=== PATIENT | female | born 1965 | race Caucasian/White ===

== ENCOUNTER 2019-12-28 10:11 | Outpatient (REF) | payer MEDICARE, MEDICAID, SELFPAY ==
[2019-12-31 23:34] LABS: SARS-CoV-2 RNA Undetected (Undetected); SARS-CoV-2 Specimen Source Nasopharynx
== END 2019-12-28 10:31 ==
LOC: NCHCN 10:11
PROVIDERS: PCP Internal Medicine; Visit Provider Nurse Practitioner Family
DX: Z11.59 Encounter for screening for other viral diseases (principal)
CPT/HCPCS: U0003

== ENCOUNTER 2021-01-02 16:07 | Outpatient (REF) | payer MEDICARE, MEDICAID, SELFPAY ==
[2021-01-02 19:57] LABS: ALT 33 U/L (14-59); AST 14 U/L (15-37); Albumin 3.9 g/dL (3.4-5.0); Alkaline Phosphatase 149 U/L (46-116); Anion Gap 9.9 mmol/L (3-11); BUN 21 mg/dL (7-18); Bilirubin, Total 0.3 mg/dL (0.2-1.0); CO2 30.1 mmol/L (21.0-32.0); CREATININE 0.8 mg/dL (0.55-1.02); Calcium 9.1 mg/dL (8.5-10.1); Chloride 103 mmol/L (98-107); Glucose 111 mg/dL (74-106); Sodium 143 mmol/L (136-145); Total Protein 7.4 g/dL (6.4-8.2)
== END 2021-01-02 16:08 | disposition home or self-care (01) ==
LOC: NCHCN 16:07
PROVIDERS: PCP Internal Medicine; Visit Provider Nurse Practitioner Family
DX: I10 Essential (primary) hypertension (principal)
CPT/HCPCS: 80053

== ENCOUNTER 2021-07-08 11:12 | Outpatient (CLI) | payer MEDICARE, MEDICAID, SELFPAY ==
--- NOTE | 2021-07-08 11:00 | RT.EKG_ITS ---
APPROVED REPORT Exam: Resting ECG Reason for Exam: NSTEMI Patient Location: O HR:78 bpm ECG Measurements Heart Rate 78 AXIS NV 161 P 70 QRSd 90 QRS 24 QT 373 T 82 QTc 425 Conclusion Sinus rhythm...normal P axis, V-rate 50- 99 Probable left atrial enlargement...P >50mS, <-0.10mV V1 Baseline wander in lead(s) III,aVF
== END 2021-07-08 11:13 | disposition home or self-care (01) ==
LOC: DI.CARD 11:12
PROVIDERS: PCP Internal Medicine; Visit Provider Internal Medicine Cardiovascular Disease
DX: I21.4 Non-ST elevation (NSTEMI) myocardial infarction (principal)
CPT/HCPCS: 93010

== ENCOUNTER → 2021-07-08 11:12 | Outpatient (BNVA) | payer MEDICARE, MEDICAID, SELFPAY | PROVIDERS: PCP Internal Medicine; Referring Provider Internal Medicine; Visit Provider Internal Medicine Cardiovascular Disease | DX: I73.9 Peripheral vascular disease, unspecified (principal); I25.2 Old myocardial infarction; K43.9 Ventral hernia without obstruction or gangrene; Z79.01 Long term (current) use of anticoagulants | CPT/HCPCS: 93005; 99203; 99204 ==

== ENCOUNTER 2021-10-20 15:01 | Outpatient (REF) | payer MEDICARE, MEDICAID, SELFPAY ==
[2021-10-20 19:56] LABS: ALT 23 U/L (14-59); AST 18 U/L (15-37); Albumin 3.4 g/dL (3.4-5.0); Alkaline Phosphatase 132 U/L (46-116); BUN 14 mg/dL (7-18); Bilirubin, Total 0.6 mg/dL (0.2-1.0); CREATININE 0.7 mg/dL (0.55-1.02); Calcium 9.2 mg/dL (8.5-10.1); Calculated LDL 66 mg/dL (<100); Chloride 100 mmol/L (98-107); Cholesterol 124 mg/dL (<200); Glucose 105 mg/dL (74-106); HDL Cholesterol 39 mg/dL (40-60); Sodium 138 mmol/L (136-145); Total Protein 7.4 g/dL (6.4-8.2); Triglyceride 98 mg/dL (<150)
== END 2021-10-20 15:02 | disposition home or self-care (01) ==
LOC: NCHCN 15:01
PROVIDERS: PCP Nurse Practitioner Family; Visit Provider Nurse Practitioner Family
DX: I25.10 Atherosclerotic heart disease of native coronary artery without angina pectoris (principal); I21.4 Non-ST elevation (NSTEMI) myocardial infarction
CPT/HCPCS: 80053; 80061

== ENCOUNTER → 2021-11-11 13:02 | Outpatient (BNVA) | payer MEDICARE, MEDICAID, SELFPAY | PROVIDERS: PCP Nurse Practitioner Family; Referring Provider Internal Medicine; Visit Provider Internal Medicine Cardiovascular Disease | DX: I48.0 Paroxysmal atrial fibrillation (principal); I25.2 Old myocardial infarction; Z79.01 Long term (current) use of anticoagulants | CPT/HCPCS: 99214 ==

== ENCOUNTER 2022-07-08 12:39 | Outpatient (REF) | payer MEDICARE, MEDICAID, SELFPAY ==
--- OUTSIDE RECORDS SUMMARY | 2022-07-08 12:43 | XMS_ITS | Continuity of Care Document ---
Author Name Unknown Organization [facility] Address [address] [place] [address] Care Team Providers Care Nutrition Educator Name Role Phone EdisonvenuNya Edvin Primary Care Physician [phone] Encounter [facility] Date(s): 03/17/22 - 03/17/[address] [address] Encounter Diagnosis Abdominal hernia(Discharge Diagnosis) - 03/17/22 Unspecified abdominal hernia without obstruction or gangrene(Final) - Discharge Disposition: Home or Self Care Attending Physician: Janice Diaz MD Admitting Physician: Janice Diaz MD Allergies, Adverse Reactions, Alerts Substance Reaction Severity Status doxycycline Skin rash Unknown Active acetaminophen-hydrocodone Skin rash Unknown Ac tive sulfADIAZINE Skin rash Unknown Active Immunizations Given and Recorded Vaccine Date Status Refusal Reason pneumococcal 13-valent conjugate vaccine 05/27/16 Recorded pneumococcal 23-polyvalent vaccine 07/02/15 Record ed Medications albuterol 90 mcg/inh aerosol inhaler 0 Refill(s) Start Date: 10/29/21 Status: Ordered aspirin 81 mg oral delayed release tablet 0 Refill(s) Start Date: 10/29/21 Status: Ordered atorvastatin 80 mg oral tablet 0 Refill(s) Start Date: 10/29/21 Status: Ordered clopidogrel 75 mg oral tablet 0 Refill(s) Start Date: 10/29/21 Status: Ordered Eliquis 5 mg oral tablet 0 Refill(s) Start Date: 10/29/21 Status: Ordered furosemide 20 mg oral tablet 0 Refill(s) Start Date: 10/29/21 Status: Ordered gabapentin 300 mg oral capsule 0 Refill(s) Start Date: 10/29/21 Status: Ordered levothyroxine 50 mcg (0.05 mg) oral tablet 0 Refill(s) Start Date: 10/29/21 Status: Ordered losartan 50 mg oral tablet 0 Refill(s) Start Date: 10/29/21 Status: Ordered nitroglycerin 0.4 mg sublingual tablet 0 Refill(s) Start Date: 10/29/21 Status: Ordered pantoprazole 40 mg oral delayed release tablet 0 Refill(s) Start Date: 10/29/21 Status: Ordered traZODone 50 mg oral tablet 0 Refill(s) Start Date: 10/29/21 Status: Ordered Trelegy Ellipta 100 mcg-62.5 mcg-25 mcg/inh inhalation powder 0 Refill(s) Start Date: 10/29/21 Status: Ordered Results Laboratory List Name Date CBC w/ Diff 03/17/22 Comprehensive Metabolic Panel (CMP) 03/17 Lactic Acid 03/17/22 Urinalysis with Micro if Indicated and C ulture if Indicated 03/17/22 Automated Diff 03/17/22 Most recent to oldest [Reference Range]: 1 WBC [5.0-10.0 x10^3/mcL] 12.8 x10^3/mcL *HI* (03/17/22 9:07 AM) RBC [4.1-5.3 x10^6/mcL] 5.3 x10^6/mcL (03/17/22 9:07 AM) Neutro Auto [40.0-75.0 %] 71.4 % (03/17/22 9:07 AM) Lymph Auto [20.0-50.0 %] 17.0 % *LOW* (03/17/22 9:07 AM) [place] Auto [2.0-15.0 %] 7.4 % (03/17/22 9:07 AM) Basophil Auto [0.0-1.0 %] 0.8 % (03/17/22 9:07 AM) BUN [7-18 mg/dL] 15 mg/dL (03/17/22 9:07 AM) UA Color Yellow (03/17/22 9:07 AM) Glucose Level [74-106 mg/dL] 104 mg/dL (03/17/22 9:07 AM) Potassium Level [3.5-5.1 mmol/L] 3.8 mmo l/L (03/17/22 9:07 AM) MCV [80.0-96.0] 86.6 (03/17/22 9:07 AM) UA Urobilinogen Normal (03/17/22 9:07 AM) UA Bili [Negative] Negative (03/17/22 9:07 AM) UA Ketones Negative (03/17/22 9:07 AM) AST [15-37 unit/L] 23 unit/L (03/17/22 9:07 AM) ALT [14-59 unit/L] 32 unit/L (03/17/22 9:07 AM) MCHC [31.0-35.0 g/dL] 31.7 g/dL (03/17/22 9:07 AM) Sodium Level [136-145 mmol/L] 142 mmol/L (03/17/22 9:07 AM) UA Leuk Est Negative (03/17/22 9:07 AM) UA Nitrite Negative (03/17/22 9:07 AM) UA Glucose [Negative] Negative (03/17/22 9:07 AM) Hct [37.0-47.0 %] 45.7 % (03/17/22 9:07 AM) Calcium Level [8.5-10.1 mg/dL] 9.0 mg/dL (03/17/22 9:07 AM) Albumin Level [3.4-5.0 g/dL] 3.5 g/dL (03/17/22 9:07 AM) Protein Total [6.4-8.2 g/dL] 7.4 g/dL (03/17/22 9:07 AM) UA Protein Negative (03/17/22 9:07 AM) MCH [26.0-32.0 pg] 27.5 pg (03/17/22 9:07 AM) Neutro Absolute 9.1 x10^3/mcL *NA* (03/17/22 9:07 AM) Bilirubin Total [0.2-1.0 mg/dL] 1.0 mg/d L (03/17/22 9:07 AM) Hgb [12.0-16.0 g/dL] 14.5 g/dL (03/17/22 9:07 AM) Alk Phos [46-146 unit/L] 146 unit/L (03/17/22 9:07 AM) UA Blood Negative (03/17/22 9:07 AM) UA Spec Grav 1.020 *NA* (03/17/22 9:07 AM) Platelets [130-450 x10^3/mcL] 456 x10^3/ mcL *HI* (03/17/22 9:07 AM) CO2 [21-32 mmol/L] 31 mmol/L (03/17/22 9:07 AM) Lactic Acid Lvl [0.7-2.1 mmol/L] 1.1 mmo l/L (03/17/22 9:07 AM) UA pH 7.0 *NA* (03/17/22 9:07 AM) eGFR Non-AA [>=60] 85 (03/17/22 9:07 AM) eGFR AA [>=60] 85 (03/17/22 9:07 AM) UA Appear Clear (03/17/22 9:07 AM) Chloride Level [98-107 mmol/L] 102 mmol/ L (03/17/22 9:07 AM) RDW-CV [11.7-17.0 %] 15.0 % (03/17/22 9:07 AM) Imm Gran Auto [0.0-0.9 %] 0.5 % (03/17/22 9:07 AM) Creatinine Level [0.55-1.02 mg/dL] 0.80 mg/dL (03/17/22 9:07 AM) Eos, Auto [1.0-6.0 %] 2.9 % (03/17/22 9:07 AM) Vital Signs Most recent to oldest [Reference Range]: 1 2 3 Temperature Tympanic [36.6-37.9 Deg C] 35.7 Deg C *LOW* (03/17/22 8:22 AM) Apical Heart Rate [60-100 bpm] 74 bpm (03/17/22 9:14 AM) Heart Rate Monitored [60-100 bpm] 75 bpm (03/17/22 11:22 AM) 76 bpm (03/17/22 10:30 AM) Respiratory Rate [12-24 br/min] 23 br/min (03/17/22 11:22 AM) 20 br/min (03/17/22 10:30 AM) 18 br/min (03/17/22 9:14 AM) Blood Pressure [90-140/60-90 mmHg] 129/48mmHg (03/17/22 11:22 AM) 118/68mmHg (03/17/22 9:14 AM) Weight 90.30 kg (03/17/22 8:22 AM) Weight Dosing 90.30 kg (03/17/22 8:34 AM) Height 160.200 cm (03/17/22 8:22 AM) Height/Length Dosing 160.200 cm (03/17/22 8:34 AM) Body Mass Index 35.000 kg/m2 (03/17/22 8:22 AM) Social History Social History Type Response Tobacco Former tobacco user Tobacco Use:. States that she stopped a few days ago per day. Sex Female Hospital Discharge Instructions Patient Education 03/17/2022 11:08:43 Hernia, Adult Hernia, Adult A hernia is the bulging of an organ or tissue through a weak spot in the muscles of the abdomen (abdominal wall). Hernias develop most often near the belly button (navel) or the area where the leg meets the lower abdomen (groin). Common types of hernias include: ??? Incisional hernia. This type bulges through a scar from an abdominal surgery. ??? Umbilical hernia. This type develops near the navel. ??? Inguinal hernia. This type develops in the groin or scrotum. ??? Femoral hernia. This type develops under the groin, in the upper thigh area. ??? Hiatal hernia. This type occurs when part of the stomach slides above the muscle that separatesthe abdomen from the chest (diaphragm). What are the causes? This condition may be caused by: ??? Heavy lifting. ??? Coughing over a long period of time. ??? Straining to have a bowel movement. Constipation can lead to straining. ??? An incision made during an abdominal surgery. ??? A physical problem that is present at (congenital defect). ??? Being overweight or obese. ??? Smoking. ??? Excess fluid in the abdomen. ??? Undescended testicles in males. What are the signs or symptoms? The main symptom is a skin-colored, rounded bulge in the area of the hernia. However, a bulge may not always be present. It may grow bigger or be more visible when you cough or strain (such as when lifting something heavy). A hernia that can be pushed back into the area (is reducible) rarely causes pain. A hernia that cannot be pushed back into the area (is incarcerated) may lose its blood supply (become strangulated). A hernia that is incarcerated may cause: ??? Pain. ??? Fever. ??? Nausea and vomiting. ??? Swelling. ??? Constipation. How is this diagnosed? A hernia may be diagnosed based on: ??? Your symptoms and medical history. ??? A physical exam. Your health care provider may ask you to cough or move in certain ways to see if the hernia becomes visible. ??? Imaging tests, such as: ??? X-rays. ??? Ultrasound. ??? CT scan. How is this treated? A hernia that is small and painless may not need to be treated. A hernia that is large or painful may be treated with surgery. Inguinal hernias may be treated with surgery to prevent incarceration orstrangulation. Strangulated hernias are always treated with surgery because a lack of blood supply to the trapped organ or tissue can cause it to . Surgery to treat a hernia involves pushing the bulge back into place and repairing the weak area ofthe muscle or abdominal wall. Follow these instructions at home: Activity ??? Avoid straining. ??? Do not lift anything that is heavier than 10 lb (4.5 kg), or the limit that you are told, untilyour health care provider says that it is safe. ??? When lifting heavy objects, lift with your leg muscles, not your back muscles. Preventing constipation ??? Take actions to prevent constipation. Constipation leads to straining with bowel movements, which can make a hernia worse or cause a hernia repair to break down. Your health care provider may recommend that you: ??? Drink enough fluid to keep your urine pale yellow. ??? Eat foods that are high in fiber, such as fresh fruits and vegetables, whole grains, and beans. ??? Limit foods that are high in fat and processed sugars, such as fried or sweet foods. ??? Take an auqn-mjs-ikddmdk or prescription medicine for constipation. General instructions ??? When coughing, try to cough gently. ??? You may try to push the hernia back in place by very gently pressing on it while lying down. Donot try to force the bulge back in if it will not push in easily. ??? If you are overweight, work with your health care provider to lose weight safely. ??? Do not use any products that contain nicotine or tobacco, such as cigarettes and e-cigarettes. If you need help quitting, ask your health care provider. ??? If you are scheduled for hernia repair, watch your hernia for any changes in shape, size, or color. Tell your health care provider about any changes or new symptoms. ??? Take namt-ezq-ubaxvrg and prescription medicines only as told by your health care provider. ??? Keep all follow-up visits as told by your health care provider. This is important. Contact a health care provider if: ??? You develop new pain, swelling, or redness around your hernia. ??? You have signs of constipation, such as: ??? Fewer bowel movements in a week than normal. ??? Difficulty having a bowel movement. ??? Stools that are dry, hard, or larger than normal. Get help right away if: ??? You have a fever. ??? You have abdomen pain that gets worse. ??? You feel nauseous or you vomit. ??? You cannot push the hernia back in place by very gently pressing on it while lying down. Do nottry to force the bulge back in if it will not push in easily. ??? The hernia: ??? Changes in shape, size, or color. ??? Feels hard or tender. These symptoms may represent a serious problem that is an emergency. Do not wait to see if the symptoms will go away. Get medical help right away. Call your local emergency services (911 in the [place] Summary ??? A hernia is the bulging of an organ or tissue through a weak spot in the muscles of the abdomen(abdominal wall). ??? The main symptom is a skin-colored, rounded lump (bulge) in the hernia area. However, a bulge may not always be present. It may grow bigger or more visible when you cough or strain (such as when having a bowel movement). ??? A hernia that is small and painless may not need to be treated. A hernia that is large or painful may be treated with surgery. ??? Surgery to treat a hernia involves pushing the bulge back into place and repairing the weak part of the abdomen. This information is not intended to replace advice given to you by your health care provider. Make sure you discuss any questions you have with your health care provider. Document Revised: 06/15/2019 Document Reviewed: 11/24/2017 [employer] Patient Education ?? 2020 [employer]. Physician Emergency department Note * Janice Diaz MD: PERFORM Event Display: ED Note Physician Authored Date: [id number] ADAIR KONG :1965 Age:57 years Sex:Female Visit Date:03/17/2022 Primary Care Physician: Nya Hernandez NP Basic Information Time Seen: Janice Diaz MD / 03/17/2022 08:23 Chief Complaint Patient has been vomiting since last night. Has a large hernia midline abdomen. States that the pain has gotten worse and the hernia has grown. 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 The patient says she was in her usual state of health??last evening.?? She reheated??some ham and cheese that her jsndkjhs-qn-dqt had made previously??and ate that for dinner. ??Shortly after??she had some severe abdominal cramping??and an episode of vomiting.?? After that she felt well again??and went to sleep.?? Around 2 AM she woke up again and had another episode of vomiting associated with cramping.?? Her symptoms subsided and she currently feels well with no abdominal pain??or nausea.?? She has had no constipation or diarrhea??and normal bowel movements??with no blood.?? This morning however she noted cloudy urine??and says that she is wondering if she has a UTI as she has had severalof them.?? She says she has no dysuria or hematuria??but also says that she never does with her UTIs.?? She has also noticed??increase in the size of her umbilical hernia??since the 2 episodes of vomiting.?? Her kqsmwowv-cw-yub says that she was scheduled??for surgical repair of this hernia??at [facility]??on February 18??but that she went back to smoking so they did not perform the surgery.??The patient's daughter in law reports slight redness over abdominal wall at the hernia site that has been present and unchanged in the past few weeks. The patient denies chest pain,??shortness of breath, dizziness, palpitations??or fatigue. Review of Systems: As above Physical Exam Vitals & Measurements T:??35.7?C ??(Tympanic)?? HR:??75??(Monitored)?? RR:??23?? BP:??129/48?? SpO2:??99%?? HT:??160.200??cm?? WT:??90.30??kg?? BMI:??35.000?? O2 Therapy:??Room air?? General: A&Ox3, Calm, no apparent distress, well developed, pleasant and cooperative ?? HEENT: Head ATNC. Eyes: DARLENE. Extraocular Mobility: intact and symmetrical. Conjunctiva: non-injected, anicteric, no discharge. Oral Cavity: moist. Neck: no masses, no crepitus. Lymph Nodes: no cervical lymphadenopathy? Respiratory: CTA bilaterally, no wheezing, no rales/crackles? CV: RRR, normal S1, normal S2, no murmurs, rubs or gallops ?? Abdomen : obese, large nonreducible??nontender??umbilical hernia??with redish - normal warmth - overlying skin. The abdomen is soft, non-tender, non-distended, no rebound or guarding, no hepatosplenomegaly ?? Extremities: Rt AKA, LLE with??no le swelling, warm and well-perfused, no cyanosis, capillary refill <2 seconds? Skin: no rash, no lesions, no bruising? Neuro: normal tone, normal strength in all 4 extremities, sensation intact?? 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 Thorough chart review performed. The patient is well nontoxic-appearing with reassuring vital signs, appears well-hydrated There is a large??nonreducible nontender??hernia??with??some skin changes??without evidence of??cellulitis, but the skin changes are concerning for??some local ischemia in that area Unclear etiology of??episodes of vomiting,??possibly food poisoning??but the patient has no diarrhea, possibly UTI, less likely atypical ACS Plan:??Labs,??ekg, Zofran as needed but patient currently not nauseous,??small amount of fluids,??CT of the abdomen pelvis Procedure No Qualifying Data Reexamination/Reevaluation Labs and UA unremarkable except for very mild leukocytosis.CT shows worsening hernia without strangulation or ischemia. The patient ate a few crackers and drank some coffee per her requested, with nonausea or vomiting. She requested d/c greg. Discussed need to reach out to her surgeon to reschedulesurgery, avoid smoking, discussed return precautions. All questions answered. Assessment/Plan 1.??Abdominal hernia??K46.9 Ordered: Discharge Patient, 03/17/22 12:27:00 EST, Constant Indicator ?? Orders: !-Zofran, 4 mg = 2 mL, IV Push, Soln, every 6 hr, PRN nausea/vomiting, First Dose: 03/17/22 8:47:00EST, STAT Patient Education Hernia, Adult Medication Reconciliation Unchanged albuterol (albuterol 90 mcg/inh aerosol inhaler) ?? apixaban (Eliquis 5 mg oral tablet) ?? aspirin (aspirin 81 mg oral delayed release tablet) ?? atorvastatin (atorvastatin 80 mg oral tablet) ?? clopidogrel (clopidogrel 75 mg oral tablet) ?? fluticasone/umeclidinium/vilanterol (Trelegy Ellipta 100 mcg-62.5 mcg-25 mcg/inh inhalation powder) ?? furosemide (furosemide 20 mg oral tablet) ?? gabapentin (gabapentin 300 mg oral capsule) ?? levothyroxine (levothyroxine 50 mcg (0.05 mg) oral tablet) ?? losartan (losartan 50 mg oral tablet) ?? nitroglycerin (nitroglycerin 0.4 mg sublingual tablet) ?? pantoprazole (pantoprazole 40 mg oral delayed release tablet) ?? traZODone (traZODone 50 mg oral tablet) Problem List/Past Medical History Ongoing No qualifying data Historical No qualifying data Medication Administration Given 0.9% NaCl bolus, 500 mL, IV Bolus Allergies acetaminophen-hydrocodone??(Skin rash) doxycycline??(Skin rash) sulfADIAZINE??(Skin rash) Social History Alcohol Past- Comments: Quit about 3 months ago Electronic Cigarette/Vaping Electronic Cigarette Use: Never. Substance Use Never Tobacco Former tobacco user Tobacco Use:. States that she stopped a few days ago per day. Lab Results CBC and Differential?? LATEST RESULTS?? HISTORICAL RESULTS?? WBC?? 03/17/22 09:07?? 12.8 ??High?? 03/15/22?? 13.0 ??High?? RBC?? 03/17/22 09:07?? 5.3?? 03/15/22?? 5.1?? Hgb?? 03/17/22 09:07?? 14.5?? 03/15/22?? 14.2?? Hct?? 03/17/22 09:07?? 45.7?? 03/15/22?? 44.1?? MCV?? 03/17/22 09:07?? 86.6?? 03/15/22?? 86.8?? MCH?? 03/17/22 09:07?? 27.5?? 03/15/22?? 28.0?? MCHC?? 03/17/22 09:07?? 31.7?? 03/15/22?? 32.2?? RDW-CV?? 03/17/22 09:07?? 15.0?? 03/15/22?? 14.6?? Platelets?? 03/17/22 09:07?? 456 ??High?? 03/15/22?? 474 ??High?? Neutro Auto?? 03/17/22 09:07?? 71.4? Lymph Auto?? 03/17/22 09:07?? 17.0 ??Low? [place] Auto?? 03/17/22 09:07?? 7.4? Eos, Auto?? 03/17/22 09:07?? 2.9? Basophil Auto?? 03/17/22 09:07?? 0.8? Imm Gran Auto?? 03/17/22 09:07?? 0.5? Neutro Absolute?? 03/17/22 09:07?? 9.1? Routine Chemistry?? LATEST RESULTS?? Sodium Level?? 03/17/22 09:07?? 142?? Potassium Level?? 03/17/22 09:07?? 3.8?? Chloride Level?? 03/17/22 09:07?? 102?? CO2?? 03/17/22 09:07?? 31?? Alk Phos?? 03/17/22 09:07?? 146?? AST?? 03/17/22 09:07?? 23?? ALT?? 03/17/22 09:07?? 32?? BUN?? 03/17/22 09:07?? 15?? Glucose Level?? 03/17/22 09:07?? 104?? Creatinine Level?? 03/17/22 09:07?? 0.80?? eGFR AA?? 03/17/22 09:07?? 85?? eGFR Non-AA?? 03/17/22 09:07?? 85?? Calcium Level?? 03/17/22 09:07?? 9.0?? Protein Total?? 03/17/22 09:07?? 7.4?? Albumin Level?? 03/17/22 09:07?? 3.5?? Bilirubin Total?? 03/17/22 09:07?? 1.0?? Lactic Acid Lvl?? 03/17/22 09:07?? 1.1? UA Macroscopic?? LATEST RESULTS?? UA Color?? 01/10/23 09:07?? Yellow?? UA Appear?? 03/17/22 09:07?? Clear?? UA Glucose?? 03/17/22 09:07?? Negative?? UA Bili?? 03/17/22 09:07?? Negative?? UA Ketones?? 03/17/22 09:07?? Negative?? UA Spec Grav?? 03/17/22 09:07?? 1.020?? UA Blood?? 03/17/22 09:07?? Negative?? UA pH?? 03/17/22 09:07?? 7.0?? UA Protein?? 03/17/22 09:07?? Negative?? UA Urobilinogen?? 03/17/22 09:07?? Normal?? UA Nitrite?? 03/17/22 09:07?? Negative?? UA Leuk Est?? 03/17/22 09:07?? Negative? Electronically Signed on 03/17/22 12:34 PM Janice Diaz MD Emergency department Discharge instructions * Janice Diaz MD: PERFORM Event Display: ED Discharge Information Authored Date: [id number] ADAIR KONG :1965 Age:57 years Sex:Female Visit Date:03/17/2022 Primary Care Physician: Nya Hernandez CONDUIT BENDER Discharge Instructions We would like to thank you for allowing us to assist you with your healthcare needs. The following includes patient education materials and information regarding your injury/illness. Diagnosis from Today's Visit Abdominal hernia Discharge Vitals Temperature??(Tympanic) 96.3 ??F (35.7 ??C) Heart Rate??(Monitored) 75 Respiratory Rate?? 23 Blood Pressure?? 129/48?? Height?? 63.07 in (160.200 cm) Weight?? 199.11 lb (90.30 kg) BMI?? 35.000 Allergies acetaminophen-hydrocodone??(Skin rash) doxycycline??(Skin rash) sulfADIAZINE??(Skin rash) What to Do Next Instructions from Your Care Team Please??eat and drink small amounts of food and fluids every few hours. ??Follow-up with your surgeon??for rescheduling of your hernia repair.?? Return to the emergency department for any new or worsening symptoms. You were treated today on an emergency basis; it may be person to contact your primary care provider to notify them of your visit today. You may have been referred to your regular doctor or a specialist, please follow up as instructed. If your condition worsens or you can't get in to see the doctor, contact the Emergency Department. Medications What When Instructions Next Dose Unchanged albuterol (albuterol 90 mcg/ inh aerosol inhaler) Unchanged apixaban (Eliquis 5 mg oral tablet) Unchanged aspirin (aspirin 81 mg oral delayed release tablet) Unchanged atorvastatin (atorvastatin 80 mg oral tablet) Unchanged clopidogrel (clopidogrel 75 mg oral tablet) Unchanged fluticasone/ umeclidinium/ vilanterol (Trelegy Ellipta 100 mcg-62.5 mcg-25 mcg/ inh inhalation powder) Unchanged furosemide (furosemide 20 mg oral tablet) Unchanged gabapentin (gabapentin 300 mg oral capsule) Unchanged levothyroxine (levothyroxine 50 mcg (0.05 mg) oral tablet) Unchanged losartan (losartan 50 mg oral tablet) Unchanged nitroglycerin (nitroglycerin 0.4 mg sublingual tablet) Unchanged pantoprazole (pantoprazole 40 mg oral delayed release tablet) Unchanged traZODone (traZODone 50 mg oral tablet) Education Materials Hernia, Adult A hernia is the bulging of an organ or tissue through a weak spot in the muscles of the abdomen (abdominal wall). Hernias develop most often near the belly button (navel) or the area where the leg meets the lower abdomen (groin). Common types of hernias include: ? Incisional hernia. This type bulges through a scar from an abdominal surgery. ? Umbilical hernia. This type develops near the navel. ? Inguinal hernia. This type develops in the groin or scrotum. ? Femoral hernia. This type develops under the groin, in the upper thigh area. ? Hiatal hernia. This type occurs when part of the stomach slides above the muscle that separates theabdomen from the chest (diaphragm). What are the causes? This condition may be caused by: ? Heavy lifting. ? Coughing over a long period of time. ? Straining to have a bowel movement. Constipation can lead to straining. ? An incision made during an abdominal surgery. ? A physical problem that is present at (congenital defect). ? Being overweight or obese. ? Smoking. ? Excess fluid in the abdomen. ? Undescended testicles in males. What are the signs or symptoms? The main symptom is a skin-colored, rounded bulge in the area of the hernia. However, a bulge may not always be present. It may grow bigger or be more visible when you cough or strain (such as when lifting something heavy). A hernia that can be pushed back into the area (is reducible) rarely causes pain. A hernia that cannot be pushed back into the area (is incarcerated) may lose its blood supply (become strangulated). A hernia that is incarcerated may cause: ? Pain. ? Fever. ? Nausea and vomiting. ? Swelling. ? Constipation. How is this diagnosed? A hernia may be diagnosed based on: ? Your symptoms and medical history. ? A physical exam. Your health care provider may ask you to cough or move in certain ways to see if the hernia becomes visible. ? Imaging tests, such as: ? X-rays. ? Ultrasound. ? CT scan. How is this treated? A hernia that is small and painless may not need to be treated. A hernia that is large or painful may be treated with surgery. Inguinal hernias may be treated with surgery to prevent incarceration orstrangulation. Strangulated hernias are always treated with surgery because a lack of blood supply to the trapped organ or tissue can cause it to . Surgery to treat a hernia involves pushing the bulge back into place and repairing the weak area ofthe muscle or abdominal wall. Follow these instructions at home: Activity ? Avoid straining. ? Do not lift anything that is heavier than 10 lb (4.5 kg), or the limit that you are told, until your health care provider says that it is safe. ? When lifting heavy objects, lift with your leg muscles, not your back muscles. Preventing constipation ? Take actions to prevent constipation. Constipation leads to straining with bowel movements, which can make a hernia worse or cause a hernia repair to break down. Your health care provider may recommend that you: ? Drink enough fluid to keep your urine pale yellow. ? Eat foods that are high in fiber, such as fresh fruits and vegetables, whole grains, and beans. ? Limit foods that are high in fat and processed sugars, such as fried or sweet foods. ? Take an iciy-zyy-yllrtze or prescription medicine for constipation. General instructions ? When coughing, try to cough gently. ? You may try to push the hernia back in place by very gently pressing on it while lying down. Do nottry to force the bulge back in if it will not push in easily. ? If you are overweight, work with your health care provider to lose weight safely. ? Do not use any products that contain nicotine or tobacco, such as cigarettes and e-cigarettes. If you need help quitting, ask your health care provider. ? If you are scheduled for hernia repair, watch your hernia for any changes in shape, size, or color.Tell your health care provider about any changes or new symptoms. ? Take hgdq-kyu-vqlxoor and prescription medicines only as told by your health care provider. ? Keep all follow-up visits as told by your health care provider. This is important. Contact a health care provider if: ? You develop new pain, swelling, or redness around your hernia. ? You have signs of constipation, such as: ? Fewer bowel movements in a week than normal. ? Difficulty having a bowel movement. ? Stools that are dry, hard, or larger than normal. Get help right away if: ? You have a fever. ? You have abdomen pain that gets worse. ? You feel nauseous or you vomit. ? You cannot push the hernia back in place by very gently pressing on it while lying down. Do not tryto force the bulge back in if it will not push in easily. ? The hernia: ? Changes in shape, size, or color. ? Feels hard or tender. These symptoms may represent a serious problem that is an emergency. Do not wait to see if the symptoms will go away. Get medical help right away. Call your local emergency services (911 in the [place] Summary ? A hernia is the bulging of an organ or tissue through a weak spot in the muscles of the abdomen (abdominal wall). ? The main symptom is a skin-colored, rounded lump (bulge) in the hernia area. However, a bulge may not always be present. It may grow bigger or more visible when you cough or strain (such as when having a bowel movement). ? A hernia that is small and painless may not need to be treated. A hernia that is large or painful may be treated with surgery. ? Surgery to treat a hernia involves pushing the bulge back into place and repairing the weak part ofthe abdomen. This information is not intended to replace advice given to you by your health care provider. Make sure you discuss any questions you have with your health care provider. Document Revised: 06/15/2019 Document Reviewed: 11/24/2017 [employer] Patient Education ?? 2020 [employer] Tests Performed Medications and Immunizations Administered Given 0.9% NaCl bolus, 500 mL, IV Bolus Lab Test Name Test Result Date/Time WBC 12.8 x10^3/mcL 03/17/2022 09:07 EST RBC 5.3 x10^6/mcL 03/17/2022 09:07 EST Hgb 14.5 g/dL 03/17/2022 09:07 EST Hct 45.7 % 03/17/2022 09:07 EST MCV 86.6 03/17/2022 09:07 EST MCH 27.5 pg 03/17/2022 09:07 EST MCHC 31.7 g/dL 03/17/2022 09:07 EST RDW-CV 15.0 % 03/17/2022 09:07 EST Platelets 456 x10^3/mcL 03/17/2022 09:07 EST Neutro Auto 71.4 % 03/17/2022 09:07 EST Lymph Auto 17.0 % 03/17/2022 09:07 EST [place] Auto 7.4 % 03/17/2022 09:07 EST Eos, Auto 2.9 % 03/17/2022 09:07 EST Basophil Auto 0.8 % 03/17/2022 09:07 EST Imm Gran Auto 0.5 % 03/17/2022 09:07 EST Neutro Absolute 9.1 x10^3/mcL 03/17/2022 09:07 EST Sodium Level 142 mmol/L 03/17/2022 09:07 EST Potassium Level 3.8 mmol/L 03/17/2022 09:07 EST Chloride Level 102 mmol/L 03/17/2022 09:07 EST CO2 31 mmol/L 03/17/2022 09:07 EST Alk Phos 146 unit/L 03/17/2022 09:07 EST AST 23 unit/L 03/17/2022 09:07 EST ALT 32 unit/L 03/17/2022 09:07 EST BUN 15 mg/dL 03/17/2022 09:07 EST Glucose Level 104 mg/dL 03/17/2022 09:07 EST Creatinine Level 0.80 mg/dL 03/17/2022 09:07 EST eGFR AA 85 03/17/2022 09:07 EST eGFR Non-AA 85 03/17/2022 09:07 EST Calcium Level 9.0 mg/dL 03/17/2022 09:07 EST Protein Total 7.4 g/dL 03/17/2022 09:07 EST Albumin Level 3.5 g/dL 03/17/2022 09:07 EST Bilirubin Total 1.0 mg/dL 03/17/2022 09:07 EST Lactic Acid Lvl 1.1 mmol/L 03/17/2022 09:07 EST UA Color YELLOW. 03/17/2022 09:07 EST UA Appear CLEAR. 03/17/2022 09:07 EST UA Glucose NEGATIVE 03/17/2022 09:07 EST UA Bili NEGATIVE 03/17/2022 09:07 EST UA Ketones NEGATIVE 03/17/2022 09:07 EST UA Spec Grav 1.020 03/17/2022 09:07 EST UA Blood NEGATIVE 03/17/2022 09:07 EST UA pH 7.0 03/17/2022 09:07 EST UA Protein NEGATIVE 03/17/2022 09:07 EST UA Urobilinogen 0.2 Uro 03/17/2022 09:07 EST UA Nitrite NEGATIVE 03/17/2022 09:07 EST UA Leuk Est NEGATIVE 03/17/2022 09:07 EST Patient/Can Reconditioner Signature Patient Name:ADAIR KONG I have received this information and my questions have been answered. Patient/Can Reconditioner Name: Patient/Can Reconditioner Signature: Relationship to Patient: Witness Name/Signature: Date: Electronically Signed on: 03/17/2022 12:27 ESTSigned by:Gabi Emergency department Note * Shari Duncan: PERFORM Event Display: ED Notes Authored Date: [id number] Patient Care team information Personnel Name: Nya Hernandez NP Address: Address: [address] [place] [id number]
--- OUTSIDE RECORDS SUMMARY | 2022-07-08 12:43 | XMS_ITS | Continuity of Care Document ---
Author Name Unknown Organization [facility] Address [address] [place] [address] Care Team Providers Care Permanent Mold Supervisor Name Role Phone David Nya Edvin Primary Care Physician [phone] Encounter [facility] Date(s): 03/30/22 - 03/30/[address] [phone] Discharge Disposition: Home or Self Care Attending Physician: Whit Nance MD Admitting Physician: Whit Nance MD Referring Physician: Whit Nance MD Allergies, Adverse Reactions, Alerts Substance Reaction Severity Status doxycycline Skin rash Unknown Active acetaminophen-hydrocodone Skin rash Unknown Ac tive sulfADIAZINE Skin rash Unknown Active Assessment and Plan Diagnostic Tests Pending * Nicotine & Metabolites, S MARCELO 03/30/22 Immunizations Given and Recorded Vaccine Date Status [...] 0 Refill(s) Start Date: 10/29/21 Status: Ordered Social History Social History Type Response Tobacco Former tobacco user Tobacco Use:. 1 Sex Female 1quit over a month ago Patient Care team information Personnel Name: Nya Hernandez NP Address: Address: [address] [place] [address]
--- OUTSIDE RECORDS SUMMARY | 2022-07-08 12:43 | XMS_ITS | Continuity of Care Document ---
Author Name Unknown Organization [facility] Address [address] [place] [address] Care Team Providers Care Senior Recruiter Name Role Phone Nya Hernandez Primary Care Physician [phone] Encounter [facility] Date(s): 03/15/22 - 03/15/[address] [phone] Discharge Disposition: Home or Self Care Attending Physician: DR. ANASTACIA KAPLAN Admitting Physician: DR. ANASTACIA KAPLAN Referring Physician: DR. ANASTACIA KAPLAN Allergies, Adverse Reactions, Alerts Substance Reaction Severity Status doxycycline Skin rash Unknown Active acetaminophen-hydrocodone Skin rash Unknown Ac tive sulfADIAZINE Skin rash Unknown Active Assessment and Plan Diagnostic Tests Pending * Nicotine & Metabolites, S MARCELO 03/15/22 Immunizations Given and Recorded Vaccine Date Status [...] Ordered Results Laboratory List Name Date CBC w/o Diff 03/15/22 Most recent to oldest [Reference Range]: 1 WBC [5.0-10.0 x10^3/mcL] 13.0 x10^3/mcL *[facility]* (03/15/22 4:44 PM) RBC [4.1-5.3 x10^6/mcL] 5.1 x10^6/mcL (03/15/22 4:44 PM) MCV [80.0-96.0] 86.8 (03/15/22 4:44 PM) MCHC [31.0-35.0 g/dL] 32.2 g/dL (03/15/22 4:44 PM) Hct [37.0-47.0 %] 44.1 % (03/15/22 4:44 PM) MCH [26.0-32.0 pg] 28.0 pg (03/15/22 4:44 PM) Hgb [12.0-16.0 g/dL] 14.2 g/dL (03/15/22 4:44 PM) Platelets [130-450 x10^3/mcL] 474 x10^3/ mcL *HI* (03/15/22 4:44 PM) RDW-CV [11.7-17.0 %] 14.6 % (03/15/22 4:44 PM) Social History Social History Type Response Tobacco Current some day tob acco user Tobacco Use:. not every day per day. Sex Female Patient Care team information Personnel Name: Nya Hernandez LOG MANAGER Address: Address: [address] [place] [phone] [place]
--- OUTSIDE RECORDS SUMMARY | 2022-07-08 12:43 | XMS_ITS | Continuity of Care Document ---
Author Name Unknown Organization [facility] Address [address] [place] [address] Care Team Providers Care Wild Animal Caretaker Name Role Phone Nya Hernandez Primary Care Physician Encounter [id number] Date(s): 03/31/22 - 03/31/[address] [address] Encounter Diagnosis Abscess(Discharge Diagnosis) - 03/31/22 Cutaneous abscess, unspecified(Final) - Other extermination supervisor (current) drug therapy(Final) - Personal history of nicotine dependence(Final) - Discharge Disposition: Home or Self Care Attending Physician: Taylor Rehman MD Admitting Physician: Taylor Rehman MD Allergies, Adverse Reactions, Alerts Substance Reaction Severity Status doxycycline Skin rash Unknown Active acetaminophen-hydrocodone Skin rash Unknown Ac tive sulfADIAZINE Skin rash Unknown Active Functional Status 03/31/22 Other exposure to Infectious Disease Non e Immunizations Given and Recorded Vaccine Date Status Refusal Reason pneumococcal 13-valent conjugate vaccine 05/27/16 Recorded pneumococcal 23-polyvalent vaccine 07/02/15 Record ed Medications albuterol 90 mcg/inh aerosol inhaler 0 Refill(s) Start Date: 10/29/21 Status: Ordered aspirin 81 mg oral delayed release tablet 0 Refill(s) Start Date: 10/29/21 Status: Ordered atorvastatin 80 mg oral tablet 0 Refill(s) Start Date: 10/29/21 Status: Ordered cephalexin 500 mg oral capsule 500 mg = 1 cap, Oral, QID, X 7 days, # 28 cap, 0 Refill(s), 04/07/22 10:25:00 EST, Pharmacy: [facility] #[id number], 160, cm, 03/31/22 9:23:00 EST, Height/Length Dosing, 89.81, kg, 03/31/22 9:23:00 EST, Weight Dosing Start Date: 03/31/22 Stop Date: 04/07/22 Status: Ordered clopidogrel 75 mg oral tablet [...] Refill(s) Start Date: 10/29/21 Status: Ordered Results Orders for Microbiology Reports Name Date Wound Culture 03/31/22 Microbiology Reports TEST:Wound Culture STATUS:Order in Progress BODY SITE:Face SOURCE:Abscess COLLECTED DATE/TIME:03/31/22 10:20 AM STAIN REPORT Moderate White Blood Cells Rare Gram Positive Cocci Vital Signs Most recent to oldest [Reference Range]: 1 Temperature Temporal Artery [36-38 Deg C ] 35.8 Deg C *LOW* (03/31/22 9:08 AM) Peripheral Pulse Rate [60-100 bpm] 71 bp m (03/31/22 9:08 AM) Respiratory Rate [12-24 br/min] 16 br/mi n (03/31/22 9:08 AM) Blood Pressure [90-140/60-90 mmHg] 120/6 9mmHg (03/31/22 9:08 AM) Weight Dosing 89.81 kg (03/31/22 9:23 AM) Weight Estimated 89.81 kg (03/31/22 9:08 AM) Height/Length Dosing 160.000 cm (03/31/22 9:23 AM) Height/Length Estimated 160.000 cm (03/31/22 9:08 AM) Social History Social History Type Response Tobacco Former tobacco user Tobacco Use:. 1 Sex Female 1quit over a month ago Hospital Discharge Instructions Patient Education 03/31/2022 09:09:52 Skin Abscess Skin Abscess A skin abscess is an infected area on or under your skin that contains a collection of pus and other material. An abscess may also be called a furuncle, carbuncle, or boil. An abscess can occur in oron almost any part of your body. Some abscesses break open (rupture) on their own. Most continue to get worse unless they are treated. The infection can spread deeper into the body and eventually into your blood, which can make you feel ill. Treatment usually involves draining the abscess. What are the causes? An abscess occurs when germs, like bacteria, pass through your skin and cause an infection. This may be caused by: ??? A scrape or cut on your skin. ??? A puncture wound through your skin, including a needle injection or insect bite. ??? Blocked oil or sweat glands. ??? Blocked and infected hair follicles. ??? A cyst that forms beneath your skin (sebaceous cyst) and becomes infected. What increases the risk? This condition is more likely to develop in people who: ??? Have a weak body defense system (immune system). ??? Have diabetes. ??? Have dry and irritated skin. ??? Get frequent injections or use illegal IV drugs. ??? Have a foreign body in a wound, such as a splinter. ??? Have problems with their lymph system or veins. What are the signs or symptoms? Symptoms of this condition include: ??? A painful, firm bump under the skin. ??? A bump with pus at the top. This may break through the skin and drain. Other symptoms include: ??? Redness surrounding the abscess site. ??? Warmth. ??? Swelling of the lymph nodes (glands) near the abscess. ??? Tenderness. ??? A sore on the skin. How is this diagnosed? This condition may be diagnosed based on: ??? A physical exam. ??? Your medical history. ??? A sample of pus. This may be used to find out what is causing the infection. ??? Blood tests. ??? Imaging tests, such as an ultrasound, CT scan, or MRI. How is this treated? A small abscess that drains on its own may not need treatment. Treatment for larger abscesses may include: ??? Moist heat or heat pack applied to the area several times a day. ??? A procedure to drain the abscess (incision and drainage). ??? Antibiotic medicines. For a severe abscess, you may first get antibiotics through an IV and then change to antibiotics by mouth. Follow these instructions at home: Medicines ??? Take gonw-who-ufxsmce and prescription medicines only as told by your health care provider. ??? If you were prescribed an antibiotic medicine, take it as told by your health care provider. Donot stop taking the antibiotic even if you start to feel better. Abscess care ??? If you have an abscess that has not drained, apply heat to the affected area. Use the heat source that your health care provider recommends, such as a moist heat pack or a heating pad. ??? Place a towel between your skin and the heat source. ??? Leave the heat on for 20???30 minutes. ??? Remove the heat if your skin turns bright red. This is especially important if you are unable to feel pain, heat, or cold. You may have a greater risk of getting burned. ??? Follow instructions from your health care provider about how to take care of your abscess. Makesure you: ??? Cover the abscess with a bandage (dressing). ??? Change your dressing or gauze as told by your health care provider. ??? Wash your hands with soap and water before you change the dressing or gauze. If soap and water are not available, use hand rigging loft repairer. ??? Check your abscess every day for signs of a worsening infection. Check for: ??? More redness, swelling, or pain. ??? More fluid or blood. ??? Warmth. ??? More pus or a bad smell. General instructions ??? To avoid spreading the infection: ??? Do not share personal care items, towels, or hot tubs with others. ??? Avoid making skin contact with other people. ??? Keep all follow-up visits as told by your health care provider. This is important. Contact a health care provider if you have: ??? More redness, swelling, or pain around your abscess. ??? More fluid or blood coming from your abscess. ??? Warm skin around your abscess. ??? More pus or a bad smell coming from your abscess. ??? A fever. ??? Muscle aches. ??? Chills or a general ill feeling. Get help right away if you: ??? Have severe pain. ??? See red streaks on your skin spreading away from the abscess. Summary ??? A skin abscess is an infected area on or under your skin that contains a collection of pus and other material. ??? A small abscess that drains on its own may not need treatment. ??? Treatment for larger abscesses may include having a procedure to drain the abscess and taking an antibiotic. This information is not intended to replace advice given to you by your health care provider. Make sure you discuss any questions you have with your health care provider. Document Revised: 06/15/2019 Document Reviewed: 04/07/2018 [employer] Patient Education ?? 2021 [employer]. Follow Up Care 03/31/2022 09:08:31 With:Follow up with primary care provider Address: When:1 to 2 weeks Physician Emergency department Note * Taylor Rehman MD: PERFORM Event Display: ED Note Physician Authored Date: [id number] ADAIR KONG :1965 Age:57 years Sex:Female Visit Date:03/31/2022 Primary Care Physician: Nya Hernandez NP Basic Information Time Seen: Taylor Rehman MD / 03/31/2022 09:35 Chief Complaint Abcess on R side chin for a few weeks. Finished abx course as prescribed by PCP 2 days ago of amoxicillin. Pt denies fevers. C/o localized pain to bump on face. History Of Present Illness: Patient reports that she has had an area on the right side of her??chin for a few weeks she thinks it was??from an abscessed tooth. ??She states her son tried to squeeze it??and it seemed to get worse after that. ??Patient did??recently finish a prescription for amoxicillin. ??No fevers.?? Patient is allergic to sulfa and doxycycline she states.?? Patient is on Eliquis and is hoping to have the area drained. Review of Systems: see hpi for ros Physical Exam Vitals & Measurements T:??35.8?C ??(Temporal Artery)?? HR:??71??(Peripheral)?? RR:??16?? BP:??120/69?? SpO2:??94%?? HT:??160.000??cm?? WT:??89.81??kg??(Estimated)?? Pain Score:??7?? O2 Therapy:??Room air?? General: Alert and oriented, well nourished,?No??acute distress Eye: PER,?Normal??conjunctiva, No scleral icterus HENT: Normocephalic??except for abscess right jaw area??normal?? hearing?? Respiratory:??Respiration??no distress??no increased work of breathing Chest: wall excursion wnl no abnormal movements no obvious deformities Musculoskeletal:?Normal?? range of motion and strength,?No??tenderness,?No??swelling Skin: Skin is warm, dry and pink,?No??rashes,?No??lesions, erythematous swollen area right lower jaw??consistent with likely abscess area Neurologic: Awake, alert and oriented X4 Psychiatric: Cooperative, appropriate mood and affect Right lower jaw gently cleaned with Hibiclens x3??0.5 cc of 1% lidocaine??instilled within the area??for local anesthetic??20-gauge needle??removed 0.5 cc of mostly??bloody??discharge Pocus small amount of fluid consistent with small abscess??present on ultrasound prior to I & D Medical Decision Making: For MDM please see under assessment and plan Procedure No Qualifying Data Assessment/Plan 1.??Abscess??L02.91 Only small amount of fluid was able to be obtained??from a 20-gauge needle aspiration and abscess area??this was enough to be able to??send??a wound culture. ??Given patient's allergies patient was placed on??Keflex 500 mg 4 times a day??patient is aware wound culture is pending??and will take several days??to??grow and report sensitivities.?? If patient worsens or does not improve will return tothe emergency department or see primary care provider. Ordered: cephalexin 500 mg oral capsule, 500 mg = 1 cap, Oral, QID, X 7 days, # 28 cap, 0 Refill(s), 04/07/22 10:25:00 EST, Pharmacy: [facility] #[id number], 160, cm, 03/31/22 9:23:00 EST, Height/Length Dosing,89.81, kg, 03/31/22 9:23:00 EST, Weight Dosing Discharge Patient, 03/31/22 10:09:00 EST, Home Independently, Constant Indicator Wound Culture, Abscess, Face, Stat collect, ST - Stat, 03/31/22 10:06:00 EST, Once, Nurse collect, Abscess, Print Label ?? Patient Education Skin Abscess Follow Up With When Contact Information Follow up with primary care provider Within 1 to 2 weeks Additional Instructions: Medication Reconciliation New Prescription cephalexin (cephalexin 500 mg oral capsule)1 Capsules Oral (given by mouth) 4 times a day for 7 Days. Refills: 0. ?? Unchanged albuterol (albuterol 90 mcg/inh aerosol inhaler) [...] No qualifying data Historical No qualifying data Allergies acetaminophen-hydrocodone??(Skin rash) doxycycline??(Skin rash) sulfADIAZINE??(Skin rash) Social History Alcohol Past- Comments: Quit about 3 months ago Electronic Cigarette/Vaping Electronic Cigarette Use: Never. Home/Environment Living situation: Home with assistance. Substance Use Never Tobacco Former tobacco user Tobacco Use:.- Comments: quit over a month ago Electronically Signed on 03/31/22 10:42 AM Taylor Rehman MD Emergency department Discharge instructions * Taylor Rehman MD: PERFORM Event Display: ED Discharge Information Authored Date: [id number] ADAIR KONG :1965 Age:57 years Sex:Female Visit Date:03/31/2022 Primary Care Physician: Nya Hernandez INFORMATION TECHNOLOGY DATA ANALYST Discharge Instructions We would like to thank you for allowing us to assist you with your healthcare needs. The following includes patient education materials and information regarding your injury/illness. Diagnosis from Today's Visit Abscess Discharge Vitals Temperature??(Temporal Artery) 96.4 ??F (35.8 ??C) Heart Rate??(Peripheral) 71 Respiratory Rate?? 16 Blood Pressure?? 120/69?? Height?? 62.99 in (160.000 cm) Weight??(Estimated) 198.03 lb (89.81 kg) Allergies acetaminophen-hydrocodone??(Skin rash) doxycycline??(Skin rash) sulfADIAZINE??(Skin rash) What to Do Next Instructions from Your Care Team Keflex (cephalexin) 500 mg 4 times a day for 7 days.?? If you worsen return to the emergency department or see your primary care provider. You may take up to 1000 mg??of Tylenol??(acetaminophen) every 6 hours as needed??for pain or discomfort for maximum 4000 mg in 24 hours or you may permanently hurt your liver. You Need to Schedule the Following Appointments Follow Up with??Follow up with primary care provider When:??Within 1 to 2 weeks You were treated today on an emergency basis; it may be person to contact your primary care provider to notify them of your visit today. You may have been referred to your regular doctor or a specialist, please follow up as instructed. If your condition worsens or you can't get in to see the doctor, contact the Emergency Department. Medications What How Much When Why Instructions Next Dose New cephalexin (cephalexin 500 mg oral capsule) 1 Capsules Oral (given by mouth) 4 times a day Abscess Duration: 7 Days Printed Prescription Unchanged albuterol (albuterol 90 mcg/ inh aerosol [...] (traZODone 50 mg oral tablet) Education Materials Skin Abscess A skin abscess is an infected area on or under your skin that contains a collection of pus and other material. An abscess may also be called a furuncle, carbuncle, or boil. An abscess can occur in oron almost any part of your body. Some abscesses break open (rupture) on their own. Most continue to get worse unless they are treated. The infection can spread deeper into the body and eventually into your blood, which can make you feel ill. Treatment usually involves draining the abscess. What are the causes? An abscess occurs when germs, like bacteria, pass through your skin and cause an infection. This may be caused by: ? A scrape or cut on your skin. ? A puncture wound through your skin, including a needle injection or insect bite. ? Blocked oil or sweat glands. ? Blocked and infected hair follicles. ? A cyst that forms beneath your skin (sebaceous cyst) and becomes infected. What increases the risk? This condition is more likely to develop in people who: ? Have a weak body defense system (immune system). ? Have diabetes. ? Have dry and irritated skin. ? Get frequent injections or use illegal IV drugs. ? Have a foreign body in a wound, such as a splinter. ? Have problems with their lymph system or veins. What are the signs or symptoms? Symptoms of this condition include: ? A painful, firm bump under the skin. ? A bump with pus at the top. This may break through the skin and drain. Other symptoms include: ? Redness surrounding the abscess site. ? Warmth. ? Swelling of the lymph nodes (glands) near the abscess. ? Tenderness. ? A sore on the skin. How is this diagnosed? This condition may be diagnosed based on: ? A physical exam. ? Your medical history. ? A sample of pus. This may be used to find out what is causing the infection. ? Blood tests. ? Imaging tests, such as an ultrasound, CT scan, or MRI. How is this treated? A small abscess that drains on its own may not need treatment. Treatment for larger abscesses may include: ? Moist heat or heat pack applied to the area several times a day. ? A procedure to drain the abscess (incision and drainage). ? Antibiotic medicines. For a severe abscess, you may first get antibiotics through an IV and then change to antibiotics by mouth. Follow these instructions at home: Medicines ? Take xtow-rml-mwcicxo and prescription medicines only as told by your health care provider. ? If you were prescribed an antibiotic medicine, take it as told by your health care provider. Do notstop taking the antibiotic even if you start to feel better. Abscess care ? If you have an abscess that has not drained, apply heat to the affected area. Use the heat source that your health care provider recommends, such as a moist heat pack or a heating pad. ? Place a towel between your skin and the heat source. ? Leave the heat on for 20???30 minutes. ? Remove the heat if your skin turns bright red. This is especially important if you are unable to feel pain, heat, or cold. You may have a greater risk of getting burned. ? Follow instructions from your health care provider about how to take care of your abscess. Make sure you: ? Cover the abscess with a bandage (dressing). ? Change your dressing or gauze as told by your health care provider. ? Wash your hands with soap and water before you change the dressing or gauze. If soap and water are not available, use hand rigging loft repairer. ? Check your abscess every day for signs of a worsening infection. Check for: ? More redness, swelling, or pain. ? More fluid or blood. ? Warmth. ? More pus or a bad smell. General instructions ? To avoid spreading the infection: ? Do not share personal care items, towels, or hot tubs with others. ? Avoid making skin contact with other people. ? Keep all follow-up visits as told by your health care provider. This is important. Contact a health care provider if you have: ? More redness, swelling, or pain around your abscess. ? More fluid or blood coming from your abscess. ? Warm skin around your abscess. ? More pus or a bad smell coming from your abscess. ? A fever. ? Muscle aches. ? Chills or a general ill feeling. Get help right away if you: ? Have severe pain. ? See red streaks on your skin spreading away from the abscess. Summary ? A skin abscess is an infected area on or under your skin that contains a collection of pus and other material. ? A small abscess that drains on its own may not need treatment. ? Treatment for larger abscesses may include having a procedure to drain the abscess and taking an antibiotic. This information is not intended to replace advice given to you by your health care provider. Make sure you discuss any questions you have with your health care provider. Document Revised: 06/15/2019 Document Reviewed: 04/07/2018 [employer] Patient Education ?? 2021 [employer] Patient/Medical Staff Assistant Signature Patient Name:ADAIR KONG I have received this information and my questions have been answered. Patient/Medical Staff Assistant Name: Patient/Medical Staff Assistant Signature: Relationship to Patient: Witness Name/Signature: Date: Electronically Signed on: 03/31/2022 10:15 ESTSigned by:Taylor Ghosh MD: PERFORM Event Display: ED Discharge Information Authored Date: [id number] ADAIR KONG :1965 Age:57 years Sex:Female Visit Date:03/31/2022 Primary Care Physician: Nya Hernandez INFORMATION TECHNOLOGY DATA ANALYST Discharge Instructions We would like to thank you for allowing us to assist you with your healthcare needs. The following includes patient education materials and information regarding your injury/illness. Diagnosis from Today's Visit Abscess Discharge Vitals Temperature??(Temporal Artery) 96.4 ??F (35.8 ??C) Heart Rate??(Peripheral) 71 Respiratory Rate?? 16 Blood Pressure?? 120/69?? Height?? 62.99 in (160.000 cm) Weight??(Estimated) 198.03 lb (89.81 kg) Allergies acetaminophen-hydrocodone??(Skin rash) doxycycline??(Skin rash) sulfADIAZINE??(Skin rash) What to Do Next Instructions from Your Care Team Keflex (cephalexin) 500 mg 4 times a day for 7 days.?? If you worsen return to the emergency department or see your primary care provider. You may take up to 1000 mg??of Tylenol??(acetaminophen) every 6 hours as needed??for pain or discomfort for maximum 4000 mg in 24 hours or you may permanently hurt your liver. You Need to Schedule the Following Appointments Follow Up with??Follow up with primary care provider When:??Within 1 to 2 weeks You were treated today on an emergency basis; it may be person to contact your primary care provider to notify them of your visit today. You may have been referred to your regular doctor or a specialist, please follow up as instructed. If your condition worsens or you can't get in to see the doctor, contact the Emergency Department. Medications What How Much When Why Instructions Next Dose New cephalexin (cephalexin 500 mg oral capsule) 1 Capsules Oral (given by mouth) 4 times a day Abscess Duration: 7 Days Printed Prescription Unchanged albuterol (albuterol 90 mcg/ inh aerosol [...] (traZODone 50 mg oral tablet) Education [employer] Skin Abscess A skin abscess is an infected area on or under your skin that contains a collection of pus and other material. An abscess may also be called a furuncle, carbuncle, or boil. An abscess can occur in oron almost any part of your body. Some abscesses break open (rupture) on their own. Most continue to get worse unless they are treated. The infection can spread deeper into the body and eventually into your blood, which can make you feel ill. Treatment usually involves draining the abscess. What are the causes? An abscess occurs when germs, like bacteria, pass through your skin and cause an infection. This may be caused by: ? A scrape or cut on your skin. ? A puncture wound through your skin, including a needle injection or insect bite. ? Blocked oil or sweat glands. ? Blocked and infected hair follicles. ? A cyst that forms beneath your skin (sebaceous cyst) and becomes infected. What increases the risk? This condition is more likely to develop in people who: ? Have a weak body defense system (immune system). ? Have diabetes. ? Have dry and irritated skin. ? Get frequent injections or use illegal IV drugs. ? Have a foreign body in a wound, such as a splinter. ? Have problems with their lymph system or veins. What are the signs or symptoms? Symptoms of this condition include: ? A painful, firm bump under the skin. ? A bump with pus at the top. This may break through the skin and drain. Other symptoms include: ? Redness surrounding the abscess site. ? Warmth. ? Swelling of the lymph nodes (glands) near the abscess. ? Tenderness. ? A sore on the skin. How is this diagnosed? This condition may be diagnosed based on: ? A physical exam. ? Your medical history. ? A sample of pus. This may be used to find out what is causing the infection. ? Blood tests. ? Imaging tests, such as an ultrasound, CT scan, or MRI. How is this treated? A small abscess that drains on its own may not need treatment. Treatment for larger abscesses may include: ? Moist heat or heat pack applied to the area several times a day. ? A procedure to drain the abscess (incision and drainage). ? Antibiotic medicines. For a severe abscess, you may first get antibiotics through an IV and then change to antibiotics by mouth. Follow these instructions at home: Medicines ? Take gvzr-wmy-afnihbi and prescription medicines only as told by your health care provider. ? If you were prescribed an antibiotic medicine, take it as told by your health care provider. Do notstop taking the antibiotic even if you start to feel better. Abscess care ? If you have an abscess that has not drained, apply heat to the affected area. Use the heat source that your health care provider recommends, such as a moist heat pack or a heating pad. ? Place a towel between your skin and the heat source. ? Leave the heat on for 20???30 minutes. ? Remove the heat if your skin turns bright red. This is especially important if you are unable to feel pain, heat, or cold. You may have a greater risk of getting burned. ? Follow instructions from your health care provider about how to take care of your abscess. Make sure you: ? Cover the abscess with a bandage (dressing). ? Change your dressing or gauze as told by your health care provider. ? Wash your hands with soap and water before you change the dressing or gauze. If soap and water are not available, use hand rigging loft repairer. ? Check your abscess every day for signs of a worsening infection. Check for: ? More redness, swelling, or pain. ? More fluid or blood. ? Warmth. ? More pus or a bad smell. General instructions ? To avoid spreading the infection: ? Do not share personal care items, towels, or hot tubs with others. ? Avoid making skin contact with other people. ? Keep all follow-up visits as told by your health care provider. This is important. Contact a health care provider if you have: ? More redness, swelling, or pain around your abscess. ? More fluid or blood coming from your abscess. ? Warm skin around your abscess. ? More pus or a bad smell coming from your abscess. ? A fever. ? Muscle aches. ? Chills or a general ill feeling. Get help right away if you: ? Have severe pain. ? See red streaks on your skin spreading away from the abscess. Summary ? A skin abscess is an infected area on or under your skin that contains a collection of pus and other material. ? A small abscess that drains on its own may not need treatment. ? Treatment for larger abscesses may include having a procedure to drain the abscess and taking an antibiotic. This information is not intended to replace advice given to you by your health care provider. Make sure you discuss any questions you have with your health care provider. Document Revised: 06/15/2019 Document Reviewed: 04/07/2018 [employer] Patient Education ?? 2021 [employer] Patient/Medical Staff Assistant Signature Patient Name:DILAN ADAIR A I have received this information and my questions have been answered. Patient/Medical Staff Assistant Name: Patient/Medical Staff Assistant Signature: Relationship to Patient: Witness Name/Signature: Date: Electronically Signed on: 03/31/2022 10:11 ESTSigned by:[facility] Emergency department Note * Shari Duncan M: PERFORM Event Display: ED Notes Authored Date: [id number] Patient Care team information Personnel Name: Nya Hernandez NP Address: Address: [address] [place] [id number] [place]
--- OUTSIDE RECORDS SUMMARY | 2022-07-08 12:43 | XMS_ITS | Continuity of Care Document ---
Author Name Unknown Organization [facility] Address [address] [place] [address] Care Team Providers Care Litigation Associate Name Role Phone Nya Hernandez Primary Care Physician [phone] Encounter [facility] Date(s): 01/07/22 - 01/07/[address] [address] Discharge Disposition: Home or Self Care Attending Physician: Nya Hernandez SENIOR QUALITATIVE RESEARCHER Admitting Physician: Nya Hernandez SENIOR QUALITATIVE RESEARCHER Referring Physician: Nya Hernandez SENIOR QUALITATIVE RESEARCHER Allergies, Adverse Reactions, Alerts Substance Reaction Severity Status doxycycline Skin rash Unknown Active acetaminophen-hydrocodone Skin rash Unknown Ac tive sulfADIAZINE Skin rash Unknown Active Assessment and Plan Future Appointments Immunizations Given and Recorded Vaccine Date Status [...] Care team information Personnel Name: Nya Hernandez SENIOR QUALITATIVE RESEARCHER Address: Address: [address] [place] [address]
--- OUTSIDE RECORDS SUMMARY | 2022-07-08 12:43 | XMS_ITS | Continuity of Care Document ---
Author Name Unknown Organization [facility] Address [address] [place] [address] Care Team Providers Care Radon Inspector Name Role Phone EdisonvenuNya Edvin Primary Care Physician [phone] Encounter [facility] Date(s): 12/26/21 - 12/26/[address] [address] Discharge Disposition: Home or Self Care Attending Physician: Brenda Kaye Admitting Physician: Brenda Kaye Referring Physician: Brenda Kaye Allergies, Adverse Reactions, Alerts Substance Reaction Severity [...] Care team information Personnel Name: Nya Hernandez DIRECTOR OF LABOR RELATIONS Address: Address: [address] [place] [id number] [place]
--- OUTSIDE RECORDS SUMMARY | 2022-07-08 12:44 | XMS_ITS | Continuity of Care Document ---
Author Name Unknown Organization [facility] Address [address] [place] [address] Care Team Providers Care Network Development Coordinator Name Role Phone Nya Hernandez Primary Care Physician [phone] Encounter [facility] Date(s): 05/04/22 - 05/04/[address] [address] Discharge Disposition: Home or Self Care Attending Physician: Nya Hernandez COMPOSITE TECHNICIAN Admitting Physician: Nya Hernandez COMPOSITE TECHNICIAN Referring Physician: Nya Hernandez COMPOSITE TECHNICIAN Allergies, Adverse Reactions, Alerts Substance Reaction Severity [...] a month ago Patient Care team information Care Team Personnel Name: Nya Hernandez COMPOSITE TECHNICIAN Position: PowerChart View Only Member Role: Primary Care Physician Address: Address: [address] [place] [id number]- Care Team Related Persons Name: TANG KONG Address: Home [address] [id number]
--- OUTSIDE RECORDS SUMMARY | 2022-07-08 12:44 | XMS_ITS | Continuity of Care Document ---
Author Name Unknown Organization [facility] Address [address] [place] [address] Care Team Providers Care Aircraft Worker Name Role Phone Nya Hernandez Primary Care Physician [phone] Encounter [facility] Date(s): 11/13/21 - 12/13/[address] [address] Discharge Disposition: Home or Self Care Attending Physician: Nya Hernandez MEDICAL POLICY SPECIALIST Admitting Physician: Nya Hernandez MEDICAL POLICY SPECIALIST Allergies, Adverse Reactions, Alerts Substance Reaction Severity [...] Care team information Personnel Name: Nya Hernandez MEDICAL POLICY SPECIALIST Address: Address: [address] [place] [address] [place]
[2022-07-08 22:02] LABS: Hemoglobin A1C 5.7 % (<5.7)
[2022-07-08 22:18] LABS: ALT 30 U/L (14-59); AST 20 U/L (15-37); Albumin 3.5 g/dL (3.4-5.0); Alkaline Phosphatase 116 U/L (46-116); Anion Gap 7.9 mmol/L (3-11); BUN 20 mg/dL (7-18); Bilirubin, Total 0.2 mg/dL (0.2-1.0); CO2 28.1 mmol/L (21.0-32.0); CREATININE 0.7 mg/dL (0.55-1.02); Calcium 8.9 mg/dL (8.5-10.1); Chloride 107 mmol/L (98-107); Estimated GFR 99.57 (mL/min/1.73m2); Glucose 99 mg/dL (74-106); Potassium 3.8 mmol/L (3.5-5.1); Sodium 143 mmol/L (136-145); TSH 1.39 uIU/mL (0.36-3.74); Total Protein 7.3 g/dL (6.4-8.2)
== END 2022-07-08 12:40 | disposition home or self-care (01) ==
LOC: NCHCN 12:39
PROVIDERS: PCP Nurse Practitioner Family; Visit Provider Nurse Practitioner Family
DX: I10 Essential (primary) hypertension (principal); R73.03 Prediabetes; E03.9 Hypothyroidism, unspecified
CPT/HCPCS: 80053; 83036; 84443

== ENCOUNTER 2023-03-29 21:48 | Outpatient (REF) | payer MEDICARE, MEDICAID, SELFPAY ==
[2023-03-29 21:06] LABS: ALT 30 U/L (14-59); AST 21 U/L (15-37); Albumin 3.7 g/dL (3.4-5.0); Alkaline Phosphatase 113 U/L (46-116); Anion Gap 5.1 mmol/L (3-11); BUN 27 mg/dL (7-18); Bilirubin, Total 0.8 mg/dL (0.2-1.0); CO2 31.9 mmol/L (21.0-32.0); CREATININE 0.9 mg/dL (0.55-1.02); Calcium 9.4 mg/dL (8.5-10.1); Chloride 102 mmol/L (98-107); Estimated GFR 73.19 (mL/min/1.73m2); Glucose 112 mg/dL (74-106); Potassium 4.3 mmol/L (3.5-5.1); Sodium 139 mmol/L (136-145); Total Protein 7.7 g/dL (6.4-8.2)
--- OUTSIDE RECORDS SUMMARY | 2023-03-29 21:51 | XMS_ITS | Continuity of Care Document ---
Author Name Unknown Organization [facility] Address [address] [place] [address] Care Team Providers Care Breast Puller Name Role Phone David Nya Edvin Primary Care Physician Encounter [facility] Date(s): 11/08/22 - 11/08/[address] [address] Discharge Disposition: Home or Self Care Attending Physician: Adriano Angulo MD Admitting Physician: Adriano Angulo MD Allergies, Adverse Reactions, Alerts Substance Reaction Severity Status doxycycline Skin rash Unknown Active acetaminophen-hydrocodone Skin rash Unknown Ac tive sulfADIAZINE Skin rash Unknown Active Assessment and Plan Future Appointments Functional Status 11/08/22 Recent Travel History No recent travel Other exposure to Infectious Disease Non e [...] 0 Refill(s) Start Date: 10/29/21 Status: Ordered ferrous fumarate 300 mg oral tablet 300 mg = 1 tab, Oral, Daily, X 90 days, # 90 tab, 0 Refill(s), 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, Pharmacy: [id number], 160, cm, 11/08/22 6:19:00 EDT, Height/Length Dosing, 96.4, kg, 11/08/22 6:19:00EDT, Weight Dosing Start Date: 11/08/22 Stop Date: 02/06/23 Status: Ordered furosemide 20 mg oral tablet 0 Refill(s) Start Date: 10/29/21 Status: Ordered gabapentin 300 mg oral capsule 0 Refill(s) Start Date: 10/29/21 Status: Ordered levothyroxine 50 mcg (0.05 mg) oral tablet 0 Refill(s) Start Date: 10/29/21 Status: Ordered losartan 50 mg oral tablet 0 Refill(s) Start Date: 10/29/21 Status: Ordered methocarbamol 500 mg oral tablet 20 EA, TAKE ONE TABLET BY MOUTH FOUR TIMES A DAY NEEDED, 0 Refill(s) Start Date: 08/20/22 Status: Ordered nitroglycerin 0.4 mg sublingual tablet 0 Refill(s) Start Date: 10/29/21 Status: Ordered pantoprazole 40 mg oral delayed release tablet 0 Refill(s) Start Date: 10/29/21 Status: Ordered polyethylene glycol 3350 Oral, 17 Unknown, 1 Refill(s), Take 17 g by mouth daily., 0 Refill(s) Start Date: 08/20/22 Status: Ordered traZODone 50 mg oral tablet 0 Refill(s) Start Date: 10/29/21 Status: Ordered Trelegy Ellipta 100 mcg-62.5 mcg-25 mcg/inh inhalation powder 0 Refill(s) Start Date: 10/29/21 Status: Ordered Problem List Condition Confirmation Course Effective Dates Status H ealth Status Informant Acute non-ST segment elevation myocardial infarction 1 Confirmed 06/27/20 Active Acute pulmonary embolism 2 Confirmed 06/27/20 Active Acute renal failure with oliguria Confirmed 06/27/20 Active Amputated above knee Confirmed 06/27/20 Active Bilateral pleural effusion Confirmed 06/27/20 Active Chronic obstructive lung disease 3 Confirmed 07/29/21 Active Coronary arteriosclerosis Confirmed 07/29/21 Active Hernia of anterior abdominal wall Confirmed 06/01/22 Active Hypertensive disorder Confirmed 07/29/21 Active Hypothyroidism Confirmed 07/29/21 Active Myocardial infarction Confirmed 06/01/21 Active Peripheral arterial disease Confirmed 07/29/21 Active Salivary gland neoplasm Confirmed Active Ulcer of duodenum Confirmed 06/27/20 Active Viscus structure finding Confirmed 05/10/20 Active 1From 10-17-2020 visit: Asymptomatic on current cardiac regimen. Continue with aspirin. 2Fsaint alphonsus eagle 10-17-2020 visit: Continue Lovenox. Recommendations continue anticoagulation for at least 3 months. 3Fsaint alphonsus eagle 10-17-2020 visit: Continue with current inhalers. Procedures Procedure Date Related Diagnosis Body Site Status Endoscopic retrograde cholangiopancreatography (ERCP); with sphincterotomy/papillotomy 07/25/22 Compl eted Repair of anterior abdominal hernia(s) (ie, epigastric, incisional, ventral, umbilical, spigelian), any approach (ie, open, laparoscopic, robotic), initial, including implantation of mesh or other prosthesis when performed, total length of defect(s); grea 06/01/22 Completed Closure of vesicouterine fis nicholas; with hysterectomy Completed Results Laboratory List Name Date C-Reactive Protein High Sensitivity (CRP HS) 11/08/22 Iron Level 11/08/22 Reticulocyte Count Automated 11/08/22 .Morphology ([facility]) 11/08/22 CBC w/ Diff 11/08/22 Comprehensive Metabolic Panel (CMP) D-Dimer 11/08/22 Lipase Level 11/08/22 Troponin-I 11/08/22 Automated Diff 11/08/22 Most recent to oldest [Reference Range]: 1 WBC [5.0-10.0 x10^3/mcL] 10.4 x10^3/mcL *HI* (11/08/22 6:25 AM) RBC [4.1-5.3 x10^6/mcL] 4.5 x10^6/mcL (11/08/22 6:25 AM) Neutro Auto [40.0-75.0 %] 64.7 % (11/08/22 6:25 AM) Lymph Auto [20.0-50.0 %] 19.8 % *LOW* (11/08/22 6:25 AM) Cowley Auto [2.0-15.0 %] 8.6 % (11/08/22 6:25 AM) Basophil Auto [0.0-1.0 %] 1.1 % *HI* (11/08/22 6:25 AM) BUN [7-18 mg/dL] 27 mg/dL *HI* (11/08/22 6:25 AM) Glucose Level [74-106 mg/dL] 118 mg/dL *HI* (11/08/22 6:25 AM) Potassium Level [3.5-5.1 mmol/L] 4.0 mmo l/L (11/08/22 6:25 AM) MCV [80.0-96.0 fL] 65.9 fL *LOW* (11/08/22 6:25 AM) RBC Morph Abnormal (11/08/22:25 AM) AST [15-37 unit/L] 14 unit/L *LOW* (11/08/22 6:25 AM) ALT [14-59 unit/L] 26 unit/L (11/08/22 6:25 AM) MCHC [31.0-35.0 g/dL] 26.7 g/dL *LOW* (11/08/22 6:25 AM) Troponin-I [0.0-51.4 pg/mL] 9.5 pg/mL (11/08/22 6:25 AM) Sodium Level [136-145 mmol/L] 137 mmol/L (11/08/22 6:25 AM) Hct [37.0-47.0 %] 29.6 % *LOW* (11/08/22 6:25 AM) Microcyte Moderate (11/08/22:25 AM) Lipase Level [16-77 unit/L] 43 unit/L 1 (11/08/22 6:25 AM) Hypochromia Moderate (11/08/22 6:25 AM) Calcium Level [8.5-10.1 mg/dL] 9.0 mg/dL (11/08/22 6:25 AM) Albumin Level [3.4-5.0 g/dL] 3.3 g/dL *LOW* (11/08/22 6:25 AM) Protein Total [6.4-8.2 g/dL] 7.1 g/dL (11/08/22 6:25 AM) Poik Small (11/08/22 6:25 AM) MCH [26.0-32.0 pg] 17.6 pg *LOW* (11/08/22 6:25 AM) Neutro Absolute 6.7 x10^3/mcL *NA* (11/08/22 6:25 AM) Bilirubin Total [0.2-1.0 mg/dL] 0.4 mg/d L (11/08/22 6:25 AM) Hgb [12.0-16.0 g/dL] 7.9 g/dL *LOW* (11/08/22 6:25 AM) Alk Phos [46-146 unit/L] 120 unit/L (11/08/22 6:25 AM) Polychrom Small (11/08/22 6:25 AM) Platelets [130-450 x10^3/mcL] 937 x10^3/ mcL 2 *CRIT* (11/08/22 6:25 AM) CO2 [21-32 mmol/L] 29 mmol/L (11/08/22 6:25 AM) Reticulocyte % [0.5-2.4 %] 2.0 % (11/08/22 6:30 AM) Iron [50-170 mcg/dL] 12 mcg/dL *LOW* (11/08/22 6:30 AM) eGFR Non-AA [>=60] 74 (11/08/22 6:25 AM) eGFR AA [>=60] 74 (11/08/22 6:25 AM) Chloride Level [98-107 mmol/L] 101 mmol/ L (11/08/22 6:25 AM) RDW-CV [11.5-14.5 %] 22.6 % *HI* (11/08/22 6:25 AM) Ovalocytes Small (11/08/22 6:25 AM) Imm Gran Auto [0.0-0.9 %] 0.7 % (11/08/22 6:25 AM) CRP High Sens [0.00-3.00 mg/L] 20.41 mg/ L 3 *HI* (11/08/22 6:30 AM) Slide Review Morph Only (11/08/22 6:25 AM) Anisocyte Large (11/08/22:25 AM) Creatinine Level [0.55-1.02 mg/dL] 0.90 mg/dL (11/08/22 6:25 AM) Plt Estimation [Adequate] Increased *ABN* (11/08/22 6:25 AM) D Dimer, (Quant.) [0.00-0.50 mg/L] <0.19 mg/L 4 (11/08/22 6:25 AM) Eos, Auto [1.0-6.0 %] 5.1 % (11/08/22 6:25 AM) 1Interpretive Data: Effective 12/25/21, [facility] has switched to a revised Lipase test.Note new ReferenceRange. 2Result Comment: Called to and verbally verified by Larissa Hewitt RN at 11/08/2022 06:39:06 EDT EMB. Result confirmed by repeat analysis. 3Interpretive Data: Risk Level Age/Sex Range Units Less Risk All <1.0 mg/L Average Risk All 1.0 - 3.0 mg/L High Risk All >3.0 mg/L *Indeterminate All >10.0 mg/L *May be an indication of inflammation or infection. 4Interpretive Data: Exclusion of PE: Effective November 25, 2011 a new D-Dimer assay [INNOVANCE] is being implemented, this test has a new reference range <0.50 mg/L FEU. This assay was evaluated in a multi-center study to validate the exclusion of PE using fresh specimens collected from 701 consecutive patients presenting in the ED with suspected PE. Study patients were evaluated using the Wells' rules to estimate high, moderate or low probability of PE, a D-Dimer result of <0.50 mg/L FEU was considered negative and a D-Dimer result >/= 0.50 was considered positive for PE. Vital Signs Most recent to oldest [Reference Range]: 1 2 3 Temperature Temporal Artery [36-38 Deg C] 36.1 Deg C (11/08/22 6:10 AM) Peripheral Pulse Rate [60-100 bpm] 71 bpm (11/08/22 9:38 AM) 80 bpm (11/08/22 7:48 AM) 97 bpm (11/08/22 6:10 AM) Heart Rate Monitored [60-100 bpm] 71 bpm (11/08/22 9:38 AM) 79 bpm (11/08/22 7:48 AM) Respiratory Rate [12-24 br/min] 16 br/min (11/08/22 9:38 AM) 18 br/min (11/08/22 7:48 AM) 16 br/min (11/08/22 6:10 AM) Blood Pressure [90-140/60-90 mmHg] 132/56mmHg (11/08/22 9:38 AM) 154/68mmHg *HI* (11/08/22 7:48 AM) 125/54mmHg (11/08/22 6:10 AM) Weight 96.40 kg (11/08/22 6:10 AM) Weight Dosing 96.40 kg (11/08/22 6:19 AM) Height 160.000 cm (11/08/22 6:10 AM) Height/Length Dosing 160.000 cm (11/08/22 6:19 AM) Body Mass Index 38.000 kg/m2 (11/08/22 6:10 AM) Social History Social History Type Response Tobacco Former tobacco user Tobacco Use:. 1 Sex Female 1quit over a month ago Hospital Discharge Instructions Patient Education 11/08/2022 08:28:20 Iron Deficiency Anemia, Adult, Jtza-md-Lrvn Iron Deficiency Anemia, Adult Iron deficiency anemia is when you do not have enough red blood cells or hemoglobin in your blood. This happens because you have too little iron in your body. Hemoglobin carries oxygen to parts of the body. Anemia can cause your body to not get enough oxygen. What are the causes? Not eating enough foods that have iron in them. ??? The body not being able to take in iron well. ??? Needing more iron due to or heavy menstrual periods, for females. ??? Cancer. ??? Bleeding in the bowels. ??? Many blood draws. What increases the risk? Being . ??? Being a teenage girl going through a growth spurt. What are the signs or symptoms? Pale skin, lips, and nails. ??? Weakness, dizziness, and getting tired easily. ??? Headache. ??? Feeling like you cannot breathe well when moving (shortness of breath). ??? Cold hands and feet. ??? Fast heartbeat or a heartbeat that is not regular. ??? Feeling grouchy (irritable) or breathing fast. These are more common in very bad anemia. Mild anemia may not cause any symptoms. How is this treated? This condition is treated by finding out why you do not have enough iron and then getting more iron. It may include: ??? Adding foods to your diet that have a lot of iron. ??? Taking iron pills (supplements). If you are or , you may need to take extra iron. Your diet often does not provide the amount of iron that you need. ??? Getting more vitamin C in your diet. Vitamin C helps your body take in iron. You may need to take iron pills with a glass of orange juice or vitamin C pills. ??? Medicines to make heavy menstrual periods maintenance mechanic engine. ??? Surgery. You may need blood tests to see if treatment is working. If the treatment does not seem to be working, you may need more tests. Follow these instructions at home: Medicines ??? Take kprq-zwy-mwxxxff and prescription medicines only as told by your doctor. This includes iron pills and vitamins. ??? Take iron pills when your stomach is empty. If you cannot handle this, take them with food. ??? Do not drink milk or take antacids at the same time as your iron pills. ??? Iron pills may turn your poop (stool)black. ??? If you cannot handle taking iron pills by mouth, ask your doctor about getting iron through: ??? An IV tube. ??? A shot (injection) into a muscle. Eating and drinking ??? Talk with your doctor before changing the foods you eat. He or she may tell you to eat foods that have a lot of iron, such as: ??? Liver. ??? Low-fat (lean) beef. ??? Breads and cereals that have iron added to them. ??? Eggs. ??? Dried fruit. ??? Dark green, leafy vegetables. ??? Eat fresh fruits and vegetables that are high in vitamin C. They help your body use iron. Foodswith a lot of vitamin C include: ??? Oranges. ??? Peppers. ??? Tomatoes. ??? Mangoes. ??? Drink enough fluid to keep your pee (urine) pale yellow. Managing constipation If you are taking iron pills, they may cause trouble pooping (constipation). To prevent or treat trouble pooping, you may need to: ??? Take yqnt-fdc-uvvjtlm or prescription medicines. ??? Eat foods that are high in fiber. These include beans, whole grains, and fresh fruits and vegetables. ??? Limit foods that are high in fat and sugar. These include fried or sweet foods. General instructions ??? Return to your normal activities as told by your doctor. Ask your doctor what activities are safe for you. ??? Keep yourself clean, and keep things clean around you. ??? Keep all follow-up visits as told by your doctor. This is important. Contact a doctor if: ??? You feel like you may vomit (nauseous), or you vomit. ??? You feel weak. ??? You are sweating for no reason. ??? You have trouble pooping, such as: ??? Pooping less than 3 times a week. ??? Straining to poop. ??? Having poop that is hard, dry, or larger than normal. ??? Feeling full or bloated. ??? Pain in the lower belly. ??? Not feeling better after pooping. Get help right away if: ??? You pass out (faint). ??? You have chest pain. ??? You have trouble breathing that: ??? Is very bad. ??? Gets worse with physical activity. ??? You have a fast heartbeat, or a heartbeat that does not feel regular. ??? You get light-headed when getting up from sitting or lying down. These symptoms may be an emergency. Do not wait to see if the symptoms will go away. Get medical help right away. Call your local emergency services (911 in the [place] Do not drive yourself to the hospital. Summary ??? Iron deficiency anemia is when you have too little iron in your body. ??? This condition is treated by finding out why you do not have enough iron in your body and then getting more iron. ??? Take lidx-kut-anhwguw and prescription medicines only as told by your doctor. ??? Eat fresh fruits and vegetables that are high in vitamin C. ??? Get help right away if you cannot breathe well. This information is not intended to replace advice given to you by your health care provider. Make sure you discuss any questions you have with your health care provider. Document Revised: 10/31/2019 Document Reviewed: 10/31/2019 [employer] Patient Education ?? 2021 [email or web address] 11/08/2022 08:28:19 Iron Deficiency Anemia, Adult Iron Deficiency Anemia, Adult Iron deficiency anemia is a condition in which the concentration of red blood cells or hemoglobin in the blood is below normal because of too little iron. Hemoglobin is a substance in red blood cellsthat carries oxygen to the body's tissues. When the concentration of red blood cells or hemoglobin is too low, not enough oxygen reaches these tissues. Iron deficiency anemia is usually long-lasting, and it develops over time. It may or may not cause symptoms. It is a common type of anemia. What are the causes? This condition may be caused by: ??? Not enough iron in the diet. ??? Abnormal absorption in the gut. ??? Increased need for iron because of or heavy menstrual periods, for females. ??? Cancers of the gastrointestinal system, such as colon cancer. ??? Blood loss caused by bleeding in the intestine. This may be from a gastrointestinal condition like Crohn's disease. ??? Frequent blood draws, such as from blood donation. What increases the risk? The following factors may make you more likely to develop this condition: ??? Being . ??? Being a teenage girl going through a growth spurt. What are the signs or symptoms? Symptoms of this condition may include: ??? Pale skin, lips, and nail beds. ??? Weakness, dizziness, and getting tired easily. ??? Headache. ??? Shortness of breath when moving or exercising. ??? Cold hands and feet. ??? Fast or irregular heartbeat. ??? Irritability or rapid breathing. These are more common in severe anemia. Mild anemia may not cause any symptoms. How is this diagnosed? This condition is diagnosed based on: ??? Your medical history. ??? A physical exam. ??? Blood tests. You may have additional tests to find the underlying cause of your anemia, such as: ??? Testing for blood in the stool (fecal occult blood test). ??? A procedure to see inside your colon and rectum (colonoscopy). ??? A procedure to see inside your esophagus and stomach (endoscopy). ??? A test in which cells are removed from bone marrow (bone marrow aspiration) or fluid is removedfrom the bone marrow to be examined. This is rarely needed. How is this treated? This condition is treated by correcting the cause of your iron deficiency. Treatment may involve: ??? Adding iron-rich foods to your diet. ??? Taking iron supplements. If you are or , you may need to take extra iron because your normal diet usually does not provide the amount of iron that you need. ??? Increasing vitamin C intake. Vitamin C helps your body absorb iron. Your health care provider may recommend that you take iron supplements along with a glass of orange juice or a vitamin C supplement. ??? Medicines to make heavy menstrual flow maintenance mechanic engine. ??? Surgery. You may need repeat blood tests to determine whether treatment is working. If the treatment does not seem to be working, you may need more tests. Follow these instructions at home: Medicines ??? Take ldxc-fdy-mqbizzx and prescription medicines only as told by your health care provider. This includes iron supplements and vitamins. ??? For the best iron absorption, you should take iron supplements when your stomach is empty. If you cannot tolerate them on an empty stomach, you may need to take them with food. ??? Do not drink milk or take antacids at the same time as your iron supplements. Milk and antacidsmay interfere with iron absorption. ??? Iron supplements may turn stool (feces) a darker color and it may appear black. ??? If you cannot tolerate taking iron supplements by mouth, talk with your health care provider about taking them through an IV or through an injection into a muscle. Eating and drinking ??? Talk with your health care provider before changing your diet. He or she may recommend that youeat foods that contain a lot of iron, such as: ??? Liver. ??? Low-fat (lean) beef. ??? Breads and cereals that have iron added to them (are fortified). ??? Eggs. ??? Dried fruit. ??? Dark green, leafy vegetables. ??? To help your body use the iron from iron-rich foods, eat those foods at the same time as fresh fruits and vegetables that are high in vitamin C. Foods that are high in vitamin C include: ??? Oranges. ??? Peppers. ??? Tomatoes. ??? Mangoes. ??? Drink enough fluid to keep your urine pale yellow. Managing constipation If you are taking an iron supplement, it may cause constipation. To prevent or treat constipation, you may need to: ??? Take cppo-yyf-wqvoehj or prescription medicines. ??? Eat foods that are high in fiber, such as beans, whole grains, and fresh fruits and vegetables. ??? Limit foods that are high in fat and processed sugars, such as fried or sweet foods. General instructions ??? Return to your normal activities as told by your health care provider. Ask your health care provider what activities are safe for you. ??? Practice good hygiene. Anemia can make you more prone to illness and infection. ??? Keep all follow-up visits as told by your health care provider. This is important. Contact a health care provider if you: ??? Feel nauseous or you vomit. ??? Feel weak. ??? Have unexplained sweating. ??? Develop symptoms of constipation, such as: ??? Having fewer than three bowel movements a week. ??? Straining to have a bowel movement. ??? Having stools that are hard, dry, or larger than normal. ??? Feeling full or bloated. ??? Pain in the lower abdomen. ??? Not feeling relief after having a bowel movement. Get help right away if you: ??? Faint. If this happens, do not drive yourself to the hospital. ??? Have chest pain. ??? Have shortness of breath that: ??? Is severe. ??? Gets worse with physical activity. ??? Have an irregular or rapid heartbeat. ??? Become light-headed when getting up from a sitting or lying down position. These symptoms may represent a serious problem that is an emergency. Do not wait to see if the symptoms will go away. Get medical help right away. Call your local emergency services (911 in the [place] Do not drive yourself to the hospital. Summary ??? Iron deficiency anemia is a condition in which the concentration of red blood cells or hemoglobin in the blood is below normal because of too little iron. ??? This condition is treated by correcting the cause of your iron deficiency. ??? Take kiga-wqe-sgmlzzl and prescription medicines only as told by your health care provider. This includes iron supplements and vitamins. ??? To help your body use the iron from iron-rich foods, eat those foods at the same time as fresh fruits and vegetables that are high in vitamin C. ??? Get help right away if you have shortness of breath that gets worse with physical activity. This information is not intended to replace advice given to you by your health care provider. Make sure you discuss any questions you have with your health care provider. Document Revised: 10/31/2019 Document Reviewed: 10/31/2019 [employer] Patient Education ?? 2021 [employer]. 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 Recent gallstone. Took one nitro with some relief History Of Present Illness: Addition to HPI.?? Pain was relieved by nitro.?? Quality of the pain is sharp. ??Is aggravated by lying down. ??Relieved by sitting up. Review of Systems: No melena. Physical Exam Vitals & Measurements T:??36.1?C ??(Temporal Artery)?? HR:??80??(Peripheral)?? HR:??79??(Monitored)?? RR:??18?? BP:??154/68?? SpO2:??94%?? HT:??160.000??cm?? WT:??96.40??kg?? BMI:??38.000?? Pain Score:??10?? O2 Therapy:??Room air?? Pain is reproduced by palpation this??superior part of his sternum.?? Stool is heme-negative. Medical Decision Making: Problem complexity is moderate. ??Data complexity is moderate. ??Management risk are??moderate.?? [facility] coding 47054. Procedure No Qualifying Data Assessment/Plan Ordered: acetaminophen, 1,000 mg = 100 mL, IV Piggyback, Soln-IV, Once, Administer over: 0.3 hr, First Dose:11/08/22 8:35:00 EDT, Stop Date: 11/08/22 8:35:00 EDT, Physician Stop, STAT, 400 mL/hr ferrous fumarate 300 mg oral tablet, 300 mg = 1 tab, Oral, Daily, X 90 days, # 90 tab, 0 Refill(s),02/06/23 9:24:00 EST, Pharmacy: [id number], 160, cm, 11/08/22 6:19:00 EDT, Height/LengthDosing, 96.4, kg, 11/08/22 6:19:00 EDT, Weight Dosing ketorolac, 30 mg = 1 mL, IV Push, Soln, Once, First Dose: 11/08/22 8:35:00 EDT, Stop Date: 238:35:00 EDT, Physician Stop, STAT Discharge Patient, 11/08/22 9:26:00 EDT, Home Independently, Constant Indicator Discharge diagnosis is??chest wall pain,??iron deficiency anemia. Medication Reconciliation New Prescription ferrous fumarate (ferrous fumarate 300 mg oral tablet)1 tab Oral (given by mouth) every day for 90 Days. Refills: 0. ?? Unchanged albuterol (albuterol 90 mcg/inh aerosol inhaler) ?? apixaban (Eliquis 5 mg oral tablet) ?? atorvastatin (atorvastatin 80 mg oral tablet) ?? clopidogrel (clopidogrel 75 mg oral tablet) ?? fluticasone/umeclidinium/vilanterol (Trelegy Ellipta 100 mcg-62.5 mcg-25 mcg/inh inhalation powder) ?? furosemide (furosemide 20 mg oral tablet) ?? gabapentin (gabapentin 300 mg oral capsule) ?? levothyroxine (levothyroxine 50 mcg (0.05 mg) oral tablet) ?? losartan (losartan 50 mg oral tablet) ?? methocarbamol (methocarbamol 500 mg oral tablet)20 EA, TAKE ONE TABLET BY MOUTH FOUR TIMES A DAY ASNEEDED. ?? nitroglycerin (nitroglycerin 0.4 mg sublingual tablet) ?? pantoprazole (pantoprazole 40 mg oral delayed release tablet) ?? polyethylene glycol 3350Oral (given by mouth). 17 Unknown, 1 Refill(s), Take 17 g by mouth daily.. ?? traZODone (traZODone 50 mg oral tablet) Problem List/Past Medical History Ongoing Acute non-ST segment elevation myocardial infarction Acute pulmonary embolism Acute renal failure with oliguria Amputated above knee Bilateral pleural effusion Chronic obstructive lung disease Coronary arteriosclerosis Hernia of anterior abdominal wall Hypertensive disorder Hypothyroidism Myocardial infarction Peripheral arterial disease Salivary gland neoplasm Ulcer of duodenum Viscus structure finding Historical Acute sinusitis Asthma Nicotine dependence Shoulder joint pain Procedure/Surgical History ???Endoscopic retrograde cholangiopancreatography (ERCP); with sphincterotomy/papillotomy (07/25/2022)???Repair of anterior abdominal hernia(s) (ie, epigastric, incisional, ventral, umbilical, spigelian), any approach (ie, open, laparoscopic, robotic), initial, including implantation of mesh or other prosthesis when performed, total length of defect(s); grea (06/01/2022)???Closure of vesicouterine fistula; with hysterectomy Medication Administration Given aspirin, 324 mg, Oral Allergies acetaminophen-hydrocodone??(Skin rash) doxycycline??(Skin rash) sulfADIAZINE??(Skin rash) Social History Alcohol Past- Comments: Quit about 3 months ago Electronic Cigarette/Vaping Electronic Cigarette Use: Never. Home/Environment Living situation: Home with assistance. Substance Use Never Tobacco Former tobacco user Tobacco Use:.- Comments: quit over a month ago Lab Results CBC and Differential?? LATEST RESULTS?? HISTORICAL RESULTS?? WBC?? 11/08/22 06:25?? 10.4 ??High?? 07/24/22?? 22.9 ??High?? RBC?? 11/08/22 06:25?? 4.5?? 07/24/22?? 5.0?? Hgb?? 11/08/22 06:25?? 7.9 ??Low?? 07/24/22?? 13.2?? Hct?? 11/08/22 06:25?? 29.6 ??Low?? 07/24/22?? 43.2?? MCV?? 11/08/22 06:25?? 65.9 ??Low?? 07/24/22?? 86.1?? MCH?? 11/08/22 06:25?? 17.6 ??Low?? 07/24/22?? 26.3?? MCHC?? 11/08/22 06:25?? 26.7 ??Low?? 07/24/22?? 30.6 ??Low?? RDW-CV?? 11/08/22 06:25?? 22.6 ??High?? 07/24/22?? 14.4?? Platelets?? 11/08/22 06:25?? 937 ??Critical?? 07/24/22?? 553 ??High?? Neutro Auto?? 11/08/22 06:25?? 64.7?? 03/17/22?? 71.4?? Lymph Auto?? 11/08/22 06:25?? 19.8 ??Low?? 03/17/22?? 17.0 ??Low?? Cowley Auto?? 11/08/22 06:25?? 8.6?? 03/17/22?? 7.4?? Eos, Auto?? 11/08/22 06:25?? 5.1?? 03/17/22?? 2.9?? Basophil Auto?? 11/08/22 06:25?? 1.1 ??High?? 03/17/22?? 0.8?? Imm Gran Auto?? 11/08/22 06:25?? 0.7?? 03/17/22?? 0.5?? Neutro Absolute?? 11/08/22 06:25?? 6.7?? 03/17/22?? 9.1?? RBC Morph?? 11/08/22 06:25?? Abnormal?? 07/24/22?? Normal?? Anisocyte?? 11/08/22 06:25?? Large? Hypochromia?? 11/08/22 06:25?? Moderate? Microcyte?? 11/08/22 06:25?? Moderate? Ovalocytes?? 11/08/22 06:25?? Small? Plt Estimation?? 11/08/22 06:25?? Increased Abnormal? Poik?? 11/08/22 06:25?? Small? Polychrom?? 11/08/22 06:25?? Small? Slide Review?? 11/08/22 06:25?? Morph Only?? 07/24/22?? Man Diff? Miscellaneous Hematology?? LATEST RESULTS?? Reticulocyte %?? 11/08/22 06:30?? 2.0? Coagulation?? LATEST RESULTS?? D Dimer, (Quant.)?? 11/08/22 06:25?? <0.19? Routine Chemistry?? LATEST RESULTS?? HISTORICAL RESULTS?? Sodium Level?? 11/08/22 06:25?? 137?? 07/24/22?? 138?? Potassium Level?? 11/08/22 06:25?? 4.0?? 07/24/22?? 3.8?? Chloride Level?? 11/08/22 06:25?? 101?? 07/24/22?? 101?? CO2?? 11/08/22 06:25?? 29?? 07/24/22?? 29?? Alk Phos?? 11/08/22 06:25?? 120?? 07/24/22?? 169 ??High?? AST?? 11/08/22 06:25?? 14 ??Low?? 07/24/22?? 47 ??High?? ALT?? 11/08/22 06:25?? 26?? 07/24/22?? 45?? BUN?? 11/08/22 06:25?? 27 ??High?? 07/24/22?? 19 ??High?? Glucose Level?? 11/08/22 06:25?? 118 ??High?? 07/24/22?? 186 ??High?? Creatinine Level?? 11/08/22 06:25?? 0.90?? 07/24/22?? 0.99?? eGFR AA?? 11/08/22 06:25?? 74?? 07/24/22?? 66?? eGFR Non-AA?? 11/08/22 06:25?? 74?? 07/24/22?? 66?? Calcium Level?? 11/08/22 06:25?? 9.0?? 07/24/22?? 8.8?? Protein Total?? 11/08/22 06:25?? 7.1?? 07/24/22?? 7.5?? Albumin Level?? 11/08/22 06:25?? 3.3 ??Low?? 07/24/22?? 3.4?? Bilirubin Total?? 11/08/22 06:25?? 0.4?? 07/24/22?? 0.6?? Iron?? 11/08/22 06:30?? 12 ??Low? Lipase Level?? 11/08/22 06:25?? 43?? 07/24/22?? 26?? CRP High Sens?? 11/08/22 06:30?? 20.41 ??High? Cardiac Isoenzymes?? LATEST RESULTS?? HISTORICAL RESULTS?? Troponin-I?? 11/08/22 06:25?? 9.5?? 07/24/22?? 5.0? Electronically Signed on 11/08/22 09:27 AM Ricky Son MD * Adriano Angulo MD: PERFORM Event Display: ED Note Physician Authored Date: [id number] ADAIR KONG :1965 Age:57 years Sex:Female Visit Date:11/08/2022 Primary Care Physician: Nya Hernandez PSYCHIATRIC RN HPI 57-year-old female with history of PE, ACS, COPD, CAD, HTN, hypothyroidism, and gallstones presentsfor evaluation of approximately 1.5 hours of chest pain that was transient relieved by nitroglycerin (patient took her own prior to arrival). No fevers, chills, shortness of breath. ?? M/S/F/SocHx notable for: please see HPI; remainder reviewed with patient and in chart.? ROS: Negative constitutional, eye, cardiovascular, pulmonary, GI, , MSK, skin, neurologic, psychiatric, endocrine unless noted in the HPI. ?? Exam HR 97, RR 16, BP 125/54, T 36.1?C, SaO2 94% on room air. Gen: Pleasant, non-toxic appearing, resting comfortably. HEENT: NC, AT, PEERL, EOMI. Resp: Clear to auscultation bilaterally, normal work of breathing. Card: RRR with no M/R/G, no crackles in lung bases, no pedal edema, no JVD appreciated.?? GI: NT/ND MSK: No chest wall TTP. Right AKA, no further visible deformities, strength and tone WNL. Skin: Normal color with no visible lesions. Neuro: AO x 3, no facial asymmetry, vision and hearing WNL. Psych: Mood and affect appropriate.? Labs WBC 10.4, Hb 7.9, PLT 937. Troponin, lipase, CMP pending. ?? Imaging EKG: SR at 96 bpm, no PA segment depressions, no new ST segment changes, new LBBB, or T-wave changes that would suggest acute ischemia. ?? CXR: Pending. ?? MDM Previous chart, nursing note, and vitals reviewed.?? A:??57-year-old female with history of PE, ACS, COPD, CAD, HTN, hypothyroidism, and gallstones presents for evaluation of approximately 1.5 hours of chest pain that was transient relieved by nitroglycerin (patient took her own prior to arrival). ?? DDx: ACS, unstable angina, pericarditis, myocarditis, dissection, PE, mediastinal air, pneumothorax, MSK, endocarditis, GI (GERD, gastritis, esophageal rupture, esophageal spasm). ?? Evaluation: Initial ECG without evidence of STEMI, patient given 324 mg aspirin and SL nitroglycerin. CBC resulted at time of patient care transferred to the daytime ED physician, patient with new anemia (Hb 7.9, prior value on July 24, 2022 was 13.2) and increase thrombocytosis (platelets 937, on July 24, 2022 it was 553).? Impression: chest pain. Electronically Signed on 11/08/22 06:47 AM Adriano Angulo MD Emergency department Discharge instructions * Ricky Son MD: PERFORM Event Display: ED Discharge Information Authored Date: [id number] ADAIR KONG :1965 Age:57 years Sex:Female Visit Date:11/08/2022 Primary Care Physician: Nya Hernandez PSYCHIATRIC RN Discharge Instructions We would like to thank you for allowing us to assist you with your healthcare needs. The following includes patient education materials and information regarding your injury/illness. Discharge Vitals Temperature??(Temporal Artery) 97.0 ??F (36.1 ??C) Heart Rate??(Peripheral) 80 Heart Rate??(Monitored) 79 Respiratory Rate?? 18 Blood Pressure?? 154/68?? Height?? 62.99 in (160.000 cm) Weight?? 212.56 lb (96.40 kg) BMI?? 38.000 Allergies acetaminophen-hydrocodone??(Skin rash) doxycycline??(Skin rash) sulfADIAZINE??(Skin rash) What to Do Next Instructions from Your Care Team Take ibuprofen 600 mg with food up to 4 times per day for chest discomfort and/or??acetaminophen 1000 mg up to 4 times per day.?? Take ferrous fumarate??1 tablet daily.?? Take a vitamin C pill along with the ferrous fumarate.?? Follow- up with your primary care provider.?? There should be gradual improvement. ?? Ricky Son MD Upcoming Scheduled Appointments Wednesday 8:30 AM EDT ?? Wednesday 9:45 AM EDT ?? You were treated today on an emergency [...] Emergency Department. Medications What How Much When Instructions Next Dose New ferrous fumarate (ferrous fumarate 300 mg oral tablet) 1 tab Oral (given by mouth) Every day Duration: 90 Days Pickup at [facility] Unchanged albuterol (albuterol 90 mcg/ inh aerosol inhaler) Unchanged apixaban (Eliquis 5 mg oral tablet) Unchanged atorvastatin (atorvastatin 80 mg oral tablet) Unchanged clopidogrel (clopidogrel 75 mg oral tablet) Unchanged fluticasone/ umeclidinium/ vilanterol (Trelegy Ellipta 100 mcg-62.5 mcg-25 mcg/ inh inhalation powder) Unchanged furosemide (furosemide 20 mg oral tablet) Unchanged gabapentin (gabapentin 300 mg oral capsule) Unchanged levothyroxine (levothyroxine 50 mcg (0.05 mg) oral tablet) Unchanged losartan (losartan 50 mg oral tablet) Unchanged methocarbamol (methocarbamol 500 mg oral tablet) 20 EA, TAKE ONE TABLET BY MOUTH FOUR TIMES A DAY NEEDED ?? Unchanged nitroglycerin (nitroglycerin 0.4 mg sublingual tablet) Unchanged pantoprazole (pantoprazole 40 mg oral delayed release tablet) Unchanged polyethylene glycol 3350 Oral (given by mouth) 17 Unknown, 1 Refill(s), Take 17 g by mouth daily. ?? Unchanged traZODone (traZODone 50 mg oral tablet) Pharmacy Information [id number]: [address] [place] [address] [phone] Education Materials Iron Deficiency Anemia, Adult Iron deficiency anemia is when you do not have enough red blood cells or hemoglobin in your blood. This happens because you have too little iron in your body. Hemoglobin carries oxygen to parts of the body. Anemia can cause your body to not get enough oxygen. What are the causes? Not eating enough foods that have iron in them. ? The body not being able to take in iron well. ? Needing more iron due to or heavy menstrual periods, for females. ? Cancer. ? Bleeding in the bowels. ? Many blood draws. What increases the risk? Being . ? Being a teenage girl going through a growth spurt. What are the signs or symptoms? Pale skin, lips, and nails. ? Weakness, dizziness, and getting tired easily. ? Headache. ? Feeling like you cannot breathe well when moving (shortness of breath). ? Cold hands and feet. ? Fast heartbeat or a heartbeat that is not regular. ? Feeling grouchy (irritable) or breathing fast. These are more common in very bad anemia. Mild anemia may not cause any symptoms. How is this treated? This condition is treated by finding out why you do not have enough iron and then getting more iron. It may include: ? Adding foods to your diet that have a lot of iron. ? Taking iron pills (supplements). If you are or , you may need to take extra iron. Your diet often does not provide the amount of iron that you need. ? Getting more vitamin C in your diet. Vitamin C helps your body take in iron. You may need to take iron pills with a glass of orange juice or vitamin C pills. ? Medicines to make heavy menstrual periods maintenance mechanic engine. ? Surgery. You may need blood tests to see if treatment is working. If the treatment does not seem to be working, you may need more tests. Follow these instructions at home: Medicines ? Take muzf-trb-yalkkrf and prescription medicines only as told by your doctor. This includes iron pills and vitamins. ? Take iron pills when your stomach is empty. If you cannot handle this, take them with food. ? Do not drink milk or take antacids at the same time as your iron pills. ? Iron pills may turn your poop (stool)black. ? If you cannot handle taking iron pills by mouth, ask your doctor about getting iron through: ? An IV tube. ? A shot (injection) into a muscle. Eating and drinking ? Talk with your doctor before changing the foods you eat. He or she may tell you to eat foods that have a lot of iron, such as: ? Liver. ? Low-fat (lean) beef. ? Breads and cereals that have iron added to them. ? Eggs. ? Dried fruit. ? Dark green, leafy vegetables. ? Eat fresh fruits and vegetables that are high in vitamin C. They help your body use iron. Foods with a lot of vitamin C include: ? Oranges. ? Peppers. ? Tomatoes. ? Mangoes. ? Drink enough fluid to keep your pee (urine) pale yellow. Managing constipation If you are taking iron pills, they may cause trouble pooping (constipation). To prevent or treat trouble pooping, you may need to: ? Take pjej-vxw-vdeqhrp or prescription medicines. ? Eat foods that are high in fiber. These include beans, whole grains, and fresh fruits and vegetables. ? Limit foods that are high in fat and sugar. These include fried or sweet foods. General instructions ? Return to your normal activities as told by your doctor. Ask your doctor what activities are safe for you. ? Keep yourself clean, and keep things clean around you. ? Keep all follow-up visits as told by your doctor. This is important. Contact a doctor if: ? You feel like you may vomit (nauseous), or you vomit. ? You feel weak. ? You are sweating for no reason. ? You have trouble pooping, such as: ? Pooping less than 3 times a week. ? Straining to poop. ? Having poop that is hard, dry, or larger than normal. ? Feeling full or bloated. ? Pain in the lower belly. ? Not feeling better after pooping. Get help right away if: ? You pass out (faint). ? You have chest pain. ? You have trouble breathing that: ? Is very bad. ? Gets worse with physical activity. ? You have a fast heartbeat, or a heartbeat that does not feel regular. ? You get light-headed when getting up from sitting or lying down. These symptoms may be an emergency. Do not wait to see if the symptoms will go away. Get medical help right away. Call your local emergency services (911 in the [place] Do not drive yourself to the hospital. Summary ? Iron deficiency anemia is when you have too little iron in your body. ? This condition is treated by finding out why you do not have enough iron in your body and then getting more iron. ? Take muzr-hho-dkspfav and prescription medicines only as told by your doctor. ? Eat fresh fruits and vegetables that are high in vitamin C. ? Get help right away if you cannot breathe well. This information is not intended to replace advice given to you by your health care provider. Make sure you discuss any questions you have with your health care provider. Document Revised: 10/31/2019 Document Reviewed: 10/31/2019 [employer] Patient Education ?? 2021 [employer]. Iron Deficiency Anemia, Adult Iron deficiency anemia is a condition in which the concentration of red blood cells or hemoglobin in the blood is below normal because of too little iron. Hemoglobin is a substance in red blood cellsthat carries oxygen to the body's tissues. When the concentration of red blood cells or hemoglobin is too low, not enough oxygen reaches these tissues. Iron deficiency anemia is usually long-lasting, and it develops over time. It may or may not cause symptoms. It is a common type of anemia. What are the causes? This condition may be caused by: ? Not enough iron in the diet. ? Abnormal absorption in the gut. ? Increased need for iron because of or heavy menstrual periods, for females. ? Cancers of the gastrointestinal system, such as colon cancer. ? Blood loss caused by bleeding in the intestine. This may be from a gastrointestinal condition like Crohn's disease. ? Frequent blood draws, such as from blood donation. What increases the risk? The following factors may make you more likely to develop this condition: ? Being . ? Being a teenage girl going through a growth spurt. What are the signs or symptoms? Symptoms of this condition may include: ? Pale skin, lips, and nail beds. ? Weakness, dizziness, and getting tired easily. ? Headache. ? Shortness of breath when moving or exercising. ? Cold hands and feet. ? Fast or irregular heartbeat. ? Irritability or rapid breathing. These are more common in severe anemia. Mild anemia may not cause any symptoms. How is this diagnosed? This condition is diagnosed based on: ? Your medical history. ? A physical exam. ? Blood tests. You may have additional tests to find the underlying cause of your anemia, such as: ? Testing for blood in the stool (fecal occult blood test). ? A procedure to see inside your colon and rectum (colonoscopy). ? A procedure to see inside your esophagus and stomach (endoscopy). ? A test in which cells are removed from bone marrow (bone marrow aspiration) or fluid is removed from the bone marrow to be examined. This is rarely needed. How is this treated? This condition is treated by correcting the cause of your iron deficiency. Treatment may involve: ? Adding iron-rich foods to your diet. ? Taking iron supplements. If you are or , you may need to take extra iron because your normal diet usually does not provide the amount of iron that you need. ? Increasing vitamin C intake. Vitamin C helps your body absorb iron. Your health care provider may recommend that you take iron supplements along with a glass of orange juice or a vitamin C supplement. ? Medicines to make heavy menstrual flow maintenance mechanic engine. ? Surgery. You may need repeat blood tests to determine whether treatment is working. If the treatment does not seem to be working, you may need more tests. Follow these instructions at home: Medicines ? Take yidd-meu-cwpisqs and prescription medicines only as told by your health care provider. This includes iron supplements and vitamins. ? For the best iron absorption, you should take iron supplements when your stomach is empty. If you cannot tolerate them on an empty stomach, you may need to take them with food. ? Do not drink milk or take antacids at the same time as your iron supplements. Milk and antacids mayinterfere with iron absorption. ? Iron supplements may turn stool (feces) a darker color and it may appear black. ? If you cannot tolerate taking iron supplements by mouth, talk with your health care provider about taking them through an IV or through an injection into a muscle. Eating and drinking ? Talk with your health care provider before changing your diet. He or she may recommend that you eatfoods that contain a lot of iron, such as: ? Liver. ? Low-fat (lean) beef. ? Breads and cereals that have iron added to them (are fortified). ? Eggs. ? Dried fruit. ? Dark green, leafy vegetables. ? To help your body use the iron from iron-rich foods, eat those foods at the same time as fresh fruits and vegetables that are high in vitamin C. Foods that are high in vitamin C include: ? Oranges. ? Peppers. ? Tomatoes. ? Mangoes. ? Drink enough fluid to keep your urine pale yellow. Managing constipation If you are taking an iron supplement, it may cause constipation. To prevent or treat constipation, you may need to: ? Take jkjs-phs-frsojsc or prescription medicines. ? Eat foods that are high in fiber, such as beans, whole grains, and fresh fruits and vegetables. ? Limit foods that are high in fat and processed sugars, such as fried or sweet foods. General instructions ? Return to your normal activities as told by your health care provider. Ask your health care provider what activities are safe for you. ? Practice good hygiene. Anemia can make you more prone to illness and infection. ? Keep all follow-up visits as told by your health care provider. This is important. Contact a health care provider if you: ? Feel nauseous or you vomit. ? Feel weak. ? Have unexplained sweating. ? Develop symptoms of constipation, such as: ? Having fewer than three bowel movements a week. ? Straining to have a bowel movement. ? Having stools that are hard, dry, or larger than normal. ? Feeling full or bloated. ? Pain in the lower abdomen. ? Not feeling relief after having a bowel movement. Get help right away if you: ? Faint. If this happens, do not drive yourself to the hospital. ? Have chest pain. ? Have shortness of breath that: ? Is severe. ? Gets worse with physical activity. ? Have an irregular or rapid heartbeat. ? Become light-headed when getting up from a sitting or lying down position. These symptoms may represent a serious problem that is an emergency. Do not wait to see if the symptoms will go away. Get medical help right away. Call your local emergency services (911 in the [place] Do not drive yourself to the hospital. Summary ? Iron deficiency anemia is a condition in which the concentration of red blood cells or hemoglobin in the blood is below normal because of too little iron. ? This condition is treated by correcting the cause of your iron deficiency. ? Take pqyc-yuq-ewxwfxs and prescription medicines only as told by your health care provider. This includes iron supplements and vitamins. ? To help your body use the iron from iron-rich foods, eat those foods at the same time as fresh fruits and vegetables that are high in vitamin C. ? Get help right away if you have shortness of breath that gets worse with physical activity. This information is not intended to replace advice given to you by your health care provider. Make sure you discuss any questions you have with your health care provider. Document Revised: 10/31/2019 Document Reviewed: 10/31/2019 [employer] Patient Education ?? 2021 [email or web address] Tests Performed Medications and Immunizations Administered Given aspirin, 324 mg, Oral Lab Test Name Test Result Date/Time WBC 10.4 x10^3/mcL 11/08/2022 06:25 EDT RBC 4.5 x10^6/mcL 11/08/2022 06:25 EDT Hgb 7.9 g/dL 11/08/2022 06:25 EDT Hct 29.6 % 11/08/2022 06:25 EDT MCV 65.9 fL 11/08/2022 06:25 EDT MCH 17.6 pg 11/08/2022 06:25 EDT MCHC 26.7 g/dL 11/08/2022 06:25 EDT RDW-CV 22.6 % 11/08/2022 06:25 EDT Platelets 937 x10^3/mcL 11/08/2022 06:25 EDT Neutro Auto 64.7 % 11/08/2022 06:25 EDT Lymph Auto 19.8 % 11/08/2022 06:25 EDT Cowley Auto 8.6 % 11/08/2022 06:25 EDT Eos, Auto 5.1 % 11/08/2022 06:25 EDT Basophil Auto 1.1 % 11/08/2022 06:25 EDT Imm Gran Auto 0.7 % 11/08/2022 06:25 EDT Neutro Absolute 6.7 x10^3/mcL 11/08/2022 06:25 EDT RBC Morph Abnormal 11/08/2022 06:25 EDT Anisocyte Large 11/08/2022 06:25 EDT Hypochromia Moderate 11/08/2022 06:25 EDT Microcyte Moderate 11/08/2022 06:25 EDT Ovalocytes Small 11/08/2022 06:25 EDT Plt Estimation Increased 11/08/2022 06:25 EDT Poik Small 11/08/2022 06:25 EDT Polychrom Small 11/08/2022 06:25 EDT Slide Review Morph Only 11/08/2022 06:25 EDT Reticulocyte % 2.0 % 11/08/2022 06:30 EDT D Dimer, (Quant.) <0.19 mg/L 11/08/2022 06:25 EDT Sodium Level 137 mmol/L 11/08/2022 06:25 EDT Potassium Level 4.0 mmol/L 11/08/2022 06:25 EDT Chloride Level 101 mmol/L 11/08/2022 06:25 EDT CO2 29 mmol/L 11/08/2022 06:25 EDT Alk Phos 120 unit/L 11/08/2022 06:25 EDT AST 14 unit/L 11/08/2022 06:25 EDT ALT 26 unit/L 11/08/2022 06:25 EDT BUN 27 mg/dL 11/08/2022 06:25 EDT Glucose Level 118 mg/dL 11/08/2022 06:25 EDT Creatinine Level 0.90 mg/dL 11/08/2022 06:25 EDT eGFR AA 74 11/08/2022 06:25 EDT eGFR Non-AA 74 11/08/2022 06:25 EDT Calcium Level 9.0 mg/dL 11/08/2022 06:25 EDT Protein Total 7.1 g/dL 11/08/2022 06:25 EDT Albumin Level 3.3 g/dL 11/08/2022 06:25 EDT Bilirubin Total 0.4 mg/dL 11/08/2022 06:25 EDT Iron 12 mcg/dL 11/08/2022 06:30 EDT Lipase Level 43 unit/L 11/08/2022 06:25 EDT CRP High Sens 20.41 mg/L 11/08/2022 06:30 EDT Troponin-I 9.5 pg/mL 11/08/2022 06:25 EDT Patient/Fraud Investigator Signature Patient Name:LUCAS KONGEdvin Mortensen I have received this information and my questions have been answered. Patient/Fraud Investigator Name: Patient/Fraud Investigator Signature: Relationship to Patient: Witness Name/Signature: Date: Electronically Signed on: 11/08/2022 09:28 EDTSigned by:Ricky Lyles MD: PERFORM Event Display: ED Discharge Information Authored Date: [id number] ADAIR KONG :1965 Age:57 years Sex:Female Visit Date:11/08/2022 Primary Care Physician: Nya Hernandez PSYCHIATRIC RN Discharge Instructions We would like to thank you for allowing us to assist you with your healthcare needs. The following includes patient education materials and information regarding your injury/illness. Discharge Vitals Temperature??(Temporal Artery) 97.0 ??F (36.1 ??C) Heart Rate??(Peripheral) 80 Heart Rate??(Monitored) 79 Respiratory Rate?? 18 Blood Pressure?? 154/68?? Height?? 62.99 in (160.000 cm) Weight?? 212.56 lb (96.40 kg) BMI?? 38.000 Allergies acetaminophen-hydrocodone??(Skin rash) doxycycline??(Skin rash) sulfADIAZINE??(Skin rash) What to Do Next Instructions from Your Care Team Take ibuprofen 600 mg with food up to 4 times per day for chest discomfort and/or??acetaminophen 1000 mg up to 4 times per day.?? Take ferrous fumarate??1 tablet daily.?? Take a vitamin C pill along with the ferrous fumarate.?? Follow- up with your primary care provider.?? There should be gradual improvement. ?? Ricky Son MD Upcoming Scheduled Appointments Wednesday 8:30 AM EDT ?? Wednesday 9:45 AM EDT ?? You were treated today on an emergency [...] Emergency Department. Medications What How Much When Instructions Next Dose New ferrous fumarate (ferrous fumarate 300 mg oral tablet) 1 tab Oral (given by mouth) Every day Duration: 90 Days Pickup at [facility] 4156 Unchanged albuterol (albuterol 90 mcg/ inh aerosol inhaler) Unchanged apixaban (Eliquis 5 mg oral tablet) Unchanged atorvastatin (atorvastatin 80 mg oral tablet) Unchanged clopidogrel (clopidogrel 75 mg oral tablet) Unchanged fluticasone/ umeclidinium/ vilanterol (Trelegy Ellipta 100 mcg-62.5 mcg-25 mcg/ inh inhalation powder) Unchanged furosemide (furosemide 20 mg oral tablet) Unchanged gabapentin (gabapentin 300 mg oral capsule) Unchanged levothyroxine (levothyroxine 50 mcg (0.05 mg) oral tablet) Unchanged losartan (losartan 50 mg oral tablet) Unchanged methocarbamol (methocarbamol 500 mg oral tablet) 20 EA, TAKE ONE TABLET BY MOUTH FOUR TIMES A DAY NEEDED ?? Unchanged nitroglycerin (nitroglycerin 0.4 mg sublingual tablet) Unchanged pantoprazole (pantoprazole 40 mg oral delayed release tablet) Unchanged polyethylene glycol 3350 Oral (given by mouth) 17 Unknown, 1 Refill(s), Take 17 g by mouth daily. ?? Unchanged traZODone (traZODone 50 mg oral tablet) Pharmacy Information [facility] 4156: [address] [place] [address] [phone] Tests Performed Medications and Immunizations Administered Given aspirin, 324 mg, Oral Lab Test Name Test Result Date/Time WBC 10.4 x10^3/mcL 11/08/2022 06:25 EDT RBC 4.5 x10^6/mcL 11/08/2022 06:25 EDT Hgb 7.9 g/dL 11/08/2022 06:25 EDT Hct 29.6 % 11/08/2022 06:25 EDT MCV 65.9 fL 11/08/2022 06:25 EDT MCH 17.6 pg 11/08/2022 06:25 EDT MCHC 26.7 g/dL 11/08/2022 06:25 EDT RDW-CV 22.6 % 11/08/2022 06:25 EDT Platelets 937 x10^3/mcL 11/08/2022 06:25 EDT Neutro Auto 64.7 % 11/08/2022 06:25 EDT Lymph Auto 19.8 % 11/08/2022 06:25 EDT Cowley Auto 8.6 % 11/08/2022 06:25 EDT Eos, Auto 5.1 % 11/08/2022 06:25 EDT Basophil Auto 1.1 % 11/08/2022 06:25 EDT Imm Gran Auto 0.7 % 11/08/2022 06:25 EDT Neutro Absolute 6.7 x10^3/mcL 11/08/2022 06:25 EDT RBC Morph Abnormal 11/08/2022 06:25 EDT Anisocyte Large 11/08/2022 06:25 EDT Hypochromia Moderate 11/08/2022 06:25 EDT Microcyte Moderate 11/08/2022 06:25 EDT Ovalocytes Small 11/08/2022 06:25 EDT Plt Estimation Increased 11/08/2022 06:25 EDT Poik Small 11/08/2022 06:25 EDT Polychrom Small 11/08/2022 06:25 EDT Slide Review Morph Only 11/08/2022 06:25 EDT Reticulocyte % 2.0 % 11/08/2022 06:30 EDT D Dimer, (Quant.) <0.19 mg/L 11/08/2022 06:25 EDT Sodium Level 137 mmol/L 11/08/2022 06:25 EDT Potassium Level 4.0 mmol/L 11/08/2022 06:25 EDT Chloride Level 101 mmol/L 11/08/2022 06:25 EDT CO2 29 mmol/L 11/08/2022 06:25 EDT Alk Phos 120 unit/L 11/08/2022 06:25 EDT AST 14 unit/L 11/08/2022 06:25 EDT ALT 26 unit/L 11/08/2022 06:25 EDT BUN 27 mg/dL 11/08/2022 06:25 EDT Glucose Level 118 mg/dL 11/08/2022 06:25 EDT Creatinine Level 0.90 mg/dL 11/08/2022 06:25 EDT eGFR AA 74 11/08/2022 06:25 EDT eGFR Non-AA 74 11/08/2022 06:25 EDT Calcium Level 9.0 mg/dL 11/08/2022 06:25 EDT Protein Total 7.1 g/dL 11/08/2022 06:25 EDT Albumin Level 3.3 g/dL 11/08/2022 06:25 EDT Bilirubin Total 0.4 mg/dL 11/08/2022 06:25 EDT Iron 12 mcg/dL 11/08/2022 06:30 EDT Lipase Level 43 unit/L 11/08/2022 06:25 EDT CRP High Sens 20.41 mg/L 11/08/2022 06:30 EDT Troponin-I 9.5 pg/mL 11/08/2022 06:25 EDT Patient/Fraud Investigator Signature Patient Name:ADAIR KONG I have received this information and my questions have been answered. Patient/Fraud Investigator Name: Patient/Fraud Investigator Signature: Relationship to Patient: Witness Name/Signature: Date: Electronically Signed on: 11/08/2022 09:27 EDTSigned by:[facility] Discharge summary * Gaby Mendoza: PERFORM Event Display: Discharge Note Authored Date: [id number] Patient Care team information Care Team Personnel Name: EdisonvenuNoemiNya H PSYCHIATRIC RN Position: PowerChart View Only Member Role: Informed Provider Address: Address: [address] [place] [id number] Name: Zayda Gupta Position: Nurse Member Role: ED Nurse Name: Ricky Son MD Position: Physician Member Role: ED Physician Address: Address: [address] [place] [id number] Name: Adriano Angulo MD Position: Physician Member Role: ED Physician Care Team Related Persons Name: TANG KONG Address: Home [address] [phone]
--- OUTSIDE RECORDS SUMMARY | 2023-03-29 21:51 | XMS_ITS | Continuity of Care Document ---
Author Name Unknown Organization [facility] Address [address] [place] [address] Care Team Providers Care Associate Professor Of Philosophy Name Role Phone Nya Hernandez Primary Care Physician [phone] Encounter [facility] Date(s): 11/10/22 - 11/10/[address] [address] Discharge Disposition: Home or Self Care Attending Physician: Nya Hernandez WHIP OPERATOR Admitting Physician: Nya Hernandez WHIP OPERATOR Referring Physician: Nya Hernandez WHIP OPERATOR Allergies, Adverse Reactions, Alerts Substance Reaction Severity [...] 90 tab, 0 Refill(s), 02/06/23 8:24:00 AM EXTENSION CLERK, Pharmacy: [facility], 160, cm, 11/08/22 6:19:00 [...] on current cardiac regimen. [facility] Continue Lovenox. Recommendations continue anticoagulation for at least 3 months. [facility]: Continue with current inhalers. Procedures [...] hysterectomy Completed Results Laboratory List Name Date Urinalysis with Micro if Indicated and C ulture if Indicated 11/10/22 Ferritin 11/10/22 Iron Level and TIBC 11/10/22 Most recent to oldest [Reference Range]: 1 UA Color Yellow (11/10/22 11:07 AM) UA Urobilinogen Normal (11/10/22 11:07 AM) UA Bili [Negative] Negative (11/10/22 11:07 AM) UA Ketones Negative (11/10/22 11:07 AM) UA Leuk Est Negative (11/10/22 11:07 AM) UA Nitrite Negative (11/10/22 11:07 AM) UA Glucose [Negative] Negative (11/10/22 11:07 AM) UA Protein Negative (11/10/22 11:07 AM) Iron Sat [20-55 %] 12 % *LOW* (11/10/22 10:59 AM) UA Blood Negative (11/10/22 11:07 AM) UA Spec Grav <=1.005 *NA* (11/10/22 11:07 AM) Ferritin Level [8-252 ng/mL] 9 ng/mL (11/10/22 10:59 AM) TIBC [250-450 mcg/dL] 368 mcg/dL (11/10/22 10:59 AM) Iron [50-170 mcg/dL] 43 mcg/dL *LOW* (11/10/22 10:59 AM) UA pH 6.5 *NA* (11/10/22 11:07 AM) UA Appear Clear (11/10/22 11:07 AM) Social History Social History Type Response Tobacco Former tobacco user Tobacco Use:. 1 Sex Female 1quit over a month ago Patient Care team information Care Team Personnel Name: Nya Hernandez WHIP OPERATOR Position: PowerChart View Only Member Role: Informed Provider Address: Address: [address] [place] [address]- Care Team Related Persons Name: TANG KONG Address: Home [address] [phone]
--- OUTSIDE RECORDS SUMMARY | 2023-03-29 21:51 | XMS_ITS | Continuity of Care Document ---
Author Name Unknown Organization [facility] Address [address] [place] [address] Care Team Providers Care Weatherization Crew Leader Name Role Phone Nya Hernandez Primary Care Physician [phone] Encounter [facility] Date(s): 09/25/22 - 09/25/[address] [address] Discharge Disposition: Home or Self Care Attending Physician: Nya Hernandez POWER SHOVEL OPERATOR HELPER Admitting Physician: Nya Hernandez POWER SHOVEL OPERATOR HELPER Referring Physician: Nya Hernandez POWER SHOVEL OPERATOR HELPER Allergies, Adverse Reactions, Alerts Substance Reaction Severity [...] on current cardiac regimen. Continue with aspirin. 2From 10-17-2020 visit: Continue Lovenox. Recommendations continue anticoagulation for at least 3 months. 3From 10-17-2020 visit: Continue with current inhalers. Procedures [...] of vesicouterine fis nicholas; with hysterectomy Completed Social History Social History Type Response Tobacco Former tobacco user Tobacco Use:. 1 Sex Female 1quit over a month ago Patient Care team information Care Team Personnel Name: Nya Hernandez POWER SHOVEL OPERATOR HELPER Position: PowerChart View Only Member Role: Informed Provider Address: Address: [address] [place] [address] [place] Care Team Related Persons Name: TANG KONG Address: Home [address] [phone]
--- OUTSIDE RECORDS SUMMARY | 2023-03-29 21:51 | XMS_ITS | Continuity of Care Document ---
Author Name Unknown Organization [facility] Address [address] [place] [address] Care Team Providers Care Registered Sales Assistant Name Role Phone Edisonvenu Nya Edvin Primary Care Physician Encounter [facility] Date(s): 07/24/22 - 07/24/[address] [address] Encounter Diagnosis Acute cholecystitis due to biliary calculus(Discharge Diagnosis) - 07/24/22 Discharge Disposition: Discharge/Transfer - Other Type of Inst Attending Physician: Gumaro Crabtree MD Admitting Physician: Gumaro Crabtree MD Allergies, Adverse Reactions, Alerts Substance Reaction Severity Status doxycycline Skin rash Unknown Active acetaminophen-hydrocodone Skin rash Unknown Ac tive sulfADIAZINE Skin rash Unknown Active Assessment and Plan Future Appointments Functional Status 07/24/22 Other exposure to Infectious Disease Non e [...] Status: Ordered Results Laboratory List Name Date SARS-CoV-2 (COVID-19) RNA (ID Now) CBC w/ Diff 07/24/22 Comprehensive Metabolic Panel 07/24/22 Lipase Level 07/24/22 Troponin-I 07/24/22 .Manual Differential ([facility]) 07/24/22 Most recent to oldest [Reference Range]: 1 WBC [5.0-10.0 x10^3/mcL] 22.9 x10^3/mcL *HI* (07/24/22 6:58 AM) RBC [4.1-5.3 x10^6/mcL] 5.0 x10^6/mcL (07/24/22 6:58 AM) Segs Man [40-75 %] 72 % (07/24/22 6:58 AM) Lymph Man [20-50 %] 23 % (07/24/22 6:58 AM) Jennings Man [2-15 %] 2 % (07/24/22 6:58 AM) Eos Man [1-6 %] 2 % (07/24/22 6:58 AM) BUN [7-18 mg/dL] 19 mg/dL *HI* (07/24/22 6:58 AM) Glucose Level [74-106 mg/dL] 186 mg/dL *HI* (07/24/22 6:58 AM) Potassium Level [3.5-5.1 mmol/L] 3.8 mmo l/L (07/24/22 6:58 AM) MCV [80.0-96.0 fL] 86.1 fL (07/24/22 6:58 AM) RBC Morph Normal (07/24/22 6:58 AM) AST [15-37 unit/L] 47 unit/L *HI* (07/24/22 6:58 AM) ALT [14-59 unit/L] 45 unit/L (07/24/22 6:58 AM) MCHC [31.0-35.0 g/dL] 30.6 g/dL *LOW* (07/24/22 6:58 AM) Troponin-I [0.0-51.4 pg/mL] 5.0 pg/mL (07/24/22 6:58 AM) Sodium Level [136-145 mmol/L] 138 mmol/L (07/24/22 6:58 AM) Hct [37.0-47.0 %] 43.2 % (07/24/22 6:58 AM) Lipase Level [16-77 unit/L] 26 unit/L (07/24/22:58 AM) Calcium Level [8.5-10.1 mg/dL] 8.8 mg/dL (07/24/22 6:58 AM) Albumin Level [3.4-5.0 g/dL] 3.4 g/dL (07/24/22 6:58 AM) Protein Total [6.4-8.2 g/dL] 7.5 g/dL (07/24/22 6:58 AM) MCH [26.0-32.0 pg] 26.3 pg (07/24/22 6:58 AM) Bilirubin Total [0.2-1.0 mg/dL] 0.6 mg/d L (07/24/22 6:58 AM) Hgb [12.0-16.0 g/dL] 13.2 g/dL (07/24/22 6:58 AM) Alk Phos [46-146 unit/L] 169 unit/L *HI* (07/24/22 6:58 AM) Band Man [0-5 %] 0 % (07/24/22 6:58 AM) Platelets [130-450 x10^3/mcL] 553 x10^3/ mcL *HI* (07/24/22 6:58 AM) CO2 [21-32 mmol/L] 29 mmol/L (07/24/22 6:58 AM) eGFR Non-AA [>=60] 66 (07/24/22 6:58 AM) eGFR AA [>=60] 66 (07/24/22 6:58 AM) Chloride Level [98-107 mmol/L] 101 mmol/ L (07/24/22 6:58 AM) RDW-CV [11.5-14.5 %] 14.4 % (07/24/22 6:58 AM) Slide Review Man Diff (07/24/22 6:58 AM) Abs Neut Man 16.5 x10^3/mcL *NA* (07/24/22 6:58 AM) Creatinine Level [0.55-1.02 mg/dL] 0.99 mg/dL (07/24/22 6:58 AM) SARS-CoV-2 (COVID-19) RNA (ID Now) [Not Detected] Not Detected (07/24/22 1:53 PM) Baso Man [0-1 %] 1 % (07/24/22 6:58 AM) Vital Signs Most recent to oldest [Reference Range]: 1 2 3 Temperature Temporal Artery [36-38 Deg C] 36.8 Deg C (07/24/22 5:35 PM) 36.9 Deg C (07/24/22 2:00 PM) 36.7 Deg C (07/24/22 12:00 PM) Temperature Temporal Artery (DegF) [97.3-100 Deg F] 98.24 Deg F (07/24/22 5:35 PM) 98.42 Deg F (07/24/22 2:00 PM) 98.06 Deg F (07/24/22 12:00 PM) Peripheral Pulse Rate [60-100 bpm] 82 bpm (07/24/22 5:35 PM) 77 bpm (07/24/22 4:00 PM) 76 bpm (07/24/22 3:00 PM) Heart Rate Monitored [60-100 bpm] 85 bpm (07/24/22 5:35 PM) 76 bpm (07/24/22 4:00 PM) 77 bpm (07/24/22 3:00 PM) Respiratory Rate [12-24 br/min] 22 br/min (07/24/22 5:35 PM) 18 br/min (07/24/22 4:00 PM) 15 br/min (07/24/22 3:00 PM) Blood Pressure [90-140/60-90 mmHg] 112/80mmHg (07/24/22 5:35 PM) 102/60mmHg (07/24/22 4:00 PM) 105/57mmHg (07/24/22 3:00 PM) Weight Dosing 93.30 kg (07/24/22 6:53 AM) Weight Estimated 93.30 kg (07/24/22 6:44 AM) Height/Length Dosing 160.000 cm (07/24/22 6:53 AM) Height/Length Estimated 160.000 cm (07/24/22 6:44 AM) Social History Social History Type Response Tobacco Former tobacco user Tobacco Use:. 1 Sex Female 1quit over a month ago Physician Emergency department Note * Gumaro Crabtree MD: PERFORM Event Display: ED Note Physician Authored Date: [id number] ADAIR KONG :1965 Age:57 years Sex:Female Visit Date:07/24/2022 Primary Care Physician: Nya Hernandez NP Basic Information Time Seen: Gumaro Crabtree MD / 07/24/2022 06:54 Chief Complaint Pt reports chest pain radiating to back with nausea and vomiting that started when she woke up thismorning to use ??bathroom and have a large BM History Of Present Illness: Ms. Kong is a pleasant 57-year-old lady with a history documented as significant for but not limited to??COPD, CAD, hypertension, prior MD status post PCI,??PAD, recent ventral hernia repair in May 2022 who presents today for evaluation of abdominal pain with radiation to the back and some vomiting.?? Notes that symptoms began last evening without clear inciting factor. ??Her??vomiting beganthis morning and she did have a small amount of diarrhea associated with it as well. ??She feels like her symptoms are mostly originating from her mid/central abdomen??and then radiate up??into her chest. ??Feels dissimilar from her prior MD. ??She has not had fevers, chills, shortness of breath, urinary symptoms Review of Systems: Positive for abdominal pain, vomiting, diarrhea, chest pain and otherwise as noted in HPI Physical Exam Vitals & Measurements T:??36.7?C ??(Temporal Artery)?? HR:??74??(Peripheral)?? HR:??74??(Monitored)?? RR:??18?? BP:??104/67?? SpO2:??99%?? HT:??160.000??cm?? WT:??93.30??kg??(Estimated)?? Pain Score:??7?? O2 Therapy:??Room air?? Vital signs and nursing notes reviewed ?? CONSTITUTIONAL: _Appears somewhat uncomfortable but not in acute distress SKIN: _Warm, dry, and intact without rash EYES: _extraocular movements are grossly intact, clear conjunctiva HENT: _Normocephalic, atraumatic, moist mucus membranes NECK: _no obvious swelling, normal range of motion PULMONARY: _normal chest rise and fall, lungs are clear bilaterally,??no respiratory distress or stridor CARDIOVASCULAR: _regular rate, regular rhythm,??distal extremities are warm and well perfused GASTROINTESTINAL: _nondistended, well-healing midline laparotomy scar is noted, fairly diffuse tenderness to palpation without appreciable masses, more significant RUQ/epigastric, no rebound GENITOURINARY: _deferred NEUROLOGIC: _normal speech, moves all extremities with equal strength and coordination MUSCULOSKELETAL: _no gross deformities, atraumatic PSYCHIATRIC: _normal mood and affect ? Medical Decision Making: On my initial evaluation the patient appears generally??non-toxic, they engage and answer questionsappropriately, hemodynamically stable, no evidence of tachycardia, easy WOB with SpO2 saturation upper 90s to 100% on room air, afebrile by oral temperature.?? Differential includes but is not limited to obstructive process, gastroenteritis, ulcer disease, GERD, pulmonary/pleural- based diseases andprocesses, acute coronary syndromes, urinary pathology, pancreatitis, right upper quadrant/biliary disease, other. ??Plan for labs as ordered, chest x-ray, CT abdomen/pelvis. Procedure No Qualifying Data Reexamination/Reevaluation Labs reviewed???leukocytosis noted at 22, no significant anemia. ??Renal function preserved and electrolytes generally reassuring. ??Mild elevation in alk phos and AST noted. ??ALT and bilirubin notably normal. Independent review of CT abdomen/pelvis concerning for gallstones and pericholecystic fluid.?? Concerning for cholecystitis. Radiology report reviewed???agree with concern for acute cholecystitis, some sludge is noted in thecommon bile duct??raising concern for choledocholithiasis. ??Her labs do not have??a pattern consistent with choledocholithiasis however.?? Discussed with in-house surgery, Dr. Bhatia, indicates that with recent??complex hernia repair, would recommend touching base with??[facility]. Subsequently discussed with Dr. Vega??at [facility]??who graciously accepts Ms. Kong in transfer.?Indicates they may try nonoperative management??given complex recent??intra-abdominal surgical history.?? Updated Ms. Kong on plan and again reiterated to her that??transfer was for management of this problem and not necessarily for a??surgery.?? She verbalized understanding. ??We will continue with fluids, n.p.o., Zosyn, pain control as needed pending transfer. ?? Medical Decision-Making: Clinical lab tests: ordered and reviewed -??Yes Tests in the radiology section of CPT??: ordered and reviewed -??Yes Tests in the medicine section of CPT??: ordered and reviewed -??Yes Review and summarize past medical records -??Yes - Discuss the patient with other providers -??Yes Independent visualization of images, tracings, or specimens? Yes Assessment/Plan 1.??Acute cholecystitis due to biliary calculus??K80.00 Orders: Tylenol, 1,000 mg = 100 mL, IV Piggyback, Soln-IV, every 6 hr (lennox), Administer over: 15 minutes, First Dose: 07/24/22 14:06:00 EDT, STAT Dilaudid, 0.4 mg = 0.4 mL, Slow IV Push, Soln, every 2 hr for 30 days, PRN pain, breakthrough, First Dose: 07/24/22 14:06:00 EDT, Stop Date: 08/23/22 14:05:00 EDT, Physician Stop, STAT Lactated Ringers Injection 1000 mL, Total Volume (mL): 1,000, 1,000 mL, Soln, IV, 125 mL/hr, Start Date: 07/24/22 13:25:00 EDT, 93.3 kg, Populate Charting Weight From Order, 2.04, m2 Zosyn, 4.5 g = 1 EA, IV Piggyback, Powder-Inj, every 8 hr, Antibiotic Indication Intraabdominal, Administer over: 30 minutes, First Dose: 07/24/22 13:24:00 EDT, STAT NPO, 07/24/22 9:40:00 EDT, Constant Indicator SARS-CoV-2 (COVID-19) RNA (ID Now), Nasal, Stat Collect, 07/24/22 13:44:00 EDT, Once, Nurse collect, Print Label, No, No, No, No, No, Not Transfer to Another Facility, 07/24/22 13:22:00 EDT Medication Reconciliation Unchanged albuterol (albuterol 90 mcg/inh [...] Historical No qualifying data Medication Administration Given Lactated Ringers Injection, 1000 mL, IV !-Zofran, 4 mg, IV Push 0.9% NaCl bolus, 1 L, IV Bolus acetaminophen, 1000 mg, IV Piggyback Dilaudid, 0.4 mg, Slow IV Push HYDROmorphone 1 mg/mL injectable solution, 0.4 mg, Slow IV Push HYDROmorphone 1 mg/mL injectable solution, 0.4 mg, Slow IV Push morphine, 4 mg, IV Push NS bolus, 1000 mL, 1000 mL, IV Piggyback Zosyn, IV Piggyback Allergies acetaminophen-hydrocodone??(Skin rash) doxycycline??(Skin rash) sulfADIAZINE??(Skin rash) Social History Alcohol Past- Comments: Quit about 3 months ago Electronic Cigarette/Vaping Electronic Cigarette Use: Never. Home/Environment Living situation: Home with assistance. Substance Use Never Tobacco Former tobacco user Tobacco Use:.- Comments: quit over a month ago Lab Results CBC and Differential?? LATEST RESULTS?? HISTORICAL RESULTS?? WBC?? 07/24/22 06:58?? 22.9 ??High?? 03/17/22?? 12.8 ??High?? RBC?? 07/24/22 06:58?? 5.0?? 03/17/22?? 5.3?? Hgb?? 07/24/22 06:58?? 13.2?? 03/17/22?? 14.5?? Hct?? 07/24/22 06:58?? 43.2?? 03/17/22?? 45.7?? MCV?? 07/24/22 06:58?? 86.1?? 03/17/22?? 86.6?? MCH?? 07/24/22 06:58?? 26.3?? 03/17/22?? 27.5?? MCHC?? 07/24/22 06:58?? 30.6 ??Low?? 03/17/22?? 31.7?? RDW-CV?? 07/24/22 06:58?? 14.4?? 03/17/22?? 15.0?? Platelets?? 07/24/22 06:58?? 553 ??High?? 03/17/22?? 456 ??High?? Segs Man?? 07/24/22 06:58?? 72? Lymph Man?? 07/24/22 06:58?? 23? Jennings Man?? 07/24/22 06:58?? 2? Eos Man?? 07/24/22 06:58?? 2? Baso Man?? 07/24/22 06:58?? 1? Band Man?? 07/24/22 06:58?? 0? Abs Neut Man?? 07/24/22 06:58?? 16.5? RBC Morph?? 07/24/22 06:58?? Normal? Slide Review?? 07/24/22 06:58?? Man Diff? Routine Chemistry?? LATEST RESULTS?? HISTORICAL RESULTS?? Sodium Level?? 07/24/22 06:58?? 138?? 03/17/22?? 142?? Potassium Level?? 07/24/22 06:58?? 3.8?? 03/17/22?? 3.8?? Chloride Level?? 07/24/22 06:58?? 101?? 03/17/22?? 102?? CO2?? 07/24/22 06:58?? 29?? 03/17/22?? 31?? Alk Phos?? 07/24/22 06:58?? 169 ??High?? 03/17/22?? 146?? AST?? 07/24/22 06:58?? 47 ??High?? 03/17/22?? 23?? ALT?? 07/24/22 06:58?? 45?? 03/17/22?? 32?? BUN?? 07/24/22 06:58?? 19 ??High?? 03/17/22?? 15?? Glucose Level?? 07/24/22 06:58?? 186 ??High?? 03/17/22?? 104?? Creatinine Level?? 07/24/22 06:58?? 0.99?? 03/17/22?? 0.80?? eGFR AA?? 07/24/22 06:58?? 66?? 03/17/22?? 85?? eGFR Non-AA?? 07/24/22 06:58?? 66?? 03/17/22?? 85?? Calcium Level?? 07/24/22 06:58?? 8.8?? 03/17/22?? 9.0?? Protein Total?? 07/24/22 06:58?? 7.5?? 03/17/22?? 7.4?? Albumin Level?? 07/24/22 06:58?? 3.4?? 03/17/22?? 3.5?? Bilirubin Total?? 07/24/22 06:58?? 0.6?? 03/17/22?? 1.0?? Lipase Level?? 07/24/22 06:58?? 26? Cardiac Isoenzymes?? LATEST RESULTS?? Troponin-I?? 07/24/22 06:58?? 5.0? Electronically Signed on 07/24/22 02:43 PM Gumaro Crabtree MD Emergency department Note * Gaby Mendoza: PERFORM Event Display: ED Notes Authored Date: Patient Care team information Care Team Personnel Name: Nya Hernandez PROFESSOR OF MARKETING Position: PowerChart View Only Member Role: Informed Provider Address: Address: [address] [place] [address] [place] Name: Zayda Gupta Position: Nurse Member Role: ED Nurse Name: Gumaro Crabtree MD Position: Physician Member Role: Attending Physician Address: Address: [address] [place] [address] [address] [place] [address] Care Team Related Persons Name: TANG KONG Address: Home [address] [id number]
--- OUTSIDE RECORDS SUMMARY | 2023-03-29 21:51 | XMS_ITS | Continuity of Care Document ---
Author Name Unknown Organization [facility] Address [address] [place] [address] Care Team Providers Care Video Game Developer Name Role Phone Nya Hernandez Primary Care Physician Encounter [facility] Date(s): 01/05/23 - 01/05/[address] [address] Discharge Disposition: Home or Self Care Attending Physician: Nya Hernandez PHOTO TECH Admitting Physician: Nya Hernandez PHOTO TECH Referring Physician: Nya Hernandez PHOTO TECH Allergies, Adverse Reactions, Alerts Substance Reaction Severity [...] 90 tab, 0 Refill(s), 02/06/23 8:24:00 AM CORE STRIPPER, Pharmacy: [id number], 160, cm, 11/08/22 6:19:00 EDT, [...] total length of defect(s); grea 06/01/22 Completed Stent 1 2021 Completed Amputated at lower thigh 2 2020 Completed Closure of vesicouterine fis nicholas; with hysterectomy 1989 Completed 1heart attack 2due to blood clot Results Laboratory List Name Date CBC w/o Diff 01/05/23 Most recent to oldest [Reference Range]: 1 WBC [5.0-10.0 x10^3/mcL] 9.8 x10^3/mcL (01/05/23 9:18 AM) RBC [4.1-5.3 x10^6/mcL] 5.4 x10^6/mcL *HI* (01/05/23 9:18 AM) MCV [80.0-96.0 fL] 81.1 fL (01/05/23 9:18 AM) MCHC [31.0-35.0 g/dL] 30.0 g/dL *LOW* (01/05/23 9:18 AM) Hct [37.0-47.0 %] 43.7 % (01/05/23 9:18 AM) MCH [26.0-32.0 pg] 24.3 pg *LOW* (01/05/23 9:18 AM) Hgb [12.0-16.0 g/dL] 13.1 g/dL (01/05/23 9:18 AM) Platelets [130-450 x10^3/mcL] 389 x10^3/ mcL (01/05/23 9:18 AM) RDW-CV [11.5-14.5 %] 20.9 % *HI* (01/05/23 9:18 AM) Social History Social History Type Response Tobacco Former tobacco user Tobacco Use:. 1 Sex Female 1quit over a month ago Patient Care team information Care Team Personnel Name: Nya Hernandez PHOTO TECH Position: PowerChart View Only Member Role: Informed Provider Address: Address: [address] [place] [address] [place] Care Team Related Persons Name: TANG KONG Address: Home [address] [phone]
--- OUTSIDE RECORDS SUMMARY | 2023-03-29 21:51 | XMS_ITS | Continuity of Care Document ---
Author Name Unknown Organization [facility] Address [address] [place] [address] Care Team Providers Care Spool Fixer Name Role Phone Nya Hernandez Primary Care Physician [phone] Encounter [facility] Date(s): 08/20/22 - 11/28/[address] [address] Discharge Disposition: Home or Self Care Attending Physician: Nya Hernandez CONTINUOUS IMPROVEMENT SPECIALIST Admitting Physician: Nya Hernandez CONTINUOUS IMPROVEMENT SPECIALIST Allergies, Adverse Reactions, Alerts Substance Reaction [...] 90 tab, 0 Refill(s), 02/06/23 8:24:00 AM POLICE SERGEANT, Pharmacy: [facility] 4156, 160, cm, 11/08/22 6:19:00 [...] information Care Team Personnel Name: Nya Hernandez CONTINUOUS IMPROVEMENT SPECIALIST Position: PowerChart View Only Member Role: Informed Provider Address: Address: [address] [place] [address]- Care Team Related Persons Name: TANG KONG Address: Home [address] [phone]
--- OUTSIDE RECORDS SUMMARY | 2023-03-29 21:51 | XMS_ITS | Continuity of Care Document ---
Author Name Unknown Organization [facility] Address [address] [place] [address] Care Team Providers Care Lime Burner Name Role Phone Nya Hernandez Primary Care Physician Encounter [place] Date(s): 09/23/22 - 09/23/[address] [address] Discharge Disposition: Home or Self Care Attending Physician: Nya Hernandez OCEAN EXPORT COORDINATOR Admitting Physician: Nya Hernandez OCEAN EXPORT COORDINATOR Referring Physician: Nya Hernandez OCEAN EXPORT COORDINATOR Allergies, Adverse Reactions, Alerts Substance Reaction Severity [...] information Care Team Personnel Name: Nya Hernandez OCEAN EXPORT COORDINATOR Position: PowerChart View Only Member Role: Informed Provider Address: Address: [address] [place] [address] [place] Care Team Related Persons Name: TANG KONG Address: Home [address] [phone]
--- OUTSIDE RECORDS SUMMARY | 2023-03-29 21:51 | XMS_ITS | Continuity of Care Document ---
Author Name Unknown Organization [facility] Address [address] [place] [address] Care Team Providers Care Attendant Self Service Store Name Role Phone Nya Hernandez Primary Care Physician Encounter [facility] Date(s): 11/16/22 - 11/16/[address] [address] Discharge Disposition: Home or Self Care Attending Physician: Nya Hernandez STOCK PARTS FABRICATOR Admitting Physician: Nya Hernandez STOCK PARTS FABRICATOR Referring Physician: Nya Hernandez STOCK PARTS FABRICATOR Allergies, Adverse Reactions, Alerts Substance Reaction Severity [...] 90 tab, 0 Refill(s), 02/06/23 8:24:00 AM HAND TILE MAKER, Pharmacy: [facility] 4156, 160, cm, 11/08/22 6:19:00 EDT, [...] information Care Team Personnel Name: Nya Hernandez STOCK PARTS FABRICATOR Position: PowerChart View Only Member Role: Informed Provider Address: Address: [address] [place] [address]- Care Team Related Persons Name: TANG KONG Address: Home [address], [phone]
--- OUTSIDE RECORDS SUMMARY | 2023-03-29 21:51 | XMS_ITS | Continuity of Care Document ---
Author Name Unknown Organization [facility] Address [address] [place] [address] Care Team Providers Care Meeting Coordinator Name Role Phone Nya Hernandez Primary Care Physician Encounter [place] Date(s): 02/03/23 - 02/03/[address] [address] Discharge Disposition: Home or Self Care Attending Physician: Nya Hernandez WORKERS' COMPENSATION MAGISTRATE Admitting Physician: Nya Hernandez WORKERS' COMPENSATION MAGISTRATE Referring Physician: Nya Hernandez WORKERS' COMPENSATION MAGISTRATE Allergies, Adverse Reactions, Alerts Substance Reaction Severity [...] 90 tab, 0 Refill(s), 02/06/23 8:24:00 AM MILK SAMPLER, Pharmacy: [facility] 4156, 160, cm, 11/08/22 6:19:00 [...] length of defect(s); grea 06/01/22 Completed Stent 2021 Completed 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 1 Sex Female 1quit over a month ago Cardiology * Kina Burkett: PERFORM Event Display: Event Monitor Authored Date: [id number] ADAIR KONG [id number] Patient placed on Zio Event Monitor 7 days on 02/03/23. Electronically Signed on 02/03/23 08:59 AM Kina Burkett Patient Care team information Care Team Personnel Name: Nya Hernandez WORKERS' COMPENSATION MAGISTRATE Position: PowerChart View Only Member Role: Informed Provider Address: Address: [address] [place] [id number] Care Team Related Persons Name: TANG OKNG Address: Home [address] [phone]
--- OUTSIDE RECORDS SUMMARY | 2023-03-29 21:51 | XMS_ITS | Continuity of Care Document ---
Author Name Unknown Organization [facility] Address [address] [place] [address] Care Team Providers Care Mailer Name Role Phone Nya Hernandez Primary Care Physician [phone] Encounter [place] Date(s): 10/14/22 - 10/14/[address] [address] Encounter Diagnosis COPD exacerbation(Discharge Diagnosis) - 10/14/22 Chronic obstructive pulmonary disease with (acute) exacerbation(Final) - Discharge Disposition: Home or Self Care Attending Physician: Gumaro Crabtree MD Admitting Physician: Gumaro Crabtree MD Allergies, Adverse Reactions, Alerts Substance Reaction Severity Status doxycycline Skin rash Unknown Active acetaminophen-hydrocodone Skin rash Unknown Ac tive sulfADIAZINE Skin rash Unknown Active Assessment and Plan Extracted from: Title:Clinical Document Author:Gaby Mendoza te:10/14/22 Diagnosis: 1. COPD exacerbat ion Comment: Diagnosis: Sore throat - Adult Comment: Future Appointments Functional Status 10/14/22 Family Member Travel History No recent t ravel Recent Travel History No recent travel Other [...] 0 Refill(s) Start Date: 10/29/21 Status: Ordered azithromycin 250 mg oral tablet 250 mg = 1 tab, Oral, Daily, X 4 days, # 4 tab, 0 Refill(s), 10/19/22 10:14:00 AM CDT, Pharmacy: [facility] [id number], 160, cm, 10/14/22 9:42:00 EDT, Height/Length Dosing, 93, kg, 10/14/22 9:42:00 EDT, Weight Dosing Start Date: 10/15/22 Stop Date: 10/19/22 Status: Ordered clopidogrel 75 mg oral tablet [...] 0 Refill(s) Start Date: 08/20/22 Status: Ordered predniSONE 10 mg oral tablet 50 mg = 5 tab, Oral, Daily, X 4 days, # 20 tab, 0 Refill(s), 10/19/22 10:14:00 AM CDT, Pharmacy: [facility] [id number], 160, cm, 10/14/22 9:42:00 EDT, Height/Length Dosing, 93, kg, 10/14/22 9:42:00 EDT, Weight Dosing Start Date: 10/15/22 Stop Date: 10/19/22 Status: Ordered Tessalon Perles 100 mg oral capsule 200 mg = 2 cap, Oral, TID, PRN as needed for cough, X 7 days, # 30 cap, 0 Refill(s), 10/21/22 10:14:00 AM CDT, Pharmacy: [facility] 4156, 160, cm, 10/14/22 9:42:00 EDT, Height/Length Dosing, 93,kg, 10/14/22 9:42:00 EDT, Weight Dosing Start Date: 10/14/22 Stop Date: 10/21/22 Status: Ordered traZODone 50 mg oral tablet [...] hysterectomy Completed Results Laboratory List Name Date Strep A (ID NOW) 10/14/22 Most recent to oldest [Reference Range]: 1 Strep A -IDNOW [Not Detected] Not Detect ed (10/14/22 9:50 AM) Vital Signs Most recent to oldest [Reference Range]: 1 Temperature Temporal Artery [36-38 Deg C ] 35.8 Deg C *LOW* (10/14/22 9:34 AM) Peripheral Pulse Rate [60-100 bpm] 91 bp m (10/14/22 9:34 AM) Respiratory Rate [12-24 br/min] 20 br/mi n (10/14/22 9:34 AM) Blood Pressure [90-140/60-90 mmHg] 149/6 8mmHg *HI* (10/14/22 9:34 AM) Weight Dosing 93.00 kg (10/14/22 9:42 AM) Weight Estimated 93.00 kg (10/14/22 9:34 AM) Height/Length Dosing 160.000 cm (10/14/22 9:42 AM) Height/Length Estimated 160.000 cm (10/14/22 9:34 AM) Social History Social History Type Response Tobacco Former tobacco user Tobacco Use:. 1 Sex Female 1quit over a month ago Hospital Discharge Instructions Follow Up Care 10/14/2022 09:34:50 With:Nya Hernandez STOREROOM KEEPER Address: [address] [place] [address] When:1 week Physician Emergency department Note * Gumaro Crabtree MD: PERFORM Event Display: ED Note Physician Authored Date: [id number] ADAIR KONG :1965 Age:57 years Sex:Female Visit Date:10/14/2022 Primary Care Physician: Nya Hernandez STOREROOM KEEPER Basic Information Time Seen: Gumaro Crabtree MD / 10/14/2022 10:08 Chief Complaint Cold symtpoms for 2 weeks, ??dry cough and sore throat, Negative for covid at PCP 2 weeks ago. taking Robutussin at home with no relief from cough History Of Present Illness: This is a 57-year-old lady with a significant past medical history including but not limited to??NSTEMI, PE on Eliquis,??COPD, PAD,??who presents today for evaluation??of cough. ??She indicates that symptoms have been ongoing for about the last 2 weeks or so. ??Has been minimally productive. ??She does have associated shortness of breath some chills with it as well. ??She has been taking Robitussin without significant improvement.?? She does note sore throat predominantly from coughing and somenasal congestion as well. Review of Systems: Positive for cough and otherwise as noted in the HPI Physical Exam Vitals & Measurements T:??35.8?C ??(Temporal Artery)?? HR:??91??(Peripheral)?? RR:??20?? BP:??149/68?? SpO2:??95%?? HT:??160.000??cm?? WT:??93.00??kg??(Estimated)?? O2 Therapy:??Room air?? Vital signs and nursing notes reviewed ?? CONSTITUTIONAL: _well appearing in no acute distress SKIN: _Warm, dry, and intact without rash EYES: _extraocular movements are grossly intact, clear conjunctiva HENT: _Normocephalic, atraumatic, moist mucus membranes NECK: _no obvious swelling, normal range of motion PULMONARY: _normal chest rise and fall, scattered wheezing but overall reasonable air movement,??norespiratory distress or stridor CARDIOVASCULAR: _regular rate, regular rhythm, systolic murmur noted,??distal extremities are warm and well perfused GASTROINTESTINAL: _nondistended GENITOURINARY: _deferred NEUROLOGIC: _normal speech, moves all extremities with equal strength and coordination MUSCULOSKELETAL: _no gross deformities, atraumatic PSYCHIATRIC: _normal mood and affect ? Medical Decision Making: ? On my initial evaluation the patient appears generally well and non-toxic, they engage and answer questions appropriately, hemodynamically stable, no evidence of tachycardia, easy WOB with SpO2 saturation upper 90s to 100% on room air, afebrile by oral temperature.?? With ongoing cough, some wheezing, history of COPD, suspect COPD exacerbation versus pneumonia versus other pulmonary/pleural-baseddisease and processes versus viral syndromes??versus other. ??Will plan to check chest x-ray and??will likely plan to treat for??COPD exacerbation. Procedure No Qualifying Data Reexamination/Reevaluation Independent review of chest x-ray does not show focal consolidation that would be consistent with pneumonia, radiology report is in agreement. ??Reviewed with patient her history of ulcer and she states that this was quite a long time ago and she has tolerated prednisone??well. ??She has noted to be on escitalopram but has an allergy to doxycycline.?? Will have her hold the escitalopram and startazithromycin/prednisone and continue her inhalers to treat for COPD exacerbation. ??Reviewed returnprecautions to the emergency department she verbalized good understanding and agreement. ? Medical Decision-Making: Clinical lab tests: ordered and reviewed -??Yes Tests in the radiology section of CPT??: ordered and reviewed -??Yes Tests in the medicine section of CPT??: ordered and reviewed -??Yes Independent visualization of images, tracings, or specimens? Yes Assessment/Plan 1.??COPD exacerbation??J44.1 Ordered: azithromycin, 500 mg = 2 tab, Oral, Tab, Once, Antibiotic Indication COPD exacerbation, First Dose:10/14/22 11:14:00 EDT, Stop Date: 10/14/22 11:14:00 EDT, Physician Stop, STAT azithromycin 250 mg oral tablet, 250 mg = 1 tab, Oral, Daily, X 4 days, # 4 tab, 0 Refill(s), 10/19/22 11:14:00 EDT, Pharmacy: [facility], 160, cm, 10/14/22 9:42:00 EDT, Height/Length Dosing, 93, kg, 10/14/22 9:42:00 EDT, Weight Dosing Tessalon Perles 100 mg oral capsule, 200 mg = 2 cap, Oral, TID, PRN as needed for cough, X 7 days, # 30 cap, 0 Refill(s), 10/21/22 11:14:00 EDT, Pharmacy: [facility] 4156, 160, cm, 10/14/22 9:42:00 EDT, Height/Length Dosing, 93, kg, 10/14/22 9:42:00 EDT, Weight Dosing predniSONE 10 mg oral tablet, 50 mg = 5 tab, Oral, Daily, X 4 days, # 20 tab, 0 Refill(s), 10/19/2310:14:00 EDT, Pharmacy: [facility] 4156, 160, cm, 10/14/22 9:42:00 EDT, Height/Length Dosing,93, kg, 10/14/22 9:42:00 EDT, Weight Dosing Discharge Patient, 10/14/22 11:17:00 EDT, Home Independently, Constant Indicator ?? Follow Up With When Contact Information Nya Hernandez STOREROOM KEEPER Within [address] [place] [address] Additional Instructions: Medication Reconciliation New Prescription azithromycin (azithromycin 250 mg oral tablet)1 tab Oral (given by mouth) every day for 4 Days. Refills: 0. ?? benzonatate (Tessalon Perles 100 mg oral capsule)2 Capsules Oral (given by mouth) 3 times a day as needed as needed for cough for 7 Days. Refills: 0. ?? predniSONE (predniSONE 10 mg oral tablet)5 tab Oral (given by mouth) every day for 4 Days. Refills:0. ?? Unchanged albuterol (albuterol 90 mcg/inh aerosol [...] vesicouterine fistula; with hysterectomy Medication Administration Given predniSONE, 50 mg, Oral Tessalon Perles, 200 mg, Oral Allergies acetaminophen-hydrocodone??(Skin rash) doxycycline??(Skin rash) sulfADIAZINE??(Skin rash) Social History Alcohol Past- Comments: Quit about 3 months ago Electronic Cigarette/Vaping Electronic Cigarette Use: Never. Home/Environment Living situation: Home with assistance. Substance Use Never Tobacco Former tobacco user Tobacco Use:.- Comments: quit over a month ago Lab Results Infectious Disease?? LATEST RESULTS?? Strep A -IDNOW?? 10/14/22 09:50?? Not Detected? Electronically Signed on 10/14/22 02:58 PM Gumaro Crabtree MD Emergency department Discharge instructions * Gumaro Crabtree MD: PERFORM Event Display: ED Discharge Information Authored Date: [id number] ADAIR KONG :1965 Age:57 years Sex:Female Visit Date:10/14/2022 Primary Care Physician: Nya Hernandez STOREROOM KEEPER Discharge Instructions We would like to thank you for allowing us to assist you with your healthcare needs. The following includes patient education materials and information regarding your injury/illness. Diagnosis from Today's Visit COPD exacerbation Discharge Vitals Temperature??(Temporal Artery) 96.4 ??F (35.8 ??C) Heart Rate??(Peripheral) 91 Respiratory Rate?? 20 Blood Pressure?? 149/68?? Height?? 62.99 in (160.000 cm) Weight??(Estimated) 205.06 lb (93.00 kg) Allergies acetaminophen-hydrocodone??(Skin rash) doxycycline??(Skin rash) sulfADIAZINE??(Skin rash) What to Do Next Instructions from Your Care Team Thankfully your strep swab was negative today and the??chest x-ray did not show a??pneumonia. ??We are going to treat for COPD exacerbation since your cough has not gotten better??with??prednisone and azithromycin.?? You received today's doses here in the emergency department so you will start taking the prescription tomorrow morning. ??Please continue to use your inhalers as prescribed and you may use the albuterol/rescue inhaler more frequently until you are feeling better.?? You may use the Tessalon Perles to help with cough.?? Please follow-up with your regular doctor in the next week or so if you are still having symptoms and return to the emergency department if you have any new or concerning symptoms including any??new trouble breathing, chest pain, lightheadedness/dizziness/passing out, or if you have any other symptoms that concern you. You Need to Schedule the Following Appointments Follow Up with??Nya Hernandez NP When:??Within 1 week Where: [address] [place] [address]- Upcoming Scheduled Appointments 2022 10:15 AM EDT ?? With: Bee Zheng PT Where: [facility] [address] [place] [phone] Status: Confirmed Wednesday 8:30 AM EDT ?? Where: [facility] Cardiology Status: Confirmed You were treated today on an emergency [...] Much When Why Instructions Next Dose New azithromycin (azithromycin 250 mg oral tablet) 1 tab Oral (given by mouth) Every day COPD exacerbation Duration: 4 Days Pickup at [facility] 4156 New benzonatate (Tessalon Perles 100 mg oral capsule) 2 Capsules Oral (given by mouth) 3 times a day as needed for as needed for cough COPD exacerbation Duration: 7 Days Pickup at [facility] 4156 New predniSONE (predniSONE 10 mg oral tablet) 5 tab Oral (given by mouth) Every day COPD exacerbation Duration: 4 Days Pickup at [facility] 4156 Unchanged albuterol (albuterol 90 mcg/ [...] (traZODone 50 mg oral tablet) Pharmacy Information [facility] 4156: [address] [place] [address] [phone] Tests Performed Medications and Immunizations Administered Given predniSONE, 50 mg, Oral Tessalon Perles, 200 mg, Oral Lab Test Name Test Result Date/Time Strep A -IDNOW Not Detected 10/14/2022 09:50 EDT Patient/Terrazzo Tile Setter Signature Patient Name:ADAIR KONG I have received this information and my questions have been answered. Patient/Terrazzo Tile Setter Name: Patient/Terrazzo Tile Setter Signature: Relationship to Patient: Witness Name/Signature: Date: Electronically Signed on: 10/14/2022 11:17 EDTSigned by:CHRISTIANO Discharge summary * Gaby Mendoza: PERFORM Event Display: Discharge Note Authored Date: * Gaby Mendoza: PERFORM Event Display: Discharge Note Authored Date: Diagnosis: 1. COPD exacerbation Comment: Diagnosis: Sore throat - Adult Comment: Electronically Signed on 10/14/22 11:32 AM Gaby Mendoza Patient Care team information Care Team Personnel Name: Nya Hernandez NP Position: PowerChart View Only Member Role: Informed Provider Address: Address: [address] [place] [address] Name: Kenneth Worrell RN Position: Nurse Member Role: ED Nurse Name: Gumaro Crabtree MD Position: Physician Member Role: Admitting Physician Address: Address: [address] [place] [address] [address] [place] [address] Care Team Related Persons Name: TANG KONG Address: Home [address] [phone]
--- OUTSIDE RECORDS SUMMARY | 2023-03-29 21:52 | XMS_ITS | Continuity of Care Document ---
Author Name Unknown Organization [facility] Address [address] [place] [address] Care Team Providers Care Newspaper Carriers Supervisor Name Role Phone Nya Hernandez Primary Care Physician Encounter [place] Date(s): 02/16/23 - 02/16/[address] [address] Discharge Disposition: Home or Self Care Attending Physician: Nya Hernandez FOREPART RASPER Admitting Physician: Nya Hernandez FOREPART RASPER Referring Physician: Nya Hernandez FOREPART RASPER Allergies, Adverse Reactions, Alerts Substance Reaction Severity [...] aspirin 81 mg oral delayed release tablet 81 mg = 1 tab, Oral, Daily, # 90 tab, 0 Refill(s) Start Date: 02/15/23 Status: Ordered atorvastatin 80 mg oral tablet [...] 0 Refill(s) Start Date: 08/20/22 Status: Ordered Protonix 40 mg oral delayed release tablet 40 mg = 1 tab, Oral, Daily, # 90 tab, 0 Refill(s) Start Date: 02/15/23 Status: Ordered Proventil HFA 0 Refill(s) Start Date: 02/15/23 Status: Ordered traZODone 50 mg oral tablet [...] Laboratory List Name Date CBC w/o Diff 02/16/23 Ferritin 02/16/23 Iron Level and TIBC 02/16/23 Most recent to oldest [Reference Range]: 1 WBC [5.0-10.0 x10^3/mcL] 9.8 x10^3/mcL (02/16/23 8:45 AM) RBC [4.1-5.3 x10^6/mcL] 5.3 x10^6/mcL (02/16/23 8:45 AM) MCV [80.0-96.0 fL] 83.3 fL (02/16/23 8:45 AM) MCHC [31.0-35.0 g/dL] 31.2 g/dL (02/16/23 8:45 AM) Hct [37.0-47.0 %] 43.9 % (02/16/23 8:45 AM) Iron Sat [20-55 %] 24 % (02/16/23 8:45 AM) MCH [26.0-32.0 pg] 26.0 pg (02/16/23 8:45 AM) Hgb [12.0-16.0 g/dL] 13.7 g/dL (02/16/23 8:45 AM) Ferritin Level [8-252 ng/mL] 27 ng/mL (02/16/23 8:45 AM) Platelets [130-450 x10^3/mcL] 393 x10^3/ mcL (02/16/23 8:45 AM) TIBC [250-450 mcg/dL] 309 mcg/dL (02/16/23 8:45 AM) Iron [50-170 mcg/dL] 75 mcg/dL (02/16/23 8:45 AM) RDW-CV [11.5-14.5 %] 15.1 % *HI* (02/16/23 8:45 AM) Social History Social History Type Response Tobacco Former tobacco user Tobacco Use:. 1 Sex Female 1quit over a month ago Patient Care team information Care Team Personnel Name: Nya Hernandez FOREPART RASPER Position: PowerChart View Only Member Role: Informed Provider Address: Address: [address] [place] [address] Care Team Related Persons Name: TANG KONG Address: Home [address] [phone]
--- OUTSIDE RECORDS SUMMARY | 2023-03-29 21:52 | XMS_ITS | Continuity of Care Document ---
Author Name Unknown Organization [facility] Address [address] [place] [address] Care Team Providers Care Icing And Glaze Maker Name Role Phone Nya Hernandez Primary Care Physician Encounter [place] Date(s): 11/17/22 - 11/17/[address] [address] Discharge Disposition: Home or Self Care Attending Physician: Nya Hernandez RETAIL AND PROMOTIONS COORDINATOR Admitting Physician: Nya Hernandez RETAIL AND PROMOTIONS COORDINATOR Referring Physician: Nya Hernandez RETAIL AND PROMOTIONS COORDINATOR Allergies, Adverse Reactions, Alerts Substance Reaction [...] 90 tab, 0 Refill(s), 02/06/23 8:24:00 AM POST ACUTE CARE REGISTERED NURSE, Pharmacy: [facility], 160, cm, 11/08/22 6:19:00 [...] information Care Team Personnel Name: Nya Hernandez RETAIL AND PROMOTIONS COORDINATOR Position: PowerChart View Only Member Role: Informed Provider Address: Address: [address] [place] [address] Care Team Related Persons Name: TANG KONG Address: Home [address], [phone]
--- OUTSIDE RECORDS SUMMARY | 2023-03-29 21:52 | XMS_ITS | Continuity of Care Document ---
Author Name Unknown Organization [facility] Address [address] [place] [address] Care Team Providers Care Professor Of Philosophy Name Role Phone Nya Hernandez Primary Care Physician Encounter [facility] Date(s): 02/09/23 - 02/09/[address] [address] Discharge Disposition: Home or Self Care Attending Physician: Nya Hernandez INDIVIDUALIZED EDUCATION PLAN AIDE Admitting Physician: Nya Hernandez INDIVIDUALIZED EDUCATION PLAN AIDE Referring Physician: Nya Hernandez INDIVIDUALIZED EDUCATION PLAN AIDE Allergies, Adverse Reactions, Alerts Substance Reaction Severity [...] Laboratory List Name Date CBC w/o Diff 02/09/23 Most recent to oldest [Reference Range]: 1 WBC [5.0-10.0 x10^3/mcL] 10.4 x10^3/mcL *HI* (02/09/23 8:28 AM) RBC [4.1-5.3 x10^6/mcL] 5.3 x10^6/mcL (02/09/23 8:28 AM) MCV [80.0-96.0 fL] 83.5 fL (02/09/23 8:28 AM) MCHC [31.0-35.0 g/dL] 30.7 g/dL *LOW* (02/09/23 8:28 AM) Hct [37.0-47.0 %] 44.6 % (02/09/23 8:28 AM) MCH [26.0-32.0 pg] 25.7 pg *LOW* (02/09/23 8:28 AM) Hgb [12.0-16.0 g/dL] 13.7 g/dL (02/09/23 8:28 AM) Platelets [130-450 x10^3/mcL] 359 x10^3/ mcL (02/09/23 8:28 AM) RDW-CV [11.5-14.5 %] 15.2 % *HI* (02/09/23 8:28 AM) Social History Social History Type Response Tobacco Former tobacco user Tobacco Use:. 1 Sex Female 1quit over a month ago Patient Care team information Care Team Personnel Name: Nya Hernandez INDIVIDUALIZED EDUCATION PLAN AIDE Position: PowerChart View Only Member Role: Informed Provider Address: Address: [address] [place] [address] Care Team Related Persons Name: KONG TANG Address: Home [address], [id number]
== END 2023-03-29 21:49 | disposition home or self-care (01) ==
LOC: NCHCN 21:48
PROVIDERS: PCP Nurse Practitioner Family; Visit Provider Nurse Practitioner Family
DX: I25.10 Atherosclerotic heart disease of native coronary artery without angina pectoris (principal); R73.03 Prediabetes
CPT/HCPCS: 80053; 83036

== ENCOUNTER 2023-06-28 19:07 | Outpatient (REF) | payer MEDICARE, MEDICAID, SELFPAY ==
[2023-06-28 19:31] LABS: Calculated LDL 70 mg/dL (<100); Cholesterol 135 mg/dL (<200); HDL Cholesterol 43 mg/dL (40-60); TSH 1.22 uIU/Ml (0.36-3.74); Triglyceride 113 mg/dL (<150)
== END 2023-06-28 19:08 | disposition home or self-care (01) ==
LOC: NCHCN 19:07
PROVIDERS: PCP Nurse Practitioner Family; Visit Provider Nurse Practitioner Family
DX: E03.9 Hypothyroidism, unspecified (principal); I25.10 Atherosclerotic heart disease of native coronary artery without angina pectoris
CPT/HCPCS: 80061; 84443

== ENCOUNTER 2023-12-28 16:12 | Outpatient (REF) | payer MEDICARE, MEDICAID, SELFPAY ==
--- OUTSIDE RECORDS SUMMARY | 2023-12-28 16:16 | XMS_ITS | Encounter Summary ---
Author Organization [facility] Address [address] [place] [address] Care Team Providers Care Commercial Interior Designer Name Role Phone Patrice Brandt MD Primary Care Provider [phone] Encounter Details Date Type Department Care Team (Late st Contact Info) Description 07/17/2023 Lab Requisition [facility] Pathology & Laboratory Medicine - [address] [id number] Outr Resulting Lab, Provider Social History Tobacco Use Types Packs/Day Years Used Date Smoking Tobacco: Never Assessed Sex and Gender Information Value Date Recorded Sex Assigned at Not on file Gender Identity Not on file Sexual Orientation Not on file documented as of this encounter Plan of Treatment Not on file documented as of this encounter Procedures Procedure Name Priority Date/Time Associated Diagnosis Comments ANAEROBE CULTURE/SMEAR(INC. AEROBES), OTHER Routine 07/17/2023 10:00 EDT documented in this encounter Results * (ABNORMAL) ANAEROBE CULTURE/SMEAR(INC. AEROBES), OTHER (07/17/2023 10:00 EDT) Organism ID Few Abiotrophia defectiva(A) 07/25/2023 11:58 EDT [facility] Comment:Susceptibility testi ng is not routinely performed for this organism/site. Organism ID Capnocytophaga Species(A) 07/25/2023 11:58 EDT [facility] Comment: Further identified as: Capnocytophaga ochracea Susceptibility testing is not routinely performed for this organism/site. Organism ID Rare Veillonella species(A) 07/25/2023 11:58 EDT [facility] Smear Many Neutrophils Present(A) 07/25/2023 11:58 EDT [facility] Smear No bacteria seen(A) 07/25/2023 11:58 EDT [facility] Fluid ABSCESS MORPHOLOGY / Unknown 07/17/2023 10:00 EDT 07/18/2023 15:25 EDT Provider Outr Resulting Lab MICROBIOLOGY - GENERAL ORDERABLES Performing Organization Address City/State/[facility] Co de Phone Number [facility] [address] [place] [address] documented in this encounter Visit Diagnoses Not on filedocumented in this encounter Care Teams Commercial Interior Designer Relationship Specialty Start Date End Date Patrice Brandt MD [address] [place] [address] PCP - General 03/06/09 documented as of this encounter
--- OUTSIDE RECORDS SUMMARY | 2023-12-28 16:16 | XMS_ITS | Encounter Summary ---
Author Organization [facility] Address [address] [place] [address] Care Team Providers Care Stockholder Name Role Phone Patrice Brandt MD Primary Care Provider [phone] Encounter Details Date Type Department Care Team (Late st Contact Info) Description 03/28/2020 Lab Requisition [facility] Pathology & Laboratory Medicine - [facility] [address] [place] [address] Outr Resulting Lab, Provider Social History Tobacco [...] Procedure Name Priority Date/Time Associated Diagnosis Comments DO NOT ORDER STANDALONE - BROAD COVID TEST Today 03/28/2020 9:28 EST COVID-19 TESTING Routine 03/28/2020 9:28 EST documented in this encounter Results * DO NOT ORDER STANDALONE - BROAD COVID TEST (03/28/2020 9:28 EST) COVID-19 rt-PCR Result NEGATIVE Negative 03/29/2020 19:27 EST [facility] Comment: 2019-novel Coronavirus (2019-nCoV) not detected by the qRT-PCR assay. Consider testing for other respiratory viruses or re-collecting for 2019-nCoV testing. Note: Optimum timing for peak viral levels during infections caused by 2019-nCoV have not been determined. Collection of multiple specimens from the same patient may be necessary to detect the virus. Limitations Positive results are indicative of active infection with SARS-CoV-2 but do not rule out bacterial infection or co-infection with other viruses. The agent detected may not be the definite cause of disease. In addition, detection of viral RNA may not indicate the presence of infectious virus or that SARS-CoV-2 is the causative agent for clinical symptoms. Negative results do not preclude SARS-CoV-2 infection and should not be used as the sole basis for patient management decisions. Negative results must be combined with clinical observations, patient history, and epidemiological information. False negative results may also occur if amplification inhibitors are present in the specimen or if inadequate numbers of organisms are present in the specimen. Optimum specimen types and timing for peak viral levels during infections caused by SARS-CoV-2 have not been fully determined. Collection of multiple specimens (types and time points) from the same patient may be necessary to detect the virus. The test was validated for use with upper respiratory specimens obtained via nasopharyngeal or oropharyngeal swabs in VTM, UTM, M4, M5, M6, saline, and MTM media. The performance of this test has not been established for other specimens. Specimens collected using other FDA recommended Specimen Collection Materials listed in the FDA COVID-19 Diagnostic Technologies communication (June 01, 2019) are processed with the caveat that they were not all validated for use with this test and the result must be interpreted in this context. Furthermore, a false negative results may occur if a specimen is improperly collected, transported or handled. If the virus mutates in the RT-PCR target region, SARS-CoV-2 may not be detected or may be detected less predictably. Inhibitors or other types of interference may produce a false negative result. An interference study evaluating the effect of common cold medications was not performed. This test is not FDA-cleared but its performance characteristics were established by our CLIA-certified, CAP-accredited, high complexity laboratory in accordance with CLIA regulations, College [employer] (CAP) guidelines (May 25, 2019), and FDA guidance (May 06, 2019). This test is only for use under the Food and Drug Administration's Emergency Use Authorization. Swab ENTIRE NASOPHARYNX / Unknown 03/28/2020 9:28 EST 03/28/2020 16:20 EST Provider Outr Resulting Lab MICROBIOLOGY - GENERAL ORDERABLES [facility] [place], [place] * COVID-19 TESTING (03/28/2020 9:28 EST) COVID-19 rt-PCR Result NEGATIVE Negative 03/29/2020 22:07 EST [facility] Comment: 2019-novel Coronavirus (2019-nCoV) not detected by the qRT-PCR assay. Consider testing for other respiratory viruses or re-collecting for 2019-nCoV testing. Note: Optimum timing for peak viral levels during infections caused by 2019-nCoV have not been determined. Collection of multiple specimens from the same patient may be necessary to detect the virus. Limitations Positive results are indicative of active infection with SARS-CoV-2 but do not rule out bacterial infection or co-infection with other viruses. The agent detected may not be the definite cause of disease. In addition, detection of viral RNA may not indicate the presence of infectious virus or that SARS-CoV-2 is the causative agent for clinical symptoms. Negative results do not preclude SARS-CoV-2 infection and should not be used as the sole basis for patient management decisions. Negative results must be combined with clinical observations, patient history, and epidemiological information. False negative results may also occur if amplification inhibitors are present in the specimen or if inadequate numbers of organisms are present in the specimen. Optimum specimen types and timing for peak viral levels during infections caused by SARS-CoV-2 have not been fully determined. Collection of multiple specimens (types and time points) from the same patient may be necessary to detect the virus. The test was validated for use with upper respiratory specimens obtained via nasopharyngeal or oropharyngeal swabs in VTM, UTM, M4, M5, M6, saline, and MTM media. The performance of this test has not been established for other specimens. Specimens collected using other FDA recommended Specimen Collection Materials listed in the FDA COVID-19 [employer] communication (June 01, 2019) are processed with the caveat that they were not all validated for use with this test and the result must be interpreted in this context. Furthermore, a false negative results may occur if a specimen is improperly collected, transported or handled. If the virus mutates in the RT-PCR target region, SARS-CoV-2 may not be detected or may be detected less predictably. Inhibitors or other types of interference may produce a false negative result. An interference study evaluating the effect of common cold medications was not performed. This test is not FDA-cleared but its performance characteristics were established by our CLIA-certified, CAP-accredited, high complexity laboratory in accordance with CLIA regulations, College [employer] (CAP) guidelines (May 25, 2019), and FDA guidance (May 06, 2019). This test is only for use under the Food and Drug Administration's Emergency Use Authorization. Performing Lab [facility] 03/29/2020 22:07 EST [facility] Swab 03/28/2020 9:28 EST 03/28/2020 16:20 EST Provider Outr Resulting Lab MICROBIOLOGY - GENERAL ORDERABLES [facility] [address] [place], [place] [id number] [place] [address] LABORATORY [place], [place] documented in this encounter Visit Diagnoses Not on filedocumented in this encounter Care Teams Stockholder Relationship Specialty Start Date End Date Patrice Brandt MD [address] [id number] PCP - General 03/06/09 documented as of this encounter
--- OUTSIDE RECORDS SUMMARY | 2023-12-28 16:16 | XMS_ITS | Continuity of Care Document ---
Author Organization [facility] Address [address] [place] [address] Care Team Providers Care Senior Cost Estimator Name Role Phone Nya Hernandez Primary Care Physician [phone] Encounter [facility] Date(s): 07/05/23 - 07/05/[address] [address] Discharge Disposition: Home or Self Care Attending Physician: Nya Hernandez COLLEGE SPORTS COACH Admitting Physician: Nya Hernandez COLLEGE SPORTS COACH Referring Physician: Nya Hernandez COLLEGE SPORTS COACH Allergies, Adverse Reactions, Alerts Substance Reaction Severity Status doxycycline Skin rash Unknown Active acetaminophen-hydrocodone Skin rash Unknown Ac tive sulfADIAZINE Skin rash Unknown Active Bactrim Unknown Active AmLODIPine Besylate 1 Severe Active 1Leg and feet swelling, severe Assessment and Plan Future Appointments Immunizations Given [...] 0 Refill(s) Start Date: 10/29/21 Status: Ordered Colace 0 Refill(s) Start Date: 03/16/23 Status: Ordered Eliquis 5 mg oral tablet 0 Refill(s) Start Date: 10/29/21 Status: Ordered escitalopram 10 mg oral tablet 10 mg = 1 tab, Oral, Daily, # 30 tab, 0 Refill(s) Start Date: 03/16/23 Status: Ordered furosemide 20 mg oral tablet [...] Active Amputated above knee Confirmed 06/27/20 Active Anxiety disorder Confirmed Active Bilateral pleural effusion Confirmed 06/27/20 Active Blood in urine Confirmed Active Breast lump Confirmed Active Chronic obstructive lung disease 3 Confirmed 07/29/21 Active Coronary arteriosclerosis Confirmed 07/29/21 Active Dyspnea Confirmed Active Essential hypertension Confirmed Active Gastroesophageal reflux disease without esophagitis Confirmed Active Hernia of anterior abdominal wall Confirmed 06/01/22 Active Hypertensive disorder Confirmed 07/29/21 Active Hypothyroidism Confirmed 07/29/21 Active Insomnia Confirmed Active Lesion of oral mucosa Confirmed Active Localized edema Confirmed Active Low back pain Confirmed Active Myocardial infarction Confirmed 06/01/21 Active Peripheral arterial disease Confirmed 07/29/21 Active Prediabetes Confirmed Active Restless legs Confirmed Active Salivary gland neoplasm Confirmed Active Ulcer [...] blood clot Results Laboratory List Name Date Lipid Panel 07/05/23 Thyroid Stimulating Hormone 07/05/23 Most recent to oldest [Reference Range]: 1 Cholesterol Total [50-200 mg/dL] 118 mg/ dL (07/05/23 9:06 AM) LDL [0-130 mg/dL] 61 mg/dL (07/05/23 9:06 AM) HDL [40-60 mg/dL] 42 mg/dL (07/05/23 9:06 AM) Triglycerides [0-150 mg/dL] 74 mg/dL (07/05/23 9:06 AM) TSH [0.358-3.740 mcIntlUnit/mL] 1.342 mc IntlUnit/mL (07/05/23 9:06 AM) Social History Social History Type Response Tobacco Former tobacco user Tobacco Use:. 1 Sex Female 1quit over a month ago Patient Care team information Care Team Personnel Name: Nya Hernandez COLLEGE SPORTS COACH Position: PowerChart View Only Member Role: Primary Care Physician Address: Address: [address] [place] [address]- Care Team Related Persons Name: TANG KONG Address: Home [address], [id number]
--- OUTSIDE RECORDS SUMMARY | 2023-12-28 16:16 | XMS_ITS | Continuity of Care Document ---
Author Organization [facility] Address [address] [place] [address] Care Team Providers Care Coal Digger Name Role Phone Nya Hernandez Primary Care Physician Encounter [facility] [id number] Date(s): 08/13/23 - 08/13/[address] [address] Discharge Disposition: Home or Self Care Attending Physician: Nya Hernandez AMPOULE FILLER AND SEALER Admitting Physician: Nya Hernandez AMPOULE FILLER AND SEALER Referring Physician: Nya Hernandez AMPOULE FILLER AND SEALER Allergies, Adverse Reactions, Alerts Substance Reaction Severity [...] 0 Refill(s) Start Date: 10/29/21 Status: Ordered amoxicillin-clavulanate 875 mg-125 mg oral tablet 1 tab, Oral, every 12 hr, # 10 tab, 0 Refill(s), Pharmacy: [id number], 160, cm, :03:00 EDT, Height, 102, kg, 07/15/23 7:30:00 EDT, Weight Dosing Start Date: 07/23/23 Stop Date: 07/28/23 Status: Ordered aspirin 81 mg oral delayed [...] 0 Refill(s) Start Date: 08/20/22 Status: Ordered metoprolol succinate 50 mg oral tablet, extended release 150 mg = 3 tab, Oral, Daily, # 270 tab, 3 Refill(s), Pharmacy: [id number], 160.02, cm, 07/27/23 9:54:00 EDT, Height, 101.6, kg, 07/27/23 10:06:00 EDT, Weight Dosing Start Date: 07/28/23 Status: Ordered nitroglycerin 0.4 mg sublingual tablet 0 Refill(s) Start Date: 10/29/21 Status: Ordered pantoprazole 40 mg oral delayed release tablet 0 Refill(s) Start Date: 10/29/21 Status: Ordered Peridex 0.12% mucous membrane liquid 0.018 g 15 mL, Oral, BID, swish and spit; do not swallow, # 210 mL, 0 Refill(s), Pharmacy: [id number], 160, cm, 07/15/23 7:03:00 EDT, Height, 102, kg, 07/15/23 7:30:00 EDT, Weight Dosing Start Date: 07/15/23 Stop Date: 07/22/23 Status: Ordered polyethylene glycol 3350 Oral, 17 [...] Procedure Date Related Diagnosis Body Site Status Surgical procedure 1 07/14/23 Comp leted Endoscopic retrograde cholangiopancreatography (ERCP); with sphincterotomy/papillotomy 07/25/22 Compl eted Repair of anterior abdominal hernia(s) (ie, epigastric, incisional, ventral, umbilical, spigelian), any approach (ie, open, laparoscopic, robotic), initial, including implantation of mesh or other prosthesis when performed, total length of defect(s); grea 06/01/22 Completed Stent 2021 Completed Amputated at lower thigh 2020 Completed Closure of vesicouterine fis nicholas; with hysterectomy 1989 Completed 1Transoral excision of pleomorphic adenoma 2heart attack 3due to blood clot Social History Social History Type Response Tobacco Former tobacco user Tobacco Use:. 1 Sex Female 1quit over a month ago Patient Care team information Care Team Personnel Name: Nya Hernandez AMPOULE FILLER AND SEALER Position: PowerChart View Only Member Role: Primary Care Physician Address: Address: [address] [place] [address]- Care Team Related Persons Name: TANG KONG Address: Home [address] [id number] Name: MALIA KONG Name: MANUELA KONG
--- OUTSIDE RECORDS SUMMARY | 2023-12-28 16:16 | XMS_ITS | Encounter Summary ---
Author Organization [facility] Address [address] [place] [address] Care Team Providers Care Seismometer Operator Name Role Phone Patrice Brandt MD Primary Care Provider [phone] Encounter Details Date Type Department Care Team (Late st Contact Info) Description 04/28/2023 Lab Requisition [facility] Pathology & Laboratory Medicine - [address] [address] Kervin Gavin MD [address] [place] [address] Encounter for other general examination Social History Tobacco Use Types Packs/Day Years Used Date Smoking Tobacco: Never Assessed Sex and Gender Information Value Date Recorded Sex Assigned at Not on file Gender Identity Not on file Sexual Orientation Not on file documented as of this encounter Plan of Treatment Not on file documented as of this encounter Procedures Procedure Name Priority Date/Time Associated Diagnosis Comments NON FURNITURE DETAILER/FNA CYTOLOGY Today 04/28/2023 13:55 EST documented in this encounter Results * NON FURNITURE DETAILER/FNA CYTOLOGY (04/28/2023 13:55 EST) Note to Patient The following pathology results have been interpreted by your pathologist and may be available to you before your health provider has had the opportunity to review them. Please allow time for your provider to receive these results and explore management options, if applicable. 04/30/2023 12:38 EST [facility] Final Diagnosis A. SUBCUTANEOUS MASS (1.9 CM), RIGHT FACIAL, ULTRASOUND-GUIDE D FINE NEEDLE ASPIRATION: - Pleomorphic adenoma. See comment. 04/30/2023 12:38 EST [facility] Diagnosis Comment The aspirate consists of abundant fibrillary matrix material admixed with occasional groups of bland appearing epithelial cells and scattered myoepithelial cells and bare nuclei. No significant cytologic or architectural atypia identified. Features are typical of pleomorphic adenoma and would correlate with the clinical/radiolo gic impression of sampling a lesion involving accessory right parotid tissue. No evidence of malignancy. The technical component of the specimen processing was performed at the [facility] Pathology Department, [address] [place] [address] (CLIA [id number]). The professional component of the specimen evaluation (slide review and issuing of the final diagnosis) was performed at [facility], [address] [place] [address] (CLIA License Number [id number]). 04/30/2023 12:38 [facility] Attestation By the signature below, the attending physician certifies that they have personally conducted a gross and/or microscopic examination of the described specimens and rendered or confirmed the above diagnosis. 04/30/2023 12:38 [facility] at 1238 Rapid Diagnosis A. SUBCUTANEOUS MASS, 1.9 CM, RIGHT FACIAL, ULTRASOUND GUIDED FINE NEEDLE ASPIRATION: Evaluation Episode 1: Pass 1-2: Adequate. Features c/w pleomorphic adenoma. The above rapid on site evaluation was performed by pathologist Dr. Komal Sandhu at [facility], [address] [place] [address]. 04/28/2023; 2:00 PM 04/30/2023 12:38 [facility] Clinical History 1.9 cm right facial subcutaneous mass, possibly in accessory right parotid tissue 04/30/2023 12:38 [facility] Gross Description A. 1 fixed prepared slide, 1 air dried prepared slide, and 1 tube of CytoLyt were received and processed by selective cellular enhancement technique. 04/30/2023 12:38 [facility] Performing Lab [facility] 04/30/2023 12:38 [facility] Scanned Images 04/30/2023 12:38 [facility] MICHELLE SOFT TISSUE / Unknown 04/28/2023 13:55 EST 04/29/2023 6:26 EST Kervin Gavin MD PATHOLOGY ORDERABLES [facility] [address] [place] [address] documented in this encounter Visit Diagnoses Diagnosis Encounter for other general examination documented in this encounter Care Teams Seismometer Operator Relationship Specialty Start Date End Date Patrice Brandt MD [address] [facility] [address] [place] [address] PCP - General 03/06/09 documented as of this encounter
--- OUTSIDE RECORDS SUMMARY | 2023-12-28 16:16 | XMS_ITS | Clinical Summary ---
Author Organization [facility] Address [address] [place] [address] Care Team Providers Care Research Administrator Name Role Phone Patrice Brandt MD Primary Care Provider [phone] Social History Tobacco Use Types Packs/Day Years Used Date Smoking Tobacco: Never Assessed Sex and Gender Information Value Date Recorded Sex Assigned at Not on file Gender Identity Not on file Sexual Orientation Not on file Plan of Treatment Health Maintenance Due Date Last Done Comments COVID-19 Vaccine (2022-24 season) 2022 RSV Immunization ( o r 60+ Years) (1 - 1-dose 60+ series) 2023 Hepatitis C Screen Completed 08/10/2019 Procedures Procedure Name Priority Date/Time Associated Diagnosis Comments HEPATITIS C AB W REFLEX TO HCV RNA BY PCR Routine 08/10/2019 10:00 EDT from Last 3 Months or Most Recently Relevant to Health Maintenance Results * HEPATITIS C AB W REFLEX TO HCV RNA BY PCR (08/10/2019 10:00 EDT) Hep C Antibody Negative Negative 08/14/2019 10:53 EDT [facility] Blood VENOUS BLOOD / Unknown 08/10/2019 10:00 EDT 08/11/2019 15:59 EDT Provider Outr Resulting Lab CHEMISTRY & BLOOD GAS ORDERABLES [facility] [address] [place] [address] from Last 3 Months or Most Recently Relevant to Health Maintenance Care Teams Research Administrator Relationship Specialty Start Date End Date Patrice Brandt MD [address] [place] [phone] [facility] - General 03/06/09
--- OUTSIDE RECORDS SUMMARY | 2023-12-28 16:16 | XMS_ITS | Encounter Summary ---
Author Organization [facility] Address [address] [place] [address] Care Team Providers Care Photocomposing Keyboard Operator Name Role Phone Patrice Brandt MD Primary Care Provider [phone] Encounter Details Date Type Department Care Team (Late st Contact Info) Description 07/15/2023 Lab Requisition [facility] Pathology & Laboratory Medicine - [address] [address] Keon Rico MD [address] [place] [address] [phone] Encounter for other general examination Social History [...] Procedure Name Priority Date/Time Associated Diagnosis Comments SURGICAL PATHOLOGY Today 07/15/2023 8: 26 EDT Encounter for other general examination documented in this encounter Results * SURGICAL PATHOLOGY (07/15/2023 8:26 EDT) Note to Patient The following pathology results have been interpreted by your pathologist and may be available to you before your health provider has had the opportunity to review them. Please allow time for your provider to receive these results and explore management options, if applicable. 07/20/2023 11:41 T [facility] Final Diagnosis A. SOFT TISSUE, RIGHT BUCCAL, EXCISION: - Pleomorphic adenoma. - 2.4 cm in greatest dimension. - Tumor extends to inked surgical margin. 07/20/2023 11:41 [facility] Attestation By the signature below, the attending physician certifies that they have 1) personally conducted a gross and/or microscopic examination of the described specimen(s), and/or personally interpreted the results of laboratory testing of the described specimen(s), and 2) personally rendered or confirmed the above diagnosis. 07/20/2023 11:41 [facility] at 1141 Clinical History Right buccal pleomorphic adenoma 07/20/2023 11:41 [facility] Gross Description A. Received in formalin labelled with proper patient identification (initials C, D) and right buccal pleomorphic adenoma is a 2.6 g ovoid soft tissue mass, 2.4 x 1.6 x 1.6 cm. The outer surfaces are intact, smooth to disrupted. The intact surfaces are inked. Sections reveal a dull white cut surface. Areas of hemorrhage or necrosis are not identified. Received in the same container is an aggregate of similar burciaga brown tissue, 1.2 x 1.0 x 0.4 cm. The specimen is entirely submitted as follows: BLOCK MARKHAM A1-A4- lobulated tissue mass, consecutive sections A5- separately submitted tissue CARLEE DANGELO(ASCP) 07/16/2023 12:24 07/20/2023 11:41 [facility] Performing Lab [facility] 07/20/2023 11:41 [facility] Scanned Images 07/20/2023 11:41 [facility] Tissue SOFT TISSUE / Unknown 07/15/2023 8:26 EDT 07/16/2023 9:27 EDT Keon Rico MD PATHOLOGY ORDERA BLES [facility] [address] [place] [address] documented in this encounter Visit Diagnoses Diagnosis Encounter for other general examination documented in this encounter Care Teams Photocomposing Keyboard Operator Relationship Specialty Start Date End Date Patrice Brandt MD [address] [id number] PCP - General 03/06/09 documented as of this encounter
--- OUTSIDE RECORDS SUMMARY | 2023-12-28 16:16 | XMS_ITS | Encounter Summary ---
Author Organization [facility] Address [address] [place] [address] Care Team Providers Care Digital Designer Name Role Phone Patrice Brandt MD Primary Care Provider [phone] Encounter Details Date Type Department Care Team (Late st Contact Info) Description 02/20/2020 Lab Requisition [facility] Pathology & Laboratory Medicine - [address] [id number] Outr Resulting Lab, Provider Social History Tobacco [...] ORDER STANDALONE - BROAD COVID TEST Today 02/20/2020 8:37 EST COVID-19 TESTING Routine 02/20/2020 8:37 EST documented in this encounter Results * DO NOT ORDER STANDALONE - BROAD COVID TEST (02/20/2020 8:37 EST) COVID-19 rt-PCR Result NEGATIVE Negative 02/22/2020 20:27 EST [facility] Comment: 2019-novel Coronavirus [...] in accordance with CLIA regulations, [employer] [place] [employer] [employer] ([employer]) guidelines (May 25, 2019), and FDA guidance (May 06, 2019). This test is only for use under the Food and Drug Administration's Emergency Use Authorization. Swab ENTIRE NASOPHARYNX / Unknown 02/20/2020 8:37 EST 02/20/2020 16:29 EST Provider Outr Resulting Lab MICROBIOLOGY - GENERAL ORDERABLES [place] * COVID-19 TESTING (02/20/2020 8:37 EST) COVID-19 rt-PCR Result NEGATIVE Negative 02/22/2020 21:34 EST [facility] Comment: 2019-novel Coronavirus (2019-nCoV) not detected [...] in accordance with CLIA regulations, [employer] [place] [employer] ([employer]) guidelines (May 25, 2019), and FDA guidance (May 06, 2019). This test is only for use under the Food and Drug Administration's Emergency Use Authorization. Performing Lab [facility] 02/22/2020 21:34 EST [facility] Swab 02/20/2020 8:37 EST 02/20/2020 16:29 EST Provider Outr Resulting Lab MICROBIOLOGY - GENERAL ORDERABLES [facility] [address] LABORATORY [place], [place] documented in this encounter Visit Diagnoses Not on filedocumented in this encounter Care Teams Digital Designer Relationship Specialty Start Date End Date Patrice Brandt MD [address] [facility] [address] [place] [id number] PCP - General 03/06/09 documented as of this encounter
--- OUTSIDE RECORDS SUMMARY | 2023-12-28 16:16 | XMS_ITS | Continuity of Care Document ---
Author Organization [facility] Address [address] [place] [address] Care Team Providers Care Navigating Officer Name Role Phone Nya Hernandez Primary Care Physician [phone] Encounter [facility] Date(s): 07/17/23 - 07/17/[address] [address] Encounter Diagnosis Right facial swelling(Discharge Diagnosis) - 07/17/23 Facial abscess(Discharge Diagnosis) - 07/17/23 Attending Physician: Ludin López MD Admitting Physician: Ludin López MD Allergies, Adverse Reactions, Alerts Substance Reaction Severity Status doxycycline Skin rash Unknown Active acetaminophen-hydrocodone Skin rash Unknown Ac tive sulfADIAZINE Skin rash Unknown Active Bactrim Unknown Active AmLODIPine Besylate 1 Severe Active 1Leg and feet swelling, severe Assessment and Plan Extracted from: Title:Clinical Document Author:Gaby eMndoza te:07/17/23 Diagnosis: 1. Right facial s welling Comment: Diagnosis: 2. Facial abscess Comment: Diagnosis: Swollen face Comment: Extracted from: Title:ED Provider Note Author:Ludin López MD Date:07/17/23 Assessment/Plan 1.??Right facial swelling??R22.0 Ordered: amoxicillin-clavulanate 875 mg-125 mg oral tablet, 1 tab, Oral, every 12 hr, X 7 days, # 14 tab, 0 Refill(s), 07/24/23 10:32:00 EDT, Pharmacy: [id number], 160, cm, 07/15/23 7:03:00 EDT, Height, 102, kg, 07/15/23 7:30:00 EDT, Weight Dosing Discharge Patient, 07/17/23 10:32:00 EDT, Home Independently, Constant Indicator ED Visit Follow Up [facility], Orders for future visit, 07/17/23 10:32:00 EDT 1-2 day follow-up in office for facial swelling, Right facial swelling Facial abscess ?? 2.??Facial abscess??L02.01 Ordered: amoxicillin-clavulanate 875 mg-125 mg oral tablet, 1 tab, Oral, every 12 hr, X 7 days, # 14 tab, 0 Refill(s), 07/24/23 10:32:00 EDT, Pharmacy: [id number], 160, cm, 07/15/23 7:03:00 EDT, Height, 102, kg, 07/15/23 7:30:00 EDT, Weight Dosing Discharge Patient, 07/17/23 10:32:00 EDT, Home Independently, Constant Indicator ED Visit Follow Up [facility], Orders for future visit, 07/17/23 10:32:00 EDT 1-2 day follow-up in office for facial swelling, Right facial swelling Facial abscess ?? Orders: Anaerobe Culture/Smear, Other [facility], Micro Specimen, Stat Collect, 07/17/23 10:30:00 EDT, Once, Nurse collect, Print Label, right sided face abscess Patient Education Skin Abscess Follow Up With When Contact Information Follow up with specialist Within 1 to 2 days Additional Instructions: General surgery Extracted from: Title:Consult Note Author:Jerardo Ruiz DO Date:07/17/23 Ordered: Wound Culture, Abscess, Face, Stat collect, ST - Stat, 07/17/23 10:03:00 EDT, Once, Nurse collect, Print Label Right Buccal abscess- this appeared isolated to right cheek with no extension in the retropharyngeal space on CT scan face. - Patient tolerated needle aspiration well and reported significant improvement in pain. Wound cultures were sent. Patient can be discharged on course of Augmentin and follow up with surgery early next week. Suspect the swelling will improve in due time now that abscess has been drained. Future Appointments Diagnostic Tests Pending * Anaerobe Culture/Smear, Other [facility] 07/17/23 Immunizations Given and Recorded Vaccine Date Status Refusal Reason pneumococcal 13-valent conjugate vaccine 05/27/16 Recorded pneumococcal 23-polyvalent vaccine 07/02/15 Record ed Medications albuterol 90 mcg/inh aerosol inhaler 0 Refill(s) Start Date: 10/29/21 Status: Ordered amoxicillin-clavulanate 875 mg-125 mg oral tablet 1 tab, Oral, every 12 hr, X 7 days, # 14 tab, 0 Refill(s), 07/24/23 9:32:00 AM CDT, Pharmacy: [facility]156, 160, cm, 07/15/23 7:03:00 EDT, Height, 102, kg, 07/15/23 7:30:00 EDT, Weight Dosing Start Date: 07/17/23 Stop Date: 07/24/23 Status: Ordered aspirin 81 mg oral delayed [...] 0 Refill(s) Start Date: 10/29/21 Status: Ordered oxyCODONE 5 mg oral tablet 5 mg = 1 tab, Oral, every 6 hr, PRN as needed for pain, # 10 tab, 0 Refill(s), 07/26/23 9:38:00 AM CDT Start Date: 07/17/23 Stop Date: 07/26/23 Status: Ordered pantoprazole 40 mg oral delayed release tablet 0 Refill(s) Start Date: 10/29/21 Status: Ordered Peridex 0.12% mucous membrane liquid 0.018 g 15 mL, Oral, BID, swish and spit; do not swallow, # 210 mL, 0 Refill(s), Pharmacy: [id number], 160, cm, 07/15/23 7:03:00 [...] 0 Refill(s) Start Date: 02/15/23 Status: Ordered traMADol 50 mg oral tablet 50 mg = 1 tab, Oral, every 6 hr, PRN as needed for pain, X 7 days, # 7 tab, 0 Refill(s), 07/22/23 7:58:00 AM CDT, Pharmacy: [id number], 160, cm, 07/15/23 7:03:00 EDT, Height, 102, kg, 07/15/23 7:30:00 EDT, Weight Dosing Start Date: 07/15/23 Stop Date: 07/22/23 Status: Ordered traZODone 50 mg oral tablet [...] length of defect(s); grea 06/01/22 Completed Stent 2 2021 Completed Amputated at lower thigh 2020 Completed Closure of vesicouterine fis nicholas; with hysterectomy 1989 Completed 1Transoral excision of pleomorphic adenoma 2heart attack 3due to blood clot Results Laboratory List Name Date Automated Diff 07/17/23 CBC w/ Diff 07/17/23 Comprehensive Metabolic Panel (CMP) 07/16 Lactic Acid 07/17/23 Most recent to oldest [Reference Range]: 1 WBC [5.0-10.0 x10^3/mcL] 14.2 x10^3/mcL *HI* (07/17/23 7:20 AM) RBC [4.1-5.3 x10^6/mcL] 5.2 x10^6/mcL (07/17/23 7:20 AM) Neutro Auto [40.0-75.0 %] 73.4 % (07/17/23 7:20 AM) Lymph Auto [20.0-50.0 %] 14.4 % *LOW* (07/17/23: AM) Carson Auto [2.0-15.0 %] 6.8 % (07/17/23 7:20 AM) Basophil Auto [0.0-1.0 %] 0.7 % (07/17/23 7:20 AM) BUN [7-18 mg/dL] 13 mg/dL (07/17/23: AM) Glucose Level [74-106 mg/dL] 129 mg/dL *HI* (07/17/23 7:20 AM) Potassium Level [3.5-5.1 mmol/L] 3.9 mmo l/L (07/17/23 7:20 AM) MCV [80.0-96.0 fL] 90.9 fL (07/17/23 7:20 AM) AST [15-37 unit/L] 13 unit/L *LOW* (07/17/23: AM) ALT [14-59 unit/L] 27 unit/L (07/17/23 7:20 AM) MCHC [31.0-35.0 g/dL] 32.8 g/dL (07/17/23 7:20 AM) Sodium Level [136-145 mmol/L] 143 mmol/L (07/17/23 7:20 AM) Hct [37.0-47.0 %] 46.9 % (07/17/23 7:20 AM) Calcium Level [8.5-10.1 mg/dL] 9.3 mg/dL (07/17/23 7:20 AM) Albumin Level [3.4-5.0 g/dL] 3.4 g/dL (07/17/23 7:20 AM) Protein Total [6.4-8.2 g/dL] 7.3 g/dL (07/17/23 7:20 AM) MCH [26.0-32.0 pg] 29.8 pg (07/17/23 7:20 AM) Neutro Absolute 10.4 x10^3/mcL *NA* (07/17/23 7:20 AM) Bilirubin Total [0.2-1.0 mg/dL] 1.1 mg/d L *HI* (07/17/23 7:20 AM) Hgb [12.0-16.0 g/dL] 15.4 g/dL (07/17/23 7:20 AM) Alk Phos [46-146 unit/L] 128 unit/L (07/17/23 7:20 AM) Platelets [130-450 x10^3/mcL] 360 x10^3/ mcL (07/17/23 7:20 AM) CO2 [21-32 mmol/L] 27 mmol/L (07/17/23 7:20 AM) Lactic Acid Lvl [0.7-2.0 mmol/L] 0.9 mmo l/L (07/17/23 7:20 AM) eGFR Non-AA [>=60] 97 (07/17/23 7:20 AM) eGFR AA [>=60] 97 (07/17/23 7:20 AM) Chloride Level [98-107 mmol/L] 104 mmol/ L (07/17/23 7:20 AM) RDW-CV [11.5-14.5 %] 13.9 % (07/17/23 7:20 AM) Imm Gran Auto [0.0-0.9 %] 0.6 % (07/17/23 7:20 AM) Creatinine Level [0.55-1.02 mg/dL] 0.71 mg/dL (07/17/23 7:20 AM) Eos, Auto [1.0-6.0 %] 4.1 % (07/17/23 7:20 AM) Orders for Microbiology Reports Name Date Wound Culture 07/17/23 Microbiology Reports TEST:Wound Culture STATUS:Order in Progress BODY SITE:Face SOURCE:Abscess COLLECTED DATE/TIME:07/17/23 10:00 AM STAIN REPORT Many White Blood Cells Moderate Red Blood Cells Rare Gram Positive Cocci Few epithelial cells Vital Signs Most recent to oldest [Reference Range]: 1 2 3 Temperature Tympanic [36.6-38.1 Deg C] 36 Deg C *LOW* (07/17/23 7:06 AM) Peripheral Pulse Rate [60-100 bpm] 73 bpm (07/17/23 10:09 AM) 67 bpm (07/17/23 9:51 AM) 68 bpm (07/17/23 9:30 AM) Heart Rate Monitored [60-100 bpm] 72 bpm (07/17/23 10:09 AM) 68 bpm (07/17/23 9:51 AM) 67 bpm (07/17/23 9:30 AM) Respiratory Rate [12-24 br/min] 23 br/min (07/17/23 10:09 AM) 22 br/min (07/17/23 9:51 AM) 17 br/min (07/17/23 9:30 AM) Blood Pressure [90-140/60-90 mmHg] 136/68mmHg (07/17/23 8:06 AM) 141/73mmHg *HI* (07/17/23 7:06 AM) Mean Arterial Pressure, Cuff [65-140 mmHg] 91 mmHg (07/17/23 8:06 AM) 96 mmHg (07/17/23 7:06 AM) Weight Estimated 102 kg (07/17/23 7:06 AM) Body Mass Index Estimated 39.84 kg/m2 (07/17/23 7:06 AM) Height/Length Estimated 160 cm (07/17/23 7:06 AM) Social History Social History Type Response Tobacco Former tobacco user Tobacco Use:. 1 Sex Female 1quit over a month ago Hospital Discharge Instructions Patient Education 07/17/2023 09:33:57 Skin Abscess Skin Abscess A skin abscess is an infected area on or under your skin. It contains pus and other material. An abscess may also be called a furuncle, carbuncle, or boil. It is often the result of an infection caused by bacteria. An abscess can occur in or on almost any part of your body. Sometimes, an abscess may break open (rupture) on its own. In most cases, it will keep getting worse unless it is treated. An abscess can cause pain and make you feel ill. An untreated abscess can cause infection to spread to other parts of your body or your bloodstream. The abscess may need to be drained. You may also need to take antibiotics. What are the causes? An abscess occurs when germs, like bacteria, pass through your skin and cause an infection. This may be caused by: ??? A scrape or cut on your skin. ??? A puncture wound through your skin, such as a needle injection or insect bite. ??? Blocked oil or sweat glands. ??? Blocked and infected hair follicles. ??? A fluid-filled sac that forms beneath your skin (sebaceous cyst) and becomes infected. What increases the risk? You may be more likely to develop an abscess if: ??? You have problems with blood circulation, or you have a weak body defense system (immune system). ??? You have diabetes. ??? You have dry and irritated skin. ??? You get injections often or use IV drugs. ??? You have a foreign body in a wound, such as a splinter. ??? You smoke or use tobacco products. What are the signs or symptoms? Symptoms of this condition include: ??? A painful, firm bump under the skin. ??? A bump with pus at the top. This may break through the skin and drain. Other symptoms include: ??? Redness and swelling around the abscess. ??? Warmth or tenderness. ??? Swelling of the lymph nodes (glands) near the abscess. ??? A sore on the skin. How is this diagnosed? This condition may be diagnosed based on a physical exam and your medical history. You may also have tests done, such as: ??? A test of a sample of pus. This may be done to find what is causing the infection. ??? Blood tests. ??? Imaging tests, such as an ultrasound, CT scan, or MRI. How is this treated? A small abscess that drains on its own may not need to be treated. Treatment for larger abscesses may include: ??? Moist heat or a heat pack applied to the area a few times a day. ??? Incision and drainage. This is a procedure to drain the abscess. ??? Antibiotics. For a severe abscess, you may first get antibiotics through an IV and then change to antibiotics by mouth. Follow these instructions at home: Medicines ??? Take [id number] and prescription medicines only as told by your provider. ??? If you were prescribed antibiotics, take them as told by your provider. Do not stop using the antibiotic even if you start to feel better. Abscess care ??? If you have an abscess that has not drained, apply heat to the affected area. Use the heat source that your provider recommends, such as a moist heat pack or a heating pad. ??? Place a towel between your skin and the heat source. ??? Leave the heat on for 20???30 minutes at a time. ??? If your skin turns bright red, remove the heat right away to prevent gutierrez. The risk of gutierrez is higher if you cannot feel pain, heat, or cold. ??? Follow instructions from your provider about how to take care of your abscess. Make sure you: ??? Cover the abscess with a bandage (dressing). ??? Wash your hands with soap and water for at least 20 seconds before and after you change the dressing or gauze. If soap and water are not available, use hand spinner tender. ??? Change your dressing or gauze as told by your provider. ??? Check your abscess every day for signs of an infection that is getting worse. Check for: ??? More redness, swelling, pain, or tenderness. ??? More fluid or blood. ??? Warmth. ??? More pus or a worse smell. General instructions ??? To avoid spreading the infection: ??? Do not share personal care items, towels, or hot tubs with others. ??? Avoid making skin contact with other people. ??? Be careful when getting rid of used dressings, wound packing, or any drainage from the abscess. ??? Do not use any products that contain nicotine or tobacco. These products include cigarettes, chewing tobacco, and vaping devices, such as e-cigarettes. If you need help quitting, ask your provider. ??? Do not use any creams, ointments, or liquids unless you have been told to by your provider. Contact a health care provider if: ??? You see redness that spreads quickly or red streaks on your skin spreading away from the abscess. ??? You have any signs of worse infection at the abscess. ??? You vomit every time you eat or drink. ??? You have a fever, chills, or muscle aches. ??? The cyst or abscess returns. Get help right away if: ??? You have severe pain. ??? You make less pee (urine) than normal. This information is not intended to replace advice given to you by your health care provider. Make sure you discuss any questions you have with your health care provider. Document Revised: 10/07/2022 Document Reviewed: 10/07/2022 [employer] Patient Education ?? 2022 [employer]. Follow Up Care 07/17/2023 07:04:15 With:Follow up with specialist Address: When:1 to 2 days Comments:General surgery Consult note * Jerardo Ruiz DO: PERFORM Event Display: Consultation Note Generic Authored Date: [id number] ADAIR KONG :1965 Age:58 years Sex:Female Visit Date:07/17/2023 Primary Care Physician: Nya Hernandez NP Chief Complaint Pt reports tumor surgically removed from cheek Wednesday, now has swelling to right side of face and in throat. Pt reports difficulty swalowing w/ pain. Reason for Consultation Right facial swelling History of Present Illness Patient had right buccal pleomorphic adenoma removed and developed increasing swelling andpain in her right check and neck. She states that pain got worse so she came in and she was having trouble swallowing. She has no trouble breathing. She can tolerate her secretions. Her main concern was the swelling and pain. Denies fevers. She has been taking her eliquis. Review of Systems see HPI Physical Exam Vitals & Measurements T:??36?C ??(Tympanic)?? HR:??67??(Peripheral)?? HR:??68??(Monitored)?? RR:??22?? BP:??136/68?? SpO2:??95%?? HT:??160??cm?? WT:??102??kg??(Estimated)?? BMI:??39.84?? Pain Score:??10?? O2 Therapy:??Room air?? NAD, cooperative ?? Non labored breathing ?? RR ?? Soft, NT, ND ?? Right facial swelling that extends to right lower eye lid, there is a moderate amount of bruising. Right check with induration and area of fluctuance. INtraoral examination with palpation revealedindurate tissues, suture intact. Assessment/Plan Ordered: Wound Culture, Abscess, Face, Stat collect, ST - Stat, 07/17/23 10:03:00 EDT, Once, Nurse collect, Print Label Right Buccal abscess- this appeared isolated to right cheek with no extension in the retropharyngeal space on CT scan face. - Patient tolerated needle aspiration well and reported significant improvement in pain. Wound cultures were sent. Patient can be discharged on course of Augmentin and follow up with surgery early next week. Suspect the swelling will improve in due time now that abscess has been drained. Images CT face reviewed July 16 Problem List/Past Medical History Ongoing Acute non-ST segment elevation myocardial infarction Acute pulmonary embolism Acute renal failure with oliguria Amputated above knee Anxiety disorder Bilateral pleural effusion Blood in urine Breast lump Chronic obstructive lung disease Coronary arteriosclerosis Dyspnea Essential hypertension Gastroesophageal reflux disease without esophagitis Hernia of anterior abdominal wall Hypertensive disorder Hypothyroidism Insomnia Lesion of oral mucosa Localized edema Low back pain Morbid obesity Myocardial infarction Peripheral arterial disease Prediabetes Restless legs Salivary gland neoplasm Ulcer of duodenum Viscus structure finding Historical Acute sinusitis Asthma Nicotine dependence Shoulder joint pain Procedure/Surgical History ???Surgical procedure (07/15/2023)???Endoscopic retrograde cholangiopancreatography (ERCP); with sphincterotomy/papillotomy (07/25/2022)???Repair of anterior abdominal hernia(s) (ie, epigastric, incis ional, ventral, umbilical, spigelian), any approach (ie, open, laparoscopic, robotic), initial, including implantation of mesh or other prosthesis when performed, total length of defect(s); grea (06/01/2022)???Stent (2021)???Amputated at lower thigh (2020)???Closure of vesicouterine fistula; with hysterectomy (1989) Medications Inpatient Unasyn Home albuterol 90 mcg/inh aerosol inhaler aspirin 81 mg oral delayed release tablet, 81 mg= 1 tab, Oral, Daily atorvastatin 80 mg oral tablet clopidogrel 75 mg oral tablet Colace Eliquis 5 mg oral tablet escitalopram 10 mg oral tablet, 10 mg= 1 tab, Oral, Daily furosemide 20 mg oral tablet gabapentin 300 mg oral capsule levothyroxine 50 mcg (0.05 mg) oral tablet losartan 50 mg oral tablet methocarbamol 500 mg oral tablet nitroglycerin 0.4 mg sublingual tablet pantoprazole 40 mg oral delayed release tablet Peridex 0.12% mucous membrane liquid, 0.018 g= 15 mL, Oral, BID polyethylene glycol 3350, Oral Protonix 40 mg oral delayed release tablet, 40 mg= 1 tab, Oral, Daily Proventil HFA traMADol 50 mg oral tablet, 50 mg= 1 tab, Oral, every 6 hr, PRN traZODone 50 mg oral tablet Trelegy Ellipta 100 mcg-62.5 mcg-25 mcg/inh inhalation powder Allergies AmLODIPine Besylate Bactrim acetaminophen-hydrocodone??(Skin rash) doxycycline??(Skin rash) sulfADIAZINE??(Skin rash) Social History Alcohol Past- Comments: Quit about 3 months ago Electronic Cigarette/Vaping Electronic Cigarette Use: Never. Home/Environment Living situation: Home with assistance. Substance Use Never Tobacco Former tobacco user Tobacco Use:.- Comments: quit over a month ago Family History Breast cancer: Mother.Negative: Father. Cancer: Mother and Father. Diabetes mellitus: Father. Heart attack: Father. Heart disease: Father. Immunizations Vaccine Date Status pneumococcal 13-valent conjugate vaccine 05/27/2016 Recorded pneumococcal 23-polyvalent vaccine 07/02/2015 Recorded Electronically Signed on 07/17/23 10:12 AM YuniorJerardo Deleon DO Physician Emergency department Note * Ludin óLpez MD: PERFORM Event Display: ED Note Physician Authored Date: [id number] ADAIR KONG :1965 Age:58 years Sex:Female Visit Date:07/17/2023 Primary Care Physician: Nya Hernandez NP Basic Information Time Seen: Ludin López MD / 07/17/2023 07:04 Chief Complaint Pt reports tumor surgically removed from cheek Wednesday, now has swelling to right side of face and in throat. Pt reports difficulty swalowing w/ pain. History Of Present Illness: 58-year-old female past medical history of pulmonary embolism on Eliquis, COPD, [place], peripheral vascular disease, reflux??presents with right-sided facial pain and swelling after having a??parotid gland adenoma removed with general surgery 2 days ago. ??No fevers, neck stiffness,??dyspnea, or any other symptoms. Review of Systems: Right-sided facial swelling, pain Physical Exam Vitals & Measurements T:??36?C ??(Tympanic)?? HR:??73??(Peripheral)?? HR:??72??(Monitored)?? RR:??23?? BP:??136/68?? SpO2:??98%?? HT:??160??cm?? WT:??102??kg??(Estimated)?? BMI:??39.84?? Pain Score:??10?? O2 Therapy:??Room air?? Patient is speaking normally with normal phonation, no acute clinical distress, no respiratory distress, has full range of motion of the neck??without any pain, incision??appears closed, no active bleeding. ??There is some swelling noted intraorally on palpation intraorally on the right side of thecheek??with what feels??to be some fluctuance. ??Patient clinically has facial asymmetry with right-sided facial swelling extending into the infraorbital region in the right eye Medical Decision Makin-year-old female??past medical history as above presents for right-sided facial pain and swelling. ??36, 141/73, 80, 16, 94%.?? Patient clinically has evidence of visual right-sided facial swellingcompared to the left,??incision intraorally appears closed, there appears to be some area of fluctuance along the??intraoral palpation exam.?? She has a leukocytosis of 14.?? Lactate is normal.?? 36,141/73, 80, 16, 94%. ??No evidence of sepsis.?? Patient is able to swallow and is not having any dyspnea.?? CT maxillofacial bones with contrast showed??air-fluid collection in the soft tissues of the right face 3 x 2 x 2 cm, could be an abscess or hematoma or seroma.?? Spoke with on-call general surgeon Dr. Kurtz,??he came to do a needle aspiration under ultrasound guidance in the ER,??fluid sample was sent to the??lab, will need follow-up. ??In the meantime she was given some IV fluid and Unasyn here in the ER, will place on Augmentin, given strict return precautions ED, will need surgery follow-up in 1 to 2 days. Procedure No Qualifying Data Assessment/Plan 1.??Right facial swelling??R22.0 Ordered: amoxicillin-clavulanate 875 mg-125 mg oral tablet, 1 tab, Oral, every 12 hr, X 7 days, # 14 tab, 0 Refill(s), 07/24/23 10:32:00 EDT, Pharmacy: [facility], 160, cm, 07/15/23 7:03:00 EDT, Height, 102, kg, 07/15/23 7:30:00 EDT, Weight Dosing Discharge Patient, 07/17/23 10:32:00 EDT, Home Independently, Constant Indicator ED Visit Follow Up [facility], Orders for future visit, 07/17/23 10:32:00 EDT 1-2 day follow-up in office for facial swelling, Right facial swelling Facial abscess ?? 2.??Facial abscess??L02.01 Ordered: amoxicillin-clavulanate 875 mg-125 mg oral tablet, 1 tab, Oral, every 12 hr, X 7 days, # 14 tab, 0 Refill(s), 07/24/23 10:32:00 EDT, Pharmacy: [facility], 160, cm, 07/15/23 7:03:00 EDT, Height, 102, kg, 07/15/23 7:30:00 EDT, Weight Dosing Discharge Patient, 07/17/23 10:32:00 EDT, Home Independently, Constant Indicator ED Visit Follow Up [facility], Orders for future visit, 07/17/23 10:32:00 EDT 1-2 day follow-up in office for facial swelling, Right facial swelling Facial abscess ?? Orders: Anaerobe Culture/Smear, Other [facility], Micro Specimen, Stat Collect, 07/17/23 10:30:00 EDT, Once, Nursecollect, Print Label, right sided face abscess Patient Education Skin Abscess Follow Up With When Contact Information Follow up with specialist Within 1 to 2 days Additional Instructions: General surgery Medication Reconciliation New Prescription amoxicillin-clavulanate (amoxicillin-clavulanate 875 mg-125 mg oral tablet)1 tab Oral (given by mouth) every 12 hours for 7 Days. Refills: 0. ?? Unchanged albuterol (albuterol 90 mcg/inh aerosol inhaler) ?? albuterol (Proventil HFA) ?? apixaban (Eliquis 5 mg oral tablet) ?? aspirin (aspirin 81 mg oral delayed release tablet)1 tab Oral (given by mouth) every day. ?? atorvastatin (atorvastatin 80 mg oral tablet) ?? chlorhexidine topical (Peridex 0.12% mucous membrane liquid)15 Milliliters Oral (given by mouth) 2 times a day for 7 Days. swish and spit; do not swallow. Refills: 0. ?? clopidogrel (clopidogrel 75 mg oral tablet) ?? docusate (Colace) ?? escitalopram (escitalopram 10 mg oral tablet)1 tab Oral (given by mouth) every day. ?? fluticasone/umeclidinium/vilanterol (Trelegy Ellipta 100 mcg-62.5 mcg-25 [...] 40 mg oral delayed release tablet) ?? pantoprazole (Protonix 40 mg oral delayed release tablet)1 tab Oral (given by mouth) every day. ?? polyethylene glycol 3350Oral (given by mouth). 17 Unknown, 1 Refill(s), Take 17 g by mouth daily.. ?? traMADol (traMADol 50 mg oral tablet)1 tab Oral (given by mouth) every 6 hours as needed as needed for pain for 7 Days. Refills: 0. ?? traZODone (traZODone 50 mg oral tablet) Problem List/Past Medical History Ongoing Acute non-ST segment elevation myocardial infarction Acute pulmonary embolism Acute renal failure with oliguria Amputated above knee Anxiety disorder Bilateral pleural effusion Blood in urine Breast lump Chronic obstructive lung disease Coronary arteriosclerosis Dyspnea Essential hypertension Gastroesophageal reflux disease without esophagitis Hernia of anterior abdominal wall Hypertensive disorder Hypothyroidism Insomnia Lesion of oral mucosa Localized edema Low back pain Morbid obesity Myocardial infarction Peripheral arterial disease Prediabetes Restless legs Salivary gland neoplasm Ulcer of duodenum Viscus structure finding Historical Acute sinusitis Asthma Nicotine dependence Shoulder joint pain Procedure/Surgical History ???Surgical procedure (07/15/2023)???Endoscopic retrograde cholangiopancreatography (ERCP); with sphincterotomy/papillotomy (07/25/2022)???Repair of anterior abdominal hernia(s) (ie, epigastric, incis ional, ventral, umbilical, spigelian), any approach (ie, open, laparoscopic, robotic), initial, including implantation of mesh or other prosthesis when performed, total length of defect(s); grea (06/01/2022)???Stent (2021)???Amputated at lower thigh (2020)???Closure of vesicouterine fistula; with hysterectomy (1989) Medication Administration Given NS bolus, 500 mL, Hydration Bolus oxyCODONE 5 mg oral tablet, 5 mg, Oral Tylenol, 1000 mg, IV Piggyback Unasyn, IV Piggyback Allergies AmLODIPine Besylate Bactrim acetaminophen-hydrocodone??(Skin rash) doxycycline??(Skin rash) sulfADIAZINE??(Skin rash) Social History Alcohol Past- Comments: Quit about 3 months ago Electronic Cigarette/Vaping Electronic Cigarette Use: Never. Home/Environment Living situation: Home with assistance. Substance Use Never Tobacco Former tobacco user Tobacco Use:.- Comments: quit over a month ago Family History Breast cancer: Mother.Negative: Father. Cancer: Mother and Father. Diabetes mellitus: Father. Heart attack: Father. Heart disease: Father. Referral Orders ED Visit Follow Up [facility], Orders for future visit, 07/17/23 10:32:00 EDT 1-2 day follow-up in office for facial swelling, Right facial swelling Facial abscess Lab Results CBC and Differential?? LATEST RESULTS?? HISTORICAL RESULTS?? WBC?? 07/17/23 07:20?? 14.2 ??High?? 02/16/23?? 9.8?? RBC?? 07/17/23 07:20?? 5.2?? 02/16/23?? 5.3?? Hgb?? 07/17/23 07:20?? 15.4?? 02/16/23?? 13.7?? Hct?? 07/17/23 07:20?? 46.9?? 02/16/23?? 43.9?? MCV?? 07/17/23 07:20?? 90.9?? 02/16/23?? 83.3?? MCH?? 07/17/23 07:20?? 29.8?? 02/16/23?? 26.0?? MCHC?? 07/17/23 07:20?? 32.8?? 02/16/23?? 31.2?? RDW-CV?? 07/17/23 07:20?? 13.9?? 02/16/23?? 15.1 ??High?? Platelets?? 07/17/23 07:20?? 360?? 04/20/23?? 408?? Neutro Auto?? 07/17/23 07:20?? 73.4?? 11/08/22?? 64.7?? Lymph Auto?? 07/17/23 07:20?? 14.4 ??Low?? 11/08/22?? 19.8 ??Low?? Carson Auto?? 07/17/23 07:20?? 6.8?? 11/08/22?? 8.6?? Eos, Auto?? 07/17/23 07:20?? 4.1?? 11/08/22?? 5.1?? Basophil Auto?? 07/17/23 07:20?? 0.7?? 11/08/22?? 1.1 ??High?? Imm Gran Auto?? 07/17/23 07:20?? 0.6?? 11/08/22?? 0.7?? Neutro Absolute?? 07/17/23 07:20?? 10.4?? 11/08/22?? 6.7? Routine Chemistry?? LATEST RESULTS?? HISTORICAL RESULTS?? Sodium Level?? 07/17/23 07:20?? 143?? 04/20/23?? 141?? Potassium Level?? 07/17/23 07:20?? 3.9?? 04/20/23?? 4.1?? Chloride Level?? 07/17/23 07:20?? 104?? 04/20/23?? 103?? CO2?? 07/17/23 07:20?? 27?? 04/20/23?? 30?? Alk Phos?? 07/17/23 07:20?? 128?? 04/20/23?? 120?? AST?? 07/17/23 07:20?? 13 ??Low?? 04/20/23?? 15?? ALT?? 07/17/23 07:20?? 27?? 04/20/23?? 30?? BUN?? 07/17/23 07:20?? 13?? 04/20/23?? 16?? Glucose Level?? 07/17/23 07:20?? 129 ??High?? 04/20/23?? 111 ??High?? Creatinine Level?? 07/17/23 07:20?? 0.71?? 04/20/23?? 0.73?? eGFR AA?? 07/17/23 07:20?? 97?? 04/20/23?? 94?? eGFR Non-AA?? 07/17/23 07:20?? 97?? 04/20/23?? 94?? Calcium Level?? 07/17/23 07:20?? 9.3?? 04/20/23?? 9.0?? Protein Total?? 07/17/23 07:20?? 7.3?? 04/20/23?? 7.0?? Albumin Level?? 07/17/23 07:20?? 3.4?? 04/20/23?? 3.4?? Bilirubin Total?? 07/17/23 07:20?? 1.1 ??High?? 04/20/23?? 0.8?? Lactic Acid Lvl?? 07/17/23 07:20?? 0.9?? 03/17/22?? 1.1? Electronically Signed on 07/17/23 10:34 AM Ludin López MD Emergency department Discharge instructions * Ludin López MD: PERFORM Event Display: ED Discharge Information Authored Date: [id number] ADAIR KONG :1965 Age:58 years Sex:Female Visit Date:07/17/2023 Primary Care Physician: Nya Hernandez GRADING SUPERVISOR Discharge Instructions We would like to thank you for allowing us to assist you with your healthcare needs. The following includes patient education materials and information regarding your injury/illness. Diagnosis from Today's Visit Right facial swelling Facial abscess Discharge Vitals Temperature??(Tympanic) 96.8 ??F (36 ??C) Heart Rate??(Peripheral) 73 Heart Rate??(Monitored) 72 Respiratory Rate?? 23 Blood Pressure?? 136/68?? SpO2?? 98% Height?? 62.99 in (160 cm) Weight??(Estimated) 224.91 lb (102 kg) BMI?? 39.84 Allergies AmLODIPine Besylate Bactrim acetaminophen-hydrocodone??(Skin rash) doxycycline??(Skin rash) sulfADIAZINE??(Skin rash) What to Do Next Instructions from Your Care Team You were seen in the emergency department today for right-sided facial pain. ??Your CAT scan showeda fluid collection in the right side of the face which was drained by the general surgeon here in the ER, fluid culture is pending. ??This may reflect either a hematoma or an abscess??or fluid collection after surgery called a seroma.?? He will be placed on antibiotics in the meantime. ??Please come back to the ER with any worsening symptoms, otherwise follow-up with general surgery in the officein 1 to 2 days. You Need to Schedule the Following Appointments Follow Up with??Follow up with specialist When:??Within 1 to 2 days Why: General surgery Upcoming Scheduled Appointments Wednesday 9:30 AM EDT ?? With: Odilon Bridges PT, DPT Where: [facility] [address] [place] [address] Status: Confirmed Wednesday 10:20 AM EDT ?? With: Kervin Alejandre MD Where: [facility] [address] [place] [address] Status: Confirmed Wednesday 10:00 AM EDT ?? With: Keon Rico MD Where: [facility] [address] [place] [address] Status: Confirmed You were treated today on [...] Much When Why Instructions Next Dose New amoxicillin-clavulanate (amoxicillin-clavulanate 875 mg-125 mg oral tablet) 1 tab Oral (given by mouth) Every 12 hours Right facial swelling Facial abscess Duration: 7 Days Pickup at [facility] Unchanged albuterol (albuterol 90 mcg/ inh aerosol inhaler) Unchanged albuterol (Proventil HFA) Unchanged apixaban (Eliquis 5 mg oral tablet) Unchanged aspirin (aspirin 81 mg oral delayed release tablet) 1 tab Oral (given by mouth) Every day Unchanged atorvastatin (atorvastatin 80 mg oral tablet) Unchanged chlorhexidine topical (Peridex 0.12% mucous membrane liquid) 15 Milliliters Oral (given by mouth) 2 times a day Duration: 7 Days swish and spit; do not swallow ?? Unchanged clopidogrel (clopidogrel 75 mg oral tablet) Unchanged docusate (Colace) Unchanged escitalopram (escitalopram 10 mg oral tablet) 1 tab Oral (given by mouth) Every day Unchanged fluticasone/ umeclidinium/ vilanterol (Trelegy Ellipta 100 [...] 40 mg oral delayed release tablet) Unchanged pantoprazole (Protonix 40 mg oral delayed release tablet) 1 tab Oral (given by mouth) Every day Unchanged polyethylene glycol 3350 Oral (given by mouth) 17 Unknown, 1 Refill(s), Take 17 g by mouth daily. ?? Unchanged traMADol (traMADol 50 mg oral tablet) 1 tab Oral (given by mouth) Every 6 hours as needed for as needed for pain postop pain Duration: 7 Days Unchanged traZODone (traZODone 50 mg oral tablet) Pharmacy Information [facility] 4156: [address] [place] [address] [phone] Education Materials Skin Abscess A skin abscess is an infected area on or under your skin. It contains pus and other material. An abscess may also be called a furuncle, carbuncle, or boil. It is often the result of an infection caused by bacteria. An abscess can occur in or on almost any part of your body. Sometimes, an abscess may break open (rupture) on its own. In most cases, it will keep getting worse unless it is treated. An abscess can cause pain and make you feel ill. An untreated abscess can cause infection to spread to other parts of your body or your bloodstream. The abscess may need to be drained. You may also need to take antibiotics. What are the causes? An abscess occurs when germs, like bacteria, pass through your skin and cause an infection. This may be caused by: ? A scrape or cut on your skin. ? A puncture wound through your skin, such as a needle injection or insect bite. ? Blocked oil or sweat glands. ? Blocked and infected hair follicles. ? A fluid-filled sac that forms beneath your skin (sebaceous cyst) and becomes infected. What increases the risk? You may be more likely to develop an abscess if: ? You have problems with blood circulation, or you have a weak body defense system (immune system). ? You have diabetes. ? You have dry and irritated skin. ? You get injections often or use IV drugs. ? You have a foreign body in a wound, such as a splinter. ? You smoke or use tobacco products. What are the signs or symptoms? Symptoms of this condition include: ? A painful, firm bump under the skin. ? A bump with pus at the top. This may break through the skin and drain. Other symptoms include: ? Redness and swelling around the abscess. ? Warmth or tenderness. ? Swelling of the lymph nodes (glands) near the abscess. ? A sore on the skin. How is this diagnosed? This condition may be diagnosed based on a physical exam and your medical history. You may also have tests done, such as: ? A test of a sample of pus. This may be done to find what is causing the infection. ? Blood tests. ? Imaging tests, such as an ultrasound, CT scan, or MRI. How is this treated? A small abscess that drains on its own may not need to be treated. Treatment for larger abscesses may include: ? Moist heat or a heat pack applied to the area a few times a day. ? Incision and drainage. This is a procedure to drain the abscess. ? Antibiotics. For a severe abscess, you may first get antibiotics through an IV and then change to antibiotics by mouth. Follow these instructions at home: Medicines ? Take [id number] and prescription medicines only as told by your provider. ? If you were prescribed antibiotics, take them as told by your provider. Do not stop using the antibiotic even if you start to feel better. Abscess care ? If you have an abscess that has not drained, apply heat to the affected area. Use the heat source that your provider recommends, such as a moist heat pack or a heating pad. ? Place a towel between your skin and the heat source. ? Leave the heat on for 20???30 minutes at a time. ? If your skin turns bright red, remove the heat right away to prevent gutierrez. The risk of gutierrez is higher if you cannot feel pain, heat, or cold. ? Follow instructions from your provider about how to take care of your abscess. Make sure you: ? Cover the abscess with a bandage (dressing). ? Wash your hands with soap and water for at least 20 seconds before and after you change the dressing or gauze. If soap and water are not available, use hand spinner tender. ? Change your dressing or gauze as told by your provider. ? Check your abscess every day for signs of an infection that is getting worse. Check for: ? More redness, swelling, pain, or tenderness. ? More fluid or blood. ? Warmth. ? More pus or a worse smell. General instructions ? To avoid spreading the infection: ? Do not share personal care items, towels, or hot tubs with others. ? Avoid making skin contact with other people. ? Be careful when getting rid of used dressings, wound packing, or any drainage from the abscess. ? Do not use any products that contain nicotine or tobacco. These products include cigarettes, chewing tobacco, and vaping devices, such as e-cigarettes. If you need help quitting, ask your provider. ? Do not use any creams, ointments, or liquids unless you have been told to by your provider. Contact a health care provider if: ? You see redness that spreads quickly or red streaks on your skin spreading away from the abscess. ? You have any signs of worse infection at the abscess. ? You vomit every time you eat or drink. ? You have a fever, chills, or muscle aches. ? The cyst or abscess returns. Get help right away if: ? You have severe pain. ? You make less pee (urine) than normal. This information is not intended to replace advice given to you by your health care provider. Make sure you discuss any questions you have with your health care provider. Document Revised: 10/07/2022 Document Reviewed: 10/07/2022 Elsevier Patient Education ?? 2022 [employer] Tests Performed Medications and Immunizations Administered Given NS bolus, 500 mL, Hydration Bolus oxyCODONE 5 mg oral tablet, 5 mg, Oral Tylenol, 1000 mg, IV Piggyback Unasyn, IV Piggyback Lab Test Name Test Result Date/Time WBC 14.2 x10^3/mcL 07/17/2023 07:20 EDT RBC 5.2 x10^6/mcL 07/17/2023 07:20 EDT Hgb 15.4 g/dL 07/17/2023 07:20 EDT Hct 46.9 % 07/17/2023 07:20 EDT MCV 90.9 fL 07/17/2023 07:20 EDT MCH 29.8 pg 07/17/2023 07:20 EDT MCHC 32.8 g/dL 07/17/2023 07:20 EDT RDW-CV 13.9 % 07/17/2023 07:20 EDT Platelets 360 x10^3/mcL 07/17/2023 07:20 EDT Neutro Auto 73.4 % 07/17/2023 07:20 EDT Lymph Auto 14.4 % 07/17/2023 07:20 EDT Carson Auto 6.8 % 07/17/2023 07:20 EDT Eos, Auto 4.1 % 07/17/2023 07:20 EDT Basophil Auto 0.7 % 07/17/2023 07:20 EDT Imm Gran Auto 0.6 % 07/17/2023 07:20 EDT Neutro Absolute 10.4 x10^3/mcL 07/17/2023 07:20 EDT Sodium Level 143 mmol/L 07/17/2023 07:20 EDT Potassium Level 3.9 mmol/L 07/17/2023 07:20 EDT Chloride Level 104 mmol/L 07/17/2023 07:20 EDT CO2 27 mmol/L 07/17/2023 07:20 EDT Alk Phos 128 unit/L 07/17/2023 07:20 EDT AST 13 unit/L 07/17/2023 07:20 EDT ALT 27 unit/L 07/17/2023 07:20 EDT BUN 13 mg/dL 07/17/2023 07:20 EDT Glucose Level 129 mg/dL 07/17/2023 07:20 EDT Creatinine Level 0.71 mg/dL 07/17/2023 07:20 EDT eGFR AA 97 07/17/2023 07:20 EDT eGFR Non-AA 97 07/17/2023 07:20 EDT Calcium Level 9.3 mg/dL 07/17/2023 07:20 EDT Protein Total 7.3 g/dL 07/17/2023 07:20 EDT Albumin Level 3.4 g/dL 07/17/2023 07:20 EDT Bilirubin Total 1.1 mg/dL 07/17/2023 07:20 EDT Lactic Acid Lvl 0.9 mmol/L 07/17/2023 07:20 EDT Patient/X Ray Equipment Servicer Signature Patient Name:ADAIR KONG I have received this information and my questions have been answered. Patient/X Ray Equipment Servicer Name: Patient/X Ray Equipment Servicer Signature: Relationship to Patient: Witness Name/Signature: Date: Electronically Signed on: 07/17/2023 10:34 EDTSigned by:[facility] Emergency department Note * Gaby Mendoza: PERFORM Event Display: ED Notes Authored Date: Discharge summary * Gaby Mendoza: PERFORM Event Display: Discharge Note Authored Date: * Gaby Mendoza: PERFORM Event Display: Discharge Note Authored Date: Diagnosis: 1. Right facial swelling Comment: Diagnosis: 2. Facial abscess Comment: Diagnosis: Swollen face Comment: Electronically Signed on 07/17/23 11:06 AM Gaby Mendoza Patient Care team information Care Team Personnel Name: Nya Hernandez GRADING SUPERVISOR Position: PowerChart View Only Member Role: Primary Care Physician Address: Address: [address] [place] [id number] Care Team Related Persons Name: TANG KONG Address: Home [address], [id number]
--- OUTSIDE RECORDS SUMMARY | 2023-12-28 16:16 | XMS_ITS | Referral Summary ---
Author Organization [facility] Address [address] [place] [id number] Care Team Providers Care Airplane Cabin Attendant Name Role Phone Patrice Brandt MD Primary Care Provider [phone] Social History Tobacco Use Types Packs/Day Years Used Date Smoking Tobacco: Never Assessed Sex and Gender Information Value Date Recorded Sex Assigned at Not on file Gender Identity Not on file Sexual Orientation Not on file Plan of Treatment Not on file Procedures Procedure Name Priority Date/Time Associated Diagnosis Comments HEPATITIS C AB W REFLEX TO HCV RNA BY PCR Routine 08/10/2019 10:00 EDT from Last 3 Months or Most Recently Relevant to Health Maintenance Results * HEPATITIS C AB W REFLEX TO HCV RNA BY PCR (08/10/2019 10:00 EDT) Hep C Antibody Negative Negative 08/14/2019 10:53 EDT [facility] Blood VENOUS BLOOD / Unknown 08/10/2019 10:00 EDT 08/11/2019 15:59 EDT Provider Outr Resulting Lab CHEMISTRY & BLOOD GAS ORDERABLES [facility] [address] [place] [address] from Last 3 Months or Most Recently Relevant to Health Maintenance Care Teams Airplane Cabin Attendant Relationship Specialty Start Date End Date Patrice Brandt MD [address] [place] [phone] PCP - General 03/06/09
--- OUTSIDE RECORDS SUMMARY | 2023-12-28 16:16 | XMS_ITS | Continuity of Care Document ---
Author Organization [facility] Address [address] [place] [address] Care Team Providers Care Building Specialist Name Role Phone Marco Dyer Priscila Primary Care Physician Encounter [facility] Date(s): 04/20/23 - 04/20/[address] [id number] Discharge Disposition: Home or Self Care Attending Physician: Keon Rico MD Admitting Physician: Keon Rico MD Referring Physician: Nya Hernandez BINDING FOLDER MACHINE Allergies, Adverse Reactions, Alerts Substance Reaction Severity Status doxycycline Skin rash Unknown Active acetaminophen-hydrocodone Skin rash Unknown Ac tive sulfADIAZINE Skin rash Unknown Active Bactrim Unknown Active AmLODIPine Besylate 1 Severe Active 1Leg and feet swelling, severe Assessment and Plan Future Appointments Future Scheduled Tests Radiology* US Fine Needle Aspiration w/ Guidance 04/08/23 Immunizations Given and Recorded Vaccine Date Status [...] blood clot Results Laboratory List Name Date Comprehensive Metabolic Panel 04/20/23 Hemoglobin A1c 04/20/23 PT/ INR 04/20/23 Platelet Count 04/20/23 Most recent to oldest [Reference Range]: 1 Prothrombin Time [9.0-11.0 seconds] 10.9 seconds (04/20/23 8:22 AM) INR 1.1 1 *NA* (04/20/23 8:22 AM) BUN [7-18 mg/dL] 16 mg/dL (04/20/23 8:22 AM) Glucose Level [74-106 mg/dL] 111 mg/dL *HI* (04/20/23 8:22 AM) Potassium Level [3.5-5.1 mmol/L] 4.1 mmo l/L (04/20/23 8:22 AM) AST [15-37 unit/L] 15 unit/L (04/20/23 8:22 AM) ALT [14-59 unit/L] 30 unit/L (04/20/23 8: AM) Sodium Level [136-145 mmol/L] 141 mmol/L (04/20/23 8: AM) Calcium Level [8.5-10.1 mg/dL] 9.0 mg/dL (04/20/23 8:22 AM) Albumin Level [3.4-5.0 g/dL] 3.4 g/dL (04/20/23 8: AM) Protein Total [6.4-8.2 g/dL] 7.0 g/dL (04/20/23 8: AM) Bilirubin Total [0.2-1.0 mg/dL] 0.8 mg/d L (04/20/23 8: AM) Alk Phos [46-146 unit/L] 120 unit/L (04/20/23: AM) Platelets [130-450 x10^3/mcL] 408 x10^3/ mcL (04/20/23 8:22 AM) CO2 [21-32 mmol/L] 30 mmol/L (04/20/23 8:22 AM) eGFR Non-AA [>=60] 94 (04/20/23: AM) eGFR AA [>=60] 94 (04/20/23 8: AM) Hemoglobin A1c [4.0-5.6 %] 5.4 % 2 (04/20/23: AM) Chloride Level [98-107 mmol/L] 103 mmol/ L (04/20/23: AM) Creatinine Level [0.55-1.02 mg/dL] 0.73 mg/dL (04/20/23 8:22 AM) 1Interpretive Data: INR 2-2.5 Prophylaxis: Short term DVT INR 2-3 Prophylaxis: hip and femur surgery Therapy: DVT (3 mos) PE (3-6 mos) TIA (traffic operations manager) Atr Fib (traffic operations manager) Syst. emb post CO Mitral Stenosis with emboli (penitentiary) Tissue prosthetic valves (3 mos min) INR 3-4.5 Therapy: recurrent DVT, PE (penitentiary) Prosthetic heart valves (penitentiary) 2Interpretive Data: New test method effective 04-06-23. Establishment of new HA1c baseline is recommended. The following A1c interpretive data reflect the 2017 [place] Diabetes Association (ADA) guidelinesand will be reported with each A1c result: Normal: <5.7% Prediabetes: 5.7 - 6.4% Diagnostic for diabetes (if confirmed): ???6.5% Social History Social History Type Response Tobacco Former tobacco user Tobacco Use:. 1 Sex Female 1quit over a month ago Patient Care team information Care Team Personnel Name: Nya Hernandez BINDING FOLDER MACHINE Position: PowerChart View Only Member Role: Informed Provider Address: Address: [address] [place] [address]- [place] Name: Marco Dyer MD Position: Physician Member Role: Primary Care Physician Address: Address: [address] [place] [phone] Care Team Related Persons Name: KONG TANG Address: Home [address] [id number]
--- OUTSIDE RECORDS SUMMARY | 2023-12-28 16:16 | XMS_ITS | Encounter Summary ---
Author Organization [facility] Address [address] [place] [address] Care Team Providers Care Contact Center Engineer Name Role Phone Patrice Brandt MD Primary Care Provider [phone] Encounter Details Date Type Department Care Team (Late st Contact Info) Description 08/11/2019 Lab Requisition [facility] Pathology & Laboratory Medicine - [facility] [address] [place], [place] [address] Outr Resulting Lab, Provider Social History Tobacco [...] RNA BY PCR Routine 08/10/2019 10:00 EDT HEPATITIS A TOTAL ANTIBODY W REFLEX Routine 08/10/2019 10:00 EDT HEPATITIS B SURFACE ANTIBODY Routine 08/10/2019 10:00 EDT documented in this encounter Results * HEPATITIS B SURFACE ANTIBODY (08/10/2019 10:00 EDT) Hep B Surface Ab, Quantitative <3.1 See Note mIU/mL 08/14/2019 9:52 EDT [facility] Comment: Reference Range for Hep B Surface Ab, Quant: Positive: >= 10.0 mIU/mL Negative: ??< 10.0 mIU/mL Patient is presumed to not be immune to infection with Hepatitis B Virus. Hep B Surface Ab, Qualitative Negative See Note 08/14/2019 9:52 EDT [facility] Comment: Reference Range for Hep B Surface Ab, Qual: Unvaccinated: ??Negative Vaccinated: ??Positive Blood VENOUS BLOOD / Unknown 08/10/2019 10:00 EDT 08/11/2019 15:58 EDT Provider Outr Resulting Lab CHEMISTRY & BLOOD GAS ORDERABLES Performing Organization Address City/[facility]/ZIP Co de Phone Number [facility] [address] [place] [address] * HEPATITIS C AB W REFLEX TO HCV RNA BY PCR (08/10/2019 10:00 EDT) Hep C Antibody Negative Negative 08/14/2019 10:53 EDT [facility] Blood VENOUS BLOOD / Unknown 08/10/2019 10:00 EDT 08/11/2019 15:59 EDT Provider Outr Resulting Lab CHEMISTRY & BLOOD GAS ORDERABLES Performing Organization Address [facility] de Phone Number [facility] [address] [place] [address] * HEPATITIS A TOTAL ANTIBODY W REFLEX (08/10/2019 10:00 EDT) Hepatitis A Antibody, Total Negative Negative 08/14/2019 12:04 EDT [facility] Blood VENOUS BLOOD / Unknown 08/10/2019 10:00 EDT 08/11/2019 15:58 EDT Narrative [facility] - 08/14/2019 12:04 EDT The result of this assay can be falsely elevated (Positive) due to the consumption of Biotin. Provider Outr Resulting Lab CHEMISTRY & BLOOD GAS ORDERABLES Performing Organization Address [facility] Co de Phone Number [facility] [address] [place] [address] documented in this encounter Visit Diagnoses Not on filedocumented in this encounter Care Teams Contact Center Engineer Relationship Specialty Start Date End Date Patrice Brandt MD [address] [phone] PCP - General 03/06/09 documented as of this encounter
--- OUTSIDE RECORDS SUMMARY | 2023-12-28 16:16 | XMS_ITS | Encounter Summary ---
Author Organization [facility] Address [address] [place] [address] Care Team Providers Care Plastic Molding Operator Name Role Phone Patrice Brandt MD Primary Care Provider [phone] Encounter Details Date Type Department Care Team (Late st Contact Info) Description 03/14/2020 Lab Requisition [facility] Pathology & Laboratory Medicine - [address] [address] Outr Resulting Lab, Provider Social History Tobacco [...] Procedure Name Priority Date/Time Associated Diagnosis Comments ZZCOVID-19 TEST [facility] LAB PCR Today 03/14/2020 8:56 EST COVID-19 TESTING Routine 03/14/2020 8:56 EST documented in this encounter Results * COVID-19 TEST [facility] LAB PCR (03/14/2020 8:56 EST) Swab ENTIRE NASOPHARYNX / Unknown 03/14/2020 8:56 EST 03/14/2020 16:14 EST Provider Outr Resulting Lab MICROBIOLOGY - GENERAL ORDERABLES [facility] [address] [place] [address] * COVID-19 TESTING (03/14/2020 8:56 EST) COVID-19 rt-PCR Result Negative Negative 2020 21:07 EST [facility] Comment: Negative results do not preclude 2019-nCoV infection and should not be used as the sole basis for treatment or other patient management decisions. Negative results must be combined with clinical observations, patient history, and epidemiological information. This test was developed and its performance characteristics determined by [facility]. It has not been cleared or approved by the US Food and Drug Administration. FDA does not require this test to go through premarket FDA review. This test is used for clinical purposes. It should not be regarded as investigational or for research. This laboratory is certified under the Clinical Laboratory Improvement Amendments (CLIA) as qualified to perform high complexity clinical laboratory testing. This test is based on the CDC COVID-19 Emergency Use Authorization (EUA) assay, with minor modification as defined by the FDA Performed on the [employer] Flex. Performing Lab [facility] Lab 2020 21:07 EST [facility] Swab 03/14/2020 8:56 EST 03/14/2020 16:14 EST Provider Outr Resulting Lab MICROBIOLOGY - GENERAL ORDERABLES [facility] [address] [place] [address] documented in this encounter Visit Diagnoses Not on filedocumented in this encounter Care Teams Plastic Molding Operator Relationship Specialty Start Date End Date Patrice Brandt MD [address] [id number] PCP - General 03/06/09 documented as of this encounter
--- OUTSIDE RECORDS SUMMARY | 2023-12-28 16:16 | XMS_ITS | Continuity of Care Document ---
Author Organization [facility] Address [address] [place] [address] Care Team Providers Care Electron Microscopist Name Role Phone Nya Hernandez Primary Care Physician Encounter [facility] [id number] Date(s): 07/21/23 - 07/21/[address] [address] Encounter Diagnosis Cough(Discharge Diagnosis) - 07/21/23 Discharge Disposition: Home or Self Care Attending Physician: Keon Rico MD Admitting Physician: Keon Rico MD Referring Physician: Keon Rico MD Allergies, Adverse Reactions, Alerts Substance Reaction Severity Status doxycycline Skin rash Unknown Active acetaminophen-hydrocodone Skin rash Unknown Ac tive sulfADIAZINE Skin rash Unknown Active AmLODIPine Besylate 1 Severe Active Bactrim Unknown Active 1Leg and feet swelling, severe Assessment [...] 0 Refill(s), 07/24/23 9:32:00 AM CDT, Pharmacy: [id number], 160, cm, 07/15/23 [...] swallow, # 210 mL, 0 Refill(s), Pharmacy: [id number], 160, cm, 07/15/23 [...] information Care Team Personnel Name: Nya Hernandez [employer]PER[employer] Position: PowerChart View Only Member Role: Primary Care Physician Address: Address: [address] [place] [address]- Care Team Related Persons Name: TANG KONG Address: Home [address] [id number]
--- OUTSIDE RECORDS SUMMARY | 2023-12-28 16:17 | XMS_ITS | Continuity of Care Document ---
Author Organization [facility] Address [address] [place] [address] Care Team Providers Care Inspector [employer] Wafer Name Role Phone Nya Hernandez Primary Care Physician [phone] Encounter [facility] [id number] Date(s): 08/01/23 - 08/01/23 [facility] [address] [place] [address] Encounter Diagnosis Nonspecific chest pain(Discharge Diagnosis) - 08/01/23 Chest wall pain(Discharge Diagnosis) - 08/01/23 Discharge Disposition: Home or Self Care Attending Physician: Janice Diaz MD Admitting Physician: Janice Diaz MD Allergies, Adverse Reactions, Alerts Substance Reaction Severity Status doxycycline Skin rash Unknown Active acetaminophen-hydrocodone Skin rash Unknown Ac tive sulfADIAZINE Skin rash Unknown Active AmLODIPine Besylate 1 Severe Active Bactrim Unknown Active 1Leg and feet swelling, severe Assessment and Plan Extracted from: Title:ED Provider Note Author:Hay Rehman MD Date:08/01/23 Assessment/Plan 1.??Nonspecific chest pain??R07.9 ??This seems to be very much reproducible chest pain to palpation??labs are reassuring as is chest x-ray. ??Have asked patient to follow-up with her primary care provider to see how this pain is??going??and discuss whether further??cardiac stress testing should be done.?? From physical exam I do expect that this is strained muscles??for the patient??as this seems to be so reproducible??by palpation.?? Patient will try heat or ice to the area will try tjkn-rhz-xqjpevq muscle rubs to see if this is helpful. Ordered: Discharge Patient, 08/01/23 21:17:00 EDT, Home Independently, Constant Indicator ?? 2.??Chest wall pain??R07.89 ??See above Ordered: Discharge Patient, 08/01/23 21:17:00 EDT, Home Independently, Constant Indicator ?? Orders: XR Chest 1 View, 08/01/23 20:27:00 EDT, Stat, Reason: pain, Transport Mode: Stretcher, Exam to be performed outside organization? Patient Education Chest Wall Pain Nonspecific Chest Pain, Adult Follow Up With When Contact Information Follow up with primary care provider Within 1 to 2 weeks Additional Instructions: Future Appointments Immunizations Given and Recorded Vaccine Date Status Refusal Reason pneumococcal 13-valent conjugate vaccine 05/27/16 Recorded pneumococcal 23-polyvalent vaccine 07/02/15 Record ed Medications albuterol 90 mcg/inh aerosol inhaler 0 Refill(s) Start Date: 10/29/21 Status: Ordered amoxicillin-clavulanate 875 mg-125 mg oral tablet 1 tab, Oral, every 12 hr, # 10 tab, 0 Refill(s), Pharmacy: [id number], 160, cm, 247:03:00 EDT, Height, 102, kg, 07/15/23 7:30:00 EDT, [...] Daily, # 270 tab, 3 Refill(s), Pharmacy: [id number], 160.02, cm, 07/27/23 [...] clot Results Laboratory List Name Date CBC w/ Diff 08/01/23 Comprehensive Metabolic Panel 08/01/23 D-Dimer 08/01/23 NT- Pro BNP 08/01/23 Troponin-I 08/01/23 Automated Diff 08/01/23 Most recent to oldest [Reference Range]: 1 WBC [5.0-10.0 x10^3/mcL] 13.9 x10^3/mcL *HI* (08/01/23 7:40 PM) RBC [4.1-5.3 x10^6/mcL] 5.1 x10^6/mcL (08/01/23 7:40 PM) Neutro Auto [40.0-75.0 %] 66.1 % (08/01/23 7:40 PM) Lymph Auto [20.0-50.0 %] 21.7 % (08/01/23 7:40 PM) [place] Auto [2.0-15.0 %] 6.8 % (08/01/23 7:40 PM) Basophil Auto [0.0-1.0 %] 1.0 % (08/01/23 7:40 PM) BUN [7-18 mg/dL] 18 mg/dL (08/01/23 7:40 PM) Glucose Level [74-106 mg/dL] 98 mg/dL (08/01/23 7:40 PM) Potassium Level [3.5-5.1 mmol/L] 3.9 mmo l/L (08/01/23 7:40 PM) MCV [80.0-96.0 fL] 90.0 fL (08/01/23 7:40 PM) AST [15-37 unit/L] 14 unit/L *LOW* (08/01/23 7:40 PM) ALT [14-59 unit/L] 30 unit/L (08/01/23 7:40 PM) MCHC [31.0-35.0 g/dL] 32.8 g/dL (08/01/23 7:40 PM) Troponin-I [0.0-51.4 pg/mL] 6.4 pg/mL (08/01/23 7:40 PM) Sodium Level [136-145 mmol/L] 136 mmol/L (08/01/23 7:40 PM) Hct [37.0-47.0 %] 45.7 % (08/01/23 7:40 PM) Calcium Level [8.5-10.1 mg/dL] 8.9 mg/dL (08/01/23 7:40 PM) Albumin Level [3.4-5.0 g/dL] 3.6 g/dL (08/01/23 7:40 PM) Protein Total [6.4-8.2 g/dL] 7.2 g/dL (08/01/23 7:40 PM) MCH [26.0-32.0 pg] 29.5 pg (08/01/23 7:40 PM) Neutro Absolute 9.2 x10^3/mcL *NA* (08/01/23 7:40 PM) Bilirubin Total [0.2-1.0 mg/dL] 0.6 mg/d L (08/01/23 7:40 PM) Hgb [12.0-16.0 g/dL] 15.0 g/dL (08/01/23 7:40 PM) Alk Phos [46-146 unit/L] 132 unit/L (08/01/23 7:40 PM) Platelets [130-450 x10^3/mcL] 415 x10^3/ mcL (08/01/23 7:40 PM) CO2 [21-32 mmol/L] 29 mmol/L (08/01/23 7:40 PM) eGFR Non-AA [>=60] 82 (08/01/23 7:40 PM) eGFR AA [>=60] 82 (08/01/23 7:40 PM) NT-proBNP [0-125 pg/mL] 152 pg/mL *HI* (08/01/23 7:40 PM) Chloride Level [98-107 mmol/L] 101 mmol/ L (08/01/23 7:40 PM) RDW-CV [11.5-14.5 %] 13.9 % (08/01/23 7:40 PM) Imm Gran Auto [0.0-0.9 %] 0.9 % (08/01/23 7:40 PM) Slide Review Not Indicated (08/01/23:40 PM) Creatinine Level [0.55-1.02 mg/dL] 0.82 mg/dL (08/01/23 7:40 PM) D Dimer, (Quant.) [0.00-0.50 mg/L] <0.19 mg/L 1 (08/01/23 7:40 PM) Eos, Auto [1.0-6.0 %] 3.5 % (08/01/23 7:40 PM) 1Interpretive Data: Exclusion of PE: Effective November 25, 2011 a new D-Dimer assay [[employer]] is being implemented, this test has a [...] Temperature Temporal Artery [36-38 Deg C ] 35.9 Deg C *LOW* (08/01/23 7:14 PM) Peripheral Pulse Rate [60-100 bpm] 55 bp m *LOW* (08/01/23 7:14 PM) Respiratory Rate [12-24 br/min] 25 br/mi n *HI* (08/01/23 7:14 PM) Blood Pressure [90-140/60-90 mmHg] 140/5 7mmHg (08/01/23 7:14 PM) Mean Arterial Pressure, Cuff [65-140 mmH g] 85 mmHg (08/01/23 7:14 PM) Weight 103 kg (08/01/23 7:14 PM) Weight Dosing 103.000 kg (08/01/23 7:14 PM) Social History Social History Type Response Tobacco Former tobacco user Tobacco Use:. 1 Sex Female 1quit over a month ago Hospital Discharge Instructions Patient Education 08/01/2023 20:17:28 Chest Wall Pain Chest Wall Pain Chest wall pain is pain in or around the bones and muscles of your chest. Sometimes, an injury causes this pain. Excessive coughing or overuse of arm and chest muscles may also cause chest wall pain.Sometimes, the cause may not be known. This pain may take several weeks or longer to get better. Follow these instructions at home: Managing pain, stiffness, and swelling ??? If directed, put ice on the painful area: ??? Put ice in a plastic bag. ??? Place a towel between your skin and the bag. ??? Leave the ice on for 20 minutes, 2???3 times per day. Activity ??? Rest as told by your health care provider. ??? Avoid activities that cause pain. These include any activities that use your chest muscles or your abdominal and side muscles to lift heavy items. Ask your health care provider what activities are safe for you. General instructions ??? Take tqnw-pki-hboocma and prescription medicines only as told by your health care provider. ??? Do not use any products that contain nicotine or tobacco, such as cigarettes, e-cigarettes, andchewing tobacco. These can delay healing after injury. If you need help quitting, ask your health care provider. ??? Keep all follow-up visits as told by your health care provider. This is important. Contact a health care provider if: ??? You have a fever. ??? Your chest pain becomes worse. ??? You have new symptoms. Get help right away if: ??? You have nausea or vomiting. ??? You feel sweaty or light-headed. ??? You have a cough with mucus from your lungs (sputum) or you cough up blood. ??? You develop shortness of breath. These symptoms may represent a serious problem that is an emergency. Do not wait to see if the symptoms will go away. Get medical help right away. Call your local emergency services (911 in the [place] Do not drive yourself to the hospital. Summary ??? Chest wall pain is pain in or around the bones and muscles of your chest. ??? Depending on the cause, it may be treated with ice, rest, medicines, and avoiding activities that cause pain. ??? Contact a health care provider if you have a fever, worsening chest pain, or new symptoms. ??? Get help right away if you feel light-headed or you develop shortness of breath. These symptomsmay be an emergency. This information is not intended to replace advice given to you by your health care provider. Make sure you discuss any questions you have with your health care provider. Document Revised: 05/06/2021 Document Reviewed: 05/09/2021 [employer] Patient Education ?? 2022 [employer] 08/01/2023 20:17:24 Nonspecific Chest Pain, Adult Nonspecific Chest Pain, Adult Chest pain is an uncomfortable, tight, or painful feeling in the chest. The pain can feel like a crushing, aching, or squeezing pressure. A person can feel a burning or tingling sensation. Chest paincan also be felt in your back, neck, jaw, shoulder, or arm. This pain can be worse when you move, sneeze, or take a deep breath. Chest pain can be caused by a condition that is life-threatening. This must be treated right away. It can also be caused by something that is not life- threatening. If you have chest pain, it can be hard to know the difference, so it is important to get help right away to make sure that you do not have a serious condition. Some life-threatening causes of chest pain include: ??? Heart attack. ??? A tear in the body's main blood vessel (aortic dissection). ??? Inflammation around your heart (pericarditis). ??? A problem in the lungs, such as a blood clot (pulmonary embolism) or a collapsed lung (pneumothorax). Some non life-threatening causes of chest pain include: ??? Heartburn. ??? Anxiety or stress. ??? Damage to the bones, muscles, and cartilage that make up your chest wall. ??? Pneumonia or bronchitis. ??? Shingles infection (varicella-zoster virus). Your chest pain may come and go. It may also be constant. Your health care provider will do tests and other studies to find the cause of your pain. Treatment will depend on the cause of your chest pain. Follow these instructions at home: Medicines ??? Take lddl-yby-femzjnn and prescription medicines only as told by your health care provider. ??? If you were prescribed an antibiotic medicine, take it as told by your health care provider. Donot stop taking the antibiotic even if you start to feel better. Activity ??? Avoid any activities that cause chest pain. ??? Do not lift anything that is heavier than 10 lb (4.5 kg), or the limit that you are told, untilyour health care provider says that it is safe. ??? Rest as directed by your health care provider. ??? Return to your normal activities only as told by your health care provider. Ask your health care provider what activities are safe for you. Lifestyle ??? Do not use any products that contain nicotine or tobacco, such as cigarettes, e-cigarettes, andchewing tobacco. If you need help quitting, ask your health care provider. ??? Do not drink alcohol. ??? Make healthy lifestyle changes as recommended. These may include: ??? Getting regular exercise. Ask your health care provider to suggest some exercises that are safefor you. ??? Eating a heart-healthy diet. This includes plenty of fresh fruits and vegetables, whole grains,low-fat (lean) protein, and low-fat dairy products. A dietitian can help you find healthy eating options. ??? Maintaining a healthy weight. ??? Managing any other health conditions you may have, such as high blood pressure (hypertension) or diabetes. ??? Reducing stress, such as with yoga or relaxation techniques. General instructions ??? Pay attention to any changes in your symptoms. ??? It is up to you to get the results of any tests that were done. Ask your health care provider, or the department that is doing the tests, when your results will be ready. ??? Keep all follow-up visits as told by your health care provider. This is important. ??? You may be asked to go for further testing if your chest pain does not go away. Contact a health care provider if: ??? Your chest pain does not go away. ??? You feel depressed. ??? You have a fever. ??? You notice changes in your symptoms or develop new symptoms. Get help right away if: ??? Your chest pain gets worse. ??? You have a cough that gets worse, or you cough up blood. ??? You have severe pain in your abdomen. ??? You faint. ??? You have sudden, unexplained chest discomfort. ??? You have sudden, unexplained discomfort in your arms, back, neck, or jaw. ??? You have shortness of breath at any time. ??? You suddenly start to sweat, or your skin gets clammy. ??? You feel nausea or you vomit. ??? You suddenly feel lightheaded or dizzy. ??? You have severe weakness, or unexplained weakness or fatigue. ??? Your heart begins to beat quickly, or it feels like it is skipping beats. These symptoms may represent a serious problem that is an emergency. Do not wait to see if the symptoms will go away. Get medical help right away. Call your local emergency services (911 in the [place] Do not drive yourself to the hospital. Summary ??? Chest pain can be caused by a condition that is serious and requires urgent treatment. It may also be caused by something that is not life-threatening. ??? Your health care provider may do lab tests and other studies to find the cause of your pain. ??? Follow your health care provider's instructions on taking medicines, making lifestyle changes, and getting emergency treatment if symptoms become worse. ??? Keep all follow-up visits as told by your health care provider. This includes visits for any further testing if your chest pain does not go away. This information is not intended to replace advice given to you by your health care provider. Make sure you discuss any questions you have with your health care provider. Document Revised: 05/06/2021 Document Reviewed: 05/08/2021 [employer] Patient Education ?? 2022 [employer]. Follow Up Care 08/01/2023 19:05:48 With:Follow up with primary care provider Address: When:1 to 2 weeks Physician Emergency department Note * Taylor Rehman MD: PERFORM Event Display: ED Note Physician Authored Date: ADAIR KONG :1965 Age:58 years Sex:Female Visit Date:08/01/2023 Primary Care Physician: Nya Hernandez NP Basic Information Time Seen: Taylor Rehman MD / 08/01/2023 19:10 Chief Complaint chest pain, midsternal that started this morning. also c/o left sided arm pain. pt. reports sweating, ankle swelling. Hx of stent placement, cholycystits. denies D/V or dizziness. reports shortness of breath all the time22 History Of Present Illness: chest pain left side radiating into the left arm since 0800am no other radiation, pressure + nauseano vomiting, + edema she reports of her left leg pt reports this is better today pt [place], +sob and diaphroesis. no urinating symptoms other than pt reports her urine has smelled like ammonia no dysuria no frequency no urgency, no diarrhea, pt with a cxr on 07/21/2023 unremarkable. pt reports she has to wear O2 at night.?? pt has a h/o peand NH.?? pt reports she had to be off of eliquis for a couple of weeks when she had her mouth surgery 07/15/2023.Patient was here with her granddaughter. Review of Systems: see hpi for ros Physical Exam Vitals & Measurements T:??35.9?C ??(Temporal Artery)?? HR:??55??(Peripheral)?? RR:??25?? BP:??140/57?? SpO2:??98%?? WT:??103??kg?? Pain Score:??8?? O2 Therapy:??Room air?? General: Alert and oriented, well nourished,?No??acute distress Eye: PER?Normal??conjunctiva,??No??scleral icterus HENT: Normocephalic,??nontraumatic??Normal hearing Lungs: diminshed throughout?? Non-labored?? respiration Heart:?Normal?? rate,?Regular??rhythm,?No??murmur,?No??gallop,?No??edema Chest: wall excursion wnl no abnormal movements no obvious deformities Abdomen: Soft, non-tender, non-distended, No??masses Musculoskeletal:?no pitting edema present on left lower extremity, dp pt 1+ Skin: Skin is warm, dry and pink,?No??rashes,?No??lesions Neurologic: Awake, alert and oriented X4 Psychiatric: Cooperative, appropriate mood and affect Medical Decision Making: For MDM please see under assessment and plan Procedure No Qualifying Data Assessment/Plan 1.??Nonspecific chest pain??R07.9 ??This seems to be very much reproducible chest pain to palpation??labs are reassuring as is chest x-ray. ??Have asked patient to follow-up with her primary care provider to see how this pain is??going??and discuss whether further??cardiac stress testing should be done.?? From physical exam I do expect that this is strained muscles??for the patient??as this seems to be so reproducible??by palpation.?? Patient will try heat or ice to the area will try umoi-dlh-spazcwm muscle rubs to see if this is helpful. Ordered: Discharge Patient, 08/01/23 21:17:00 EDT, Home Independently, Constant Indicator ?? 2.??Chest wall pain??R07.89 ??See above Ordered: Discharge Patient, 08/01/23 21:17:00 EDT, Home Independently, Constant Indicator ?? Orders: XR Chest 1 View, 08/01/23 20:27:00 EDT, Stat, Reason: pain, Transport Mode: Stretcher, Exam to be performed outside organization? Patient Education Chest Wall Pain Nonspecific Chest Pain, Adult Follow Up With When Contact Information Follow up with primary care provider Within 1 to 2 weeks Additional Instructions: Medication Reconciliation Unchanged albuterol (albuterol 90 mcg/inh aerosol inhaler) ?? albuterol (Proventil HFA) ?? amoxicillin-clavulanate (amoxicillin-clavulanate 875 mg-125 mg oral tablet)1 tab Oral (given by mouth) every 12 hours for 5 Days. Refills: 0. ?? apixaban (Eliquis 5 mg oral tablet) [...] MOUTH FOUR TIMES A DAY ASNEEDED. ?? metoprolol (metoprolol succinate 50 mg oral tablet, extended release)3 tab Oral (given by mouth) every day. Refills: 3. ?? nitroglycerin (nitroglycerin 0.4 mg sublingual tablet) [...] fistula; with hysterectomy (1989) Medication Administration Given aluminum hydroxide/magnesium hydroxide/simethicone 200 mg-200 mg-20 mg/5 mL oral suspension, 30 mL,Oral aspirin, 325 mg, Oral Allergies AmLODIPine Besylate Bactrim acetaminophen-hydrocodone??(Skin rash) doxycycline??(Skin [...] Father. Heart attack: Father. Heart disease: Father. Lab Results CBC and Differential?? LATEST RESULTS?? HISTORICAL RESULTS?? WBC?? 08/01/23 19:40?? 13.9 ??High?? 07/17/23?? 14.2 ??High?? RBC?? 08/01/23 19:40?? 5.1?? 07/17/23?? 5.2?? Hgb?? 08/01/23 19:40?? 15.0?? 07/17/23?? 15.4?? Hct?? 08/01/23 19:40?? 45.7?? 07/17/23?? 46.9?? MCV?? 08/01/23 19:40?? 90.0?? 07/17/23?? 90.9?? MCH?? 08/01/23 19:40?? 29.5?? 07/17/23?? 29.8?? MCHC?? 08/01/23 19:40?? 32.8?? 07/17/23?? 32.8?? RDW-CV?? 08/01/23 19:40?? 13.9?? 07/17/23?? 13.9?? Platelets?? 08/01/23 19:40?? 415?? 07/17/23?? 360?? Neutro Auto?? 08/01/23 19:40?? 66.1?? 07/17/23?? 73.4?? Lymph Auto?? 08/01/23 19:40?? 21.7?? 07/17/23?? 14.4 ??Low?? [place] Auto?? 08/01/23 19:40?? 6.8?? 07/17/23?? 6.8?? Eos, Auto?? 08/01/23 19:40?? 3.5?? 07/17/23?? 4.1?? Basophil Auto?? 08/01/23 19:40?? 1.0?? 07/17/23?? 0.7?? Imm Gran Auto?? 08/01/23 19:40?? 0.9?? 07/17/23?? 0.6?? Neutro Absolute?? 08/01/23 19:40?? 9.2?? 07/17/23?? 10.4?? Slide Review?? 08/01/23 19:40?? Not Indicated?? 11/08/22?? Morph Only? Coagulation?? LATEST RESULTS?? HISTORICAL RESULTS?? D Dimer, (Quant.)?? 08/01/23 19:40?? <0.19?? 11/08/22?? <0.19? Routine Chemistry?? LATEST RESULTS?? HISTORICAL RESULTS?? Sodium Level?? 08/01/23 19:40?? 136?? 07/17/23?? 143?? Potassium Level?? 08/01/23 19:40?? 3.9?? 07/17/23?? 3.9?? Chloride Level?? 08/01/23 19:40?? 101?? 07/17/23?? 104?? CO2?? 08/01/23 19:40?? 29?? 07/17/23?? 27?? Alk Phos?? 08/01/23 19:40?? 132?? 07/17/23?? 128?? AST?? 08/01/23 19:40?? 14 ??Low?? 07/17/23?? 13 ??Low?? ALT?? 08/01/23 19:40?? 30?? 07/17/23?? 27?? BUN?? 08/01/23 19:40?? 18?? 07/17/23?? 13?? Glucose Level?? 08/01/23 19:40?? 98?? 07/17/23?? 129 ??High?? Creatinine Level?? 08/01/23 19:40?? 0.82?? 07/17/23?? 0.71?? eGFR AA?? 08/01/23 19:40?? 82?? 07/17/23?? 97?? eGFR Non-AA?? 08/01/23 19:40?? 82?? 07/17/23?? 97?? Calcium Level?? 08/01/23 19:40?? 8.9?? 07/17/23?? 9.3?? Protein Total?? 08/01/23 19:40?? 7.2?? 07/17/23?? 7.3?? Albumin Level?? 08/01/23 19:40?? 3.6?? 07/17/23?? 3.4?? Bilirubin Total?? 08/01/23 19:40?? 0.6?? 07/17/23?? 1.1 ??High? Cardiac Isoenzymes?? LATEST RESULTS?? HISTORICAL RESULTS?? Troponin-I?? 08/01/23 19:40?? 6.4?? 11/08/22?? 9.5?? NT-proBNP?? 08/01/23 19:40?? 152 ??High? Electronically Signed on 08/01/2023 21:23 EDT Taylor Rehman MD Emergency department Discharge instructions * Taylor Rehman MD: PERFORM Event Display: ED Discharge Information Authored Date: [id number] ADAIR KONG :1965 Age:58 years Sex:Female Visit Date:08/01/2023 Primary Care Physician: Nya Hernandez JEWEL BEARING FACER Discharge Instructions We would like to thank you for allowing us to assist you with your healthcare needs. The following includes patient education materials and information regarding your injury/illness. Diagnosis from Today's Visit Nonspecific chest pain Chest wall pain Discharge Vitals Temperature??(Temporal Artery) 96.6 ??F (35.9 ??C) Heart Rate??(Peripheral) 55 Respiratory Rate?? 25 Blood Pressure?? 140/57?? SpO2?? 98% Weight?? 227.12 lb (103 kg) Allergies AmLODIPine Besylate Bactrim acetaminophen-hydrocodone??(Skin rash) doxycycline??(Skin rash) sulfADIAZINE??(Skin rash) What to Do Next Instructions from Your Care Team Please call to follow-up with your primary care provider this week.?? If you worsen return to the emergency department. ??You may try heat or ice??to your chest. You Need to Schedule the Following Appointments Follow Up with??Follow up with primary care provider When:??Within 1 to 2 weeks Upcoming Scheduled Appointments Wednesday 12:45 PM EDT ?? With: Keon Rico MD Where: [facility] [address] [place] [id number] Status: Confirmed 2023 9:00 AM EDT ?? With: Odilon Bridges PT, DPT Where: [facility] [address] [place] [phone] Status: Confirmed Wednesday 11:15 AM EDT ?? With: Odilon Bridges PT, DPT Where: [address] [phone] Status: Confirmed Wednesday 9:45 AM EDT ?? With: Odilon Bridges PT, DPT Where: [facility] [address] [address] Status: Confirmed Wednesday 9:45 AM EDT ?? With: Odilon Bridges PT, DPT Where: [address] [phone] Status: Confirmed Wednesday 9:00 AM EDT ?? With: Odilon Bridges PT, DPT Where: [address] [phone] Status: Confirmed Wednesday 10:00 AM EDT ?? With: Chi Zheng PT Where: [place] [facility] [address] [place] [address] Status: Confirmed Wednesday 10:30 AM EDT ?? With: Odilon Bridges PT, DPT Where: [place] [address] [place] [address] Status: Confirmed You were treated [...] How Much When Why Instructions Next Dose Unchanged albuterol (albuterol 90 mcg/ inh aerosol inhaler) Unchanged albuterol (Proventil HFA) Unchanged amoxicillin-clavulanate (amoxicillin-clavulanate 875 mg-125 mg oral tablet) 1 tab Oral (given by mouth) Every 12 hours Duration: 5 Days Unchanged apixaban (Eliquis 5 mg oral tablet) [...] FOUR TIMES A DAY NEEDED ?? Unchanged metoprolol (metoprolol succinate 50 mg oral tablet, extended release) 3 tab Oral (given by mouth) Every day Hypertension Unchanged nitroglycerin (nitroglycerin 0.4 mg sublingual tablet) Unchanged pantoprazole (pantoprazole 40 mg oral delayed release tablet) Unchanged pantoprazole (Protonix 40 mg oral delayed release tablet) 1 tab Oral (given by mouth) Every day Unchanged polyethylene glycol 3350 Oral (given by mouth) 17 Unknown, 1 Refill(s), Take 17 g by mouth daily. ?? Unchanged traZODone (traZODone 50 mg oral tablet) Education Materials Chest Wall Pain Chest wall pain is pain in or around the bones and muscles of your chest. Sometimes, an injury causes this pain. Excessive coughing or overuse of arm and chest muscles may also cause chest wall pain.Sometimes, the cause may not be known. This pain may take several weeks or longer to get better. Follow these instructions at home: Managing pain, stiffness, and swelling ? If directed, put ice on the painful area: ? Put ice in a plastic bag. ? Place a towel between your skin and the bag. ? Leave the ice on for 20 minutes, 2???3 times per day. Activity ? Rest as told by your health care provider. ? Avoid activities that cause pain. These include any activities that use your chest muscles or your abdominal and side muscles to lift heavy items. Ask your health care provider what activities are safe for you. General instructions ? Take zguc-jys-[id number] and prescription medicines only as told by your health care provider. ? Do not use any products that contain nicotine or tobacco, such as cigarettes, e- cigarettes, and chewing tobacco. These can delay healing after injury. If you need help quitting, ask your health care provider. ? Keep all follow-up visits as told by your health care provider. This is important. Contact a health care provider if: ? You have a fever. ? Your chest pain becomes worse. ? You have new symptoms. Get help right away if: ? You have nausea or vomiting. ? You feel sweaty or light-headed. ? You have a cough with mucus from your lungs (sputum) or you cough up blood. ? You develop shortness of breath. These symptoms may represent a serious problem that is an emergency. Do not wait to see if the symptoms will go away. Get medical help right away. Call your local emergency services (911 in the [place] Do not drive yourself to the hospital. Summary ? Chest wall pain is pain in or around the bones and muscles of your chest. ? Depending on the cause, it may be treated with ice, rest, medicines, and avoiding activities that cause pain. ? Contact a health care provider if you have a fever, worsening chest pain, or new symptoms. ? Get help right away if you feel light-headed or you develop shortness of breath. These symptoms maybe an emergency. This information is not intended to replace advice given to you by your health care provider. Make sure you discuss any questions you have with your health care provider. Document Revised: 05/06/2021 Document Reviewed: 05/09/2021 [employer] Patient Education ?? 2022 [employer] Nonspecific Chest Pain, Adult Chest pain is an uncomfortable, tight, or painful feeling in the chest. The pain can feel like a crushing, aching, or squeezing pressure. A person can feel a burning or tingling sensation. Chest paincan also be felt in your back, neck, jaw, shoulder, or arm. This pain can be worse when you move, sneeze, or take a deep breath. Chest pain can be caused by a condition that is life-threatening. This must be treated right away. It can also be caused by something that is not life- threatening. If you have chest pain, it can be hard to know the difference, so it is important to get help right away to make sure that you do not have a serious condition. Some life-threatening causes of chest pain include: ? Heart attack. ? A tear in the body's main blood vessel (aortic dissection). ? Inflammation around your heart (pericarditis). ? A problem in the lungs, such as a blood clot (pulmonary embolism) or a collapsed lung (pneumothorax). Some non life-threatening causes of chest pain include: ? Heartburn. ? Anxiety or stress. ? Damage to the bones, muscles, and cartilage that make up your chest wall. ? Pneumonia or bronchitis. ? Shingles infection (varicella-zoster virus). Your chest pain may come and go. It may also be constant. Your health care provider will do tests and other studies to find the cause of your pain. Treatment will depend on the cause of your chest pain. Follow these instructions at home: Medicines ? Take hukn-qio-oxtpiuu and prescription medicines only as told by your health care provider. ? If you were prescribed an antibiotic medicine, take it as told by your health care provider. Do notstop taking the antibiotic even if you start to feel better. Activity ? Avoid any activities that cause chest pain. ? Do not lift anything that is heavier than 10 lb (4.5 kg), or the limit that you are told, until your health care provider says that it is safe. ? Rest as directed by your health care provider. ? Return to your normal activities only as told by your health care provider. Ask your health care provider what activities are safe for you. Lifestyle ? Do not use any products that contain nicotine or tobacco, such as cigarettes, e- cigarettes, and chewing tobacco. If you need help quitting, ask your health care provider. ? Do not drink alcohol. ? Make healthy lifestyle changes as recommended. These may include: ? Getting regular exercise. Ask your health care provider to suggest some exercises that are safe foryou. ? Eating a heart-healthy diet. This includes plenty of fresh fruits and vegetables, whole grains, low-fat (lean) protein, and low-fat dairy products. A dietitian can help you find healthy eating options. ? Maintaining a healthy weight. ? Managing any other health conditions you may have, such as high blood pressure (hypertension) or diabetes. ? Reducing stress, such as with yoga or relaxation techniques. General instructions ? Pay attention to any changes in your symptoms. ? It is up to you to get the results of any tests that were done. Ask your health care provider, or the department that is doing the tests, when your results will be ready. ? Keep all follow-up visits as told by your health care provider. This is important. ? You may be asked to go for further testing if your chest pain does not go away. Contact a health care provider if: ? Your chest pain does not go away. ? You feel depressed. ? You have a fever. ? You notice changes in your symptoms or develop new symptoms. Get help right away if: ? Your chest pain gets worse. ? You have a cough that gets worse, or you cough up blood. ? You have severe pain in your abdomen. ? You faint. ? You have sudden, unexplained chest discomfort. ? You have sudden, unexplained discomfort in your arms, back, neck, or jaw. ? You have shortness of breath at any time. ? You suddenly start to sweat, or your skin gets clammy. ? You feel nausea or you vomit. ? You suddenly feel lightheaded or dizzy. ? You have severe weakness, or unexplained weakness or fatigue. ? Your heart begins to beat quickly, or it feels like it is skipping beats. These symptoms may represent a serious problem that is an emergency. Do not wait to see if the symptoms will go away. Get medical help right away. Call your local emergency services (911 in the [place] Do not drive yourself to the hospital. Summary ? Chest pain can be caused by a condition that is serious and requires urgent treatment. It may also be caused by something that is not life-threatening. ? Your health care provider may do lab tests and other studies to find the cause of your pain. ? Follow your health care provider's instructions on taking medicines, making lifestyle changes, and getting emergency treatment if symptoms become worse. ? Keep all follow-up visits as told by your health care provider. This includes visits for any further testing if your chest pain does not go away. This information is not intended to replace advice given to you by your health care provider. Make sure you discuss any questions you have with your health care provider. Document Revised: 05/06/2021 Document Reviewed: 05/08/2021 [employer] Patient Education ?? 2022 [employer] Tests Performed Medications and Immunizations Administered Given aluminum hydroxide/magnesium hydroxide/simethicone 200 mg-200 mg-20 mg/5 mL oral suspension, 30 mL,Oral aspirin, 325 mg, Oral Lab Test Name Test Result Date/Time WBC 13.9 x10^3/mcL 08/01/2023 19:40 EDT RBC 5.1 x10^6/mcL 08/01/2023 19:40 EDT Hgb 15.0 g/dL 08/01/2023 19:40 EDT Hct 45.7 % 08/01/2023 19:40 EDT MCV 90.0 fL 08/01/2023 19:40 EDT MCH 29.5 pg 08/01/2023 19:40 EDT MCHC 32.8 g/dL 08/01/2023 19:40 EDT RDW-CV 13.9 % 08/01/2023 19:40 EDT Platelets 415 x10^3/mcL 08/01/2023 19:40 EDT Neutro Auto 66.1 % 08/01/2023 19:40 EDT Lymph Auto 21.7 % 08/01/2023 19:40 EDT [place] Auto 6.8 % 08/01/2023 19:40 EDT Eos, Auto 3.5 % 08/01/2023 19:40 EDT Basophil Auto 1.0 % 08/01/2023 19:40 EDT Imm Gran Auto 0.9 % 08/01/2023 19:40 EDT Neutro Absolute 9.2 x10^3/mcL 08/01/2023 19:40 EDT Slide Review Not Indicated 08/01/2023 19:40 EDT D Dimer, (Quant.) <0.19 mg/L 08/01/2023 19:40 EDT Sodium Level 136 mmol/L 08/01/2023 19:40 EDT Potassium Level 3.9 mmol/L 08/01/2023 19:40 EDT Chloride Level 101 mmol/L 08/01/2023 19:40 EDT CO2 29 mmol/L 08/01/2023 19:40 EDT Alk Phos 132 unit/L 08/01/2023 19:40 EDT AST 14 unit/L 08/01/2023 19:40 EDT ALT 30 unit/L 08/01/2023 19:40 EDT BUN 18 mg/dL 08/01/2023 19:40 EDT Glucose Level 98 mg/dL 08/01/2023 19:40 EDT Creatinine Level 0.82 mg/dL 08/01/2023 19:40 EDT eGFR AA 82 08/01/2023 19:40 EDT eGFR Non-AA 82 08/01/2023 19:40 EDT Calcium Level 8.9 mg/dL 08/01/2023 19:40 EDT Protein Total 7.2 g/dL 08/01/2023 19:40 EDT Albumin Level 3.6 g/dL 08/01/2023 19:40 EDT Bilirubin Total 0.6 mg/dL 08/01/2023 19:40 EDT Troponin-I 6.4 pg/mL 08/01/2023 19:40 EDT NT-proBNP 152 pg/mL 08/01/2023 19:40 EDT Patient/Director Dietetics Department Signature Patient Name:ADAIR KONG I have received this information and my questions have been answered. Patient/Director Dietetics Department Name: Patient/Director Dietetics Department Signature: Relationship to Patient: Witness Name/Signature: Date: Electronically Signed on: 08/01/2023 21:18 EDTSigned by:[facility] Patient Care team information Care Team Personnel Name: Nya Hernandez JEWEL BEARING FACER Position: PowerChart View Only Member Role: Primary Care Physician Address: Address: [address] [place] [id number]- Care Team Related Persons Name: TANG KONG Address: Home [address], [id number] Name: MALIA KONG Name: MANUELA KONG
--- OUTSIDE RECORDS SUMMARY | 2023-12-28 16:17 | XMS_ITS | Continuity of Care Document ---
Author Organization [facility] Address [address] [place] [address] Care Team Providers Care Programmer Operator Numerical Control Name Role Phone GomezMarco Primary Care Physician [phone] Encounter [facility] Date(s): 05/10/23 - 05/10/[address] [address] Discharge Disposition: Home or Self Care Attending Physician: Nya Hernandez CARD PAINTER Admitting Physician: Nya Hernandez NP Referring Physician: Nya Hernandez CARD PAINTER Allergies, Adverse Reactions, Alerts Substance Reaction Severity Status doxycycline Skin rash Unknown Active acetaminophen-hydrocodone Skin rash Unknown Ac tive sulfADIAZINE Skin rash Unknown Active Bactrim Unknown Active AmLODIPine Besylate 1 Severe Active 1Leg and feet swelling, severe Immunizations Given and Recorded Vaccine Date Status [...] information Care Team Personnel Name: Nya Hernandez CARD PAINTER Position: PowerChart View Only Member Role: Informed Provider Address: Address: [address] [place], [place] [address] Name: Marco Dyer MD Position: Physician Member Role: Primary Care Physician Address: Address: [address] [place] [address] [place] Care Team Related Persons Name: TANG KONG Address: Home [address], [id number]
--- OUTSIDE RECORDS SUMMARY | 2023-12-28 16:17 | XMS_ITS | Continuity of Care Document ---
Author Organization [facility] Address [address] [place] [address] Care Team Providers Care Box Office Clerk Name Role Phone GomezMarco Primary Care Physician [facility] Date(s): 05/02/23 - 05/02/23 [facility] [address] [place] [address] Encounter Diagnosis Upper respiratory infection(Discharge Diagnosis) - 05/02/23 Pharyngitis(Discharge Diagnosis) - 05/02/23 Discharge Disposition: Home or Self Care Attending [...] from: Title:ED Provider Note Author:Hay Rehman MD Date:05/02/23 Assessment/Plan 1.??Upper respiratory infection??J06.9 I think patient has a viral upper respiratory infection especially where rapid strep here in the emergency department is negative.?? It also sounds like her son exposed her to an upper respiratory infection??exam is reassuring with lungs sounding??clear??slight erythema posterior pharynx??with rapid strep being negative??patient will continue with??symptomatic??treatment with mobj-gzh-kihyyoy??medications. Ordered: Discharge Patient, 05/02/23 10:29:00 EST, Home Independently, Constant Indicator ?? 2.??Pharyngitis??J02.9 See above Ordered: Discharge Patient, 05/02/23 10:29:00 EST, Home Independently, Constant Indicator ?? Patient Education Upper Respiratory Infection, Adult Follow Up With When Contact Information Follow up with primary care provider Within 1 to 2 weeks Additional Instructions: Immunizations Given and Recorded Vaccine Date Status [...] blood clot Results Laboratory List Name Date Strep A (ID NOW) 05/02/23 Most recent to oldest [Reference Range]: 1 Strep A -IDNOW [Not Detected] Not Detect ed (05/02/23 9:40 AM) Vital Signs Most recent to oldest [Reference Range]: 1 Temperature Temporal Artery [36-38 Deg C ] 36.1 Deg C (05/02/23 8:55 AM) Peripheral Pulse Rate [60-100 bpm] 72 bp m (05/02/23 8:55 AM) Respiratory Rate [12-24 br/min] 18 br/mi n (05/02/23 8:55 AM) Blood Pressure [90-140/60-90 mmHg] 124/6 0mmHg (05/02/23 8:55 AM) Mean Arterial Pressure, Cuff [65-140 mmH g] 81 mmHg (05/02/23 8:55 AM) Weight Estimated 102.97 kg (05/02/23 8:55 AM) Body Mass Index Estimated 40.21 kg/m2 (05/02/23 8:55 AM) Height/Length Estimated 160.02 cm (05/02/23 8:55 AM) Social History Social History Type Response Tobacco Former tobacco user Tobacco Use:. 1 Sex Female 1quit over a month ago Hospital Discharge Instructions Patient Education 05/02/2023 09:29:57 Upper Respiratory Infection, Adult Upper Respiratory Infection, Adult An upper respiratory infection (URI) is a common viral infection of the nose, throat, and upper airpassages that lead to the lungs. The most common type of URI is the common cold. URIs usually get better on their own, without medical treatment. What are the causes? A URI is caused by a virus. You may catch a virus by: ??? Breathing in droplets from an infected person's cough or sneeze. ??? Touching something that has been exposed to the virus (is contaminated) and then touching your mouth, nose, or eyes. What increases the risk? You are more likely to get a URI if: ??? You are very young or very old. ??? You have close contact with others, such as at work, school, or a health care facility. ??? You smoke. ??? You have long-term (chronic) heart or lung disease. ??? You have a weakened disease-fighting system (immune system). ??? You have nasal allergies or asthma. ??? You are experiencing a lot of stress. ??? You have poor nutrition. What are the signs or symptoms? A URI usually involves some of the following symptoms: ??? Runny or stuffy (congested) nose. ??? Cough. ??? Sneezing. ??? Sore throat. ??? Headache. ??? Fatigue. ??? Fever. ??? Loss of appetite. ??? Pain in your forehead, behind your eyes, and over your cheekbones (sinus pain). ??? Muscle aches. ??? Redness or irritation of the eyes. ??? Pressure in the ears or face. How is this diagnosed? This condition may be diagnosed based on your medical history and symptoms, and a physical exam. Your health care provider may use a swab to take a mucus sample from your nose (nasal swab). This sample can be tested to determine what virus is causing the illness. How is this treated? URIs usually get better on their own within 7???10 days. Medicines cannot cure URIs, but your health care provider may recommend certain medicines to help relieve symptoms, such as: ??? Slly-kch-wptujdn cold medicines. ??? Cough suppressants. Coughing is a type of defense against infection that helps to clear the respiratory system, so take these medicines only as recommended by your health care provider. ??? Fever-reducing medicines. Follow these instructions at home: Activity ??? Rest as needed. ??? If you have a fever, stay home from work or school until your fever is gone or until your health care provider says your URI cannot spread to other people (is no longer contagious). Your health care provider may have you wear a face mask to prevent your infection from spreading. Relieving symptoms ??? Gargle with a mixture of salt and water 3???4 times a day or as needed. To make salt water, completely dissolve ?1 tsp (3???6 g) of salt in 1 cup (237 mL) of warm water. ??? Use a cool-mist humidifier to add moisture to the air. This can help you breathe more easily. Eating and drinking ??? Drink enough fluid to keep your urine pale yellow. ??? Eat soups and other clear broths. General instructions ??? Take dobf-idv-mnmdznp and prescription medicines only as told by your health care provider. These include cold medicines, fever reducers, and cough suppressants. ??? Do not use any products that contain nicotine or tobacco. These products include cigarettes, chewing tobacco, and vaping devices, such as e-cigarettes. If you need help quitting, ask your health care provider. ??? Stay away from secondhand smoke. ??? Stay up to date on all immunizations, including the yearly (annual) flu vaccine. ??? Keep all follow-up visits. This is important. How to prevent the spread of infection to others URIs can be contagious. To prevent the infection from spreading: ??? Wash your hands with soap and water for at least 20 seconds. If soap and water are not available, use hand nitrate operator. ??? Avoid touching your mouth, face, eyes, or nose. ??? Cough or sneeze into a tissue or your sleeve or elbow instead of into your hand or into the air. Contact a health care provider if: ??? You are getting worse instead of better. ??? You have a fever or chills. ??? Your mucus is brown or red. ??? You have yellow or brown discharge coming from your nose. ??? You have pain in your face, especially when you bend forward. ??? You have swollen neck glands. ??? You have pain while swallowing. ??? You have white areas in the back of your throat. Get help right away if: ??? You have shortness of breath that gets worse. ??? You have severe or persistent: ??? Headache. ??? Ear pain. ??? Sinus pain. ??? Chest pain. ??? You have chronic lung disease along with any of the following: ??? Making high-pitched whistling sounds when you breathe, most often when you breathe out (wheezing). ??? Prolonged cough (more than 14 days). ??? Coughing up blood. ??? A change in your usual mucus. ??? You have a stiff neck. ??? You have changes in your: ??? Vision. ??? Hearing. ??? Thinking. ??? Mood. These symptoms may be an emergency. Get help right away. Call 911. ??? Do not wait to see if the symptoms will go away. ??? Do not drive yourself to the hospital. Summary ??? An upper respiratory infection (URI) is a common infection of the nose, throat, and upper air passages that lead to the lungs. ??? A URI is caused by a virus. ??? URIs usually get better on their own within 7???10 days. ??? Medicines cannot cure URIs, but your health care provider may recommend certain medicines to help relieve symptoms. This information is not intended to replace advice given to you by your health care provider. Make sure you discuss any questions you have with your health care provider. Document Revised: 09/24/2021 Document Reviewed: 09/24/2021 [employer] Patient Education ?? 2022 [employer]. Follow Up Care 05/02/2023 08:55:41 With:Follow up with primary care provider Address: When:1 to 2 weeks Physician Emergency department Note * Taylor Rehman MD: PERFORM Event Display: ED Note Physician Authored Date: [id number] LEWIS KONGORAEdvin Mortensen :1965 Age:58 years Sex:Female Visit Date:05/02/2023 Primary Care Physician: Marco Dyer MD Basic Information Time Seen: Taylor Rehman MD / 05/02/2023 09:04 Chief Complaint I think I have an ear infection; ??c/o bilateral ear pain since yesterday. ??Also c/o coughing and sneezing. Pt also reports that she had a biopsy taken from her right cheek on . History Of Present Illness: Patient reports??she has had bilateral pain since yesterday she also states that she has been having some coughing and sneezing. ??She reports she saw her son on Wednesday and he??told her that he had acold.?? Patient reports cough is nonproductive.?? No known fever.?? Patient has been drinking plenty of water she denies any??new abdominal pain or discomfort.?? Patient reports some ongoing low backdiscomfort but she is doing exercises for this.?? Patient reports she is already gone for a walk this morning she says she is trying to lose weight??she wants to be careful??of her weight especially where she needs her prosthesis for her??right leg. Review of Systems: see hpi for ros Physical Exam Vitals & Measurements T:??36.1?C ??(Temporal Artery)?? HR:??72??(Peripheral)?? RR:??18?? BP:??124/60?? SpO2:??94%?? HT:??160.02??cm?? WT:??102.97??kg??(Estimated)?? BMI:??40.21?? O2 Therapy:??Room air?? General: Alert and oriented, well nourished,?No??acute distress Eye: PER?Normal??conjunctiva,??No??scleral icterus HENT: Normocephalic,??nontraumatic??Normal hearing??positive slight erythema posterior pharynx Lungs: Clear to auscultation,?Non-labored?? respiration Heart:?Normal?? rate,?Regular??rhythm,?No??murmur,?No??gallop,?No??edema Chest: wall excursion wnl no abnormal movements no obvious deformities Skin: Skin is warm, dry and pink,?No??rashes,?No??lesions Neurologic: Awake, alert and oriented X4 Psychiatric: Cooperative, appropriate mood and affect Medical Decision Making: For MDM please see under assessment and plan Procedure No Qualifying Data Assessment/Plan 1.??Upper respiratory infection??J06.9 I think patient has a viral upper respiratory infection especially where rapid strep here in the emergency department is negative.?? It also sounds like her son exposed her to an upper respiratory infection??exam is reassuring with lungs sounding??clear??slight erythema posterior pharynx??with rapid strep being negative??patient will continue with??symptomatic??treatment with jkth-quw-louutzg??medications. Ordered: Discharge Patient, 05/02/23 10:29:00 EST, Home Independently, Constant Indicator ?? 2.??Pharyngitis??J02.9 See above Ordered: Discharge Patient, 05/02/23 10:29:00 EST, Home Independently, Constant Indicator ?? Patient Education Upper Respiratory Infection, Adult Follow Up With When Contact Information [...] (2020)???Closure of vesicouterine fistula; with hysterectomy (1989) Allergies AmLODIPine Besylate Bactrim acetaminophen-hydrocodone??(Skin rash) doxycycline??(Skin [...] attack: Father. Heart disease: Father. Lab Results Infectious Disease?? LATEST RESULTS?? HISTORICAL RESULTS?? Strep A -IDNOW?? 05/02/23 09:40?? Not Detected?? 10/14/22?? Not Detected? Electronically Signed on 05/02/23 10:31 AM Taylor Rehman MD Emergency department Discharge instructions * Taylor Rehman MD: PERFORM Event Display: ED Discharge Information Authored Date: [id number] ADAIR KONG:1965 Age:58 years Sex:Female Visit Date:05/02/2023 Primary Care Physician: Marco Dyer MD Discharge Instructions We would like to thank you for allowing us to assist you with your healthcare needs. The following includes patient education materials and information regarding your injury/illness. Diagnosis from Today's Visit Upper respiratory infection Pharyngitis Discharge Vitals Temperature??(Temporal Artery) 97.0 ??F (36.1 ??C) Heart Rate??(Peripheral) 72 Respiratory Rate?? 18 Blood Pressure?? 124/60?? Height?? 63.00 in (160.02 cm) Weight??(Estimated) 227.05 lb (102.97 kg) BMI?? 40.21 Allergies AmLODIPine Besylate Bactrim acetaminophen-hydrocodone??(Skin rash) doxycycline??(Skin rash) sulfADIAZINE??(Skin rash) What to Do Next Instructions from Your Care Team Continue with Tylenol as needed continue with medications zpmi-xad-ohkovja to help??with symptoms.?? If you worsen or do not improve please return to the emergency department or see primary care provider. You Need to Schedule the Following Appointments [...] What How Much When Instructions Next Dose Unchanged albuterol (albuterol [...] (traZODone 50 mg oral tablet) Education Materials Upper Respiratory Infection, Adult An upper respiratory infection (URI) is a common viral infection of the nose, throat, and upper airpassages that lead to the lungs. The most common type of URI is the common cold. URIs usually get better on their own, without medical treatment. What are the causes? A URI is caused by a virus. You may catch a virus by: ? Breathing in droplets from an infected person's cough or sneeze. ? Touching something that has been exposed to the virus (is contaminated) and then touching your mouth, nose, or eyes. What increases the risk? You are more likely to get a URI if: ? You are very young or very old. ? You have close contact with others, such as at work, school, or a health care facility. ? You smoke. ? You have long-term (chronic) heart or lung disease. ? You have a weakened disease-fighting system (immune system). ? You have nasal allergies or asthma. ? You are experiencing a lot of stress. ? You have poor nutrition. What are the signs or symptoms? A URI usually involves some of the following symptoms: ? Runny or stuffy (congested) nose. ? Cough. ? Sneezing. ? Sore throat. ? Headache. ? Fatigue. ? Fever. ? Loss of appetite. ? Pain in your forehead, behind your eyes, and over your cheekbones (sinus pain). ? Muscle aches. ? Redness or irritation of the eyes. ? Pressure in the ears or face. How is this diagnosed? This condition may be diagnosed based on your medical history and symptoms, and a physical exam. Your health care provider may use a swab to take a mucus sample from your nose (nasal swab). This sample can be tested to determine what virus is causing the illness. How is this treated? URIs usually get better on their own within 7???10 days. Medicines cannot cure URIs, but your health care provider may recommend certain medicines to help relieve symptoms, such as: ? Rqug-sil-tqtyure cold medicines. ? Cough suppressants. Coughing is a type of defense against infection that helps to clear the respiratory system, so take these medicines only as recommended by your health care provider. ? Fever-reducing medicines. Follow these instructions at home: Activity ? Rest as needed. ? If you have a fever, stay home from work or school until your fever is gone or until your health care provider says your URI cannot spread to other people (is no longer contagious). Your health care provider may have you wear a face mask to prevent your infection from spreading. Relieving symptoms ? Gargle with a mixture of salt and water 3???4 times a day or as needed. To make salt water, completely dissolve ?1 tsp (3???6 g) of salt in 1 cup (237 mL) of warm water. ? Use a cool-mist humidifier to add moisture to the air. This can help you breathe more easily. Eating and drinking ? Drink enough fluid to keep your urine pale yellow. ? Eat soups and other clear broths. General instructions ? Take ljcc-qmt-nulwphz and prescription medicines only as told by your health care provider. These include cold medicines, fever reducers, and cough suppressants. ? Do not use any products that contain nicotine or tobacco. These products include cigarettes, chewing tobacco, and vaping devices, such as e-cigarettes. If you need help quitting, ask your health careprovider. ? Stay away from secondhand smoke. ? Stay up to date on all immunizations, including the yearly (annual) flu vaccine. ? Keep all follow-up visits. This is important. How to prevent the spread of infection to others URIs can be contagious. To prevent the infection from spreading: ? Wash your hands with soap and water for at least 20 seconds. If soap and water are not available, use hand nitrate operator. ? Avoid touching your mouth, face, eyes, or nose. ? Cough or sneeze into a tissue or your sleeve or elbow instead of into your hand or into the air. Contact a health care provider if: ? You are getting worse instead of better. ? You have a fever or chills. ? Your mucus is brown or red. ? You have yellow or brown discharge coming from your nose. ? You have pain in your face, especially when you bend forward. ? You have swollen neck glands. ? You have pain while swallowing. ? You have white areas in the back of your throat. Get help right away if: ? You have shortness of breath that gets worse. ? You have severe or persistent: ? Headache. ? Ear pain. ? Sinus pain. ? Chest pain. ? You have chronic lung disease along with any of the following: ? Making high-pitched whistling sounds when you breathe, most often when you breathe out (wheezing). ? Prolonged cough (more than 14 days). ? Coughing up blood. ? A change in your usual mucus. ? You have a stiff neck. ? You have changes in your: ? Vision. ? Hearing. ? Thinking. ? Mood. These symptoms may be an emergency. Get help right away. Call 911. ? Do not wait to see if the symptoms will go away. ? Do not drive yourself to the hospital. Summary ? An upper respiratory infection (URI) is a common infection of the nose, throat, and upper air passages that lead to the lungs. ? A URI is caused by a virus. ? URIs usually get better on their own within 7???10 days. ? Medicines cannot cure URIs, but your health care provider may recommend certain medicines to help relieve symptoms. This information is not intended to replace advice given to you by your health care provider. Make sure you discuss any questions you have with your health care provider. Document Revised: 09/24/2021 Document Reviewed: 09/24/2021 [employer] Patient Education ?? 2022 [employer]. Tests Performed Lab Test Name Test Result Date/Time Strep A -IDNOW Not Detected 05/02/2023 09:40 EST Patient/Chemical Instrumentation Officer Signature Patient Name:ADAIR KONG I have received this information and my questions have been answered. Patient/Chemical Instrumentation Officer Name: Patient/Chemical Instrumentation Officer Signature: Relationship to Patient: Witness Name/Signature: Date: Electronically Signed on: 05/02/2023 10:30 ESTSigned by:KIMBERLI Patient Care team information Care Team Personnel Name: Nya Hernandez SHOER Position: PowerChart View Only Member Role: Informed Provider Address: Address: [address] [place] [id number] Name: Marco Dyer MD Position: Physician Member Role: Primary Care Physician Address: Address: [address] [place] [address] Care Team Related Persons Name: TANG KONG Address: Home [address] [phone]
--- OUTSIDE RECORDS SUMMARY | 2023-12-28 16:17 | XMS_ITS | Continuity of Care Document ---
Author Organization [facility] Address [address] [place] [address] Care Team Providers Care Hop Trainer Name Role Phone Nya Hernandez Primary Care Physician [facility]counter [facility] [id number] Date(s): 06/29/23 - 09/12/[address] [address] Discharge Disposition: Home or Self Care Attending Physician: Nya Hernandez ANODE ADJUSTER Admitting Physician: Nya Hernandez ANODE ADJUSTER Referring Physician: Nya Hernandez ANODE ADJUSTER Allergies, Adverse Reactions, Alerts Substance Reaction Severity [...] hr, # 10 tab, 0 Refill(s), Pharmacy: [id number], 160, cm, :03:00 EDT, Height, [...] Daily, # 270 tab, 3 Refill(s), Pharmacy: [facility], 160.02, cm, 07/27/23 9:54:00 EDT, [...] swallow, # 210 mL, 0 Refill(s), Pharmacy: [id number], 160, cm, 07/15/23 7:03:00 EDT, [...] information Care Team Personnel Name: Nya Hernandez ANODE ADJUSTER Position: PowerChart View Only Member Role: Primary Care Physician Address: Address: [address] [place] [id number] Care Team Related Persons Name: TANG KONG Address: Home [address] [phone] Name: MALIA KONG Name: MANUELA KONG
--- OUTSIDE RECORDS SUMMARY | 2023-12-28 16:17 | XMS_ITS | Continuity of Care Document ---
Author Organization [facility] Address [address] [place] [address] Care Team Providers Care Paleologist Name Role Phone Nya Hernandez Primary Care Physician Encounter [facility] [id number] Date(s): 09/23/23 - 09/23/[address] [address] Discharge Disposition: Home or Self Care Attending Physician: Nya Hernandez HEDIS MANAGER Admitting Physician: Nya Hernandez HEDIS MANAGER Referring Physician: Nya Hernandez HEDIS MANAGER Allergies, Adverse Reactions, Alerts Substance Reaction Severity [...] hr, # 10 tab, 0 Refill(s), Pharmacy: [facility], 160, cm, :03:00 EDT, Height, [...] Daily, # 270 tab, 3 Refill(s), Pharmacy: [facility], 160.02, cm, 07/27/23 9:54:00 EDT, [...] swallow, # 210 mL, 0 Refill(s), Pharmacy: [facility], 160, cm, 07/15/23 7:03:00 EDT, [...] information Care Team Personnel Name: Nya Hernandez HEDIS MANAGER Position: PowerChart View Only Member Role: Primary Care Physician Address: Address: [address] [place] [id number] Care Team Related Persons Name: TANG KONG Address: Home [address] [phone] Name: MALIA KONG Name: MANUELA KONG
--- OUTSIDE RECORDS SUMMARY | 2023-12-28 16:17 | XMS_ITS | Continuity of Care Document ---
Author Organization [facility] Address [address] [place] [address] Care Team Providers Care Riveting Machine Operator Name Role Phone Nya Hernandez Primary Care Physician [phone] Encounter NCTY_[place] Date(s): 07/27/23 - 07/27/23 [facility] [address] [place] [address] Encounter Diagnosis Hypertensive disorder(Discharge Diagnosis) - 07/26/23 Discharge Disposition: Home or Self Care Attending Physician: Kervin Alejandre MD Referring Physician: Nya Hernandez BOTTOM BLEACHER Allergies, Adverse Reactions, Alerts Substance Reaction Severity Status doxycycline Skin rash Unknown Active acetaminophen-hydrocodone Skin rash Unknown Ac tive sulfADIAZINE Skin rash Unknown Active Bactrim Unknown Active AmLODIPine Besylate 1 Severe Active 1Leg and feet swelling, severe Assessment and Plan Extracted from: Title:Cardiology Office Visit Author:St enrike Alejandre MD Date:07/27/23 Hypertensive disorder??I10 Actions: ORDERED - metoprolol, 150 mg = 3 cap, Oral, Daily, # 90 cap, 4 Refill(s), Pharmacy: [facility], 160.02, cm, 07/27/23 9:54:00 EDT, Height, 101.6, kg, 07/27/23 10:06:00 EDT, Weight Dosing COMPLETED - 48263 Office/Outpatient Visit - New Patient, Level 4 (45-59 min), 07/27/23 9:42:00 EDT, Hypertensive disorder COMPLETED - CV ECG Clinic, 07/27/23 9:54:00 EDT, Routine, Reason: Other (please specify), Stop date and time 07/27/23 9:54:00 EDT, Hypertensive disorder, ORD_SET_REQ_DT_RANGE, Sultana's Internal Person Id FUTURE - Follow-Up Appointment Request NCTY, *Est. 01/27/24 +/- 28 days, Future Order, In Approximately, [facility] ?? Future Appointments Immunizations Given and Recorded Vaccine Date Status Refusal Reason pneumococcal 13-valent conjugate vaccine 05/27/16 Recorded pneumococcal 23-polyvalent vaccine 07/02/15 Record ed Medications albuterol 90 mcg/inh aerosol inhaler 0 Refill(s) Start Date: 10/29/21 Status: Ordered amoxicillin-clavulanate 875 mg-125 mg oral tablet 1 tab, Oral, every 12 hr, # 10 tab, 0 Refill(s), Pharmacy: [facility], 160, cm, 247:03:00 EDT, Height, [...] Status: Ordered metoprolol succinate 50 mg oral capsule, extended release 150 mg = 3 cap, Oral, Daily, # 90 cap, 4 Refill(s), Pharmacy: [facility], 160.02, cm, 07/27/23 9:54:00 EDT, Height, 101.6, kg, 07/27/23 10:06:00 EDT, Weight Dosing Start Date: 07/27/23 Status: Ordered nitroglycerin 0.4 mg sublingual tablet 0 Refill(s) Start Date: 10/29/21 Status: Ordered pantoprazole 40 mg oral delayed release tablet 0 Refill(s) Start Date: 10/29/21 Status: Ordered Peridex 0.12% mucous membrane liquid 0.018 g 15 mL, Oral, BID, swish and spit; do not swallow, # 210 mL, 0 Refill(s), Pharmacy: [facility], 160, cm, 07/15/23 7:03:00 EDT, [...] adenoma 2heart attack 3due to blood clot Vital Signs Most recent to oldest [Reference Range]: 1 Peripheral Pulse Rate [60-100 bpm] 63 bp m (07/27/23 9:54 AM) Blood Pressure [90-140/60-90 mmHg] 123/6 6mmHg (07/27/23 9:54 AM) Mean Arterial Pressure, Cuff [65-140 mmH g] 85 mmHg (07/27/23 9:54 AM) Weight 101.60 kg (07/27/23 9:54 AM) Weight Measured (lbs) 223.989 lb (07/27/23 9:54 AM) Weight Dosing 101.600 kg (07/27/23 9:54 AM) Height 160.02 cm (07/27/23 9:54 AM) Height/Length Measured (inches) 63 inch (07/27/23 9:54 AM) BSA Measured 2.13 m2 (07/27/23 9:54 AM) Body Mass Index 39.68 kg/m2 (07/27/23 9:54 AM) Social History Social History Type Response Tobacco Former tobacco user Tobacco Use:. 1 Sex Female 1quit over a month ago Physician Outpatient Note * Kervin Alejandre MD: PERFORM Event Display: Office Clinic Note Physician Authored Date: [id number] ELIZA KONG :1965 Age:58 years Sex:Female Visit Date:07/27/2023 Primary Care Physician: Nya Hernandez NP History of Present Illness Cardiac Problems: 1. NSTEMI- 06/02/21. LHC 06/02/21 [facility] DESx1 to the mid LCx/proximal OM2.?? 2. Atrial Fibrillation-On Eliquis 3. Hx of acute pulmonary embolism 4. Acute renal failure with oliguria 5. COPD 6. Coronary arteriosclerosis ?? This is a 58 year old woman who I believe is new to our practice. She has a history of a NSTEMI in 2021: Atrial fibrillation was also noted at that time, although she seems fairly unaware of that diagnosis. ??She is accompanied by her daughter in law Denise??who was able to provide some of that history. ?? She is currently prescribed??Plavix, as well as Eliquis; she is been told to take the Eliquis only as needed??(?).?? She is status post??AKA on the right for what sounds like an arterial??thrombus??and probably??a necrotic leg.?? She needs lifelong Plavix, more than likely, given that history. ??She also needs lifelong Eliquis for her??history of atrial fibrillation;??these meds??increase the risk of bleeding when used together, but??they do not solve??the same problems, and both should be continued, probably in perpetuity. ?? She feels reasonably well.?? There is no chest pain, there is no shortness of breath, there is no syncope, there are no palpitations. ??She had some lower extremity edema??when she was off Plavix andEliquis for a couple of weeks for a cheek surgery (a gland was removed), but that seems to have resolved since then. ?? She really does not do much by way of exercise. ??She is about to get a lower extremity??prosthesis, and is already doing strenuous physical therapy, and she feels healthy with that. ??Otherwise she mostly does stretching exercises.?? She comes in today in a wheelchair. ?? She has a blood pressure cuff at home (actually she has both an arm cuff, and a wrist cuff -??I have asked her to??throw away the wrist cuff and only use the arm cuff). ??She should be checking blood pressures using the arm cuff regularly, although she only tends to check it when she gets lightheaded, or when she is very anxious; neither are particularly useful??data points. ??She is not hypotensive when she is lightheaded,??however. Review of Systems A complete review of systems is negative other than as noted in the history of present illness. Physical Exam Vitals & Measurements HR:??63??(Peripheral)?? BP:??123/66?? SpO2:??94%?? HT:??160.02??cm?? WT:??101.60??kg?? BMI:??39.68?? BSA:??2.13?? HEENT: Normocephalic, atraumatic Respirations: Clear to auscultation bilaterally with no wheezes rubs or rhonchi Cardiac: Regular rate and rhythm, normal S1, S2, no murmurs gallops or rubs Abdomen: Nontender nondistended normal active bowel sounds Extremities: 2+ dorsalis pedis pulses bilaterally with no significant edema Medical Decision Making Data Reviewed: Event: 02/17/23. Sinus rhythm with rates varying from 49-146 and an avg of 72. This study is ordered on the basis of bradycardia and this pts bradycardia is not extreme and does not appear to have any clinical relevance. She had a single cluster of PACs which the machine read as SVT, lasting just for beats. Essentially a normal 7 day monitor.?? Echo: 11/16/22. EF of 65% with normal wall?? motion. Diastolic indices appear normal, no evidence ofelevated left sided filling pressures. There is mild with a valve area of 1.5cm. PV 2.6 ms, meangradient 13 mmHg, AV DI 0.63. There is mild insufficiency. PAP normal, est. 32 mmHg.?? LHC: 06/02/21-DESx1 to the mid LCx/proximal OM2 EK07/27/2023: Sinus rhythm at 61 bpm. ??Axes and intervals are within normal limits. ??No evidence of ischemia or prior infarct. ?? 58-year-old woman??with coronary disease and atrial fibrillation. ?? Coronary artery disease:??She had an infarct couple years ago with drug-eluting stent??to the circumflex and??OM 2.?? She is currently without signs or symptoms of ischemia. ??She is appropriately medically managed, although not on a beta- mauricio. ??I am starting metoprolol??succinate 50 mg daily. ??We talked about side effects to watch out for.?? Her blood pressure has been reasonable, and may drop a little bit??she is already on aspirin, statin, and an ARB, as well as??Plavix. ??In her case, I think the Plavix is not for her stents, but is for her??peripheral arterial disease??and in that context, it probably should be continued lifelong. ?? Atrial fibrillation:??This was noted in the hospital when she was being treated for her infarct.?? She should remain on Eliquis lifelong.?? Sure where the recommendation for as needed Eliquis came from, but typically do not use this medication in this way.?? Eliza was told it was optional, and perhaps this was based on a normal event monitor from last February??which did not show any atrial fibrillation.?? Regardless, if we have made the diagnosis of atrial fibrillation I would recommend lifelong Eliquis, as long as it is tolerated.?? I do not have the primary documentation??showing??atrial fibrillation,??but it sounds like it was probably made in a reasonable context??in a hospital. ?? We will plan to bring Eliza back here in about 6 months for recheck. ??She understands that visit will be with Dr. Evans.?? It was a genuine pleasure to meet Eliza and Denise. ??Thank you for the courtesy of the consultation. Clinic Assessment/Plan Hypertensive disorder??I10 Actions: ORDERED - metoprolol, 150 mg = 3 cap, Oral, Daily, # 90 cap, 4 Refill(s), Pharmacy: [facility], 160.02, cm, 07/27/23 9:54:00 EDT, Height, 101.6, kg, 07/27/23 10:06:00 EDT, Weight Dosing COMPLETED - 84503 Office/Outpatient Visit - New Patient, Level 4 (45-59 min), 07/27/23 9:42:00 EDT,Hypertensive disorder COMPLETED - CV ECG Clinic, 07/27/23 9:54:00 EDT, Routine, Reason: Other (please specify), Stop dateand time 07/27/23 9:54:00 EDT, Hypertensive disorder, ORD_SET_REQ_DT_RANGE, Sultana's Internal Person Id FUTURE - Follow-Up Appointment Request NCTY, *Est. 01/27/24 +/- 28 days, Future Order, In [facility], [facility] ?? Problem List/Past Medical History Ongoing Acute non-ST [...] of vesicouterine fistula; with hysterectomy (1989) Medications What How Much When Why Instructions New metoprolol (metoprolol succinate 50 mg oral capsule, extended release) 3 Capsules Oral (given by mouth) Every day Hypertensive disorder Refills: 4 Pickup at [facility] 4152 Unchanged albuterol (albuterol 90 mcg/ inh aerosol [...] (traZODone 50 mg oral tablet) Pharmacy Information [facility] 4156: [address] [place] [address] [phone] Allergies AmLODIPine Besylate Bactrim acetaminophen-hydrocodone??(Skin rash) doxycycline??(Skin [...] 23-polyvalent vaccine 07/02/2015 Recorded Electronically Signed on 07/27/2023 10:34 EDT Kervin Alejandre MD Patient Care team information Care Team Personnel Name: Nya Hernandez BOTTOM BLEACHER Position: PowerChart View Only Member Role: Primary Care Physician Address: Address: [address] [place] [id number]- Care Team Related Persons Name: DENISE KONG Address: Home [address], [phone]
--- OUTSIDE RECORDS SUMMARY | 2023-12-28 16:17 | XMS_ITS | Continuity of Care Document ---
Author Organization [facility] Address [address] [place] [address] Care Team Providers Care Correction Officer Reformatory Name Role Phone Marco Dyer Primary Care Physician Encounter NCTY_[place] Date(s): 04/28/23 - 04/28/[address] [address] Encounter Diagnosis Oral mass(Discharge Diagnosis) - 04/28/23 Discharge Disposition: Home or Self Care Attending Physician: Keon Rico MD Admitting Physician: Keon Rico MD Referring Physician: Keon Rico MD Allergies, Adverse Reactions, Alerts Substance Reaction Severity Status doxycycline Skin rash Unknown Active acetaminophen-hydrocodone Skin rash Unknown Ac tive sulfADIAZINE Skin rash Unknown Active Bactrim Unknown Active AmLODIPine Besylate 1 Severe Active 1Leg and feet swelling, severe Assessment and Plan Future Appointments Diagnostic Tests Pending * Non EMERGENCY [facility] EMT/FNA Cytology [facility] 04/28/23 Immunizations Given and Recorded Vaccine Date Status [...] information Care Team Personnel Name: Nya Hernandez ORTHOTICS PROSTHETICS TECHNICIAN Position: PowerChart View Only Member Role: Informed Provider Address: Address: [address] [place], [place] [address] Name: Marco Dyer MD Position: Physician Member Role: Primary Care Physician Address: Address: [address] [place] [address] Care Team Related Persons Name: TANG KONG Address: Home [address], [id number]
--- OUTSIDE RECORDS SUMMARY | 2023-12-28 16:17 | XMS_ITS | Continuity of Care Document ---
Author Organization 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) - 07/15/23 Neoplasm of uncertain behavior of the minor salivary glands(Final) - Discharge Disposition: Home or Self Care [...] Plan Future Appointments Diagnostic Tests Pending * Surgical Pathology [facility] 07/15/23 Functional Status 07/15/23 Recent Travel History No recent travel Immunizations Given and Recorded Vaccine Date Status [...] swallow, # 210 mL, 0 Refill(s), Pharmacy: [facility], 160, cm, 07/15/23 7:03:00 EDT, [...] 0 Refill(s), 07/22/23 7:58:00 AM CDT, Pharmacy: [facility], 160, cm, 07/15/23 7:03:00 EDT, [...] 2 2021 Completed Amputated at lower thigh 3 2020 Completed Closure of vesicouterine fis nicholas; with hysterectomy 1989 Completed 1Transoral excision of pleomorphic adenoma 2heart attack 3due to blood clot Vital Signs Most recent to oldest [Reference Range]: 1 2 3 Temperature Oral [35.8-37.3 Deg C] 36.7 Deg C (07/15/23 7:03 AM) Temperature Temporal Artery [36-38 Deg C] 36.0 Deg C (07/15/23 9:35 AM) 36.0 Deg C (07/15/23 9:05 AM) 36.6 Deg C (07/15/23 8:48 AM) Temperature Temporal Artery (DegF) [97.3-100 Deg F] 96.8 Deg F *LOW* (07/15/23 9:35 AM) 96.8 Deg F *LOW* (07/15/23 9:05 AM) 97.88 Deg F (07/15/23 8:48 AM) Peripheral Pulse Rate [60-100 bpm] 71 bpm (07/15/23 9:35 AM) 76 bpm (07/15/23 9:20 AM) 91 bpm (07/15/23 9:05 AM) Heart Rate Monitored [60-100 bpm] 70 bpm (07/15/23:35 AM) 77 bpm (07/15/23 9:20 AM) 91 bpm (07/15/23 9:05 AM) Respiratory Rate [12-24 br/min] 19 br/min (07/15/23 9:35 AM) 19 br/min (07/15/23 9:20 AM) 19 br/min (07/15/23 9:05 AM) Blood Pressure [90-140/60-90 mmHg] 105/58mmHg (07/15/23 9:35 AM) 102/80mmHg (07/15/23 9:20 AM) 135/45mmHg (07/15/23 9:05 AM) Mean Arterial Pressure, Cuff [65-140 mmHg] 74 mmHg (07/15/23 9:35 AM) 87 mmHg (07/15/23 9:20 AM) 75 mmHg (07/15/23 9:05 AM) Weight 102 kg (07/15/23 7:03 AM) Weight Dosing 102.000 kg (07/15/23 7:03 AM) Weight Estimated 102.97 kg (07/08/23 1:45 PM) Height 160 cm (07/15/23 7:03 AM) Body Mass Index 39.84 kg/m2 (07/15/23 7:03 AM) Body Mass Index Estimated 40.21 kg/m2 (07/08/23 1:45 PM) Height/Length Estimated 160.02 cm (07/08/23 1:45 PM) Social History Social History Type Response Tobacco Former tobacco user Tobacco Use:. 1 Sex Female 1quit over a month ago Hospital Discharge Instructions Patient Education 07/15/2023 08:28:28 ss Post General Anesthesia / Procedure Dischage Instructions (NCCLAMPRON) General Post Anesthesia / Sedation Discharge Instructions Activities: Do not attempt to drive a vehicle or operate power equipment of any kind for at least 24 hours after discharge from the hospital. Do not consume alcoholic beverages or other mood-altering drugs on the day of surgery. Mild irritation at needle site: Apply warm, moist pack to area for 20 minutes four times a day for 2-3 days. Call physician if persistent redness and/or drainage at needle site. Go to ER or Call the office if: Fever within 24 hours after procedure / Surgery Uncontrollable pain even when taking pain medications as prescribed Discharge instructions * Cheri Olmedo: PERFORM Event Display: Discharge Instructions Authored Date: [id number] ADAIR KONG :1965 Age:58 years Sex:Female Visit Date:07/15/2023 Primary Care Physician: Nya Hernandez VASCULAR PHYSICIAN Hospital Discharge Instructions We would like to thank you for allowing us to assist you with your healthcare needs. The following includes patient education materials and information regarding your injury/illness. Your Next Steps Instructions From Your Care Team Mouth wash (Peridex) twice daily for seven days. Resume Eliquis/Plavix on Wednesday, 07/18.?? Tramadol prescribed as needed for pain control.? Follow up as scheduled on 07/30/23. ?? Sutures will fall out in about 2 weeks.?? Cold, soft food/drink for the first 48 hours.?? Scheduled Future Appointments Wednesday 9:30 AM EDT ?? With: Odilon Bridges PT, DPT Where: [facility] [address] [place] [address] Status: Confirmed Wednesday 10:20 AM EDT ?? With: Kervin Alejandre MD Where: [facility] [address] [place] [address] Status: Confirmed Wednesday 10:00 AM EDT ?? With: Keon Rico MD Where: [facility] [address] [place] [address] Status: Confirmed Medications What How Much When Why Instructions Next Dose New chlorhexidine topical (Peridex 0.12% mucous membrane liquid) 15 Milliliters Oral (given by mouth) 2 times a day Duration: 7 Days swish and spit; do not swallow ?? Pickup at [facility] New traMADol (traMADol 50 mg oral tablet) 1 tab Oral (given by mouth) Every 6 hours as needed for as needed for pain postop pain Duration: 7 Days Pickup at [facility] 4154 Unchanged albuterol (albuterol 90 mcg/ inh aerosol [...] (traZODone 50 mg oral tablet) Pharmacy Information [facility] 4156: [address] [place] [address] [phone] Your Summary Your Care Team Admitting Physician - Keon Rico MD Attending Physician - Keon Rico MD Primary Care Physician - Nya Hernandez NP Referring Physician - Keon Rico MD Tests Performed/Pending Surgical Pathology [facility]?-- Results Pending -- Education Materials General Post Anesthesia / Sedation Discharge Instructions ? Activities: Do not attempt to drive a vehicle or operate power equipment of any kind for at least 24 hours after discharge from the hospital. ? Do not consume alcoholic beverages or other mood-altering drugs on the day of surgery. ? Mild irritation at needle site: Apply warm, moist pack to area for 20 minutes four times a day for 2-3 days. ? Call physician if persistent redness and/or drainage at needle site. ? Go to ER or Call the office if: ? Fever within 24 hours after procedure / Surgery ? Uncontrollable pain even when taking pain medications as prescribed Patient/Director Hr Communications Signature Patient Name:ADAIR KONG I have received this information and my questions have been answered. Patient/Director Hr Communications Name: Patient/Director Hr Communications Signature: Relationship to Patient: Witness Name/Signature: Date: Electronically Signed on: 07/15/2023 09:30 EDTSigned by:ZAHIRA History and physical note * Keon Rico MD: PERFORM Event Display: History and Physical Authored Date: [id number] ADAIR KONG :1965 Age:58 years Sex:Female Visit Date:07/15/2023 Primary Care Physician: Nya Hernandez NP History of Present Illness Patient presents for excision of an oral mass.? First noticed??~1.5 years ago that has wax and waned in size. This was previously evaluated in our office on 09/01/22 with discussion on management options and plan to proceed with transoral??excisionof her salivary gland neoplasm that hasn't been completed yet. ?? Since her last visit, her mass has grown in size and has become more problematic with eating and often times will become lodged between her teeth with need to manually mobilize it to keep chewing effectively. Occasionally she has a foul taste in her mouth and can feel it draining but she denies seeing any drainage or ability to characterize it. Denies any difficulty with swallowing, evidence of facial weakness or altered sensation. ?? Of note, she is currently taking Plavix and Eliquis for history of DC and PE. ?? She underwent FNA by Dr. Gavin on 04/28/23. Pathology as noted below: ?? AP FINAL DIAGNOSIS A. ??SUBCUTANEOUS MASS (1.9 CM), RIGHT FACIAL, ULTRASOUND-GUIDED FINE NEEDLE?? ASPIRATION:- Pleomorphic adenoma. ??See comment. ?? Review of Systems A complete 12 point ROS was obtained and negative except for those mentioned in the HPI.? Physical Exam ?Vitals & Measurements ?T:??36.2?C ??(Tympanic)?? HR:??67??(Peripheral)?? BP:??130/78?? SpO2:??98%?HT:??160??cm?? WT:??102.97??kg?? BMI:??40.22?? BSA:??2.14? General: NAD, A+O x4 ?? HEENT: Approximately??2.0 cm??neoplasm??in the right buccal space, mobile. Attempted bimanual expression of saliva from Malu's duct but unable to result in meaningful drainage. No overlying mucosal ulcerations or changes No regional LAD ?? Pulm: Non-labored breathing pattern ?? Cardio: RRR ?? Abdominal: Soft, NT, ND ? Assessment/Plan Oral mass??K13.79 ??58 yo F presents for further evaluation and care of??a salivary gland neoplasm??which has increased in size since her last visit. 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 ?? We discussed the natural history of pleomorphic adenomas and the management options, including referral to ENT, however, she wishes to proceed with surgery here at [facility].? Risk, benefits and alternatives to the procedure were discussed with the patient in detail. Risk, including but not limited to, bleeding, infection, recurrent lesion,??injury to nerve which may lead to temporary or permanent deficit, salivary fistula,??incomplete resection, need to reoperate, failure to resolve symptoms and pain were discussed with the patient who understood these risks and requested to proceed as planned.? Answered all questions. Patient understood and agreed to this plan. I have reviewed the EMR, including records from PCP, specialists along with review of imaging/diagnostics, which were discussed with the patient where applicable to current presentation. ?Note was created with the assistance of a remote scribe,??Tramaine Wilson. Electronically Signed on 07/15/23 07:57 AM Keon Rico MD Patient Care team information Care Team Personnel Name: Nya Hernandez VASCULAR PHYSICIAN Position: PowerChart View Only Member Role: Primary Care Physician Address: Address: [address] [place] [id number] Care Team Related Persons Name: TANG KONG Address: Home [address] [phone]
--- OUTSIDE RECORDS SUMMARY | 2023-12-28 16:17 | XMS_ITS | Continuity of Care Document ---
Author Organization [facility] Address [address] [place] [address] Care Team Providers Care General Operations Agent Name Role Phone Nya Hernandez Primary Care Physician [phone] Encounter [facility] [id number] Date(s): 08/15/23 - 08/15/[address] [address] Encounter Diagnosis Left leg pain(Discharge Diagnosis) - 08/15/23 Discharge Disposition: Home or Self Care Attending Physician: Ricky Son MD Admitting Physician: Ricky Son MD Allergies, Adverse Reactions, Alerts Substance Reaction Severity Status doxycycline Skin rash Unknown Active acetaminophen-hydrocodone Skin rash Unknown Ac tive sulfADIAZINE Skin rash Unknown Active Bactrim Unknown Active AmLODIPine Besylate 1 Severe Active 1Leg and feet swelling, severe Assessment and Plan Extracted from: Title:Clinical Document Author:Gaby Mendoza te:08/15/23 Diagnosis: 1. Left leg pain Comment: Diagnosis: Lower leg pain-swelling Comment: Extracted from: Title:ED Provider Note Author:Gumaro Crabtree MD Date:08/15/23 Assessment/Plan 1.??Left leg pain??M79.605 Ordered: Discharge Patient, 08/15/23 14:47:00 EDT, Home Independently, Constant Indicator ?? Follow Up With When Contact Information Nya Hernandez ELECTROTYPE FINISHER Within 1 week [address] [place] [address]- ?? Additional Instructions: Future Appointments Immunizations Given and Recorded Vaccine Date Status Refusal Reason pneumococcal 13-valent conjugate vaccine 05/27/16 Recorded pneumococcal 23-polyvalent vaccine 07/02/15 Record ed Medications albuterol 90 mcg/inh aerosol inhaler 0 Refill(s) Start Date: 10/29/21 Status: Ordered amoxicillin-clavulanate 875 mg-125 mg oral tablet 1 tab, Oral, every 12 hr, # 10 tab, 0 Refill(s), Pharmacy: [id number], 160, cm, 247:03:00 EDT, Height, [...] Daily, # 270 tab, 3 Refill(s), Pharmacy: [id number], 160.02, cm, 07/27/23 9:54:00 EDT, [...] swallow, # 210 mL, 0 Refill(s), Pharmacy: [id number], 160, cm, 07/15/23 7:03:00 [...] Laboratory List Name Date CBC w/ Diff 08/15/23 Comprehensive Metabolic Panel 08/15/23 Automated Diff 08/15/23 Most recent to oldest [Reference Range]: 1 WBC [5.0-10.0 x10^3/mcL] 11.7 x10^3/mcL *HI* (08/15/23 2:14 PM) RBC [4.1-5.3 x10^6/mcL] 4.8 x10^6/mcL (08/15/23 2:14 PM) Neutro Auto [40.0-75.0 %] 66.0 % (08/15/23 2:14 PM) Lymph Auto [20.0-50.0 %] 20.2 % (08/15/23 2:14 PM) Granite Auto [2.0-15.0 %] 8.1 % (08/15/23 2:14 PM) Basophil Auto [0.0-1.0 %] 0.8 % (08/15/23 2:14 PM) BUN [7-18 mg/dL] 17 mg/dL (08/15/23 2:14 PM) Glucose Level [74-106 mg/dL] 104 mg/dL (08/15/23 2:14 PM) Potassium Level [3.5-5.1 mmol/L] 3.7 mmo l/L (08/15/23 2:14 PM) MCV [80.0-96.0 fL] 92.2 fL (08/15/23 2:14 PM) AST [15-37 unit/L] 13 unit/L *LOW* (08/15/23 2:14 PM) ALT [14-59 unit/L] 29 unit/L (08/15/23 2:14 PM) MCHC [31.0-35.0 g/dL] 32.2 g/dL (08/15/23 2:14 PM) Sodium Level [136-145 mmol/L] 140 mmol/L (08/15/23 2:14 PM) Hct [37.0-47.0 %] 44.7 % (08/15/23 2:14 PM) Calcium Level [8.5-10.1 mg/dL] 8.9 mg/dL (08/15/23 2:14 PM) Albumin Level [3.4-5.0 g/dL] 3.4 g/dL (08/15/23 2:14 PM) Protein Total [6.4-8.2 g/dL] 6.6 g/dL (08/15/23 2:14 PM) MCH [26.0-32.0 pg] 29.7 pg (08/15/23 2:14 PM) Neutro Absolute 7.7 x10^3/mcL *NA* (08/15/23 2:14 PM) Bilirubin Total [0.2-1.0 mg/dL] 0.9 mg/d L (08/15/23 2:14 PM) Hgb [12.0-16.0 g/dL] 14.4 g/dL (08/15/23 2:14 PM) Alk Phos [46-146 unit/L] 115 unit/L (08/15/23 2:14 PM) Platelets [130-450 x10^3/mcL] 342 x10^3/ mcL (08/15/23 2:14 PM) CO2 [21-32 mmol/L] 31 mmol/L (08/15/23 2:14 PM) eGFR Non-AA [>=60] 94 (08/15/23 2:14 PM) eGFR AA [>=60] 94 (08/15/23 2:14 PM) Chloride Level [98-107 mmol/L] 103 mmol/ L (08/15/23 2:14 PM) RDW-CV [11.5-14.5 %] 14.0 % (08/15/23 2:14 PM) Imm Gran Auto [0.0-0.9 %] 0.7 % (08/15/23 2:14 PM) Creatinine Level [0.55-1.02 mg/dL] 0.73 mg/dL (08/15/23 2:14 PM) Eos, Auto [1.0-6.0 %] 4.2 % (08/15/23 2:14 PM) Vital Signs Most recent to oldest [Reference Range]: 1 Temperature Temporal Artery [36-38 Deg C ] 36.0 Deg C (08/15/23 1:12 PM) Peripheral Pulse Rate [60-100 bpm] 62 bp m (08/15/23 1:12 PM) Respiratory Rate [12-24 br/min] 18 br/mi n (08/15/23 1:12 PM) Blood Pressure [90-140/60-90 mmHg] 124/5 5mmHg (08/15/23 1:12 PM) Mean Arterial Pressure, Cuff [65-140 mmH g] 78 mmHg (08/15/23 1:12 PM) Weight Estimated 102.51 kg (08/15/23 1:12 PM) Body Mass Index Estimated 40.04 kg/m2 (08/15/23 1:12 PM) Height/Length Estimated 160 cm (08/15/23 1:12 PM) Social History Social History Type Response Tobacco Former tobacco user Tobacco Use:. 1 Sex Female 1quit over a month ago Hospital Discharge Instructions Follow Up Care 08/15/2023 12:57:32 With:Nya Hernandez ELECTROTYPE FINISHER Address: [address] [place], [place] [id number] When:1 week Physician Emergency department Note * Gumrao Crabtree MD: PERFORM Event Display: ED Note Physician Authored Date: [id number] ADAIR KONG :1965 Age:58 years Sex:Female Visit Date:08/15/2023 Primary Care Physician: Nya Hernandez NP Basic Information Time Seen: Gumaro Crabtree MD / 08/15/2023 13:30 Chief Complaint Pt c/o left foot and leg pain and swelling. Calf tender to the touch, hx of DVT, on blood thinners.Pt also on diuretics but has noticed increased swelling. History Of Present Illness: 58-year-old lady??presents today for evaluation of left foot and leg swelling.?? 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 ??Does take furosemide??20 mg daily and feels like she is been having good output. ??Over the last couple of days??has had increasing swelling and some pain diffusely throughout the lower leg. ??No significant redness. ??Does note that she had a fall couple days ago and essentially sat down onto the ankle??and wonders if this may have contributed.?? She is on Eliquis and Plavix, previous history of DVT. ??No other concerns Review of Systems: As in HPI Physical Exam Vitals & Measurements T:??36.0?C ??(Temporal Artery)?? HR:??62??(Peripheral)?? RR:??18?? BP:??124/55?? SpO2:??95%?? HT:??160??cm?? WT:??102.51??kg??(Estimated)?? BMI:??40.04?? Pain Score:??7?? O2 Therapy:??Room air?? Vital signs and nursing notes reviewed ?? CONSTITUTIONAL: _well appearing in no acute distress, pleasant and good historian SKIN: _Warm, dry, and intact without rash EYES: _extraocular movements are grossly intact, clear conjunctiva HENT: _Normocephalic, atraumatic, moist mucus membranes NECK: _no obvious swelling, normal range of motion PULMONARY: _normal chest rise and fall, no respiratory distress or stridor CARDIOVASCULAR: _regular rate, distal extremities are warm and well perfused GASTROINTESTINAL: _nondistended GENITOURINARY: _deferred NEUROLOGIC: _normal speech, moves all extremities with equal strength and coordination MUSCULOSKELETAL: _Right AKA, left foot is warm, dry, well-perfused, minimal erythema, there is??trace to 1+ pitting edema,??no??focal tenderness, no particular bony tenderness PSYCHIATRIC: _normal mood and affect Medical Decision Making: ? On my initial evaluation the patient appears generally well and non-toxic, they engage and answer questions appropriately, hemodynamically stable, no evidence of tachycardia, easy WOB with SpO2 saturation upper 90s to 100% on room air, afebrile by oral temperature.Differential includes but is not limited to hydrostatic edema,??consider DVT although she is noted to be anticoagulated??and tolerating well yielding lower suspicion,??currently no??clear signs of??infection including no??erythema, warmth, consider trauma??(fracture, dislocation, sprain, strain) given the fall recently.?? Will plan to??check limited bedside ultrasound??with comprehensive study ordered for outpatient??(weekend ultrasound hours) if nondiagnostic,??x-ray, labs Procedure Limited bedside ultrasound DVT study, normal compressibility of popliteal vein??without echogenic material intraluminally,??no superficial thrombophlebitis noted over area of concern No Qualifying Data Reexamination/Reevaluation Independent review of x-ray does not show obvious fracture or dislocation.?? Limited bedside ultrasound does not show obvious DVT or superficial thrombophlebitis.?? Labs reviewed showed normal??cell counts, kidney function and electrolytes.?? Discussed with her she can double up her furosemide from20 to 40 mg the next 3 days to see if this is helpful.?? Stat order for outpatient DVT study ordered as well.?? Reviewed return precautions with verbalization understanding agreed. ?? Medical Decision-Making: Clinical lab tests: ordered and reviewed -??Yes Tests in the radiology section of CPT??: ordered and reviewed -??Yes Tests in the medicine section of CPT??: ordered and reviewed -??Yes Independent visualization of images, tracings, or specimens? Yes Assessment/Plan 1.??Left leg pain??M79.605 Ordered: Discharge Patient, 08/15/23 14:47:00 EDT, Home Independently, Constant Indicator ?? Follow Up With When Contact Information Nya Hernandez ELECTROTYPE FINISHER Within 1 week [address] [place] [address]- Additional Instructions: Medication Reconciliation Unchanged albuterol (albuterol [...] and Differential?? LATEST RESULTS?? HISTORICAL RESULTS?? WBC?? 08/15/23 14:14?? 11.7 ??High?? 08/01/23?? 13.9 ??High?? RBC?? 08/15/23 14:14?? 4.8?? 08/01/23?? 5.1?? Hgb?? 08/15/23 14:14?? 14.4?? 08/01/23?? 15.0?? Hct?? 08/15/23 14:14?? 44.7?? 08/01/23?? 45.7?? MCV?? 08/15/23 14:14?? 92.2?? 08/01/23?? 90.0?? MCH?? 08/15/23 14:14?? 29.7?? 08/01/23?? 29.5?? MCHC?? 08/15/23 14:14?? 32.2?? 08/01/23?? 32.8?? RDW-CV?? 08/15/23 14:14?? 14.0?? 08/01/23?? 13.9?? Platelets?? 08/15/23 14:14?? 342?? 08/01/23?? 415?? Neutro Auto?? 08/15/23 14:14?? 66.0?? 08/01/23?? 66.1?? Lymph Auto?? 08/15/23 14:14?? 20.2?? 08/01/23?? 21.7?? Granite Auto?? 08/15/23 14:14?? 8.1?? 08/01/23?? 6.8?? Eos, Auto?? 08/15/23 14:14?? 4.2?? 08/01/23?? 3.5?? Basophil Auto?? 08/15/23 14:14?? 0.8?? 08/01/23?? 1.0?? Imm Gran Auto?? 08/15/23 14:14?? 0.7?? 08/01/23?? 0.9?? Neutro Absolute?? 08/15/23 14:14?? 7.7?? 08/01/23?? 9.2? Routine Chemistry?? LATEST RESULTS?? HISTORICAL RESULTS?? Sodium Level?? 08/15/23 14:14?? 140?? 08/01/23?? 136?? Potassium Level?? 08/15/23 14:14?? 3.7?? 08/01/23?? 3.9?? Chloride Level?? 08/15/23 14:14?? 103?? 08/01/23?? 101?? CO2?? 08/15/23 14:14?? 31?? 08/01/23?? 29?? Alk Phos?? 08/15/23 14:14?? 115?? 08/01/23?? 132?? AST?? 08/15/23 14:14?? 13 ??Low?? 08/01/23?? 14 ??Low?? ALT?? 08/15/23 14:14?? 29?? 08/01/23?? 30?? BUN?? 08/15/23 14:14?? 17?? 08/01/23?? 18?? Glucose Level?? 08/15/23 14:14?? 104?? 08/01/23?? 98?? Creatinine Level?? 08/15/23 14:14?? 0.73?? 08/01/23?? 0.82?? eGFR AA?? 08/15/23 14:14?? 94?? 08/01/23?? 82?? eGFR Non-AA?? 08/15/23 14:14?? 94?? 08/01/23?? 82?? Calcium Level?? 08/15/23 14:14?? 8.9?? 08/01/23?? 8.9?? Protein Total?? 08/15/23 14:14?? 6.6?? 08/01/23?? 7.2?? Albumin Level?? 08/15/23 14:14?? 3.4?? 08/01/23?? 3.6?? Bilirubin Total?? 08/15/23 14:14?? 0.9?? 08/01/23?? 0.6? Electronically Signed on 08/15/2023 15:10 EDT Gumaro Crabtree MD Emergency department Discharge instructions * Gumaro Crabtree MD: PERFORM Event Display: ED Discharge Information Authored Date: [id number] ADAIR KONG :1965 Age:58 years Sex:Female Visit Date:08/15/2023 Primary Care Physician: Nya Hernandez ELECTROTYPE FINISHER Discharge Instructions We would like to thank you for allowing us to assist you with your healthcare needs. The following includes patient education materials and information regarding your injury/illness. Diagnosis from Today's Visit Left leg pain Discharge Vitals Temperature??(Temporal Artery) 96.8 ??F (36.0 ??C) Heart Rate??(Peripheral) 62 Respiratory Rate?? 18 Blood Pressure?? 124/55?? SpO2?? 95% Height?? 62.99 in (160 cm) Weight??(Estimated) 226.03 lb (102.51 kg) BMI?? 40.04 Allergies AmLODIPine Besylate Bactrim acetaminophen-hydrocodone??(Skin rash) doxycycline??(Skin rash) sulfADIAZINE??(Skin rash) What to Do Next Instructions from Your Care Team Thank you for coming to the emergency department today,??we appreciate your patience and it has been our pleasure to take care of you. ?? Our limited, bedside ultrasound did not show a large blood clot. ??The x-rays did not show any broken bones or dislocations. ??Your labs show normal kidney function, electrolytes, and cell counts. ??We have put in a formal ultrasound??to be done hopefully tomorrow to confirm no clots. ??In the meant lance, please continue to take your blood thinners ?? Please follow up with your regular doctor??as soon as possible??and return to the emergency department if you have any new or concerning symptoms such as worsening or uncontrolled pain, fever, new redness, or if you have any other concerns. ?? There are often mild laboratory abnormalities and mild radiographic findings that are not significant during this ER visit but often require further work-up as an outpatient to rule out potentially serious disease.?? Please follow-up with your primary care provider to review all of your results from this visit in more detail. You Need to Schedule the Following Appointments Follow Up with??Nya Hernandez ELECTROTYPE FINISHER When:??Within 1 week Where: [address] [place] [address]- Upcoming Scheduled Appointments Wednesday 9:45 AM EDT ?? With: Odilon Bridges PT, DPT Where: [address] [address] Status: Confirmed Wednesday 8:30 AM EDT ?? With: Chi Zheng PT Where: [address] [address] Status: Confirmed Wednesday 9:45 AM EDT ?? With: Odilon Bridges PT, DPT Where: [address] [address] Status: Confirmed Wednesday 9:00 AM EDT ?? With: Odilon Bridges PT, DPT Where: [address] [address] Status: Confirmed Wednesday 10:00 AM EDT ?? With: Chi Zheng PT Where: [address] [address] Status: Confirmed Wednesday 10:30 AM EDT ?? With: Odilon Bridges PT, DPT Where: [address] [address] Status: Confirmed You were treated today [...] Unchanged traZODone (traZODone 50 mg oral tablet) Tests Performed Lab Test Name Test Result Date/Time WBC 11.7 x10^3/mcL 08/15/2023 14:14 EDT RBC 4.8 x10^6/mcL 08/15/2023 14:14 EDT Hgb 14.4 g/dL 08/15/2023 14:14 EDT Hct 44.7 % 08/15/2023 14:14 EDT MCV 92.2 fL 08/15/2023 14:14 EDT MCH 29.7 pg 08/15/2023 14:14 EDT MCHC 32.2 g/dL 08/15/2023 14:14 EDT RDW-CV 14.0 % 08/15/2023 14:14 EDT Platelets 342 x10^3/mcL 08/15/2023 14:14 EDT Neutro Auto 66.0 % 08/15/2023 14:14 EDT Lymph Auto 20.2 % 08/15/2023 14:14 EDT Granite Auto 8.1 % 08/15/2023 14:14 EDT Eos, Auto 4.2 % 08/15/2023 14:14 EDT Basophil Auto 0.8 % 08/15/2023 14:14 EDT Imm Gran Auto 0.7 % 08/15/2023 14:14 EDT Neutro Absolute 7.7 x10^3/mcL 08/15/2023 14:14 EDT Sodium Level 140 mmol/L 08/15/2023 14:14 EDT Potassium Level 3.7 mmol/L 08/15/2023 14:14 EDT Chloride Level 103 mmol/L 08/15/2023 14:14 EDT CO2 31 mmol/L 08/15/2023 14:14 EDT Alk Phos 115 unit/L 08/15/2023 14:14 EDT AST 13 unit/L 08/15/2023 14:14 EDT ALT 29 unit/L 08/15/2023 14:14 EDT BUN 17 mg/dL 08/15/2023 14:14 EDT Glucose Level 104 mg/dL 08/15/2023 14:14 EDT Creatinine Level 0.73 mg/dL 08/15/2023 14:14 EDT eGFR AA 94 08/15/2023 14:14 EDT eGFR Non-AA 94 08/15/2023 14:14 EDT Calcium Level 8.9 mg/dL 08/15/2023 14:14 EDT Protein Total 6.6 g/dL 08/15/2023 14:14 EDT Albumin Level 3.4 g/dL 08/15/2023 14:14 EDT Bilirubin Total 0.9 mg/dL 08/15/2023 14:14 EDT Patient/Research Anthropologist Signature Patient Name:LEWIS KONGORAEdvin Mortensen I have received this information and my questions have been answered. Patient/Research Anthropologist Name: Patient/Research Anthropologist Signature: Relationship to Patient: Witness Name/Signature: Date: Electronically Signed on: 08/15/2023 14:48 EDTSigned by:[facility] Emergency department Note * Gaby Mendoza: PERFORM Event Display: ED Notes Authored Date: [id number] Discharge summary * Gaby Mendoza: PERFORM Event Display: Discharge Note Authored Date: [id number] * Gaby Mendoza: PERFORM Event Display: Discharge Note Authored Date: [id number] Diagnosis: 1. Left leg pain Comment: Diagnosis: Lower leg pain-swelling Comment: Electronically Signed on 08/15/2023 15:20 EDT Gaby Mendoza Patient Care team information Care Team Personnel Name: Nya Hernandez ELECTROTYPE FINISHER Position: PowerChart View Only Member Role: Primary Care Physician Address: Address: [address] [place] [address]- Care Team Related Persons Name: TANG KONG Address: Home [address] [id number] Name: MALIA KONG Name: MANUELA KONG
--- OUTSIDE RECORDS SUMMARY | 2023-12-28 16:17 | XMS_ITS | Continuity of Care Document ---
Author Organization [facility] Address [address] [place] [address] Care Team Providers Care Sieve Grader Tender Name Role Phone Nya Hernandez Primary Care Physician Encounter [facility] Date(s): 04/08/23 - 04/08/[address] [address] Discharge Disposition: Home Allergies, Adverse Reactions, Alerts Substance Reaction Severity [...] information Care Team Personnel Name: Nya Hernandez OWNER OPERATOR TANKER TRUCK DRIVER Position: PowerChart View Only Member Role: Informed Provider Address: Address: [address] [place] [address] [place] Care Team Related Persons Name: TANG KONG Address: Home [address] [id number]
--- OUTSIDE RECORDS SUMMARY | 2023-12-28 16:18 | XMS_ITS | Encounter Summary ---
Author Organization [facility] [place] Hernandez [address] Care Team Providers Care Svp Name Role Phone Nya Hernandez SERGIO Primary Care Provider [phone] Encounter Details Date Type Department Care Team (Late st Contact Info) Description 07/24/2022 11:30 PM EDT Ancillary Procedure Radiology [facility] at [facility] [place] [address] Social History Tobacco Use Types Packs/Day Years Used Date Smoking Tobacco: Former Cigarettes 1 40 0 10/07/1981 - 10/07/2021 Smokeless Tobacco: Never Comments:never vape Alcohol Use Standard Drinks/Week Comments Not Currently 0 (1 standard drink = 0.6 oz pur e alcohol) none since 06/2020 [facility] Inpatient Questions Answer Date Recorded Does Anyone Try to Keep You From Having Contact with Others or Doing Things Outside Your Home? no 07/25/2022 Feels Threatened by Someone no 07/07 Feels Unsafe at Home or Work/School no 07/25/2022 Physical Signs of Abuse Present no 07/25/2022 Sex and Gender Information Value Date Recorded Sex Assigned at Not on file Gender Identity Not on file Sexual Orientation Not on file documented as of this encounter Plan of Treatment Not on file documented as of this encounter Procedures Procedure Name Priority Date/Time Associated Diagnosis Comments REQUEST FOR 2ND READ CT ABDOMEN AND PELVIS Routine 07/24/2022 11:26 PM EDT documented in this encounter Results * (ABNORMAL) Request For 2nd Read CT Abdomen & Pelvis (07/24/2022 11:26 PM EDT) Anatomical Region Laterality Modality Abdomen, Pelvis SO Impressions 07/25/2022 6:38 AM EDT 1. ??Obstructing central choledocholithiasis. 2. ??Acute cholecystitis. 3. ??Unexpected finding: Decreased size of fluid collection within fistulous interloop sigmoid band/scar extending to the vaginal fornix and posterior bladder wall. Thank you for letting us participate in the care of this patient. ??If you are a health care provider and have any questions regarding this report, please contact the number below. ??For patients who have questions please contact the health career development director that requested your imaging first. ? 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 Yes TECHNIQUE: Helical CT of the abdomen and pelvis following the intravenous administration of contrast. 90 cc Omnipaque 350 intravenous contrast. Oral contrast was not administered. Study performed July 24, 2022 at [facility]. COMPARISON: March 17, 2022 FINDINGS: Lower chest: Bibasilar atelectasis. No consolidation. No pleural effusion. Liver: Normal size and attenuation without lesions. Bile ducts: 5 mm choledocholithiasis at the central common duct at the level of the ampulla. Mild intra and extrahepatic biliary ductal dilation. Gallbladder: Distended. Mural heterogeneity and edema. Dependent calculus at the neck. Pancreas: Normal attenuation without ductal dilatation. Spleen: Normal. Adrenals: Normal. Kidneys: Hypodense subcentimeter left renal cortical lesion too small to further characterize though I suspect simple cyst. No collecting system dilation. Urinary Bladder: Incompletely distended. No calculi. Smooth-walled. This remains deviated rightward and may reflect postsurgical change. Vasculature: Circumferentially calcified nonaneurysmal abdominal aorta. Patent portal and hepatic veins. Lymph Nodes: Stable small and borderline retroperitoneal lymph nodes. Bowel: Mild diverticulosis. Soft tissue interloop sigmoid tethering to the vaginal fornix. No edema nor stranding to suggest acuity. Normal appendix. Peritoneum and retroperitoneum: No free fluid. No pneumoperitoneum. Decreased size of 11 mm peripherally enhancing fluid collection within interloop soft tissue at the sigmoid colon extending to the vaginal fornix and posterior bladder wall. Stranding in the anterior mesenteric fat to the left of the repaired abdominal wall. Abdominal wall: Status post ventral hernia repair. Healed midline wound. Reproductive organs: Uterus not visualized Osseous structures: Reduced osseous mineralization without acute fracture Resulting Agency Comment Unexpected Finding Meme Torres MD IMG OUTSIDE INTERPRE TATION ORDERABLES documented in this encounter Visit Diagnoses Not on filedocumented in this encounter Care Teams Svp Relationship Specialty Start Date End Date Nya Hernandez, MEAT SELECTOR [address] [place] [address] PCP - General Family Medicine 05/07/21 documented as of this encounter
--- OUTSIDE RECORDS SUMMARY | 2023-12-28 16:18 | XMS_ITS | Encounter Summary ---
Author Organization [facility]ly [facility] [place] [address] Care Team Providers Care Aerial Survey Technician Name Role Phone Nya Hernandez APRN Primary Care Provider +1- [phone] Encounter Details Date Type Department Care Team (Late st Contact Info) Description 06/24/2022 Ancillary Procedure Radiology Library at [facility] [place] [address] Curt Feliz MD [facility] [place] [address] Facial mass Social History Tobacco Use Types Packs/Day Years Used Date Smoking Tobacco: Former Cigarettes 1 40 0 10/07/1981 - 10/07/2021 Smokeless Tobacco: Never Comments:never vape Alcohol Use Standard Drinks/Week Comments Not Currently 0 (1 standard drink = 0.6 oz pur e alcohol) none since 06/2020 Sex and Gender Information Value Date Recorded Sex Assigned at Not on file Gender Identity Not on file Sexual Orientation Not on file documented as of this encounter Plan of Treatment Not on file documented as of this encounter Procedures Procedure Name Priority Date/Time Associated Diagnosis Comments REQUEST FOR 2ND READ CT FACE Routine 06/23/2022 10:24 AM EDT Facial mass documented in this encounter Results * Request for 2nd read CT Face (06/23/2022 10:24 AM EDT) Anatomical Region Laterality Modality Head SO Impressions 06/23/2022 2:43 PM EDT 2.2 cm right facial mass is probably arising from the accessory parotid tissue. A primary salivary gland neoplasm, therefore, is highly favored. Imaging features are concerning for a malignant neoplasm. The right-sided skin thickening is probably an incidental finding related to infection or inflammation, but correlation with direct inspection is warranted. No buccal space mass is noted. Thank you for letting us participate in the care of this patient. ??If you are a health care provider and have any questions regarding this report, please contact the number below. ??For patients who have questions please contact the health care support representative that requested your imaging first. ? Narrative 06/23/2022 2:43 PM EDT EXAMINATION: REQUEST FOR 2ND READ CT FACE CLINICAL HISTORY: Right buccal space mass.; Sending Institution [facility]; Date of exam 20220504; I believe a reinterpretation of this exam may alter care of Patient. Yes TECHNIQUE: Reinterpretation of an outside CT face dated 05/04/2022. COMPARISON: None FINDINGS: A heterogeneously dense right facial mass in the subcutaneous overlying the masseter muscle measures 2.2 cm in size. Margins are mildly ill-defined. This mass is likely arising from the anterior most aspect of accessory parotid tissue and abuts and mildly displaces the parotid duct. No ductal dilatation identified. A few centimeters below is a 1.1 cm focus of skin thickening extending into the subcutaneous fat as identified on series 5 image 15. No other masses are identified. Specifically, no buccal space masses. Paranasal sinuses are clear except for small mucus retention cyst within the antrum of the left maxillary sinus. Visualized portions of the brain unremarkable. The bilateral submandibular glands and left parotid gland are normal. Procedure Note Antonio Hammond MD - 06/23/2022 EXAMINATION: REQUEST FOR 2ND READ CT FACE CLINICAL HISTORY: Right buccal space mass.; Sending Institution [facility]; Date of exam 20220504; I believe a reinterpretation of this exammay alter care of Patient. Yes TECHNIQUE: Reinterpretation of an outside CT face dated 05/04/2022. COMPARISON: None FINDINGS: A heterogeneously dense right facial mass in the subcutaneous overlying the masseter muscle measures 2.2 cm in size. Margins aremildly ill-defined. This mass is likely arising from the anterior most aspectof accessory parotid tissue and abuts and mildly displaces the parotid duct.No ductal dilatation identified. A few centimeters below is a 1.1 cm focus ofskin thickening extending into the subcutaneous fat as identified on series 5image 15. No other masses are identified. Specifically, no buccal space masses. Paranasal sinuses are clear except for small mucus retention cyst withinthe antrum of the left maxillary sinus. Visualized portions of the brain unremarkable. The bilateral submandibular glands and left parotid glandare normal. IMPRESSION 2.2 cm right facial mass is probably arising from the accessory parotidtissue. A primary salivary gland neoplasm, therefore, is highly favored. Imaging features are concerning for a malignant neoplasm. The right-sided skin thickening is probably an incidental finding relatedto infection or inflammation, but correlation with direct inspection iswarranted. No buccal space mass is noted. Thank you for letting us participate in the care of this patient. If youare a health care provider and have any questions regarding this report,please contact the number below. For patients who have questions please contactthe health care support representative that requested your imaging first. Curt Feliz MD IMG OUTSIDE INTERP RETATION ORDERABLES documented in this encounter Visit Diagnoses Diagnosis Facial mass documented in this encounter Care Teams Aerial Survey Technician Relationship Specialty Start Date End Date Nya Hernandez APRN [address] [place] [id number] PCP - General Family Medicine 05/07/21 documented as of this encounter
--- OUTSIDE RECORDS SUMMARY | 2023-12-28 16:18 | XMS_ITS | Encounter Summary ---
Author Organization [facility] [place] [address] Care Team Providers Care Application Technician Name Role Phone Nya Hernandez SERGIO Primary Care Provider +1- [phone] Reason for Visit * Auth/Cert (Routine) Specialty Diagnoses / Procedures Referred By Tomas early Referred To Contact Diagnoses Acute cholecystitis Acute cholecystitis Meme Torres MD [facility] [place] [address] [facility] Referral ID Status Reason Start Date Expiration Date Visits Re quested Visits Authorized [id number] 1 1 Encounter Details Date Type Department Care Team (Late st Contact Info) Description 07/25/2022 10:31 AM EDT Anesthesia Event [place] [address] Anuel Lehman MD [facility] [place] [address] Anesthesia Record Procedure Summary Procedure Name Responsible Anesthesiologist Anesthesia Start Time Anesthesia Stop Time ERCP W/REMOVAL CALCULI/DEBRIS FROM BILARY/PANCREATIC DUCT(S) (WRVU 6.63) (Trunk) Anuel Lehman MD 07/25/22 1031 07/25/22 1131 Events Date Time Event Comment 07/25/2022 1031 AN Verify 1031 Start 1031 An Start Data 1037 An Induction 1039 An Intubation 1040 1045 Anesthesia Ready 1106 Extubation/LMA Out 1131 an stop data 1131 Recovery or ICU Handoff Jaylin ent care was transferred to the destination unit staff after review of the patient's medical history, current anesthetic/surgical status and plan, according to the Provider Handoff Checklist. 1131 Stop Meds Name Total Propofol 150 mg Ondansetron 4 mg Succinylcholine 100 mg Lactated Ringers 400 mL * Agents Name O2 Air N2O Sevoflurane (et) * Blood No blood administrations on file. Lines, Drains, and Airways Type Details Placement Removal (RETIRED) Peripheral IV Line - Single Lumen 07/24/22 (present on admission from OSH); 205107/24/222051 by Gerri Kat RN Incision 06/01/22; 908; anterior; abdomen; 07/25/22; 199906/01/22 09 by Rasheeda Schwarz RN 07/25/221999 by Leyla Soto RN External Catheter 07/24/22; 2051; 07/26/22; 189907/24/222051 by Gerri Kat RN 07/26/221899 by Leyla Soto RN ETT Mask Ventilation: Ea sy (1); ETT Type: Cuffed, Oral; ETT Size: 7 mm; Mac Blade: 3; Notes: Asleep, Pre-O2, Stylette; Attempts: 1; Laryngoscopy Grade: 1; Secured at Teeth: 22 cm; Inserted by: mireya; Removal Date: 07/25/22; Removal Time: 1500 07/25/22 1039 by Bee Cardona MD 07/25/22 1500 by Leyla Soto RN ETT Mask Ventilation: Ea sy (1); ETT Type: Cuffed, Oral; ETT Size: 7 mm; Mac Blade: 3; Notes: Asleep, Pre-O2, Stylette; Attempts: 1; Laryngoscopy Grade: 1; Secured at Teeth: 22 cm; Removal Date: 07/25/22; Removal Time: 1106 07/25/22 1044 by Bee Cardona MD 07/25/22 1106 by Bee Cardona MD documented in this encounter Social History Tobacco Use Types Packs/Day Years Used Date Smoking Tobacco: Former Cigarettes 1 40 0 10/07/1981 - 10/07/2021 Smokeless Tobacco: Never Comments:never vape Alcohol Use Standard Drinks/Week Comments Not Currently 0 (1 standard drink = 0.6 oz pur e alcohol) none since 06/2020 IPV Inpatient Questions Answer Date Recorded Does Anyone [...] on file documented as of this encounter OR Notes * Anesthesia Postprocedure Evaluation - Anuel Lehman MD - 07/25/2022 11:41 AM EDT Department of Anesthesiology Post-procedure Note Patient: Eliza Moya Procedure Summary Date: 07/25/22 Room / Location: [facility] ENDO 2 / [facility] ENDOSCOPY Anesthesia Start: 1031 Anesthesia Stop: 1131 Procedures: ERCP W/REMOVAL CALCULI/DEBRIS FROM BILARY/PANCREATIC DUCT(S) (WRVU 6.63) (Trunk) ERCP W/SPHINCTEROTOMY/PAPILLOTOMY (WRVU 6.5) Diagnosis: Calculus of bile duct with acute cholangitis with obstruction (cholangitis) Surgeons: Sunny Ventura MD Responsible Provider: Anuel Lehman MD Anesthesia Type: general ASA Status: 3 All Anesthesia Providers: Anesthesiologist: Anuel Lehman MD Workforce Specialist: Bee Cardona MD Vitals Value Taken Time BP Temp Pulse Resp SpO2 Pain Level Patient Location: Floor Level of Consciousness: Awake and Alert Pain Management: Satisfactory Analgesia PONV: None Cardiovascular Status: Hemodynamically Stable Respiratory Status: Stable Respiratory Status Postoperative Fluid Status: Intravascular EUvolemia Possible Anesthetic Complications: NONE apparent at time of evaluation Final Primary Anesthesia Type: General (The anesthetic type performed was the same as planned.) Comments: * Anesthesia Preprocedure Evaluation - Anuel Lehman MD - 07/25/2022 9:22 AM EDT Pre-Anesthesia Evaluation for: Eliza Moya a 57 y.o. female. Procedure(s): ERCP (WRVU 5.85) Patient Active Problem List Diagnosis Date Noted ??? *Acute cholecystitis 07/24/2022 ??? Ventral hernia 06/01/2022 ??? CAD (coronary artery disease) 07/29/2021 ??? COPD (chronic obstructive pulmonary disease) 07/29/2021 ??? HTN (hypertension) 07/29/2021 ??? Hypothyroid 07/29/2021 ??? PAD (peripheral artery disease) 07/29/2021 ??? NSTEMI (non-ST elevated myocardial infarction) 06/01/2021 ??? Perforated viscus 05/10/2020 Past Medical History: Diagnosis Date ??? CAD (coronary artery disease) ??? COPD (chronic obstructive pulmonary disease) ??? HTN (hypertension) ??? Hypothyroid ??? PAD (peripheral artery disease) Past Surgical History: Procedure Laterality Date ??? CT PERITONEAL DRAINAGE 05/27/2020 CT Guided Drain Peritoneal 05/27/2020 [facility] RAD CAT SCAN ??? CT PERITONEAL DRAINAGE 05/27/2020 CT Guided Drain Peritoneal 05/27/2020 [facility] RAD CAT SCAN ??? CT PERITONEAL DRAINAGE 05/27/2020 CT Guided Drain Peritoneal 05/27/2020 [facility] RAD CAT SCAN ??? IR CHEST TUBE PLACEMENT BILATERAL 05/15/2020 IR Chest Tube Placement Bilateral 05/15/2020 Ricky Hollis MD [facility] INTERVENTIONL RAD ??? PRO AMPUTATE THIGH, OPEN CIRCULAR Right 05/11/2020 AMPUTATION, ABOVE-KNEE, OPEN, GUILLOTINE (WRVU 10.98) performed by Christine Montgomery MD at [facility] MAIN OR ??? PRO AMPUTATE THIGH, SECONDRY CLOSUR Right 06/13/2020 AMPUTATION, ABOVE-KNEE, SECONDARY CLOSURE OR SCAR REVISION (WRVU 7.29) performed by Christine Montgomery MD at [facility] MAIN OR ??? PRO CHOLECYSTOENTER+DONAVAN-EN-Y+GASTROENT N/A 05/12/2020 @DONAVAN-EN-Y WITH GASTROENTEROSTOMY (WRVU 24.21) performed by Meme Torres MD at [facility] OR ??? PRO EXPLORATION OF ABDOMEN N/A 05/11/2020 @EXPLORATORY LAPAROTOMY, WITH/WITHOUT BIOPSY(S) (WRVU 12.54) performed by Meme Torres MD at [facility] OR ??? PRO GASTROJEJUNOSTOMY N/A 05/12/2020 @GASTROJEJUNOSTOMY (WRVU 22.53) performed by Meme Torres MD at [facility] OR ??? PRO MUSCLE-SKIN FLAP, TRUNK N/A 06/01/2022 FLAP, MYOCUTANEOUS OR FASCIOCUTANEOUS, TRUNK (WRVU 23) performed by Whit Nance MD at [facility] OR ??? PRO REOPEN RECENT ABD EXPLORATORY N/A 05/12/2020 @EXPLORATORY LAPAROTOMY, REOPENING OF RECENT (WRVU 17.63) performed by Meme Torres MD at [facility] OR ??? PRO REOPEN RECENT ABD EXPLORATORY Midline 05/16/2020 @EXPLORATORY LAPAROTOMY, REOPENING OF RECENT (WRVU 17.63) performed by Nakul Vega MD at [facility] OR ??? PRO REOPEN RECENT ABD EXPLORATORY Midline 05/18/2020 @EXPLORATORY LAPAROTOMY, REOPENING OF RECENT (WRVU 17.63) performed by Marco Silver MD at [facility] OR ? ? PRO REPAIR AA HERNIA INITIAL > 10 CM REDUCIBLE N/A 06/01/2022 REPAIR ANT. ABDOMINAL HERNIA(S) (IE, EPIGASTRIC, INCISIONAL, VENTRAL, UMBILICAL, SPIGELIAN), INITIAL, W-WO MESH; GREATER THAN 10 CM, REDUCIBLE (WRVU 13.94) performed by Whit Nance MD at [facility] OR ??? PRO REPAIR PERF DUOD/JIMENA ULC-WND/INJ N/A 05/11/2020 GASTRORRHAPHY, SUTURE OF PERFORATED, ULCER, WOUND, INJURY (WRVU 22.83) performed by Meme Torres MD at [facility] OR ??? PRO RESECT SMALL INTEST, SINGL RESEC/ANAS N/A 05/12/2020 @BOWEL RESECTION, SMALL INTESTINE SINGLE ANASTOMOSIS (WRVU 20.82) performed by Meme Torres MD at [facility] MAIN OR ??? PRO SUTURE ABD WALL-DEHIS/EVISCER Midline 05/20/2020 @SUTURE, SECONDARY, OF ABD WALL FOR EVISCERATION OR DEHISCENCE (WRVU 12.41) performed by Antonio Akbar MD at [facility] MAIN OR ? ? PRO UNLISTED PX ABD PRTM&OMENTUM N/A 05/20/2020 SUTURE OMENTUM (WRVU 11.1) performed by Antonio Akbar MD at [facility] MAIN OR ??? PRO UNLISTED PX ABDOMEN MUSCULOSKELETAL SYSTEM Midline 05/16/2020 WOUND CLOSURE, ABDOMINAL, PARTIAL W/ WOUND VAC (WRVU 6.39) performed by Nakul Vega MD at [facility] MAIN OR ??? PRO UPPER GI ENDOSCOPY, BIOPSY N/A 11/25/2020 EGD WITH BIOPSY (WRVU 2.49) performed by Kervin Rubio MD at [facility] ENDOSCOPY Social History Tobacco Use ??? Smoking status: Former Packs/day: 1.00 Years: 40.00 Pack years: 40.00 Types: Cigarettes Quit date: 10/07/2021 Years since quittin.7 ??? Smokeless tobacco: Never ??? Tobacco comments: never vape Substance Use Topics ??? Alcohol use: Not Currently Comment: none since 06/2020 Social History Substance and Sexual Activity Drug Use Never Allergies Allergen Reactions ??? Doxycycline Rash RADHA- unknown ??? Sulfa (Sulfonamide Antibiotics) Rash RADHA- unknown ??? Vicodin [Hydrocodone-Acetaminophen] Other (See Comments) RADHA- unknown Medications: MAR and/or home medications have been reviewed. Physical Exam: Preprocedure Vitals Current as of 07/25/22 0922 BP: 107/61 Pulse: Resp: 17 SpO2: 96 Temp: 36.3 ??C (97.3 ??F) Height: Weight: BMI: IBW: Last edited 07/25/22 0736 by AL Airway Assessment: Mallampati: III TM distance: >3 FB Neck ROM: full Cardiovascular Assessment: Rhythm: regular Pulmonary Assessment: unlabored breathing Dental Assessment: Misc Assessment: IV access: Peripheral line Last Filed Perioperative Cognitive Screening None Anesthesia Plan: ASA 3 general, with a(n) intravenous induction Medical record reviewed. 57 y.o. female with PMHh/o COPD, PAD s/p right AKA, hypertension, CAD s/p PCI (05/2021), a fib, perforated duodenal ulcer in 2020 s/p multiple ex-laps and Donavan-en-Y duodenojejunostomy, and s/p recent extensive repair of large incisional hernia 05/2022 who presented as a transfer for acute cholecystitis. Now to undergo ERCP. Plan: [facility] - Other Informed Consent: Plan discussed with resident and attending. Anesthesia Screening documented in this encounter Plan of Treatment Not on file documented as of this encounter Visit Diagnoses Not on filedocumented in this encounter Administered Medications Inactive Administered Medications - up to 3 most recent administrations Medication Order MAR Action Action Date Dose Rate Site lactated ringers infusion Intravenous, CONTINUOUS PRN, Starting on 07/25/22 at 1031, Until 07/25/22 at 1138, Anesthesia Intra-op New Bag 07/25/2022 10:31 AM EDT ondansetron (pf) (Zofran) (2 mg/mL) injection Intravenous, PRN, Starting on 07/25/22 at 1112, Until 07/25/22 at 1138, Anesthesia Intra-op, Routine Given 07/25/2022 11:12 AM EDT 4 mg propofoL (Diprivan) 10 mg/mL bolus injection (Anesthesia) Intravenous, PRN, Starting on 07/25/22 at 1037, Until 07/25/22 at 1138, Anesthesia Intra-op Given 07/25/2022 10:37 AM EDT 150 mg succinylcholine (Anectine;Quelicin) (20 mg/mL) injection Intravenous, PRN, Starting on 07/25/22 at 1039, Until 07/25/22 at 1138, Anesthesia Intra-op, Routine Given 07/25/2022 10:39 AM EDT 100 mg documented in this encounter Care Teams Application Technician Relationship Specialty Start Date End Date Nya Hernandez APRN [address] [place] [id number] PCP - General Family Medicine 05/07/21 documented as of this encounter
--- OUTSIDE RECORDS SUMMARY | 2023-12-28 16:18 | XMS_ITS | Encounter Summary ---
Author Organization [facility] [place] [address] Care Team Providers Care Electric Deicer Inspector Name Role Phone Nya Hernandez SERGIO Primary Care Provider +1- [phone] Encounter Details Date Type Department Care Team (Late st Contact Info) Description 07/25/2022 Orders [place] [address] SystClaudette bloom MD [facility] [place] [address] Calculus of bile duct with acute cholangitis with obstruction Social History Tobacco Use Types Packs/Day Years Used Date Smoking Tobacco: Former Cigarettes 1 40 0 10/07/1981 - 10/07/2021 Smokeless Tobacco: Never Comments:never vape Alcohol Use Standard Drinks/Week Comments Not Currently 0 (1 standard drink = 0.6 oz pur e alcohol) none since 06/2020 [facility] Inpatient Questions Answer Date Recorded Does Anyone [...] as of this encounter Plan of Treatment Scheduled Orders Name Type Priority Associated Diagnoses Orde r Schedule ENDOSCOPY CASE REQUEST: ERCP (WRVU 5.85) Procedures Routine Calculus of bile duct with acute cholangitis with obstruction Ordered: 07/25/2022 documented as of this encounter Visit Diagnoses Diagnosis Calculus of bile duct with acute cholangitis with obstruction Calculus of bile duct without mention of cholecystitis, with obstruction documented in this encounter Care Teams Electric Deicer Inspector Relationship Specialty Start Date End Date Nya Hernandez, SERGIO [address] [place] [address] PCP - General Family Medicine 05/07/21 documented as of this encounter
--- OUTSIDE RECORDS SUMMARY | 2023-12-28 16:18 | XMS_ITS | Encounter Summary ---
Author Organization [facility] [place] [address] Care Team Providers Care Rate Clerk Passenger Name Role Phone Nya Hernandez SERGIO Primary Care Provider +1- [phone] Encounter Details Date Type Department Care Team (Latest Contact Info) Description 06/29/2022 9:45 AM EDT TH Visit (TeleHealth) [place] [address] Whit Nance MD [facility] [place] [address] History of incisional hernia repair; Muscle spasm Social History Tobacco Use Types Packs/Day Years [...] on file documented as of this encounter Progress Notes * Whit Nance MD - 06/29/2022 9:45 AM EDT [facility] General Surgery Telehealth Postoperative Follow up Procedure: Open incisional hernia repair with bilateral TAR and mesh placement 3/27/23 Subjective: I spoke with Ms. Moya today and she is doing well. She says her incision is looking better, still some scabbing. She has some trouble laying on her side. When she reaches up she can feel a muscle pulling. She is otherwise eating a drinking well. 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 Wants to get off gabapentin. Assessment/Plan: She is recovering well overall. Still has some scabbing of her incision. I have asked them to send me a photo over the portal. I prescribed robaxin for her muscle spasms but would like her to see her PCP for pain in the future once this script is done. Will plan for a video visit in 3-4 weeks. Whit Nance MD General Surgery Minimally Invasive Surgery [phone] documented in this encounter Plan of Treatment Not on file documented as of this encounter Visit Diagnoses Diagnosis History of incisional hernia repair Muscle spasm Spasm of muscle documented in this encounter Care Teams Rate Clerk Passenger Relationship Specialty Start Date End Date Nya Hernandez, AUTOMOTIVE GENERATOR REPAIRER [address] [place] [id number] PCP - General Family Medicine 05/07/21 documented as of this encounter
--- OUTSIDE RECORDS SUMMARY | 2023-12-28 16:18 | XMS_ITS | Encounter Summary ---
Author Organization [facility] [place] [address] Care Team Providers Care Market Basket Maker Name Role Phone Nya Hernandez SERGIO Primary Care Provider [phone] Reason for Visit * Auth/Cert (Routine) Specialty Diagnoses / Procedures Referred By Tomas early Referred To Contact Diagnoses Acute cholecystitis Acute cholecystitis Meme Torres MD [facility] [place] [place] [address] [facility] Referral ID Status Reason Start Date Expiration Date Visits Re quested Visits Authorized [id number] 1 1 Encounter Details Date Type Department Care Team (Late st Contact Info) Description 07/25/2022 3:00 PM EDT - 07/25/2022 4:30 PM EDT Surgery [place] [address] Sunny Ventura MD [facility] [address] ERCP W/REMOVAL CALCULI/DEBRIS FROM BILARY/PANCREATIC DUCT(S) (WRVU 6.63) Social History Tobacco Use Types Packs/Day Years Used Date Smoking Tobacco: Former Cigarettes 1 40 0 10/07/1981 - 10/07/2021 Smokeless Tobacco: Never Comments:never vape Alcohol Use Standard Drinks/Week Comments Not Currently 0 (1 standard drink = 0.6 oz pur e alcohol) none since 06/2020 DH IPV Inpatient Questions Answer Date Recorded Does [...] on file documented as of this encounter Last Filed Vital Signs Vital Sign Reading Time Taken Comments Blood Pressure 118/62 07/25/2022 3:52 PM EDT Pulse - - Temperature 36.9 ??C (98.4 ??F) 07/25/2022 3:52 PM ED T Respiratory Rate 18 07/25/2022 3:52 PM EDT Oxygen Saturation 97% 07/25/2022 3:52 PM EDT Inhaled Oxygen Concentration - - Weight - - Height - - Body Mass Index - - documented in this encounter Discharge Summaries * Ricky Partida MD - 07/27/2022 9:33 AM EDT Images from the original note were not included. General Surgery Discharge Summary Name: Eliza Moya Date of : 1965 Attending: ROBERTA VEGA Date of Admission: 07/24/2022 Date of Discharge: 07/27/22 Reason for admission: Post operative care following: Procedure(s): ERCP W/REMOVAL CALCULI/DEBRIS FROM BILARY/PANCREATIC DUCT(S) (WRVU 6.63) ERCP W/SPHINCTEROTOMY/PAPILLOTOMY (WRVU 6.5) Surgeon(s) and Role: * Sunny Ventura MD - Primary History of Present Illness: Eliza Moya is a 57 y.o. female with PMHh/o COPD, PAD s/p right AKA, hypertension, CAD s/p PCI (05/2021), a fib, perforated duodenal ulcer in 2020 s/p multiple ex-laps and Donavan-en-Y duodenojejunostomy, and s/p recent extensive repair of large incisional hernia 05/2022 who presents to [facility] as a transfer for acute cholecystitis. ?? She began to have RUQ pain this morning when she needed to have a BM and her daughter in law gave her some stool softeners. She states she had a large bowel movement and the RUQ pain persisted. She felt very nauseated, but not enough to throw up. She says it was constant and radiated to her back. She denies any association with eating food. She presented to OSH where they told her she had sludgein her gall bladder. Currently she does not feel the RUQ as badly, but dose endorse that if she presses it, then she does feel it. She currently denies any current N/V, F/C, CP, SOB, and N/T Hospital Course: 07/24/2022: Patient underwent the above procedure and had an uneventful operative course. She was started on IV antibiotics on arrival, which improved her leukocytosis, but she continued tohave abdominal pain. Surgical removal of her gall bladder was considered, but given the extent of her abdominal surgeries in the past, GI was consulted for an ERCP. Her ERCP was notable for a large stone in the CBD, which when removed led to the drainage of pus from behind the stone. No other stones were seen. She was tolerating a diet the next day and her abdominal pain was markedly improved. Prior to discharge on 07/27/22 or hospital day 3, patient's pain was well controlled with oral painmedications, lee catheter was removed, patient was voiding without difficulty, and wound(s) were intact and healing appropriately. Patient was having regular bowel movements, and tolerating a Regular diet. Vitals were within normal limits and patient was determined medically ready for discharge to home. Vital Signs Last value Range last 24hrs Temperature Temp: 36.8 ??C (98.2 ??F) Temp: [36.3 ??C (97.3 ??F)-37 ??C (98.6 ??F)] Heart Rate Heart Rate: -- Blood Pressure BP: 144/69 BP: (125-144)/(56-69) Respiratory Rate Resp: 16 Resp: [16-18] SpO2 SpO2: 91 % SpO2: [90 %-95 %] Physical Exam: GEN: Resting comfortably in bed, pleasant, conversant, NAD. HEENT: Normocephalic, atraumatic, anicteric sclerae CHEST: No increased work of breathing CV: Regular rate. Well perfused. ABD: Soft, mildly tender in RUQ. Large midline scar well healed EXTR: Moving spontaneously. Trace edema. SKIN: Warm and dry. NEURO: Alert and follows commands. Pertinent Lab Data: Recent Labs 07/27/2234607/26/2222807/25/22 0400 07/24/22 2040 WBC 8.1 8.7 8.1 14.7* HGB 9.2* 9.9* 11.1* 11.9 HCT 30.3* 32.4* 35.2* 38.0 PLATELET 409* 380* 418* 468* PT -- -- -- 17.8* INR -- -- -- 1.6 PTT -- -- -- 34 Recent Labs 07/27/2234607/26/22 0939 07/26/2222807/25/22 0400 07/24/22 2040 NA 141 -- 141 141 140 K 4.0 4.2 3.5 3.9 3.8 CL 108* -- 107 106 105 CO2 23 -- 27 28 27 BUN 19* -- 13 11 12 CREATININE 0.66* -- 0.67* 0.71 0.71 GLUCOSE 116 -- 111 112 133 CALCIUM 8.3* -- 7.8* 8.4* 8.5 MAGNESIUM 0.79 -- 0.90 0.80 -- PHOS 2.8 -- 3.0 3.5 -- Medications: Your Medications New Medications Dose Details amoxicillin-clavulanate 875-125 mg tablet Commonly known as: Augmentin Take 1 tablet by mouth 2 times daily for 5 days. 1 tablet Quantity: 10 tablet Refills: 0 Continued medications, unchanged Dose Details albuteroL 90 mcg/actuation HFA Aerosol Inhaler INHALE TWO PUFFS BY MOUTH EVERY 4 TO 6 HOURS NEEDED FOR COUGH Refills: 0 atorvastatin 80 mg tablet Commonly known as: Lipitor Take 1 tablet by mouth every evening. 80 mg Quantity: 90 tablet Refills: 3 clopidogreL 75 mg tablet Commonly known as: Plavix Take 1 tablet by mouth daily. 75 mg Quantity: 90 tablet Refills: 3 docusate sodium 100 mg capsule Commonly known as: Colace Take 1 capsule by mouth 2 times daily as needed for Constipation. 100 mg Refills: 0 Eliquis 5 mg tablet TAKE ONE TABLET BY MOUTH TWICE A DAY Generic drug: apixaban Refills: 0 furosemide 20 mg tablet Commonly known as: Lasix daily. Refills: 0 gabapentin 300 mg capsule Commonly known as: Neurontin Take 1 capsule by mouth Daily at Noon. 300 mg Quantity: 90 capsule Refills: 12 levothyroxine 50 mcg tablet Commonly known as: Synthroid Take 1 tablet by mouth every morning. 50 mcg Quantity: 90 tablet Refills: 3 losartan 50 mg tablet Commonly known as: Cozaar Take 50 mg by mouth daily. 50 mg Refills: 0 methocarbamoL 500 mg tablet Commonly known as: Robaxin Take 1 tablet by mouth 4 times daily as needed. 500 mg Quantity: 20 tablet Refills: 0 multivitamin with minerals 9 mg iron-400 mcg Tablet Commonly known as: Thera M Take 1 tablet by mouth daily. 1 tablet Refills: 0 pantoprazole EC [address] tablet Commonly known as: Protonix Take 1 tablet by mouth daily. Take one tablet by mouth daily for one month. Then you can stop. 40 mg Quantity: 30 tablet Refills: 0 * polyethylene glycoL 17 gram/dose Powder Commonly known as: Miralax Take 17 g by mouth daily. 17 g Refills: 0 * polyethylene glycoL 17 gram oral powder packet Commonly known as: Miralax Take 17 g by mouth daily. 17 g Quantity: 14 each Refills: 0 Trelegy Ellipta 100-62.5-25 mcg Inhale 1 puff into the lungs daily. Generic drug: pdarsiwcscq-eyautxoghxih-hatysvyypq 1 puff Refills: 0 * This list has 2 medication(s) that are the same as other medications prescribed for you. Read thedirections carefully, and ask your doctor or other care provider to review them with you. STOPPED Medications nitroGLYcerin 0.4 mg sublingual tablet Commonly known as: Nitrostat UNREVIEWED medications - Discuss With Your Provider Dose Details traZODone 50 mg tablet Commonly known as: Desyrel Take 0.5 tablets by mouth nightly. 25 mg Quantity: 90 tablet Refills: 3 Allergies: Allergies Allergen Reactions ??? Doxycycline Rash RADHA- unknown ??? Sulfa (Sulfonamide Antibiotics) Rash RADHA- unknown ??? Vicodin [Hydrocodone-Acetaminophen] Other (See Comments) RADHA- unknown Imaging: XR ERCP Result Date: 07/25/2022 See PACS for result report. Request For 2nd Read CT Abdomen & Pelvis Result Date: 07/25/2022 EXAMINATION: REQUEST FOR 2ND READ CT ABDOMEN AND PELVIS CLINICAL HISTORY: 57yoF with extensive prior surgical history of RouxY for duodenal ulcer, recent large incisional hernia repair with mesh, nowhere with concern for cholecystitis.; Sending Institution [facility]; Date of exam [id number]; I believe a reinterpretation of this exam may alter care of Patient. Yes TECHNIQUE: Helical CT of the abdomen and pelvis following the intravenous administration of contrast. 90 cc Omnipaque 350 intravenous contrast. Oral contrast was not administered. Study performed July 24, 2022 at [facility]. COMPARISON: March 17, 2022 FINDINGS: Lower chest: Bibasilar atelectasis. No consolidation. No pleural effusion. Liver: Normal size and attenuation without lesions. Bile ducts: 5 mm choledocholithiasis at the central common duct at the level of the ampulla. Mild intra and extrahepatic biliaryductal dilation. Gallbladder: Distended. Mural heterogeneity and edema. Dependent calculus at the neck. Pancreas: Normal attenuation without ductal dilatation. Spleen: Normal. Adrenals: Normal. Kidneys: Hypodense subcentimeter left renal cortical lesion too small to further characterize though I suspect simple cyst. No collecting system dilation. Urinary Bladder: Incompletely distended. No calculi. Smooth- walled. This remains deviated rightward and may reflect postsurgical change. Vasculature: Circumferentially calcified nonaneurysmal abdominal aorta. Patent portal and hepatic veins. Lymph Nodes: Stable small and borderline retroperitoneal lymph nodes. Bowel: Mild diverticulosis. Soft tissue interloop sigmoid tethering to the vaginal fornix. No edema nor stranding to suggest acuity. Normal appendix. Peritoneum and retroperitoneum: No free fluid. No pneumoperitoneum. Decreased size of 11mm peripherally enhancing fluid collection within interloop soft tissue at the sigmoid colon extending to the vaginal fornix and posterior bladder wall. Stranding in the anterior mesenteric fat to the left of the repaired abdominal wall. Abdominal wall: Status post ventral hernia repair. Healed midline wound. Reproductive organs: Uterus not visualized Osseous structures: Reduced osseous mineralization without acute fracture 1. Obstructing central choledocholithiasis. 2. Acute cholecystitis. 3. Unexpected finding: Decreased size of fluid collection within fistulous interloop sigmoid band/scar extending to the vaginal fornix and posterior bladder wall. Thank you for letting us participate in the care of this patient. Ifyou are a health care provider and have any questions regarding this report, please contact the number below. For patients who have questions please contact the health child care center assistant director that requested your imaging first. Electronically signed by: Rukhsana Vega MD, [facility] ([phone]),at 07/25/2022 6:38 AM Film Library- Storage Only CT Abdomen & Pelvis Result Date: 07/24/2022 This exam is auto-finalizing. It's purpose is for storage only. Film Library- Storage Only DX Chest Result Date: 07/24/2022 This exam is auto-finalizing. It's purpose is for storage only. Outpatient Services/Studies: No discharge procedures on file. PLAN: 14 days of Augmentin Follow up in ACS clinic in 3-4 weeks Disposition: Home Condition at discharge: Stable Instructions Given to Patient at Discharge: Patient Instructions Discharge Instructions You were were admitted and treated for the following diagnosis: Acute cholecystitis CALL YOUR PHYSICIAN IF: 1. You have a fever greater than 101F 2. You have diarrhea or vomiting for >24 hours, or stop having bowel movements and passing flatus 3. You have worsening pain, not controlled with your pain medication. 4. You develop redness, swelling, or new drainage from your wounds Follow up: Future Appointments Date Time Provider Department Center 09/07/2022 8:40 AM Curt Feliz MD [facility] Pain: - You may continue to take tylenol and ibuprofen for pain. Consider taking 650 mg of tylenol every six hours and 400 mg of ibuprofen every 6 hours. You can alternate between the two medications so that you take something every 3 hours. Please decrease the use of these medications as your pain improves. Driving Restrictions: - No driving if you are too sore to enter or exit your vehicle comfortably, or if you are too sore to easily check your blind spot. No driving while using prescription pain medications Activities: - Discuss return to work or school with your provide at your follow up appointment in the trauma clinic. - Increase your activity slowly. If it hurts don't do it, but try again the following day. - You may tire easily, so frequent naps may be necessary.. - Talk with your doctor about when you can return to work or school. - You may take a shower but have someone nearby in case you need help. Diet: Eat a well-balanced diet. Fresh fruits, vegetables and fiber-containing foods are recommended. Thiswill assist in wound healing. Recommendations: - Take it easy for two weeks. Remember, If it hurts, don't do it. - Take several slow, short walks each day for the first two weeks, and gradually increase your distance. We recommend at least 4 times a day. Wound Care: - You can shower per usual routine - Do not submerge wounds under water (avoid spas, pools and bathtubs) until fully healed. - Do not use creams, oils, or ointments on the wound. - See follow-up appointments for removal of sutures/tamra. Comfort: - Some soreness can be expected. - Take your pain medication as needed and prescribed. - Taper use of pain medication as pain lessens. Follow up appointments: 1. You will have follow-up appointments at [facility] as indicated in the ???Future Appointments and Orders?? section of your discharge summary. If X-rays or CT scans have been ordered for you prior to this appointment you will need to report to the Radiology department, desk 3T, 1 hour prior to your clinic appointment time. 2. If you do not have a scheduled follow-up appointment listed at the time of discharge, you will be notified of your scheduled appointment on the next business day. Please call [phone] if you do not hear from us by that time, as your timely follow-up is very important to us. Your care was managed by the Trauma and Acute Care Surgery Team at [facility]. If you have any questions or concerns, please feel free to contact us. Provider Contact Information: General Surgery: [facility] (after business hours): Primary Care Physician: Nya Hernandez APRN General Instructions None Future Appointments and Orders Future Appointments and Orders Future Appointments Provider Department Dept Phone 08/20/2022 10:00 AM Crystal Coker APRN General Surgery at [facility] Arrive at: [employer] [phone] 09/07/2022 8:40 AM Curt Feliz MD Otolaryngology at [facility] Arrive at: [employer] [phone] Signed: Ricky Partida MD General Surgery [facility] pager [phone] Primary Hilaria Physician: Nya Hernandez APRN [address] / [facility] [id number] documented in this encounter Discharge Instructions * Patient Instructions* Ricky Partida MD - 07/27/2022 9:49 AM EDT Discharge Instructions You were were admitted and treated for the following diagnosis: Acute cholecystitis CALL YOUR PHYSICIAN IF: You have a fever greater than 101F You have diarrhea or vomiting for >24 hours, or stop having bowel movements and passing flatus You have worsening pain, not controlled with your pain medication. You develop redness, swelling, or new drainage from your wounds Follow up: Future Appointments Date Time Provider Department Center 09/07/2022 8:40 AM Curt Feliz MD [facility] Pain: - You may continue to take tylenol and ibuprofen for pain. Consider taking 650 mg of tylenol every six hours and 400 mg of ibuprofen every 6 hours. You can alternate between the two medications so that you take something every 3 hours. Please decrease the use of these medications as your pain improves. Driving Restrictions: - No driving if you are too sore to enter or exit your vehicle comfortably, or if you are too sore to easily check your blind spot. No driving while using prescription pain medications Activities: - Discuss return to work or school with your provide at your follow up appointment in the trauma clinic. - Increase your activity slowly. If it hurts don't do it, but try again the following day. - You may tire easily, so frequent naps may be necessary.. - Talk with your doctor about when you can return to work or school. - You may take a shower but have someone nearby in case you need help. Diet: Eat a well-balanced diet. Fresh fruits, vegetables and fiber-containing foods are recommended. Thiswill assist in wound healing. Recommendations: - Take it easy for two weeks. Remember, If it hurts, don't do it. - Take several slow, short walks each day for the first two weeks, and gradually increase your distance. We recommend at least 4 times a day. Wound Care: - You can shower per usual routine - Do not submerge wounds under water (avoid spas, pools and bathtubs) until fully healed. - Do not use creams, oils, or ointments on the wound. - See follow-up appointments for removal of sutures/tamra. Comfort: - Some soreness can be expected. - Take your pain medication as needed and prescribed. - Taper use of pain medication as pain lessens. Follow up appointments: 1. You will have follow-up appointments at [facility] as indicated in the ???Future Appointments and Orders?? section of your discharge summary. If X-rays or CT scans have been ordered for you prior to this appointment you will need to report to the Radiology department, desk 3T, 1 hour prior to your clinic appointment time. 2. If you do not have a scheduled follow-up appointment listed at the time of discharge, you will be notified of your scheduled appointment on the next business day. Please call [phone] if you do not hear from us by that time, as your timely follow-up is very important to us. Your care was managed by the Trauma and Acute Care Surgery Team at [facility]. If you have any questions or concerns, please feel free to contact us. Provider Contact Information: General Surgery: [facility] (after business hours): Primary Care Physician: Nya Hernandez APRN * Attachments The following attachments cannot be sent through Care Everywhere. * Acute Cholecystitis: General Info (Brazilian) * Gallstones (Brazilian) * Gallbladder Disease: Low-Fat Diet (Brazilian) documented in this encounter Medications at Time of Discharge Medication Sig Dispensed Refills Start Date End Date methocarbamoL (Robaxin) 500 mg tabletIndications:Muscl e spasm Take 1 tablet by mouth 4 times daily as needed. 20 tablet 06/29/2022 polyethylene glycoL (Miralax) 17 gram/dose Powder Take 17 g by mouth daily. 06/05/2022 docusate sodium (Colace) 100 mg capsule Take 1 capsule by mouth 2 times daily as needed for Constipation. 06/05/2022 polyethylene glycoL (Miralax) 17 gram oral powder packet Take 17 g by mouth daily. 14 each 06/06/2022 Trelegy Ellipta 100-62.5-25 mcg Inhale 1 puff into the lungs daily. 12/07/2021 atorvastatin (Lipitor) 80 mg Tablet Take 1 tablet by mouth every evening. 90 tablet 3 06/03/2021 clopidogreL (Plavix) 75 mg Tablet Take 1 tablet by mouth daily. 90 tablet 3 06/04/2021 pantoprazole EC (Protonix) 40 mg Tablet, Delayed Release (E.C.) Take 1 tablet by mouth daily. Take one tablet by mouth daily for one month. Then you can stop. 30 tablet 06/04/2021 gabapentin (Neurontin) 300 mg Capsule Take 1 capsule by mouth Daily at Noon. 90 capsule 12 06/03/2021 losartan (Cozaar) 50 mg Tablet Take 50 mg by mouth daily. Eliquis 5 mg Tablet TAKE ONE TABLET BY MOUTH TWICE A DAY 11/09/2020 furosemide (Lasix) 20 mg Tablet daily. 11/08/2020 albuteroL 90 mcg/actuation HFA Aerosol Inhaler INHALE TWO PUFFS BY MOUTH EVERY 4 TO 6 HOURS NEEDED FOR COUGH 04/08/2020 traZODone (Desyrel) 50 mg Tablet Take 0.5 tablets by mouth nightly. 90 tablet 3 06/27/2020 levothyroxine (Synthroid) 50 mcg Tablet Take 1 tablet by mouth every morning. 90 tablet 3 06/28/2020 multivitamin with minerals (THERA-M) 9 mg iron-400 mcg Tablet Take 1 tablet by mouth daily. 06/28/2020 amoxicillin-clavulanate (Augmentin) 875-125 mg tablet Take 1 tablet by mouth 2 times daily for 5 days. 10 tablet 07/27/2022 08/01/2022 documented as of this encounter Progress Notes * Guillermo Maki Jr. RN - 07/27/2022 12:47 PM EDT Patient discharged to home w/o services. Discharge paper work reviewed. IVs removed. All belongingsreturned. * Ricky Partida MD - 07/27/2022 9:52 AM EDT ID/MECHANISM OF INJURY: Eliza Moya is a 57 y.o. female S/pERCP for acute cholecystitis OR CASE INFORMATION: 07/25/2022 Procedure(s): ERCP W/REMOVAL CALCULI/DEBRIS FROM BILARY/PANCREATIC DUCT(S) (WRVU 6.63) ERCP W/SPHINCTEROTOMY/PAPILLOTOMY (WRVU 6.5) FOLLOW-UP NEEDED: Does pt need to f-u with surgeon or CHEMICAL ENGINEER (please indicate reason if attending provider): CHEMICAL ENGINEER How soon should ACS f/u be? 3-4 weeks Does patient need imaging prior to ACS f/u? No Are CT/MRI Safety questions complete (if needed)? No Does patient have tamra/sutures? When should they be removed? What service is responsible? No Does patient need labs with TACS f/u? No Follow-up with other services? No Advise of Service and needs. Imaging orders entered: No Radiology Safety questions done for MRI/CT? No New or current ostomy? Ostomy nurse shared visit No Mobility concerns: Fully ambulatory Wound vac (requires 60min clinic visit) No On vent? If Yes - Needs to have someone from facility and supplies. No On Dialysis: No (SCHEDULE?) INCIDENTAL FINDINGS Incidental Findings (yes/no): No OPIOID CONSENT/NARCOTIC AGREEMENTS Current Month Narcotic Consent? No Isolation No Isolation D/c to: Home If Rehab - Rehab Name: PCP Name: SERGIO Muñoz MD 07/27/2022 * Danna Kene MD - 07/27/2022 6:32 AM EDT GASTROENTEROLOGY & HEPATOLOGY INPATIENT PROGRESS NOTE ID: 57yo M w/ PMH of COPD, PAD s/p right AKA, HTN, CAD s/p PCI (05/2021), Afib, perforated duodenalulcer in 2020 s/p multiple ex-laps and Donavan-en-Y duodenojejunostomy, and s/p??recent extensive??repair of large??incisional hernia 05/2022??who presented to [facility] w/ c/f acute cholecystitis. We are cons ulted given c/f acute cholangitis. Now s/p ERCP on 07/25 with 5 mm filling defect in CBD, s/p sphincterotomy and successful sweeping of stone. Interval History: -- Afebrile and HD stable -- Labs today with WBC 8.1, Hgb 9.2, TB 2.2 --> 1.3 --> 0.6, ALP 225 --> 248, AST 66 --> 51, ALT 132 --> 111 -- Tolerating regular diet -- Overall feeling well, denies any RUQ pain at this time Active Hospital Problem List Patient Active Problem List Diagnosis Code ??? Perforated viscus R19.8 ??? NSTEMI (non-ST elevated myocardial infarction) I21.4 ??? CAD (coronary artery disease) I25.10 ??? COPD (chronic obstructive pulmonary disease) J44.9 ??? HTN (hypertension) I10 ??? Hypothyroid E03.9 ??? PAD (peripheral artery disease) I73.9 ??? Ventral hernia K43.9 ??? Acute cholecystitis K81.0 Scheduled Meds: ??? magnesium sulfate 2 g Intravenous Once ??? diclofenac Topical (Top) 4 Times Daily ??? lidocaine 3 patch Transdermal Q24H ??? atorvastatin 80 mg Oral QPM ??? levothyroxine 50 mcg Oral QAM ??? multivitamin with minerals 1 tablet Oral Daily ??? pantoprazole EC 40 mg Oral Daily ??? polyethylene glycoL 17 g Oral Daily ??? nqenhbgiyqt-mlcmmawfcelj-jgtdrqleib 1 puff Inhalation Daily ??? sodium chloride 0.9 % (flush) 5 mL Intravenous BID ??? senna-docusate 2 tablet Oral BID ??? heparin (porcine) 5,000 Units Subcutaneous Q8H LEMUEL ??? piperacillin-tazobactam 3.375 g Intravenous Q8H ??? traZODone 50 mg Oral Nightly ??? acetaminophen 975 mg Oral Q6H LEMUEL Continuous Infusions: PRN Meds:.oxyCODONE, albuteroL, sodium chloride 0.9 % (flush), lidocaine Physical Examination Vitals: 07/26/22 1151 07/26/22 1530 07/26/22 1914 07/27/22 0403 BP: 120/69 129/64 125/58 140/56 BP Location (NBP): Right arm Right arm Right arm Right arm Patient Position: Sitting Lying Lying Lying Resp: 18 16 Temp: 36.8 ??C (98.2 ??F) 36.9 ??C (98.4 ??F) 37 ??C (98.6 ??F) 36.3 ??C (97.3 ??F) TempSrc: Oral Oral Oral Oral SpO2: 92% 90% 94% 95% PHYSICAL EXAM GENERAL: No acute distress, alert and oriented HEENT: AT/NC, sclerae anicteric, moist mucous membranes ABDOMEN: Soft, non-tender, non-distended EXT: Warm, no edema SKIN: No jaundice Pertinent Recent labs CBC Lab Results Component Value Date WBC 8.1 07/27/2022 Hemoglobin 9.2 (L) 07/27/2022 Hematocrit 30.3 (L) 07/27/2022 Platelets 409 (H) 07/27/2022 Lab Results Component Value Date Sodium 141 07/27/2022 Potassium 4.0 07/27/2022 Chloride 108 (H) 07/27/2022 CO2 23 07/27/2022 BUN 19 (H) 07/27/2022 Creatinine 0.66 (L) 07/27/2022 Glucose Lvl 116 07/27/2022 LFT's Lab Results Component Value Date Alk Phos 248 (H) 07/27/2022 AST 51 (H) 07/27/2022 Albumin 3.0 (L) 07/27/2022 Total Bilirubin 0.6 07/27/2022 ALT 111 (H) 07/27/2022 Total Protein 5.5 (L) 07/27/2022 Pertinent Endoscopic Procedures/Reports: Reviewed in eDH Pertinent Recent Imaging: Reviewed in eDH Impression: 57yo M w/ PMH of COPD, PAD s/p right AKA, HTN, CAD s/p PCI (05/2021), Afib, perforated duodenal ulcer in 2020 s/p multiple ex-laps and Donavan-en-Y duodenojejunostomy, and s/p??recent extensive??repair of large??incisional hernia 05/2022??who presented to [facility] w/ c/f acute cholecystitis. We are consulte d given c/f acute cholangitis. Now s/p ERCP on 07/25 with 5 mm filling defect in CBD, s/p sphincterotomy and successful sweeping of stone. Now feeling well without any acute concerns. Recommendations: - Trend LFTs - Continue abx - Pain control per primary team - Continue regular diet - Cholecystectomy timing to be determined per surgery team ?? This case was discussed with Dr. Moyer. Recommendations were discussed with primary team. Danna Keen M.D. Fellow in Gastroenterology and Hepatology Pager #[phone] 07/27/2022 Associated attestation - Pa Moyer MD - 07/27/2022 11:29 AM EDT ATTENDING ATTESTATION: I have seen, examined, and discussed the patient with the GI fellow Dr. Keen and I agree with thefindings, assessment, and plan as written. Pa Moyer MD, [facility] Attending Staff Section of Gastroenterology and Hepatology Pager [phone] * Leyla Soto RN - 07/27/2022 5:20 AM EDT OUTCOME EVALUATION NOTE: OUTCOME SUMMARY: Pt A&Ox4 pleasant and cooperative with care. Complaints of pain to RUQ radiating to R shoulder/back area- pain well controlled overnight. Heat packs, scheduled and PRN medications administered with good effect. No complaints of SOB/TURNER; IS teaching performed. Pt on 2 LNC while sleeping (pt states this is her baseline); tolerating well. Tolerating regular diet; no complaints of N/V. External ca theter in place; x1 small BM overnight. R AKA- stand and pivot to wheelchair. Masimo monitoring in place. VSSS. Fall safety precautions maintained. Bed alarm on for safety. Call linares within reach. Hourly rounding performed will CTM for changes. PLAN MOVING FORWARD: Regular diet I&O monitoring Pain control Mobilize D/c planning INDIVIDUALIZED FALL PREVENTION INTERVENTIONS: Patient-specific fall risk factors per assessment: [current deficits]: Hospital Environment, Pain, Impaired Mobility, IVabx Assistance [level of assistance required for transfers and ambulation]: X1 to wheelchair Supervision [direct monitoring required during toileting and ADLs]: Eyes on hands on per unit protocol Surveillance [continuous indirect monitoring]: Eleuterio, Patient Safety Rounding * Meme Torres MD - 07/26/2022 7:52 PM EDT Acute Care Surgery Daily Progress Note ID: Eliza Moya is a 57 y.o. female with PMHh/o COPD, PAD s/p right AKA, hypertension, CAD s/p PCI (05/2021), a fib, perforated duodenal ulcer in 2020 s/p multiple ex-laps and Donavan-en-Y duodenojejunostomy, and s/p recent extensive repair of large incisional hernia 05/2022 who presents to [facility] asa transfer for acute cholecystitis. Procedures: Procedure(s): ERCP W/REMOVAL CALCULI/DEBRIS FROM BILARY/PANCREATIC DUCT(S) (WRVU 6.63) ERCP W/SPHINCTEROTOMY/PAPILLOTOMY (WRVU 6.5) Secondary Issues: Past Medical History: Diagnosis Date ??? CAD (coronary artery disease) ??? COPD (chronic obstructive pulmonary disease) ??? HTN (hypertension) ??? Hypothyroid ??? PAD (peripheral artery disease) 24hr events: ?? ERCP yesterday, sphincterotomy performed, no stenting necessary, one large stone removed from CBD and purulent discharge from duct after stone removal ?? NAEON ?? BM x1 O: Last value Range last 24hrs Temperature Temp: 37 ??C (98.6 ??F) Temp: [36.5 ??C (97.7 ??F)-37 ??C (98.6 ??F)] Heart Rate Heart Rate: -- Blood Pressure BP: 125/58 BP: (102-129)/(52-69) Respiratory Rate Resp: 18 Resp: [17-22] SpO2 SpO2: 94 % SpO2: [89 %-98 %] 07/25 0701 - 07/26 0700 In: 600 [P.O.:200; I.V.:400] Out: 1450 [Urine:1450] Physical Exam: GEN: Resting comfortably in bed, pleasant, conversant, NAD. HEENT: Normocephalic, atraumatic, anicteric sclerae CHEST: No increased work of breathing CV: Regular rate. Well perfused. ABD: Soft, mildly tender in RUQ. Large midline scar well healed EXTR: Moving spontaneously. Trace edema. SKIN: Warm and dry. NEURO: Alert and follows commands. Labs: Recent Labs 07/26/2222807/25/2239907/24/222039 WBC 8.7 8.1 14.7* HGB 9.9* 11.1* 11.9 HCT 32.4* 35.2* 38.0 PLATELET 380* 418* 468* PT -- -- 17.8* INR -- -- 1.6 PTT -- -- 34 Recent Labs 07/26/22 0939 07/26/2222807/25/22 0400 07/24/222039 NA -- 141 141 140 K 4.2 3.5 3.9 3.8 CL -- 107 106 105 CO2 -- 27 28 27 BUN -- 13 11 12 CREATININE -- 0.67* 0.71 0.71 GLUCOSE -- 111 112 133 CALCIUM -- 7.8* 8.4* 8.5 MAGNESIUM -- 0.90 0.80 -- PHOS -- 3.0 3.5 -- Microbiology: None at this time New imaging: CT A/P 07/24/22 1. Obstructing central choledocholithiasis. 2. Acute cholecystitis. 3. Unexpected finding: Decreased size of fluid collection within fistulous interloop sigmoid band/scar extending to the vaginal fornix and posterior bladder wall ASSESSMENT: Eliza Moya is a 57 y.o. female with multiple abdominal surgery due to a perforatedduodenal ulcer and most recently an extensive mesh repair of a large incisional hernia in May of this year who is admitted for management of acute cholecystitis. Patient still complaining of abdominal pain after ERCP, but overall feels well. Total bilirubin is down trending nicely since yesterday. Will advance her diet to regular diet from clears. Will continue abx. PLAN # NEURO: Tylenol 975mg Q6H, Oxycodone 5mg Q4H PRN. Trazodone 50mg QHS # CV: Atorvastatin # PULM: Trelegy inhaler # GI: Regular diet, CLD post-ERCP likely. MIralax, Pericolace. Home protonix 40mg daily # FEN: LR 100cc/hr # : I/Os # ENDO: Synthroid 50mcg AM # ID: Zosyn (07/24 -) # PPX: PPI IS SCDs, SQH # LINES: PIV # DISPO: Inpatient status, likely discharge to home in 2-3 days, Attempt Cardiopulmonary Resuscitation - Inpatient Ricky Partida MD, PGY1 Acute Care Surgery Team pager [phone] Attending Addendum I have seen and examined the patient, I have reviewed the vitals, labs and pertinent imaging. I have discussed the documentation above and agree, with the following comments: Ms. Moya says she feels better today, at the time of my visit she had no pain. Appreciate GI involvement and ERCP. Will continue antibiotics. She reports feeling hungry so will see whether she is able to tolerate a diet. Meme Torres MD [phone] * Guillermo Maki Jr., RN - 07/26/2022 5:01 PM EDT OUTCOME EVALUATION NOTE: OUTCOME SUMMARY: Patient A&Ox4, VSS on RA. Pain controlled with scheduled medications, see MAR. Mild complaints of RUQ radiating to R shoulder/back able. Patient complaints of R AKA, team aware, Voltaren and lidocaine patches ordered. Patient utilizing IS and Nebulizers. Diet advanced to regular, patient tolerating. External cath in use. Up to wheelchair with stand pivot. Showered. Fall safety precautions main tained. Bed alarmed on for safety. Call linares within reach. PLAN MOVING FORWARD: Regular diet I&O monitoring Pain control Mobilize D/c planning ?? INDIVIDUALIZED FALL PREVENTION INTERVENTIONS: ?? Patient-specific fall risk factors per assessment: [current deficits]: Hospital Environment, Pain, Impaired Mobility, IVabx ?? Assistance [level of assistance required for transfers and ambulation]: X1 to wheelchair ?? Supervision [direct monitoring required during toileting and ADLs]: Eyes on hands on per unit protocol ?? Surveillance [continuous indirect monitoring]: Eleuterio, Patient Safety Rounding ?? * Sunny Ventura MD - 07/26/2022 6:41 AM EDT Images from the original note were not included. DIVISION OF GASTROENTEROLOGY & HEPATOLOGY CONSULT PROGRESS NOTE REQUESTING PROVIDER: Roberta Vega MD NAME: Eliza Moya : 1965 Reason for consult: C/f acute cholangitis HPI: 57yo M w/ PMH of COPD, PAD s/p right AKA, HTN, CAD s/p PCI (05/2021), Afib, perforated duodenal ulcer in 2020 s/p multiple ex-laps and Donavan-en-Y duodenojejunostomy, and s/p??recent extensive??repair of large??incisional hernia 05/2022??who presented to [facility] w/ c/f acute cholecystitis. We are consulte d given c/f acute cholangitis. INTERVAL: - S/p ERCP w/sphincterotomy and sweeping of stone; contrast filled GB and no stones visualized in GB - Afebrile, HDS - WBC 8.7, LFTs downtrending: - Bili 2.2 --> 1.3 - Alk phos stable at 225 - AST 119 --> 66 - ALT 158 --> 132 - Still having some RUQ pain that wraps around to back, tolerating liquids and about to order breakfast ERCP 07/25: Impression: ?- Choledocholithiasis causing acute ?cholangitis without cholecystitis Recommendation: ?- Return to floor ?- Continue antibiotics ?- Advance diet as tolerated ROS: 10-system ROS negative other than that noted above PAST MEDICAL & SURGICAL HX: Past Medical History: Diagnosis Date ??? CAD (coronary artery disease) ??? COPD (chronic obstructive pulmonary disease) ??? HTN (hypertension) ??? Hypothyroid ??? PAD (peripheral artery disease) Past Surgical History: Procedure Laterality Date ??? CT PERITONEAL DRAINAGE 05/27/2020 CT Guided Drain Peritoneal 05/27/2020 [facility] RAD CAT SCAN ??? CT PERITONEAL DRAINAGE 05/27/2020 CT Guided Drain Peritoneal 05/27/2020 [facility] RAD CAT SCAN ??? CT PERITONEAL DRAINAGE 05/27/2020 CT Guided Drain Peritoneal 05/27/2020 [facility] RAD CAT SCAN ??? IR CHEST TUBE PLACEMENT BILATERAL 05/15/2020 IR Chest Tube Placement Bilateral 05/15/2020 Ricky Hollis MD [facility] INTERVENTIONL RAD ??? PRO AMPUTATE THIGH, OPEN CIRCULAR Right 05/11/2020 AMPUTATION, ABOVE-KNEE, OPEN, GUILLOTINE (WRVU 10.98) performed by Christine Montgomery MD at [facility] MAIN OR ??? PRO AMPUTATE THIGH, SECONDRY CLOSUR Right 06/13/2020 AMPUTATION, ABOVE-KNEE, SECONDARY CLOSURE OR SCAR REVISION (WRVU 7.29) performed by Christine Montgomery MD at [facility] OR ??? PRO CHOLECYSTOENTER+DONAVAN-EN-Y+GASTROENT N/A 05/12/2020 @DONAVAN-EN-Y WITH GASTROENTEROSTOMY (WRVU 24.21) performed by Meme Torres MD at [facility] OR ??? PRO EXPLORATION OF ABDOMEN N/A 05/11/2020 @EXPLORATORY LAPAROTOMY, WITH/WITHOUT BIOPSY(S) (WRVU 12.54) performed by Meme Torres MD at [facility] OR ??? PRO GASTROJEJUNOSTOMY N/A 05/12/2020 @GASTROJEJUNOSTOMY (WRVU 22.53) performed by Meme Torres MD at [facility] OR ??? PRO MUSCLE-SKIN FLAP, TRUNK N/A 06/01/2022 FLAP, MYOCUTANEOUS OR FASCIOCUTANEOUS, TRUNK (WRVU 23) performed by Whit Nance MD at [facility] OR ??? PRO REOPEN RECENT ABD EXPLORATORY N/A 05/12/2020 @EXPLORATORY LAPAROTOMY, REOPENING OF RECENT (WRVU 17.63) performed by Meme Torres MD at [facility] OR ??? PRO REOPEN RECENT ABD EXPLORATORY Midline 05/16/2020 @EXPLORATORY LAPAROTOMY, REOPENING OF RECENT (WRVU 17.63) performed by Roberta Vega MD at [facility] OR ??? PRO REOPEN RECENT ABD EXPLORATORY Midline 05/18/2020 @EXPLORATORY LAPAROTOMY, REOPENING OF RECENT (WRVU 17.63) performed by Marco Silver MD at [facility] OR ? ? PRO REPAIR AA HERNIA INITIAL > 10 CM REDUCIBLE N/A 06/01/2022 REPAIR ANT. ABDOMINAL HERNIA(S) (IE, EPIGASTRIC, INCISIONAL, VENTRAL, UMBILICAL, SPIGELIAN), INITIAL, W-WO MESH; GREATER THAN 10 CM, REDUCIBLE (WRVU 13.94) performed by Whit Nance MD at [facility] OR ??? PRO REPAIR PERF DUOD/JIMENA ULC-WND/INJ N/A 05/11/2020 GASTRORRHAPHY, SUTURE OF PERFORATED, ULCER, WOUND, INJURY (WRVU 22.83) performed by Meme Torres MD at [facility] OR ??? PRO RESECT SMALL INTEST, SINGL RESEC/ANAS N/A 05/12/2020 @BOWEL RESECTION, SMALL INTESTINE SINGLE ANASTOMOSIS (WRVU 20.82) performed by Meme Torres MD at [facility] MAIN OR ??? PRO SUTURE ABD WALL-DEHIS/EVISCER Midline 05/20/2020 @SUTURE, SECONDARY, OF ABD WALL FOR EVISCERATION OR DEHISCENCE (WRVU 12.41) performed by Phuong Akbar MD at [facility] MAIN OR ? ? PRO UNLISTED PX ABD PRTM&OMENTUM N/A 05/20/2020 SUTURE OMENTUM (WRVU 11.1) performed by Phuong Akbar MD at [facility] MAIN OR ??? PRO UNLISTED PX ABDOMEN MUSCULOSKELETAL SYSTEM Midline 05/16/2020 WOUND CLOSURE, ABDOMINAL, PARTIAL W/ WOUND VAC (WRVU 6.39) performed by Roberta Vega MD at [facility] MAIN OR ??? PRO UPPER GI ENDOSCOPY, BIOPSY N/A 11/25/2020 EGD WITH BIOPSY (WRVU 2.49) performed by Kervin Rubio MD at [facility] ENDOSCOPY SOCIAL HX: Social History Socioeconomic History ??? Marital status: Spouse name: Not on file ??? Number of children: Not on file ??? Years of education: Not on file ??? Highest education level: Not on file Occupational History ??? Not on file Tobacco Use ??? Smoking status: Former Packs/day: 1.00 Years: 40.00 Pack years: 40.00 Types: Cigarettes Quit date: 10/07/2021 Years since quittin.8 ??? Smokeless tobacco: Never ??? Tobacco comments: never vape Vaping Use ??? Vaping Use: Never used Substance and Sexual Activity ??? Alcohol use: Not Currently Comment: none since 06/2020 ??? Drug use: Never ??? Sexual activity: Yes Comment: deferred Other Topics Concern ??? Not on file Social History Narrative ??? Not on file Social Determinants of Health Financial Resource Strain: Not on file Food Insecurity: Not on file Transportation Needs: Not on file Physical Activity: Not on file Housing Stability: Not on file FAMILY HX: No family history on file. MEDICATIONS Medication list personally reviewed Home Meds: Medications Prior to Admission Medication Sig Dispense Refill Last Dose ??? methocarbamoL (Robaxin) 500 mg tablet Take 1 tablet by mouth 4 times daily as needed. 20 tablet0 ??? polyethylene glycoL (Miralax) 17 gram/dose Powder Take 17 g by mouth daily. ??? docusate sodium (Colace) 100 mg capsule Take 1 capsule by mouth 2 times daily as needed for Constipation. ??? polyethylene glycoL (Miralax) 17 gram oral powder packet Take 17 g by mouth daily. 14 each 0 ??? Trelegy Ellipta 100-62.5-25 mcg Inhale 1 puff into the lungs daily. ??? atorvastatin (Lipitor) 80 mg Tablet Take 1 tablet by mouth every evening. 90 tablet 3 ??? clopidogreL (Plavix) 75 mg Tablet Take 1 tablet by mouth daily. 90 tablet 3 ??? nitroGLYcerin (Nitrostat) 0.4 mg Tablet, Sublingual Place 1 tablet under the tongue every 5 minutes as needed for Chest pain. (Patient not taking: Reported on 12/16/2021) 25 tablet PRN ??? pantoprazole EC (Protonix) 40 mg Tablet, Delayed Release (E.C.) Take 1 tablet by mouth daily. Take one tablet by mouth daily for one month. Then you can stop. 30 tablet 0 ??? gabapentin (Neurontin) 300 mg Capsule Take 1 capsule by mouth Daily at Noon. 90 capsule 12 ??? losartan (Cozaar) 50 mg Tablet Take 50 mg by mouth daily. ??? Eliquis 5 mg Tablet TAKE ONE TABLET BY MOUTH TWICE A DAY ??? furosemide (Lasix) 20 mg Tablet daily. ??? albuteroL 90 mcg/actuation HFA Aerosol Inhaler INHALE TWO PUFFS BY MOUTH EVERY 4 TO 6 HOURS NEEDED FOR COUGH ??? traZODone (Desyrel) 50 mg Tablet Take 0.5 tablets by mouth nightly. (Patient taking differently: Take 50 mg by mouth nightly.) 90 tablet 3 ??? levothyroxine (Synthroid) 50 mcg Tablet Take 1 tablet by mouth every morning. 90 tablet 3 ??? multivitamin with minerals (THERA-M) 9 mg iron-400 mcg Tablet Take 1 tablet by mouth daily. Current Meds: Scheduled: ??? atorvastatin 80 mg Oral QPM ??? levothyroxine 50 mcg Oral QAM ??? multivitamin with minerals 1 tablet Oral Daily ??? pantoprazole EC 40 mg Oral Daily ??? polyethylene glycoL 17 g Oral Daily ??? obmeetxitrk-voicjigxqujz-depkkrfsan 1 puff Inhalation Daily ??? sodium chloride 0.9 % (flush) 5 mL Intravenous BID ??? senna-docusate 2 tablet Oral BID ??? heparin (porcine) 5,000 Units Subcutaneous Q8H LEMUEL ??? piperacillin-tazobactam 3.375 g Intravenous Q8H ??? traZODone 50 mg Oral Nightly ??? acetaminophen 975 mg Oral Q6H LEMUEL Drips: PRN: oxyCODONE, albuteroL, sodium chloride 0.9 % (flush), lidocaine Allergies: Allergies Allergen Reactions ??? Doxycycline Rash RADHA- unknown ??? Sulfa (Sulfonamide Antibiotics) Rash RADHA- unknown ??? Vicodin [Hydrocodone-Acetaminophen] Other (See Comments) RADHA- unknown OBJECTIVE Vitals: T Temp: [36.3 ??C (97.3 ??F)-36.9 ??C (98.4 ??F)] HR Heart Rate: -- BP BP: (102-134)/(52-66) RR Resp: [17-22] SpO2 SpO2: [93 %-98 %] IO 07/25 0701 - 07/26 0700 In: 600 [P.O.:200; I.V.:400] Out: 1450 [Urine:1450] Wt Last Admit Physical Exam: CONST: Awake, alert, no acute distress HEENT: moist mucous membranes, no oral thrush GI: abdomen soft, non-tender, non-distended, tympanic to percussion MSK: legs warm, palpable pulses b/l, no significant edema SKIN: No jaundice, rash, or bruising NEURO: Grossly intact, moves all extremities PSYCH: Pleasant, appropriate affect Labs: Labs personally reviewed in eDH CBC: Recent Labs 07/26/22 0229 07/25/22 0400 07/24/222039 WBC 8.7 8.1 14.7* HGB 9.9* 11.1* 11.9 PLATELET 380* 418* 468* MCV 85.7 84.6 83.2 RDWCV 14.4* 14.5* 14.6* COAG: Recent Labs 07/24/222039 PTT 34 INR 1.6 PT 17.8* CHEM: Recent Labs 07/26/2222807/25/22 0400 07/24/222039 CREATININE 0.67* 0.71 0.71 BUN 13 11 12 NA 141 141 140 K 3.5 3.9 3.8 CL 107 106 105 CO2 27 28 27 MAGNESIUM 0.90 0.80 -- CALCIUM 7.8* 8.4* 8.5 HEPATIC: Recent Labs 07/26/2222807/25/22 0400 07/24/222039 BILITOT 1.3 2.2* 1.9* ALKPHOS 225* 226* 255* AST 66* 119* 160* ALT 132* 158* 180* ALBUMIN 3.1* 3.2 3.8 LIPASE -- -- 21 INFLAMM: No results for input(s): CRP in the last 168 hours. IMAGING: Reports and images personally reviewed in eDH. Images independently interpreted. XR ERCP Final Result Request For 2nd Read CT Abdomen & Pelvis Final Result Abnormal 1. Obstructing central choledocholithiasis. 2. Acute cholecystitis. 3. Unexpected finding: Decreased size of fluid collection within fistulous interloop sigmoid band/scar extending to the vaginal fornix and posterior bladder wall. Thank you for letting us participate in the care of this patient. If you are a health care provider and have any questions regarding this report, please contact the number below. For patients who have questions please contact the health child care center assistant director that requested your imaging first. Electronically signed by: Rukhsana Vega MD, [facility] ([phone]), at 07/25/2022 6:38 AM ENDOSCOPY: Reports and images personally reviewed in eDH EGD 11/2020: Impression: ?- Normal esophagus. ?- Z-line regular, 40 cm from the ?incisors. ?- Normal stomach. Biopsied. ?- Normal examined morongo duodenum. ?S/p duodenojejunostomy, normal ?anastomosis, no inflammation ?Normaql jejunal limb and blind end ?jejunal pouch ?Ulcer has healed Recommendation: ?- Await pathology results. ?Consider maintenance with PPI if H ?Pylori is negative ASSESSMENT & PLAN: 57yo M w/ PMH of COPD, PAD s/p right AKA, HTN, CAD s/p PCI (05/2021), Afib, perforated duodenal ulcer in 2020 s/p multiple ex-laps and Donavan-en-Y duodenojejunostomy, and s/p??recent extensive??repair of large??incisional hernia 05/2022??who presented to [facility] w/ c/f acute cholecystitis. We are consulte d given c/f acute cholangitis. She is now s/p ERCP w/sphincterotomy and sweeping of stone out of duct, LFTs improving and on abx. She remains afebrile and HDS. Agree w/ongoing abx and advancing diet as tolerated. Suspect still having pain in the setting of cholangitis / procedure, and would anticipate that would improve over thenext day or so. Will see how she does with advancing diet and follow her pain. Recommendations: - Trend LFTs - Advance diet as tolerated - Continue abx - Pain control per primary Patient seen with Dr. Lorenzo Hernandez MD PGY-4, Gastroenterology ADDENDUM: I have interviewed and examined Ms. Moya this morning and I agree with the plan as outlined in the note from Dr. Hernandez. * Leyla Soto RN - 07/26/2022 5:26 AM EDT OUTCOME EVALUATION NOTE: OUTCOME SUMMARY: Pt A&Ox4 pleasant and cooperative with care. Complaints of pain to RUQ radiating to R shoulder/back area. Heat packs, scheduled and PRN medications administered with good effect. R/t pain patientstates it is difficult to take a deep breath x1 nebulizer treatment given with good effect. IS teaching performed. Pt on 2 LNC while sleeping (pt states this is her baseline); tolerating well. Tolerating clear liquid diet; no complaints of N/V. External catheter in place; x1 small BM overnight. R AKA- stand and pivot to wheelchair. Masimo monitoring in place. VSSS. Fall safety precautions maintained. Bed alarm on for safety. Call linares within reach. Hourly rounding performed will CTM for changes. PLAN MOVING FORWARD: Clear liquid diet I&O monitoring Pain control Mobilize D/c planning INDIVIDUALIZED FALL PREVENTION INTERVENTIONS: Patient-specific fall risk factors per assessment: [current deficits]: Hospital Environment, Pain, Impaired Mobility, IVabx Assistance [level of assistance required for transfers and ambulation]: X1 to wheelchair Supervision [direct monitoring required during toileting and ADLs]: Eyes on hands on per unit protocol Surveillance [continuous indirect monitoring]: Eleuterio, Patient Safety Rounding * Phuong Bourne RN - 07/25/2022 6:06 PM EDT OUTCOME EVALUATION NOTE: OUTCOME SUMMARY: A&Ox4, VSS on RA while awake. Patient placed on 2L NC when asleep. Per patient, she wears 2L NCat night. ERCP done this morning and patient advanced to clear liquid diet. Voiding appropriately with external catheter. Patient reports improved abdominal pain after ECRP. Will continue to monitor and help patient reach d/c goals. PLAN MOVING FORWARD: Pain control CLD D/C planning INDIVIDUALIZED FALL PREVENTION: Patient is currently a high risk to Fall. Patient educated on bed/chair alarm, demonstrates proper use of call linares and verbalizes understanding of fall preventions implemented. Patient-specific fall risk factors per assessment: [current deficits]: Pain, Medications, Hospital Environment, Impaired Mobility, Recent Surgery Assistance [level of assistance required for transfers and ambulation]: X1 to wheelchair Supervision [direct monitoring required during toileting and ADLs]: Eyes on with ADL's Surveillance [continuous indirect monitoring]: Masimo, Purposeful Rounding, Nurse Knowledge Exchange, Bed Alarm Set * Amanda Ann RN - 07/25/2022 11:28 AM EDT Report to phuong on floor patient awake alert taken back to floor. * Meme Torres MD - 07/25/2022 9:03 AM EDT Acute Care Surgery Daily Progress Note ID: Eliza Moya is a 57 y.o. female with PMHh/o COPD, PAD s/p right AKA, hypertension, CAD s/p PCI (05/2021), a fib, perforated duodenal ulcer in 2020 s/p multiple ex-laps and Donavan-en-Y duodenojejunostomy, and s/p recent extensive repair of large incisional hernia 05/2022 who presents to [facility] asa transfer for acute cholecystitis. Procedures: Procedure(s): ERCP (WRVU 5.85) Secondary Issues: Past Medical History: Diagnosis Date ??? CAD (coronary artery disease) ??? COPD (chronic obstructive pulmonary disease) ??? HTN (hypertension) ??? Hypothyroid ??? PAD (peripheral artery disease) 24hr events: ?? Admitted with acute cholecystitis and started on Zosyn ?? Made NPO at midnight for possible endoscopic intervention. ?? Pain initially well controlled but increased during the late AM per nursing O: Last value Range last 24hrs Temperature Temp: 36.3 ??C (97.3 ??F) Temp: [36.3 ??C (97.3 ??F)-36.8 ??C (98.2 ??F)] Heart Rate Heart Rate: -- Blood Pressure BP: 107/61 BP: (106-127)/(58-64) Respiratory Rate Resp: 17 Resp: [16-18] SpO2 SpO2: 96 % SpO2: [92 %-97 %] 07/24 07 - 07/25 0700 In: 360 [P.O.:360] Out: 425 [Urine:425] Physical Exam: GEN: Resting comfortably in bed, pleasant, conversant, NAD. HEENT: Normocephalic, atraumatic, anicteric sclerae CHEST: No increased work of breathing CV: Regular rate. Well perfused. ABD: Soft, mildly tender in RUQ. Large midline scar well healed EXTR: Moving spontaneously. Trace edema. SKIN: Warm and dry. NEURO: Alert and follows commands. Labs: Recent Labs 07/25/2239907/24/222039 WBC 8.1 14.7* HGB 11.1* 11.9 HCT 35.2* 38.0 PLATELET 418* 468* PT -- 17.8* INR -- 1.6 PTT -- 34 Recent Labs 07/25/2239907/24/222039 NA 141 140 K 3.9 3.8 CL 106 105 CO2 28 27 BUN 11 12 CREATININE 0.71 0.71 GLUCOSE 112 133 CALCIUM 8.4* 8.5 MAGNESIUM 0.80 -- PHOS 3.5 -- Microbiology: None at this time New imaging: CT A/P 07/24/22 1. Obstructing central choledocholithiasis. 2. Acute cholecystitis. 3. Unexpected finding: Decreased size of fluid collection within fistulous interloop sigmoid band/scar extending to the vaginal fornix and posterior bladder wall ASSESSMENT: Eliza Moya is a 57 y.o. female with multiple abdominal surgery due to a perforatedduodenal ulcer and most recently an extensive mesh repair of a large incisional hernia in May of this year who is admitted for management of acute cholecystitis. Ms. Moya has had waxing and waning of her abdominal pain on exam and her white count is down trending with the initiation of Zosyn. Given her complex abdomen with multiple surgeries and donavan-en-Y duodenojejunostomy, recent hernia repair and extensive adhesions in her abdomen surgical management would be complex. Elzia understands that and agrees with avoiding surgery if possible. As such, jassi consulted our gastroenterology colleagues for ERCP. Her anatomy is amenable to ERCP. PLAN # NEURO: Tylenol 975mg Q6H, Oxycodone 5mg Q4H PRN. Trazodone 50mg QHS # CV: Atorvastatin # PULM: Trelegy inhaler # GI: NPO diet (Give Meds), CLD post-ERCP likely. MIralax, Pericolace. Home protonix 40mg daily # FEN: LR 100cc/hr # : I/Os # ENDO: Synthroid 50mcg AM # ID: Zosyn (07/24 -) # PPX: PPI IS SCDs, SQH # LINES: PIV # DISPO: Inpatient status, likely discharge to home in 2-3 days, Attempt Cardiopulmonary Resuscitation - Inpatient Danna Alejandro MD, PGY1 Acute Care Surgery Team pager [phone] Attending Addendum I have seen and examined the patient, I have reviewed the vitals, labs and pertinent imaging. I have discussed the documentation above and agree, with the following comments: Ms. Moya continues to have variable pain which is controlled with pain medication. While her WBChas improved, her total bilirubin has risen this morning and her CT does have evidence of choledocholithiasis. Given this, we have consulted GI for ERCP and duct clearance. Continue antibiotics. Meme Torres MD [phone] * Gerri Kat, RN - 07/25/2022 12:54 AM EDT OUTCOME EVALUATION NOTE: OUTCOME SUMMARY: Patient A&Ox4, VSS on 2L NC (baseline at home per patient). Denies nausea/vomiting, CP, SOB. Pain controlled w/ scheduled and PRN medications, see MAR. Patient voiding to purewick. LBM 07/24 AM AMMUNITION SPECIALIST per patient. NPO since midnight. Patient resting in between care. Will continue to monitor. PLAN MOVING FORWARD: Pain control IV Abx Mobilize D/c planning INDIVIDUALIZED FALL PREVENTION INTERVENTIONS: Patient-specific fall risk factors per assessment: [current deficits]: Lines/drains, impaired mobility, pain, medications, hospital environment Assistance [level of assistance required for transfers and ambulation]: Not OOB this shift Supervision [direct monitoring required during toileting and ADLs]: Eyes on Surveillance [continuous indirect monitoring]: Masimo, bed alarm, purposeful rounding Patient-specific fall prevention interventions for sensory deficits provided, if applicable: [X] N/A CPG GOAL OUTCOME EVALUATION: * Gerri Kat RN - 07/24/2022 7:50 PM EDT Patient arrived to floor via stretcher from OSH. Patient A&O x4, lungs clear, heart rate regular. Patient has a L PIV in place. Patient states their pain level is 3/10. Patient denies chest pain,shortness of breath, numbness or tingling. Endorses RUQ discomfort/tenderness. Patient connected toMasimo monitors, paged for orders. Patient oriented to room, call linares, IS. RN will monitor patient. documented in this encounter H&P Notes * Claudette Hernandez MD - 07/25/2022 10:32 AM EDT Gastroenterology and Hepatology Pre-Procedure History and Physical Exam Procedure: ERCP: Indication: c/f acute cholangitis Patient Active Problem List Diagnosis Code ??? Perforated viscus R19.8 ??? NSTEMI (non-ST elevated myocardial infarction) I21.4 ??? CAD (coronary artery disease) I25.10 ??? COPD (chronic obstructive pulmonary disease) J44.9 ??? HTN (hypertension) I10 ??? Hypothyroid E03.9 ??? PAD (peripheral artery disease) I73.9 ??? Ventral hernia K43.9 ??? Acute cholecystitis K81.0 EXAM: HEENT: Airway examined, oropharynx clear Mallampati Score: II (soft palate, uvula, fauces visible) LUNGS: Clear to auscultation HEART: Regular rate and rhythm, normal S1, S2 ABDOMEN: Normal bowel sounds, soft, non tender, non distended A/P: Proceed with the planned endoscopic procedure. ASA 3 - Patient with moderate systemic disease with functional limitations Sedation Plan: anesthesia Risks and benefits of the procedure explained to the patient. Consent form signed and included in the patient's chart. Claudette Hernandez PGY-4, Gastroenterology * Meme Torres MD - 07/24/2022 4:58 PM EDT Acute Care Surgery H&P Note ID: Eliza Moya is a 57 y.o. female with PMHh/o COPD, PAD s/p right AKA, hypertension, CAD s/p PCI (05/2021), a fib, perforated duodenal ulcer in 2020 s/p multiple ex-laps and Donavan-en-Y duodenojejunostomy, and s/p recent extensive repair of large incisional hernia 05/2022 who presents to [facility] asa transfer for acute cholecystitis. She began to have RUQ pain this morning when she needed to have a BM and her daughter in law gave her some stool softeners. She states she had a large bowel movement and the RUQ pain persisted. She felt very nauseated, but not enough to throw up. She says it was constant and radiated to her back. She denies any association with eating food. She presented to OSH where they told her she had sludgein her gall bladder. Currently she does not feel the RUQ as badly, but dose endorse that if she presses it, then she does feel it. She currently denies any current N/V, F/C, CP, SOB, and N/T Secondary Issues: Past Medical History: Diagnosis Date ??? CAD (coronary artery disease) ??? COPD (chronic obstructive pulmonary disease) ??? HTN (hypertension) ??? Hypothyroid ??? PAD (peripheral artery disease) O: Last value Range last 24hrs Temperature Temp: 36.8 ??C (98.2 ??F) Temp: [36.8 ??C (98.2 ??F)] Heart Rate Heart Rate: -- Blood Pressure BP: 127/60 BP: (127)/(60) Respiratory Rate Resp: 18 Resp: [18] SpO2 SpO2: 92 % SpO2: [92 %] No intake/output data recorded. Physical Exam: GEN: Resting comfortably in bed, pleasant, conversant, NAD. HEENT: Normocephalic, atraumatic, anicteric sclerae CHEST: No increased work of breathing CV: Regular rate. Well perfused. ABD: Soft, mildly tender, large midline scar EXTR: Moving spontaneously. Trace edema. SKIN: Warm and dry. NEURO: Alert and follows commands. Labs: Recent Labs 07/24/222039 WBC 14.7* HGB 11.9 HCT 38.0 PLATELET 468* PT 17.8* INR 1.6 PTT 34 Recent Labs 07/24/222039 NA 140 K 3.8 CL 105 CO2 27 BUN 12 CREATININE 0.71 GLUCOSE 133 CALCIUM 8.5 Microbiology: None New imaging: Pending second read of OSH CT ASSESSMENT: Eliza Moya is a 57 y.o. female who has had multiple abdominal surgeries, most notably an open ventral hernia repair just over a month ago. Given that her abdominal exam is non-peritoneal, she remains afebrile and HDS, and the number of bowel surgeries she has had in that area, would elect for medical management of her cholecystis, therefore we will begin zosyn at this time. She had not eaten since this morning so will allow her to have clears, but will make her NPO at midnight. PLAN # NEURO: Pain control with tylenol. Avoiding narcotics # CV: C/w atorvastatin # PULM: IS, Trelegy inhaler # GI: Clear Liquid, pantoprazole # FEN: MIVF until tolerating PO # : External catheter # ENDO: KAVON # ID: IV Zosyn (07/24 - # PPX: PPI IS SCDs, SQ heparin # LINES: PIV # DISPO: Pending clinical course , Attempt Cardiopulmonary Resuscitation - Inpatient Ricky Partida MD, PGY1 Acute Care Surgery Team pager [phone] Attending Addendum I have seen and examined the patient, I have reviewed the vitals, labs and pertinent imaging. I have discussed the documentation above and agree, with the following comments: Ms. Moya is a 57yoF known to me after her prolonged admission in 05/2020 due to perforated ulcer requiring RouxY reconstruction for repair and multiple abdominal operations, with subsequent formation of a large ventral hernia s/p repair with bilateral transversus abdominus release with retrorectus placement of [id number] mesh on 06/01/22, now presenting with upper abdominal pain. She presented to another facility after developing RUQ / epigastric pain radiating to her back accompanied with episodes of vomiting brought on by the pain. At the referring facility she had a WBC of 22, along with elevated AST/ALT. Her CT scan was concerning for cholecystitis. She was transferred here for further care. On arrival she is in good spirits, and has minimal upper abdominal tenderness on exam. Will repeat CBC / CMP here. Starting zosyn for antibiotics. The hope is to manage her medically with antibiotics given her recent extensive incisional hernia repair which would make operative intervention muchmore complex. We discussed this and she understands - she really wants to avoid any kind of surgery. Will allow her clears until midnight but then NPO p MN just in the event she needs an interventionof some kind. Holding home eliquis/ASA/plavix for now. Continue home statin, PPI, synthroid. Meme Torres MD [phone] documented in this encounter Miscellaneous Notes * Care Management Discharge - Farrah Palomares RN - 07/27/2022 11:29 AM EDT CARE MANAGEMENT FINAL DISCHARGE NOTE Chart reviewed, care reviewed with primary team and at interdisciplinary rounds. Patient is medically ready for discharge to home. Needs for Transition of Care: Plan for discharge is: Home w/o Services Outpatient Agency/Support Group Needs: None Resp Needs: Home O2 *SERENE Company: [employer] Agency Referrals & Follow-up Care: Transportation: family or friend will provide Wheelchair van/Ambulance? No Functional status prior to admission: Assistive Equipment and Assistive Person Home Environment: Others in the home: child(carmita), adult. Current Living Arrangements: home/apartment/condo. Accessibility Concerns:no concerns-ramp to enter home with 1 KEVIN once in. Current Functional Ability: Assistive Person and Equipment DME used at home: wheelchair - manual DME Needed at Discharge: none Patient is insured through: Primary Insurance: MEDICARE Payor: MEDICARE / Plan: MEDICARE PART A & B / Product Type: *No Product type* / Secondary Insurance: MEDICAID [place] Prescription Coverage: Yes This plan was formulated with input from patient, and team. All are in agreement with plan. VICTOR M Grimes,order entry technician Team Case Management Pager #[phone] * Initial Assessments - Jackie French RN - 07/25/2022 5:14 PM EDT Office of Care Management Initial Assessment Jackie French RN reviewed record and discussed patient with Care Team. Source of Information: Team, bedside nurse, medical record, and Child (Denise-DIL) Introduced self/reviewed role; services accepted. Reason for Hospitalization: abdominal pain Covid Vaccination Status: 1st, 2nd & booster Last COVID test: Lab Results Component Value Date [id number] Not Detected 06/01/2021 Past medical History: Past Medical History: Diagnosis Date ??? CAD (coronary artery disease) ??? COPD (chronic obstructive pulmonary disease) ??? HTN (hypertension) ??? Hypothyroid ??? PAD (peripheral artery disease) Hospitalizations Within the Past 30 Days: no previous admission in last 30 days Current Decision-Making Capacity: Self Advance Care Planning: Attempt Cardiopulmonary Resuscitation - Inpatient Received -Advanced Directive: Yes, on file Who is your DPOA-HC?: Child-DIL Current Coping/Education/Information Needs: denies Functional Status Prior to Admission: Home Environment: Others in the home: child(carmita), adult. Current Living Arrangements: home/apartment/condo. Accessibility Concerns:no concerns-ramp to enter home with 1 KEVIN once in. Resource / Environmental Concerns: Resource/Environmental Concerns: none Current DME: Wheelchair Home Address confirmed as: [address] [facility] [address] Social & Family Supports: All names listed below confirmed with patient as current and correct Extended Emergency Contact Information Primary Emergency Contact: Denise Moya Address: [address] [place] [address] [facility] Relation: Son/Wdqdcday-ik-fix Secondary Emergency Contact: Twin Moya Address: [address] [place] [address] [facility] Mobile Relation: Child Current Care Provided by: self Provides Primary Care For: no one Caregiver if needed: child(carmita), adult Community Resources being provided currently: Behavioral Health History: denies Substance Use/Abuse listed: Social History Tobacco Use Smoking Status Former ??? Packs/day: 1.00 ??? Years: 40.00 ??? Pack years: 40.00 ??? Types: Cigarettes ??? Quit date: 10/07/2021 ??? Years since quittin.7 Smokeless Tobacco Never Tobacco Comments never vape In the past year have you used an illegal drug or used a prescription medication for non-medical reasons?: No 0 No problems reported 1-2 Low level 3-5 Moderate level 6-8 Substantial level 9- 10 Severe level In the past year have you had 4 or more drinks a day containing alcohol?: No 0 to 7 points: Low risk 8 to 15 points: Medium risk 16 to 19 points: High risk 20 to 40 points: Addiction likely Other Pertinent/Service Specific Information: denies Health/Prescription Coverage: Primary Insurance: MEDICARE Payor: MEDICARE / Plan: MEDICARE PART A & B / Product Type: *No Product type* / Secondary Insurance: MEDICAID [place] ONLY if patient has Medicare A&B - Does this patient have secondary insurance?: Yes ; Prescription Coverage: Yes Preferred Pharmacy: [facility] [place], [place] - [address] [facility] [address] [facility] [address] Status: Patient is a : No Primary Care Provider confirmed: Nya Hernandez, SERGIO [phone] Patient/Caregiver Goals of Treatment: to discharge home with family supports in place Potential Needs for Transition of Care: none anticipated at this time Agency Referrals: Family agrees to resumption of care referrals to: [facility] (Resp Supplies) Note routed to a Tub Wash Operator who will communicate referrals to facilities and provide any required information. Transportation: family to provide Concerns to be Addressed: none Assessment: Patient is admitted to acute care service for acute cholecystitis. Patient lives with her adult children (Son/DIL). I called and spoke to patient's daughter (Jayden) to obtain all the information for this IA. Patient lives in a 1 story home with a ramp/1 KEVIN. Patient is wheelchair bound at baseline and relies on family for assistance with transferring/ADL's. Denise states that she assists patient's with ADL and transfer needs at baseline. Plan: Plan pending patient's hospital course. Plan for patient to discharge home via private car with family supports in place. A member of the Care Management team will continue to monitor progress, follow for continuity of care and assist with transition of care planning. Jackie French RN, CM Pager-[phone] * Consult Note - Sunny Ventura MD - 07/25/2022 8:55 AM EDT Images from the original note were not included. DIVISION OF GASTROENTEROLOGY & HEPATOLOGY INITIAL CONSULT REQUESTING PROVIDER: Roberta Vega MD NAME: Eliza Moya : 1965 Reason for consult: C/f acute cholangitis HPI: 57yo M w/ PMH of COPD, PAD s/p right AKA, HTN, CAD s/p PCI (05/2021), Afib, perforated duodenal ulcer in 2020 s/p multiple ex-laps and Donavna-en-Y duodenojejunostomy, and s/p??recent extensive??repair of large??incisional hernia 05/2022??who presented to [facility] w/ c/f acute cholecystitis. We are consulte d given c/f acute cholangitis. On review of imaging, pt noted to have stone in cystic duct and ultimately c/f cholangitis. On meeting her, she endorses significant RUQ pain that wraps around to her back. Given her complex surgicalhx and risk for surgery to have to convert to open procedure, ERCP is being considered. Per surgical team, her anatomy is amenable to this. Vitals: Afebrile HR 70s BP 100s/60s Labs: WBC 8.1, Hgb 11.1, Plts 418 Normal BMP Bili 2,2, alk phos 226, AST 119, ALT 158 Imaging: IMPRESSION 1. Obstructing central choledocholithiasis. 2. Acute cholecystitis. 3. Unexpected finding: Decreased size of fluid collection within fistulous interloop sigmoid band/scar extending to the vaginal fornix and posterior bladder wall. ROS: 10-system ROS negative other than that noted above PAST MEDICAL & SURGICAL HX: Past Medical History: Diagnosis Date ??? CAD (coronary artery disease) ??? COPD (chronic obstructive pulmonary disease) ??? HTN (hypertension) ??? Hypothyroid ??? PAD (peripheral artery disease) Past Surgical History: Procedure Laterality Date ??? CT PERITONEAL DRAINAGE 05/27/2020 CT Guided Drain Peritoneal 05/27/2020 [facility] RAD CAT SCAN ??? CT PERITONEAL DRAINAGE 05/27/2020 CT Guided Drain Peritoneal 05/27/2020 [facility] RAD CAT SCAN ??? CT PERITONEAL DRAINAGE 05/27/2020 CT Guided Drain Peritoneal 05/27/2020 [facility] RAD CAT SCAN ??? IR CHEST TUBE PLACEMENT BILATERAL 05/15/2020 IR Chest Tube Placement Bilateral 05/15/2020 Ricky Hollis MD [facility] INTERVENTIONL RAD ??? PRO AMPUTATE THIGH, OPEN CIRCULAR Right 05/11/2020 AMPUTATION, ABOVE-KNEE, OPEN, GUILLOTINE (WRVU 10.98) performed by Christine Montgomery MD at [facility] OR ??? PRO AMPUTATE THIGH, SECONDRY CLOSUR Right 06/13/2020 AMPUTATION, ABOVE-KNEE, SECONDARY CLOSURE OR SCAR REVISION (WRVU 7.29) performed by Christine Montgomery MD at [facility] OR ??? PRO CHOLECYSTOENTER+DONAVAN-EN-Y+GASTROENT N/A 05/12/2020 @DONAVAN-EN-Y WITH GASTROENTEROSTOMY (WRVU 24.21) performed by Meme Torres MD at [facility] OR ??? PRO EXPLORATION OF ABDOMEN N/A 05/11/2020 @EXPLORATORY LAPAROTOMY, WITH/WITHOUT BIOPSY(S) (WRVU 12.54) performed by Meme Torres MD at [facility] OR ??? PRO GASTROJEJUNOSTOMY N/A 05/12/2020 @GASTROJEJUNOSTOMY (WRVU 22.53) performed by Meme Torres MD at [facility] OR ??? PRO MUSCLE-SKIN FLAP, TRUNK N/A 06/01/2022 FLAP, MYOCUTANEOUS OR FASCIOCUTANEOUS, TRUNK (WRVU 23) performed by Whit Nance MD at [facility] OR ??? PRO REOPEN RECENT ABD EXPLORATORY N/A 05/12/2020 @EXPLORATORY LAPAROTOMY, REOPENING OF RECENT (WRVU 17.63) performed by Meme Torres MD at [facility] OR ??? PRO REOPEN RECENT ABD EXPLORATORY Midline 05/16/2020 @EXPLORATORY LAPAROTOMY, REOPENING OF RECENT (WRVU 17.63) performed by Roberta Vega MD at [facility] OR ??? PRO REOPEN RECENT ABD EXPLORATORY Midline 05/18/2020 @EXPLORATORY LAPAROTOMY, REOPENING OF RECENT (WRVU 17.63) performed by Marco Silver MD at [facility] OR ? ? PRO REPAIR AA HERNIA INITIAL > 10 CM REDUCIBLE N/A 06/01/2022 REPAIR ANT. ABDOMINAL HERNIA(S) (IE, EPIGASTRIC, INCISIONAL, VENTRAL, UMBILICAL, SPIGELIAN), INITIAL, W-WO MESH; GREATER THAN 10 CM, REDUCIBLE (WRVU 13.94) performed by Whit Nance MD at [facility] OR ??? PRO REPAIR PERF DUOD/JIMENA ULC-WND/INJ N/A 05/11/2020 GASTRORRHAPHY, SUTURE OF PERFORATED, ULCER, WOUND, INJURY (WRVU 22.83) performed by Meem Torres MD at [facility] OR ??? PRO RESECT SMALL INTEST, SINGL RESEC/ANAS N/A 05/12/2020 @BOWEL RESECTION, SMALL INTESTINE SINGLE ANASTOMOSIS (WRVU 20.82) performed by Meme Torres MD at [facility] OR ??? PRO SUTURE ABD WALL-DEHIS/EVISCER Midline 05/20/2020 @SUTURE, SECONDARY, OF ABD WALL FOR EVISCERATION OR DEHISCENCE (WRVU 12.41) performed by Phuong Akbar MD at [facility] OR ? ? PRO UNLISTED PX ABD PRTM&OMENTUM N/A 05/20/2020 SUTURE OMENTUM (WRVU 11.1) performed by Phuong Akbar MD at [facility] MAIN OR ??? PRO UNLISTED PX ABDOMEN MUSCULOSKELETAL SYSTEM Midline 05/16/2020 WOUND CLOSURE, ABDOMINAL, PARTIAL W/ WOUND VAC (WRVU 6.39) performed by Roberta Vega MD at [facility] MAIN OR ??? PRO UPPER GI ENDOSCOPY, BIOPSY N/A 11/25/2020 EGD WITH BIOPSY (WRVU 2.49) performed by Kervin Rubio MD at [facility] ENDOSCOPY SOCIAL HX: Social History Socioeconomic History ??? Marital status: Spouse name: Not on file ??? Number of children: Not on file ??? Years of education: Not on file ??? Highest education level: Not on file Occupational History ??? Not on file Tobacco Use ??? Smoking status: Former Packs/day: 1.00 Years: 40.00 Pack years: 40.00 Types: Cigarettes Quit date: 10/07/2021 Years since quittin.7 ??? Smokeless tobacco: Never ??? Tobacco comments: never vape Vaping Use ??? Vaping Use: Never used Substance and Sexual Activity ??? Alcohol use: Not Currently Comment: none since 06/2020 ??? Drug use: Never ??? Sexual activity: Yes Comment: deferred Other Topics Concern ??? Not on file Social History Narrative ??? Not on file Social Determinants of Health Financial Resource Strain: Not on file Food Insecurity: Not on file Transportation Needs: Not on file Physical Activity: Not on file Housing Stability: Not on file FAMILY HX: No family history on file. MEDICATIONS Medication list personally reviewed Home Meds: Medications Prior to Admission Medication Sig Dispense Refill Last Dose ??? methocarbamoL (Robaxin) 500 mg tablet Take 1 tablet by mouth 4 times daily as needed. 20 tablet0 ??? polyethylene glycoL (Miralax) 17 gram/dose Powder Take 17 g by mouth daily. ??? docusate sodium (Colace) 100 mg capsule Take 1 capsule by mouth 2 times daily as needed for Constipation. ??? polyethylene glycoL (Miralax) 17 gram oral powder packet Take 17 g by mouth daily. 14 each 0 ??? Trelegy Ellipta 100-62.5-25 mcg Inhale 1 puff into the lungs daily. ??? atorvastatin (Lipitor) 80 mg Tablet Take 1 tablet by mouth every evening. 90 tablet 3 ??? clopidogreL (Plavix) 75 mg Tablet Take 1 tablet by mouth daily. 90 tablet 3 ??? nitroGLYcerin (Nitrostat) 0.4 mg Tablet, Sublingual Place 1 tablet under the tongue every 5 minutes as needed for Chest pain. (Patient not taking: Reported on 12/16/2021) 25 tablet PRN ??? pantoprazole EC (Protonix) 40 mg Tablet, Delayed Release (E.C.) Take 1 tablet by mouth daily. Take one tablet by mouth daily for one month. Then you can stop. 30 tablet 0 ??? gabapentin (Neurontin) 300 mg Capsule Take 1 capsule by mouth Daily at Noon. 90 capsule 12 ??? losartan (Cozaar) 50 mg Tablet Take 50 mg by mouth daily. ??? Eliquis 5 mg Tablet TAKE ONE TABLET BY MOUTH TWICE A DAY ??? furosemide (Lasix) 20 mg Tablet daily. ??? albuteroL 90 mcg/actuation HFA Aerosol Inhaler INHALE TWO PUFFS BY MOUTH EVERY 4 TO 6 HOURS NEEDED FOR COUGH ??? traZODone (Desyrel) 50 mg Tablet Take 0.5 tablets by mouth nightly. (Patient taking differently: Take 50 mg by mouth nightly.) 90 tablet 3 ??? levothyroxine (Synthroid) 50 mcg Tablet Take 1 tablet by mouth every morning. 90 tablet 3 ??? multivitamin with minerals (THERA-M) 9 mg iron-400 mcg Tablet Take 1 tablet by mouth daily. Current Meds: Scheduled: ??? magnesium sulfate 2 g Intravenous Once ??? [MAR Hold] atorvastatin 80 mg Oral QPM ??? [MAR Hold] levothyroxine 50 mcg Oral QAM ??? [MAR Hold] multivitamin with minerals 1 tablet Oral Daily ??? [MAR Hold] pantoprazole EC 40 mg Oral Daily ??? [MAR Hold] polyethylene glycoL 17 g Oral Daily ??? [MAR Hold] tjfktxdfyvf-sgjubpzydafp-kskbaznyqm 1 puff Inhalation Daily ??? sodium chloride 0.9 % (flush) 5 mL Intravenous BID ??? [MAR Hold] senna-docusate 2 tablet Oral BID ??? [MAR Hold] heparin (porcine) 5,000 Units Subcutaneous Q8H LEMUEL ??? [MAY Hold] piperacillin-tazobactam 3.375 g Intravenous Q8H ??? [May] traZODone 50 mg Oral Nightly ??? [MAY Hold] acetaminophen 975 mg Oral Q6H LEMUEL Drips: PRN: [MAY Hold] oxyCODONE, [MAY Hold] albuteroL, sodium chloride 0.9 % (flush), lidocaine Allergies: Allergies Allergen Reactions ??? Doxycycline Rash RADHA- unknown ??? Sulfa (Sulfonamide Antibiotics) Rash RADHA- unknown ??? Vicodin [Hydrocodone-Acetaminophen] Other (See Comments) RADHA- unknown OBJECTIVE Vitals: T Temp: [36.3 ??C (97.3 ??F)-36.8 ??C (98.2 ??F)] HR Heart Rate: -- BP BP: (106-127)/(58-64) RR Resp: [16-18] SpO2 SpO2: [92 %-97 %] 07/24 0701 - 07/25 0700 In: 360 [P.O.:360] Out: 425 [Urine:425] Wt Last Admit Physical Exam: CONST: Awake, alert, no acute distress HEENT: moist mucous membranes, no oral thrush GI: abdomen soft, non-tender, non-distended, tympanic to percussion MSK: legs warm, palpable pulses b/l, no significant edema SKIN: No jaundice, rash, or bruising NEURO: Grossly intact, moves all extremities PSYCH: Pleasant, appropriate affect Labs: Labs personally reviewed in eDH CBC: Recent Labs 07/25/2239907/24/222039 WBC 8.1 14.7* HGB 11.1* 11.9 PLATELET 418* 468* MCV 84.6 83.2 RDWCV 14.5* 14.6* COAG: Recent Labs 07/24/222039 PTT 34 INR 1.6 PT 17.8* CHEM: Recent Labs 07/25/22 04007/24/222039 CREATININE 0.71 0.71 BUN 11 12 NA 141 140 K 3.9 3.8 CL 106 105 CO2 28 27 MAGNESIUM 0.80 -- CALCIUM 8.4* 8.5 HEPATIC: Recent Labs 07/25/22 0400 07/24/22 2040 BILITOT 2.2* 1.9* ALKPHOS 226* 255* AST 119* 160* ALT 158* 180* ALBUMIN 3.2 3.8 LIPASE -- 21 INFLAMM: No results for input(s): CRP in the last 168 hours. IMAGING: Reports and images personally reviewed in eDH. Images independently interpreted. Request For 2nd Read CT Abdomen & Pelvis Final Result Abnormal 1. Obstructing central choledocholithiasis. 2. Acute cholecystitis. 3. Unexpected finding: Decreased size of fluid collection within fistulous interloop sigmoid band/scar extending to the vaginal fornix and posterior bladder wall. Thank you for letting us participate in the care of this patient. If you are a health care provider and have any questions regarding this report, please contact the number below. For patients who have questions please contact the health child care center assistant director that requested your imaging first. Electronically signed by: Rukhsana Vega MD, [facility] ([phone]), at 07/25/2022 6:38 AM XR ERCP (Results Pending) ENDOSCOPY: Reports and images personally reviewed in e[facility] EGD 11/2020: Impression: ?- Normal esophagus. ?- Z-line regular, 40 cm from the ?incisors. ?- Normal stomach. Biopsied. ?- Normal examined morongo duodenum. ?S/p duodenojejunostomy, normal ?anastomosis, no inflammation ?Normaql jejunal limb and blind end ?jejunal pouch ?Ulcer has healed Recommendation: ?- Await pathology results. ?Consider maintenance with PPI if H ?Pylori is negative ASSESSMENT & PLAN: 57yo M w/ PMH of COPD, PAD s/p right AKA, HTN, CAD s/p PCI (05/2021), Afib, perforated duodenal ulcer in 2020 s/p multiple ex-laps and Donavan-en-Y duodenojejunostomy, and s/p??recent extensive??repair of large??incisional hernia 05/2022??who presented to [facility] w/ c/f acute cholecystitis. We are consulte d given c/f acute cholangitis. After reviewing her imaging, appears she does have stone in cystic duct c/w choledocholithiasis, likely driving her current clinical picture and c/f acute cholangitis. Will proceed w/ERCP and sphincterotomy with sweeping of ducts - her anatomy is amenable to this. Continue to trend LFTs, continue broad spectrum abx. Pain control per primary team. Recommendations: - NPO now for ERCP - Trend LFTs - Continue abx - Pain control per primary Patient seen with Dr. Lorenzo Hernandez MD PGY-4, Gastroenterology ADDENDUM: Interviewed and examined Ms. Moya with Dr. Hernandez and I agree with assessment plan asoutlined by her note. She does appear to have a stone impacted in the distal common bile duct and David worried given her elevated white blood cell count, right upper quadrant pain, fevers that she does not fact have ascending cholangitis. We will bring her urgently this morning for ERCP and have further recommendations following the procedure. Please keep her n.p.o. and continue her antibiotics. documented in this encounter Plan of Treatment Not on file documented as of this encounter Procedures Procedure Name Priority Date/Time Associated Diagnosis Comments HEMOGRAM Routine 07/27/2022 3:47 AM EDT DIFFERENTIAL, AUTOMATED Routine 07/27/2022 3:47 AM EDT CBC (WITH DIFF) Routine 07/27/2022 3:47 AM EDT PHOSPHORUS Routine 07/27/2022 3:47 AM EDT MAGNESIUM Routine 07/27/2022 3:47 AM EDT COMPREHENSIVE METABOLIC PANEL Routine 07/27/2022 3:47 AM EDT POTASSIUM STAT 07/26/2022 9:39 AM EDT HEMOGRAM Routine 07/26/2022 2:29 AM EDT DIFFERENTIAL, AUTOMATED Routine 07/26/2022 2:29 AM EDT CBC (WITH DIFF) Routine 07/26/2022 2:29 AM EDT PHOSPHORUS Routine 07/26/2022 2:29 AM EDT MAGNESIUM Routine 07/26/2022 2:29 AM EDT COMPREHENSIVE METABOLIC PANEL Routine 07/26/2022 2:29 AM EDT XR ERCP Routine 07/25/2022 11:46 AM EDT Ercp, Sphincterotomy ([id number]) 07/25/2022 10:22 AM EDT Calculus of bile duct with acute cholangitis with obstruction Ercp, W/Removal Stone, Anselmo/Pancr Ducts ([id number]) 07/25/2022 10:22 AM EDT Calculus of bile duct with acute cholangitis with obstruction ERCP Routine 07/25/2022 10:17 AM EDT HEMOGRAM Routine 07/25/2022 4:00 AM EDT DIFFERENTIAL, AUTOMATED Routine 07/25/2022 4:00 AM EDT CBC (WITH DIFF) Routine 07/25/2022 4:00 AM EDT PHOSPHORUS Routine 07/25/2022 4:00 AM EDT MAGNESIUM Routine 07/25/2022 4:00 AM EDT COMPREHENSIVE METABOLIC PANEL Routine 07/25/2022 4:00 AM EDT REQUEST FOR 2ND READ CT ABDOMEN AND PELVIS Routine 07/24/2022 11:26 PM EDT HEMOGRAM Routine 07/24/2022 8:40 PM EDT DIFFERENTIAL, AUTOMATED Routine 07/24/2022 8:40 PM EDT HC PARTIAL THROMBOPLASTIN TIME Routine 07/24/2022 8:40 PM EDT PROTHROMBIN TIME Routine 07/24/2022 8:40 PM EDT CBC (WITH DIFF) Routine 07/24/2022 8:40 PM EDT LIPASE Routine 07/24/2022 8:40 PM EDT AMYLASE Routine 07/24/2022 8:40 PM EDT COMPREHENSIVE METABOLIC PANEL Routine 07/24/2022 8:40 PM EDT documented in this encounter Results * (ABNORMAL) Differential, Automated (07/27/2022 3:47 AM EDT) Neutrophil % 47.7 % [facility] Neutrophil Absolute 3.89 1.70 - 6.10 x10(3)/mc L [facility] Lymph % 24.6 % [facility] Lymphocytes Abs 2.0 0.9 - 3.2 x10(3)/mc L [facility] Monocyte % 12.5 % [facility] Monocyte Abs 1.0(H) 0.3 - 0.9 x10(3)/mc L [facility] Eos % 12.3 % [facility] Eosinophils Abs 1.0(H) 0.0 - 0.4 x10(3)/mc L [facility] Basophil % 1.4 % [facility] Baso Absolute 0.1 0.0 - 0.1 x10(3)/mc L [facility] Immature Gran % 1.50 % [facility] Comment: Immature granulocytes(IG's)percentage and absolute count will include metamyelocytes, myelocytes, and promyelocytes. Blood smears from CBCs yielding IG's will be scanned manually for concordance. If this scan disagrees with the automated IG or if promyelocytes are noted, a manual differential will be performed. Immature Gran Absolute 0.12(H) 0.00 - 0.04 x10(3)/ L [facility] Blood 07/27/2022 3:47 AM EDT 07/27/2022 4:15 AM EDT Narrative Resulting Agency Comment Spec In Lab Meme Torres MD HEMATOLOGY ORDERABLE S Performing Organization Address City/State/[facility] Co de Phone Number [facility] [place] [address] * (ABNORMAL) Hemogram (07/27/2022 3:47 AM EDT) White Blood Cell 8.1 4.0 - 9.5 x10(3)/ L [facility] Red Blood Cell 3.56(L) 4.00 - 5.21 x10(6)/ L [facility] Hemoglobin 9.2(L) 11.7 - 15.5 g/dL [facility] Hematocrit 30.3(L) 35.7 - 45.8 % [facility] Mean Cell Volume 85.1 82.6 - 94.4 fL [facility] Mean Cell Hemoglobin 25.8(L) 27.1 - 32.0 pg [facility] Mean Cell Hemoglobin Concentration 30.4(L) 31.7 - 35.0 g/dL [facility] Platelet 409(H) 145 - 357 x10(3)/mc L [facility] RDW Standard Deviation 45.2 37.0 - 46.0 fL [facility] RDW coefficient of variation 14.6(H) 11.5 - 14.1 % [facility] Mean Platelet Volume 9.8 7.6 - 12.9 fL [facility] NRBC% auto 0.0 % [facility] NRBC Absolute 0.000 0.000 - 0.000 x10(3)/mc L [facility] Blood 07/27/2022 3:47 AM EDT 07/27/2022 4:15 AM EDT Narrative Resulting Agency Comment Spec In Lab Meme Torres MD HEMATOLOGY ORDERABLE S [facility] [place] [address] * Phosphorus (07/27/2022 3:47 AM EDT) Phosphorus 2.8 2.5 - 4.5 mg/dL [facility] Blood 07/27/2022 3:47 AM EDT 07/27/2022 4:15 AM EDT Narrative Resulting Agency Comment Spec In Lab Roberta Vega MD CHEMISTRY ORDERABLE S Performing Organization Address City/[facility]/ZIP Co de Phone Number [facility] [place] [address] * Magnesium (07/27/2022 3:47 AM EDT) Magnesium 0.79 0.69 - 1.07 mmol/L [facility] Blood 07/27/2022 3:47 AM EDT 07/27/2022 4:15 AM EDT Narrative Resulting Agency Comment Spec In Lab Roberta Vega MD CHEMISTRY ORDERABLE S Performing Organization Address City/[facility]/ZIP Co de Phone Number [facility] [place] [address] * (ABNORMAL) Comprehensive metabolic panel (non-fasting) (07/27/2022 3:47 AM EDT) Glucose 116 65 - 199 mg/dL [facility] Comment:Diabetes: >=200 mg/d L plus symptoms Blood Urea Nitrogen 19(H) 8 - 18 mg/dL [facility] Creatinine 0.66(L) 0.70 - 1.20 mg/dL [facility] Sodium 141 135 - 145 mmol/L [facility] Potassium 4.0 3.5 - 5.0 mmol/L [facility] Comment: Please note: ??Patients with WBC >100,000 may have falsely elevated Potassium levels. ??For accurate Potassium quantification in these patients send serum separator tube (gold top) for subsequent determinations. ??Contact the Clinical Chemistry Laboratory if there are any questions. Chloride 108(H) 98 - 107 mmol/L [facility] Carbon Dioxide 23 22 - 31 mmol/L [facility] Anion Gap 10 5 - 15 mmol/L [facility] Calcium 8.3(L) 8.5 - 10.5 mg/dL [facility] Protein, Total 5.5(L) 6.1 - 8.0 g/dL [facility] Albumin 3.0(L) 3.2 - 5.2 g/dL [facility] Aspartate Aminotransferase 51(H) 0 - 30 unit/L [facility] Alanine Aminotransferase 111(H) 0 - 30 unit/L [facility] Alkaline Phosphatase 248(H) 35 - 105 unit/L [facility] Bilirubin, Total 0.6 0.2 - 1.3 mg/dL [facility] Est Glomerular Filtration Rate 101 >=60 mL/min/1. 73 m?? [facility] Comment: This patient's estimated GFR was calculated using the 2020 CKD-EPI equation. The estimated GFR can vary from the measured GFR by up to 30% in the absence of rapidly changing kidney function. Assessment of the estimated GFR is not appropriate when creatinine concentrations are rapidly changing. For clinical situations in which a more precise estimate of GFR is necessary, consider alternative methods of GFR estimation such as a 24-hour urine creatinine clearance. Assignment of CKD stage 1-5 for patients with an eGFR near the transition point between stages may be based on clinical assessment of muscle mass and symptoms in addition to eGFR. Blood 07/27/2022 3:47 AM EDT 07/27/2022 4:15 AM EDT Narrative Resulting Agency Comment Spec In Lab Meme Torres MD CHEMISTRY ORDERABLES [facility] [place] [address] * Potassium (07/26/2022 9:39 AM EDT) Pathologist [facility] Potassium 4.2 3.5 - 5.0 mmol/L [facility] Comment: Please note: ??Patients with WBC >100,000 may have falsely elevated Potassium levels. ??For accurate Potassium quantification in these patients send serum separator tube (gold top) for subsequent determinations. ??Contact the Clinical Chemistry Laboratory if there are any questions. Blood 07/26/2022 9:39 AM EDT 07/26/2022 9:57 AM EDT Narrative Resulting Agency Comment Spec In Lab Roberta Vega MD CHEMISTRY ORDERABLE S Performing Organization Address [facility] Co de Phone Number [facility] [place] [address] * (ABNORMAL) Differential, Automated (07/26/2022 2:29 AM EDT) Pathologist [facility] Neutrophil % 67.0 % [facility] Neutrophil Absolute 5.83 1.70 - 6.10 x10(3)/mc L [facility] Lymph % 16.4 % [facility] Lymphocytes Abs 1.4 0.9 - 3.2 x10(3)/mc L [facility] Monocyte % 7.8 % [facility] Monocyte Abs 0.7 0.3 - 0.9 x10(3)/mc L [facility] Eos % 7.8 % [facility] Eosinophils Abs 0.7(H) 0.0 - 0.4 x10(3)/mc L [facility] Basophil % 0.7 % [facility] Baso Absolute 0.1 0.0 - 0.1 x10(3)/mc L [facility] Immature Gran % 0.30 % [facility] Comment: Immature granulocytes(IG's)percentage and absolute count will include metamyelocytes, myelocytes, and promyelocytes. Blood smears from CBCs yielding IG's will be scanned manually for concordance. If this scan disagrees with the automated IG or if promyelocytes are noted, a manual differential will be performed. Immature Gran Absolute 0.03 0.00 - 0.04 x10(3)/mc L [facility] Blood 07/26/2022 2:29 AM EDT 07/26/2022 2:46 AM EDT Narrative Resulting Agency Comment Spec In Lab Meme Torres MD HEMATOLOGY ORDERABLE S Performing Organization Address City/[facility]/ZIP Co de Phone Number [facility] [place] [address] * (ABNORMAL) Hemogram (07/26/2022 2:29 AM EDT) White Blood Cell 8.7 4.0 - 9.5 x10(3)/mc L [facility] Red Blood Cell 3.78(L) 4.00 - 5.21 x10(6)/mc L [facility] Hemoglobin 9.9(L) 11.7 - 15.5 g/dL [facility] Hematocrit 32.4(L) 35.7 - 45.8 % [facility] Mean Cell Volume 85.7 82.6 - 94.4 fL [facility] Mean Cell Hemoglobin 26.2(L) 27.1 - 32.0 pg [facility] Mean Cell Hemoglobin Concentration 30.6(L) 31.7 - 35.0 g/dL [facility] Platelet 380(H) 145 - 357 x10(3)/mc L [facility] RDW Standard Deviation 44.7 37.0 - 46.0 fL [facility] RDW coefficient of variation 14.4(H) 11.5 - 14.1 % [facility] Mean Platelet Volume 9.5 7.6 - 12.9 fL [facility] NRBC% auto 0.0 % [facility] NRBC Absolute 0.000 0.000 - 0.000 x10(3)/mc L [facility] Blood 07/26/2022 2:29 AM EDT 07/26/2022 2:46 AM EDT Narrative Resulting Agency Comment Spec In Lab Meme Torres MD HEMATOLOGY ORDERABLE S Performing Organization Address City/[facility]/ZIP Co de Phone Number [facility] [place] [address] * Phosphorus (07/26/2022 2:29 AM EDT) Phosphorus 3.0 2.5 - 4.5 mg/dL [facility] Blood 07/26/2022 2:29 AM EDT 07/26/2022 2:46 AM EDT Narrative Resulting Agency Comment Spec In Lab Roberta Vega MD CHEMISTRY ORDERABLE S Performing Organization Address [facility] Co de Phone Number [facility] [place] [address] * Magnesium (07/26/2022 2:29 AM EDT) Magnesium 0.90 0.69 - 1.07 mmol/L [facility] Blood 07/26/2022 2:29 AM EDT 07/26/2022 2:46 AM EDT Narrative Resulting Agency Comment Spec In Lab Roberta Vega MD CHEMISTRY ORDERABLE S Performing Organization Address [facility] Co de Phone Number [facility] [place] [address] * (ABNORMAL) Comprehensive metabolic panel (non-fasting) (07/26/2022 2:29 AM EDT) Glucose 111 65 - 199 mg/dL [facility] Comment:Diabetes: >=200 mg/d L plus symptoms Blood Urea Nitrogen 13 8 - 18 mg/dL [facility] Creatinine 0.67(L) 0.70 - 1.20 mg/dL [facility] Sodium 141 135 - 145 mmol/L [facility] Potassium 3.5 3.5 - 5.0 mmol/L [facility] Comment: Please note: ??Patients with WBC >100,000 may have falsely elevated Potassium levels. ??For accurate Potassium quantification in these patients send serum separator tube (gold top) for subsequent determinations. ??Contact the Clinical Chemistry Laboratory if there are any questions. Chloride 107 98 - 107 mmol/L [facility] Carbon Dioxide 27 22 - 31 mmol/L [facility] Anion Gap 7 5 - 15 mmol/L [facility] Calcium 7.8(L) 8.5 - 10.5 mg/dL [facility] Protein, Total 5.4(L) 6.1 - 8.0 g/dL [facility] Albumin 3.1(L) 3.2 - 5.2 g/dL [facility] Aspartate Aminotransferase 66(H) 0 - 30 unit/L [facility] Alanine Aminotransferase 132(H) 0 - 30 unit/L [facility] Alkaline Phosphatase 225(H) 35 - 105 unit/L [facility] Bilirubin, Total 1.3 0.2 - 1.3 mg/dL [facility] Est Glomerular Filtration Rate 101 >=60 mL/min/1. 73 m?? [facility] Comment: This patient's estimated GFR was calculated using the 2020 CKD-EPI equation. The estimated GFR can vary from the measured GFR by up to 30% in the absence of rapidly changing kidney function. Assessment of the estimated GFR is not appropriate when creatinine concentrations are rapidly changing. For clinical situations in which a more precise estimate of GFR is necessary, consider alternative methods of GFR estimation such as a 24-hour urine creatinine clearance. Assignment of CKD stage 1-5 for patients with an eGFR near the transition point between stages may be based on clinical assessment of muscle mass and symptoms in addition to eGFR. Blood 07/26/2022 2:29 AM EDT 07/26/2022 2:46 AM EDT Narrative Resulting Agency Comment Spec In Lab Meme Torres MD CHEMISTRY ORDERABLES Performing Organization Address City/[facility]/ZIP Co de Phone Number [facility] [place] [address] * XR ERCP (07/25/2022 11:46 AM EDT) Narrative [facility] - 07/25/2022 11:47 AM EDT See PACS for result report. Sunny Ventura MD IMG FILM LIBRARY OR DERABLES Performing Organization Address City/[facility]/ZIP Co de Phone Number [place], [place] * ERCP (07/25/2022 10:17 AM EDT) ERCP [facility] Endoscopy Procedure Date: 07/25/2022 10:17 AM ? Patient Name: Eliza Moya ? Date of : 1965 ? Age: 57 ? Order #: [id number] ? Instrument Name: [id number] ? Procedure: ? ERCP Indications: ? Evaluation and possible treatment ? of bile duct stone(s) Providers: ? Sunny Ventura MD, Amanda ? Theresa Ann, ? [employer] Referring MD: ? Medicines: ? General Anesthesia; Indomethacin ? 100 mg DC Complications: ? No immediate complications. Procedure: ? Pre-Anesthesia Assessment: ? - Prior to the procedure, a History ? and Physical was performed, and ? patient medications and allergies ? were reviewed. The patient is ? competent. The risks and benefits ? of the procedure and the sedation ? options and risks were discussed ? with the patient. All questions ? were answered and informed consent ? was obtained. Patient ? identification and proposed ? procedure were verified by the ? physician in the pre-procedure ? area. Mental Status Examination: ? alert and oriented. Airway ? Examination: normal oropharyngeal ? airway and neck mobility. ? Respiratory Examination: clear to ? auscultation. CV Examination: ? normal. Prophylactic Antibiotics: ? The patient does not require ? prophylactic antibiotics. Prior ? Anticoagulants: The patient has ? taken no anticoagulant or ? antiplatelet agents. ASA Grade ? Assessment: III - A patient with ? severe systemic disease. After ? reviewing the risks and benefits, ? the patient was deemed in ? satisfactory condition to undergo ? the procedure. The anesthesia plan ? was to use general anesthesia. ? Immediately prior to administration ? of medications, the patient was ? re-assessed for adequacy to receive ? sedatives. The heart rate, ? respiratory rate, oxygen ? saturations, blood pressure, ? adequacy of pulmonary ventilation, ? and response to care were monitored ? throughout the procedure. The ? physical status of the patient was ? re-assessed after the procedure. ? The procedure, indications, ? benefits, risks and alternatives ? were explained to the patient. ? Specifically discussed were ? potential complications including, ? but not limited to, bleeding, ? perforation, infection, ? pancreatitis, missing a cancer, and ? adverse medication reactions. The ? Duodenoscope was introduced through ? the mouth, and advanced to the ? duodenum where it was used to ? inject contrast into and used to ? inject contrast into the bile duct. ? The ERCP was accomplished without ? difficulty. The patient tolerated ? the procedure well. ? Findings: ? The monotype setter film was normal with the exception of clips ? in the RUQ. The esophagus was successfully intubated ? under direct vision. The scope was advanced to a ? normal major papilla in the descending duodenum ? without detailed examination of the pharynx, larynx ? and associated structures, and upper GI tract. There ? was a widely patent DJ anastomosis in the bulb. The ? upper GI tract was otherwise normal. The bile duct ? was deeply cannulated with the short-nosed traction ? sphincterotome and a 35 Jagwire advanced to the ? intrahepatic ducts. Contrast was injected. ? Cholangiogram revealed a dilated CBD to 7 mm with a ? round 5 mm filling defect in the distal CBD. Contrast ? did not fill into the gallbladder and I did not ? visualize any stones in the GB. A 10 mm biliary ? sphincterotomy was made with a sphincterotome using ? ERBE electrocautery. There was no post-sphincterotomy ? bleeding. After completing the sphincterotomy, a 5 mm ? brown pigment stone spontaneously came from the CBD ? and copious puss drained from the papilla. The duct ? was then swept multiple times with the 11.5 mm ? balloon and no further stones were remove but copious ? pus and dark bile was removed from the duct. ? Occlusion cholangiogram revealed no focal filling ? defects. The PD was not accessed. ? Moderate Sedation: ? Not applicable - See Anesthesia documentation Impression: ?- Choledocholithiasis causing acute ? cholangitis without cholecystitis Recommendation: ?- Return to floor ? - Continue antibiotics ? - Advance diet as tolerated ? Procedure Code(s): ? --- Professional --- ? 91978, Endoscopic retrograde ? cholangiopancreatography (ERCP); ? with sphincterotomy/papillotomy CPT copyright 2020 [employer]. All rights reserved. The codes documented in this report are preliminary and upon material flow analyst review may be revised to meet current compliance requirements. Attending Participation: ? I personally performed the entire procedure. ? Sunny Ventura MD 07/25/2022 11:11:57 AM This report has been signed electronically. Number of Addenda: 0 Note Initiated On: 07/25/2022 10:17 AM PROVATION 07/25/2022 10:1 7 AM EDT Sunny Ventura MD GENERAL SURGICAL ORD ERABLES PROVATION * Phosphorus (07/25/2022 4:00 AM EDT) Phosphorus 3.5 2.5 - 4.5 mg/dL [facility] Blood Venous Draw / Unknown 07/25/2022 4:00 AM EDT 07/25/2022 4:27 AM EDT Narrative Resulting Agency Comment Spec In Lab Danna Alejandro MD CHEMISTRY ORDERABL ES Performing Organization Address City/[facility]/[place] [address] * Magnesium (07/25/2022 4:00 AM EDT) Magnesium 0.80 0.69 - 1.07 mmol/L [facility] Blood Venous Draw / Unknown 07/25/2022 4:00 AM EDT 07/25/2022 4:27 AM EDT Narrative Resulting Agency Comment Spec In Lab Danna Alejandro MD CHEMISTRY ORDERABL ES Performing Organization Address [facility] [place] [place] [address] * (ABNORMAL) Differential, Automated (07/25/2022 4:00 AM EDT) [facility] Neutrophil % 66.0 % [facility] Neutrophil Absolute 5.35 1.70 - 6.10 x10(3)/mc L [facility] Lymph % 15.4 % [facility] Lymphocytes Abs 1.2 0.9 - 3.2 x10(3)/mc L [facility] Monocyte % 8.3 % [facility] Monocyte Abs 0.7 0.3 - 0.9 x10(3)/mc L [facility] Eos % 8.9 % [facility] Eosinophils Abs 0.7(H) 0.0 - 0.4 x10(3)/mc L [facility] Basophil % 0.9 % [facility] Baso Absolute 0.1 0.0 - 0.1 x10(3)/mc L [facility] Immature Gran % 0.50 % [facility] Comment: Immature granulocytes(IG's)percentage and absolute count will include metamyelocytes, myelocytes, and promyelocytes. Blood smears from CBCs yielding IG's will be scanned manually for concordance. If this scan disagrees with the automated IG or if promyelocytes are noted, a manual differential will be performed. Immature Gran Absolute 0.04 0.00 - 0.04 x10(3)/mc L [facility] Blood 07/25/2022 4:00 AM EDT 07/25/2022 4:26 AM EDT Narrative Resulting Agency Comment Spec In Lab Meme Torres MD HEMATOLOGY ORDERABLE S [facility] [place] [address] * (ABNORMAL) Hemogram (07/25/2022 4:00 AM EDT) White Blood Cell 8.1 4.0 - 9.5 x10(3)/mc L [facility] Red Blood Cell 4.16 4.00 - 5.21 x10(6)/mc L [facility] Hemoglobin 11.1(L) 11.7 - 15.5 g/dL [facility] Hematocrit 35.2(L) 35.7 - 45.8 % [facility] Mean Cell Volume 84.6 82.6 - 94.4 fL [facility] Mean Cell Hemoglobin 26.7(L) 27.1 - 32.0 pg [facility] Mean Cell Hemoglobin Concentration 31.5(L) 31.7 - 35.0 g/dL [facility] Platelet 418(H) 145 - 357 x10(3)/mc L [facility] RDW Standard Deviation 44.6 37.0 - 46.0 fL [facility] RDW coefficient of variation 14.5(H) 11.5 - 14.1 % [facility] Mean Platelet Volume 9.5 7.6 - 12.9 fL [facility] NRBC% auto 0.0 % [facility] NRBC Absolute 0.000 0.000 - 0.000 x10(3)/mc L [facility] Blood 07/25/2022 4:00 AM EDT 07/25/2022 4:26 AM EDT Narrative Resulting Agency Comment Spec In Lab Meme Torres MD HEMATOLOGY ORDERABLE S Performing Organization Address City/[facility]/ZIP Co de Phone Number [facility] [place] [address] * (ABNORMAL) Comprehensive metabolic panel (non-fasting) (07/25/2022 4:00 AM EDT) Glucose 112 65 - 199 mg/dL [facility] Comment:Diabetes: >=200 mg/d L plus symptoms Blood Urea Nitrogen 11 8 - 18 mg/dL [facility] Creatinine 0.71 0.70 - 1.20 mg/dL [facility] Sodium 141 135 - 145 mmol/L [facility] Potassium 3.9 3.5 - 5.0 mmol/L [facility] Comment: Please note: ??Patients with WBC >100,000 may have falsely elevated Potassium levels. ??For accurate Potassium quantification in these patients send serum separator tube (gold top) for subsequent determinations. ??Contact the Clinical Chemistry Laboratory if there are any questions. Chloride 106 98 - 107 mmol/L [facility] Carbon Dioxide 28 22 - 31 mmol/L [facility] Anion Gap 7 5 - 15 mmol/L [facility] Calcium 8.4(L) 8.5 - 10.5 mg/dL [facility] Protein, Total 5.8(L) 6.1 - 8.0 g/dL [facility] Albumin 3.2 3.2 - 5.2 g/dL [facility] Aspartate Aminotransferase 119(H) 0 - 30 unit/L [facility] Alanine Aminotransferase 158(H) 0 - 30 unit/L [facility] Alkaline Phosphatase 226(H) 35 - 105 unit/L [facility] Bilirubin, Total 2.2(H) 0.2 - 1.3 mg/dL [facility] Est Glomerular Filtration Rate 98 >=60 mL/min/1. 73 m?? [facility] Comment: This patient's estimated GFR was calculated using the 2020 CKD-EPI equation. The estimated GFR can vary from the measured GFR by up to 30% in the absence of rapidly changing kidney function. Assessment of the estimated GFR is not appropriate when creatinine concentrations are rapidly changing. For clinical situations in which a more precise estimate of GFR is necessary, consider alternative methods of GFR estimation such as a 24-hour urine creatinine clearance. Assignment of CKD stage 1-5 for patients with an eGFR near the transition point between stages may be based on clinical assessment of muscle mass and symptoms in addition to eGFR. Blood 07/25/2022 4:00 AM EDT 07/25/2022 4:27 AM EDT Narrative Resulting Agency Comment Spec In Lab Meme Torres MD CHEMISTRY ORDERABLES [facility] [place] [address] * (ABNORMAL) Request For 2nd Read CT [...] who have questions please contact the health child care center assistant director that requested your imaging first. ? Narrative 07/25/2022 6:38 AM EDT EXAMINATION: REQUEST FOR 2ND READ CT ABDOMEN AND PELVIS CLINICAL HISTORY: 57yoF with extensive prior surgical history of RouxY for duodenal ulcer, recent large incisional hernia repair with mesh, now here with concern for cholecystitis.; Sending Institution [facility]; Date of exam [id number]; I believe a reinterpretation of this exam may alter care of Patient. Yes TECHNIQUE: Helical CT of the abdomen and pelvis following the intravenous administration of contrast. 90 cc Omnipaque 350 intravenous contrast. Oral contrast was not administered. Study performed July 24, 2022 at [facility]. COMPARISON: March 17, 2022 FINDINGS: Lower [...] Unexpected Finding Meme Torres MD IMG OUTSIDE [facility] TATION ORDERABLES * (ABNORMAL) Differential, Automated (07/24/2022 8:40 PM EDT) Neutrophil % 79.3 % [facility] Neutrophil Absolute 11.63(H) 1.70 - 6.10 x10(3)/mc L [facility] Lymph % 7.6 % [facility] Lymphocytes Abs 1.1 0.9 - 3.2 x10(3)/mc L [facility] Monocyte % 7.1 % [facility] Monocyte Abs 1.0(H) 0.3 - 0.9 x10(3)/mc L [facility] Eos % 4.7 % [facility] Eosinophils Abs 0.7(H) 0.0 - 0.4 x10(3)/mc L [facility] Basophil % 0.8 % [facility] Baso Absolute 0.1 0.0 - 0.1 x10(3)/mc L [facility] Immature Gran % 0.50 % [facility] Comment: Immature granulocytes(IG's)percentage and absolute count will include metamyelocytes, myelocytes, and promyelocytes. Blood smears from CBCs yielding IG's will be scanned manually for concordance. If this scan disagrees with the automated IG or if promyelocytes are noted, a manual differential will be performed. Immature Gran Absolute 0.07(H) 0.00 - 0.04 x10(3)/ L [facility] Blood 07/24/2022 8:40 PM EDT 07/24/2022 8:46 PM EDT Narrative Resulting Agency Comment Spec In Lab Rupesh Festus Burroughs MD HEMATOLOGY ORDERABLE S Performing Organization Address City/State/[facility] Co de Phone Number [facility] [place] [address] * (ABNORMAL) Hemogram (07/24/2022 8:40 PM EDT) White Blood Cell 14.7(H) 4.0 - 9.5 x10(3)/mc L [facility] Red Blood Cell 4.57 4.00 - 5.21 x10(6)/mc L [facility] Hemoglobin 11.9 11.7 - 15.5 g/dL [facility] Hematocrit 38.0 35.7 - 45.8 % [facility] Mean Cell Volume 83.2 82.6 - 94.4 fL [facility] Mean Cell Hemoglobin 26.0(L) 27.1 - 32.0 pg [facility] Mean Cell Hemoglobin Concentration 31.3(L) 31.7 - 35.0 g/dL [facility] Platelet 468(H) 145 - 357 x10(3)/mc L [facility] RDW Standard Deviation 44.1 37.0 - 46.0 fL [facility] RDW coefficient of variation 14.6(H) 11.5 - 14.1 % [facility] Mean Platelet Volume 9.1 7.6 - 12.9 fL [facility] NRBC% auto 0.0 % [facility] NRBC Absolute 0.000 0.000 - 0.000 x10(3)/mc L [facility] Blood 07/24/2022 8:40 PM EDT 07/24/2022 8:46 PM EDT Narrative Resulting Agency Comment Spec In Lab Rupesh Burroughs MD HEMATOLOGY ORDERABLE S [facility] [place] [address] * Amylase (07/24/2022 8:40 PM EDT) Amylase 41 28 - 100 unit/L [facility] Blood 07/24/2022 8:40 PM EDT 07/24/2022 8:46 PM EDT Narrative Resulting Agency Comment Spec In Lab Roberta Vega MD CHEMISTRY ORDERABLE S Performing Organization Address [facility] Co de Phone Number [facility] [place] [address] * Lipase (07/24/2022 8:40 PM EDT) Lipase 21 0 - 60 unit/L [facility] Blood 07/24/2022 8:40 PM EDT 07/24/2022 8:46 PM EDT Narrative Resulting Agency Comment Spec In Lab Roberta Vega MD CHEMISTRY ORDERABLE S Performing Organization Address [facility] Co de Phone Number [facility] [place] [address] * (ABNORMAL) Comprehensive metabolic panel (non-fasting) (07/24/2022 8:40 PM EDT) Glucose 133 65 - 199 mg/dL [facility] Comment:Diabetes: >=200 mg/d L plus symptoms Blood Urea Nitrogen 12 8 - 18 mg/dL [facility] Creatinine 0.71 0.70 - 1.20 mg/dL [facility] Sodium 140 135 - 145 mmol/L [facility] Potassium 3.8 3.5 - 5.0 mmol/L [facility] Comment: Please note: ??Patients with WBC >100,000 may have falsely elevated Potassium levels. ??For accurate Potassium quantification in these patients send serum separator tube (gold top) for subsequent determinations. ??Contact the Clinical Chemistry Laboratory if there are any questions. Chloride 105 98 - 107 mmol/L [facility] Carbon Dioxide 27 22 - 31 mmol/L [facility] Anion Gap 8 5 - 15 mmol/L [facility] Calcium 8.5 8.5 - 10.5 mg/dL [facility] Protein, Total 6.7 6.1 - 8.0 g/dL [facility] Albumin 3.8 3.2 - 5.2 g/dL [facility] Aspartate Aminotransferase 160(H) 0 - 30 unit/L [facility] Alanine Aminotransferase 180(H) 0 - 30 unit/L [facility] Alkaline Phosphatase 255(H) 35 - 105 unit/L [facility] Bilirubin, Total 1.9(H) 0.2 - 1.3 mg/dL [facility] Est Glomerular Filtration Rate 98 >=60 mL/min/1. 73 m?? [facility] Comment: This patient's estimated GFR was calculated using the 2020 CKD-EPI equation. The estimated GFR can vary from the measured GFR by up to 30% in the absence of rapidly changing kidney function. Assessment of the estimated GFR is not appropriate when creatinine concentrations are rapidly changing. For clinical situations in which a more precise estimate of GFR is necessary, consider alternative methods of GFR estimation such as a 24-hour urine creatinine clearance. Assignment of CKD stage 1-5 for patients with an eGFR near the transition point between stages may be based on clinical assessment of muscle mass and symptoms in addition to eGFR. Blood 07/24/2022 8:40 PM EDT 07/24/2022 8:46 PM EDT Narrative Resulting Agency Comment Spec In Lab Roberta Vega MD CHEMISTRY ORDERABLE S [facility] [place] [address] * APTT (07/24/2022 8:40 PM EDT) Partial Thromboplastin Time 34 25 - 37 sec [facility] Comment: The PTT is NOT appropriate for heparin monitoring. Use the Anti-Xa level for heparin monitoring (HEP UFH) or LMWH monitoring (HEP LMW). A PTT less than 37 seconds generally indicates adequate hemostasis. Blood 07/24/2022 8:40 PM EDT 07/24/2022 8:46 PM EDT Narrative Resulting Agency Comment Spec In Lab Roberta Vega MD HEMATOLOGY ORDERABL ES Performing Organization Address [facility] Co de Phone Number [facility] [place] [address] * (ABNORMAL) Prothrombin Time (07/24/2022 8:40 PM EDT) Prothrombin Time 17.8(H) 9.4 - 12.5 sec [facility] International Normalization Ratio 1.6 [facility] Comment: An INR <2.0 indicates adequate procoagulant activity for hemostasis in most patients without underlying bleeding disorders, though the INR may not adequately reflect hemostatic capacity in patients with liver disease and synthetic impairment. The recommended target INR range for therapeutic anticoagulation is 2.0 ? 3.0 for most applications, though lower and higher ranges may be appropriate depending on clinical circumstances. Blood 07/24/2022 8:40 PM EDT 07/24/2022 8:46 PM EDT Narrative Resulting Agency Comment Spec In Lab Roberta Vega MD HEMATOLOGY ORDERABL ES [facility] [place] [address] documented in this encounter Visit Diagnoses Diagnosis Acute cholecystitis- Primary Calculus of bile duct with acute cholangitis with obstruction Calculus of bile duct without mention of cholecystitis, with obstruction documented in this encounter Admitting Diagnoses Diagnosis Acute cholecystitis documented in this encounter Administered Medications Inactive Administered Medications - up to 3 most recent administrations Medication Order MAR Action Action Date Dose Rate Site acetaminophen (Tylenol) tablet 975 mg 975 mg, Oral, EVERY 6 HOURS SCHEDULED, First dose (after last modification) on 5/20/23 at 0600, Until Discontinued, Maximum dose of acetaminophen is 4,000 mg from all sources in 24 hours. When ordered for pain, acetaminophen should be given even when other ordered pain medications are indicated. , Routine Given 07/27/2022 5:39 AM EDT 975 mg Given 07/26/2022 11:37 PM EDT 975 mg Given 07/26/2022 5:43 PM EDT 975 mg albuteroL (Proventil, Ventolin) (2.5 mg/3 mL) (0.083 %) nebulizer solution 2.5 mg 2.5 mg, Nebulization, EVERY 4 HOURS PRN, Starting on Wed07/24/22 at 2028, Until Wed07/27/22 at 1453, Wheezing, Routine Given 07/25/2022 9:32 PM EDT 2.5 mg Given 07/25/2022 4:12 AM EDT 2.5 mg atorvastatin (Lipitor) tablet 80 mg 80 mg, Oral, EVERY EVENING, First dose on Wed07/24/22 at 2115, Until Discontinued, Routine Given 07/26/2022 5:43 PM EDT 80 mg Given 07/25/2022 5:24 PM EDT 80 mg Given 07/24/2022 8:58 PM EDT 80 mg diclofenac (Voltaren) gel Topical (Top), 4 TIMES DAILY, First dose on Wed07/26/22 at 1315, Until Discontinued, Apply topically to RLE. Total dose not to exceed 32 grams per day over all affected joints. Doses should be measured using the dosing cards supplied with the product., Where is this medication being applied? Please also specify in administration instructions. Other / R leg, Dose of medication being applied? 2 gram dose Given 07/27/2022 8:28 AM EDT 2 g Given 07/26/2022 8:09 PM EDT 1 g Given 07/26/2022 12:52 PM EDT 2 g 1 6- Thigh Anterior (Right) sdidaoqwhyx-uxyhzjemdvzc-xdewxymqvr (Trelegy Ellipta) 100-62.5-25 mcg inhaler 1 puff 1 puff, Inhalation, DAILY, First dose on 07/25/22 at 0900, Until Discontinued, Rinse mouth with water after use (do not swallow)., Routine, Does the patient have the inspiratory effort to support a dry powder inhaler? Yes Given 07/27/2022 8:28 AM EDT 1 puff Given 07/26/2022 6:42 AM EDT 1 puff heparin (porcine) (5,000 units/1 mL) subcutaneous injection 5,000 Units 5,000 Units, Subcutaneous, EVERY 8 HOURS SCHEDULED, First dose on Wed07/24/22 at 2200, Until Discontinued, Routine Given 07/27/2022 5:39 AM EDT 5,000 Unit s Given 07/26/2022 9:30 PM EDT 5,000 Units Given 07/26/2022 1:49 PM EDT 5,000 Units levothyroxine (Synthroid) tablet 50 mcg 50 mcg, Oral, EVERY MORNING, First dose on 07/25/22 at 0700, Until Discontinued, Routine Given 07/27/2022 5:39 AM EDT 50 mcg Given 07/26/2022 6:05 AM EDT 50 mcg Given 07/25/2022 6:11 AM EDT 50 mcg lidocaine (Lidoderm) 5% patch 3 patch 3 patch, Transdermal, Administer over 12 Hours, EVERY 24 HOURS, First dose on Wed07/26/22 at 1800, Until Discontinued, Apply patch(es) for 12 hours, and then remove for 12 hours. Please apply to RLE and abdomen, Routine Patch Applied 07/26/2022 5:42 PM EDT 3 patches 16- Thigh Anterior (Right) multivitamin with minerals (Thera M) tablet 1 tablet 1 tablet, Oral, DAILY, First dose on 07/25/22 at 0900, Until Discontinued, Routine Given 07/27/2022 8:21 AM EDT 1 tablet Given 07/26/2022 8:52 AM EDT 1 tablet Given 07/25/2022 9:00 AM EDT 1 tablet oxyCODONE (Roxicodone) tablet 5 mg 5 mg, Oral, EVERY 4 HOURS PRN, Starting on 07/25/22 at 0836, Until 07/27/22 at 1453, Pain, pain not relieved by tylenol, Routine Given 07/26/2022 3:29 PM EDT 5 mg Given 07/25/2022 9:32 PM EDT 5 mg Given 07/25/2022 3:52 PM EDT 5 mg pantoprazole EC (Protonix) tablet 40 mg 40 mg, Oral, DAILY, First dose on Wed07/25/22 at 0900, Until Discontinued, DO NOT CRUSH OR OPEN, Routine Given 07/27/2022 8:21 AM EDT 40 mg Given 07/26/2022 8:52 AM EDT 40 mg Given 07/25/2022 9:01 AM EDT 40 mg piperacillin-tazobactam (Zosyn) 3.375 g vial attach to sodium chloride 0.9% 50 mL Mini-Bag Plus 3.375 g, Intravenous, EVERY 8 HOURS, First dose on Wed07/24/22 at 2115, Until Discontinued, Administer over 4 Hours, Warning Vesicant/Irritant Medication Do not administer or Y-site with lactated ringers., Indication for (Active or Suspected): GI/Intra-abdominal New Bag 07/27/2022 5:40 AM EDT 3.375 g 12.5 mL/hr New Bag 07/26/2022 8:24 PM EDT 3.375 g 12.5 mL/hr New Bag 07/26/2022 1:47 PM EDT 3.375 g 12.5 mL/hr polyethylene glycoL (Miralax) packet 17 g 17 g, Oral, DAILY, First dose on Wed07/25/22 at 0900, Until Discontinued, Routine Given 07/27/2022 8:20 AM EDT 17 g Given 07/26/2022 8:53 AM EDT 17 g senna-docusate (Pericolace) 8.6-50 mg per tablet 2 tablet 2 tablet, Oral, 2 TIMES DAILY, First dose on Wed07/24/22 at 2115, Until Discontinued, Routine Given 07/27/2022 8:21 AM EDT 2 tablets Given 07/26/2022 8:09 PM EDT 2 tablets Given 07/26/2022 8:52 AM EDT 2 tablets sodium chloride 0.9 % (flush) (BD PosiFlush Normal Saline 0.9) flush 5 mL 5 mL, Intravenous, 2 TIMES DAILY, First dose on Wed07/24/22 at 2115, Until Discontinued, Recovery (Recovery-Hospital Unit), Routine Given 07/26/2022 8:09 PM EDT 5 mLs Given 07/26/2022 8:52 AM EDT 5 mLs Given 07/25/2022 8:45 PM EDT 5 mLs traZODone (Desyrel) tablet 50 mg 50 mg, Oral, NIGHTLY, First dose on Wed07/24/22 at 2315, Until Discontinued, Routine Given 07/26/2022 8:09 PM EDT 50 mg Given 07/25/2022 8:45 PM EDT 50 mg Given 07/24/2022 10:52 PM EDT 50 mg documented in this encounter Active and Recently Administered Medications Times are shown in EDT. Scheduled Medication Order 07/25/2022 07/26/2022 07/27/2022 acetaminophen (Tylenol) tablet 975 mg 975 mg, Oral, EVERY 6 HOURS SCHEDULED, First dose (after last modification) on Wed07/25/22 at 0600, Until Discontinued, Maximum dose of acetaminophen is 4,000 mg from all sources in 24 hours. When ordered for pain, acetaminophen should be given even when other ordered pain medications are indicated. , Routine 0611 (Given - Provider: Gerri Kat RN)1027 (MAY Hold - Provider: Admin Adt - Reason: Transfer to a Procedural area)1132 (MAY Unhold - Provider: Admin Adt)1313 (Given - Provider: Linda Jacob LPN)1724 (Given - Provider: Linda Jacob LPN)2322 (Given - Provider: Leyla Soto RN) 0605 (Given - Provider: Leyla Soto RN)1155 (Given - Provider: Guillermo Maki Jr., RN)1743 (Given - Provider: Linda Jacob LPN)2337 (Given - Provider: Leyla Soto RN) 0539 (Given - Provider: Leyla Soto RN)1200 (Due) atorvastatin (Lipitor) tablet 80 mg 80 mg, Oral, EVERY EVENING, First dose on Wed07/24/22 at 2115, Until Discontinued, Routine 1027 (MAY Hold - Provider: Admin Adt - Reason: Transfer to a Procedural area)1132 (MAY Unhold - Provider: Admin Adt)1724 (Given - Provider: Linda Jacob LPN) 1743 (Given - Provider: Linda Jacob LPN) diclofenac (Voltaren) gel Topical (Top), 4 TIMES DAILY, First dose on Wed07/26/22 at 1315, Until Discontinued, Apply topically to RLE. Total dose not to exceed 32 grams per day over all affected joints. Doses should be measured using the dosing cards supplied with the product., Where is this medication being applied? Please also specify in administration instructions. Other / R leg, Dose of medication being applied? 2 gram dose 1252 (Given - Provider: Linda Jacob LPN)1700 (Not Given - Provider: Linda Jacob LPN - Reason: Patient/family refused)2008 (Given - Provider: Leyla Soto RN) 0828 (Given - Provider: Linda Jacob LPN) fluticasone-umeclidinium- vilanterol (Trelegy Ellipta) 100-62.5-25 mcg inhaler 1 puff 1 puff, Inhalation, DAILY, First dose on Wed07/25/22 at 0900, Until Discontinued, Rinse mouth with water after use (do not swallow)., Routine, Does the patient have the inspiratory effort to support a dry powder inhaler? Yes 0900 (Not Given - Provider: Puhong Bourne RN - Reason: See comment - Comment: not verified by pharmacy)1027 (MAY Hold - Provider: Admin Adt - Reason: Transfer to a Procedural area)1132 ([facility] Unhold - Provider: Admin Adt) 0642 (Given - Provider: Leyla Soto RN) 0828 (Given - Provider: Linda Jacob LPN) heparin (porcine) (5,000 units/1 mL) subcutaneous injection 5,000 Units 5,000 Units, Subcutaneous, EVERY 8 HOURS SCHEDULED, First dose on Wed07/24/22 at 2200, Until Discontinued, Routine 0611 (Given - Provider: Gerri Kat RN)1027 (MAY Hold - Provider: Admin Adt - Reason: Transfer to a Procedural area)1132 (MAY Unhold - Provider: Admin Adt)1313 (Given - Provider: Linda Jacob LPN)2132 (Given - Provider: Leyla Soto RN) 0604 (Given - Provider: Leyla Soto RN)1349 (Given - Provider: Linda Jacob LPN)2130 (Given - Provider: Leyla Soto RN) 0539 (Given - Provider: Leyla Soto RN) indomethacin (Indocin) suppository 100 mg (COMPLETED) 100 mg, Rectal, ONCE, 1 dose, On 07/25/22 at 1130, Endoscopy (Intra-Procedure), Routine 1130 (Given - Provider: Amanda Ann, FRANKIE) levothyroxine (Synthroid) tablet 50 mcg 50 mcg, Oral, EVERY MORNING, First dose on 07/25/22 at 0700, Until Discontinued, Routine 0611 (Given - Provider: Gerri Kat, FRANKIE)1027 (MAY Hold - Provider: Admin Adt - Reason: Transfer to a Procedural area)1132 (MAY Unhold - Provider: Admin Adt) 0605 (Given - Provider: Leyla Soto RN) 0539 (Given - Provider: Leyla Soto RN) lidocaine (Lidoderm) 5% patch 3 patch 3 patch, Transdermal, Administer over 12 Hours, EVERY 24 HOURS, First dose on 07/26/22 at 1800, Until Discontinued, Apply patch(es) for 12 hours, and then remove for 12 hours. Please apply to RLE and abdomen, Routine 1742 (Patch Applied - Provider: Linda Jacob LPN) 0542 (Patch Removed - Provider: Leyla Soto RN) magnesium sulfate 2 g in sterile water 50 mL infusion (COMPLETED) 2 g, Intravenous, ONCE, 1 dose, On 07/25/22 at 1015, Administer over 120 Minutes 1003 (New Bag - Provider: Phuong Bourne RN)1018 (Paused - Provider: Linda Jacob LPN - Comment: paused for procedure)1138 (Restarted - Provider: Phuong Bourne RN - Comment: Paused while in endo)1203 (Stopped - Provider: Linda Jacob LPN) magnesium sulfate 2 g in sterile water 50 mL infusion (COMPLETED) 2 g, Intravenous, ONCE, 1 dose, On 07/27/22 at 0645, Administer over 120 Minutes 0607 (New Bag - Provider: Leyla Soto RN)0807 (Stopped - Provider: Linda Jacob LPN) multivitamin with minerals (Thera M) tablet 1 tablet 1 tablet, Oral, DAILY, First dose on 07/25/22 at 0900, Until Discontinued, Routine 0900 (Given - Provider: Phuong Bourne RN)1027 (MAY Hold - Provider: Admin Adt - Reason: Transfer to a Procedural area)1132 (MAY Unhold - Provider: Admin Adt) 0852 (Given - Provider: Guillermo Maki Jr., RN) 0821 (Given - Provider: Linda Jacob LPN) pantoprazole EC (Protonix) tablet 40 mg 40 mg, Oral, DAILY, First dose on 07/25/22 at 0900, Until Discontinued, DO NOT CRUSH OR OPEN, Routine 0901 (Given - Provider: Phuong Bourne RN)1027 (MAY Hold - Provider: Admin Adt - Reason: Transfer to a Procedural area)1132 (MAY Unhold - Provider: Admin Adt) 0852 (Given - Provider: Guillermo Maki Jr., RN) 0821 (Given - Provider: Linda Jacob LPN) piperacillin-tazobactam (Zosyn) 3.375 g vial attach to sodium chloride 0.9% 50 mL Mini-Bag Plus 3.375 g, Intravenous, EVERY 8 HOURS, First dose on Wed07/24/22 at 2115, Until Discontinued, Administer over 4 Hours, Warning Vesicant/Irritant Medication Do not administer or Y-site with lactated ringers., Indication for (Active or Suspected): GI/Intra-abdominal 0058 (Stopped - Provider: Gerri Kat RN)0415 (Canceled Entry - Provider: Gerri Kat RN - Reason: See comment)0416 (New Bag - Provider: Gerri Kat RN)0816 (Stopped - Provider: Phuong Bourne RN)1027 (MAY Hold - Provider: Admin Adt - Reason: Transfer to a Procedural area)1132 (MAY Unhold - Provider: Admin Adt)1344 (New Bag - Provider: Linda Jacob LPN)1744 (Stopped - Provider: Linda Jacob LPN)2050 (New Bag - Provider: Leyla Soto RN) 0050 (Stopped - Provider: Leyla Soto RN)0604 (New Bag - Provider: Leyla Soto RN)1004 (Stopped - Provider: Guillermo Maki Jr., RN)1347 (New Bag - Provider: Linda Jacob LPN)1747 (Stopped - Provider: Linda Jacob LPN)2024 (New Bag - Provider: Leyla Soto RN) 0024 (Stopped - Provider: Leyla Soto RN)0540 (New Bag - Provider: Leyla Soto RN)0940 (Stopped - Provider: Guillermo Maki Jr., RN) polyethylene glycoL (Miralax) packet 17 g 17 g, Oral, DAILY, First dose on Wed07/25/22 at 0900, Until Discontinued, Routine 0900 (Not Given - Provider: Phuong Bourne RN - Reason: Patient/family refused)1027 (MAR Hold - Provider: Admin Adt - Reason: Transfer to a Procedural area)1132 (MAR Unhold - Provider: Admin Adt) 0853 (Given - Provider: Guillermo Maki Jr., RN) 0820 (Given - Provider: Linda Jacob LPN) potassium chloride ER (Klor-Con M) crystal tablet 40 mEq (COMPLETED)(Linked Group 1) 40 mEq, Oral, ONCE, 1 dose, On Wed07/26/22 at 0645, Potassium chloride ER tablet preferred; may give liquid if unable to swallow ER tablet. potassium chloride ER particle/crystal tablets (Klor-Con M) may be broken in half and each half swallowed separately. Tablets can be dissolved in ~4 ounces of water; allow ~2 minutes to dissolve, stir well and drink immediately. Do not crush, chew, or suck on tablet., Routine 0604 (Given - Provider: Leyla Soto RN) senna-docusate (Pericolace) 8.6-50 mg per tablet 2 tablet 2 tablet, Oral, 2 TIMES DAILY, First dose on Wed07/24/22 at 2115, Until Discontinued, Routine 0900 (Not Given - Provider: Phuong Bourne RN - Reason: Patient/family refused)1027 (MAR Hold - Provider: Admin Adt - Reason: Transfer to a Procedural area)1132 (MAR Unhold - Provider: Admin Adt)2100 (Not Given - Provider: Leyla Soto RN - Reason: Patient/family refused) 08 (Given - Provider: Guillermo Maki Jr., FRANKIE)2008 (Given - Provider: Leyla Soto RN) 820 (Given - Provider: Linda Jacob LPN) sodium chloride 0.9 % (flush) (BD PosiFlush Normal Saline 0.9) flush 5 mL 5 mL, Intravenous, 2 TIMES DAILY, First dose on Wed07/24/22 at 2115, Until Discontinued, Recovery (Recovery-Hospital Unit), Routine 09 (Given - Provider: Phuong Bourne RN)2044 (Given - Provider: Leyla Soto RN) 851 (Given - Provider: Guillermo Maki Jr., RN)2008 (Given - Provider: Leyla Soto RN) 822 (Not Given - Provider: Linda Jacob LPN - Reason: See comment - Comment: currently infusing see MAR) traZODone (Desyrel) tablet 50 mg 50 mg, Oral, NIGHTLY, First dose on Wed07/24/22 at 2315, Until Discontinued, Routine 1027 (MAY Hold - Provider: Admin Adt - Reason: Transfer to a Procedural area)113 (MAY Unhold - Provider: Admin Adt)2044 (Given - Provider: Leyla Soto RN) 2008 (Given - Provider: Leyla Soto RN) PRN Medication Order 07/25/2022 07/26/2022 07/27/2022 albuteroL (Proventil, Ventolin) (2.5 mg/3 mL) (0.083 %) nebulizer solution 2.5 mg 2.5 mg, Nebulization, EVERY 4 HOURS PRN, Starting on Wed07/24/22 at 2028, Until Wed07/27/22 at 1453, Wheezing, Routine 0412 (Given - Provider: Gerri Kat RN)102 (MAY Hold - Provider: Admin Adt - Reason: Transfer to a Procedural area)1132 (MAY Unhold - Provider: Admin Adt)2131 (Given - Provider: Leyla Soto RN) lidocaine (Xylocaine) 1% (10 mg/mL) injection 3 mg 3 mg (0.3 mL), Subcutaneous, ONCE PRN, 1 dose, Starting on Wed07/24/22 at 2027, Until 07/27/22 at 1453, for discomfort with PIV insertion, Recovery (Recovery-Hospital Unit), Routine oxyCODONE (Roxicodone) tablet 5 mg 5 mg, Oral, EVERY 4 HOURS PRN, Starting on 07/25/22 at 0836, Until 07/27/22 at 1453, Pain, pain not relieved by tylenol, Routine 0901 (Given - Provider: Phuong Bourne RN)1027 (MAY Hold - Provider: Admin Adt - Reason: Transfer to a Procedural area)1132 (MAY Unhold - Provider: Admin Adt)1552 (Given - Provider: Phuong Bourne RN)2132 (Given - Provider: Leyla Soto RN) 1529 (Given - Provider: Linda Jacob LPN) sodium chloride 0.9 % (flush) (BD PosiFlush Normal Saline 0.9) flush 5-20 mL 5-20 mL, Intravenous, EVERY 1 MIN PRN, Starting on Wed07/24/22 at 2028, Until 07/27/22 at 1453, flush, Flush pertains to all indwelling lines. Flush per protocol found in the job aid using the link provided on this medication record., Recovery (Recovery-Hospital Unit), Routine Linked Groups Order Group 1: potassium chloride ER (Klor-Con M) crystal tablet 40 mEq (COMPLETED)Jump to med 40 mEq, Oral, ONCE, 1 dose, On 07/26/22 at 0645, Potassium chloride ER tablet preferred; may give liquid if unable to swallow ER tablet. potassium chloride ER particle/crystal tablets (Klor-Con M) may be broken in half and each half swallowed separately. Tablets can be dissolved in ~4 ounces of water; allow ~2 minutes to dissolve, stir well and drink immediately. Do not crush, chew, or suck on tablet., Routine Or potassium bicarbonate (Effer-K) effervescent tablet 40 mEq (COMPLETED) 40 mEq, Oral, ONCE, 1 dose, On 07/26/22 at 0645, Potassium chloride ER tablet preferred; may give liquid if unable to swallow ER tablet. Do not crush or chew, tablet is meant for dissolution in liquid prior to consumption. 10 mEq tablets: dissolve in 60 - 90 mL of cold water (flavored tablets) or juice (unflavored tablets) 20 mEq tablets: dissolve in 90 - 120 mL of cold water (flavored tablets) or juice (unflavored tablets), Routine documented in this encounter Care Teams Market Basket Maker Relationship Specialty Start Date End Date Nya Hernandez APRN [address] [place] [id number] PCP - General Family Medicine 05/07/21 documented as of this encounter
--- OUTSIDE RECORDS SUMMARY | 2023-12-28 16:18 | XMS_ITS | Encounter Summary ---
Author Organization [facility] [place] [address] Care Team Providers Care Machine Setter Automatic Name Role Phone Nya Hernandez SERGIO Primary Care Provider +1- [phone] Encounter Details Date Type Department Care Team (Late st Contact Info) Description 07/24/2022 12:45 PM EDT Ancillary Procedure Radiology Library at [facility] [place] [address] Nakul Vega MD [facility] [place] [address] Social History Tobacco Use Types Packs/Day Years Used Date Smoking Tobacco: Former Cigarettes 1 40 0 10/07/1981 - 10/07/2021 Smokeless Tobacco: Never Comments:never vape Alcohol Use Standard Drinks/Week Comments Not Currently 0 (1 standard drink = 0.6 oz pur e alcohol) none since 06/2020 [facility] Inpatient Questions Answer Date Recorded Does Anyone [...] Procedure Name Priority Date/Time Associated Diagnosis Comments FILM LIBRARY STORAGE ONLY DX CHEST Routine 07/24/2022 12:40 PM EDT documented in this encounter Results * Film Library- Storage Only DX Chest (07/24/2022 12:40 PM EDT) Narrative [facility] - 07/24/2022 12:40 PM EDT This exam is auto-finalizing. It's purpose is for storage only. Nakul Vega MD IMG FILM LIBRARY OR DERABLES Performing Organization Address City/State/[facility] Co de Phone Number [place], [place] documented in this encounter Visit Diagnoses Not on filedocumented in this encounter Care Teams Machine Setter Automatic Relationship Specialty Start Date End Date Nya Hernandez APRN [address] [place] [id number] PCP - General Family Medicine 05/07/21 documented as of this encounter
--- OUTSIDE RECORDS SUMMARY | 2023-12-28 16:18 | XMS_ITS | Clinical Summary ---
Author Organization [facility] Address [facility] [place] [address] Care Team Providers Care Tooling Engineer Name Role Phone Nya Hernandez SERGIO Primary Care Provider +1- [phone] Allergies Active Allergy Reactions Criticality Noted Date Comments Doxycycline Rash 05/11/2020 RADHA- unknown Sulfa (Sulfonamide Antibiotics) Rash 05/11/2020 RADHA- unknown Hydrocodone-Acetaminophen Other (See Comments) 05/11/2020 [facility]- unknown Medications Medication Sig Dispensed Refills Start Date End Date Status traZODone (Desyrel) 50 mg Tablet Take 0.5 tablets by mouth nightly. 90 tablet 3 06/27/2020 Active Additional Information Patient taking differently: 50 mgOral NIGHTLY, Reported on 06/01/2021 levothyroxine (Synthroid) 50 mcg Tablet Take 1 tablet by mouth every morning. 90 tablet 3 06/28/2020 Active multivitamin with minerals (THERA-M) 9 mg iron-400 mcg Tablet Take 1 tablet by mouth daily. 06/28/2020 Active albuteroL 90 mcg/actuation HFA Aerosol Inhaler INHALE TWO PUFFS BY MOUTH EVERY 4 TO 6 HOURS NEEDED FOR COUGH 04/08/2020 Active Eliquis 5 mg Tablet TAKE ONE TABLET BY MOUTH TWICE A DAY 11/09/2020 Active furosemide (Lasix) 20 mg Tablet daily. 11/08/2020 Active losartan (Cozaar) 50 mg Tablet Take 50 mg by mouth daily. Active atorvastatin (Lipitor) 80 mg Tablet Take 1 tablet by mouth every evening. 90 tablet 3 06/03/2021 Active clopidogreL (Plavix) 75 mg Tablet Take 1 tablet by mouth daily. 90 tablet 3 06/04/2021 Active pantoprazole EC (Protonix) 40 mg Tablet, Delayed Release (E.C.) Take 1 tablet by mouth daily. Take one tablet by mouth daily for one month. Then you can stop. 30 tablet 06/04/2021 Active gabapentin (Neurontin) 300 mg Capsule Take 1 capsule by mouth Daily at Noon. 90 capsule 12 06/03/2021 Active Trelegy Ellipta 100-62.5-25 mcg Inhale 1 puff into the lungs daily. 12/07/2021 Active polyethylene glycoL (Miralax) 17 gram/dose Powder Take 17 g by mouth daily. 06/05/2022 Active docusate sodium (Colace) 100 mg capsule Take 1 capsule by mouth 2 times daily as needed for Constipation. 06/05/2022 Active polyethylene glycoL (Miralax) 17 gram oral powder packet Take 17 g by mouth daily. 14 each 06/06/2022 Active methocarbamoL (Robaxin) 500 mg tabletIndications: Muscle spasm Take 1 tablet by mouth 4 times daily as needed. 20 tablet 06/29/2022 Active Active Problems Patient Care Coordination No te Formatting of this note migh t be different from the original. 06/06: Home O2 to be delivered today. See RN CM note. 06/01-06/05 Admitted [facility] hernia repair. AMA d/c 06/05 unable to wait for home O2 transport tank delivery. [facility] (Resp Supplies) Hx: COPD, PAD s/p right AKA, hypertension, CAD s/p PCI (05/2021), a fib, perforated duodenal ulcer in 2020 s/p multiple ex-laps and Shari-en-Y duodenojejunostomy, hernia repair Problem Noted Date Diagnosed Date Acute cholecystitis 07/24/2022 Ventral hernia 06/01/2022 CAD (coronary artery disease) 07/29/2021 COPD (chronic obstructive pulmonary disease) HTN (hypertension) 07/29/2021 Hypothyroid 07/29/2021 PAD (peripheral artery disease) 07/29/2021 NSTEMI (non-ST elevated myocardial infarction) 0 06/01/2021 Perforated viscus 05/10/2020 Social History Tobacco Use Types Packs/Day Years Used Date Smoking Tobacco: Former Cigarettes 1 40 0 10/07/1981 - 10/07/2021 Smokeless Tobacco: Never Tobacco Cessation:Counseling Given: Not Answered Comments:never vape Alcohol Use Standard Drinks/Week Comments [...] on file Sexual Orientation Not on file Last Filed Vital Signs Vital Sign Reading Time Taken Comments Blood Pressure 144/69 07/27/2022 7:14 AM EDT Pulse 82 06/15/2022 10:44 AM EDT Temperature 36.8 ??C (98.2 ??F) 07/27/2022 7:14 AM ED T Respiratory Rate 16 07/27/2022 7:14 AM EDT Oxygen Saturation 91% 07/27/2022 7:14 AM EDT Inhaled Oxygen Concentration - - Weight 90.7 kg (200 lb) 06/01/2022 6:23 AM EDT Height 160 cm (5' 3) 06/01/2022 6:23 AM EDT Body Mass Index 35.43 06/01/2022 6:23 AM EDT Plan of Treatment Health Maintenance Due Date Last Done Comments CT Colonography 1963 Colonoscopy 1963 Colorectal Cancer Screening 1963 FIT DNA 1963 FIT 1963 Sigmoidoscopy (10 year) with FIT yearly 1963 Sigmoidoscopy 1963 Pneumococcal Vaccine: At-Ris k 5-64yrs (1 of 2 - PCV) 1969 HIV screen 1981 Hepatitis C Screening 1981 Tetanus/Diphtheria/Pertussis Vaccines (1 - Tdap) 1982 HPV test 1993 PAP Smear 1993 Breast Cancer Share Decision Needed 2003 Breast Cancer screening 2003 Zoster vaccine (1 of 2) 2013 Covid-19 Vaccine ( - 2022-2 4 season) 2023 Influenza (Flu) vaccine (1 o f 1 - Influenza standard series) 11/07/2023 Diabetes Screening (HgbA1C o r Glucose) 07/27/2025 07/27/2022, 07/26/2022, 07/25/2022, Additional history exists Lipid Screening Discontinued 06/02/2021 Medical Devices Implanted Type Area Planimeter Operator Device Identifier Shelf Expiration Date Model / Serial / Lot Mesh Hernia [id number] Synthetic Patch Pp Soft Mesh ([id number]) ([employer]) - [id number] Implanted:Qty : 1 on 06/01/2022 by Whit Nance MD at [facility] IMPLANTS N/A: Abdomen CR [employer]ARD INC - CR BARD 09/02/2026 [id number] / / [id number] Procedures Procedure Name Priority Date/Time Associated Diagnosis Comments COMPREHENSIVE METABOLIC PANEL Routine 07/27/2022 3:47 AM EDT HC CHOLESTEROL Routine 06/02/2021 3:14 AM EDT from Last 3 Months or Most Recently Relevant to Health Maintenance Results * (ABNORMAL) Comprehensive metabolic panel (non-fasting) (07/27/2022 3:47 AM EDT) Glucose 116 65 - 199 mg/dL [facility] Comment:Diabetes: >=200 mg/d L plus symptoms Blood Urea Nitrogen 19(H) 8 - 18 mg/dL [facility] Creatinine 0.66(L) 0.70 - 1.20 mg/dL [facility] Sodium 141 135 - 145 mmol/L [facility] Potassium 4.0 3.5 - 5.0 mmol/L [facility] Comment: Please note: ??Patients with WBC >100,000 may have falsely elevated Potassium levels. ??For accurate Potassium quantification in these patients send serum separator tube (gold top) for subsequent determinations. ??Contact the Clinical Chemistry Laboratory if there are any questions. Chloride 108(H) 98 - 107 mmol/L [facility] Carbon Dioxide 23 22 - 31 mmol/L [facility] Anion Gap 10 5 - 15 mmol/L [facility] Calcium 8.3(L) 8.5 - 10.5 mg/dL [facility] Protein, Total 5.5(L) 6.1 - 8.0 g/dL [facility] Albumin 3.0(L) 3.2 - 5.2 g/dL [facility] Aspartate Aminotransferase 51(H) 0 - 30 unit/L [facility] Alanine Aminotransferase 111(H) 0 - 30 unit/L [facility] Alkaline Phosphatase 248(H) 35 - 105 unit/L [facility] Bilirubin, Total 0.6 0.2 - 1.3 mg/dL [facility] Est Glomerular Filtration Rate 101 >=60 mL/min/1. 73 m?? [facility] Comment: This patient's estimated GFR was [...] In Lab Meme Torres MD CHEMISTRY ORDERABLES [facility] [place] [address] * HDL/Cholesterol Profile (06/02/2021 3:14 AM EDT) [facility] Cholesterol, Total 166 mg/dL [facility] Comment: Lower Risk: <200 mg/dL Average Risk: 200-239 mg/dL Higher Risk: >qm=079 mg/dL HDL Cholesterol 37 mg/dL [facility] Comment: Males: ?? Higher Risk: <40 mg/dL Females: ?? Higher Risk: <50 mg/dL Cholesterol/HDL Ratio 4.5 ratio [facility] Chol/HDL Interpretation See Note [facility] Comment: Lipid management should be guided by a patient? s ASCVD risk, goals and preferences. ACC/AHA Guidelines recommend high intensity statin if clinical ASCVD or LDL greater than or equal to 190 mg/dL. http://Badge.com/OYZ-WPX-Vqcqluofw Measure LDL if Total Cholesterol minus HDL Cholesterol is greater than 220 mg/dL. Adults aged 40-75 with LDL 70-189 mg/dL should have their 10 year ASCVD risk estimated with the ACC/AHA ASCVD risk auto job estimator http://tools.acc.org/EALUR-Yvaq-Kcpikhccf/ Statin should be discussed if risk greater than or equal to 7.5% in non-diabetics. With diabetes, moderate intensity statin is recommended if risk less than 7.5%, high intensity if risk greater than or equal to 7.5%. Annual lipid monitoring on statins is not necessary. Lifestyle modification is a critical component of ASCVD risk reduction. Blood 06/02/2021 3:14 AM EDT 06/02/2021 4:37 AM EDT Narrative Resulting Agency Comment Spec In Lab Gabriela Hassan APRN CHEMISTRY ORDERABLES [facility] [place] [address] from Last 3 Months or Most Recently Relevant to Health Maintenance Advance Directives Documents on File Type Date Recorded Patient Paving Machine Operator Expl anation Advance Directives and Lars murray Will 06/01/2022 3:18 PM 05/23/22 * Attempt Cardiopulmonary Resuscitation - Inpatient (Latest Code Status on File) Date Activated Date Inactivated Comments 07/24/2022 8:25 PM 07/27/2022 2:58 PM Question Answer Comments Code Status decision made by: Patient * Attempt Cardiopulmonary Resuscitation - Inpatient Date Activated Date Inactivated Comments 06/01/2022 3:15 PM 06/05/2022 5:53 PM Question Answer Comments Code Status decision made by: Patient * Attempt Cardiopulmonary Resuscitation - Inpatient Date Activated Date Inactivated Comments 06/01/2021 12:20 PM 06/03/2021 1:15 PM Question Answer Comments Code Status decision made by: Patient * Attempt Cardiopulmonary Resuscitation - Inpatient Date Activated Date Inactivated Comments 05/10/2020 11:37 PM 06/27/2020 3:22 PM Question Answer Comments Code Status decision made by: Patient Care Teams Tooling Engineer Relationship Specialty Start Date End Date Nya Hernandez, SERGIO [address] [place] [phone] PCP - General Family Medicine 05/07/21
--- OUTSIDE RECORDS SUMMARY | 2023-12-28 16:18 | XMS_ITS | Encounter Summary ---
[place] [address] Care Team Providers Care Central Office Installer Name Role Phone Nya Hernandez SERGIO Primary Care Provider +1- [phone] Encounter Details Date Type Department Care Team (Late st Contact Info) Description 06/22/2022 Orders [place] [address] Christine Wadsworth, RN Facial mass Social History Tobacco Use Types [...] on file documented as of this encounter Results * Request for 2nd [...] who have questions please contact the health critical care technician that requested your imaging first. ? Narrative 06/23/2022 2:43 PM EDT EXAMINATION: REQUEST FOR 2ND READ CT FACE CLINICAL HISTORY: Right buccal space mass.; Sending Institution [facility]; Date of exam 20220504; I [...] HISTORY: Right buccal space mass.; Sending Institution [facility]; Date of exam 20220504; I [...] patients who have questions please contactthe health critical care technician that requested your imaging first. Curt Feliz MD IMG OUTSIDE INTERP RETATION ORDERABLES documented in this encounter Visit Diagnoses Diagnosis Facial mass Facial mass documented in this encounter Care Teams Central Office Installer Relationship Specialty Start Date End Date EdisonvenuNya APRN [address] [place] [id number] PCP - General Family Medicine 05/07/21 documented as of this encounter
--- OUTSIDE RECORDS SUMMARY | 2023-12-28 16:18 | XMS_ITS | Encounter Summary ---
[place] [address] Care Team Providers Care Fish Egg Packer Name Role Phone Nya Hernandez SERGIO Primary Care Provider [phone] Reason for Visit * Auth/Cert (Routine) Specialty Diagnoses / Procedures Referred By Tomas early Referred To Contact Diagnoses Acute cholecystitis Acute cholecystitis Meme Torres MD [facility] [place] [address] [facility] Referral ID Status Reason Start Date Expiration Date Visits Re quested Visits Authorized [id number] 1 1 Encounter Details Date Type Department Care Team (Late st Contact Info) Description 07/25/2022 10:30 AM EDT Ancillary [place] [id number] Social History Tobacco Use Types Packs/Day Years Used Date Smoking Tobacco: Former Cigarettes 1 40 0 10/07/1981 - 10/07/2021 Smokeless Tobacco: Never Comments:never vape Alcohol Use Standard Drinks/Week Comments Not Currently 0 (1 standard drink = 0.6 oz pur e alcohol) none since 06/2020 [facility] Inpatient Questions Answer Date Recorded Does Anyone [...] Procedure Name Priority Date/Time Associated Diagnosis Comments XR ERCP Routine 07/25/2022 11:46 AM EDT documented in this encounter Results * XR ERCP (07/25/2022 11:46 AM EDT) Narrative [facility] - 07/25/2022 11:47 AM EDT See PACS for result report. Sunny Ventura MD IMG FILM LIBRARY OR DERABLES Performing Organization Address City/State/[facility] Co de Phone Number [place], [place] documented in this encounter Visit Diagnoses Not on filedocumented in this encounter Care Teams Fish Egg Packer Relationship Specialty Start Date End Date Nya Hernandez APRN [address] [place] [id number] PCP - General Family Medicine 05/07/21 documented as of this encounter
--- OUTSIDE RECORDS SUMMARY | 2023-12-28 16:18 | XMS_ITS | Encounter Summary ---
Author Organization [facility] [place] [address] Care Team Providers Care Electrical Unit Rebuilder Name Role Phone Nya Hernandez SERGIO Primary Care Provider [phone] Reason for Visit * Auth/Cert (Routine) Specialty Diagnoses / Procedures Referred By Tomas early Referred To Contact Diagnoses Acute cholecystitis Acute cholecystitis Meme Torres MD [facility] [place] [address] [facility] Referral ID Status Reason Start Date Expiration Date Visits Re quested Visits Authorized [id number] 1 1 Encounter Details Date Type Department Care Team (Latest Contact Info) Description 07/24/2022 7:47 PM EDT - 07/27/2022 12:53 PM EDT Hospital Encounter Surgical Unit Level 3 [place] [address] Roberta Vega MD [facility] [place] [address] Meme Torres MD [facility] [place] [address] Discharge Disposition: Home Social History Tobacco Use Types Packs/Day Years [...] Pressure 144/69 07/27/2022 7:14 AM EDT Pulse - - Temperature 36.8 ??C (98.2 ??F) 07/27/2022 7:14 [...] large incisional hernia 05/2022 who presents to [facility] as a transfer for acute cholecystitis. ?? [...] Pertinent Lab Data: Recent Labs 07/27/2234607/26/2222807/25/22 0400 07/24/222039 WBC 8.1 8.7 8.1 14.7* HGB 9.2* 9.9* 11.1* 11.9 HCT 30.3* 32.4* 35.2* 38.0 PLATELET 409* 380* 418* 468* PT -- -- -- 17.8* INR -- -- -- 1.6 PTT -- -- -- 34 Recent Labs 07/27/2234607/26/22 0939 07/26/2222807/25/22 0400 07/24/222039 NA 141 -- 141 141 140 K [...] puff into the lungs daily. Generic drug: xikzedwflox-gezfuugjkntu-tktkgpkfgn 1 puff Refills: 0 * This list [...] nowhere with concern for cholecystitis.; Sending Institution [facility]; Date of exam [id number]; I believe a reinterpretation of this exam may alter care of Patient. Yes TECHNIQUE: Helical CT of the abdomen and pelvis following the intravenous administration of contrast. 90 cc Omnipaque 350 intravenous contrast. Oral contrast was not administered. Study performed July 24, 2022 at [facility]. COMPARISON: March 17, 2022 FINDINGS: Lower [...] have questions please contact the health care coordinator that requested your imaging first. Electronically signed by: Rukhsana Vega MD, [facility] ([phone]),at 07/25/2022 6:38 AM Film Library- Storage Only [...] Center 09/07/2022 8:40 AM Curt Feliz MD [facility] Pain: - You may continue to take [...] 1. You will have follow-up appointments at [facility] as indicated in the ???Future Appointments and [...] on the next business day. Please call [phone] if you do not hear from us by that time, as your timely follow-up is very important to us. Your care was managed by the Trauma and Acute Care Surgery Team at [facility]. If you have any questions or concerns, please feel free to contact us. Provider Contact Information: General Surgery: [facility] (after business hours): Primary Care Physician: Nya Hernandez APRN General Instructions None Future Appointments and Orders Future Appointments and Orders Future Appointments Provider Department Dept Phone 08/20/2022 10:00 AM Crystal Coker APRN General Surgery at [facility] Arrive at: Commissioned [employer] Area 4L [phone] 09/07/2022 8:40 AM Curt Feliz MD Otolaryngology at [facility] Arrive at: Commission[employer] Area 4F [phone] Signed: Ricky Partida MD General Surgery [facility] pager [phone] Primary Hilaria Physician: Nya Hernandez APRN [address] / [facility] [id number] documented in this encounter Discharge Instructions * [...] Center 09/07/2022 8:40 AM Curt Feliz MD [facility] Pain: - You may continue to take [...] 1. You will have follow-up appointments at [facility] as indicated in the ???Future Appointments and [...] on the next business day. Please call [phone] if you do not hear from us by that time, as your timely follow-up is very important to us. Your care was managed by the Trauma and Acute Care Surgery Team at [facility]. If you have any questions or concerns, please feel free to contact us. Provider Contact Information: General Surgery: [facility] (after business hours): Primary Care Physician: Nya Hernandez APRN * Attachments The following attachments cannot be sent through Care Everywhere. * Acute Cholecystitis: General Info ([place]) * Gallstones ([place]) * Gallbladder Disease: Low-Fat Diet ([place]) documented in this encounter Medications at Time [...] this encounter Progress Notes * Guillermo Maki Jr., RN - 07/27/2022 12:47 PM EDT Patient discharged to home w/o services. Discharge paper work reviewed. IVs removed. All belongingsreturned. * iRcky Partida MD - 07/27/2022 9:52 AM EDT ID/MECHANISM OF INJURY: Eliza Moya is a 57 y.o. female S/pERCP for acute cholecystitis OR CASE INFORMATION: 07/25/2022 Procedure(s): ERCP W/REMOVAL CALCULI/DEBRIS FROM BILARY/PANCREATIC DUCT(S) (WRVU 6.63) ERCP W/SPHINCTEROTOMY/PAPILLOTOMY (WRVU 6.5) FOLLOW-UP NEEDED: Does pt need to f-u with surgeon or [facility] (please indicate reason if attending provider): [facility] How soon should ACS f/u be? 3-4 [...] Name: SERGIO Muñoz MD 07/27/2022 * Danna Keen MD - 07/27/2022 6:32 AM EDT GASTROENTEROLOGY & HEPATOLOGY INPATIENT PROGRESS NOTE ID: 57yo M w/ PMH of COPD, PAD s/p right AKA, HTN, CAD s/p PCI (05/2021), Afib, perforated duodenalulcer in 2020 s/p multiple ex-laps and Donavan-en-Y duodenojejunostomy, and s/p??recent extensive??repair of large??incisional hernia 05/2022??who presented to [facility] w/ c/f acute cholecystitis. We are cons [...] polyethylene glycoL 17 g Oral Daily ??? nizmxnjirxj-lqemgrppnmrr-jehzahrqkv 1 puff Inhalation Daily ??? sodium chloride [...] Position: Sitting Lying Lying Lying Resp: 18 17 18 16 Temp: 36.8 ??C (98.2 ??F) [...] extensive??repair of large??incisional hernia 05/2022??who presented to [facility] w/ c/f acute cholecystitis. We are consulte [...] M.D. Fellow in Gastroenterology and Hepatology Pager #[phone] 07/27/2022 Associated attestation - Pa Moyer MD - 07/27/2022 11:29 AM EDT ATTENDING ATTESTATION: I have seen, examined, and discussed the patient with the GI fellow Dr. Keen and I agree with thefindings, assessment, and plan as written. Pa Moyer MD, CP Attending Staff Section of Gastroenterology and Hepatology Pager [phone] * Leyla Soto RN - 07/27/2022 5:20 [...] per unit protocol Surveillance [continuous indirect monitoring]: [place], Patient Safety Rounding * Meme Torres MD [...] large incisional hernia 05/2022 who presents to [facility] asa transfer for acute cholecystitis. Procedures: Procedure(s): [...] Alert and follows commands. Labs: Recent Labs 07/26/2222807/25/22 0400 07/24/222039 WBC 8.7 8.1 14.7* HGB [...] MD, PGY1 Acute Care Surgery Team pager [phone] Attending Addendum I have seen and examined [...] unit protocol ?? Surveillance [continuous indirect monitoring]: [place], Patient Safety Rounding ?? * Sunny Ventura [...] extensive??repair of large??incisional hernia 05/2022??who presented to [facility] w/ c/f acute cholecystitis. We are consulte [...] DRAINAGE 05/27/2020 CT Guided Drain Peritoneal 05/27/2020 [facility] RAD CAT SCAN ??? CT PERITONEAL DRAINAGE 05/27/2020 CT Guided Drain Peritoneal 05/27/2020 [facility] RAD CAT SCAN ??? CT PERITONEAL DRAINAGE 05/27/2020 CT Guided Drain Peritoneal 05/27/2020 [facility] RAD CAT SCAN ??? IR CHEST TUBE PLACEMENT BILATERAL 05/15/2020 IR Chest Tube Placement Bilateral 05/15/2020 Ricky Hollis MD [facility] INTERVENTIONL RAD ??? PRO AMPUTATE THIGH, OPEN CIRCULAR Right 05/11/2020 AMPUTATION, ABOVE-KNEE, OPEN, GUILLOTINE (WRVU 10.98) performed by Christine Montgomery MD at [facility] MAIN OR ??? PRO AMPUTATE THIGH, SECONDRY CLOSUR Right 06/13/2020 AMPUTATION, ABOVE-KNEE, SECONDARY CLOSURE OR SCAR REVISION (WRVU 7.29) performed by Christine Montgomery MD at [facility] MAIN OR ??? PRO CHOLECYSTOENTER+DONAVAN-EN-Y+GASTROENT N/A 05/12/2020 @DONAVAN-EN-Y WITH GASTROENTEROSTOMY (WRVU 24.21) performed by Meme Torres MD at [facility] OR ??? PRO EXPLORATION OF ABDOMEN N/A 05/11/2020 @EXPLORATORY LAPAROTOMY, WITH/WITHOUT BIOPSY(S) (WRVU 12.54) performed by Meme Torres MD at [facility] OR ??? PRO GASTROJEJUNOSTOMY N/A 05/12/2020 @GASTROJEJUNOSTOMY (WRVU 22.53) performed by Meme Torres MD at [facility] OR ??? PRO MUSCLE-SKIN FLAP, TRUNK N/A 06/01/2022 FLAP, MYOCUTANEOUS OR FASCIOCUTANEOUS, TRUNK (WRVU 23) performed by Whit Nance MD at [facility] OR ??? PRO REOPEN RECENT ABD EXPLORATORY N/A 05/12/2020 @EXPLORATORY LAPAROTOMY, REOPENING OF RECENT (WRVU 17.63) performed by Meme Torres MD at [facility] OR ??? PRO REOPEN RECENT ABD EXPLORATORY Midline 05/16/2020 @EXPLORATORY LAPAROTOMY, REOPENING OF RECENT (WRVU 17.63) performed by Roberta Vega MD at [facility] OR ??? PRO REOPEN RECENT ABD EXPLORATORY Midline 05/18/2020 @EXPLORATORY LAPAROTOMY, REOPENING OF RECENT (WRVU 17.63) performed by Marco Silver MD at [facility] OR ? ? PRO REPAIR AA HERNIA INITIAL > 10 CM REDUCIBLE N/A 06/01/2022 REPAIR ANT. ABDOMINAL HERNIA(S) (IE, EPIGASTRIC, INCISIONAL, VENTRAL, UMBILICAL, SPIGELIAN), INITIAL, W-WO MESH; GREATER THAN 10 CM, REDUCIBLE (WRVU 13.94) performed by Whit Nance MD at [facility] OR ??? PRO REPAIR PERF DUOD/JIMENA ULC-WND/INJ N/A 05/11/2020 GASTRORRHAPHY, SUTURE OF PERFORATED, ULCER, WOUND, INJURY (WRVU 22.83) performed by Meme Torres MD at [facility] OR ??? PRO RESECT SMALL INTEST, SINGL RESEC/ANAS N/A 05/12/2020 @BOWEL RESECTION, SMALL INTESTINE SINGLE ANASTOMOSIS (WRVU 20.82) performed by Meme Torres MD at [facility] MAIN OR ??? PRO SUTURE ABD WALL-DEHIS/EVISCER Midline 05/20/2020 @SUTURE, SECONDARY, OF ABD WALL FOR EVISCERATION OR DEHISCENCE (WRVU 12.41) performed by Phuong Akbar MD at [facility] MAIN OR ? ? PRO UNLISTED PX ABD PRTM&OMENTUM N/A 05/20/2020 SUTURE OMENTUM (WRVU 11.1) performed by Phuong Akbar MD at [facility] MAIN OR ??? PRO UNLISTED PX ABDOMEN MUSCULOSKELETAL SYSTEM Midline 05/16/2020 WOUND CLOSURE, ABDOMINAL, PARTIAL W/ WOUND VAC (WRVU 6.39) performed by Roberta Vega MD at [facility] MAIN OR ??? PRO UPPER GI ENDOSCOPY, BIOPSY N/A 11/25/2020 EGD WITH BIOPSY (WRVU 2.49) performed by Kervin Rubio MD at [facility] ENDOSCOPY SOCIAL HX: Social History Socioeconomic [...] polyethylene glycoL 17 g Oral Daily ??? hycvoduxbxt-rsxrrpfboqlc-chhaqksmqm 1 puff Inhalation Daily ??? sodium chloride [...] Resp: [17-22] SpO2 SpO2: [93 %-98 %] 07/25 0701 - 07/26 0700 [...] CBC: Recent Labs 07/26/22 0229 07/25/22 0400 07/24/22 2040 WBC 8.7 8.1 14.7* HGB 9.9* 11.1* 11.9 PLATELET 380* 418* 468* MCV 85.7 84.6 83.2 RDWCV 14.4* 14.5* 14.6* COAG: Recent Labs 07/24/222039 PTT 34 INR 1.6 PT 17.8* CHEM: Recent Labs 07/26/2222807/25/2239907/24/222039 CREATININE 0.67* 0.71 0.71 BUN 13 11 12 NA 141 141 140 K 3.5 3.9 3.8 CL 107 106 105 CO2 27 28 27 MAGNESIUM 0.90 0.80 -- CALCIUM 7.8* 8.4* 8.5 HEPATIC: Recent Labs 07/26/2222807/25/2239907/24/222039 BILITOT 1.3 2.2* 1.9* ALKPHOS 225* 226* [...] have questions please contact the health care coordinator that requested your imaging first. SCOPY: Reports and images personally reviewed in eDH EGD 11/2020: Impression: ?- Normal esophagus. ?- Z-line regular, 40 cm from the ?incisors. ?- Normal stomach. Biopsied. ?- Normal examined [place] duodenum. ?S/p duodenojejunostomy, normal ?anastomosis, no inflammation [...] extensive??repair of large??incisional hernia 05/2022??who presented to [facility] w/ c/f acute cholecystitis. We are consulte [...] per unit protocol Surveillance [continuous indirect monitoring]: [place], Patient Safety Rounding * Phuong Bourne RN [...] large incisional hernia 05/2022 who presents to [facility] asa transfer for acute cholecystitis. Procedures: Procedure(s): [...] 96 % SpO2: [92 %-97 %] 07/24 0701 - [...] Alert and follows commands. Labs: Recent Labs 07/25/22 0400 07/24/22 2040 WBC 8.1 14.7* HGB 11.1* 11.9 HCT 35.2* 38.0 PLATELET 418* 468* PT -- 17.8* INR -- 1.6 PTT -- 34 Recent Labs 07/25/22 0400 07/24/22 2040 NA 141 140 K 3.9 3.8 CL [...] her abdomen surgical management would be complex. Eliza understands that and agrees with avoiding surgery if possible. As such, floydve consulted our gastroenterology colleagues for ERCP. Her [...] MD, PGY1 Acute Care Surgery Team pager [phone] Attending Addendum I have seen and examined [...] antibiotics. Meme Torres MD [phone] * Gerri Kat RN - 07/25/2022 12:54 AM EDT OUTCOME EVALUATION NOTE: OUTCOME SUMMARY: Patient A&Ox4, VSS on 2L NC (baseline at home per patient). Denies nausea/vomiting, CP, SOB. Pain controlled w/ scheduled and PRN medications, see MAY. Patient voiding to purewick. LBM 07/24 AM TRAUMA THERAPIST per patient. NPO since midnight. Patient resting [...] or tingling. Endorses RUQ discomfort/tenderness. Patient connected [facility] miguel, paged for orders. Patient oriented to room, [...] large incisional hernia 05/2022 who presents to [facility] asa transfer for acute cholecystitis. She began [...] MD, PGY1 Acute Care Surgery Team pager [phone] Attending Addendum I have seen and examined [...] transversus abdominus release with retrorectus placement of [id number] mesh on 06/01/22, now presenting with upper [...] None Resp Needs: Home O2 *SERENE Company: [employer] [facility] [employer] Agency Referrals & Follow-up Care: [...] are in agreement with plan. VICTOR M Grimes,outdoor studies director Team Case Management Pager #[phone] * Initial Assessments - Jackie French RN [...] COVID test: Lab Results Component Value Date [id number] Not Detected 06/01/2021 Past medical History: Past [...] Home Address confirmed as: [address] [address] Social & Family Supports: All names listed below confirmed with patient as current and correct Extended Emergency Contact Information Primary Emergency Contact: Denise Moya Address: [address] [place] [address] [facility] Relation: Son/Wtozrikg-ll-gwj Secondary Emergency Contact: Twin Moya Address: [address] [place] [address] [place] Relation: Child Current Care Provided by: [...] Yes ; Prescription Coverage: Yes Preferred Pharmacy: [id number] - [place], [place] - [address] [facility] [address] Status: Patient is a : No Primary Care Provider confirmed: Nya Hernandez, SERGIO [phone] Patient/Caregiver Goals of Treatment: to discharge home with family supports in place Potential Needs for Transition of Care: none anticipated at this time Agency Referrals: Family agrees to resumption of care referrals to: [facility] (Resp Supplies) Note routed to a [employer] Staff who will communicate referrals to facilities and provide any required information. Transportation: family to provide Concerns to be Addressed: none Assessment: Patient is admitted to acute care service for acute cholecystitis. Patient lives with her adult children (Son/DIL). I called and spoke to patient's daughter (Denise-AIDEN) to obtain all the information for this [...] transition of care planning. Jackie French RN, Pager-[phone] * Consult Note - Sunny Ventura MD [...] extensive??repair of large??incisional hernia 05/2022??who presented to [facility] w/ c/f acute cholecystitis. We are consulte [...] DRAINAGE 05/27/2020 CT Guided Drain Peritoneal 05/27/2020 [facility] RAD CAT SCAN ??? CT PERITONEAL DRAINAGE 05/27/2020 CT Guided Drain Peritoneal 05/27/2020 [facility] RAD CAT SCAN ??? CT PERITONEAL DRAINAGE 05/27/2020 CT Guided Drain Peritoneal 05/27/2020 [facility] RAD CAT SCAN ??? IR CHEST TUBE PLACEMENT BILATERAL 05/15/2020 IR Chest Tube Placement Bilateral 05/15/2020 Ricky Hollis MD [facility] INTERVENTIONL RAD ??? PRO AMPUTATE THIGH, OPEN CIRCULAR Right 05/11/2020 AMPUTATION, ABOVE-KNEE, OPEN, GUILLOTINE (WRVU 10.98) performed by Christine Montgomery MD at [facility] OR ??? PRO AMPUTATE THIGH, SECONDRY CLOSUR Right 06/13/2020 AMPUTATION, ABOVE-KNEE, SECONDARY CLOSURE OR SCAR REVISION (WRVU 7.29) performed by Christine Montgomery MD at [facility] OR ??? PRO CHOLECYSTOENTER+DONAVAN-EN-Y+GASTROENT N/A 05/12/2020 @DONAVAN-EN-Y WITH GASTROENTEROSTOMY (WRVU 24.21) performed by Meme Torres MD at [facility] OR ??? PRO EXPLORATION OF ABDOMEN N/A 05/11/2020 @EXPLORATORY LAPAROTOMY, WITH/WITHOUT BIOPSY(S) (WRVU 12.54) performed by Meme Torres MD at [facility] MAIN OR ??? PRO GASTROJEJUNOSTOMY N/A 05/12/2020 @GASTROJEJUNOSTOMY (WRVU 22.53) performed by Meme Torres MD at [facility] OR ??? PRO MUSCLE-SKIN FLAP, TRUNK N/A 06/01/2022 FLAP, MYOCUTANEOUS OR FASCIOCUTANEOUS, TRUNK (WRVU 23) performed by Whit Nance MD at [facility] OR ??? PRO REOPEN RECENT ABD EXPLORATORY N/A 05/12/2020 @EXPLORATORY LAPAROTOMY, REOPENING OF RECENT (WRVU 17.63) performed by Meme Torres MD at [facility] OR ??? PRO REOPEN RECENT ABD EXPLORATORY Midline 05/16/2020 @EXPLORATORY LAPAROTOMY, REOPENING OF RECENT (WRVU 17.63) performed by Roberta Vega MD at [facility] OR ??? PRO REOPEN RECENT ABD EXPLORATORY Midline 05/18/2020 @EXPLORATORY LAPAROTOMY, REOPENING OF RECENT (WRVU 17.63) performed by Marco Silver MD at [facility] OR ? ? PRO REPAIR AA HERNIA INITIAL > 10 CM REDUCIBLE N/A 06/01/2022 REPAIR ANT. ABDOMINAL HERNIA(S) (IE, EPIGASTRIC, INCISIONAL, VENTRAL, UMBILICAL, SPIGELIAN), INITIAL, W-WO MESH; GREATER THAN 10 CM, REDUCIBLE (WRVU 13.94) performed by Whit Nance MD at [facility] OR ??? PRO REPAIR PERF DUOD/JIMENA ULC-WND/INJ N/A 05/11/2020 GASTRORRHAPHY, SUTURE OF PERFORATED, ULCER, WOUND, INJURY (WRVU 22.83) performed by Meme Torres MD at [facility] OR ??? PRO RESECT SMALL INTEST, SINGL RESEC/ANAS N/A 05/12/2020 @BOWEL RESECTION, SMALL INTESTINE SINGLE ANASTOMOSIS (WRVU 20.82) performed by Meme Torres MD at [facility] OR ??? PRO SUTURE ABD WALL-DEHIS/EVISCER Midline 05/20/2020 @SUTURE, SECONDARY, OF ABD WALL FOR EVISCERATION OR DEHISCENCE (WRVU 12.41) performed by Phuong Akbar MD at [facility] MAIN OR ? ? PRO UNLISTED PX ABD PRTM&OMENTUM N/A 05/20/2020 SUTURE OMENTUM (WRVU 11.1) performed by Phuong Akbar MD at [facility] MAIN OR ??? PRO UNLISTED PX ABDOMEN MUSCULOSKELETAL SYSTEM Midline 05/16/2020 WOUND CLOSURE, ABDOMINAL, PARTIAL W/ WOUND VAC (WRVU 6.39) performed by Roberta Vega MD at [facility] MAIN OR ??? PRO UPPER GI ENDOSCOPY, BIOPSY N/A 11/25/2020 EGD WITH BIOPSY (WRVU 2.49) performed by Kervin Rubio MD at [facility] ENDOSCOPY SOCIAL HX: Social History Socioeconomic [...] 17 g Oral Daily ??? [MAR Hold] grcrohxwvuf-nkdqxnaltiji-cuexclbeou 1 puff Inhalation Daily ??? sodium chloride 0.9 % (flush) 5 mL Intravenous BID ??? [MAY Hold] senna-docusate 2 tablet Oral BID ??? [MAY Hold] heparin (porcine) 5,000 Units Subcutaneous Q8H LEMUEL ??? [MAY Hold] piperacillin-tazobactam 3.375 g Intravenous Q8H ??? [MAY Hold] traZODone 50 mg Oral Nightly ??? [MAY [...] personally reviewed in eDH CBC: Recent Labs 07/25/22 0400 07/24/222039 WBC 8.1 14.7* HGB 11.1* 11.9 PLATELET 418* 468* MCV 84.6 83.2 RDWCV 14.5* 14.6* COAG: Recent Labs 07/24/222039 PTT 34 INR 1.6 PT 17.8* CHEM: Recent Labs 07/25/22 0400 07/24/222039 CREATININE 0.71 0.71 BUN 11 12 NA 141 140 K 3.9 3.8 CL 106 105 CO2 28 27 MAGNESIUM 0.80 -- CALCIUM 8.4* 8.5 HEPATIC: Recent Labs 07/25/22 0400 07/24/222039 BILITOT 2.2* 1.9* ALKPHOS 226* 255* AST [...] have questions please contact the health care coordinator that requested your imaging first. ERCP (Results Pending) ENDOSCOPY: Reports and images personally reviewed in e[facility] EGD 11/2020: Impression: ?- Normal esophagus. ?- Z-line regular, 40 cm from the ?incisors. ?- Normal stomach. Biopsied. ?- Normal examined [place] duodenum. ?S/p duodenojejunostomy, normal ?anastomosis, no inflammation [...] extensive??repair of large??incisional hernia 05/2022??who presented to [facility] w/ c/f acute cholecystitis. We are consulte [...] Routine 07/25/2022 11:46 AM EDT Ercp, Sphincterotomy (85369) 07/25/2022 10:22 AM EDT Calculus of bile duct with acute cholangitis with obstruction Ercp, W/Removal Stone, Anselmo/Pancr Ducts ([id number]) 07/25/2022 10:22 AM EDT Calculus of bile [...] 3:47 AM EDT) Neutrophil % 47.7 % [facility] Neutrophil Absolute 3.89 1.70 - 6.10 x10(3)/mc L [facility] Lymph % 24.6 % [facility] [place] Lymphocytes Abs 2.0 0.9 - 3.2 x10(3)/mc L [facility] Monocyte % 12.5 % [facility]AL [facility] Monocyte Abs 1.0(H) 0.3 - 0.9 x10(3)/ L [facility] Eos % 12.3 % [facility] Eosinophils Abs 1.0(H) 0.0 - 0.4 x10(3)/ L [facility] Basophil % 1.4 % [facility] ITAL [facility] Baso Absolute 0.1 0.0 - 0.1 x10(3)/[facility] LAB[facility] Immature Gran % 1.50 % [facility] Comment: Immature granulocytes(IG's)percentage and absolute count will include metamyelocytes, myelocytes, and promyelocytes. Blood smears from CBCs yielding IG's will be scanned manually for concordance. If this scan disagrees with the automated IG or if promyelocytes are noted, a manual differential will be performed. Immature Gran Absolute 0.12(H) 0.00 - 0.04 x10(3)/[facility] LAB[facility] Blood 07/27/2022 3:47 AM EDT 07/27/2022 4:15 AM EDT Narrative Resulting Agency Comment Spec In Lab Meme Torres MD HEMATOLOGY ORDERABLE S [facility] [place] [address] * (ABNORMAL) Hemogram (07/27/2022 3:47 AM EDT) White Blood Cell 8.1 4.0 - 9.5 x10(3)/ L [facility] Red Blood Cell 3.56(L) 4.00 - 5.21 x10(6)/[facility] Hemoglobin 9.2(L) 11.7 - 15.5 g/dL [facility] Hematocrit 30.3(L) 35.7 - 45.8 % [facility] Mean Cell Volume 85.1 82.6 - 94.4 fL [facility] Mean Cell Hemoglobin 25.8(L) 27.1 - 32.0 pg [facility] Mean Cell Hemoglobin Concentration 30.4(L) 31.7 - 35.0 g/dL [facility] Platelet 409(H) 145 - 357 x10(3)/mc L [facility] RDW Standard Deviation 45.2 37.0 - 46.0 fL [facility] RDW coefficient of variation 14.6(H) 11.5 - 14.1 % [facility] Mean Platelet Volume 9.8 7.6 - 12.9 fL [facility] NRBC% auto 0.0 % [facility] NRBC Absolute 0.000 0.000 - 0.000 x10(3)/mc L [facility] Blood 07/27/2022 3:47 AM EDT 07/27/2022 4:15 AM EDT Narrative Resulting Agency Comment Spec In Lab Meme Torres MD HEMATOLOGY ORDERABLE S Performing Organization Address City/[facility]/ZIP Co de Phone Number [facility] [place] [address] * Phosphorus (07/27/2022 3:47 AM EDT) Phosphorus 2.8 2.5 - 4.5 mg/dL [facility] Blood 07/27/2022 3:47 AM EDT 07/27/2022 4:15 AM EDT Narrative Resulting Agency Comment Spec In Lab Roberta Vega MD CHEMISTRY ORDERABLE S Performing Organization Address [facility] [facility] Co de Phone Number [facility] [place] [address] * Magnesium (07/27/2022 3:47 AM EDT) Magnesium 0.79 0.69 - 1.07 mmol/L [facility] Blood 07/27/2022 3:47 AM EDT 07/27/2022 4:15 AM EDT Narrative Resulting Agency Comment Spec In Lab Roberta Vega MD CHEMISTRY ORDERABLE S Performing Organization Address [facility] Co de Phone Number [facility] [place] [address] * (ABNORMAL) Comprehensive metabolic panel (non-fasting) (07/27/2022 3:47 AM EDT) Glucose 116 65 - 199 mg/dL [facility] Comment:Diabetes: >=200 mg/d L plus symptoms Blood Urea Nitrogen 19(H) 8 - 18 mg/dL [facility] Creatinine 0.66(L) 0.70 - 1.20 mg/dL [facility] Sodium 141 135 - 145 mmol/L [facility] Potassium 4.0 3.5 - 5.0 mmol/L [facility] Comment: Please note: ??Patients with WBC >100,000 may have falsely elevated Potassium levels. ??For accurate Potassium quantification in these patients send serum separator tube (gold top) for subsequent determinations. ??Contact the Clinical Chemistry Laboratory if there are any questions. Chloride 108(H) 98 - 107 mmol/L [facility] Carbon Dioxide 23 22 - 31 mmol/L [facility] Anion Gap 10 5 - 15 mmol/L [facility] Calcium 8.3(L) 8.5 - 10.5 mg/dL [facility] Protein, Total 5.5(L) 6.1 - 8.0 g/dL [facility] Albumin 3.0(L) 3.2 - 5.2 g/dL [facility] Aspartate Aminotransferase 51(H) 0 - 30 unit/L [facility] Alanine Aminotransferase 111(H) 0 - 30 unit/L [facility] Alkaline Phosphatase 248(H) 35 - 105 unit/L [facility] Bilirubin, Total 0.6 0.2 - 1.3 mg/dL [facility] Est Glomerular Filtration Rate 101 >=60 mL/min/1. 73 m?? [facility] Comment: This patient's estimated GFR [...] Torres MD CHEMISTRY ORDERABLES Performing Organization Address [facility] Co de Phone Number [facility] [place] [address] * Potassium (07/26/2022 9:39 AM EDT) Potassium 4.2 3.5 - 5.0 mmol/L [facility] Comment: Please note: ??Patients with [...] MD CHEMISTRY ORDERABLE S Performing Organization Address [facility] Co de Phone Number [facility] [place] [address] * (ABNORMAL) Differential, Automated (07/26/2022 2:29 AM EDT) Neutrophil % 67.0 % [facility] Neutrophil Absolute 5.83 1.70 - 6.10 x10(3)/mc L [facility] Lymph % 16.4 % [facility] Lymphocytes Abs 1.4 0.9 - 3.2 x10(3)/mc L [facility] Monocyte % 7.8 % [facility] Monocyte Abs 0.7 0.3 - 0.9 x10(3)/mc L [facility] Eos % 7.8 % [facility] Eosinophils Abs 0.7(H) 0.0 - 0.4 x10(3)/mc L [facility] Basophil % 0.7 % [facility] Baso Absolute 0.1 0.0 - 0.1 x10(3)/mc L [facility] Immature Gran % 0.30 % [facility] Comment: Immature granulocytes(IG's)percentage and absolute count will include metamyelocytes, myelocytes, and promyelocytes. Blood smears from CBCs yielding IG's will be scanned manually for concordance. If this scan disagrees with the automated IG or if promyelocytes are noted, a manual differential will be performed. Immature Gran Absolute 0.03 0.00 - 0.04 x10(3)/mc L [facility] Blood 07/26/2022 2:29 AM EDT 07/26/2022 2:46 AM EDT Narrative Resulting Agency Comment Spec In Lab Meme Torres MD HEMATOLOGY ORDERABLE S [facility] [place] [address] * (ABNORMAL) Hemogram (07/26/2022 2:29 AM EDT) White Blood Cell 8.7 4.0 - 9.5 x10(3)/mc L [facility] Red Blood Cell 3.78(L) 4.00 - 5.21 x10(6)/[facility] Hemoglobin 9.9(L) 11.7 - 15.5 g/dL [facility] Hematocrit 32.4(L) 35.7 - 45.8 % [facility] Mean Cell Volume 85.7 82.6 - 94.4 fL [facility] Mean Cell Hemoglobin 26.2(L) 27.1 - 32.0 pg [facility] Mean Cell Hemoglobin Concentration 30.6(L) 31.7 - 35.0 g/dL [facility] Platelet 380(H) 145 - 357 x10(3)/mc L [facility] RDW Standard Deviation 44.7 37.0 - 46.0 fL [facility] RDW coefficient of variation 14.4(H) 11.5 - 14.1 % [facility] Mean Platelet Volume 9.5 7.6 - 12.9 fL [facility] NRBC% auto 0.0 % [facility] NRBC Absolute 0.000 0.000 - 0.000 x10(3)/mc L [facility] Blood 07/26/2022 2:29 AM EDT 07/26/2022 2:46 AM EDT Narrative Resulting Agency Comment Spec In Lab Meme Torres MD HEMATOLOGY ORDERABLE S Performing Organization Address City/[facility]/ZIP Co de Phone Number [facility] [place] [address] * Phosphorus (07/26/2022 2:29 AM EDT) Phosphorus 3.0 2.5 - 4.5 mg/dL [facility] Blood 07/26/2022 2:29 AM EDT 07/26/2022 2:46 AM EDT Narrative Resulting Agency Comment Spec In Lab Roberta Vega MD CHEMISTRY ORDERABLE S Performing Organization Address [facility] Co de Phone Number [facility] [place] [address] * Magnesium (07/26/2022 2:29 AM EDT) Magnesium 0.90 0.69 - 1.07 mmol/L [facility] Blood 07/26/2022 2:29 AM EDT 07/26/2022 2:46 AM EDT Narrative Resulting Agency Comment Spec In Lab Roberta Vega MD CHEMISTRY ORDERABLE S Performing Organization Address [facility] Co de Phone Number [facility] [place] [address] * (ABNORMAL) Comprehensive metabolic panel (non-fasting) (07/26/2022 2:29 AM EDT) Glucose 111 65 - 199 mg/dL [facility] Comment:Diabetes: >=200 mg/d L plus symptoms Blood Urea Nitrogen 13 8 - 18 mg/dL [facility] Creatinine 0.67(L) 0.70 - 1.20 mg/dL [facility] Sodium 141 135 - 145 mmol/L [facility] Potassium 3.5 3.5 - 5.0 mmol/L [facility] Comment: Please note: ??Patients with WBC >100,000 may have falsely elevated Potassium levels. ??For accurate Potassium quantification in these patients send serum separator tube (gold top) for subsequent determinations. ??Contact the Clinical Chemistry Laboratory if there are any questions. Chloride 107 98 - 107 mmol/L [facility] Carbon Dioxide 27 22 - 31 mmol/L [facility] Anion Gap 7 5 - 15 mmol/L [facility] Calcium 7.8(L) 8.5 - 10.5 mg/dL [facility] Protein, Total 5.4(L) 6.1 - 8.0 g/dL [facility] Albumin 3.1(L) 3.2 - 5.2 g/dL [facility] Aspartate Aminotransferase 66(H) 0 - 30 unit/L [facility] Alanine Aminotransferase 132(H) 0 - 30 unit/L [facility] Alkaline Phosphatase 225(H) 35 - 105 unit/L [facility] Bilirubin, Total 1.3 0.2 - 1.3 mg/dL [facility] Est Glomerular Filtration Rate 101 >=60 mL/min/1. 73 m?? [facility] Comment: This patient's estimated GFR [...] In Lab Meme Torres MD CHEMISTRY ORDERABLES [facility] [place] [address] * XR ERCP (07/25/2022 11:46 AM EDT) Narrative RAD - 07/25/2022 11:47 AM EDT See PACS for result report. Sunny Ventura MD IM FILM LIBRARY OR DERABLES [facility] [place], [place] * ERCP (07/25/2022 10:17 AM EDT) ERCP [facility] Endoscopy Procedure Date: 07/25/2022 10:17 AM ? Patient Name: Eliza Moya ? Date of : 1965 ? Age: 57 ? Order #: [id number] ? Instrument Name: [id number] ? Procedure: ? ERCP Indications: ? Evaluation and possible treatment ? of bile duct stone(s) Providers: ? Sunny Ventura MD, Amanda ? Theresa Ann, ? Etl Analyst Developer Referring : ? Medicines: ? General Anesthesia; Indomethacin ? 100 mg WV Complications: ? No immediate complications. Procedure: ? [...] the procedure well. ? Findings: ? The airline lounge receptionist film was normal with the exception of [...] Procedure Code(s): ? --- Professional --- ? 81585, Endoscopic retrograde ? cholangiopancreatography (ERCP); ? with sphincterotomy/papillotomy CPT copyright 2020 [employer]. All rights reserved. The codes documented in this report are preliminary and upon precision devices inspector/tester review may be revised to meet current [...] EDT) Phosphorus 3.5 2.5 - 4.5 mg/dL [facility] Blood Venous Draw / Unknown 07/25/2022 4:00 AM EDT 07/25/2022 4:27 AM EDT Narrative Resulting Agency Comment Spec In Lab Danna Alejandro MD CHEMISTRY ORDERABL ES Performing Organization Address City/[facility]/[place] [address] * Magnesium (07/25/2022 4:00 AM EDT) Pathologist [facility] Magnesium 0.80 0.69 - 1.07 mmol/L [facility] Blood Venous Draw / Unknown 07/25/2022 4:00 AM EDT 07/25/2022 4:27 AM EDT Narrative Resulting Agency Comment Spec In Lab Danna Alejandro MD CHEMISTRY ORDERABL ES Performing Organization Address [facility] [place] [address] * (ABNORMAL) Differential, Automated (07/25/2022 4:00 AM EDT) [facility] Neutrophil % 66.0 % [facility] Neutrophil Absolute 5.35 1.70 - 6.10 x10(3)/mc L [facility] Lymph % 15.4 % [facility] Lymphocytes Abs 1.2 0.9 - 3.2 x10(3)/mc L [facility] Monocyte % 8.3 % [facility] Monocyte Abs 0.7 0.3 - 0.9 x10(3)/mc L [facility] Eos % 8.9 % [facility] Eosinophils Abs 0.7(H) 0.0 - 0.4 x10(3)/mc L [facility] Basophil % 0.9 % [facility] Baso Absolute 0.1 0.0 - 0.1 x10(3)/mc L [facility] Immature Gran % 0.50 % [facility] Comment: Immature granulocytes(IG's)percentage and absolute count will include metamyelocytes, myelocytes, and promyelocytes. Blood smears from CBCs yielding IG's will be scanned manually for concordance. If this scan disagrees with the automated IG or if promyelocytes are noted, a manual differential will be performed. Immature Gran Absolute 0.04 0.00 - 0.04 x10(3)/mc L [facility] Blood 07/25/2022 4:00 AM EDT 07/25/2022 4:26 AM EDT Narrative Resulting Agency Comment Spec In Lab Meme Torres MD HEMATOLOGY ORDERABLE S Performing Organization Address City/[facility]/ZIP Co de Phone Number [facility] [place] [address] * (ABNORMAL) Hemogram (07/25/2022 4:00 AM EDT) White Blood Cell 8.1 4.0 - 9.5 x10(3)/mc L [facility] Red Blood Cell 4.16 4.00 - 5.21 x10(6)/mc L [facility] Hemoglobin 11.1(L) 11.7 - 15.5 g/dL [facility] Hematocrit 35.2(L) 35.7 - 45.8 % [facility] Mean Cell Volume 84.6 82.6 - 94.4 fL [facility] Mean Cell Hemoglobin 26.7(L) 27.1 - 32.0 pg [facility] Mean Cell Hemoglobin Concentration 31.5(L) 31.7 - 35.0 g/dL [facility] Platelet 418(H) 145 - 357 x10(3)/mc L [facility] RDW Standard Deviation 44.6 37.0 - 46.0 fL [facility] RDW coefficient of variation 14.5(H) 11.5 - 14.1 % [facility] Mean Platelet Volume 9.5 7.6 - 12.9 fL [facility] NRBC% auto 0.0 % [facility] NRBC Absolute 0.000 0.000 - 0.000 x10(3)/mc L [facility] Blood 07/25/2022 4:00 AM EDT 07/25/2022 4:26 AM EDT Narrative Resulting Agency Comment Spec In Lab Meme Torers MD HEMATOLOGY ORDERABLE S Performing Organization Address City/[facility]/ZIP Co de Phone Number [facility] [place] [address] * (ABNORMAL) Comprehensive metabolic panel (non-fasting) (07/25/2022 4:00 AM EDT) Glucose 112 65 - 199 mg/dL [facility] Comment:Diabetes: >=200 mg/d L plus symptoms Blood Urea Nitrogen 11 8 - 18 mg/dL [facility] Creatinine 0.71 0.70 - 1.20 mg/dL [facility] Sodium 141 135 - 145 mmol/L [facility] Potassium 3.9 3.5 - 5.0 mmol/L [facility] Comment: Please note: ??Patients with WBC >100,000 may have falsely elevated Potassium levels. ??For accurate Potassium quantification in these patients send serum separator tube (gold top) for subsequent determinations. ??Contact the Clinical Chemistry Laboratory if there are any questions. Chloride 106 98 - 107 mmol/L [facility] Carbon Dioxide 28 22 - 31 mmol/L [facility] Anion Gap 7 5 - 15 mmol/L [facility] Calcium 8.4(L) 8.5 - 10.5 mg/dL [facility] Protein, Total 5.8(L) 6.1 - 8.0 g/dL [facility] Albumin 3.2 3.2 - 5.2 g/dL [facility] Aspartate Aminotransferase 119(H) 0 - 30 unit/L [facility] Alanine Aminotransferase 158(H) 0 - 30 unit/L [facility] Alkaline Phosphatase 226(H) 35 - 105 unit/L [facility] Bilirubin, Total 2.2(H) 0.2 - 1.3 mg/dL [facility] Est Glomerular Filtration Rate 98 >=60 mL/min/1. 73 m?? [facility] Comment: This patient's estimated GFR [...] In Lab Meme Torres MD CHEMISTRY ORDERABLES [facility] [address] [place] [address] * (ABNORMAL) Request For 2nd Read CT [...] have questions please contact the health care coordinator that requested your imaging first. ? Narrative 07/25/2022 6:38 AM EDT EXAMINATION: REQUEST FOR 2ND READ CT ABDOMEN AND PELVIS CLINICAL HISTORY: 57yoF with extensive prior surgical history of RouxY for duodenal ulcer, recent large incisional hernia repair with mesh, now here with concern for cholecystitis.; Sending Institution [facility]; Date of exam [id number]; I believe a reinterpretation of this exam may alter care of Patient. Yes TECHNIQUE: Helical CT of the abdomen and pelvis following the intravenous administration of contrast. 90 cc Omnipaque 350 intravenous contrast. Oral contrast was not administered. Study performed July 24, 2022 at [facility]. COMPARISON: March 17, 2022 FINDINGS: Lower [...] Unexpected Finding Meme Torres MD IMG OUT[facility]IDE [facility] T[facility] ORDERABLES * (ABNORMAL) Differential, Automated (07/24/2022 8:40 PM EDT) Neutrophil % 79.3 % [facility] Neutrophil Absolute 11.63(H) 1.70 - 6.10 x10(3)/mc L [facility] Lymph % 7.6 % [facility] Lymphocytes Abs 1.1 0.9 - 3.2 x10(3)/mc L [facility] Monocyte % 7.1 % [facility] Monocyte Abs 1.0(H) 0.3 - 0.9 x10(3)/mc L [facility] Eos % 4.7 % [facility] Eosinophils Abs 0.7(H) 0.0 - 0.4 x10(3)/ L [facility] Basophil % 0.8 % [facility] Baso Absolute 0.1 0.0 - 0.1 x10(3)/ L [facility] Immature Gran % 0.50 % [facility] Comment: Immature granulocytes(IG's)percentage and absolute count will include metamyelocytes, myelocytes, and promyelocytes. Blood smears from CBCs yielding IG's will be scanned manually for concordance. If this scan disagrees with the automated IG or if promyelocytes are noted, a manual differential will be performed. Immature Gran Absolute 0.07(H) 0.00 - 0.04 x10(3)/ L [facility] Blood 07/24/2022 8:40 PM EDT 07/24/2022 8:46 PM EDT Narrative Resulting Agency Comment Spec In Lab Rupesh Burroughs MD HEMATOLOGY ORDERABLE S [facility] [place] [address] * (ABNORMAL) Hemogram (07/24/2022 8:40 PM EDT) White Blood Cell 14.7(H) 4.0 - 9.5 x10(3)/ L [facility] Red Blood Cell 4.57 4.00 - 5.21 x10(6)/[facility] Hemoglobin 11.9 11.7 - 15.5 g/dL [facility] Hematocrit 38.0 35.7 - 45.8 % [facility] Mean Cell Volume 83.2 82.6 - 94.4 fL [facility] Mean Cell Hemoglobin 26.0(L) 27.1 - 32.0 pg [facility] Mean Cell Hemoglobin Concentration 31.3(L) 31.7 - 35.0 g/dL [facility] Platelet 468(H) 145 - 357 x10(3)/ L [facility] RDW Standard Deviation 44.1 37.0 - 46.0 fL [facility] RDW coefficient of variation 14.6(H) 11.5 - 14.1 % [facility] Mean Platelet Volume 9.1 7.6 - 12.9 fL [facility] NRBC% auto 0.0 % [facility] NRBC Absolute 0.000 0.000 - 0.000 x10(3)/mc L [facility] Blood 07/24/2022 8:40 PM EDT 07/24/2022 8:46 PM EDT Narrative Resulting Agency Comment Spec In Lab Rupesh Burroughs MD HEMATOLOGY ORDERABLE S Performing Organization Address [facility] Co de Phone Number [facility] [place] [address] * Amylase (07/24/2022 8:40 PM EDT) Amylase 41 28 - 100 unit/L [facility] Blood 07/24/2022 8:40 PM EDT 07/24/2022 8:46 PM EDT Narrative Resulting Agency Comment Spec In Lab Roberta Vega MD CHEMISTRY ORDERABLE S Performing Organization Address [facility] Co de Phone Number [facility] [place] [address] * Lipase (07/24/2022 8:40 PM EDT) Lipase 21 0 - 60 unit/L [facility] Blood 07/24/2022 8:40 PM EDT 07/24/2022 8:46 PM EDT Narrative Resulting Agency Comment Spec In Lab Roberta Vega MD CHEMISTRY ORDERABLE S Performing Organization Address [facility] Co de Phone Number [facility] [place] [address] * (ABNORMAL) Comprehensive metabolic panel (non-fasting) (07/24/2022 8:40 PM EDT) Glucose 133 65 - 199 mg/dL [facility] Comment:Diabetes: >=200 mg/d L plus symptoms Blood Urea Nitrogen 12 8 - 18 mg/dL [facility] Creatinine 0.71 0.70 - 1.20 mg/dL [facility] Sodium 140 135 - 145 mmol/L [facility] Potassium 3.8 3.5 - 5.0 mmol/L [facility] Comment: Please note: ??Patients with WBC >100,000 may have falsely elevated Potassium levels. ??For accurate Potassium quantification in these patients send serum separator tube (gold top) for subsequent determinations. ??Contact the Clinical Chemistry Laboratory if there are any questions. Chloride 105 98 - 107 mmol/L [facility] Carbon Dioxide 27 22 - 31 mmol/L [facility] Anion Gap 8 5 - 15 mmol/L [facility] Calcium 8.5 8.5 - 10.5 mg/dL [facility] Protein, Total 6.7 6.1 - 8.0 g/dL [facility] Albumin 3.8 3.2 - 5.2 g/dL [facility] Aspartate Aminotransferase 160(H) 0 - 30 unit/L [facility] Alanine Aminotransferase 180(H) 0 - 30 unit/L [facility] Alkaline Phosphatase 255(H) 35 - 105 unit/L [facility] Bilirubin, Total 1.9(H) 0.2 - 1.3 mg/dL [facility] Est Glomerular Filtration Rate 98 >=60 mL/min/1. 73 m?? [facility] Comment: This patient's estimated GFR [...] MD CHEMISTRY ORDERABLE S Performing Organization Address City/State/[facility] Co de Phone Number [facility] [place] [address] * APTT (07/24/2022 8:40 PM EDT) Partial Thromboplastin Time 34 25 - 37 sec [facility] Comment: The PTT is NOT appropriate for heparin monitoring. Use the Anti-Xa level for heparin monitoring (HEP UFH) or LMWH monitoring (HEP LMW). A PTT less than 37 seconds generally indicates adequate hemostasis. Blood 07/24/2022 8:40 PM EDT 07/24/2022 8:46 PM EDT Narrative Resulting Agency Comment Spec In Lab Roberta Vega MD HEMATOLOGY ORDERABL ES Performing Organization Address [facility] de Phone Number [facility] [place] [address] * (ABNORMAL) Prothrombin Time (07/24/2022 8:40 PM EDT) Prothrombin Time 17.8(H) 9.4 - 12.5 sec [facility] International Normalization Ratio 1.6 [facility] Comment: An INR <2.0 indicates adequate [...] MD HEMATOLOGY ORDERABL ES Performing Organization Address [facility] Co de Phone Number [facility] [place] [address] documented in this encounter Visit Diagnoses Diagnosis Acute cholecystitis- Primary documented in this encounter Admitting Diagnoses Diagnosis Acute cholecystitis documented in this encounter Administered Medications Inactive Administered Medications - up to 3 most recent administrations Medication Order MAR Action Action Date Dose Rate Site acetaminophen (Tylenol) tablet 975 mg 975 mg, Oral, EVERY 6 HOURS PRN, Starting on Wed07/24/22 at 2027, Until Wed07/24/22 at 2250, Pain, for MILD pain (1-3), Maximum dose of acetaminophen is 4,000 mg from all sources in 24 hours. When ordered for pain, acetaminophen should be given even when other ordered pain medications are indicated. , Routine Given 07/24/2022 10:10 PM EDT 975 mg acetaminophen (Tylenol) tablet 975 mg 975 mg, [...] 4 HOURS PRN, Starting on Wed07/24/22 at 8, Until Wed07/27/22 at 1453, Wheezing, Routine Given [...] 2 g 1 6- Thigh Anterior (Right) sxujwctmskt-dvuzfcreemeh-yafttbtnay (Trelegy Ellipta) 100-62.5-25 mcg inhaler 1 puff [...] Given 07/26/2022 1:49 PM EDT 5,000 Units indomethacin (Indocin) suppository 100 mg 100 mg, Rectal, ONCE, 1 dose, On 07/25/22 at 1130, Endoscopy (Intra-Procedure), Routine Given 07/25/2022 11:30 AM EDT 100 mg levothyroxine (Synthroid) tablet 50 mcg 50 mcg, [...] EDT 3 patches 16- Thigh Anterior (Right) magnesium sulfate 2 g in sterile water 50 mL infusion 2 g, Intravenous, ONCE, 1 dose, On 07/25/22 at 1015, Administer over 120 Minutes Restarted 07/25/2022 11:38 AM EDT 25 mL/hr New Bag 07/25/2022 10:03 AM EDT 2 g 25 mL/hr magnesium sulfate 2 g in sterile water 50 mL infusion 2 g, Intravenous, ONCE, 1 dose, On 07/27/22 at 0645, Administer over 120 Minutes New Bag 07/27/2022 6:07 AM EDT 2 g 25 mL/hr multivitamin with minerals (Thera M) tablet 1 tablet 1 tablet, Oral, DAILY, First dose on 07/25/22 at 0900, Until Discontinued, Routine Given 07/27/2022 8:21 AM EDT 1 tablet Given 07/26/2022 8:52 AM EDT 1 tablet Given 07/25/2022 9:00 AM EDT 1 tablet oxyCODONE (Roxicodone) tablet 5 mg 5 mg, Oral, EVERY 4 HOURS PRN, Starting on 07/25/22 at 0836, Until Wed07/27/22 at 1453, Pain, pain not relieved by [...] Given 07/26/2022 8:53 AM EDT 17 g potassium chloride ER (Klor-Con M) crystal tablet 40 mEq 40 mEq, Oral, ONCE, 1 dose, On [...] crush, chew, or suck on tablet., Routine Given 07/26/2022 6:04 AM EDT 40 mEq senna-docusate (Pericolace) 8.6-50 mg per tablet 2 [...] inhaler? Yes 0900 (Not Given - Provider: Phuong Bourne RN - Reason: See comment - Comment: not verified by pharmacy)1027 (MAY Hold - Provider: Admin Adt - Reason: Transfer to a Procedural area)1132 (MAY Unhold - Provider: Admin Adt) 0642 (Given [...] (Intra-Procedure), Routine 1130 (Given - Provider: Amanda Ann RN) levothyroxine (Synthroid) tablet 50 mcg 50 mcg, [...] RN)1004 (Stopped - Provider: Guillermo Maki Jr., FRANKIE)1347 (New Bag - Provider: Linda Jacob LPN)1747 (Stopped - Provider: Linda Jacob LPN)2023 (New Bag - Provider: Leyla Soto RN) 0024 (Stopped - Provider: Leyla Soto RN)0540 (New Bag - Provider: Leyla Soto RN)0940 (Stopped - Provider: Guillermo Maki Jr., RN) polyethylene glycoL (Miralax) packet 17 g 17 g, Oral, DAILY, First dose on Wed07/25/22 at 0900, Until Discontinued, Routine 0900 (Not Given - Provider: Phuong Bourne RN - Reason: Patient/family refused)1027 (MAY Hold - Provider: Admin Adt - Reason: Transfer to a Procedural area)1132 (MAY Unhold - Provider: Admin Adt) 0853 (Given [...] Phuong Bourne RN - Reason: Patient/family refused)1027 (MAY Hold - Provider: Admin Adt - Reason: Transfer to a Procedural area)1132 (MAY Unhold - Provider: Admin Adt)2100 (Not Given - Provider: Leyla Soto RN - Reason: Patient/family refused) 0852 (Given - Provider: Guillermo Maki Jr., RN)2008 (Given - Provider: Leyla Soto RN) 0821 (Given - Provider: Linda Jacob LPN) sodium chloride 0.9 % (flush) (BD PosiFlush Normal Saline 0.9) flush 5 mL 5 mL, Intravenous, 2 TIMES DAILY, First dose on Wed07/24/22 at 2115, Until Discontinued, Recovery (Recovery-Hospital Unit), Routine 0902 (Given - Provider: Phuong Bourne RN)2044 (Given - Provider: Leyla Soto RN) 851 (Given - Provider: Guillermo Maki Jr., RN)2008 (Given - Provider: Leyla Soto RN) 822 (Not Given - Provider: Linda Jacob LPN - Reason: See comment - Comment: currently infusing see [facility]) traZODone (Desyrel) tablet 50 mg 50 mg, Oral, NIGHTLY, First dose on Wed07/24/22 at 2315, Until Discontinued, Routine 102 (MAY Hold - Provider: Admin Adt - Reason: Transfer to a Procedural area)113 ([facility] Unhold - Provider: Admin Adt)2044 (Given - Provider: Leyla Soto RN) 2008 (Given - Provider: Leyla Soto RN) PRN Medication Order 07/25/2022 07/26/2022 07/27/2022 albuteroL (Proventil, Ventolin) (2.5 mg/3 mL) (0.083 %) nebulizer solution 2.5 mg 2.5 mg, Nebulization, EVERY 4 HOURS PRN, Starting on Wed07/24/22 at 2028, Until Wed07/27/22 at 1453, Wheezing, Routine 0412 (Given - Provider: Gerri Kat RN)102 ([facility] Hold - Provider: Admin Adt - Reason: Transfer to a Procedural area)113 ([facility] Unhold - Provider: Admin Adt)2131 (Given - Provider: Leyla Soto RN) lidocaine (Xylocaine) 1% (10 mg/mL) injection 3 mg 3 mg (0.3 mL), Subcutaneous, ONCE PRN, 1 dose, Starting on Wed07/24/22 at 2028, Until Wed07/27/22 at 1453, for discomfort with PIV insertion, Recovery (Recovery-Hospital Unit), Routine oxyCODONE (Roxicodone) tablet 5 mg 5 mg, Oral, EVERY 4 HOURS PRN, Starting on Wed07/25/22 at 0836, Until Wed07/27/22 at 1453, Pain, pain not relieved by [...] Wed07/24/22 at 2028, Until Wed07/27/22 at 1453, flush, Flush pertains to all [...] Routine documented in this encounter Care Teams Electrical Unit Rebuilder Relationship Specialty Start Date End Date Nya Hernandez APRN [address] [place] [id number] PCP - General Family Medicine 05/07/21 documented as of this encounter
--- OUTSIDE RECORDS SUMMARY | 2023-12-28 16:18 | XMS_ITS | Encounter Summary ---
Author Organization [facility] [place] [address] Care Team Providers Care High Lead Yarder Name Role Phone Nya Hernandez APRN Primary Care Provider +1- [phone] Reason for Referral * Consultation (Routine) - Closed Specialty Diagnoses / Procedures Referred By Tomas early Referred To Contact Neurology Diagnoses Memory loss Acquired hypothyroidism Persistent disorder of initiating or maintaining sleep Nya Hernandez APRN [address] [place] [address] [facility] Neurology [address] [place] [phone] Referral ID Status Reason Start Date Expiration Date V isits Requested Visits Authorized [id number] Closed Consult, Test & Treat PCP Updated and/or Approved 09/24/2022 09/25/2023 12 12 Encounter Details Date Type Department Care Team (Late st Contact Info) Description 10/01/2022 Transcribe Orders eDH Incoming Referrals [phone] Nya Hernandez APRN [address] [place], [place] [address] Memory loss; Acquired hypothyroidism; Persistent disorder of initiating or maintaining sleep Social History Tobacco Use Types Packs/Day Years [...] of this encounter Plan of Treatment Scheduled Referrals Name Type Priority Associated Diagnoses Orde r Schedule Referral to Neurology Outpatient Referral Routine Memory loss Acquired hypothyroidism Persistent disorder of initiating or maintaining sleep Ordered: 10/01/2022 documented as of this encounter Visit Diagnoses Diagnosis Memory loss Acquired hypothyroidism Unspecified hypothyroidism Persistent disorder of initiating or maintaining sleep documented in this encounter Care Teams High Lead Yarder Relationship Specialty Start Date End Date Nya Hernandez, GRIZZLYMAN [address] [place] [id number] PCP - General Family Medicine 05/07/21 documented as of this encounter
--- OUTSIDE RECORDS SUMMARY | 2023-12-28 16:18 | XMS_ITS | Encounter Summary ---
Author Organization [facility] [place] [address] Care Team Providers Care Head Grease Maker Name Role Phone Nya Hernandez APRN Primary Care Provider +1- [phone] Encounter Details Date Type Department Care Team (Latest Contact Info) Description 06/29/2022 Travel Social History Tobacco Use Types Packs/Day Years [...] on filedocumented in this encounter Care Teams Head Grease Maker Relationship Specialty Start Date End Date Nya Hernandez APRN [address] [place] [address] PCP - General Family Medicine 05/07/21 documented as of this encounter
--- OUTSIDE RECORDS SUMMARY | 2023-12-28 16:18 | XMS_ITS | Encounter Summary ---
[place] [address] Care Team Providers Care Turbine Engineer Name Role Phone Nya Hernandez APRN Primary Care Provider +1- [phone] Reason for Referral * Consultation (Urgent) - Closed Specialty Diagnoses / Procedures Referred By Tomas early Referred To Contact Otolaryngology Diagnoses Oral mass Nya Hernandez APRN [address] [place] [address] [facility] [address] [place] [phone] Referral ID Status Reason Start Date Expiration Date V isits Requested Visits Authorized [id number] Closed Consult, Test & Treat PCP Updated and/or Approved 07/06/2022 07/06/2023 6 6 Encounter Details Date Type Department Care Team (Late st Contact Info) Description 07/06/2022 Transcribe Orders eDH Incoming Referrals [phone] Nya Hernandez APRN [address] [place] [phone] Oral mass Social History Tobacco Use Types Packs/Day [...] Associated Diagnoses Orde r Schedule Referral to ENT Outpatient Referral Urgent Oral mass Ordered: 07/06/2022 documented as of this encounter Visit Diagnoses Diagnosis Oral mass Swelling, mass, or lump in head and neck documented in this encounter Care Teams Turbine Engineer Relationship Specialty Start Date End Date Nya Hernandez APRN [address] [place] [address] PCP - General Family Medicine 05/07/21 documented as of this encounter
--- OUTSIDE RECORDS SUMMARY | 2023-12-28 16:18 | XMS_ITS | Encounter Summary ---
[place] [address] Care Team Providers Care Rental Agent Name Role Phone Nya Hernandez SERGIO Primary Care Provider +1- [phone] Encounter Details Date Type Department Care Team (Late st Contact Info) Description 09/02/2022 Telephone [place] [address] Kita Mcclellan Social History Tobacco Use Types Packs/Day Years Used Date Smoking Tobacco: Former Cigarettes 1 40 0 10/07/1981 - 10/07/2021 Smokeless Tobacco: Never Comments:never vape Alcohol Use Standard Drinks/Week Comments Not Currently 0 (1 standard drink = 0.6 oz pur e alcohol) none since 06/2020 [facility] Inpatient Questions Answer Date Recorded [...] on file documented as of this encounter Miscellaneous Notes * Telephone Encounter - Kita Mcclellan - 09/02/2022 10:23 AM EDT LVM on [phone] of scheduled appointment time change and requested call back to confirm or re-lennox. Moved from 840 LUIS to 830am to see Tramaine Chavez as Dr. Feliz will be in the OR now and this was approved to keep her same day otherwise she would be booked out sometime in October. Future Appointments Date Time Provider Department Center 09/07/2022 8:30 AM Tramaine Chavez [place] [facility] documented in this encounter Plan of Treatment Not on file documented as of this encounter Visit Diagnoses Not on filedocumented in this encounter Care Teams Rental Agent Relationship Specialty Start Date End Date Nya Hernandez APRN [address] [place] [id number] PCP - General Family Medicine 05/07/21 documented as of this encounter
--- OUTSIDE RECORDS SUMMARY | 2023-12-28 16:18 | XMS_ITS | Continuity of Care Document ---
Author Organization [facility] Address [address] [place] [address] Care Team Providers Care Talent Management Manager Name Role Phone Nya Hernandez Primary Care Physician [phone] Encounter [facility] [id number] Date(s): 07/20/23 - 07/20/[address] [address] Discharge Disposition: Home or Self Care Attending Physician: Nya Hernandez PIPED BUTTONHOLE MACHINE OPERATOR Admitting Physician: Nya Hernandez PIPED BUTTONHOLE MACHINE OPERATOR Referring Physician: Nya Hernandez PIPED BUTTONHOLE MACHINE OPERATOR Allergies, Adverse Reactions, Alerts Substance Reaction [...] 0 Refill(s), 07/24/23 9:32:00 AM CDT, Pharmacy: [facility] 4156, 160, cm, 07/15/23 [...] swallow, # 210 mL, 0 Refill(s), Pharmacy: [facility] 4156, 160, cm, 07/15/23 7:03:00 EDT, Height, [...] 0 Refill(s), 07/22/23 7:58:00 AM CDT, Pharmacy: [facility] 4156, 160, cm, 07/15/23 7:03:00 EDT, Height, 102, kg, 07/15/23 7:30:00 EDT, Weight Dosing Start Date: 07/15/23 Stop Date: 07/22/23 Status: Ordered traZODone 50 mg oral tablet 0 Refill(s) Start Date: 10/29/21 Status: Ordered Trelegy Ellipta 100 mcg-62.5 mcg-25 mcg/inh inhalation powder 0 Refill(s) Start Date: 10/29/21 Status: Ordered Problem List Condition Confirmation Course Effective Dates Status H ealt Status Informant Acute non-ST segment elevation myocardial [...] information Care Team Personnel Name: Nya Hernandez PIPED BUTTONHOLE MACHINE OPERATOR Position: PowerChart View Only Member Role: Primary Care Physician Address: Address: [address] [place] [address]- Care Team Related Persons Name: TANG KONG Address: Home [address], [id number]
--- OUTSIDE RECORDS SUMMARY | 2023-12-28 16:18 | XMS_ITS | Encounter Summary ---
Author Organization [facility] [place] [address] Care Team Providers Care Telephonic Nurse Name Role Phone Nya Hernandez SERGIO Primary Care Provider +1- [phone] Encounter Details Date Type Department Care Team (Late st Contact Info) Description 07/24/2022 12:50 PM EDT Ancillary Procedure Radiology Library at [facility] [place] [address] Nakul Vega MD [facility] [place] [address] Social History Tobacco Use Types Packs/Day Years Used Date Smoking Tobacco: Former Cigarettes 1 40 0 10/07/1981 - 10/07/2021 Smokeless Tobacco: Never Comments:never vape Alcohol Use Standard Drinks/Week Comments Not Currently 0 (1 standard drink = 0.6 oz pur e alcohol) none since 06/2020 [facility] Inpatient Questions Answer Date Recorded Does [...] Associated Diagnosis Comments FILM LIBRARY STORAGE ONLY CT ABDOMEN AND PELVIS Routine 07/24/2022 12:41 PM EDT documented in this encounter Results * Film Library- Storage Only CT Abdomen & Pelvis (07/24/2022 12:41 PM EDT) Narrative [facility] - 07/24/2022 12:41 PM EDT This exam is auto-finalizing. It's purpose is for storage only. Nakul Vega MD IMG FILM LIBRARY OR DERABLES Performing Organization Address City/State/[facility] Co de Phone Number [place], [place] documented in this encounter Visit Diagnoses Not on filedocumented in this encounter Care Teams Telephonic Nurse Relationship Specialty Start Date End Date Nya Hernandez, HAIR SPINNER [address] [place] [address] PCP - General Family Medicine 05/07/21 documented as of this encounter
--- OUTSIDE RECORDS SUMMARY | 2023-12-28 16:19 | XMS_ITS | Encounter Summary ---
Author Organization [facility] [place] [address] Care Team Providers Care Advertising Material Distributor Name Role Phone Nya Hernandez SERGIO Primary Care Provider +1- [phone] Reason for Visit * Reason Comments Follow Up Surgery Encounter Details Date Type Department Care Team (Late st Contact Info) Description 06/15/2022 10:45 AM EDT Office [place] [address] Whit Nance MD [facility] [place] [address] Hx of ventral hernia repair Social History Tobacco Use Types Packs/Day Years [...] Sign Reading Time Taken Comments Blood Pressure 128/48 06/15/2022 10:44 AM EDT Pulse 82 06/15/2022 10:44 AM EDT Temperature 36.3 ??C (97.4 ??F) 06/15/2022 10:44 AM E DT Respiratory Rate 18 06/15/2022 10:44 AM EDT Oxygen Saturation 96% 06/15/2022 10:44 AM EDT Inhaled Oxygen Concentration - - Weight - - Height - - Body Mass Index - - documented in this encounter Progress Notes * Whit Nance MD - 06/15/2022 10:45 AM EDT [facility] General Surgery Postoperative Follow up Subjective: Eliza Moya is a 57 y.o. female who presents today for follow up after an open incisional hernia repair with bilateral TAR and mesh implantation on 06/01/22. She has done well at home. She denies pain unless she turns a certain way at night. She is eating and drinking without a problem and having regular bowel function. Objective: Physical Exam: Vital Signs: BP 128/48 Pulse 82 Temp 36.3 ??C (97.4 ??F) (Skin) Resp 18 SpO2 96% General appearance: Alert and oriented, appears stated age, well groomed HEENT: Normocephalic, atraumatic Heart: Regular rate Lungs: Symmetric chest rise, no distress Abdomen: Non distended, soft, non tender to palpation, midline incision is intact with some scabbing. Umbilicus is healing well and less swollen. No drainage or erythema. Extremities: Moves all four extremities, no gross deformity. Assessment and Recommendation: A 57 y.o.-old female s/p open incisional hernia repair with bilateral TAR and mesh implantation on 06/01/22. She is recovering well overall. Dodson removed today in clinic and steristrips applied. She has telehealth follow up with me at the end of this month. Whit Nance MD General Surgery Minimally Invasive Surgery [phone] documented in this encounter Plan of Treatment Not on file documented as of this encounter Visit Diagnoses Diagnosis Hx of ventral hernia repair Personal history of surgery to other organs documented in this encounter Care Teams Advertising Material Distributor Relationship Specialty Start Date End Date Nya Hernandez APRN [address] [address] PCP - General Family Medicine 05/07/21 documented as of this encounter
--- OUTSIDE RECORDS SUMMARY | 2023-12-28 16:19 | XMS_ITS | Encounter Summary ---
[place] [address] Care Team Providers Care Aluminum Shingle Roofer Name Role Phone Nya Hernandez APRN Primary Care Provider +1- [phone] Reason for Referral * Consultation (Urgent) - Closed Specialty Diagnoses / Procedures Referred By Tomas early Referred To Contact Otolaryngology Diagnoses Oral mass sent to Nya Solo APRN [address] [place] [address] [facility] [address] [place] [phone] Referral ID Status Reason Start Date Expiration Date V isits Requested Visits Authorized [id number] Closed Consult, Test & Treat PCP Updated and/or Approved 05/21/2022 05/21/2023 6 6 Encounter Details Date Type Department Care Team (Late st Contact Info) Description 05/21/2022 Transcribe Orders eDH Incoming Referrals [phone] Nya Hernandez APRN [address] [place], [place] [address] Oral mass Social History Tobacco Use Types Packs/Day Years Used Date Smoking Tobacco: Former Cigarettes 1 40 0 10/07/1981 - 10/07/2021 Smokeless Tobacco: Never Comments:never vape Alcohol Use Standard Drinks/Week Comments Yes 0 (1 standard drink = 0.6 oz pur e alcohol) none since 06/2020 Sex and Gender Information Value Date Recorded Sex Assigned at Not on file Gender Identity Not on file Sexual Orientation Not on file documented as of this encounter Plan of Treatment Scheduled Referrals Name Type Priority Associated Diagnoses Orde r Schedule Referral to ENT Outpatient Referral Urgent Oral mass Ordered: 05/21/2022 documented as of this encounter Visit Diagnoses Diagnosis Oral mass Swelling, mass, or lump in head and neck documented in this encounter Care Teams Aluminum Shingle Roofer Relationship Specialty Start Date End Date Nya Hernandez APRN [address] [place] [phone] PCP - General Family Medicine 05/07/21 documented as of this encounter
--- OUTSIDE RECORDS SUMMARY | 2023-12-28 16:19 | XMS_ITS | Encounter Summary ---
Author Organization [facility] [place] [address] Care Team Providers Care Chief Compliance Officer Name Role Phone Nya Hernandez SERGIO Primary Care Provider [phone] Reason for Visit * Auth/Cert (Routine) Specialty Diagnoses / Procedures Referred By Tomas early Referred To Contact Diagnoses Incisional hernia Procedures PRO REPAIR AA HERNIA INITIAL > 10 CM INCARCERATED/STRANGULATED @REPAIR ANT. ABDOMINAL HERNIA(S) (IE, EPIGASTRIC, INCISIONAL, VENTRAL, UMBILICAL, SPIGELIAN), INITIAL, W-WO MESH; GREATER THAN 10 CM, INCARCERATED OR STRANGULATED MODIFIER MESH,BARD VENTRALIGHT ST Whit Nance MD [facility] [place] [address] [facility] Referral ID Status Reason Start Date Expiration Date Visits Re quested Visits Authorized [id number] 1 1 Encounter Details Date Type Department Care Team (Late st Contact Info) Description 06/01/2022 7:30 AM EDT - 06/01/2022 4:15 PM EDT Surgery [place] [address] Whit Nance MD [facility] [place] [address] REPAIR ANT. ABDOMINAL HERNIA(S) (IE, EPIGASTRIC, INCISIONAL, VENTRAL, UMBILICAL, SPIGELIAN), INITIAL, W-WO MESH; GREATER THAN 10 CM, REDUCIBLE (WRVU 13.94) Social History Tobacco Use Types Packs/Day Years [...] Sign Reading Time Taken Comments Blood Pressure 123/67 06/01/2022 4:00 PM EDT Pulse 90 06/01/2022 4:00 PM EDT Temperature 36.6 ??C (97.9 ??F) 06/01/2022 4:00 PM ED T Respiratory Rate 21 06/01/2022 4:00 PM EDT Oxygen Saturation 92% 06/01/2022 4:00 PM EDT Inhaled Oxygen Concentration - - Weight 90.7 kg (200 lb) 06/01/2022 6:23 AM EDT Height 160 cm (5' 3) 06/01/2022 6:23 AM EDT Body Mass Index 35.43 06/01/2022 6:23 AM EDT documented in this encounter Discharge Summaries * Whit Nance MD - 06/05/2022 2:42 PM EDT Images from the original note were not included. General Surgery Discharge Summary Patient Name: Eliza Moya Patient Age: 57 y.o. : 1965 Attending Physician: Whit Nance MD Date of Admission: 06/01/2022 Date of Discharge: 06/05/22 Reason for admission: Post operative care following: open ventral hernia repair Primary Diagnosis: midline incisional hernia Secondary Diagnosis: Patient Active Problem List Diagnosis Code ??? Perforated viscus R19.8 ??? NSTEMI (non-ST elevated myocardial infarction) I21.4 ??? CAD (coronary artery disease) I25.10 ??? COPD (chronic obstructive pulmonary disease) J44.9 ??? HTN (hypertension) I10 ??? Hypothyroid E03.9 ??? PAD (peripheral artery disease) I73.9 ??? Ventral hernia K43.9 Acute pulmonary insufficiency following surgery due to atelectasis & COPD. Operations and Procedures: Procedure(s): REPAIR ANT. ABDOMINAL HERNIA(S) (IE, EPIGASTRIC, INCISIONAL, VENTRAL, UMBILICAL, SPIGELIAN), INITIAL, W-WO MESH; GREATER THAN 10 CM, REDUCIBLE (WRVU 13.94) MODIFIER MESH,BARD SOFT MESH FLAP, MYOCUTANEOUS OR FASCIOCUTANEOUS, TRUNK (WRVU 23) MODIFIER MESH IMPLANTATION Surgeons: Surgeon(s) and Role: * Whit Nance MD - Primary * Ramona Arvizu MD - Resident History of Present Illness: Eliza Moya is a 57 y.o. female with h/o COPD, PAD s/p right AKA, hypertension, CAD s/p PCI (05/2021), a fib, perforated duodenal ulcer in 2020 s/p multiple ex-laps and Donavan-en-Y duodenojejunostomy who subsequently developed a midline incisional hernia. She presents for hernia repair. Hospital Course: Eliza Moya is a 57 y.o. female who was admitted on 06/01/2022 postoperatively after an open ventral hernia repair. Operative course was uneventful, please see operative note for further detail. Postoperatively she received a clear liquid diet as well as tylenol, lidoderm patches, robaxin and PRN oxycodone for pain control. Her home Eliquis was resumed POD2. On POD#1 her diet was advanced to regular diet, which was tolerated well. she was changed to oral pain medications andIV analgesics were discontinued. she was voiding without difficulty. Prior to discharge on 06/05/22 or hospital day 4, patient's pain was well controlled with oral painmedications,lee catheter was removed, patient was voiding without difficulty, and wounds were intact and healing appropriately. Her LUIS drain and provena were removed. Patient did have a bowel movement prior to discharge and was passing flatus and tolerating a Regular diet. She did require home oxygen after failing a walk test with RT 06/04/22. Unfortunately while waiting for her home oxygen tank to arrive to her room that patient received conflicting information from nursing staff stating she may not need home oxygen. This caused confusion for the patient and she thenendorsed wanting to leave prior to the oxygen tank's arrival to her room. I personally discussed and clarified with patient that she in fact did need home oxygen as she had failed a walk test the dayprior and desaturated to 84% with ambulation on RA. At this time she was willing to wait for the oxygen. I was later notified by nursing staff that the patient left AMA and nursing had signed the AMA paperwork with her. A provider never had the opportunity to discuss the AMA paperwork or what that meant. She was contacted by Dr. Nance who felt she did not fully understand the risks of leaving AMA. Case management is still working to arrange home oxygen to be delivered to her home given she still needs it especially with her underlying COPD. The patient had acute pulmonary insufficiency following surgery due to atelectasis & COPD. Prior to her discharge she was able to be weaned from O2 intermittently but was still requiring O2 during sleep and some activity. Vital Signs Last value Range last 24hrs Temperature Temp: 36.8 ??C (98.2 ??F) Temp: [36.6 ??C (97.9 ??F)-36.8 ??C (98.2 ??F)] Heart Rate Heart Rate: 98 Heart Rate: -- Blood Pressure BP: 137/61 BP: (121-149)/(57-76) Respiratory Rate Resp: 18 Resp: [18-19] SpO2 SpO2: 96 % SpO2: [84 %-96 %] Pertinent Lab Data: Recent Labs 06/05/2231406/04/2291906/04/2233306/03/22358 WBC 12.2* 13.0* 12.9* 12.4* HGB 9.8* 10.1* 9.7* 10.6* HCT 30.9* 33.0* 30.4* 33.7* PLATELET 482* 410* 361* 317 Recent Labs 06/05/2231406/04/2233306/03/22358 NA 138 140 138 K 3.9 3.8 3.7 CL 105 106 104 CO2 25 27 25 BUN 7* 10 8 CREATININE 0.61* 0.57* 0.66* GLUCOSE 130 180 146 CALCIUM 8.3* 7.8* 7.9* MAGNESIUM 0.84 0.91 0.79 PHOS 3.5 2.5 1.9* Imaging: XR Fluoro No Rad <1Hr - OR Use Result Date: 06/01/2022 This exam is auto-finalizing. No interpretation was done. XR Chest PA & Lateral (Generic) Result Date: 06/04/2022 EXAMINATION: XR CHEST PA AND LATERAL (GENERIC) CLINICAL HISTORY: persistent post-op oxygen needs and cough h/o COPD; s/p open ventral hernia repair now POD#3 TECHNIQUE: PA and lateral views of the chest COMPARISON: 06/11/2020 FINDINGS: Bibasilar linear atelectasis. The remainder the lungs are clear. No pulmonary edema, effusion or pneumonia identified. No pneumothorax Bibasilar linear atelectasis Thank you for letting us participate in the care of this patient. If you are a health care provider and have any questions regarding this report, please contact the number below. For patients who have questions please contact the health rn intensive care unit that requested your imaging first. Electronically signed by: Desi Daniel MD, [facility] ([phone]), at 06/04/2022 9:15 AM SCAN DOC: CT SCAN Result Date: 05/21/2022 Ordered by an unspecified provider. SCAN DOC: TELEMETRY STRIPS Result Date: 06/03/2022 Ordered by an unspecified provider. SCAN DOC: TELEMETRY STRIPS Result Date: 06/03/2022 Ordered by an unspecified provider. SCAN DOC: TELEMETRY STRIPS Result Date: 06/02/2022 Ordered by an unspecified provider. SCAN DOC: TELEMETRY STRIPS Result Date: 06/02/2022 Ordered by an unspecified provider. SCAN DOC: TELEMETRY STRIPS Result Date: 06/02/2022 Ordered by an unspecified provider. SCAN DOC: TELEMETRY STRIPS Result Date: 06/01/2022 Ordered by an unspecified provider. SCAN DOC: TELEMETRY STRIPS Result Date: 06/01/2022 Ordered by an unspecified provider. Physical Exam: General: awake, alert, no acute distress HEENT: atraumatic, normocephalic, PERRLA, anicteric sclera CVS: RRR on monitor Pulm: unlabored breathing on 2L NC, oxygen saturation 91-94% Abd: soft, appropriately tender, non-distended, midline incision provena removed, LUIS drain removed and dressing placed over top of prior drain site : no lee Skin: warm, dry Ext: warm, well perfused, no jaundice, no cyanosis, no edema, right AKA Neuro: CN 2-12 grossly intact, nonfocal, moving all four extremities spontaneously Condition at discharge: Stable Mental Status: awake and alert, oriented x 3 Medications: Your Medications New Medications Dose Details * docusate sodium 100 mg capsule Commonly known as: Colace Take 1 capsule by mouth 2 times daily as needed for Constipation. 100 mg Refills: 0 * docusate sodium 100 mg capsule Commonly known as: Colace Take 1 capsule by mouth 2 times daily for 10 days. 100 mg Quantity: 20 capsule Refills: 0 methocarbamoL 750 mg tablet Commonly known as: Robaxin Take 1 tablet by mouth 3 times daily. 750 mg Quantity: 21 tablet Refills: 0 * polyethylene glycoL 17 gram/dose Powd Commonly known as: Miralax Take 17 g by mouth daily. 17 g Refills: 0 * polyethylene glycoL 17 gram oral powder packet Commonly known as: Miralax Take 17 g by mouth daily. Start taking on: June 06, 2022 17 g Quantity: 14 each Refills: 0 * This list has 4 medication(s) that are the same as other medications prescribed for you. Read thedirections carefully, and ask your doctor or other care provider to review them with you. Continued medications, unchanged Dose Details acetaminophen 500 mg tablet Commonly known as: Tylenol Take 2 tablets by mouth every 6 hours as needed for Pain or Fever. 1,000 mg Quantity: 30 tablet Refills: 1 albuteroL 90 mcg/actuation Hfaa INHALE TWO PUFFS BY MOUTH EVERY 4 TO 6 HOURS NEEDED FOR COUGH Refills: 0 aspirin 81 mg chewable tablet Take 81 mg by mouth daily. 81 mg Quantity: 30 tablet Refills: 3 atorvastatin 80 mg tablet Commonly known as: Lipitor Take 1 tablet by mouth every evening. 80 mg Quantity: 90 tablet Refills: 3 clopidogreL 75 mg tablet Commonly known as: Plavix Take 1 tablet by mouth daily. 75 mg Quantity: 90 tablet Refills: 3 Eliquis 5 mg tablet TAKE ONE TABLET [...] by mouth daily. 50 mg Refills: 0 melatonin 3 mg tablet Take 3 tablets by mouth nightly. 9 mg Refills: 0 multivitamin with minerals 9 mg iron-400 mcg Tab Commonly known as: Thera M Take 1 tablet by mouth daily. 1 tablet Refills: 0 pantoprazole EC [address] tablet Commonly known as: Protonix Take 1 tablet by mouth daily. Take one tablet by mouth daily for one month. Then you can stop. 40 mg Quantity: 30 tablet Refills: 0 Trelegy Ellipta 100-62.5-25 mcg Inhale 1 puff into the lungs daily. Generic drug: votgnxrcpbx-biylavvifvum-bnayrcpunm 1 puff Refills: 0 UNREVIEWED medications - Discuss With Your Provider Dose Details nitroGLYcerin 0.4 mg sublingual tablet Commonly known as: Nitrostat Place 1 tablet under the tongue every 5 minutes as needed for Chest pain. 0.4 mg Quantity: 25 tablet Refills: PRN traZODone 50 mg tablet Commonly known as: Desyrel Take 0.5 tablets by mouth nightly. 25 mg Quantity: 90 tablet Refills: 3 Disposition: Home Allergies: Allergies Allergen Reactions ??? Doxycycline Rash RADHA- unknown ??? Sulfa (Sulfonamide Antibiotics) Rash RADHA- unknown ??? Vicodin [Hydrocodone-Acetaminophen] Other (See Comments) RADHA- unknown Outpatient Services/Studies: No discharge procedures on file. Scheduled Appointments: Future Appointments and Orders Future Appointments and Orders Future Appointments Provider Department Dept Phone 06/15/2022 1:45 PM Whit Nance MD [place] [facility] [place] [facility] [phone] 06/29/2022 2:45 PM Whit Nance MD [place] [facility] [place] at: [facility] [phone] Future Orders Complete By Expires Home Oxygen [EQ184 Custom] As directed Process Instructions: Check with vendor to see if additional forms need to be completed. You must submit a copy of the following documents with this Order: 1 - Official results of Pulse Oximetry at Rest and with Exercise that are less than 180 days old 2 - Official results of Nocturnal testing (if performed) 3 - Signed and dated faxy-mg-foeh evaluation documenting the need for Oxygen Scheduling Instructions: Comments: Diagnosis: COPD with hypoxemia POC (Portable Oxygen Concentrator) Required: Yes If Yes, please indicate setting (ie. 1, 2, 3, 4 or 5): 1 Questions: Vendor Name/Contact information: community Surgical Rate (LPM): 2 Route: Nasal Hours per day of useage: 24 # months service is needed (99= lifetime): 3 Portable needed: Yes SPO2 performed on Room Air?: SPO2 performed with Supplemental Oxygen?: Nocturnal testing performed?: Oxygen Conserving Device (OCD) needed?: Instructions Given to Patient at Discharge: Patient Instructions Discharge Instructions - Open Ventral Hernia Repair Wound Care: ??? You have liquid dressing over your incisions, there is nothing to remove. You may shower in 24 hours. ??? When you shower, let soap and water run over incisions without scrubbing. Pat dry gently. ??? Some bruising around your incisions is normal. ??? Using ice packs will help minimize this swelling. ??? No swimming or soaking in water (ie. hot tubs or baths) for two weeks. ??? Your stitches will dissolve and do not need to be removed. ??? You have bacitracin which you can apply over your umbilicus Activity: ??? No heavy lifting more than 10 pounds for the next 6 weeks, then you may gradually lift heavier objects as tolerated by discomfort. Otherwise activity as tolerated by your comfort level. ??? Please use an abdominal binder when up and active until you are seen for your first follow up visit. You may discuss continued binder use with your surgical team at that time. When to Call Your Doctor: ??? Worsening redness or drainage from incision(s) lasting longer than 5 days after your surgery ??? Any foul-smelling drainage from the incision ??? Pain not controlled by pain medications ??? Persistent nausea or vomiting ??? Any fevers greater than 101.3 F For questions or concerns during business hours please call the Surgery Clinic at [phone] before 5 PM on weekdays. For questions after hours and on weekends please call the hospital rotary rock drilling machine operator at [phone] and ask for the General Surgery resident manufacturing automation engineer. They may not be familiar with your case so be prepared to identify yourself and the procedure you had done. Pain Management ??? Use heat or ice packs to your incisions. ??? Take Tylenol 1000mg (two extra strength tablets) up to every 6 hours. Do NOT take more than 4000mg every day. ??? Take Robaxin (methocarbamol) three times daily as needed. This is a muscle relaxer and can helprelieve pain after hernia surgery. ??? For pain not covered by Tylenol or Robaxin, take the prescription narcotic medicine: 5-10 mg every 4-6 hours ??? Take the medication exactly as it is prescribed and make sure to read all instructions that come with the medication. o Over the next couple of days you should be requiring less of this medication to control your pain, so that eventually you will not need any at all. You do not have to take all of the medication that was prescribed, if you have leftover pain medication this can be disposed of at a pharmacy or at your next follow up visit in the surgery clinic. o Taking more than the prescribed amount of medication or using with alcohol or other drugs can cause you to stop breathing resulting in coma, brain damage, or . o Opioids can slow reaction time, cause drowsiness, or cloud judgement. Do not drive for 8 hours after any dose of opioid pain medication if one was prescribed for you. o Using this drug may cause addiction. While addiction is more common in people with a personal or family history of addiction, it can occur in anyone. o Opioids are at risk of being diverted by anyone with access to your home. Opioids should be stored in a safe and secure place, such as a locked cabinet or safe. o Unused opioids should be disposed of appropriately. They may be returned to a take-back location,or mixed with a small amount of water and poured over an undesirable waste such as used coffee grounds or cat litter. o Please note that most pain medications can cause constipation. You may use a stool softener such as Miralax or Colace to prevent this. Both of these medications can be bought over the counter. Pain Tapering Instructions ??? Your pain should slowly and steadily diminish as you heal. If your pain level at the surgery site increases, you should call us. ??? It is normal for increased pain if you are overly active or you decrease your pain medication, but a significant and unexplained increase in pain should be discussed with your surgeon. ??? Pain medication is usually necessary for only 4-5 days postoperatively. It is important to havea plan for tapering off of pain medication. See below for tapering schedule sample. o As your pain improves, start to wean oxycodone first by taking fewer tablets and taking it less often. o Continue your Tylenol and Robaxin as you wean the narcotic. o Next, stop taking the Robaxin. o Wean the Tylenol last. Other Means for Pain Relief: ?? Learn deep breathing exercises or meditation to help you relax. ?? Reduce stress. ?? Your body produces natural endorphins from exercise which can help reduce pain. Even walking is considered exercise. Talk with your provider/surgical team about what exercises are appropriate for you to perform. ?? You may use a heating pad or apply ice to the painful area unless specifically discouraged by the surgical team. ?? Find ways to distract yourself from the pain. Follow-up: Please call [phone] (clinic number for appointments) to confirm or change the date and time ofyour appointment. Future Appointments Date Time Provider Department Center 06/15/2022 1:45 PM Whit Nance MD [facility] [place] 06/29/2022 2:45 PM Whit Nance MD [facility] General Instructions None Future Appointments and Orders Future Appointments and Orders Future Appointments Provider Department Dept Phone 06/15/2022 1:45 PM Whit Nance MD General Surgery [place] [facility] [place] at: [facility] 4l [phone] 06/29/2022 2:45 PM Whit Nance MD General Surgery at [facility] [place] at: [facility] 4L [phone] Future Orders Complete By Expires Home Oxygen [EQ184 Custom] As directed Process Instructions: Check with vendor to see if additional forms need to be completed. You must submit a copy of the following documents with this Order: 1 - Official results of Pulse Oximetry at Rest and with Exercise that are less than 180 days old 2 - Official results of Nocturnal testing (if performed) 3 - Signed and dated bgxz-hr-wkyy evaluation documenting the need for Oxygen Scheduling Instructions: Comments: Diagnosis: COPD with hypoxemia POC (Portable Oxygen Concentrator) Required: Yes If Yes, please indicate setting (ie. 1, 2, 3, 4 or 5): 1 Questions: Vendor Name/Contact information: community Surgical Rate (LPM): 2 Route: Nasal Hours per day of useage: 24 # months service is needed (99= lifetime): 3 Portable needed: Yes SPO2 performed on Room Air?: SPO2 performed with Supplemental Oxygen?: Nocturnal testing performed?: Oxygen Conserving Device (OCD) needed?: Signed: Ramona Arvizu MD 06/05/22 Primary [place] Physician: Nya Hernandez APRN [address] [facility] [id number] documented in this encounter Discharge Instructions * Patient Instructions* Ramona Arvizu MD - 06/04/2022 11:56 AM EDT Discharge Instructions - Open Ventral Hernia Repair Wound Care: You have liquid dressing over your incisions, there is nothing to remove. You may shower in 24 hours. When you shower, let soap and water run over incisions without scrubbing. Pat dry gently. Some bruising around your incisions is normal. Using ice packs will help minimize this swelling. No swimming or soaking in water (ie. hot tubs or baths) for two weeks. Your stitches will dissolve and do not need to be removed. You have bacitracin which you can apply over your umbilicus Activity: No heavy lifting more than 10 pounds for the next 6 weeks, then you may gradually lift heavier objects as tolerated by discomfort. Otherwise activity as tolerated by your comfort level. Please use an abdominal binder when up and active until you are seen for your first follow up visit. You may discuss continued binder use with your surgical team at that time. When to Call Your Doctor: Worsening redness or drainage from incision(s) lasting longer than 5 days after your surgery Any foul-smelling drainage from the incision Pain not controlled by pain medications Persistent nausea or vomiting Any fevers greater than 101.3 F For questions or concerns during business hours please call the Surgery Clinic at [phone] before 5 PM on weekdays. For questions after hours and on weekends please call the hospital rotary rock drilling machine operator at [phone] and ask for the General Surgery resident manufacturing automation engineer. They may not be familiar with your case so be prepared to identify yourself and the procedure you had done. Pain Management Use heat or ice packs to your incisions. Take Tylenol 1000mg (two extra strength tablets) up to every 6 hours. Do NOT take more than 4000mg every day. Take Robaxin (methocarbamol) three times daily as needed. This is a muscle relaxer and can help relieve pain after hernia surgery. For pain not covered by Tylenol or Robaxin, take the prescription narcotic medicine: 5-10 mg every 4-6 hours Take the medication exactly as it is prescribed and make sure to read all instructions that come with the medication. Over the next couple of days you should be requiring less of this medication to control your pain, so that eventually you will not need any at all. You do not have to take all of the medication that was prescribed, if you have leftover pain medication this can be disposed of at a pharmacy or at your next follow up visit in the surgery clinic. Taking more than the prescribed amount of medication or using with alcohol or other drugs can causeyou to stop breathing resulting in coma, brain damage, or . Opioids can slow reaction time, cause drowsiness, or cloud judgement. Do not drive for 8 hours after any dose of opioid pain medication if one was prescribed for you. Using this drug may cause addiction. While addiction is more common in people with a personal or family history of addiction, it can occur in anyone. Opioids are at risk of being diverted by anyone with access to your home. Opioids should be stored in a safe and secure place, such as a locked cabinet or safe. Unused opioids should be disposed of appropriately. They may be returned to a take-back location, or mixed with a small amount of water and poured over an undesirable waste such as used coffee grounds or cat litter. Please note that most pain medications can cause constipation. You may use a stool softener such asMiralax or Colace to prevent this. Both of these medications can be bought over the counter. Pain Tapering Instructions Your pain should slowly and steadily diminish as you heal. If your pain level at the surgery site increases, you should call us. It is normal for increased pain if you are overly active or you decrease your pain medication, but a significant and unexplained increase in pain should be discussed with your surgeon. Pain medication is usually necessary for only 4-5 days postoperatively. It is important to have a plan for tapering off of pain medication. See below for tapering schedule sample. As your pain improves, start to wean oxycodone first by taking fewer tablets and taking it less often. Continue your Tylenol and Robaxin as you wean the narcotic. Next, stop taking the Robaxin. Wean the Tylenol last. Other Means for Pain Relief: Learn deep breathing exercises or meditation to help you relax. Reduce stress. Your body produces natural endorphins from exercise which can help reduce pain. Even walking is considered exercise. Talk with your provider/surgical team about what exercises are appropriate for youto perform. You may use a heating pad or apply ice to the painful area unless specifically discouraged by the surgical team. Find ways to distract yourself from the pain. Follow-up: Please call [phone] (clinic number for appointments) to confirm or change the date and time ofyour appointment. Future Appointments Date Time Provider Department Center 06/15/2022 1:45 PM Whit Nance MD [facility] [place]/29/2022 2:45 PM Whit Nance MD [facility] documented in this encounter Medications at Time of Discharge Medication Sig Dispensed Refills Start Date End Date polyethylene glycoL (Miralax) 17 gram/dose Powder Take [...] Take 1 tablet by mouth daily. 06/28/2020 docusate sodium (Colace) 100 mg capsule Take 1 capsule by mouth 2 times daily for 10 days. 20 capsule 06/05/2022 06/15/2022 methocarbamoL (Robaxin) 750 mg tablet Take 1 tablet by mouth 3 times daily. 21 tablet 06/05/2022 06/29/2022 nitroGLYcerin (Nitrostat) 0.4 mg Tablet, Sublingual Place 1 tablet under the tongue every 5 minutes as needed for Chest pain. 25 tablet 06/03/2021 07/27/2022 acetaminophen (Tylenol) 500 mg Tablet Take 2 tablets by mouth every 6 hours as needed for Pain or Fever. 30 tablet 1 06/27/2020 06/15/2022 aspirin 81 mg Tablet, Chewable Take 81 mg by mouth daily. 30 tablet 3 06/28/2020 06/15/2022 melatonin 3 mg Tablet Take 3 tablets by mouth nightly. 06/27/2020 06/15/2022 documented as of this encounter Progress Notes * Mauro Fernandez RN - 06/05/2022 3:12 PM EDT Pt left [facility] [place] signing AMA paperwork. Pt expressed she could not wait any longer for portable O2 tank to be delivered and discharge paperwork/order. Pt then requested AMA paperwork and signed it.Pt was advised that it would be high risk and not safe for her to discharge without the proper supplies (portable O2 tank). Pt expressed an understanding. PIV had previously been removed. Pt is dressed and in the wheelchair in the brothers. Daughter and Pt exited the unit. Team made aware. * Whit Nance MD - 06/05/2022 2:57 PM EDT I was informed that Ms. Moya signed AMA paperwork with her RN after she had done so and left [facility], [place]. I tried to call her and she and her daughter in law were 25 minutes away already. A provider did not have the opportunity to discuss the AMA paperwork with her or what it means. When I called her and spoke to her she relayed that she was getting conflicting information about whether or not she needed oxygen and became anxious and felt she was rushed out. Our team was in contact with case management throughout the entire day today and yesterday trying to get home O2 set up with her. Unfortunately, this was turning out to be a slow process and holding up her discharge. We will ask case management to work to still arrange for an oxygen tank to be delivered to her home as I think she will benefit from this given her underlying COPD. Whit Nance MD * Mauro Fernandez RN - 06/05/2022 1:26 PM EDT Oxygen saturations with and without O2: 2 liters by NC in bed: %96 RA in bed :%95 Transfer/up in wheelchair, 2 liters NC: %96 Transfer/up in wheelchair, RA: %95 * Yuli Bateman RN - 06/04/2022 4:07 PM EDT The Patient has been provided a list of Home Health Agencies/DME vendors which serve their preferred geographic area. A letter describing our affiliations was reviewed with them and they were educated about their right to choose where referrals are placed. Patient requests referral to : [facility] (Resp Supplies) Central Intake: [place]: [place]: (They cover all of [place]) Expected date of discharge: 06/05. Referral routed to the Respite Provider for matching with agency/vendor and to provide any required information. * Ramona Arvizu MD - 06/04/2022 3:59 PM EDT Certification of Medical Necessity Form for Home Oxygen Eliza Moya is requiring HOME OXYGEN due to the diagnosis of hypoxia due to: COPD with inability to wean oxygen requirement postoperatively Oxygen is required: Continuously Oxygen saturations documented ?? Resting on Room Air: 87% Resting on 2 liters of O2: 93% ?? Activity on Room Air: 84% Activity on 2 liters of O2: 91% O2 Sats collected by: Nadia Ortez RN Date Sats Collected: 06/04/22 Mobility: Patient may be mobile. (Requiring portable oxygen) Rate: 2L Route: Nasal canula Vendor Ordered: [facility] (Resp Supplies) Central Intake: [place]: [place]: (They cover all of [place]) I anticipate that Eliza Moya will be discharged within 2 days. * Nadia Ortez RN - 06/04/2022 3:55 PM EDT Oxygen saturations documented Resting on Room Air: 87% Resting on 2 liters of O2: 93% Activity on Room Air: 84% Activity on 2 liters of O2: 91% * Charity Daniel OT - 06/04/2022 1:13 PM EDT Occupational Therapy Note Document Type: (P) contact Total Minutes, Occupational Therapy: (P) 0 Reason: Chart reviewed. RN cleared OT to see. Patient firmly requesting to being seen later 2/2 fatigue and stating not sleeping well last night. OT encouraged patient and educated pt on importance of mobilizing and circadian rhythm concerns, and pt still requested to be seen later with difficulty keeping eyes open. OT to attempt later as time allows. Pager: [phone] Charity Daniel OT 06/04/2022 Occupational Therapy Rehabilitation Department * Jerry Miller - 06/04/2022 1:01 PM EDT [employer] Encounter Note Patient Name: Eliza Moya : [id number] MR#: [id number] Admit Date: 06/01/2022 6:04 AM Hospital Day 3 days Narrative:Visited to introduce and assess acceptance of [employer] services. Assessment: Patient was awake, alert and in chair. Patient coping positively with stresses of illness/hospitalization at this time. Patient says that she is hoping to get better and has family care and support. Patient shared that she has 4 children who are supporting which she is thankful and grandchildren are source of courage and strength. Intervention and Outcome:Provided emotional, spiritual support and listening presence. [employer] services accepted. Conversation to build trusting relationship. Provided pastoral presence. Provided spiritual guidance. Provided prayers. Follow-up: yes Time in Direct Care:20 Mins Jerry Miller 06/04/2022 * Steph Benítez PA - 06/04/2022 8:15 AM EDT Minimally Invasive Surgery Inpatient Progress Note ID: Eliza Moya is a 57 y.o. female with h/o COPD, PAD s/p right AKA, hypertension, CAD s/p PCI(05/2021), a fib, perforated duodenal ulcer in 2020 s/p multiple ex-laps and Donavan-en-Y duodenojejunostomy who subsequently developed a midline incisional hernia. She presents for hernia repair. Hospital Day: 3 Procedures: open ventral hernia repair now 3 Days Post-Op Subjective & 24hr events: ?? Epidural removed yesterday around 1330, pain well controlled on scheduled and PRN medications since ?? Lee removed yesterday, 675 cc UOP since ?? 200 mL serosanguinous output from drain, Prevena in place ?? Vital signs stable on 2L NC, started scheduled albuterol nebs in addition to hospital-equivalentdoses of home inhalers; not seen by RT yesterday, pulling ~500 on IS ?? Up with PT/OT yesterday evening ?? Sleeping poorly d/t disturbances from roommate ?? Tolerating regular diet with no N/V ?? +BM, +flatus ?? 1 point drop in hgb since first dose of home Eliquis yesterday evening O: Last value Range last 24hrs Temperature Temp: 36.8 ??C (98.2 ??F) Temp: [36.4 ??C (97.5 ??F)-36.8 ??C (98.2 ??F)] Heart Rate Heart Rate: 98 Heart Rate: [98] Blood Pressure BP: 135/78 BP: (110-139)/(63-78) Respiratory Rate Resp: 18 Resp: [17-20] SpO2 SpO2: 94 % SpO2: [91 %-97 %] 06/03 0701 - 06/04 0700 In: 1682 [P.O.:800; I.V.:882] Out: 2124 [Urine:192] Intake and Output: I/O last 3 completed shifts: In: 1772.7 [P.O.:800; I.V.:882; Other:90.7] Out: 3570 [Urine:3325; Other:245] I/O this shift: In: 300 [P.O.:300] Out: 0 Current Medications: Current Facility-Administered Medications Medication Dose Route Frequency Provider Last Rate Last Admin ??? calcium carbonate (TUMS) chewable tablet 1,000 mg 1,000 mg Oral BID Steph Benítez PA ??? bisacodyL (Dulcolax) suppository 10 mg 10 mg Rectal Daily Whit Nance MD ??? methocarbamoL (Robaxin) tablet 750 mg 750 mg Oral TID Steph Benítez PA 750 mg at ??? lidocaine (Lidoderm) 5% patch 1 patch 1 patch Transdermal Q24H Steph Benítez PA ??? albuteroL (Proventil, Ventolin) (2.5 mg/3 mL) (0.083 %) nebulizer solution 2.5 mg 2.5 mg Nebulization 4 Times Daily Whit Nance MD 2.5 mg at 06/03/222030 ??? oxyCODONE (Roxicodone) tablet 5-10 mg 5-10 mg Oral Q4H PRN Steph Benítez PA 10 mg at 06/04/22 0118 ??? acetaminophen (Tylenol) tablet 975 mg 975 mg Oral Q6H LEMUEL Steph Benítez PA 975 mg at 06/04/22 0338 ??? polyethylene glycoL (Miralax) packet 17 g 17 g Oral Daily Steph Benítez PA 17 g at 06/03/22 1556 ??? benzonatate (Tessalon) capsule 100 mg 100 mg Oral TID Whit Nance MD 100 mg at 06/03/222030 ??? budesonide-formoteroL (Symbicort) 80-4.5 mcg/actuation inhaler 2 Inhalation 2 Inhalation Inhalation 2 times per day Steph Benítez PA 2 Inhalation at 06/03/222031 ??? tiotropium bromide (Spiriva Respimat) 2.5 mcg/actuation inhaler 2 puff 2 puff Inhalation Daily Steph Benítez PA 2 puff at 06/03/22 0816 ??? hydrOXYzine (Atarax) tablet 10 mg 10 mg Oral 4 Times Daily PRN Whit Nance MD 10 mg at 06/04/22 0338 ??? aspirin chewable tablet 81 mg 81 mg Oral Daily Ramona Arvizu MD 81 mg at 06/03/22 1408 ??? melatonin tablet 9 mg 9 mg Oral Nightly Ramona Arvizu MD 9 mg at 06/03/222030 ??? ipratropium-albuteroL (Duoneb) 0.5 mg-3 mg(2.5 mg base)/3 mL nebulizer solution 3 mL 3 mL Nebulization Q4H PRN Ramona Arvizu MD 3 mL at 06/04/22 0602 ??? atorvastatin (Lipitor) tablet 80 mg 80 mg Oral QPM Ramona Arvizu MD 80 mg at 06/03/22 1635 ??? furosemide (Lasix) tablet 20 mg 20 mg Oral Daily Ramona Arvizu MD 20 mg at 06/03/22 0823 ??? levothyroxine (Synthroid) tablet 50 mcg 50 mcg Oral QAM Ramona Arvizu MD 50 mcg at ??? pantoprazole EC (Protonix) tablet 40 mg 40 mg Oral Daily Ramona Arvizu MD 40 mg at ??? traZODone (Desyrel) tablet 25 mg 25 mg Oral Nightly Ramona Arvizu MD 25 mg at 06/03/222030 ??? sodium chloride 0.9 % (flush) (BD PosiFlush Normal Saline 0.9) flush 5 mL 5 mL Intravenous BID Ramona Arvizu MD 5 mL at 06/03/222031 ??? sodium chloride 0.9 % (flush) (BD PosiFlush Normal Saline 0.9) flush 5-20 mL 5-20 mL Intravenous Q1 Min PRN Ramona Arvizu MD ??? lidocaine (Xylocaine) 1% (10 mg/mL) injection 3 mg 0.3 mL Subcutaneous Once PRN Ramona Arvizu MD ??? naloxone (Narcan) (0.4 mg/mL) injection 0.2 mg 0.2 mg Intravenous Q1 Min PRN Ramona Arvizu MD ??? docusate sodium (Colace) capsule 100 mg 100 mg Oral BID Ramona Arvizu MD 100 mg at ??? gabapentin (Neurontin) capsule 300 mg 300 mg Oral BID Rena Leon MD 300 mg at 06/03/222029 Physical Exam: General: awake, alert, no acute distress HEENT: atraumatic, normocephalic, PERRLA, anicteric sclera CVS: RRR on monitor Pulm: unlabored breathing on 2L NC, oxygen saturation 91-94% Abd: soft, appropriately tender, non-distended, midline incision with Prevena in place, LUIS drain with serosanguinous output in bulb : no lee Skin: warm, dry Ext: warm, well perfused, no jaundice, no cyanosis, no edema, right AKA Neuro: CN 2-12 grossly intact, nonfocal, moving all four extremities spontaneously Recent Labs 06/04/22 03306/03/22 03506/02/22 0938 06/02/22 0347 06/01/22 1538 WBC 12.9* 12.4* 12.8* 14.2* 19.2* HGB 9.7* 10.6* 10.9* 10.9* 13.3 HCT 30.4* 33.7* 34.1* 34.4* 41.9 PLATELET 361* 317 400* 424* 430* Recent Labs 06/04/22 0334 06/03/22 0359 06/02/22 0938 06/02/22 0347 06/01/22 1538 NA 140 138 135 135 141 K 3.8 3.7 3.7 4.1 4.9 CL 106 104 101 101 106 CO2 27 25 25 24 23 BUN 10 8 12 15 16 CREATININE 0.57* 0.66* 0.64* 0.61* 0.73 GLUCOSE 180 146 122 142 150 CALCIUM 7.8* 7.9* 7.5* 7.6* 8.0* MAGNESIUM 0.91 0.79 -- 0.76 0.86 PHOS 2.5 1.9* -- 3.1 3.4 New Imaging: None Assessment: Eliza Moya is a 57 y.o. female with complex abdominal surgical history including multiple ex-laps and Donavan-en-Y with duodenojejunostomy in 2020, and midline incisional hernia who is now 3 Days Post-Op s/p open ventral hernia repair with mesh. Pain well controlled since epidural removed yesterday, voiding adequately since Lee removal; given 500 cc bolus early this morning due to low UOP with appropriate increase in UOP since. Was able toget up and participate in care with therapy yesterday evening as well. Her current barriers to discharge are persistent post-op oxygen requirements and slow ROBF; she is passing regular flatus but has not had a bowel movement since prior to surgery. Her hemoglobin dropped one point this morning after Eliquis was restarted yesterday evening. Holding AM dose pending repeat CBC this morning. Plan for today - portable CXR, pulm consult once CXR is done, dulcolax suppository. Possible discharge tomorrow pending the above issues. I don't anticipate she will need services going home, tentative plan to remove both Prevena and drain prior to discharge. Plan: Neuro/Pain: pain control with scheduled Tylenol, PRN oxycodone, lidocaine patch, Robaxin, gabapentin and trazodone per home meds, nightly melatonin CV: HDS, will continue to monitor, home aspirin, Lipitor and Lasix per home meds, hold home Eliquispending repeat CBC at 0900 Pulm: incentive spirometer, OOB as tolerated, Tessalon for cough, Symbicort and Spiriva to substitute for home Trelegy Ellipta inhaler, albuterol nebs QID, Duoneb PRN, CXR, pulmonology consult FEN/GI: regular diet, HLIV, Colace, Miralax, suppository, daily Tums for calcium repletion Renal/: strict I/Os, urine output low end of adequate and concentrated per nursing note, given 500 cc bolus this morning, bladder scan this morning Wound/ID: Prevena, routine drain and wound care, record drain output qshift Heme: 1 point drop in hgb this morning after PM dose of Eliquis last night, hold home Eliquis pending repeat CBC at 0900 Endocrine: Synthroid per home meds Prophylaxis: SCDs, PPI Dispo: floor status, full code, discharge pending hospital course Signed: CARLEE Castro General Surgery 8:56 AM 06/04/22 MIS service pager: [phone] Addendum: Hemoglobin stable at 10.1 on 0920 recheck, likely dilutional and not due to active bleeding. CARLEE Castro 12:07 PM 06/04/22 * Luis Schmitt, PT - 06/03/2022 5:06 PM EDT Physical Therapy Evaluation Patient profile: Eliza Moya is a 57 y.o. right handed female admitted on 06/01/2022. Patient presented to same day surgery with a large incisional hernia. She underwent 06/01/22 incisional herniarepair. She had post op issues with nausea, cough, pain, and SVT. She is being managed on . Epidural and lee out on 06/03/22. PMHx includes Right AKA, COPD, HTN, and CAD. Patient with the following active problems: Past Medical History: Diagnosis Date ??? CAD (coronary artery disease) ??? COPD (chronic obstructive pulmonary disease) ??? HTN (hypertension) ??? Hypothyroid ??? PAD (peripheral artery disease) Active Non-Hospital Problems Diagnosis ??? CAD (coronary artery disease) ??? COPD (chronic obstructive pulmonary disease) ??? HTN (hypertension) ??? Hypothyroid ??? PAD (peripheral artery disease) ??? NSTEMI (non-ST elevated myocardial infarction) ??? Perforated viscus Past Surgical History: Procedure Laterality Date ??? CT PERITONEAL DRAINAGE 05/27/2020 CT Guided Drain Peritoneal 05/27/2020 [facility] RAD CAT SCAN ??? CT PERITONEAL DRAINAGE 05/27/2020 CT Guided Drain Peritoneal 05/27/2020 [facility] RAD CAT SCAN ??? CT PERITONEAL DRAINAGE 05/27/2020 CT Guided Drain Peritoneal 05/27/2020 [facility] RAD CAT SCAN ??? IR CHEST TUBE PLACEMENT BILATERAL 05/15/2020 IR Chest Tube Placement Bilateral 05/15/2020 Ricky Hollis MD [facility] INTERVENTIONL RAD ??? PRO AMPUTATE THIGH, OPEN CIRCULAR Right 05/11/2020 AMPUTATION, ABOVE-KNEE, OPEN, GUILLOTINE (WRVU 10.98) performed by Christine Montgomery MD at [facility] OR ??? PRO AMPUTATE THIGH, SECONDRY CLOSUR Right 06/13/2020 AMPUTATION, ABOVE-KNEE, SECONDARY CLOSURE OR SCAR REVISION (WRVU 7.29) performed by Christine Montgomery MD at [facility] OR ??? PRO CHOLECYSTOENTER+DONAVAN-EN-Y+GASTROENT N/A 05/12/2020 @DONAVAN-EN-Y WITH GASTROENTEROSTOMY (WRVU 24.21) performed by Meme Torres MD at [facility] OR ??? PRO EXPLORATION OF ABDOMEN N/A 05/11/2020 @EXPLORATORY LAPAROTOMY, WITH/WITHOUT BIOPSY(S) (WRVU 12.54) performed by Meme Torres MD at [facility] OR ??? PRO GASTROJEJUNOSTOMY N/A 05/12/2020 @GASTROJEJUNOSTOMY (WRVU 22.53) performed by Meme Torres MD at [facility] OR ??? PRO MUSCLE-SKIN FLAP, TRUNK N/A 06/01/2022 FLAP, MYOCUTANEOUS OR FASCIOCUTANEOUS, TRUNK (WRVU 23) performed by Whit Nance MD at [facility] OR ??? PRO REOPEN RECENT ABD EXPLORATORY N/A 05/12/2020 @EXPLORATORY LAPAROTOMY, REOPENING OF RECENT (WRVU 17.63) performed by Meme Torres MD at [facility] OR ??? PRO REOPEN RECENT ABD EXPLORATORY Midline 05/16/2020 @EXPLORATORY LAPAROTOMY, REOPENING OF RECENT (WRVU 17.63) performed by Nakul Vega MD at [facility] MAIN OR ??? PRO REOPEN RECENT ABD EXPLORATORY Midline 05/18/2020 @EXPLORATORY LAPAROTOMY, REOPENING OF RECENT (WRVU 17.63) performed by Marco Silver MD at [facility] OR ? ? PRO REPAIR AA HERNIA INITIAL > 10 CM REDUCIBLE N/A 06/01/2022 REPAIR ANT. ABDOMINAL HERNIA(S) (IE, EPIGASTRIC, INCISIONAL, VENTRAL, UMBILICAL, SPIGELIAN), INITIAL, W-WO MESH; GREATER THAN 10 CM, REDUCIBLE (WRVU 13.94) performed by Whit Nance MD at [facility] MAIN OR ??? PRO REPAIR PERF DUOD/JIMENA ULC-WND/INJ N/A 05/11/2020 GASTRORRHAPHY, SUTURE OF PERFORATED, ULCER, WOUND, INJURY (WRVU 22.83) performed by Meme Torres MD at [facility] OR ??? PRO RESECT SMALL INTEST, SINGL RESEC/ANAS N/A 05/12/2020 @BOWEL RESECTION, SMALL INTESTINE SINGLE ANASTOMOSIS (WRVU 20.82) performed by Meme Torres MD at [facility] MAIN OR ??? PRO SUTURE ABD WALL-DEHIS/EVISCER Midline 05/20/2020 @SUTURE, SECONDARY, OF ABD WALL FOR EVISCERATION OR DEHISCENCE (WRVU 12.41) performed by Antonio Akbar MD at [facility] OR ? ? PRO UNLISTED PX ABD PRTM&OMENTUM N/A 05/20/2020 SUTURE OMENTUM (WRVU 11.1) performed by Antonio Akbar MD at [facility] OR ??? PRO UNLISTED PX ABDOMEN MUSCULOSKELETAL SYSTEM Midline 05/16/2020 WOUND CLOSURE, ABDOMINAL, PARTIAL W/ WOUND VAC (WRVU 6.39) performed by Nakul Vega MD at [facility] OR ??? PRO UPPER GI ENDOSCOPY, BIOPSY N/A 11/25/2020 EGD WITH BIOPSY (WRVU 2.49) performed by Kervin Rubio MD at [facility] ENDOSCOPY Social History: Home set-up: Lives with son and daughter in law, and daughter in law is home to assist as needed. 2level home, stays on one level. Sleeps on a bed in the living room. Bathroom Set-up: 1/2 bath down stairs, takes a sponge bath, tub shower upstairs. Stairs: ramp to enter, stairs to upstairs. Baseline Mobility: has been functioning from wheelchair level for at least 3 months, independent with stand pivot transfers uses a walker at times. She likes puzzles and games on her phone and TV. Equipment at home: rolling walker, wheelchair, commode, prosthesis, shower chair, wheelchair cushion. Fall history: reports none Precautions/Special Considerations: Right AKA, abdominal incision with wound vac. Fall risk. Obesity. Lines: IV LUE, wound vac, LUIS drain Activity Orders: up with assistance, abdominal binder -Wear when ambulating/mobilizing and as oftenas tolerated otherwise Diet: regular diet Mobility and Positioning Recommendations: ?? Pt. to utilize walker to stand and pivot with contact guard to min assist of staff anesthetist. ?? Please encourage up to chair for meal times as able. ?? Encourage ROM and repositioning and breathing ther-ex during the day. Subjective: ???I don't have a chance to fall my daughter in law is always there.?? Objective: Pt seen for evaluation today. MD staff rounded during session. Patient had binder off when PT and MD arrived, MD asked to clarify use of binder. Pain: Reports abdominal discomfort and some discomfort with binder, MD rounded during session and aware and updated orders for binder use Vital Signs: Heart Rate: 98 BP: (see RN flow sheets) SpO2: 97 % O2 Flow Rate (L/min): 2 L/min O2 Device: Nasal cannula Congested cough today. Mental Status: alert, oriented to person, place, and time Skin: Right AKA with some edema, IV LUE, abdominal incision with wound vac, LUIS drain. Musculoskeletal: ROM: Right AKA moves WFLs, LLE WFLs and BUEs WFLs Strength: appears function in UEs and LLE Sensation: pt reported no issues today, but not thoroughly assessed. Bed Mobility: Supine to Sit: to left side of bed with HOB elevated with min assist Sit to Supine: to left side of bed with min assist for LLE management Transfers: Sit to Stand: from bed to walker with contact guard Stand to Sit: with contact guard Scooted to left up the bed with walker with contact guard a few steps. Gait: To left up the bed with walker a few steps with contact guard, pivoted on left foot. Balance: Sitting Static: steady Standing Static: steady with walker with contact guard Education: patient has been educated on Bed mobility, Transfers, Breathing exercises, Positioning, Safety , Precautions/protocol, Equipment use, Activity pacing/Energy conservation, Role of therapy, Balance, Discharge planning and use of the abdominal binder. and verbalizes understanding. Patient status, treatment, and mobility recommendations discussed with nursing. Ther-ex: reviewed AROM and deep breathing, and IS use to 250ml with cues. Assessment: Eliza Moya was seen today for physical therapy evaluation. Patient presenting friendly, but with some abdominal discomfort, and needed encouragement and education from PT and MD on need to wear abdominal binder for incisional support. She also had a congested cough at times today. She mobilized fairly well with one assist, and reports she has a very supportive daughter in law at home, and that she plans to return home with family support and home services set up would recommendhome PT and RN at this time, and 28/09 support at home of family. Will continue PT to safely progress patient's mobility and function while she remains in-house working toward a safe d/c plan. Discharge Recommendations: Based on the current findings, Anticipated Discharge Disposition (PT): home with home health, home with supervision (home with 28/09 family support and home services) when medically ready for hospitaldischarge. Consult Recommendations: No other consults recommended at this time. Equipment needs: Anticipated Equipment Needs at Discharge (PT): to be determined Goals: To be achieved by 06/22/22: 1. Pt. to demonstrate knowledge of safety limitations and precautions and will appropriately request assistance for functional activities and to mobilize. 2. Pt. to demonstrate understanding of AROM and breathing exercises. 3. Pt. to perform bed mobility with supervision while avoiding abdominal strain. 4. Pt. to perform Sit<->stand and Stand Pivot transfers with supervision using a front wheeled walker. 5. Pt to propel wheelchair x 200 ft. using BUEs and LLE with supervision and verbal cues for increased safe mobility. 6. Family or caregiver to demonstrate understanding of therapeutic interventions to support the care of the patient. Plan: Therapy Frequency (PT): 2-4 times/wk for therapy including balance training, bed mobility training, gait training, home exercise program, manual therapy techniques, motor coordination training,neuromuscular re-education, orthotic fitting and training, patient/family education, postural re-education, prosthetic fitting/training, range of motion, stair training, strengthening, stretching, transfer training, wheelchair managment/propulsion training and d/c planning, functional mobility training, selfcare and home management training. 2017 PT Evaluation Code Rationale: ?? Diagnosis & Pertinent Co-Morbidities, personal factors, and present illness affecting Plan of Care: (see above); Additional personal factors or co- morbidities that impact plan: ?? Total # of Factors: 0 1-2 3+ x ?? Examination of body system impairments, functional limitations and behaviors, and/or participation restrictions. Addressing 1-2 elements Addressing 3 + elements x Addressing 4 + elements ?? Clinical presentation: See assessment above. Stable/Uncomplicated Evolving/Fluctuating Symptoms Unstable/Unpredictable x ?? Clinical decision making of moderate complexity based on pt's functional performance as outlinedin this evaluation. Time IN / OUT: 1635 to 1706 Total Minutes, Physical Therapy: 31 Billing Code: lashawn SCHMITT, PT Pager: [phone] Physical Therapy Inpatient Rehabilitation Department * Steph Benítez PA - 06/03/2022 9:19 AM EDT Minimally Invasive Surgery Inpatient Progress Note ID: Eliza Moya is a 57 y.o. female with h/o COPD, PAD s/p right AKA, hypertension, CAD s/p PCI(05/2021), a fib, perforated duodenal ulcer in 2020 s/p multiple ex-laps and Donavan-en-Y duodenaljejunostomy who subsequently developed a midline incisional hernia. She presents for hernia repair Hospital Day: 2 Procedures: open ventral hernia repair, abthera placement, now 2 Days Post-Op Subjective & 24hr events: ?? Reporting increased pain on AM rounds, although patient attributes this to poor sleep, rolling around, repositioning, etc; hydromorphone removed from PCEA yesterday d/t pruritis, now only delivering Bupivacaine 0.1%, pruritis resolved ?? Vital signs stable on 2L NC, Trelegy Ellipta equivalents restarted yesterday, pulling ~750 on IS ?? Tolerating full liquid diet with no N/V ?? -BM, +flatus ?? Lee in place, making robust urine - 1.5 mL/kg/hr ?? Abthera in place, LUIS drain with ~108mL serosang output overnight O: Last value Range last 24hrs Temperature Temp: 37.1 ??C (98.8 ??F) Temp: [36.7 ??C (98.1 ??F)-37.7 ??C (99.8 ??F)] Heart Rate Heart Rate: 87 Heart Rate: -- Blood Pressure BP: 120/70 BP: (117-127)/(61-70) Respiratory Rate Resp: 22 Resp: [15-22] SpO2 SpO2: 93 % SpO2: [90 %-100 %] 06/02 0701 - 06/03 0700 In: 1055.1 [P.O.:920] Out: 3368 [Urine:3260] Intake and Output: I/O last 3 completed shifts: In: 1838.5 [P.O.:920; I.V.:702.5; Other:216] Out: 3973 [Urine:3760; Other:213] I/O this shift: In: - Out: 225 [Urine:200; Other:25] Current Medications: Current Facility-Administered Medications Medication Dose Route Frequency Provider Last Rate Last Admin ??? potassium phosphate 15 mMol in sodium chloride 0.9% 250 mL infusion 15 mmol Intravenous Q4H Ramona Arvizu MD 62.5 mL/hr at 06/03/22 0657 15 mmol at 06/03/22 0657 ??? methocarbamoL (Robaxin) tablet 750 mg 750 mg Oral TID Steph Benítez PA 750 mg at ??? lidocaine (Lidoderm) 5% patch 1 patch 1 patch Transdermal Q24H Steph Benítez PA ??? BUpivacaine (pf) 0.1 % in sodium chloride 0.9% 250 mL epidural (mixture) Epidural Epidural Infusion Crystal Francois MD Rate Change at 06/03/22 0831 And ??? Neuraxial/Epidural shift total and settings verification Epidural 2 Times Daily- Neuraxial Shift Total Crystal Francois MD And ??? Neuraxial (Epidural) pham Epidural Continuous PRN Crystal Francois MD ??? benzonatate (Tessalon) capsule 100 mg 100 mg Oral TID Whit Nance MD 100 mg at 06/03/22 0820 ??? budesonide-formoteroL (Symbicort) 80-4.5 mcg/actuation inhaler 2 Inhalation 2 Inhalation Inhalation 2 times per day Steph Benítez PA 2 Inhalation at 06/03/22 0818 ??? tiotropium bromide (Spiriva Respimat) 2.5 mcg/actuation inhaler 2 puff 2 puff Inhalation Daily Steph Benítez PA 2 puff at 06/03/22 0816 ??? naloxone (Narcan) (0.4 mg/mL) injection 0.2 mg 0.2 mg Intravenous Q1 Min PRN Crystal Francois MD ??? hydrOXYzine (Atarax) tablet 10 mg 10 mg Oral 4 Times Daily PRN Whit Nance MD 10 mg at 06/02/22 1747 ??? aspirin chewable tablet 81 mg 81 mg Oral Daily Ramona Arvizu MD 81 mg at 06/02/22 0942 ??? melatonin tablet 9 mg 9 mg Oral Nightly Ramona Arvizu MD 9 mg at 06/02/22 2110 ??? ipratropium-albuteroL (Duoneb) 0.5 mg-3 mg(2.5 mg base)/3 mL nebulizer solution 3 mL 3 mL Nebulization Q4H PRN Ramona Arvizu MD ??? atorvastatin (Lipitor) tablet 80 mg 80 mg Oral QPM Ramona Arvizu MD 80 mg at 06/02/22 1607 ??? furosemide (Lasix) tablet 20 mg 20 mg Oral Daily Ramona Arvizu MD 20 mg at 06/03/22 0823 ??? levothyroxine (Synthroid) tablet 50 mcg 50 mcg Oral QAM Ramona Arvizu MD 50 mcg at 628 ??? pantoprazole EC (Protonix) tablet 40 mg 40 mg Oral Daily Ramona Arvizu MD 40 mg at ??? traZODone (Desyrel) tablet 25 mg 25 mg Oral Nightly Ramona Arvizu MD 25 mg at 06/02/222109 ??? sodium chloride 0.9 % (flush) (BD PosiFlush Normal Saline 0.9) flush 5 mL 5 mL Intravenous BID Ramona Arvizu MD 5 mL at 06/02/222109 ??? sodium chloride 0.9 % (flush) (BD PosiFlush Normal Saline 0.9) flush 5-20 mL 5-20 mL Intravenous Q1 Min PRN Ramona Arvizu MD ??? lidocaine (Xylocaine) 1% (10 mg/mL) injection 3 mg 0.3 mL Subcutaneous Once PRN Ramona Arvizu MD ??? naloxone (Narcan) (0.4 mg/mL) injection 0.2 mg 0.2 mg Intravenous Q1 Min PRN Ramona Arvizu MD ??? docusate sodium (Colace) capsule 100 mg 100 mg Oral BID Ramona Arvizu MD 100 mg at ??? albuteroL (Proventil, Ventolin) (2.5 mg/3 mL) (0.083 %) nebulizer solution 2.5 mg 2.5 mg Nebulization Q4H PRN Miley Maldonado MD 2.5 mg at 06/02/22 0101 ??? acetaminophen (Tylenol) tablet 975 mg 975 mg Oral Q8H Rena Leon MD 975 mg at 06/03/2223 ??? gabapentin (Neurontin) capsule 300 mg 300 mg Oral BID Rena Leon MD 300 mg at 06/03/22 0823 Physical Exam: General: awake, alert, no acute distress HEENT: atraumatic, normocephalic, PERRLA, anicteric sclera CVS: RRR on monitor Pulm: unlabored breathing on 2L NC Abd: soft, appropriately tender, non-distended, midline incision with Abthera in place, LUIS drain with serosanguinous output in bulb : lee in place with dark yellow urine in gravity bag Skin: warm, dry Ext: warm, well perfused, no jaundice, no cyanosis, no edema, right AKA Neuro: CN 2-12 grossly intact, nonfocal, moving all four extremities spontaneously Recent Labs 06/03/22 0359 06/02/22 0938 06/02/22 0347 06/01/22 1538 WBC 12.4* 12.8* 14.2* 19.2* HGB 10.6* 10.9* 10.9* 13.3 HCT 33.7* 34.1* 34.4* 41.9 PLATELET 317 400* 424* 430* Recent Labs 06/03/22 0359 06/02/22 0938 06/02/22 03406/01/22 1538 NA 138 135 135 141 K 3.7 3.7 4.1 4.9 CL 104 101 101 106 CO2 25 25 24 23 BUN 8 12 15 16 CREATININE 0.66* 0.64* 0.61* 0.73 GLUCOSE 146 122 142 150 CALCIUM 7.9* 7.5* 7.6* 8.0* MAGNESIUM 0.79 -- 0.76 0.86 PHOS 1.9* -- 3.1 3.4 New Imaging: None Assessment: Eliza Moya is a 57 y.o. female with complex abdominal surgical history including multiple ex-laps and Donavan-en-Y with duodenojejunostomy in 2020, and midline incisional hernia who is now 2 Days Post-Op s/p open ventral hernia repair with mesh. Dilaudid removed from PCEA yesterday, now delivering plain 0.1% Bupivicaine. Plan for epidural removal and transition to PO/IV analgesia today, as well as Lee removal once epidural is out. Pruritisresolved. Tolerating full liquids, still passing gas, no BM yet post-op, robust UOP via Lee. Maintain drain and Abthera. Still requiring 2L O2, not on home O2. Will try albuterol neb treatment after AM dose Spiriva/Simbicort. Replete lytes. Hgb stable. Possibly home tomorrow vs Wednesday. Plan: Neuro/Pain: pain control with scheduled Tylenol, PCEA removal planned for today, one time dose oxycodone in anticipation of removal, lidocaine patch, Robaxin, appreciate APS care and reccs, gabapentin and trazodone per home meds, nightly melatonin CV: HDS, will continue to monitor, hold aspirin prior to epidural removal, Lipitor and Lasix per home meds Pulm: incentive spirometer, OOB as tolerated, Tessalon for cough, Symbicort and Spiriva to substitute for home Trelegy Ellipta inhaler, albuterol and Duoneb PRN FEN/GI: regular diet, HLIV, Colace, replete lytes Renal/: strict I/Os, urine output robust, maintain lee for now Wound/ID: Prevena, routine drain and wound care, record drain output qshift Heme: hgb stable Endocrine: Synthroid per home meds Prophylaxis: SCDs, PPI Dispo: floor status, full code, discharge pending hospital course Signed: CARLEE Castro [facility] Surgery 9:30 AM 06/03/22 MIS service pager: [phone] Associated attestation - Whit Nance MD - 06/03/2022 4:05 PM EDT I have discussed the patient with the PA and reviewed the history as well as the pertinent laboratory data and imaging. The assessment and plan were formulated in discussion with me and I agree with them as documented. Whit Nance MD * Crystal Francois MD - 06/03/2022 9:15 AM EDT Acute Pain Medicine Service - Epidural Daily Management VITAL SIGNS: Visit Vitals BP 120/70 (BP Location (NBP): Right arm, Patient Position: Lying) Pulse 87 Temp 37.1 ??C (98.8 ??F) (Oral) Resp 22 Ht 160 cm (5' 3) Wt 90.7 kg (200 lb) SpO2 93% BMI 35.43 kg/m?? Body mass index is 35.43 kg/m??. Labs: WBC Date Value Ref Range Status 06/03/2022 12.4 (H) 4.0 - 9.5 x10(3)/mcL Final Hemoglobin Date Value Ref Range Status 06/03/2022 10.6 (L) 11.7 - 15.5 g/dL Final Hematocrit Date Value Ref Range Status 06/03/2022 33.7 (L) 35.7 - 45.8 % Final Platelets Date Value Ref Range Status 06/03/2022 317 145 - 357 x10(3)/mcL Final PT Date Value Ref Range Status 05/28/2020 13.0 (H) 9.4 - 12.5 sec Final PTT Date Value Ref Range Status 05/28/2020 42 (H) 25 - 37 sec Final Comment: The PTT is NOT appropriate for heparin monitoring. Use the Anti-Xa level for heparin monitoring (HEP UFH) or LMWH monitoring (HEP LMW). A PTT less than 37 seconds generally indicates adequate hemostasis. Operative Procedures: Procedure(s): REPAIR ANT. ABDOMINAL HERNIA(S) (IE, EPIGASTRIC, INCISIONAL, VENTRAL, UMBILICAL, SPIGELIAN), INITIAL, W-WO MESH; GREATER THAN 10 CM, REDUCIBLE (WRVU 13.94) MODIFIER MESH,BARD SOFT MESH FLAP, MYOCUTANEOUS OR FASCIOCUTANEOUS, TRUNK (WRVU 23) MODIFIER MESH IMPLANTATION APS Opioid Administration Hx All administrations since 06/02/2022 are shown below each listed medication. Other Order Route Rate Dose Action Date oxyCODONE (Roxicodone) tablet 5 mg Oral 5 mg Given 06/03/2022 HYDROmorphone (pf) (10 mcg/mL), BUpivacaine (pf) 0.1% in sodium chloride 0.9% 250 mL epidural Epidural 6 mL/hr 250 mL New Bag 06/02/2022 APMS EPIDURAL ROUNDIN06/03/2022 9:15 AM Average Numeric Rating Pain Score (0-10): 5 Post-Op Day: 2 Epidural Day: 3 Epidural Infusion (solution): BUpivacaine 0.1% Epidural Infusion Rate: 3 mL per hour PCEA Dose: 3 mL every 20 minutes PRN Out of Bed: No Ambulation: No Able to Use Incentive Spirometry: Yes Escalation of Care: No Tolerating Regular Diet: Yes Ileus: No Epidural Catheter Removed (Intact unless noted in Comments): Yes 06/03/2022 1:26 PM Desiree's pain is well controlled on current epidural regimen. The continuous epidural rate was decreased to 3 mL/hour this morning at 0831. She has used her PCEA 6 times in the past 24 hours, in addition to receiving scheduled tylenol. Her pruritus as improved since yesterday. She is looking forward to breakfast this morning and reports passing gas. She is not on anticoagulation and her platelet count is 317. Her epidural dressing is intact; site appears benign. Plan: If patient tolerates breakfast and PO oxycodone, we will plan to wean her epidural further to PCEA only with anticipated epidural removal later today. It would be beneficial to add prn pain medication to her medication regimen. Addendum: @ 1326 Desiree's epidural was weaned to PCEA only; she has tolerated this wean well. Her epidural was removed;tip intact. Epidural insertion site clean and without drainage, pain or erythema. Please wait at least 6 hours before restarting Eliquis per TIMI guidelines. Plavix (non loading dose) may be administered anytime. MELIDA Maza, RN, have performed the documentation for this encounter in the presence of andacting as a scribe for Dr. Francois. I performed the above scribed service and agree with the accuracy of the note. Crystal Francois MD [facility] Nurse: Melida Lozoya, RN Resident:: Danie Sandhu MD Fellow:: Elida Pickens MD Attending Physician:: Crystal Francois MD * Antonio Bourne RN - 06/02/2022 6:46 PM EDT OUTCOME EVALUATION NOTE: OUTCOME SUMMARY: A&Ox4, VSS on RA. Atarax given for pruritus. Adequate urine ouptut in lee. Serosanguinous drainage in LUIS drain. Midline incision with Prevena CDI. Patient up to wheelchair with OT this afternoon. Patient's pain adequately controlled with epidural. Will continue to monitor and help patient reach d/c goals. PLAN MOVING FORWARD: Pain control Mobilize D/C planning INDIVIDUALIZED FALL PREVENTION: Patient is currently a high risk to Fall. Patient educated on bed/chair alarm, demonstrates proper use of call linares and verbalizes understanding of fall preventions implemented. Patient-specific fall risk factors per assessment: [current deficits]: Pain, Medications, Hospital Environment, Impaired Mobility, Recent Surgery Assistance [level of assistance required for transfers and ambulation]: x1 to wheelchair Supervision [direct monitoring required during toileting and ADLs]: Hands on with ADL's Surveillance [continuous indirect monitoring]: Masimo, Purposeful Rounding, Nurse Knowledge Exchange, Bed Alarm Set * Crystal Francois MD - 06/02/2022 10:42 AM EDT Acute Pain Medicine Service - Epidural Daily Management VITAL SIGNS: Visit Vitals BP (!) 124/97 (BP Location (NBP): Right arm, Patient Position: Lying) Pulse 87 Temp 36.9 ??C (98.4 ??F) (Oral) Resp 22 Ht 160 cm (5' 3) Wt 90.7 kg (200 lb) SpO2 93% BMI 35.43 kg/m?? Body mass index is 35.43 kg/m??. Labs: WBC Date Value Ref Range Status 06/02/2022 12.8 (H) 4.0 - 9.5 x10(3)/mcL Final Hemoglobin Date Value Ref Range Status 06/02/2022 10.9 (L) 11.7 - 15.5 g/dL Final Hematocrit Date Value Ref Range Status 06/02/2022 34.1 (L) 35.7 - 45.8 % Final Platelets Date Value Ref Range Status 06/02/2022 400 (H) 145 - 357 x10(3)/mcL Final PT Date Value Ref Range Status 05/28/2020 13.0 (H) 9.4 - 12.5 sec Final PTT Date Value Ref Range Status 05/28/2020 42 (H) 25 - 37 sec Final Comment: The PTT is NOT appropriate for heparin monitoring. Use the Anti-Xa level for heparin monitoring (HEP UFH) or LMWH monitoring (HEP LMW). A PTT less than 37 seconds generally indicates adequate hemostasis. Operative Procedures: Procedure(s): REPAIR ANT. ABDOMINAL HERNIA(S) (IE, EPIGASTRIC, INCISIONAL, VENTRAL, UMBILICAL, SPIGELIAN), INITIAL, W-WO MESH; GREATER THAN 10 CM, REDUCIBLE (WRVU 13.94) MODIFIER MESH,BARD SOFT MESH FLAP, MYOCUTANEOUS OR FASCIOCUTANEOUS, TRUNK (WRVU 23) MODIFIER MESH IMPLANTATION APS Opioid Administration Hx All administrations since 06/01/2022 are shown below each listed medication. Other Order Route Rate Dose Action Date HYDROmorphone (pf) (10 mcg/mL), BUpivacaine (pf) 0.1% in sodium chloride 0.9% 250 mL epidural Epidural 6 mL/hr 250 mL New Bag 06/02/2022 Epidural 250 mL Continued Bag 06/01/2022 HYDROmorphone (pf) (10 mcg/mL), BUpivacaine (pf) 0.1% in sodium chloride 0.9% 250 mL epidural Epidural 6 mL/hr 6 mL/hr New Bag 06/01/2022 HYDROmorphone (Dilaudid) (2 mg/mL) injection solution 0.2 mg Epidural 0.2 mg Given 06/01/2022 fentaNYL (PF) (50 mcg/mL) injection 25-50 mcg Intravenous 50 mcg Given 06/01/2022 APMS EPIDURAL ROUNDIN06/02/2022 10:42 AM Average Numeric Rating Pain Score (0-10): 0 Post-Op Day: 1 Epidural Day: 2 Epidural Infusion (solution): BUpivacaine 0.1% Epidural Infusion Rate: 6 mL per hour PCEA Dose: 3 mL every 20 minutes PRN Out of Bed: No Ambulation: No Able to Use Incentive Spirometry: Yes Escalation of Care: No Tolerating Regular Diet: No Ileus: No Epidural Catheter Removed (Intact unless noted in Comments): No Ms. Moya endorses well controlled pain this morning and has used her PCEA minimally since surgery yesterday. She is tolerating a CLD and endorses flatus. She has not been OOB but is looking forward to getting into her own wheelchair. She endorses some pruritis. Her epidural dressing is intact and free from signs of infection. We removed the hydromorphone from her epidural this morning due to pruritis. On rounds her back hassome hives and she is scratching it. We ordered benadryl to help with the pruritis. I, CYRIL ROUSE RN, have performed the documentation for this encounter in the presence of and acting as a scribe for Dr. Francois. I performed the above scribed service and agree with the accuracy of the note. Crystal Francois MD [facility] Nurse: Cyril Roues RN Resident:: Danie Sandhu MD Fellow:: Elida Pickens MD Attending Physician:: Crystal Francois MD * Steph Benítez PA - 06/02/2022 9:53 AM EDT Minimally Invasive Surgery Inpatient Progress Note ID: Eliza Moya is a 57 y.o. female with h/o COPD, PAD s/p right AKA, hypertension, CAD s/p PCI(05/2021), a fib, perforated duodenal ulcer in 2020 s/p multiple ex-laps and Donavan-en-Y duodenaljejunostomy who subsequently developed a midline incisional hernia. She presents for hernia repair Hospital Day: 1 Procedures: open ventral hernia repair, abthera placement, now 1 Day Post-Op Subjective & 24hr events: ?? Pain well controlled with dPCEA, patient reports she only hit MEDICAL CERTIFICATION SPECIALIST button by accident once, otherwise pain well controlled ?? Reports severe itching overnight and states she is unable to take Benadryl due to adverse effecton blood pressure ?? Vital signs stable on 2L NC, requesting Trelegy Ellipta inhaler; per nursing note, one brief runof atrial tachycardia/SVT per tele; HR RRR on AM rounds ?? Tolerating clear liquid diet ?? -BM, +flatus ?? Lee in place, making adequate urine 0.4 mL/kg/hr ?? Abthera in place, LUIS drain with ~130mL serosang output overnight ?? 2 point drop in hgb post-op O: Last value Range last 24hrs Temperature Temp: 36.9 ??C (98.4 ??F) Temp: [36.6 ??C (97.9 ??F)-37.5 ??C (99.5 ??F)] Heart Rate Heart Rate: 87 Heart Rate: [87-100] Blood Pressure BP: (!) 124/97 BP: (104-147)/(59-97) Respiratory Rate Resp: 22 Resp: [14-29] SpO2 SpO2: 93 % SpO2: [88 %-99 %] 06/01 0701 - 06/02 0700 In: 3147.7 [I.V.:2752.5] Out: 1205 [Urine:875] Intake and Output: I/O last 3 completed shifts: In: 3147.7 [I.V.:2752.5; Other:395.2] Out: 1205 [Urine:875; Other:180; Blood:150] I/O this shift: In: 260 [P.O.:260] Out: 520 [Urine:500; Other:20] Current Medications: Current Facility-Administered Medications Medication Dose Route Frequency Provider Last Rate Last Admin ??? benzonatate (Tessalon) capsule 100 mg 100 mg Oral TID Whit Nance MD 100 mg at 06/02/22 0906 ??? calcium carbonate (TUMS) chewable tablet 1,000 mg 1,000 mg Oral BID Steph Benítez PA ??? fexofenadine (Tricia) tablet 60 mg 60 mg Oral BID Steph Benítez PA 60 mg at 06/02/22 0944 ??? budesonide-formoteroL (Symbicort) 80-4.5 mcg/actuation inhaler 2 Inhalation 2 Inhalation Inhalation 2 times per day Steph Benítez PA 2 Inhalation at 06/02/22 0945 ??? tiotropium bromide (Spiriva Respimat) 2.5 mcg/actuation inhaler 2 puff 2 puff Inhalation Daily Steph Benítez PA 2 puff at 06/02/22 0945 ??? naloxone (Narcan) (0.4 mg/mL) injection 0.2 mg 0.2 mg Intravenous Q1 Min PRN Crystal Francois MD ??? BUpivacaine (pf) 0.1 % in sodium chloride 0.9% 250 mL epidural (mixture) Epidural Epidural Infusion Crystal Francois MD And ??? Neuraxial/Epidural shift total and settings verification Epidural 2 Times Daily- Neuraxial Shift Total Crystal Francois MD And ??? Neuraxial (Epidural) pham Epidural Continuous PRN Crystal Francois MD ??? hydrOXYzine (Atarax) tablet 10 mg 10 mg Oral Q4H PRN Miley Maldonado MD ??? diphenhydrAMINE (Benadryl) (50 mg/mL) injection 12.5 mg 12.5 mg Intravenous Q6H LEMUEL Crystal Francois MD ??? aspirin chewable tablet 81 mg 81 mg Oral Daily Ramona Arvizu MD 81 mg at 06/02/22941 ??? melatonin tablet 9 mg 9 mg Oral Nightly Ramona Arvizu MD 9 mg at 06/01/222055 ??? ipratropium-albuteroL (Duoneb) 0.5 mg-3 mg(2.5 mg base)/3 mL nebulizer solution 3 mL 3 mL Nebulization Q4H PRN Ramona Arvizu MD ??? atorvastatin (Lipitor) tablet 80 mg 80 mg Oral QPM Ramona Arvizu MD ??? furosemide (Lasix) tablet 20 mg 20 mg Oral Daily Ramona Arvizu MD 20 mg at 06/02/22903 ??? levothyroxine (Synthroid) tablet 50 mcg 50 mcg Oral QAM Ramona Arvizu MD 50 mcg at ??? pantoprazole EC (Protonix) tablet 40 mg 40 mg Oral Daily Ramona Arvizu MD 40 mg at ??? traZODone (Desyrel) tablet 25 mg 25 mg Oral Nightly Ramona Arvizu MD 25 mg at 06/01/222055 ??? sodium chloride 0.9 % (flush) (BD PosiFlush Normal Saline 0.9) flush 5 mL 5 mL Intravenous BID Ramona Arvizu MD 5 mL at 06/02/22907 ??? sodium chloride 0.9 % (flush) (BD PosiFlush Normal Saline 0.9) flush 5-20 mL 5-20 mL Intravenous Q1 Min PRN Ramona Arvizu MD ??? lidocaine (Xylocaine) 1% (10 mg/mL) injection 3 mg 0.3 mL Subcutaneous Once PRN Ramona Arvizu MD ??? naloxone (Narcan) (0.4 mg/mL) injection 0.2 mg 0.2 mg Intravenous Q1 Min PRN Ramona Arvizu MD ??? docusate sodium (Colace) capsule 100 mg 100 mg Oral BID Ramona Arvizu MD 100 mg at ??? albuteroL (Proventil, Ventolin) (2.5 mg/3 mL) (0.083 %) nebulizer solution 2.5 mg 2.5 mg Nebulization Q4H PRN Miley Maldonado MD 2.5 mg at 06/02/22 010 ??? acetaminophen (Tylenol) tablet 975 mg 975 mg Oral Q8H Rena Leon MD 975 mg at 06/02/22 0905 ??? gabapentin (Neurontin) capsule 300 mg 300 mg Oral BID Rena Leon MD 300 mg at 06/02/22 0907 Physical Exam: General: awake, alert, no acute distress HEENT: atraumatic, normocephalic, PERRLA, anicteric sclera CVS: RRR on monitor Pulm: unlabored breathing on 2L NC Abd: soft, nontender, non-distended, midline incision with Abthera in place, LUIS drain with serosanguinous output in bulb : lee in place with clear yellow urine in gravity bag Skin: warm, dry Ext: warm, well perfused, no jaundice, no cyanosis, no edema, right AKA Neuro: CN 2-12 grossly intact, nonfocal, moving all four extremities spontaneously Recent Labs 06/02/22 0938 06/02/22 0347 06/01/22 1538 WBC 12.8* 14.2* 19.2* HGB 10.9* 10.9* 13.3 HCT 34.1* 34.4* 41.9 PLATELET 400* 424* 430* Recent Labs 06/02/22 0347 06/01/22 1538 NA 135 141 K 4.1 4.9 CL 101 106 CO2 24 23 BUN 15 16 CREATININE 0.61* 0.73 GLUCOSE 142 150 CALCIUM 7.6* 8.0* MAGNESIUM 0.76 0.86 PHOS 3.1 3.4 New Imaging: None Assessment: Eliza Moya is a 57 y.o. female with complex abdominal surgical history including multiple ex-laps and Donavan-en-Y with duodenojejunostomy in 2020, and midline incisional hernia who is now 1 Day Post-Op s/p open ventral hernia repair with mesh. Doing very well in terms of pain controlalthough reporting severe itching overnight; she reports having itching with her chronic pain, although this seems worse. Per patient, Benadryl causes hypotension. Spoke with APS who are in agreementwith weaning PCEA for removal tomorrow morning; ok for ppx dose Lovenox tonight pending stable hgb on repeat labs this morning. Tolerating clear liquids w/o N/V, passing flatus but no BMs. Making adequate urine, will maintain Lee until epidural is removed. Spoke to pharmacy re: inpatient equivalent of Trelegy Ellipta inhaler, orders placed. Wean O2 as able; patient mobility limited by AKA, but would still benefit from being up to chair and mobility as tolerated per her baseline. ~130 mL SS from drain overnight, will maintain for now. Plan: Neuro/Pain: pain control with scheduled Tylenol, PCEA, Tricia and hydroxyzine for pruritis, appreciate APS care and reccs, gabapentin and trazodone per home meds, nightly melatonin CV: HDS, will continue to monitor, aspirin, Lipitor and Lasix per home meds Pulm: incentive spirometer, OOB as tolerated, Tessalon for cough, Symbicort and Spiriva to substitute for home Trelegy Ellipta inhaler, albuterol and Duoneb PRN FEN/GI: full liquid diet, HLIV, Tums for low calcium, Colace Renal/: strict I/Os, urine output adequate, maintain lee Wound/ID: Prevena, routine drain and wound care, record drain output qshift Heme: repeat CBC Endocrine: Synthroid per home meds Prophylaxis: SCDs, PPI Dispo: floor status, full code, discharge pending hospital course Signed: CARLEE Castro General Surgery 10:13 AM 06/02/22 MIS service pager: [phone] * Laura Ramirez RN - 06/02/2022 5:34 AM EDT Assumed care at 0100. AOx4, VSS on 2lpm O2 nc. Little to no sleep tonight. +cough, productive at times per pt. Tessalon pearls ordered. Pt asking about a specific inhaler. Provider made aware who will mention it to day team as it may be the one that's non formulary. Wound vac and LUIS drain intact. abd binder in place. Pain well controlled with epidural. Lee draining. Pt assisted with repositioning. 06 notified by tele that pt had 13 sec atach/SVT, then back to NSR HR 80s. Pt asymptomatic. Attempting to notify covering provider but paging and secure chat are blocked for #[id number]. * Deandra Basurto RN - 06/02/2022 12:32 AM EDT OUTCOME EVALUATION NOTE: OUTCOME SUMMARY: Assumed care at 1900. VSS on 2L NC. A&Ox4. Pain well controlled with epidural.No events on tele. Voiding adequate amounts of urine via lee. Tolerating a clear liquid diet. Wound vac intact. LUIS with sanguineous output. Abd binder in place. Patient did report emesis x1 however this was during acoughing fit. She does have a frequent, sometimes productive cough. Call linares within reach. Safety m easures maintained. PLAN MOVING FORWARD: Pain control Monitor I&O Advance diet PT/OT INDIVIDUALIZED FALL PREVENTION INTERVENTIONS: Patient-specific fall risk factors per assessment: [current deficits]: Weakness, R AKA Assistance [level of assistance required for transfers and ambulation]: 2A with lift Supervision [direct monitoring required during toileting and ADLs]: Hands on Surveillance [continuous indirect monitoring]: Masimo, tele, hourly rounding Patient-specific fall prevention interventions for sensory deficits provided, if applicable: [X] N/A CPG GOAL OUTCOME EVALUATION: * Ramona Arvizu MD - 06/01/2022 7:12 PM EDT Post-Operative Check Eliza Moya is a 57 y.o. female s/p Procedure(s): REPAIR ANT. ABDOMINAL HERNIA(S) (IE, EPIGASTRIC, INCISIONAL, VENTRAL, UMBILICAL, SPIGELIAN), INITIAL, W-WO MESH; GREATER THAN 10 CM, REDUCIBLE (WRVU 13.94) MODIFIER MESH,BARD SOFT MESH FLAP, MYOCUTANEOUS OR FASCIOCUTANEOUS, TRUNK (WRVU 23) MODIFIER MESH IMPLANTATION S: No nausea/vomiting, chest pain, SOB, pain well controlled with epidural, offers no complaints, eating jello at bedside O: Temp: [36.6 ??C (97.9 ??F)-37.3 ??C (99.1 ??F)] Heart Rate: [87-100] Resp: [14-29] BP: (104-147)/(60-82) SpO2: [88 %-99 %] Heart Rate from SpO2: [87 bpm] I/O last 3 completed shifts: In: 2364.3 [I.V.:2049; Other:314.3] Out: 600 [Urine:375; Other:75; Blood:150] No intake/output data recorded. Recent Results (from the past 24 hour(s)) BLOOD GAS 2 VENOUS Result Value Ref Range pH Royal 7.38 7.32 - 7.42 pCO2 Royal 47 41 - 51 mmHg pO2 Royal 63 (H) 25 - 40 mmHg HCO3 Royal 27.5 mmol/L BE Royal 2.0 mmol/L Hgb Blood Gas 12.7 11.7 - 15.5 g/dL O2HB Royal 90.8 % COHB Royal 1.4 % METHB Royal 0.3 <=1.5 % Na Whole Blood 139 135 - 145 mmol/L K Whole Blood 3.9 3.5 - 5.0 mmol/L ICa Whole Blood 1.14 (L) 1.15 - 1.33 mmol/L CL Whole Blood 105 98 - 107 mmol/L Gluc Whole Bld 120 65 - 199 mg/dL Lactate WB 1.7 0.5 - 2.2 mmol/L Flow Royal 0.4 LPM BGas Source Venous Temp Royal 35.7 Celsius Basic Metabolic Panel (non-fasting) Result Value Ref Range Glucose Lvl 150 65 - 199 mg/dL BUN 16 8 - 18 mg/dL Creatinine 0.73 0.70 - 1.20 mg/dL Sodium 141 135 - 145 mmol/L Potassium 4.9 3.5 - 5.0 mmol/L Chloride 106 98 - 107 mmol/L CO2 23 22 - 31 mmol/L Anion Gap 12 5 - 15 mmol/L Calcium 8.0 (L) 8.5 - 10.5 mg/dL Estimated GFR 95 >=60 mL/min/1.73 m?? Magnesium Result Value Ref Range Magnesium 0.86 0.69 - 1.07 mmol/L Phosphorus Result Value Ref Range Phosphorus 3.4 2.5 - 4.5 mg/dL Hemogram Result Value Ref Range WBC 19.2 (H) 4.0 - 9.5 x10(3)/mcL RBC 4.95 4.00 - 5.21 x10(6)/mcL Hemoglobin 13.3 11.7 - 15.5 g/dL Hematocrit 41.9 35.7 - 45.8 % MCV 84.6 82.6 - 94.4 fL MCH 26.9 (L) 27.1 - 32.0 pg MCHC 31.7 31.7 - 35.0 g/dL Platelets 430 (H) 145 - 357 x10(3)/mcL RDWSD 46.7 (H) 37.0 - 46.0 fL RDWCV 15.1 (H) 11.5 - 14.1 % MPV 9.5 7.6 - 12.9 fL nRBC % Auto 0.0 % nRBC Abs Auto 0.000 0.000 - 0.000 x10(3)/mcL Differential, Automated Result Value Ref Range Neutrophils % 88.7 % Neutr Abs (ANC) 17.07 (H) 1.70 - 6.10 x10(3)/mcL Lymphocytes % 4.7 % Lymphocytes Abs 0.9 0.9 - 3.2 x10(3)/mcL Monocytes % 5.7 % Monocyte Abs 1.1 (H) 0.3 - 0.9 x10(3)/mcL Eosinophils % 0.1 % Eosinophils Abs 0.0 0.0 - 0.4 x10(3)/mcL Basophils % 0.3 % Basophils Abs 0.1 0.0 - 0.1 x10(3)/mcL Immature Gran % 0.50 % Caitie Gran Abs 0.10 (H) 0.00 - 0.04 x10(3)/mcL Physical Exam Gen: A0x3, NAD, resting comfortably, epidural in place CVS: Regular rate and rhythm Resp: breathing comfortably on 2L NC Abd: soft, minimally tender, nondistended, provena in place over midline incision holding suction, LUIS drain in LLQ with sanguinous output : lee in place, 300 cc CYU in bag Ext: RLE AKA, WWP AP Eliza Moya is a 57 y.o. female s/p incisional hernia repair with mesh with transversus abdominis release currently in stable condition and recovering well. - Clear Liquid - Pain well controlled - Hemodynamically stable, UOP adequate - Hold DVT ppx until AM - F/u AM labs - Tele given h/o afib - Hold plavix and Eliquis Ramona Arvizu MD 06/01/2022 * nAtonio Bourne RN - 06/01/2022 6:16 PM EDT Patient arrived to floor via bed from PACU. Patient A&O x4, VSS on 2L NC. Patient instructed onIS use. Prevena wound vac in place covering midline abdominal incision. Abdominal binder in place. LLQ abdominal drain in place with serosanguinous output. Lee catheter draining CYU. Patient in NSRon telemetry. Patient reports pain is well controlled- epidural in place. Advanced to clear liquid diet. * Candice Wu RN - 06/01/2022 4:07 PM EDT 1545- Abd binder placed per service. Labs sent. documented in this encounter H&P Notes * Ramona Arvizu MD - 06/01/2022 7:20 AM EDT [facility] General Surgery History and Physical Eliza Moya is a 57 y.o. female with a history of COPD, PAD s/p right AKA, HTN, CAD s/p PCI 05/27, paroxysmal atrial fibrillation, and a history of duodenal perforation with an open abdomen and donavan-en-y- duodenojejunostomy who presents today for large ventral hernia repair. The patient reports that she has been well since the last clinic visit with Dr. Nance on 12/16/21 and telehealth visit on 04/07/22 without significant changes to medical status. Denies new diagnoses or medication changes. Denies recent illness including fever/chills, cough/flu-like symptoms, and recent infection. Denies chest pain and shortness of breath. She has continued to abstain from smoking. She stopped taking her plavix 5 days ago and Eliquis 72 hrs ago. She reminds us today of her history of oxycodone addiction and is happy to get an epidural for extra pain coverage to minimize her narcotic use. Signficant PM/ Past Medical History: Diagnosis Date ??? CAD (coronary artery disease) ??? COPD (chronic obstructive pulmonary disease) ??? HTN (hypertension) ??? Hypothyroid ??? PAD (peripheral artery disease) Past Surgical History: Procedure Laterality Date ??? CT PERITONEAL DRAINAGE 05/27/2020 CT Guided Drain Peritoneal 05/27/2020 [facility] RAD CAT SCAN ??? CT PERITONEAL DRAINAGE 05/27/2020 CT Guided Drain Peritoneal 05/27/2020 [facility] RAD CAT SCAN ??? CT PERITONEAL DRAINAGE 05/27/2020 CT Guided Drain Peritoneal 05/27/2020 [facility] RAD CAT SCAN ??? IR CHEST TUBE PLACEMENT BILATERAL 05/15/2020 IR Chest Tube Placement Bilateral 05/15/2020 Ricky Hollis MD [facility] INTERVENTIONL RAD ??? PRO AMPUTATE THIGH, OPEN CIRCULAR Right 05/11/2020 AMPUTATION, ABOVE-KNEE, OPEN, GUILLOTINE (WRVU 10.98) performed by Christine Montgomery MD at [facility] MAIN OR ??? PRO AMPUTATE THIGH, SECONDRY CLOSUR Right 06/13/2020 AMPUTATION, ABOVE-KNEE, SECONDARY CLOSURE OR SCAR REVISION (WRVU 7.29) performed by Christine Montgomery MD at [facility] MAIN OR ??? PRO CHOLECYSTOENTER+DONAVAN-EN-Y+GASTROENT N/A 05/12/2020 @DONAVAN-EN-Y WITH GASTROENTEROSTOMY (WRVU 24.21) performed by Meme Torres MD at [facility] OR ??? PRO EXPLORATION OF ABDOMEN N/A 05/11/2020 @EXPLORATORY LAPAROTOMY, WITH/WITHOUT BIOPSY(S) (WRVU 12.54) performed by Meme Torres MD at [facility] OR ??? PRO GASTROJEJUNOSTOMY N/A 05/12/2020 @GASTROJEJUNOSTOMY (WRVU 22.53) performed by Meme Torres MD at [facility] OR ??? PRO REOPEN RECENT ABD EXPLORATORY N/A 05/12/2020 @EXPLORATORY LAPAROTOMY, REOPENING OF RECENT (WRVU 17.63) performed by Meme Torres MD at [facility] OR ??? PRO REOPEN RECENT ABD EXPLORATORY Midline 05/16/2020 @EXPLORATORY LAPAROTOMY, REOPENING OF RECENT (WRVU 17.63) performed by Nakul Vega MD at [facility] OR ??? PRO REOPEN RECENT ABD EXPLORATORY Midline 05/18/2020 @EXPLORATORY LAPAROTOMY, REOPENING OF RECENT (WRVU 17.63) performed by Marco Silver MD at [facility] OR ??? PRO REPAIR PERF DUOD/JIMENA ULC-WND/INJ N/A 05/11/2020 GASTRORRHAPHY, SUTURE OF PERFORATED, ULCER, WOUND, INJURY (WRVU 22.83) performed by Meme Torres MD at [facility] OR ??? PRO RESECT SMALL INTEST, SINGL RESEC/ANAS N/A 05/12/2020 @BOWEL RESECTION, SMALL INTESTINE SINGLE ANASTOMOSIS (WRVU 20.82) performed by Meme Torres MD at [facility] OR ??? PRO SUTURE ABD WALL-DEHIS/EVISCER Midline 05/20/2020 @SUTURE, SECONDARY, OF ABD WALL FOR EVISCERATION OR DEHISCENCE (WRVU 12.41) performed by Antonio Akbar MD at [facility] OR ? ? PRO UNLISTED PX ABD PRTM&OMENTUM N/A 05/20/2020 SUTURE OMENTUM (WRVU 11.1) performed by Antonio Akbar MD at [facility] MAIN OR ??? PRO UNLISTED PX ABDOMEN MUSCULOSKELETAL SYSTEM Midline 05/16/2020 WOUND CLOSURE, ABDOMINAL, PARTIAL W/ WOUND VAC (WRVU 6.39) performed by Nakul Vega MD at [facility] MAIN OR ??? PRO UPPER GI ENDOSCOPY, BIOPSY N/A 11/25/2020 EGD WITH BIOPSY (WRVU 2.49) performed by Kervin Rubio MD at [facility] ENDOSCOPY Current Facility-Administered Medications: ??? sodium chloride 0.9 % (flush) (BD PosiFlush Normal Saline 0.9) flush 5-20 mL, 5-20 mL, Intravenous, Q1 Min PRN, Douglas Sinha MD ??? lidocaine (Xylocaine) 1% (10 mg/mL) injection 3 mg, 0.3 mL, Subcutaneous, Once PRN, Angelo Sinha MD ??? lactated ringers infusion, 1,000 mL, Intravenous, Continuous, Douglas Sinha MD ??? ipratropium-albuteroL (Duoneb) 0.5 mg-3 mg(2.5 mg base)/3 mL nebulizer solution 3 mL, 3 mL, Nebulization, Once, Douglas Sinha MD ??? midazolam (pf) (Versed) (1 mg/mL) injection 0.5-2 mg, 0.5-2 mg, Intravenous, Q1 Min PRN, Timothy Murphy MD ??? fentaNYL (PF) (50 mcg/mL) injection 25-50 mcg, 25-50 mcg, Intravenous, Q5 Min PRN, Timothy Murphy MD ??? HYDROmorphone (Dilaudid) (2 mg/mL) injection solution 0.2 mg, 0.2 mg, Epidural, Once, Timothy Murphy MD ??? naloxone (Narcan) (0.4 mg/mL) injection 0.2 mg, 0.2 mg, Intravenous, Q1 Min PRN, Timothy Murphy MD ??? HYDROmorphone (pf) (10 mcg/mL), BUpivacaine (pf) 0.1% in sodium chloride 0.9% 250 mL epidural, , Epidural, Epidural Infusion, Held at 06/01/22 0630 AND Neuraxial shift total and Settings verification, , Epidural, 2 Times Daily- Neuraxial Shift Total AND Neuraxial (Epidural) pham, , Epidural, Continuous PRN, Timothy Murphy MD ??? ceFAZolin (Ancef) 2 g vial attach to sodium chloride 0.9% 100 mL Mini-Bag Plus, 2 g, Intravenous, Senior Linux Systems Engineer to OR, Ramona Arvizu MD ??? heparin (porcine) (5,000 units/1 mL) subcutaneous injection 5,000 Units, 5,000 Units, Subcutaneous, Senior Linux Systems Engineer to OR, Ramona Arvizu MD Patient Vitals for the past 24 hrs: Temp Pulse Resp BP SpO2 O2 Device 06/01/22 0623 36.3 ??C (97.3 ??F) 77 18 134/61 94 % RA Physical Exam Gen: alert and oriented, sitting up comfortably in bed Neuro: no focal deficits CV: regular rate Pulm: clear bilaterally, breathing comfortably on room air GI: Soft, nontender, large incisional hernia able to appreciate bowel beneath the skin, well healedmidline scar Assesssment/Plan: Proceed with scheduled procedure: open incisional hernia repair with mesh, possible component separation, possible bowel resection - Has been appropriately consented and is ready to proceed. Ramona Arvizu MD 06/01/2022 documented in this encounter Miscellaneous Notes * Plan of Care - Tess Lozano RN - 06/04/2022 10:57 PM EDT OUTCOME EVALUATION NOTE: OUTCOME SUMMARY: Pt A&Ox4, VSS on 2L NC. Denies N/V, CP, SOB, numbness and tingling. Pain controlled w/ scheduled and PRN medications, see MAY. Incisional wound vac to abdomen, CDI. LUIS to abdomen, dried drainage noted. Pt voiding to BSC. Pt is a SBA w/ FWW, stand-pivot. Pt appropriately progressing towards d/c goals at this time. Will observe and report any changes. PLAN MOVING FORWARD: Tele Abdominal binder on w/ ambulation Pain management Mobilization PT/OT I&O's D/C planning INDIVIDUALIZED FALL PREVENTION INTERVENTIONS: Patient-specific fall risk factors per assessment: [current deficits]: hospital environment, medication, IV lines, pain, general weakness Assistance [level of assistance required for transfers and ambulation]: SBA w/ FWW, stand-pivot Supervision [direct monitoring required during toileting and ADLs]: eyes on, hands on Surveillance [continuous indirect monitoring]: Masimo, bed alarm, room near nurses station, nurse knowledge exchange * Plan of Care - Nadia Ortez RN - 06/04/2022 6:38 PM EDT OUTCOME EVALUATION NOTE: OUTCOME SUMMARY: Patient's pain controlled with scheduled pain medication. Patient cooperative with care and restingbetween care. Patient up to wheelchair and commode frequently throughout shift. Patient seen by pulmonology and respiratory this shift. O2 test completed for discharge - see previous note. X2 IVs came out accidentally this shift - IV team paged for new IV. No events on telemetry - orders renewed byprovider. No adverse events this shift. VSS. Will continue to monitor and help patient reach d/c goals. PLAN MOVING FORWARD: Pain control Mobilize D/c planning INDIVIDUALIZED FALL PREVENTION: Patient is currently a high risk to Fall. Patient educated on bed/chair alarm, demonstrates proper use of call linares and verbalizes understanding of fall preventions implemented. Patient-specific fall risk factors per assessment: [current deficits]: Impaired mobility, Pain, Medications, Hospital Environment. Assistance [level of assistance required for transfers and ambulation]: SBA stand pivot Supervision [direct monitoring required during toileting and ADLs]: Eyes on per unit protocol when OOB/with ADL's Surveillance [continuous indirect monitoring]: Telemetry, Masimo, Purposeful Rounding, Nurse Knowledge Exchange * Consult Note - Pa Jones MD - 06/04/2022 9:50 AM EDT Images from the original note were not included. [facility] Section of Pulmonary and Critical Care Medicine Inpatient Consultation Patient: Eliza Moya : 1965 Admitted: 06/01/2022 6:04 AM Attending: Whit Nance MD Date of Encounter: 06/04/2022 Reason for Consult: persistent post-op oxygen requirement Patient ID: Eliza Moya is a 57 y.o. female here with post-op hypoxia. History of Present Illness: 57-year-old female, PMHx of GOLD 3E COPD [on home Trellegy], asthma, PAD s/p R- AKA, HTN, NSTEMI [s/p BENSON to Mid LCx], AF [on eliquis], and complicated abdominal surgical history [multiple ex-lap, Donavan-en-Y after perforated duodenal ulcer], who [place] [facility] [place] midline incisional hernia repair now POD#3. Post-op course has been complicated by persistent hypoxia for which Pulmonology is consulted. Patient had an uneventful surgery and initial post-op course. She was not on oxygen and was satting~94% on room air prior. Post-op, patient was noted to be slightly hypoxic requiring 2L NC. Epiduralwith PRN oxycodone for pain control. Post-op course otherwise only notable for slight cough. Patient was started on benzonate and hospital-equivalents of home Trelegy. A CXR was obtained 06/04, whichrevealed bibasilar atelectasis without consolidation, effusion, or pulmonary edema. Patient has a long-standing COPD history. She follows with Pulmonology at [facility]. 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 Patient had been on home oxygen in the past, but since quitting smoking ~2 years ago has not needed it. She did briefly need home oxygen1 year ago after discharge [place] [facility] [place] but this was quickly weaned off. She notes that prior to admission she did have a cough/cold symptoms. Several sick contacts at homewith similar symptoms. No chronic cough. She states that when her oxygen drops she sometimes feels lightheaded and her speech changes. Review of Systems: Review of Systems Constitutional: Positive for malaise/fatigue. Negative for chills and decreased appetite. HENT: Negative for congestion and sore throat. Eyes: Negative for blurred vision. Cardiovascular: Positive for dyspnea on exertion and orthopnea. Negative for chest pain. Respiratory: Positive for cough. Negative for hemoptysis, shortness of breath, sputum production and wheezing. Gastrointestinal: Positive for abdominal pain and constipation. Past Medical and Surgical History: Past Medical History: Diagnosis Date ??? CAD (coronary artery disease) ??? COPD (chronic obstructive pulmonary disease) ??? HTN (hypertension) ??? Hypothyroid ??? PAD (peripheral artery disease) Past Surgical History: Procedure Laterality Date ??? CT PERITONEAL DRAINAGE 05/27/2020 CT Guided Drain Peritoneal 05/27/2020 [facility] RAD CAT SCAN ??? CT PERITONEAL DRAINAGE 05/27/2020 CT Guided Drain Peritoneal 05/27/2020 [facility] RAD CAT SCAN ??? CT PERITONEAL DRAINAGE 05/27/2020 CT Guided Drain Peritoneal 05/27/2020 [facility] RAD CAT SCAN ??? IR CHEST TUBE PLACEMENT BILATERAL 05/15/2020 IR Chest Tube Placement Bilateral 05/15/2020 Ricky Hollis MD [facility] INTERVENTIONL RAD ??? PRO AMPUTATE THIGH, OPEN CIRCULAR Right 05/11/2020 AMPUTATION, ABOVE-KNEE, OPEN, GUILLOTINE (WRVU 10.98) performed by Christine Montgomery MD at [facility] OR ??? PRO AMPUTATE THIGH, SECONDRY CLOSUR Right 06/13/2020 AMPUTATION, ABOVE-KNEE, SECONDARY CLOSURE OR SCAR REVISION (WRVU 7.29) performed by Christine Montgomery MD at [facility] OR ??? PRO CHOLECYSTOENTER+DONAVAN-EN-Y+GASTROENT N/A 05/12/2020 @DONAVAN-EN-Y WITH GASTROENTEROSTOMY (WRVU 24.21) performed by Meme Torres MD at [facility] OR ??? PRO EXPLORATION OF ABDOMEN N/A 05/11/2020 @EXPLORATORY LAPAROTOMY, WITH/WITHOUT BIOPSY(S) (WRVU 12.54) performed by Meme Torres MD at [facility] OR ??? PRO GASTROJEJUNOSTOMY N/A 05/12/2020 @GASTROJEJUNOSTOMY (WRVU 22.53) performed by Meme Torres MD at [facility] OR ??? PRO MUSCLE-SKIN FLAP, TRUNK N/A 06/01/2022 FLAP, MYOCUTANEOUS OR FASCIOCUTANEOUS, TRUNK (WRVU 23) performed by Whit Nance MD at [facility] OR ??? PRO REOPEN RECENT ABD EXPLORATORY N/A 05/12/2020 @EXPLORATORY LAPAROTOMY, REOPENING OF RECENT (WRVU 17.63) performed by Meme Torres MD at [facility] OR ??? PRO REOPEN RECENT ABD EXPLORATORY Midline 05/16/2020 @EXPLORATORY LAPAROTOMY, REOPENING OF RECENT (WRVU 17.63) performed by Nakul Vega MD at [facility] OR ??? PRO REOPEN RECENT ABD EXPLORATORY Midline 05/18/2020 @EXPLORATORY LAPAROTOMY, REOPENING OF RECENT (WRVU 17.63) performed by Marco Silver MD at [facility] OR ? ? PRO REPAIR AA HERNIA INITIAL > 10 CM REDUCIBLE N/A 06/01/2022 REPAIR ANT. ABDOMINAL HERNIA(S) (IE, EPIGASTRIC, INCISIONAL, VENTRAL, UMBILICAL, SPIGELIAN), INITIAL, W-WO MESH; GREATER THAN 10 CM, REDUCIBLE (WRVU 13.94) performed by Whit Nance MD at [facility] OR ??? PRO REPAIR PERF DUOD/JIMENA ULC-WND/INJ N/A 05/11/2020 GASTRORRHAPHY, SUTURE OF PERFORATED, ULCER, WOUND, INJURY (WRVU 22.83) performed by Meme Torres MD at [facility] OR ??? PRO RESECT SMALL INTEST, SINGL RESEC/ANAS N/A 05/12/2020 @BOWEL RESECTION, SMALL INTESTINE SINGLE ANASTOMOSIS (WRVU 20.82) performed by Meme Torres MD at [facility] OR ??? PRO SUTURE ABD WALL-DEHIS/EVISCER Midline 05/20/2020 @SUTURE, SECONDARY, OF ABD WALL FOR EVISCERATION OR DEHISCENCE (WRVU 12.41) performed by Antonio Akbar MD at [facility] MAIN OR ? ? PRO UNLISTED PX ABD PRTM&OMENTUM N/A 05/20/2020 SUTURE OMENTUM (WRVU 11.1) performed by Antonio Akbar MD at [facility] OR ??? PRO UNLISTED PX ABDOMEN MUSCULOSKELETAL SYSTEM Midline 05/16/2020 WOUND CLOSURE, ABDOMINAL, PARTIAL W/ WOUND VAC (WRVU 6.39) performed by Nakul Vega MD at [facility] OR ??? PRO UPPER GI ENDOSCOPY, BIOPSY N/A 11/25/2020 EGD WITH BIOPSY (WRVU 2.49) performed by Kervin Rubio MD at [facility] ENDOSCOPY Social and Occupational History: Social History Socioeconomic History ??? Marital status: Spouse name: None ??? Number of children: None ??? Years of education: None ??? Highest education level: None Occupational History ??? None Tobacco Use ??? Smoking status: Former Packs/day: 1.00 Years: 40.00 Pack years: 40.00 Types: Cigarettes Quit date: 10/07/2021 Years since quittin.6 ??? Smokeless tobacco: Never ??? Tobacco comments: never vape Vaping Use ??? Vaping Use: Never used Substance and Sexual Activity ??? Alcohol use: Not Currently Comment: none since 06/2020 ??? Drug use: Never ??? Sexual activity: Yes Comment: deferred Other Topics Concern ??? None Social History Narrative ??? None Social Determinants of Health Financial Resource Strain: Not on file Food Insecurity: Not on file Transportation Needs: Not on file Physical Activity: Not on file Housing Stability: Not on file Current Medications: Current Facility-Administered Medications: ??? calcium carbonate (TUMS) chewable tablet 1,000 mg, 1,000 mg, Oral, BID, Steph Benítez PA,1,000 mg at 06/04/22 0931 ??? bisacodyL (Dulcolax) suppository 10 mg, 10 mg, Rectal, Daily, Whit Nance MD, 10 mg at 06/04/22 0900 ??? methocarbamoL (Robaxin) tablet 750 mg, 750 mg, Oral, TID, Steph Benítez PA, 750 mg at 06/04/22931 ??? lidocaine (Lidoderm) 5% patch 1 patch, 1 patch, Transdermal, Q24H, Steph Benítez PA ??? albuteroL (Proventil, Ventolin) (2.5 mg/3 mL) (0.083 %) nebulizer solution 2.5 mg, 2.5 mg, Nebulization, 4 Times Daily, Whit Nance MD, 2.5 mg at 06/04/22932 ??? oxyCODONE (Roxicodone) tablet 5-10 mg, 5-10 mg, Oral, Q4H PRN, Steph Benítez PA, 10 mg at06/04/22 0118 ??? acetaminophen (Tylenol) tablet 975 mg, 975 mg, Oral, Q6H LEMUEL, Steph Benítez PA, 975 mg at06/04/22931 ??? polyethylene glycoL (Miralax) packet 17 g, 17 g, Oral, Daily, Steph Benítez PA, 17 g at 06/04/22932 ??? benzonatate (Tessalon) capsule 100 mg, 100 mg, Oral, TID, Whit Nance MD, 100 mg at 06/04/22929 ??? budesonide-formoteroL (Symbicort) 80-4.5 mcg/actuation inhaler 2 Inhalation, 2 Inhalation, Inhalation, 2 times per day, Steph Benítez PA, 2 Inhalation at 06/04/22935 ??? tiotropium bromide (Spiriva Respimat) 2.5 mcg/actuation inhaler 2 puff, 2 puff, Inhalation, Daily, Steph Benítez PA, 2 puff at 06/04/22935 ??? hydrOXYzine (Atarax) tablet 10 mg, 10 mg, Oral, 4 Times Daily PRN, Whit Nance MD, 10 mgat 06/04/228 ??? aspirin chewable tablet 81 mg, 81 mg, Oral, Daily, Ramona Arvizu MD, 81 mg at 06/04/22929 ??? melatonin tablet 9 mg, 9 mg, Oral, Nightly, Ramona Arvizu MD, 9 mg at 06/03/222030 ??? ipratropium-albuteroL (Duoneb) 0.5 mg-3 mg(2.5 mg base)/3 mL nebulizer solution 3 mL, 3 mL, Nebulization, Q4H PRN, Ramona Arvizu MD, 3 mL at 06/04/22 0602 ??? atorvastatin (Lipitor) tablet 80 mg, 80 mg, Oral, QPM, Ramona Arvizu MD, 80 mg at 06/03/22 1635 ??? furosemide (Lasix) tablet 20 mg, 20 mg, Oral, Daily, Ramona Arvizu MD, 20 mg at 06/04/2230 ??? levothyroxine (Synthroid) tablet 50 mcg, 50 mcg, Oral, QAM, Ramona Arvizu MD, 50 mcg at 06/04/22 0623 ??? pantoprazole EC (Protonix) tablet 40 mg, 40 mg, Oral, Daily, Ramona Arvizu MD, 40 mg at 06/04/22 0932 ??? traZODone (Desyrel) tablet 25 mg, 25 mg, Oral, Nightly, Ramona Arvizu MD, 25 mg at ??? sodium chloride 0.9 % (flush) (BD PosiFlush Normal Saline 0.9) flush 5 mL, 5 mL, Intravenous, BID, Ramona Arvizu MD, 5 mL at 06/04/22 0937 ??? sodium chloride 0.9 % (flush) (BD PosiFlush Normal Saline 0.9) flush 5-20 mL, 5-20 mL, Intravenous, Q1 Min PRN, Ramona Arvizu MD ??? lidocaine (Xylocaine) 1% (10 mg/mL) injection 3 mg, 0.3 mL, Subcutaneous, Once PRN, Ramona Arvizu MD ??? naloxone (Narcan) (0.4 mg/mL) injection 0.2 mg, 0.2 mg, Intravenous, Q1 Min PRN, Pelon Arvizu MD ??? docusate sodium (Colace) capsule 100 mg, 100 mg, Oral, BID, Ramona Arvizu MD, 100 mg at 06/04/22 0933 ??? gabapentin (Neurontin) capsule 300 mg, 300 mg, Oral, BID, Rena Leon MD, 300 mg at 06/04/22 0932 Adverse Drug Reactions: Allergies Allergen Reactions ??? Doxycycline Rash RADHA- unknown ??? Sulfa (Sulfonamide Antibiotics) Rash RADHA- unknown ??? Vicodin [Hydrocodone-Acetaminophen] Other (See Comments) RADHA- unknown Objective Data: Patient Vitals for the past 8 hrs: BP Temp Temp src Resp SpO2 06/04/22 0715 135/78 36.8 ??C (98.2 ??F) Oral 18 94 % 06/04/22 0345 127/75 36.4 ??C (97.5 ??F) Oral 19 94 % Intake/Output Summary (Last 24 hours) at 06/04/2022 0952 Last data filed at 06/04/2022 0826 Gross per 24 hour Intake 1982 ml Output 1900 ml Net 82 ml Physical Exam: Gen: NAD. A&Ox3. HEENT: No scleral icterus. Moist mucous membranes. CV: RRR. Normal S1 and S2. No M/R/G. Pulm: poor inspiratory effort, decreased breath sounds in bilateral bases, no audible crackles, no wheeze Abd: dressing c/d/i, LUIS drain w/ SS fluid Ext: no edema, clubbing, or cyanosis, R-AKA Skin: no visible rashes or significant lesions Neuro: alert and appropriate. Non-focal. Grossly intact. Psych: cooperative. Diagnostic Testing: Imaging: Results for orders placed or performed during the hospital encounter of 06/01/22 XR Chest PA & Lateral (Generic) (Exam End: 06/04/2022 9:04 AM) Impression Bibasilar linear atelectasis Thank you for letting us participate in the care of this patient. If you are a health care provider and have any questions regarding this report, please contact the number below. For patients who have questions please contact the health rn intensive care unit that requested your imaging first. Electronically signed by: Desi Daniel MD, [facility] ([phone]), at 06/04/2022 9:15 AM Labs: Recent Labs 06/04/22 0920 06/04/22 0334 06/03/22 0359 06/02/22 0938 06/02/22 0347 WBC 13.0* 12.9* 12.4* 12.8* 14.2* HGB 10.1* 9.7* 10.6* 10.9* 10.9* HCT 33.0* 30.4* 33.7* 34.1* 34.4* PLATELET 410* 361* 317 400* 424* Recent Labs 06/04/22 0334 06/03/22 0359 06/02/22 0938 06/02/22 0347 06/01/22 1538 NA 140 138 135 135 141 K 3.8 3.7 3.7 4.1 4.9 CL 106 104 101 101 106 CO2 27 25 25 24 23 BUN 10 8 12 15 16 CREATININE 0.57* 0.66* 0.64* 0.61* 0.73 GLUCOSE 180 146 122 142 150 Recent Labs 06/04/22 0334 06/03/22 0359 06/02/22 0938 06/02/22 0347 06/01/22 1538 CALCIUM 7.8* 7.9* 7.5* 7.6* 8.0* MAGNESIUM 0.91 0.79 -- 0.76 0.86 PHOS 2.5 1.9* -- 3.1 3.4 Impression: 57-year-old female, PMHx of GOLD 3E COPD, asthma, PAD, NSTEMI, AF, with persistent hypoxia on POD#3after ventral hernia repair. Chest imaging notable for bibasilar atelectasis without pulmonary edema or infiltrate. Patient's hypoxia is likely consistent with poor air movement and atelectasis leading to shunt physiology. She likely has poor respiratory reserve at baseline given she has advanced COPD and previously required home oxygen, and small drops in her respiratory reserve necessitates supplemental oxygen. No evidence for pulmonary edema or pneumonia on the CXR. Suspect that her atelectasis is likely due to poor inspiratory effort 2/2 pain and body habitus. Patient will need continued respiratory optimization with OOB, incentive spirometry, and pain control. Suspect that her oxygen requirement will improve as her pain improves and she is able to move around more. She may require a short course of s upplemental O2 at home. Summary of Recommendations: #Persistent hypoxia #Bibasilar atelectasis -Encourage OOB, incentive spirometry, adequate pain control -Anticipate that patient's oxygen requirement will improve with rehab, she may require temporary supplemental oxygen -Continue with current COPD therapy and restart Trellegy at discharge Case was discussed with the Pulmonary consult attending, Dr. Hitchcock Consult service will continue to follow patient. X Recommendations are above, please page if further consultation required. Pa Jones MD Internal Medicine PGY1 Associated attestation - Sanket Hitchcock MD - 06/04/2022 5:44 PM EDT Pulmonary/CCM Attending I have independently interviewed and examined the patient, and I agree with the detailed description of our jointly formulated impressions and recommendations outlined by Dr. Jones. Sanket Hitchcock MD water main inspector [phone] * Plan of Care - Tess Lozano RN - 06/03/2022 11:29 PM EDT OUTCOME EVALUATION NOTE: OUTCOME SUMMARY: Pt A&Ox4, VSS on 2L NC. Denies N/V, CP, SOB, numbness and tingling. Pain controlled w/ scheduled and PRN medications, see MAR. Incisional wound vac to abdomen, CDI. LUIS to abdomen, dried drainage noted. Pt voiding to BSC. Pt is a 1A w/ FWW, stand-pivot. Pt appropriately progressing towards d/c goals at this time. Will observe and report any changes. PLAN MOVING FORWARD: Tele Abdominal binder on w/ ambulation Pain management Mobilization PT/OT I&O's D/C planning INDIVIDUALIZED FALL PREVENTION INTERVENTIONS: Patient-specific fall risk factors per assessment: [current deficits]: hospital environment, medication, IV lines, pain, general weakness Assistance [level of assistance required for transfers and ambulation]: 1A w/ FWW, stand-pivot Supervision [direct monitoring required during toileting and ADLs]: eyes on, hands on Surveillance [continuous indirect monitoring]: Masimo, bed alarm, room near nurses station, nurse knowledge exchange * Plan of Care - Nadia Ortez RN - 06/03/2022 5:57 PM EDT OUTCOME EVALUATION NOTE: OUTCOME SUMMARY: Patient's pain controlled with scheduled and PRN pain medication. Epidural removed by APS, PRN and scheduled pain medications adjusted. Patient cooperative with care and resting between care. Lee pulled this afternoon, patient voided with low PVR. Patient advanced to regular diet. No adverse events this shift. VSS - 2L NC when sleeping/napping. Scheduled nebs added. Patient remains on telemetry, no events. Will continue to monitor and help patient reach d/c goals. PLAN MOVING FORWARD: Pain control Mobilize D/c planning INDIVIDUALIZED FALL PREVENTION: Patient is currently a high risk to Fall. Patient educated on bed/chair alarm, demonstrates proper use of call linares and verbalizes understanding of fall preventions implemented. Patient-specific fall risk factors per assessment: [current deficits]: Impaired mobility, Pain, Medications, Hospital Environment. Assistance [level of assistance required for transfers and ambulation]: 1A stand pivot Supervision [direct monitoring required during toileting and ADLs]: Eyes on per unit protocol when OOB/with ADL's Surveillance [continuous indirect monitoring]: Telemetry, Masimo, Purposeful Rounding, Nurse Knowledge Exchange * Plan of Care - Chanda Montes De Oca RN - 06/03/2022 3:23 AM EDT OUTCOME EVALUATION NOTE: OUTCOME SUMMARY: Patient progressing towards d/c goals appropriately at this time. Patient's pain adequately with PCEA. Pt is alert and oriented x 4, VSS. Sleeping between care overnight. Lee in place, voiding adequately, lee care completed. R AKA at baseline. Midline incision with Prevena wound vac remains clean, dry and intact. LUIS drain in place draining small amounts of serosanguinous fluid. Remote telemetry in place, no events overnight. Will continue to monitor and help patient reach d/c goals. PLAN MOVING FORWARD: Pain control Mobilize PT / OT Epidural MEDICAL CERTIFICATION SPECIALIST Monitor LUIS drain output Lee D/c planning INDIVIDUALIZED FALL PREVENTION: Patient is currently a high risk to Fall. Patient educated on bed/chair alarm, demonstrates proper use of call linares and verbalizes understanding of fall preventions implemented. Patient-specific fall risk factors per assessment: [current deficits]: Invasive lines, epiduratl, Pain, Medications, Hospital Environment. Assistance [level of assistance required for transfers and ambulation]: 1 assist to baseline wheelchair Supervision [direct monitoring required during toileting and ADLs]: Moderate assist with ADL's Surveillance [continuous indirect monitoring]: Remote telemetry, Masimo, Purposeful Rounding, NurseKnowledge Exchange Patient-specific fall prevention interventions for sensory deficits provided, if applicable: n/a * Initial Assessments - Charity Daniel OT - 06/02/2022 12:49 PM EDT Occupational Therapy Evaluation Patient profile: Eliza Moya is a 57 y.o. female admitted on 06/01/2022 for with h/o COPD, PAD s/p right AKA, hypertension, CAD s/p PCI (05/2021), a fib, perforated duodenal ulcer in 2020 s/p multiple ex-laps and Donavan-en-Y duodenaljejunostomy who subsequently developed a midline incisional hernia. She is now s/p incisional hernia repair with mesh with transversus abdominis release. Past Medical History: Diagnosis Date ??? CAD (coronary artery disease) ??? COPD (chronic obstructive pulmonary disease) ??? HTN (hypertension) ??? Hypothyroid ??? PAD (peripheral artery disease) Past Surgical History: Procedure Laterality Date ??? CT PERITONEAL DRAINAGE 05/27/2020 CT Guided Drain Peritoneal 05/27/2020 [facility] RAD CAT SCAN ??? CT PERITONEAL DRAINAGE 05/27/2020 CT Guided Drain Peritoneal 05/27/2020 [facility] RAD CAT SCAN ??? CT PERITONEAL DRAINAGE 05/27/2020 CT Guided Drain Peritoneal 05/27/2020 [facility] RAD CAT SCAN ??? IR CHEST TUBE PLACEMENT BILATERAL 05/15/2020 IR Chest Tube Placement Bilateral 05/15/2020 Ricky Hollis MD [facility] INTERVENTIONL RAD ??? PRO AMPUTATE THIGH, OPEN CIRCULAR Right 05/11/2020 AMPUTATION, ABOVE-KNEE, OPEN, GUILLOTINE (WRVU 10.98) performed by Christine Montgomery MD at [facility] OR ??? PRO AMPUTATE THIGH, SECONDRY CLOSUR Right 06/13/2020 AMPUTATION, ABOVE-KNEE, SECONDARY CLOSURE OR SCAR REVISION (WRVU 7.29) performed by Christine Montgomery MD at [facility] OR ??? PRO CHOLECYSTOENTER+DONAVAN-EN-Y+GASTROENT N/A 05/12/2020 @DONAVAN-EN-Y WITH GASTROENTEROSTOMY (WRVU 24.21) performed by Meme Torres MD at [facility] OR ??? PRO EXPLORATION OF ABDOMEN N/A 05/11/2020 @EXPLORATORY LAPAROTOMY, WITH/WITHOUT BIOPSY(S) (WRVU 12.54) performed by Meme Torres MD at [facility] OR ??? PRO GASTROJEJUNOSTOMY N/A 05/12/2020 @GASTROJEJUNOSTOMY (WRVU 22.53) performed by Meme Torres MD at [facility] OR ??? PRO MUSCLE-SKIN FLAP, TRUNK N/A 06/01/2022 FLAP, MYOCUTANEOUS OR FASCIOCUTANEOUS, TRUNK (WRVU 23) performed by Whit Nance MD at [facility] OR ??? PRO REOPEN RECENT ABD EXPLORATORY N/A 05/12/2020 @EXPLORATORY LAPAROTOMY, REOPENING OF RECENT (WRVU 17.63) performed by Meme Torres MD at [facility] OR ??? PRO REOPEN RECENT ABD EXPLORATORY Midline 05/16/2020 @EXPLORATORY LAPAROTOMY, REOPENING OF RECENT (WRVU 17.63) performed by Nakul Vega MD at [facility] OR ??? PRO REOPEN RECENT ABD EXPLORATORY Midline 05/18/2020 @EXPLORATORY LAPAROTOMY, REOPENING OF RECENT (WRVU 17.63) performed by Marco Silver MD at [facility] OR ? ? PRO REPAIR AA HERNIA INITIAL > 10 CM REDUCIBLE N/A 06/01/2022 REPAIR ANT. ABDOMINAL HERNIA(S) (IE, EPIGASTRIC, INCISIONAL, VENTRAL, UMBILICAL, SPIGELIAN), INITIAL, W-WO MESH; GREATER THAN 10 CM, REDUCIBLE (WRVU 13.94) performed by Whit Nance MD at [facility] MAIN OR ??? PRO REPAIR PERF DUOD/JIMENA ULC-WND/INJ N/A 05/11/2020 GASTRORRHAPHY, SUTURE OF PERFORATED, ULCER, WOUND, INJURY (WRVU 22.83) performed by Meme Torres MD at [facility] MAIN OR ??? PRO RESECT SMALL INTEST, SINGL RESEC/ANAS N/A 05/12/2020 @BOWEL RESECTION, SMALL INTESTINE SINGLE ANASTOMOSIS (WRVU 20.82) performed by Meme Torres MD at [facility] MAIN OR ??? PRO SUTURE ABD WALL-DEHIS/EVISCER Midline 05/20/2020 @SUTURE, SECONDARY, OF ABD WALL FOR EVISCERATION OR DEHISCENCE (WRVU 12.41) performed by Antonio Akbar MD at [facility] MAIN OR ? ? PRO UNLISTED PX ABD PRTM&OMENTUM N/A 05/20/2020 SUTURE OMENTUM (WRVU 11.1) performed by Antonio Akbar MD at [facility] OR ??? PRO UNLISTED PX ABDOMEN MUSCULOSKELETAL SYSTEM Midline 05/16/2020 WOUND CLOSURE, ABDOMINAL, PARTIAL W/ WOUND VAC (WRVU 6.39) performed by Nakul Vega MD at [facility] OR ??? PRO UPPER GI ENDOSCOPY, BIOPSY N/A 11/25/2020 EGD WITH BIOPSY (WRVU 2.49) performed by Kervin Rubio MD at [facility] ENDOSCOPY Social History: Patient lives in [place], [place] with her son and dxxedywz-fe-tvt and states her qazyxygx-le-sxj will be able to care for/assist her. Home Setup: ramped entrance, 2 story home with bedroom on the main floor. Walk- in shower. DME: crutches, wheelchair, prosthetic Baseline ADL/Mobility: independent with ADLs and assistance from family with IADLs. Precautions/Special Considerations: Full code. Risk for falls. Risk for delirium. MEDICAL CERTIFICATION SPECIALIST. Wound vac. Slightly hard of hearing. Limit bending, lifting and twisting. Lee catheter. Subjective: Oh, my hyagmpwx-lm-xbn already has everything taken care of. Objective: Seen today for OT evaluation. Chart reviewed. RN cleared patient to be seen by OT. Patient received semi-recumbent in bed and agreeable to therapy. At end of the session, patient left sitting in her wheelchair with all needs within reach. RN updated at end of session. Cognitive Status/Behavior: ?? Behavior / Mood: alert and cooperative ?? Alert and oriented to: person, place, time and situation ?? Follows commands: multi step, requires increased time and requires repetition ?? Attention: requires cues to redirect ?? Safety awareness: Fair ?? Pleasant and willing Vision & Perception: ?? WNL / WFL Communication: Clear speech, slightly hard of hearing Range of motion, strength, coordination: Hand dominance: right Bilateral UEs are within functional limitations LE limitations: R AKA, functional at this time Sensation: will continue to assess Activities of Daily Living: Self-feeding: independent Grooming: independent Dressing: demonstrates ability to complete with SBA Bathing: demonstrates ability to complete with SBA in sitting Toileting: Transfer: SBA for stand-pivot from bed to wheelchair, demonstrates good safety of setting brakes prior Hygiene: demonstrates ability to complete with set-up Functional Mobility: Supine to sit: SBA with HOB raised Sit to stand: SBA from bed to wheelchair Ambulation: completed wheelchair mobility with assistance for line management Stand to sit: SBA from bed to wheelchair Sit to supine: did not assess Balance: Sitting balance: independent static and dynamic unsupported Standing balance: limited standing; only complete stand-pivot transfer but demonstrated good strength and control. Vitals: VSS on RA- 93%; Asymptomatic throughout session. Pain: none 2/2 pain regimen at this time. Skin: abdominal incision, PIV, wound vac, lee catheter Education: patient have been educated on Role of occupational therapy/rehabilitation, Transfers, Assistive device/technique, ADL, Positioning, Safety, Brace Management, Functional Mobility, Activity pacing/Energy conservation, Recommendations and Discharge planning and verbalizes understanding. Patient status, treatment, and mobility recommendations discussed with nursing. Assessment: Pt has been seen for occupational therapy evaluation. Eliza Moya presents with thefollowing performance skill deficits and client factors: decreased activity tolerance, decreased sitting / standing balance, compromised mobility status and skin integrity. These performance deficitshave led to activity limitations and participation restrictions in the following areas of occupation: dressing, bathing, toileting, transfers / mobility, rest / sleep, home management, leisure and community mobility. As long as patient's pain is controlled is demonstrates good ability to complete functional transfers and ADLs. She will benefit from OT to review compensatory strategies and caregiver training. Pt would benefit from further inpatient OT interventions to address performance deficits and maximize participation and independence with occupations of daily living. Equipment needs at discharge: to be determined (likely none) Anticipated Discharge Dispostion: home with home health (pending progress and pain control) Other Recommendations: Open shades and turn on lights during the day/lights off at night, Set-up patient with ADL tasks, allow patient to complete ADL tasks as independently as possible Assist patient to the commode (no bed wilkes) Provide choices as able, encourage safe coping skills (such as music, reading, coloring, word search, journaling) Have patient sit up in recliner and wheelchair during the day as much as possible Sit upright for all meals Mobilize in wheelchair as tolerated Other Recommendations: No other consults recommended at this time. Goals: To be achieved by 06/10/2022. Patient will transfer to her wheelchair independently and mobilize to complete grooming at the sink. Patient will dress lower body indep with adaptive equipment prn. Patient will mobilize to the bathroom and transfer to the toilet with supervision. Patient will complete renato-care independently and least restrictive assistive device. Patient's caregiver will demonstrate safe and ergonomic ways to care for the patient as needed. Patient will demonstrate energy conservation principals with all ADLs indep. Plan: OT: Therapy Frequency (OT): 1-3 more times Planned OT interventions: Role of occupational therapy/rehabilitation, Transfers, Assistive device/technique, Adaptive equipment training, ADL, Exercise, Breathing exercises, Positioning, Safety, Functional Mobility, Activity pacing/Energy conservation, Balance, Recommendations, Family training andDischarge planning. Total Minutes, Occupational Therapy: 22 ([id number] (evaluation)) 2017 OT Evaluation Code Rationale: ?? Diagnosis & Pertinent Co-Morbidities affecting Plan of Care: see PMHx ?? Occupational Profile & Client History: Brief Expanded Extensive X ?? Assessment of Occupational Performance: 1-3 performance deficits 3-5 performance deficits X 5 + performance deficits ?? Clinical Decision Making: Low Moderate High X Clinical decision making of moderate complexity using standardized patient assessment instrument and measurable assessment of functional outcome. Pager: [phone] Charity Daniel OT 06/02/2022 Occupational Therapy Rehabilitation Department * Initial Assessments - Farrah Palomares RN - 06/02/2022 9:12 AM EDT Office of Care Management Initial Assessment Medical record reviewed. Plan of care and patient status discussed with direct care Registered Nurse and/or Care Team in multidisciplinary rounds. Reason for Hospitalization: REPAIR ANT. ABDOMINAL HERNIA(S) (IE, EPIGASTRIC, INCISIONAL, VENTRAL, UMBILICAL, SPIGELIAN), INITIAL, W-WO MESH; GREATER THAN 10 CM, REDUCIBLE (WRVU 13.94) MODIFIER MESH,BARD SOFT MESH FLAP, MYOCUTANEOUS OR FASCIOCUTANEOUS, TRUNK (WRVU 23) MODIFIER MESH IMPLANTATION Last COVID test: Lab Results Component Value Date [id number] Not Detected 06/01/2021 Present on Admission: ??? Ventral hernia Hospitalizations Within the Past 30 Days: no previous admission in last 30 days Patient receiving hospital care under Inpatient status. Admission order reviewed. Health/Prescription Coverage: Primary Insurance: MEDICARE Payor: MEDICARE / Plan: MEDICARE PART A & B / Product Type: *No Product type* / Secondary Insurance: MEDICAID [place] ONLY if patient has Medicare A&B - Does this patient have secondary insurance?: Yes (medicaid [place]) ; Prescription Coverage: Preferred Pharmacy: [facility] - [place], [place] - [address] [facility] [address] [facility] [id number] Advance Care Planning: Attempt Cardiopulmonary Resuscitation - Inpatient Received -Advanced Directive: Yes, on file Who is your DPOA-HC?: Child Current Functional Ability: Assistive Equipment (uses wheel chair and walker) Functional Status Prior to Admission: Assistive Equipment (wheelchair and walker) Home Environment: Others in the home: child(carmita), adult. Current Living Arrangements: home/apartment/condo. Accessibility Concerns:has an electric chair to enter the house.. Current DME: cane - quad, wheelchair - manual [address] [address] Social & Family Supports: All names listed below confirmed with patient as current and correct Extended Emergency Contact Information Primary Emergency Contact: Denise Moya Address: [address] [place] [address] [facility] Relation: Son/Wxeklrua-tf-qmi Secondary Emergency Contact: Twin Moya Address: [address] [address] [facility] Mobile Relation: Child Current Care Provided by: self Transportation: no concerns Transportation Anticipated: family or friend will provide Assessment: Patient with no apparent RNCM/SW needs at this time. No housing, transportation, insurance, resources concerns identified at this time. Supports in place to achieve a safe post-hospital transition. No identified barriers to accessing necessary care and/or follow-up after discharge. Plan: Pt. Will work with PT/OT today. Patient to d/c to home via car when medically ready. Registered Nurse Air Valve Repairer / Insulator Cutter And Former will continue to follow patient???s progress and remain available if situation changes for coordination of care, psychosocial support and/or discharge planning. Office of Care Management VICTOR M Grimes,fashion marketer Team Case Management Pager #[phone] * Op Note - Whit Nance MD - 06/01/2022 9:09 AM EDT [facility] [place] Patient Name: Eliza Moya : [id number] MR#: [id number] Case Date: 06/01/2022 Surgeon: Surgeon(s) and Role: * Whit Nance MD - Primary * Ramona Arvizu MD - Resident Preoperative diagnosis: Incisional hernia Postoperative diagnosis: Incisional hernia Procedure(s) (LRB): REPAIR ANT. ABDOMINAL HERNIA(S) (IE, EPIGASTRIC, INCISIONAL, VENTRAL, UMBILICAL, SPIGELIAN), INITIAL, W-WO MESH; GREATER THAN 10 CM, REDUCIBLE (WRVU 13.94) (N/A) MODIFIER MESH,BARD SOFT MESH (N/A) FLAP, MYOCUTANEOUS OR FASCIOCUTANEOUS, TRUNK (WRVU 23) (N/A) MODIFIER MESH IMPLANTATION (N/A) Findings: Large incisional hernia with vietnamese cheese hernia defects along entire midline incision. Hernia sac kept intact and bilateral transversus abdominus release completed. Bard soft [id number] mesh placed in the retrorectus space. Drain sits on top of mesh. Anesthesia: General Estimated Blood Loss: 150 mL Specimens removed during surgery: None Drains: 19fr pratima drain sits on top of mesh in retrorectus space. Surgical Closure: Primary Closure - skin incision is closed but with open spaces for wires, ade, drains or other devices Disposition: awakened from anesthesia, extubated and taken to the recovery room in a stable condition, having suffered no apparent untoward event. Condition: doing well without problems (Please see the Surgical Encounter Summary for any Implant and Specimen details pertinent to this patient.) HPI/Surgical Indications: This is a 57 yo woman who has a history of a complicated and prolonged hospital admission for a perforated duodenal ulcer in May 2020. She required multiple exploratory laparotomies and had an open abdomen during this hospital stay. Ultimately her fascia was closed but she subsequently developed a large incisional hernia. I have followed her for nearly a year in clinicand she has quit smoking and has been optimized from a cardiopulmonary standpoint. The decision wasmade to proceed with open incisional hernia repair. Procedure Description: The patient was seen in preop holding and consent was confirmed. She had a thoracic epidural placed by the Acute Pain Service. Subcutaneous heparin was administered for DVT prophylaxis after the epidural was placed. The patient was then taken to the Operating Room, positionedon the table supine. Preoperative antibiotics were given and SCDs applied. General endotracheal anesthesia was induced without complication. The abdomen was then prepped and draped in the usual sterile fashion to begin. A timeout was performed prior to the procedure to confirm the correct patient site and procedure to be performed, all were in agreement. A midline incision was made and dissectionwas carried down using a combination of sharp dissection and electrocautery. The incision was carried cephalad and caudad. The hernia sac was identified and fully reduced. The sac was kept intact except for a small portion in the lower abdomen which was closed with vicryl sutures. The preperitoneal space was dissected laterally on both sides to expose the abdominal wall and posterior rectus sheath. Once the abdominal wall was clear we proceeded with our retrorectus release. Beginning on the left side the posterior rectus fascia was incised just 1 cm lateral to the linea alba. This dissection was carried down cephalad and caudad in a retrorectus plane was developed. Our dissection extended laterally to the level of the linea semilunaris. Neurovascular bundles were identified and preserved. We then proceeded with the same dissection on the right side. After the retrorectus release, there was too much tension and we were unable to obtain adequate closure. Therefore, we proceeded with a transversus abdominus release bilaterally. Starting on the right, the posterior lamellae of the internal oblique was incised and the transversus abdominus muscle was divided. This was extended cephalad and caudad and then as lateral as possible. The same dissection was carried out on the left side. The two planes were joined caudad with care to avoid injury to the bladder, and cephalad with care to preserve the linea alba. After this release, we were able to approximate the posterior fascia without tension. The posterior fascia was closed using 2-0 PDS. Small defects in the posterior rectus sheath were closed with 3-0 Vicryl. The pocket was irrigated and hemostasis was achieved. The space measured and a piece of Bard soft polypropylene mesh 30x30 cm was used and placed in the retrorectus space. A 19 fr pratima drain was placed over the mesh and exits the abdomen in the left lower quadrant. The drain was secured with 2-0 Prolene. We then closed the anterior fascia, incorporating the mesh at the superior and inferior most aspects of the incision using #1 PDS. The subcutaneous tissues were re-approximated using 3-0 Vicryl suture.Skin was closed using tamra and a Prevena wound vac was placed. The patient tolerated the procedure well. At the end of the procedure all sponge, instrument, and needle counts were correct and verified by nursing x2. The patient was awoken from anesthesia without complication and transported to the PACU in stable condition. Whit Nance MD Attestation: Case Date: 06/01/2022 I was present and I participated during the entire procedure (does not need to include opening and closing). Whit Nance MD 06/01/2022 Surgical Infection Prevention Bundle Used? N/A documented in this encounter Plan of Treatment Not on file documented as of this encounter Procedures Procedure Name Priority Date/Time Associated Diagnosis Comments HEMOGRAM Routine 06/05/2022 3:15 AM EDT DIFFERENTIAL, AUTOMATED Routine 06/05/2022 3:15 AM EDT HC CBC,PLT & AUTO DIFF Routine 06/05/2022 3:15 AM EDT HC PHOSPHORUS, SERUM Routine 06/05/2022 3:15 AM EDT HC MAGNESIUM, SERUM Routine 06/05/2022 3 :15 AM EDT BASIC METABOLIC PANEL Routine 06/05/2022 3:15 AM EDT HEMOGRAM Timed 06/04/2022 9:20 AM EDT DIFFERENTIAL, AUTOMATED Timed 06/04/2022 9:20 AM EDT HC CBC,PLT & AUTO DIFF Timed 06/04/2022 9:20 AM EDT XR CHEST PA AND LATERAL STAT 06/04/2022 9:04 AM EDT HEMOGRAM Routine 06/04/2022 3:34 AM EDT DIFFERENTIAL, AUTOMATED Routine 06/04/2022 3:34 AM EDT HC VENIPUNCTURE Routine 06/04/2022 3:34 AM EDT HC PHOSPHORUS, SERUM Routine 06/04/2022 3:34 AM EDT HC MAGNESIUM, SERUM Routine 06/04/2022 3 :34 AM EDT BASIC METABOLIC PANEL Routine 06/04/2022 3:34 AM EDT HEMOGRAM Routine 06/03/2022 3:59 AM EDT DIFFERENTIAL, AUTOMATED Routine 06/03/2022 3:59 AM EDT HC CBC,PLT & AUTO DIFF Routine 06/03/2022 3:59 AM EDT HC PHOSPHORUS, SERUM Routine 06/03/2022 3:59 AM EDT HC MAGNESIUM, SERUM Routine 06/03/2022 3 :59 AM EDT BASIC METABOLIC PANEL Routine 06/03/2022 3:59 AM EDT HEMOGRAM Timed 06/02/2022 9:38 AM EDT DIFFERENTIAL, AUTOMATED Timed 06/02/2022 9:38 AM EDT HC CBC,PLT & AUTO DIFF Timed 06/02/2022 9:38 AM EDT BASIC METABOLIC PANEL Timed 06/02/2022 9:38 AM EDT SCAN, PERIPHERAL BLOOD Routine 06/02/2022 3:47 AM EDT HEMOGRAM Routine 06/02/2022 3:47 AM EDT DIFFERENTIAL, AUTOMATED Routine 06/02/2022 3:47 AM EDT HC CBC,PLT & AUTO DIFF Routine 06/02/2022 3:47 AM EDT HC PHOSPHORUS, SERUM Routine 06/02/2022 3:47 AM EDT HC MAGNESIUM, SERUM Routine 06/02/2022 3 :47 AM EDT BASIC METABOLIC PANEL Routine 06/02/2022 3:47 AM EDT HEMOGRAM Routine 06/01/2022 3:38 PM EDT DIFFERENTIAL, AUTOMATED Routine 06/01/2022 3:38 PM EDT HC CBC,PLT & AUTO DIFF Routine 06/01/2022 3:38 PM EDT HC PHOSPHORUS, SERUM Routine 06/01/2022 3:38 PM EDT HC MAGNESIUM, SERUM Routine 06/01/2022 3 :38 PM EDT BASIC METABOLIC PANEL Routine 06/01/2022 3:38 PM EDT FLAP, MYOCUTANEOUS OR FASCIOCUTANEOUS, TRUNK Routine 06/01/2022 2:30 PM EDT Incisional hernia, without obstruction or gangrene BLOOD GAS VENOUS POC Routine 06/01/2022 9:19 AM EDT XR FLUORO NO RAD <1HR - OR USE Routine 06/01/2022 7:56 AM EDT MODIFIER MESH IMPLANTATION 06/01/2022 7:54 AM EDT Incisional hernia, without obstruction or gangrene Muscle-Skin Flap, Trunk ([id number]) 06/01/2022 7:54 AM EDT Incisional hernia, without obstruction or gangrene MODIFIER MESH,BARD SOFT MESH 06/01/2022 7:54 AM EDT Incisional hernia, without obstruction or gangrene Repair AA Hernia Initial > 10 Cm Reducible ([id number]) 06/01/2022 7:54 AM EDT Incisional hernia, without obstruction or gangrene IMPLANTABLE DEVICES SCAN 06/01/2022 12:00 AM EDT documented in this encounter Results * (ABNORMAL) Differential, Automated (06/05/2022 3:15 AM EDT) Neutrophil % 66.7 % [facility] Neutrophil Absolute 8.11(H) 1.70 - 6.10 x10(3)/mc L [facility] Lymph % 17.3 % [facility] Lymphocytes Abs 2.1 0.9 - 3.2 x10(3)/mc L [facility] Monocyte % 8.2 % [facility] Monocyte Abs 1.0(H) 0.3 - 0.9 x10(3)/mc L [facility] Eos % 6.4 % [facility] Eosinophils Abs 0.8(H) 0.0 - 0.4 x10(3)/ L [facility] Basophil % 0.8 % [facility] Baso Absolute 0.1 0.0 - 0.1 x10(3)/ L [facility] Immature Gran % 0.60 % [facility] Comment: Immature granulocytes(IG's)percentage and absolute count will include metamyelocytes, myelocytes, and promyelocytes. Blood smears from CBCs yielding IG's will be scanned manually for concordance. If this scan disagrees with the automated IG or if promyelocytes are noted, a manual differential will be performed. Immature Gran Absolute 0.07(H) 0.00 - 0.04 x10(3)/ L [facility] Blood 06/05/2022 3:15 AM EDT 06/05/2022 3:37 AM EDT Narrative Resulting Agency Comment Spec In Lab Ramona Arvizu MD HEMATOLOGY ORDERABLE S Performing Organization Address City/State/[facility] Co de Phone Number [facility] [place] [address] * (ABNORMAL) Hemogram (06/05/2022 3:15 AM EDT) White Blood Cell 12.2(H) 4.0 - 9.5 x10(3)/ L [facility] Red Blood Cell 3.66(L) 4.00 - 5.21 x10(6)/ L [facility] Hemoglobin 9.8(L) 11.7 - 15.5 g/dL [facility] Hematocrit 30.9(L) 35.7 - 45.8 % [facility] Mean Cell Volume 84.4 82.6 - 94.4 fL [facility] Mean Cell Hemoglobin 26.8(L) 27.1 - 32.0 pg [facility] Mean Cell Hemoglobin Concentration 31.7 31.7 - 35.0 g/dL [facility] Platelet 482(H) 145 - 357 x10(3)/mc L [facility] RDW Standard Deviation 48.5(H) 37.0 - 46.0 fL [facility] RDW coefficient of variation 15.8(H) 11.5 - 14.1 % [facility] Mean Platelet Volume 9.5 7.6 - 12.9 fL [facility] NRBC% auto 0.0 % [facility] NRBC Absolute 0.000 0.000 - 0.000 x10(3)/mc L [facility] Blood 06/05/2022 3:15 AM EDT 06/05/2022 3:37 AM EDT Narrative Resulting Agency Comment Spec In Lab Ramona Arvizu MD HEMATOLOGY ORDERABLE S Performing Organization Address [facility] Co de Phone Number [facility] [place] [address] * Phosphorus (06/05/2022 3:15 AM EDT) Phosphorus 3.5 2.5 - 4.5 mg/dL [facility] Blood 06/05/2022 3:15 AM EDT 06/05/2022 3:37 AM EDT Narrative Resulting Agency Comment Spec In Lab Whit Nance MD CHEMISTRY ORDERABLES Performing Organization Address [facility] Co de Phone Number [facility] [place] [address] * Magnesium (06/05/2022 3:15 AM EDT) Magnesium 0.84 0.69 - 1.07 mmol/L [facility] Blood 06/05/2022 3:15 AM EDT 06/05/2022 3:37 AM EDT Narrative Resulting Agency Comment Spec In Lab Whit Nance MD CHEMISTRY ORDERABLES Performing Organization Address [facility] Co de Phone Number [facility] [place] [address] * (ABNORMAL) Basic Metabolic Panel (non-fasting) (06/05/2022 3:15 AM EDT) Glucose 130 65 - 199 mg/dL [facility] Comment:Diabetes: >=200 mg/d L plus symptoms Blood Urea Nitrogen 7(L) 8 - 18 mg/dL [facility] Creatinine 0.61(L) 0.70 - 1.20 mg/dL [facility] Sodium 138 135 - 145 mmol/L [facility] Potassium 3.9 3.5 - 5.0 mmol/L [facility] Comment: Please note: ??Patients with WBC >100,000 may have falsely elevated Potassium levels. ??For accurate Potassium quantification in these patients send serum separator tube (gold top) for subsequent determinations. ??Contact the Clinical Chemistry Laboratory if there are any questions. Chloride 105 98 - 107 mmol/L [facility] Carbon Dioxide 25 22 - 31 mmol/L [facility] Anion Gap 8 5 - 15 mmol/L [facility] Calcium 8.3(L) 8.5 - 10.5 mg/dL [facility] Est Glomerular Filtration Rate 103 >=60 mL/min/1. 73 m?? [facility] Comment: This patient's estimated GFR was [...] and symptoms in addition to eGFR. Blood 06/05/2022 3:15 AM EDT 06/05/2022 3:37 AM EDT Narrative Resulting Agency Comment Spec In Lab Whit Nance MD CHEMISTRY ORDERABLES [facility] [place] [address] * (ABNORMAL) Differential, Automated (06/04/2022 9:20 AM EDT) Neutrophil % 75.0 % [facility] Neutrophil Absolute 9.79(H) 1.70 - 6.10 x10(3)/mc L [facility] Lymph % 13.9 % [facility] Lymphocytes Abs 1.8 0.9 - 3.2 x10(3)/ L [facility] Monocyte % 6.5 % [facility] Monocyte Abs 0.8 0.3 - 0.9 x10(3)/ L [facility] Eos % 3.4 % [facility] Eosinophils Abs 0.4 0.0 - 0.4 x10(3)/[facility] Basophil % 0.7 % [facility] Baso Absolute 0.1 0.0 - 0.1 x10(3)/ L [facility] Immature Gran % 0.50 % [facility] Comment: Immature granulocytes(IG's)percentage and absolute count will include metamyelocytes, myelocytes, and promyelocytes. Blood smears from CBCs yielding IG's will be scanned manually for concordance. If this scan disagrees with the automated IG or if promyelocytes are noted, a manual differential will be performed. Immature Gran Absolute 0.06(H) 0.00 - 0.04 x10(3)/ L [facility] Blood 06/04/2022 9:20 AM EDT 06/04/2022 9:31 AM EDT Narrative Resulting Agency Comment Spec In Lab Steph BEJARANO HEMATOLOGY ORDERABL ES [facility] [place] [address] * (ABNORMAL) Hemogram (06/04/2022 9:20 AM EDT) White Blood Cell 13.0(H) 4.0 - 9.5 x10(3)/ L [facility] Red Blood Cell 3.75(L) 4.00 - 5.21 x10(6)/ L [facility] Hemoglobin 10.1(L) 11.7 - 15.5 g/dL [facility] Hematocrit 33.0(L) 35.7 - 45.8 % [facility] Mean Cell Volume 88.0 82.6 - 94.4 fL [facility] Mean Cell Hemoglobin 26.9(L) 27.1 - 32.0 pg [facility] Mean Cell Hemoglobin Concentration 30.6(L) 31.7 - 35.0 g/dL [facility] Platelet 410(H) 145 - 357 x10(3)/mc L [facility] RDW Standard Deviation 50.5(H) 37.0 - 46.0 fL [facility] RDW coefficient of variation 15.7(H) 11.5 - 14.1 % [facility] Mean Platelet Volume 9.4 7.6 - 12.9 fL [facility] NRBC% auto 0.0 % [facility] NRBC Absolute 0.000 0.000 - 0.000 x10(3)/[facility] Blood 06/04/2022 9:20 AM EDT 06/04/2022 9:31 AM EDT Narrative Resulting Agency Comment Spec In Lab Steph BEJARANO HEMATOLOGY ORDERABL ES Performing Organization Address City/State/[facility] Co de Phone Number [facility] [place] [address] * XR Chest PA & Lateral (Generic) (06/04/2022 9:04 AM EDT) Anatomical Region Laterality Modality Chest N/A Digital Radiogra phy Impressions 06/04/2022 9:15 AM EDT Bibasilar linear atelectasis Thank you for letting us participate in the care of this patient. ??If you are a health care provider and have any questions regarding this report, please contact the number below. ??For patients who have questions please contact the health rn intensive care unit that requested your imaging first. ? Electronically signed by: Desi Daniel MD, [facility] ([phone]), at 06/04/2022 9:15 AM Narrative 06/04/2022 9:15 AM EDT EXAMINATION: XR CHEST PA AND LATERAL (GENERIC) CLINICAL HISTORY: persistent post-op oxygen needs and cough h/o COPD; s/p open ventral hernia repair now POD#3 TECHNIQUE: PA and lateral views of the chest COMPARISON: 06/11/2020 FINDINGS: Bibasilar linear atelectasis. The remainder the lungs are clear. No pulmonary edema, effusion or pneumonia identified. No pneumothorax Procedure Note Desi Daniel MD - 06/04/2022 EXAMINATION: XR CHEST PA AND LATERAL (GENERIC) CLINICAL HISTORY: persistent post-op oxygen needs and cough h/o COPD; s/p open ventral hernia repair now POD#3 TECHNIQUE: PA and lateral views of the chest COMPARISON: 06/11/2020 FINDINGS: Bibasilar linear atelectasis. The remainder the lungs are clear. Nopulmonary edema, effusion or pneumonia identified. No pneumothorax IMPRESSION Bibasilar linear atelectasis Thank you for letting us participate in the care of this patient. If youare a health care provider and have any questions regarding this report,please contact the number below. For patients who have questions please contactthe health rn intensive care unit that requested your imaging first. Electronically signed by: Desi Daniel MD, [facility]([phone]), at 06/04/2022 9:15 AM Whit Nance MD IMG DX ORDERABLES * (ABNORMAL) Differential, Automated (06/04/2022 3:34 AM EDT) Neutrophil % 72.3 % [facility] Neutrophil Absolute 9.31(H) 1.70 - 6.10 x10(3)/mc L [facility] Lymph % 14.3 % [facility] Lymphocytes Abs 1.8 0.9 - 3.2 x10(3)/mc L [facility] Monocyte % 9.5 % [facility] Monocyte Abs 1.2(H) 0.3 - 0.9 x10(3)/mc L [facility] Eos % 2.6 % [facility] Eosinophils Abs 0.3 0.0 - 0.4 x10(3)/mc L [facility] Basophil % 0.6 % [facility] Baso Absolute 0.1 0.0 - 0.1 x10(3)/mc L [facility] Immature Gran % 0.70 % [facility] Comment: Immature granulocytes(IG's)percentage and absolute count will include metamyelocytes, myelocytes, and promyelocytes. Blood smears from CBCs yielding IG's will be scanned manually for concordance. If this scan disagrees with the automated IG or if promyelocytes are noted, a manual differential will be performed. Immature Gran Absolute 0.09(H) 0.00 - 0.04 x10(3)/ L [facility] Blood 06/04/2022 3:34 AM EDT 06/04/2022 3:56 AM EDT Narrative Resulting Agency Comment Spec In Lab Ramona Arvizu MD HEMATOLOGY ORDERABLE S [facility] [place] [address] * (ABNORMAL) Hemogram (06/04/2022 3:34 AM EDT) White Blood Cell 12.9(H) 4.0 - 9.5 x10(3)/mc L [facility] Red Blood Cell 3.61(L) 4.00 - 5.21 x10(6)/mc L [facility] Hemoglobin 9.7(L) 11.7 - 15.5 g/dL [facility] Hematocrit 30.4(L) 35.7 - 45.8 % [facility] Mean Cell Volume 84.2 82.6 - 94.4 fL [facility] Mean Cell Hemoglobin 26.9(L) 27.1 - 32.0 pg [facility] Mean Cell Hemoglobin Concentration 31.9 31.7 - 35.0 g/dL [facility] Platelet 361(H) 145 - 357 x10(3)/mc L [facility] RDW Standard Deviation 47.5(H) 37.0 - 46.0 fL [facility] RDW coefficient of variation 15.6(H) 11.5 - 14.1 % [facility] Mean Platelet Volume 9.3 7.6 - 12.9 fL [facility] NRBC% auto 0.0 % [facility] NRBC Absolute 0.000 0.000 - 0.000 x10(3)/mc L [facility] Blood 06/04/2022 3:34 AM EDT 06/04/2022 3:56 AM EDT Narrative Resulting Agency Comment Spec In Lab Ramona Arvizu MD HEMATOLOGY ORDERABLE S Performing Organization Address [facility]/ZIP Co de Phone Number [facility] [place] [address] * Phosphorus (06/04/2022 3:34 AM EDT) Phosphorus 2.5 2.5 - 4.5 mg/dL [facility] Blood 06/04/2022 3:34 AM EDT 06/04/2022 3:56 AM EDT Narrative Resulting Agency Comment Spec In Lab Whit Nance MD CHEMISTRY ORDERABLES Performing Organization Address [facility] Co de Phone Number [facility] [place] [address] * Magnesium (06/04/2022 3:34 AM EDT) Magnesium 0.91 0.69 - 1.07 mmol/L [facility] Blood 06/04/2022 3:34 AM EDT 06/04/2022 3:56 AM EDT Narrative Resulting Agency Comment Spec In Lab Whit Nance MD CHEMISTRY ORDERABLES Performing Organization Address [facility] Co de Phone Number [facility] [place] [address] * (ABNORMAL) Basic Metabolic Panel (non-fasting) (06/04/2022 3:34 AM EDT) Glucose 180 65 - 199 mg/dL [facility] Comment:Diabetes: >=200 mg/d L plus symptoms Blood Urea Nitrogen 10 8 - 18 mg/dL [facility] Creatinine 0.57(L) 0.70 - 1.20 mg/dL [facility] Sodium 140 135 - 145 mmol/L [facility] Potassium 3.8 3.5 - 5.0 mmol/L [facility] Comment: Please note: ??Patients with WBC >100,000 may have falsely elevated Potassium levels. ??For accurate Potassium quantification in these patients send serum separator tube (gold top) for subsequent determinations. ??Contact the Clinical Chemistry Laboratory if there are any questions. Chloride 106 98 - 107 mmol/L [facility] Carbon Dioxide 27 22 - 31 mmol/L [facility] Anion Gap 7 5 - 15 mmol/L [facility] Calcium 7.8(L) 8.5 - 10.5 mg/dL [facility] Est Glomerular Filtration Rate 105 >=60 mL/min/1. 73 m?? [facility] Comment: This patient's estimated GFR was [...] and symptoms in addition to eGFR. Blood 06/04/2022 3:34 AM EDT 06/04/2022 3:56 AM EDT Narrative Resulting Agency Comment Spec In Lab Whit Nance MD CHEMISTRY ORDERABLES [facility] [place] [address] * (ABNORMAL) Differential, Automated (06/03/2022 3:59 AM EDT) Neutrophil % 71.2 % [facility] Neutrophil Absolute 8.83(H) 1.70 - 6.10 x10(3)/mc L [facility] Lymph % 15.1 % [facility] Lymphocytes Abs 1.9 0.9 - 3.2 x10(3)/mc L [facility] Monocyte % 11.5 % [facility] Monocyte Abs 1.4(H) 0.3 - 0.9 x10(3)/ L [facility] Eos % 0.8 % [facility] Eosinophils Abs 0.1 0.0 - 0.4 x10(3)/ L [facility] Basophil % 0.8 % [facility] Baso Absolute 0.1 0.0 - 0.1 x10(3)/ L [facility] Immature Gran % 0.60 % [facility] Comment: Immature granulocytes(IG's)percentage and absolute count will include metamyelocytes, myelocytes, and promyelocytes. Blood smears from CBCs yielding IG's will be scanned manually for concordance. If this scan disagrees with the automated IG or if promyelocytes are noted, a manual differential will be performed. Immature Gran Absolute 0.07(H) 0.00 - 0.04 x10(3)/ L [facility] Blood 06/03/2022 3:59 AM EDT 06/03/2022 4:06 AM EDT Narrative Resulting Agency Comment Spec In Lab Ramona Arvizu MD HEMATOLOGY ORDERABLE S Performing Organization Address City/State/[facility] Co de Phone Number [facility] [place] [address] * (ABNORMAL) Hemogram (06/03/2022 3:59 AM EDT) White Blood Cell 12.4(H) 4.0 - 9.5 x10(3)/mc L [facility] Red Blood Cell 3.95(L) 4.00 - 5.21 x10(6)/mc L [facility] Hemoglobin 10.6(L) 11.7 - 15.5 g/dL [facility] Hematocrit 33.7(L) 35.7 - 45.8 % [facility] Mean Cell Volume 85.3 82.6 - 94.4 fL [facility] Mean Cell Hemoglobin 26.8(L) 27.1 - 32.0 pg [facility] Mean Cell Hemoglobin Concentration 31.5(L) 31.7 - 35.0 g/dL [facility] Platelet 317 145 - 357 x10(3)/mc L [facility] RDW Standard Deviation 47.9(H) 37.0 - 46.0 fL [facility] RDW coefficient of variation 15.3(H) 11.5 - 14.1 % [facility] Mean Platelet Volume 9.1 7.6 - 12.9 fL [facility] NRBC% auto 0.0 % [facility] NRBC Absolute 0.000 0.000 - 0.000 x10(3)/mc L [facility] Blood 06/03/2022 3:59 AM EDT 06/03/2022 4:06 AM EDT Narrative Resulting Agency Comment Spec In Lab Ramona Arvizu MD HEMATOLOGY ORDERABLE S Performing Organization Address City/[facility]/ZIP Co de Phone Number [facility] [place] [address] * Phosphorus (06/03/2022 3:59 AM EDT) Phosphorus 2.5 2.5 - 4.5 mg/dL [facility] Comment: Result changed from 1.9 to 2.5 due to analytical error per Dr. Mathis. Corrected from 1.9 mg/dL [LOW] on 06/08/22 14:19:10 EDT by Darrin Alicia Blood 06/03/2022 3:59 AM EDT 06/03/2022 4:06 AM EDT Narrative Resulting Agency Comment Spec In Lab Whit Nance MD CHEMISTRY ORDERABLES [facility] [place] [address] * Magnesium (06/03/2022 3:59 AM EDT) Magnesium 0.79 0.69 - 1.07 mmol/L [facility] Blood 06/03/2022 3:59 AM EDT 06/03/2022 4:06 AM EDT Narrative Resulting Agency Comment Spec In Lab Whit Nance MD CHEMISTRY ORDERABLES [facility] [place] [address] * (ABNORMAL) Basic Metabolic Panel (non-fasting) (06/03/2022 3:59 AM EDT) Glucose 146 65 - 199 mg/dL [facility] Comment:Diabetes: >=200 mg/d L plus symptoms Blood Urea Nitrogen 8 8 - 18 mg/dL [facility] Creatinine 0.66(L) 0.70 - 1.20 mg/dL [facility] Sodium 138 135 - 145 mmol/L [facility] Potassium 3.7 3.5 - 5.0 mmol/L [facility] Comment: Please note: ??Patients with WBC >100,000 may have falsely elevated Potassium levels. ??For accurate Potassium quantification in these patients send serum separator tube (gold top) for subsequent determinations. ??Contact the Clinical Chemistry Laboratory if there are any questions. Chloride 104 98 - 107 mmol/L [facility] Carbon Dioxide 25 22 - 31 mmol/L [facility] Anion Gap 9 5 - 15 mmol/L [facility] Calcium 7.9(L) 8.5 - 10.5 mg/dL [facility] Est Glomerular Filtration Rate 101 >=60 mL/min/1. 73 m?? [facility] Comment: This patient's estimated GFR was [...] and symptoms in addition to eGFR. Blood 06/03/2022 3:59 AM EDT 06/03/2022 4:06 AM EDT Narrative Resulting Agency Comment Spec In Lab Whit Nance MD CHEMISTRY ORDERABLES Performing Organization Address City/[facility]/[place] [address] * (ABNORMAL) Differential, Automated (06/02/2022 9:38 AM EDT) Neutrophil % 67.3 % [facility] Neutrophil Absolute 8.65(H) 1.70 - 6.10 x10(3)/mc L [facility] Lymph % 18.7 % [facility] Lymphocytes Abs 2.4 0.9 - 3.2 x10(3)/mc L [facility] Monocyte % 12.3 % [facility] Monocyte Abs 1.6(H) 0.3 - 0.9 x10(3)/mc L [facility] Eos % 0.5 % [facility] Eosinophils Abs 0.1 0.0 - 0.4 x10(3)/mc L [facility] Basophil % 0.7 % [facility] Baso Absolute 0.1 0.0 - 0.1 x10(3)/mc L [facility] Immature Gran % 0.50 % [facility] Comment: Immature granulocytes(IG's)percentage and absolute count will include metamyelocytes, myelocytes, and promyelocytes. Blood smears from CBCs yielding IG's will be scanned manually for concordance. If this scan disagrees with the automated IG or if promyelocytes are noted, a manual differential will be performed. Immature Gran Absolute 0.07(H) 0.00 - 0.04 x10(3)/mc L [facility] Blood 06/02/2022 9:38 AM EDT 06/02/2022 10:01 AM EDT Narrative Resulting Agency Comment Spec In Lab Steph BEJARANO HEMATOLOGY ORDERABL ES Performing Organization Address City/[facility]/[place] [address] * (ABNORMAL) Hemogram (06/02/2022 9:38 AM EDT) White Blood Cell 12.8(H) 4.0 - 9.5 x10(3)/mc L [facility] Red Blood Cell 4.07 4.00 - 5.21 x10(6)/mc L [facility] Hemoglobin 10.9(L) 11.7 - 15.5 g/dL [facility] Hematocrit 34.1(L) 35.7 - 45.8 % [facility] Mean Cell Volume 83.8 82.6 - 94.4 fL [facility] Mean Cell Hemoglobin 26.8(L) 27.1 - 32.0 pg [facility] Mean Cell Hemoglobin Concentration 32.0 31.7 - 35.0 g/dL [facility] Platelet 400(H) 145 - 357 x10(3)/mc L [facility] RDW Standard Deviation 46.0 37.0 - 46.0 fL [facility] RDW coefficient of variation 15.2(H) 11.5 - 14.1 % [facility] Mean Platelet Volume 9.2 7.6 - 12.9 fL [facility] NRBC% auto 0.0 % [facility] NRBC Absolute 0.000 0.000 - 0.000 x10(3)/mc L [facility] Blood 06/02/2022 9:38 AM EDT 06/02/2022 10:01 AM EDT Narrative Resulting Agency Comment Spec In Lab Steph BEJARANO HEMATOLOGY ORDERABL ES [facility] [place] [address] * (ABNORMAL) Basic Metabolic Panel (non-fasting) (06/02/2022 9:38 AM EDT) Glucose 122 65 - 199 mg/dL [facility] Comment:Diabetes: >=200 mg/d L plus symptoms Blood Urea Nitrogen 12 8 - 18 mg/dL [facility] Creatinine 0.64(L) 0.70 - 1.20 mg/dL [facility] Sodium 135 135 - 145 mmol/L [facility] Potassium 3.7 3.5 - 5.0 mmol/L [facility] Comment: Please note: ??Patients with WBC >100,000 may have falsely elevated Potassium levels. ??For accurate Potassium quantification in these patients send serum separator tube (gold top) for subsequent determinations. ??Contact the Clinical Chemistry Laboratory if there are any questions. Chloride 101 98 - 107 mmol/L [facility] Carbon Dioxide 25 22 - 31 mmol/L [facility] Anion Gap 9 5 - 15 mmol/L [facility] Calcium 7.5(L) 8.5 - 10.5 mg/dL [facility] Est Glomerular Filtration Rate 102 >=60 mL/min/1. 73 m?? [facility] Comment: This patient's estimated GFR [...] and symptoms in addition to eGFR. Blood 06/02/2022 9:38 AM EDT 06/02/2022 10:01 AM EDT Narrative Resulting Agency Comment Spec In Lab Whit Nance MD CHEMISTRY ORDERABLES [facility] [place] [address] * Scan, Peripheral Blood (06/02/2022 3:47 AM EDT) Plat estimate Increased [facility] RBC Morphology Abnormal [facility] [place] Cells 1-5 /HPF [facility] Blood 06/02/2022 3:47 AM EDT 06/02/2022 4:32 AM EDT Narrative Resulting Agency Comment Spec In Lab Ramona Arvizu MD HEMATOLOGY ORDERABLE S Performing Organization Address City/[facility]/ZIP Co de Phone Number [facility] [place] [address] * (ABNORMAL) Differential, Automated (06/02/2022 3:47 AM EDT) Neutrophil % 72.9 % [facility] Neutrophil Absolute 10.33(H) 1.70 - 6.10 x10(3)/mc L [facility] Lymph % 14.1 % [facility] Lymphocytes Abs 2.0 0.9 - 3.2 x10(3)/mc L [facility] Monocyte % 12.0 % [facility] Monocyte Abs 1.7(H) 0.3 - 0.9 x10(3)/mc L [facility] Eos % 0.1 % [facility] Eosinophils Abs 0.0 0.0 - 0.4 x10(3)/mc L [facility] Basophil % 0.5 % [facility] Baso Absolute 0.1 0.0 - 0.1 x10(3)/mc L [facility] Immature Gran % 0.40 % [facility] Comment: Immature granulocytes(IG's)percentage and absolute count will include metamyelocytes, myelocytes, and promyelocytes. Blood smears from CBCs yielding IG's will be scanned manually for concordance. If this scan disagrees with the automated IG or if promyelocytes are noted, a manual differential will be performed. Immature Gran Absolute 0.06(H) 0.00 - 0.04 x10(3)/mc L [facility] Blood 06/02/2022 3:47 AM EDT 06/02/2022 4:32 AM EDT Narrative Resulting Agency Comment Spec In Lab Ramona Arvizu MD HEMATOLOGY ORDERABLE S [facility] [place] [address] * (ABNORMAL) Hemogram (06/02/2022 3:47 AM EDT) White Blood Cell 14.2(H) 4.0 - 9.5 x10(3)/mc L [facility] Red Blood Cell 4.08 4.00 - 5.21 x10(6)/mc L [facility] Hemoglobin 10.9(L) 11.7 - 15.5 g/dL [facility] Hematocrit 34.4(L) 35.7 - 45.8 % [facility] Mean Cell Volume 84.3 82.6 - 94.4 fL [facility] Mean Cell Hemoglobin 26.7(L) 27.1 - 32.0 pg [facility] Mean Cell Hemoglobin Concentration 31.7 31.7 - 35.0 g/dL [facility] Platelet 424(H) 145 - 357 x10(3)/mc L [facility] RDW Standard Deviation 46.5(H) 37.0 - 46.0 fL [facility] RDW coefficient of variation 15.1(H) 11.5 - 14.1 % [facility] Mean Platelet Volume 9.7 7.6 - 12.9 fL [facility] NRBC% auto 0.0 % [facility] NRBC Absolute 0.000 0.000 - 0.000 x10(3)/mc L [facility] Blood 06/02/2022 3:47 AM EDT 06/02/2022 4:32 AM EDT Narrative Resulting Agency Comment Spec In Lab Ramona Arvizu MD HEMATOLOGY ORDERABLE S [facility] [place] [address] * Phosphorus (06/02/2022 3:47 AM EDT) Phosphorus 3.1 2.5 - 4.5 mg/dL [facility] Blood 06/02/2022 3:47 AM EDT 06/02/2022 4:31 AM EDT Narrative Resulting Agency Comment Spec In Lab Whit Nance MD CHEMISTRY ORDERABLES [facility] [place] [address] * Magnesium (06/02/2022 3:47 AM EDT) Magnesium 0.76 0.69 - 1.07 mmol/L [facility] Blood 06/02/2022 3:47 AM EDT 06/02/2022 4:31 AM EDT Narrative Resulting Agency Comment Spec In Lab Whit Nance MD CHEMISTRY ORDERABLES [facility] [place] [address] * (ABNORMAL) Basic Metabolic Panel (non-fasting) (06/02/2022 3:47 AM EDT) Glucose 142 65 - 199 mg/dL [facility] Comment:Diabetes: >=200 mg/d L plus symptoms Blood Urea Nitrogen 15 8 - 18 mg/dL [facility] Creatinine 0.61(L) 0.70 - 1.20 mg/dL [facility] Sodium 135 135 - 145 mmol/L [facility] Potassium 4.1 3.5 - 5.0 mmol/L [facility] Comment: Please note: ??Patients with WBC >100,000 may have falsely elevated Potassium levels. ??For accurate Potassium quantification in these patients send serum separator tube (gold top) for subsequent determinations. ??Contact the Clinical Chemistry Laboratory if there are any questions. Chloride 101 98 - 107 mmol/L [facility] Carbon Dioxide 24 22 - 31 mmol/L [facility] Anion Gap 10 5 - 15 mmol/L [facility] Calcium 7.6(L) 8.5 - 10.5 mg/dL [facility] Est Glomerular Filtration Rate 103 >=60 mL/min/1. 73 m?? [facility] Comment: This patient's estimated GFR was [...] and symptoms in addition to eGFR. Blood 06/02/2022 3:47 AM EDT 06/02/2022 4:31 AM EDT Narrative Resulting Agency Comment Spec In Lab Whit Nance MD CHEMISTRY ORDERABLES [facility] [place] [address] * (ABNORMAL) Differential, Automated (06/01/2022 3:38 PM EDT) Neutrophil % 88.7 % [facility] Neutrophil Absolute 17.07(H) 1.70 - 6.10 x10(3)/mc L [facility] Lymph % 4.7 % [facility] Lymphocytes Abs 0.9 0.9 - 3.2 x10(3)/mc L [facility] Monocyte % 5.7 % [facility] Monocyte Abs 1.1(H) 0.3 - 0.9 x10(3)/mc L [facility] Eos % 0.1 % [facility] Eosinophils Abs 0.0 0.0 - 0.4 x10(3)/mc L [facility] Basophil % 0.3 % [facility] Baso Absolute 0.1 0.0 - 0.1 x10(3)/mc L [facility] Immature Gran % 0.50 % [facility] Comment: Immature granulocytes(IG's)percentage and absolute count will include metamyelocytes, myelocytes, and promyelocytes. Blood smears from CBCs yielding IG's will be scanned manually for concordance. If this scan disagrees with the automated IG or if promyelocytes are noted, a manual differential will be performed. Immature Gran Absolute 0.10(H) 0.00 - 0.04 x10(3)/mc L [facility] Blood 06/01/2022 3:38 PM EDT 06/01/2022 3:51 PM EDT Narrative Resulting Agency Comment Spec In Lab Ramona Arvizu MD [place] [address] * (ABNORMAL) Hemogram (06/01/2022 3:38 PM EDT) White Blood Cell 19.2(H) 4.0 - 9.5 x10(3)/mc L [facility] Red Blood Cell 4.95 4.00 - 5.21 x10(6)/mc L [facility] Hemoglobin 13.3 11.7 - 15.5 g/dL [facility] Hematocrit 41.9 35.7 - 45.8 % [facility] Mean Cell Volume 84.6 82.6 - 94.4 fL [facility] Mean Cell Hemoglobin 26.9(L) 27.1 - 32.0 pg [facility] Mean Cell Hemoglobin Concentration 31.7 31.7 - 35.0 g/dL [facility] Platelet 430(H) 145 - 357 x10(3)/mc L [facility] RDW Standard Deviation 46.7(H) 37.0 - 46.0 fL [facility] RDW coefficient of variation 15.1(H) 11.5 - 14.1 % [facility] Mean Platelet Volume 9.5 7.6 - 12.9 fL [facility] NRBC% auto 0.0 % [facility] NRBC Absolute 0.000 0.000 - 0.000 x10(3)/mc L [facility] Blood 06/01/2022 3:38 PM EDT 06/01/2022 3:51 PM EDT Narrative Resulting Agency Comment Spec In Lab Ramona Arvizu MD HEMATOLOGY ORDERABLE S [facility] [place] [address] * Phosphorus (06/01/2022 3:38 PM EDT) Phosphorus 3.4 2.5 - 4.5 mg/dL [facility] Blood 06/01/2022 3:38 PM EDT 06/01/2022 3:51 PM EDT Narrative Resulting Agency Comment Spec In Lab Whit Nance MD CHEMISTRY ORDERABLES [facility] [place] [address] * Magnesium (06/01/2022 3:38 PM EDT) Magnesium 0.86 0.69 - 1.07 mmol/L [facility] Blood 06/01/2022 3:38 PM EDT 06/01/2022 3:51 PM EDT Narrative Resulting Agency Comment Spec In Lab Whit Nance MD CHEMISTRY ORDERABLES [facility] [place] [address] * (ABNORMAL) Basic Metabolic Panel (non-fasting) (06/01/2022 3:38 PM EDT) Glucose 150 65 - 199 mg/dL [facility] Comment:Diabetes: >=200 mg/d L plus symptoms Blood Urea Nitrogen 16 8 - 18 mg/dL [facility] Creatinine 0.73 0.70 - 1.20 mg/dL [facility] Sodium 141 135 - 145 mmol/L [facility] Potassium 4.9 3.5 - 5.0 mmol/L [facility] Comment: Please note: ??Patients with WBC >100,000 may have falsely elevated Potassium levels. ??For accurate Potassium quantification in these patients send serum separator tube (gold top) for subsequent determinations. ??Contact the Clinical Chemistry Laboratory if there are any questions. Chloride 106 98 - 107 mmol/L [facility] Carbon Dioxide 23 22 - 31 mmol/L [facility] Anion Gap 12 5 - 15 mmol/L [facility] Calcium 8.0(L) 8.5 - 10.5 mg/dL [facility] Est Glomerular Filtration Rate 95 >=60 mL/min/1. 73 m?? [facility] Comment: This patient's estimated GFR was [...] and symptoms in addition to eGFR. Blood 06/01/2022 3:38 PM EDT 06/01/2022 3:51 PM EDT Narrative Resulting Agency Comment Spec In Lab Whit Nance MD CHEMISTRY ORDERABLES [facility] [place] [address] * (ABNORMAL) BLOOD GAS 2 VENOUS (06/01/2022 9:19 AM EDT) pH, Venous 7.38 7.32 - 7.42 [facility] PCO2, Venous 47 41 - 51 mmHg [facility] PO2, Venous 63(H) 25 - 40 mmHg [facility] Bicarbonate, Venous 27.5 mmol/L [facility] Base Excess, Venous 2.0 mmol/L [facility] Hgb Blood Gas 12.7 11.7 - 15.5 g/dL [facility] Oxyhemoglobin, Venous 90.8 % [facility] Carboxyhemoglob in, Venous 1.4 % [facility] Comment: Nonsmokers: 0.5-1.5% COHB Smokers: Variable, but usually less than 10% Toxic: 20-30% COHB Lethal: Greater than 60% COHB Methemoglobin, Venous 0.3 <=1.5 % [facility] Na Whole Blood 139 135 - 145 mmol/L [facility] K Whole Blood 3.9 3.5 - 5.0 mmol/L [facility] Comment: Please note: Patients with WBC >100,000 may have falsely elevated Potassium levels. Contact the Clinical Chemistry Laboratory if there are any questions. ICa Whole Blood 1.14(L) 1.15 - 1.33 mmol/L [facility] Comment: Note: ??Total bilirubin higher than 20 mg/dL may lead to falsely low ionized calcium. CL Whole Blood 105 98 - 107 mmol/L [facility] Gluc Whole Bld 120 65 - 199 mg/dL [facility] Comment:Diabetes: >=200 mg/d L plus symptoms Lactate WB 1.7 0.5 - 2.2 mmol/L [facility] Flow, Royal 0.4 LPM [facility] Blood Gas Source Venous [facility] Temperature, Venous 35.7 Celsius [facility] Blood 06/01/2022 9:19 AM EDT 06/01/2022 9:19 AM EDT Whit Nance MD POINT OF CARE TEST O RDERABLES [facility] [place] [address] * XR Fluoro No Rad <1Hr - OR Use (06/01/2022 7:56 AM EDT) Narrative Dicom, Auditing User - 06/01/2022 7:56 AM EDT This exam is auto-finalizing. No interpretation was done. Timothy Murphy MD IMG FLUORO ORDERAB LES * SCAN DOC: IMPLANTABLE DEVICES (06/01/2022 12:00 AM EDT) Narrative 06/01/2022 12:00 AM EDT Ordered by an unspecified provider. Scanning Provider MEDIA MGR SCAN EXT O RDR/RSLT documented in this encounter Visit Diagnoses Diagnosis Ventral hernia- Primary Ventral hernia, unspecified, without mention of obstruction or gangrene Incisional hernia, without obstruction or gangrene Incisional hernia without mention of obstruction or gangrene Chronic obstructive pulmonary disease, unspecified COPD type Incisional hernia, without obstruction or gangrene Incisional hernia without mention of obstruction or gangrene documented in this encounter Admitting Diagnoses Diagnosis Ventral hernia Ventral hernia, unspecified, without mention of obstruction or gangrene documented in this encounter Administered Medications Inactive Administered Medications - up to 3 most recent administrations Medication Order MAR Action Action Date Dose Rate Site acetaminophen (Tylenol) tablet 975 mg 975 mg, Oral, EVERY 6 HOURS SCHEDULED, First dose (after last modification) on Wed06/03/22 at 1515, Until Discontinued, Maximum dose of acetaminophen is 4,000 mg from all sources in 24 hours. When ordered for pain, acetaminophen should be given even when other ordered pain medications are indicated. , Routine Given 06/05/2022 9:51 AM EDT 975 mg Given 06/05/2022 4:36 AM EDT 975 mg Given 06/04/2022 9:38 PM EDT 975 mg albuteroL (Proventil, Ventolin) (2.5 mg/3 mL) (0.083 %) nebulizer solution 2.5 mg 2.5 mg, Nebulization, 4 TIMES DAILY, First dose (after last modification) on Wed06/03/22 at 1300, Until Discontinued, Routine Given 06/05/2022 8:08 AM EDT 2.5 mg Given 06/04/2022 9:38 PM EDT 2.5 mg Given 06/04/2022 5:31 PM EDT 2.5 mg apixaban (Eliquis) tablet 5 mg 5 mg, Oral, 2 TIMES DAILY, First dose on Wed06/04/22 at 1145, Until Discontinued, Anticoagulant, Routine, Restricted anticoagulant, choose the most appropriate response: Approved indication of non-valvular atrial fibrillation Given 06/05/2022 8:08 AM EDT 5 mg Given 06/04/2022 9:39 PM EDT 5 mg Given 06/04/2022 12:11 PM EDT 5 mg atorvastatin (Lipitor) tablet 80 mg 80 mg, Oral, EVERY EVENING, First dose on Wed06/02/22 at 1700, Until Discontinued, Routine Given 06/04/2022 5:32 PM EDT 80 mg Given 06/03/2022 4:35 PM EDT 80 mg Given 06/02/2022 4:07 PM EDT 80 mg benzonatate (Tessalon) capsule 100 mg 100 mg, Oral, 3 TIMES DAILY, First dose (after last reorder) on Wed06/02/22 at 0315, Until Discontinued, DO NOT CRUSH OR OPEN, Routine Given 06/05/2022 2:41 PM EDT 100 mg Given 06/05/2022 8:08 AM EDT 100 mg Given 06/04/2022 9:39 PM EDT 100 mg bisacodyL (Dulcolax) suppository 10 mg 10 mg, Rectal, DAILY, First dose on Wed06/04/22 at 0900, Until Discontinued, Routine Given 06/04/2022 9:00 AM EDT 10 mg budesonide-formoteroL (Symbicort) 80-4.5 mcg/actuation inhaler 2 Inhalation 2 .Inhalation , Inhalation, EVERY 12 HOURS SCHEDULED (2 times per day), First dose on Wed06/02/22 at 0945, Until Discontinued, Routine Given 06/05/2022 8:08 AM EDT 2 .Inhalation Given 06/04/2022 9:40 PM EDT 2 .Inhalation Given 06/04/2022 9:36 AM EDT 2 .Inhalation calcium carbonate (TUMS) chewable tablet 1,000 mg 1,000 mg, Oral, 2 TIMES DAILY, First dose on Wed06/04/22 at 0900, Until Discontinued, For low calcium, not reflux/heartburn, Routine Given 06/05/2022 8:08 AM EDT 1,000 mg Given 06/04/2022 9:39 PM EDT 1,000 mg Given 06/04/2022 9:31 AM EDT 1,000 mg clopidogreL (Plavix) tablet 75 mg 75 mg, Oral, DAILY, First dose on Wed06/05/22 at 0900, Until Discontinued, Routine Given 06/05/2022 8:08 AM EDT 75 mg docusate sodium (Colace) capsule 100 mg 100 mg, Oral, 2 TIMES DAILY, First dose on Wed06/01/22 at 2100, Until Discontinued, Routine Given 06/05/2022 8:09 AM EDT 100 mg Given 06/04/2022 9:38 PM EDT 100 mg Given 06/04/2022 9:33 AM EDT 100 mg furosemide (Lasix) tablet 20 mg 20 mg, Oral, DAILY, First dose on Wed06/02/22 at 0900, Until Discontinued, Hold if SBP<100, Routine Given 06/05/2022 8:09 AM EDT 20 mg Given 06/04/2022 9:30 AM EDT 20 mg Given 06/03/2022 8:23 AM EDT 20 mg gabapentin (Neurontin) capsule 300 mg 300 mg, Oral, 2 TIMES DAILY, First dose (after last modification) on Wed06/01/22 at 2215, Until Discontinued, Routine Given 06/05/2022 8:09 AM EDT 300 mg Given 06/04/2022 9:38 PM EDT 300 mg Given 06/04/2022 9:32 AM EDT 300 mg hydrOXYzine (Atarax) tablet 10 mg 10 mg, Oral, 4 TIMES DAILY PRN, Starting on Wed06/02/22 at 1147, Until Wed06/05/22 at 1748, Itching, Routine Given 06/04/2022 3:38 AM EDT 10 mg Given 06/02/2022 5:47 PM EDT 10 mg Given 06/02/2022 12:08 PM EDT 10 mg ipratropium-albuteroL (Duoneb) 0.5 mg-3 mg(2.5 mg base)/3 mL nebulizer solution 3 mL 3 mL, Nebulization, EVERY 4 HOURS PRN, Starting on Wed06/01/22 at 1739, Until Wed06/05/22 at 1748, Wheezing, Routine Given 06/04/2022 6:02 AM EDT 3 mLs levothyroxine (Synthroid) tablet 50 mcg 50 mcg, Oral, EVERY MORNING, First dose on Wed06/02/22 at 0700, Until Discontinued, Routine Given 06/05/2022 6:17 AM EDT 50 mcg Given 06/04/2022 6:23 AM EDT 50 mcg Given 06/03/2022 6:28 AM EDT 50 mcg lidocaine (Lidoderm) 5% patch 1 patch 1 patch, Transdermal, Administer over 12 Hours, EVERY 24 HOURS, First dose on Wed06/03/22 at 0830, Until Discontinued, Apply patch(es) for 12 hours, and then remove for 12 hours., Routine Patch Applied 06/04/2022 11:00 AM EDT 1 patch 13- Abdomen (Left) melatonin tablet 9 mg 9 mg, Oral, NIGHTLY, First dose on Wed06/01/22 at 2100, Until Discontinued, Routine Given 06/04/2022 9:39 PM EDT 9 mg Given 06/03/2022 8:31 PM EDT 9 mg Given 06/02/2022 9:10 PM EDT 9 mg methocarbamoL (Robaxin) tablet 750 mg 750 mg, Oral, 3 TIMES DAILY, First dose on Wed06/03/22 at 0900, Until Discontinued, Routine Given 06/05/2022 2:41 PM EDT 750 mg Given 06/05/2022 8:09 AM EDT 750 mg Given 06/04/2022 9:39 PM EDT 750 mg oxyCODONE (Roxicodone) tablet 5-10 mg 5-10 mg, Oral, EVERY 4 HOURS PRN, Starting on Wed06/03/22 at 1353, Until Wed06/05/22 at 1748, Pain, For pain not well controlled by Tylenol and Toradol first. Start with 5 mg, if pain not well controlled in 1 hour may give one time additional 5 mg dose, Routine Given 06/05/2022 8:16 AM EDT 5 mg Given 06/04/2022 1:18 AM EDT 10 mg Given 06/03/2022 8:30 PM EDT 5 mg pantoprazole EC (Protonix) tablet 40 mg 40 mg, Oral, DAILY, First dose on Wed06/02/22 at 0900, Until Discontinued, DO NOT CRUSH OR OPEN, Routine Given 06/05/2022 8:08 AM EDT 40 mg Given 06/04/2022 9:32 AM EDT 40 mg Given 06/03/2022 8:23 AM EDT 40 mg polyethylene glycoL (Miralax) packet 17 g 17 g, Oral, DAILY, First dose on Wed06/03/22 at 1515, Until Discontinued, Routine Given 06/04/2022 9:33 AM EDT 17 g Given 06/03/2022 3:56 PM EDT 17 g sodium chloride 0.9 % (flush) (BD PosiFlush Normal Saline 0.9) flush 5 mL 5 mL, Intravenous, 2 TIMES DAILY, First dose on Wed06/01/22 at 2100, Until Discontinued, Recovery (Recovery-Hospital Unit), Routine Given 06/05/2022 8:17 AM EDT 5 mLs Given 06/04/2022 9:39 PM EDT 5 mLs Given 06/04/2022 9:37 AM EDT 5 mLs tiotropium bromide (Spiriva Respimat) 2.5 mcg/actuation inhaler 2 puff 2 puff, Inhalation, DAILY, First dose on Wed06/02/22 at 0945, Until Discontinued, Must be primed prior to first administration, Routine Given 06/05/2022 8:08 AM EDT 2 puffs Given 06/04/2022 9:36 AM EDT 2 puffs Given 06/03/2022 8:16 AM EDT 2 puffs traZODone (Desyrel) tablet 25 mg 25 mg, Oral, NIGHTLY, First dose on Wed06/01/22 at 2100, Until Discontinued, Routine Given 06/04/2022 9:39 PM EDT 25 mg Given 06/03/2022 8:31 PM EDT 25 mg Given 06/02/2022 9:10 PM EDT 25 mg documented in this encounter Active and Recently Administered Medications Times are shown in EDT. Scheduled Medication Order 06/03/2022 06/04/2022 06/05/2022 acetaminophen (Tylenol) tablet 975 mg (CANCELED) 975 mg, Oral, EVERY 8 HOURS, First dose on Wed06/02/22 at 0000, Until Discontinued, Maximum dose of acetaminophen is 4,000 mg from all sources in 24 hours. When ordered for pain, acetaminophen should be given even when other ordered pain medications are indicated. , Routine 0823 (Given - Provider: Raghavendra Jackson LPN) acetaminophen (Tylenol) tablet 975 mg 975 mg, Oral, EVERY 6 HOURS SCHEDULED, First dose (after last modification) on Wed06/03/22 at 1515, Until Discontinued, Maximum dose of acetaminophen is 4,000 mg from all sources in 24 hours. When ordered for pain, acetaminophen should be given even when other ordered pain medications are indicated. , Routine 1550 (Given - Provider: Raghavendra Jackson LPN)2031 (Given - Provider: Tess Lozano RN) 0338 (Given - Provider: Tess Lozano RN)0932 (Given - Provider: Linda Jacob LPN)1552 (Given - Provider: Linda Jacob LPN)2138 (Given - Provider: Tess Lozano RN) 0436 (Given - Provider: Tess Lozano RN)0951 (Given - Provider: Patricia Mtz LPN) albuteroL (Proventil, Ventolin) (2.5 mg/3 mL) (0.083 %) nebulizer solution 2.5 mg 2.5 mg, Nebulization, 4 TIMES DAILY, First dose (after last modification) on Wed06/03/22 at 1300, Until Discontinued, Routine 1238 (Given - Provider: Raghavendra Jackson LPN)1635 (Given - Provider: Raghavendra Jackson LPN)2031 (Given - Provider: Tess Lozano RN) 0933 (Given - Provider: Linda Jacob LPN)1353 (Given - Provider: Linda Jacob LPN)1731 (Given - Provider: Linda Jacob LPN)2138 (Given - Provider: Tess Lozano RN) 0808 (Given - Provider: Patricia Mtz LPN)1300 (Not Given - Provider: Mauro Fernandez RN - Reason: Patient/family refused) apixaban (Eliquis) tablet 5 mg (CANCELED) 5 mg, Oral, 2 TIMES DAILY, First dose on Wed06/03/22 at 2100, Until Discontinued, Anticoagulant, Routine, Restricted anticoagulant, choose the most appropriate response: Approved indication of non-valvular atrial fibrillation 2030 (Given - Provider: Tess Lozano RN) apixaban (Eliquis) tablet 5 mg 5 mg, Oral, 2 TIMES DAILY, First dose on Wed06/04/22 at 1145, Until Discontinued, Anticoagulant, Routine, Restricted anticoagulant, choose the most appropriate response: Approved indication of non-valvular atrial fibrillation 1211 (Given - Provider: Linda Jacob LPN)213 (Given - Provider: Tess Lozano RN) 0808 (Given - Provider: Patricia Mtz LPN) aspirin chewable tablet 81 mg (CANCELED) 81 mg, Oral, DAILY, First dose on Wed06/02/22 at 0900, Until Discontinued, Routine 1408 (Given - Provider: Raghavendra Jackson LPN - Comment: pt has epidural just removed) 0930 (Given - Provider: Linda Jacob LPN) atorvastatin (Lipitor) tablet 80 mg 80 mg, Oral, EVERY EVENING, First dose on Wed06/02/22 at 1700, Until Discontinued, Routine 1635 (Given - Provider: Raghavendra Jackson LPN) 1732 (Given - Provider: Linda Jacob LPN) benzonatate (Tessalon) capsule 100 mg 100 mg, Oral, 3 TIMES DAILY, First dose (after last reorder) on Wed06/02/22 at 0315, Until Discontinued, DO NOT CRUSH OR OPEN, Routine 0820 (Given - Provider: Raghavendra Jackson LPN)1407 (Given - Provider: Raghavendra Jackson LPN)203 (Given - Provider: Tess Lozano RN) 0930 (Given - Provider: Linda Jacob LPN)1552 (Given - Provider: Linda Jacob LPN)213 (Given - Provider: Tess Lozano RN) 0808 (Given - Provider: Patricia Mtz LPN)1441 (Given - Provider: Mauro Fernandez RN) bisacodyL (Dulcolax) suppository 10 mg 10 mg, Rectal, DAILY, First dose on Wed06/04/22 at 0900, Until Discontinued, Routine 0900 (Given - Provider: Linda Jacob LPN - Comment: would not scan barcode) 0900 (Not Given - Provider: Patricia Mtz LPN - Reason: Patient/family refused) budesonide-formoteroL (Symbicort) 80-4.5 mcg/actuation inhaler 2 Inhalation 2 .Inhalation , Inhalation, EVERY 12 HOURS SCHEDULED (2 times per day), First dose on Wed06/02/22 at 0945, Until Discontinued, Routine 0818 (Given - Provider: Raghavendra Jackson LPN)2031 (Given - Provider: Tess Lozano RN) 0936 (Given - Provider: Linda Jacob LPN)2140 (Given - Provider: Tess Lozano RN) 0808 (Given - Provider: Patricia Mtz LPN) calcium carbonate (TUMS) chewable tablet 1,000 mg 1,000 mg, Oral, 2 TIMES DAILY, First dose on Wed06/04/22 at 0900, Until Discontinued, For low calcium, not reflux/heartburn, Routine 0931 (Given - Provider: Linda Jacob LPN)2139 (Given - Provider: Tess Lozano RN) 0808 (Given - Provider: Patricia Mtz LPN) clopidogreL (Plavix) tablet 75 mg 75 mg, Oral, DAILY, First dose on Wed06/05/22 at 0900, Until Discontinued, Routine 0808 (Given - Provider: Patricia Mtz LPN) docusate sodium (Colace) capsule 100 mg 100 mg, Oral, 2 TIMES DAILY, First dose on Wed06/01/22 at 2100, Until Discontinued, Routine 0822 (Given - Provider: Raghavendra Jackson LPN)203 (Given - Provider: Tess Lozano RN) 0933 (Given - Provider: Linda Jacob LPN)213 (Given - Provider: Tess Lozano RN) 08 (Given - Provider: Patricia Mtz LPN) fexofenadine (Tricia) tablet 60 mg (CANCELED) 60 mg, Oral, 2 TIMES DAILY, First dose on Wed06/02/22 at 0900, Until Discontinued 0823 (Given - Provider: Raghavendra Jackson LPN) furosemide (Lasix) tablet 20 mg 20 mg, Oral, DAILY, First dose on Wed06/02/22 at 0900, Until Discontinued, Hold if SBP<100, Routine 0823 (Given - Provider: Raghavendra Jackson LPN) 0930 (Given - Provider: iLnda Jacob LPN) 08 (Given - Provider: Patricia Mtz LPN) gabapentin (Neurontin) capsule 300 mg 300 mg, Oral, 2 TIMES DAILY, First dose (after last modification) on Wed06/01/22 at 2215, Until Discontinued, Routine 0823 (Given - Provider: Raghavendra Jackson LPN)2030 (Given - Provider: Tess Lozano RN) 0932 (Given - Provider: Linda Jacob LPN)213 (Given - Provider: Tess Lozano RN) 0809 (Given - Provider: Patricia Mtz LPN) ketorolac (Toradol) (30 mg/mL) injection 15 mg (CANCELED) 15 mg, Intravenous, EVERY 8 HOURS, First dose on Wed06/03/22 at 1645, Until Discontinued, Routine 1635 (Given - Provider: Raghavendra Jackson LPN) 0045 (Not Given - Provider: Tess Lozano RN - Reason: Patient/family refused) lactated Ringers 500 mL IV bolus (COMPLETED) at 250 mL/hr, Intravenous, ONCE, 1 dose, On Suzi 06/04/22 at 0315 0338 (New Bag - Provider: Tess Lozano RN)0538 (Stopped - Provider: Tess Lozano RN) levothyroxine (Synthroid) tablet 50 mcg 50 mcg, Oral, EVERY MORNING, First dose on Wed06/02/22 at 0700, Until Discontinued, Routine 0628 (Given - Provider: Chanda Montes De Oca RN) 0623 (Given - Provider: Tess Lozano RN) 0617 (Given - Provider: Tess Lozano RN) lidocaine (Lidoderm) 5% patch 1 patch 1 patch, Transdermal, Administer over 12 Hours, EVERY 24 HOURS, First dose on Wed06/03/22 at 0830, Until Discontinued, Apply patch(es) for 12 hours, and then remove for 12 hours., Routine 0830 (Not Given - Provider: Raghavendra Jackson LPN - Reason: Patient/family refused) 1100 (Patch Applied - Provider: Linda Jacob LPN)2300 (Patch Removed - Provider: Tess Lozano RN) 0811 (Not Given - Provider: Patricia Mtz LPN - Reason: Patient/family refused) magnesium sulfate 2 g in sterile water 50 mL infusion (COMPLETED) 2 g, Intravenous, ONCE, 1 dose, On Wed06/03/22 at 0715, Administer over 120 Minutes 0643 (New Bag - Provider: Chanda Montes De Oca RN)0843 (Stopped - Provider: Raghavendra Jackson LPN) melatonin tablet 9 mg 9 mg, Oral, NIGHTLY, First dose on Wed06/01/22 at 2100, Until Discontinued, Routine 2030 (Given - Provider: Tess Lozano RN) 213 (Given - Provider: Tess Lozano RN) methocarbamoL (Robaxin) tablet 750 mg 750 mg, Oral, 3 TIMES DAILY, First dose on Wed06/03/22 at 0900, Until Discontinued, Routine 0822 (Given - Provider: Rgahavendra Jackson LPN)1406 (Given - Provider: Raghavendra Jackson LPN)2031 (Given - Provider: Tess Lozano RN) 0932 (Given - Provider: Linda Jacob LPN)1552 (Given - Provider: Linda Jacob LPN)2139 (Given - Provider: Tess Lozano RN) 0809 (Given - Provider: Patricia Mtz LPN)1441 (Given - Provider: Mauro Fernandez RN) oxyCODONE (Roxicodone) tablet 5 mg (COMPLETED) 5 mg, Oral, ONCE, 1 dose, On Wed06/03/22 at 0830, Routine 0903 (Given - Provider: Raghavendra Jackson LPN) pantoprazole EC (Protonix) tablet 40 mg 40 mg, Oral, DAILY, First dose on Wed06/02/22 at 0900, Until Discontinued, DO NOT CRUSH OR OPEN, Routine 0823 (Given - Provider: Raghavendra Jackson LPN) 0932 (Given - Provider: Linda Jacob LPN) 0808 (Given - Provider: Patricia Mtz LPN) polyethylene glycoL (Miralax) packet 17 g 17 g, Oral, DAILY, First dose on Wed06/03/22 at 1515, Until Discontinued, Routine 1556 (Given - Provider: Raghavendra Jackson LPN) 0933 (Given - Provider: Linda Jacob LPN) 0900 (Not Given - Provider: Patricia Mtz LPN - Reason: Patient/family refused) potassium phosphate 15 mMol in sodium chloride 0.9% 250 mL infusion (COMPLETED) 15 mmol, Intravenous, EVERY 4 HOURS, 2 doses, First dose on Wed06/03/22 at 0715, Last dose on Wed06/03/22 at 1115, Administer over 4 Hours, Administer over 4-6 hours 0657 (New Bag - Provider: Chanda Montes De Oca RN)1057 (Stopped - Provider: Nadia Ortez RN)1128 (New Bag - Provider: Nadia Ortez RN)1528 (Stopped - Provider: Raghavendra Jackson LPN) sodium chloride 0.9 % (flush) (BD PosiFlush Normal Saline 0.9) flush 5 mL 5 mL, Intravenous, 2 TIMES DAILY, First dose on Wed06/01/22 at 2100, Until Discontinued, Recovery (Recovery-[facility]ospital Unit), Routine 0900 (Not Given - Provider: Raghavendra Jackson LPN - Reason: Contraindicated - Comment: currently infusing)2031 (Given - Provider: Tess Lozano RN) 0937 (Given - Provider: Linda Jacob LPN)2138 (Given - Provider: Tess Lozano RN) 0817 (Given - Provider: Patricia Mtz LPN) tiotropium bromide (Spiriva Respimat) 2.5 mcg/actuation inhaler 2 puff 2 puff, Inhalation, DAILY, First dose on Wed06/02/22 at 0945, Until Discontinued, Must be primed prior to first administration, Routine 0816 (Given - Provider: Raghavendra Jackson LPN) 0936 (Given - Provider: Linda Jacob LPN) 0808 (Given - Provider: Patricia Mtz LPN) traZODone (Desyrel) tablet 25 mg 25 mg, Oral, NIGHTLY, First dose on Wed06/01/22 at 2100, Until Discontinued, Routine 2030 (Given - Provider: Tess Lozano RN) 2138 (Given - Provider: Tess Lozano RN) Continuous Medication Order 06/03/2022 06/04/2022 06/05/2022 BUpivacaine (pf) 0.1 % in sodium chloride 0.9% 250 mL epidural (mixture) (CANCELED) Epidural, Epidural Type: Continuous + PCEA, Continuous Rate: 3 mL/hr, PCEA Dose: 3 mL, PCEA Frequency: Every 20 minutes, Maximum rate for continuous infusion is 16 mL per hour Maximum intermittent bolus is 15 mL Maximum total dose is 30 mL per hour Continuous = basal rate for epidural infusion PCEA (Patient Controlled Epidural Analgesia) = bolus from infusion delivered after patient presses demand button PIEB (Programmed Intermittent Epidural Bolus) = bolus from infusion delivered on a programmed frequency , Recovery (Recovery[facility]ospital Unit) 0831 (Rate/Dose Change - Provider: Raghavendra Jackson LPN - Comment: done with Nadia Ortez RN)1051 (New Bag - Provider: Rebecca Wahl RN) BUpivacaine (pf) 0.1 % in sodium chloride 0.9% 250 mL epidural (mixture) (CANCELED)(Linked Group 1) Epidural, Epidural Type: PCEA Only, PCEA Dose: 3 mL, PCEA Frequency: Every 20 minutes, Maximum rate for continuous infusion is 16 mL per hour Maximum intermittent bolus is 15 mL Maximum total dose is 30 mL per hour Continuous = basal rate for epidural infusion PCEA (Patient Controlled Epidural Analgesia) = bolus from infusion delivered after patient presses demand button PIEB (Programmed Intermittent Epidural Bolus) = bolus from infusion delivered on a programmed frequency , Recovery (Recovery[facility]ospital Unit) 1234 (Rate/Dose Change - Provider: Nadia Ortez RN)1326 (Stopped - Provider: Melida Lozoya RN) PRN Medication Order 06/03/2022 06/04/2022 06/05/2022 hydrOXYzine (Atarax) tablet 10 mg 10 mg, Oral, 4 TIMES DAILY PRN, Starting on Wed06/02/22 at 1147, Until Wed06/05/22 at 1748, Itching, Routine 0338 (Given - Provider: Tess Lozano, FRANKIE) ipratropium-albuteroL (Duoneb) 0.5 mg-3 mg(2.5 mg base)/3 mL nebulizer solution 3 mL 3 mL, Nebulization, EVERY 4 HOURS PRN, Starting on Wed06/01/22 at 1739, Until Wed06/05/22 at 1748, Wheezing, Routine 0602 (Given - Provider: Elian Acevedo LPN) lidocaine (Xylocaine) 1% (10 mg/mL) injection 3 mg 3 mg (0.3 mL), Subcutaneous, ONCE PRN, 1 dose, Starting on Wed06/01/22 at 1739, Until Wed06/05/22 at 1748, for discomfort with PIV insertion, Recovery (Recovery[facility]ospital Unit), Routine naloxone (Narcan) (0.4 mg/mL) injection 0.2 mg 0.2 mg, Intravenous, EVERY 1 MIN PRN, Starting on Wed06/01/22 at 1739, Until Wed06/05/22 at 1748, Opioid Reversal, If respiratory rate less than 6 OR the patient is unable to arouse OR SpO2 is declining, Give for respiratory rate of less than or equal to 6 and patient is heavily sedated or unarousable. May repeat every 60 seconds to increase respiratory rate. DO NOT exceed 2 mg total dose., Recovery (Recovery[facility]ospital Unit), Routine oxyCODONE (Roxicodone) tablet 5-10 mg 5-10 mg, Oral, EVERY 4 HOURS PRN, Starting on Wed06/03/22 at 1353, Until Wed06/05/22 at 1748, Pain, For pain not well controlled by Tylenol and Toradol first. Start with 5 mg, if pain not well controlled in 1 hour may give one time additional 5 mg dose, Routine 1550 (Given - Provider: Raghavendra Jackson LPN)2030 (Given - Provider: Tess Lozano RN) 0118 (Given - Provider: Elian Acevedo LPN) 0816 (Given - Provider: Patricia Mtz LPN) sodium chloride 0.9 % (flush) (BD PosiFlush Normal Saline 0.9) flush 5-20 mL 5-20 mL, Intravenous, EVERY 1 MIN PRN, Starting on Wed06/01/22 at 1739, Until Wed06/05/22 at 1748, flush, Flush pertains to all indwelling lines. Flush per protocol found in the job aid using the link provided on this medication record., Recovery (Recovery[facility]ospital Unit), Routine Linked Groups Order Group 1: BUpivacaine (pf) 0.1 % in sodium chloride 0.9% 250 mL epidural (mixture) (CANCELED)Jump to med Epidural, Epidural Type: PCEA Only, PCEA Dose: 3 mL, PCEA Frequency: Every 20 minutes, Maximum rate for continuous infusion is 16 mL per hour Maximum intermittent bolus is 15 mL Maximum total dose is 30 mL per hour Continuous = basal rate for epidural infusion PCEA (Patient Controlled Epidural Analgesia) = bolus from infusion delivered after patient presses demand button PIEB (Programmed Intermittent Epidural Bolus) = bolus from infusion delivered on a programmed frequency , Recovery ([facility]ospital Unit) And Neuraxial/Epidural shift total and settings verification (CANCELED) Epidural, 2 Times Daily- Neuraxial Shift Total, First dose (after last modification) on Wed06/03/22 at 1800, Until Discontinued, Recovery ([facility]) And Neuraxial (Epidural) pham (CANCELED) Epidural, CONTINUOUS PRN, Starting on Wed06/03/22 at 1113, Until Wed06/03/22 at 1326, Recovery (Recovery[facility]ospital Unit) documented in this encounter Care Teams Chief Compliance Officer Relationship Specialty Start Date End Date Nya Hernandez, IT CONSULTANT [address] [place] [id number] PCP - General Family Medicine 05/07/21 documented as of this encounter
--- OUTSIDE RECORDS SUMMARY | 2023-12-28 16:19 | XMS_ITS | Encounter Summary ---
[place] [address] Care Team Providers Care Telecommunications Technician Name Role Phone Nya Hernandez SERGIO Primary Care Provider +1- [phone] Encounter Details Date Type Department Care Team (Late st Contact Info) Description 06/06/2022 Patient Outreach [place] [address] Chayo Gaxiola RN Social History Tobacco Use Types Packs/Day Years [...] encounter Miscellaneous Notes * Telephone Encounter - Chayo Gaxiola RN - 06/06/2022 9:15 AM EDT Office of Care Management CDU/SDP/Emergency Department Recreational Therapy Aide FRANKIE Gaxiola BSN, ACM-RN Pager # [phone] AMA d/c 06/05, awaiting Home O2 transport tank delivery. Per MD note: Hx: COPD, PAD s/p right AKA, hypertension, CAD s/p PCI (05/2021), a fib, perforated duodenal ulcerin 2020 s/p multiple ex-laps and Shari-en-Y duodenojejunostomy, hernia repair... ?? TC From Carly of [facility]. They are unable to reach Eliza at all numbers listed on her Demographic sheets. VMM left on the lines that they can leave a message on. RN CC called and spoke with Eliza, and rashel Walker directed to call the otr flatbed driver who is available to deliver Eliza's home O2: [employer]zo Gonsalves [employer] on duty Wednesday. [phone] Denise, d-in-law reports that her Eliza feels well, and just woke up moved from bed to w/c. Oxygen level 93% at rest unlcear what the device was used to test pox. No mobility saturation obtained RN CM spoke with Eliza. She will be home today for the delivery, anticipates that she'll need it to use the w/c. She can self propel for 50 ', will need O2. [facility] (Resp Supplies) Central Intake: [place]: [place]: -They cover all Desha RN JUSTINO updated Carly [phone] who will also update Enzo. documented in this encounter Plan of Treatment Not on file documented as of this encounter Visit Diagnoses Not on filedocumented in this encounter Care Teams Telecommunications Technician Relationship Specialty Start Date End Date Nya Hernandez, SERGIO [address] [place] [id number] PCP - General Family Medicine 05/07/21 documented as of this encounter
--- OUTSIDE RECORDS SUMMARY | 2023-12-28 16:19 | XMS_ITS | Encounter Summary ---
Author Organization [facility] [place] [id number] Care Team Providers Care Trimming Machine Operator Name Role Phone Nya Hernandez APRN Primary Care Provider +1- [phone] Encounter Details Date Type Department Care Team (Late st Contact Info) Description 05/04/2022 Ancillary Procedure Radiology Library at [facility] [place] [id number] Nya Hernandez APRN [address] [place] [address] Social History Tobacco Use Types Packs/Day Years [...] Name Priority Date/Time Associated Diagnosis Comments FILM LIBRARY- STORAGE ONLY CT FACE Routine 05/04/2022 12:00 AM EST documented in this encounter Results * Film Library-Storage Only CT Face (05/04/2022 12:00 AM EST) Narrative [facility] - 05/21/2022 3:36 PM EDT This exam is auto-finalizing. It's purpose is for storage only. Nya Hernandez APRN IMG FILM LIBRARY O RDERABLES [place], [place] documented in this encounter Visit Diagnoses Not on filedocumented in this encounter Care Teams Trimming Machine Operator Relationship Specialty Start Date End Date Nya Hernandez APRN [address] [place] [id number] PCP - General Family Medicine 05/07/21 documented as of this encounter
--- OUTSIDE RECORDS SUMMARY | 2023-12-28 16:19 | XMS_ITS | Encounter Summary ---
[facility] Organization [facility] [place] [address] Care Team Providers Care Hospital Security Officer Name Role Phone Nya Hernandez SERGIO Primary Care Provider [phone] Reason for Visit * Auth/Cert (Routine) Specialty Diagnoses / Procedures Referred By Tomas early Referred To Contact Diagnoses Incisional hernia Procedures PRO REPAIR AA HERNIA INITIAL > 10 CM INCARCERATED/STRANGULATED @REPAIR ANT. ABDOMINAL HERNIA(S) (IE, EPIGASTRIC, INCISIONAL, VENTRAL, UMBILICAL, SPIGELIAN), INITIAL, W-WO MESH; GREATER THAN 10 CM, INCARCERATED OR STRANGULATED MODIFIER MESH,BARD VENTRALIGHT Whit Calvillo MD [facility] [place] [address] [facility] Referral ID Status Reason Start Date Expiration Date Visits Re quested Visits Authorized [id number] 1 1 Encounter Details Date Type Department Care Team (Late st Contact Info) Description 06/01/2022 7:56 AM EDT Anesthesia [place] [id number] Douglas Sinha MD [facility] [place] [address] Anesthesia Record Procedure Summary Procedure Name Responsible Anesthesiologist Anesthesia Start Time Anesthesia Stop Time REPAIR ANT. ABDOMINAL HERNIA(S) (IE, EPIGASTRIC, INCISIONAL, VENTRAL, UMBILICAL, SPIGELIAN), INITIAL, W-WO MESH; GREATER THAN 10 CM, REDUCIBLE (WRVU 13.94) (Abdomen) Douglas Sinha MD 06/01/22 0756 06/01/22 1449 Events Date Time Event Comment 06/01/2022 0705 0755 AN Verify 0756 Start 0756 An Start Data 0806 An Induction 0810 An Intubation 0848 Anesthesia Ready Unable to c annulate radial arteries. Ultrasound used, b/l radial arteries small, needle entered both radials, but sluggish flow back, unable to thread wire. Given risks/benefits, decided to draw labs from 18G in L hand, discussed with surgeon 0911 Break/Relief In I assumed ca re for Break Relief before which we: 1. Identified the patient 2. Identified the responsible provider(s) 3. Reviewed the pertinent medical history 4. Discussed the surgical plan and course 5. Reviewed intra-op anesthesia management and issues during anesthesia 6. Set expectations for the relief (and/or post-procedure) period 7. Allowed opportunity for questions and acknowledgement of understanding Eliza Rubio CRNA 0917 ABG Data Venous Blood Ga s result: pH pCO2 pO2 %O2 Sat FiO2 0.41 HCO3 BE Hb K Glucose Lactate 0930 Break/Relief Out 0930 ABG Data VENOUS Blood Ga s result: pH 7.357 pCO2 50.2 pO2 68.7 %O2 Sat 95 FiO2 0.5 HCO3 27.5 BE 2.o Hb 12.7 K 3.93 Glucose 120 Lactate 1.7 0956 Quick Note Recruitment anika aths given, placed in slight R-Tburg 1240 An Data Art High impedance noted on Sed line 1258 an riana now Sed line discon tinued due to erroneous data 1435 Extubation/LMA Out Recruitme nt breaths given, HOB elevated, oropharynx suctioned, taking in adequate spontaneous volumes 1438 an stop data 1448 Recovery or ICU Handoff Jaylin ent care was transferred to the destination unit staff after review of the patient's medical history, current anesthetic/surgical status and plan, according to the Provider Handoff Checklist. 1449 Stop Meds Name Total IV Lidocaine 40 mg Propofol 150 mg Rocuronium 120 mg PHENYLephrine 80 mcg Ondansetron 8 mg Dexamethasone 4 mg Propofol INF 1,186.36 mg PHENYLephrine INF 5,260 mcg BUpivacaine 0.1% with HYDROmorphone 10 m cg/mL 35.5 mL ceFAZolin 4 g Sugammadex 360 mg Lactated Ringers 1,250 mL Normosol-R 800 mL Albumin (human) 5% 250 mL * Agents Name O2 * Blood No blood administrations on file. Lines, Drains, and Airways Type Details Placement Removal (RETIRED) Peripheral IV Line - Single Lumen 06/01/22; 0720; cephalic vein (lateral side of arm), left; fagx-gae-brozbw catheter system; 20 gauge; Rose Manzanares SECURITY INFRASTRUCTURE ENGINEER; removed inadvertently; 06/04/22; 1200 06/01/22 0720 by Pa Manzanares, SECURITY INFRASTRUCTURE ENGINEER 06/04/22 1200 by Nadia Ortez RN Epidural 06/01/22; 0741; thoracic; T7-8, JG at 8.5cm, 15+cm at skin; Dr. Murphy / Dr. Pickens; analgesia, continuous infusion; catheter intact, removed with ease; Catheter intact, No complications; 06/03/22; 1328 06/01/22 0741 by Keon Russell RN 06/03/22 1328 by Melida Lozoya RN ETT Mask Ventilation: Adjunct (2); ETT Type: Cuffed, Oral; ETT Size: 7.5 mm; Mac Blade: 3; Notes: Asleep; Attempts: 1; Laryngoscopy Grade: 1; ETT Placement Verified By: Auscultation, Capnometry; Secured at Teeth: 22 cm; Inserted by: Rose Manzanares; Airway Inserted Prior to OR: Select if Yes and DO NOT re-document Airway.; Removal Date: 06/01/22; Removal Time: 14306/01/22 0810 by Pa Manzanares, SECURITY INFRASTRUCTURE ENGINEER 06/01/22 143 by Douglas Sinha MD (RETIRED) Peripheral IV Line - Single Lumen 06/01/22; 0811; dorsal arch vein (top of hand), left; prdw-ccj-[id number] catheter system; Anatomical Landmarks; 18 gauge; Rose Manzanares SECURITY INFRASTRUCTURE ENGINEER; removed inadvertently; 06/04/22; 1808 06/01/22 0811 by Pa Manzanares, SECURITY INFRASTRUCTURE ENGINEER 06/04/22 1808 by Nadia Ortez RN NG/OG Tube 06/01/22; 0811; orogastric; 18 Fr; 06/01/22; 1413 06/01/22 0811 by Pa Manzanares, SECURITY INFRASTRUCTURE ENGINEER 06/01/22 1413 by Pa Manzanares, SECURITY INFRASTRUCTURE ENGINEER Urethral Catheter 06/01/22; 0843; Physician order, Surgery longer than 2 hours; indwelling catheter with core temperature probe; latex; 14; inserted at this facility; 1; 5; 10; drainage bag to dependent drainage; 06/03/22; 1419 06/01/22 0843 by Rasheeda Schwarz RN 06/03/22 1419 by Raghavendra Mosquera RN Incision 06/01/22; 0909; anterior; abdomen; 07/25/22; 199906/01/22 0909 by Rasheeda Schwarz RN 07/25/221999 by Leyla Soto RN Drain/Device Site 06/01/22; 1324; Left ; lower; abdomen; collapsible closed device; Dr. Nance; Sterile technique; 06/05/22; 1130 06/01/22 1324 by Rasheeda Schwarz RN 06/05/22 1130 by Mauro Fernandez RN documented in this encounter Social History Tobacco [...] OR Notes * Anesthesia Postprocedure Evaluation - Douglas Sinha MD - 06/01/2022 3:23 PM EDT Department of Anesthesiology Post-procedure Note Patient: Eliza Moya Procedure Summary Date: 06/01/22 Room / Location: [facility] OR [address] [place] [address] MAIN OR Anesthesia Start: 0756 Anesthesia Stop: 1449 Procedures: @REPAIR ANT. ABDOMINAL HERNIA(S) (IE, EPIGASTRIC, INCISIONAL, VENTRAL, UMBILICAL, SPIGELIAN), INITIAL, W-WO MESH; GREATER THAN 10 CM, INCARCERATED OR STRANGULATED (WRVU 18.67) (Abdomen) MODIFIER MESH,BARD SOFT MESH (Abdomen) @LYSIS OF ADHESIONS, ABD. (WRVU 18.46) (Abdomen) FLAP, MYOCUTANEOUS OR FASCIOCUTANEOUS, TRUNK (WRVU 23) (Abdomen) Diagnosis: Incisional hernia, without obstruction or gangrene (Incisional hernia) Surgeons: Whit Nance MD Responsible Provider: Douglas Sinha MD Anesthesia Type: general ASA Status: 3 All Anesthesia Providers: Anesthesiologist: Douglas Sinha MD SECURITY INFRASTRUCTURE ENGINEER: Pa Manzanares CRNA Vitals Value Taken Time BP 146/82 06/01/22 1515 Temp 36.7 ??C (98.1 ??F) 06/01/22 1441 Pulse 95 06/01/22 1522 Resp 25 06/01/22 1522 SpO2 95 % 06/01/22 1522 Pain Level 2 06/01/22 1515 Vitals shown include unvalidated device data. Patient Location: PACU/[facility] Level of Consciousness: Conscious but Sleepy Pain Management: Satisfactory Analgesia PONV: None Cardiovascular Status: At Baseline and Hemodynamically Stable Respiratory Status: Supplemental O2 (NC or FM) Postoperative Fluid Status: Intravascular EUvolemia Possible Anesthetic Complications: NONE apparent at time of evaluation Final Primary Anesthesia Type: General (The anesthetic type performed was the same as planned.) Comments: Breathing well spontaneously, pain controlled with epidural, vitals stable Douglas Sinha MD * Anesthesia Procedure Notes - Elida Pickens MD - 06/01/2022 12:12 PM EDTAssociated Order(s): Neuraxial Block Procedure: Neuraxial Block Post-op Pain Control Post-op pain management at the request of surgeon. Type: Epidural The patient was greeted. The sedation plan, its benefits, risks and alternatives were discussed with the patient. The patient has consented to the procedure. The medical history and chart were reviewed. The timeout was performed. Start time: 06/01/2022 7:15 AM End time: 06/01/2022 7:25 AM Patient Location: Other - add comment (OR 19) Patient Prep Position: Prone Prep: Hand Hygiene, Hat, Mask, Sterile Gloves, Gown, Chlorhexidine and Patient Draped Injection technique: continuous Skin Anesthetic Lidocaine 1% 5 ml Procedure Technique Level of needle insertion: L1-2 Needle approach: paramedian and left Needle Type: Tuohy Gauge: 17 Needle length: 3.5 in Needle insertion depth when JG achieved: 8 cm Technique for Loss of Resistance: JG saline A 21 guage catheter introduced into the space. Dressing/Secured with: Chlorhexidine Tegaderm and Tegaderm Number of attempts: 1 Medications: Date/Time: 06/01/2022 7:15 AM Events/Notes Imaging: epidurogram obtained and fluoroscopy guided Level of Epidural Tip via Fluoroscopy: T8-9 Iohexol 240 mgI/mL, 2 mL Resident/SECURITY INFRASTRUCTURE ENGINEER: Second Resident/SECURITY INFRASTRUCTURE ENGINEER: SRNA: Fellow: Elida Pickens MD Attending Physician: Timothy Murphy MD ~~~~~~~~~~~~~~~~~~~~~~~~~~~~~~~~~~~~~~~~~~~~~~~~~~~~~~~~~~~~ * Anesthesia Preprocedure Evaluation - Douglas Sinha MD - 06/01/2022 7:28 AM EDT Images from the original note were not included. Pre-Anesthesia Evaluation for: Eliza Moya a 57 y.o. female. Procedure(s): @REPAIR ANT. ABDOMINAL HERNIA(S) (IE, EPIGASTRIC, INCISIONAL, VENTRAL, UMBILICAL, SPIGELIAN), INITIAL, W-WO MESH; GREATER THAN 10 CM, INCARCERATED OR STRANGULATED (WRVU 18.67) MODIFIER MESH,BARD VENTRALIGHT ST Patient Active Problem List Diagnosis Date Noted ??? CAD (coronary artery disease) 07/29/2021 ??? [...] DRAINAGE 05/27/2020 CT Guided Drain Peritoneal 05/27/2020 [facility] RAD CAT SCAN ??? CT PERITONEAL DRAINAGE 05/27/2020 CT Guided Drain Peritoneal 05/27/2020 [facility] RAD CAT SCAN ??? CT PERITONEAL DRAINAGE 05/27/2020 CT Guided Drain Peritoneal 05/27/2020 [facility] RAD CAT SCAN ??? IR CHEST TUBE PLACEMENT BILATERAL 05/15/2020 IR Chest Tube Placement Bilateral 05/15/2020 Ricky Hollis MD [facility] INTERVENTIONL RAD ??? PRO AMPUTATE THIGH, OPEN CIRCULAR Right 05/11/2020 AMPUTATION, ABOVE-KNEE, OPEN, GUILLOTINE (WRVU 10.98) performed by Christine Montgomery MD at [facility] OR ??? PRO AMPUTATE THIGH, SECONDRY CLOSUR Right 06/13/2020 AMPUTATION, ABOVE-KNEE, SECONDARY CLOSURE OR SCAR REVISION (WRVU 7.29) performed by Christine Montgomery MD at [facility] OR ??? PRO CHOLECYSTOENTER+DONAVAN-EN-Y+GASTROENT N/A 05/12/2020 @DONAVAN-EN-Y WITH GASTROENTEROSTOMY (WRVU 24.21) performed by Meme Torres MD at [facility] OR ??? PRO EXPLORATION OF ABDOMEN N/A 05/11/2020 @EXPLORATORY LAPAROTOMY, WITH/WITHOUT BIOPSY(S) (WRVU 12.54) performed by Meme Torres MD at [facility] OR ??? PRO GASTROJEJUNOSTOMY N/A 05/12/2020 @GASTROJEJUNOSTOMY (WRVU 22.53) performed by Meme Torres MD at [facility] OR ??? PRO REOPEN RECENT ABD EXPLORATORY N/A 05/12/2020 @EXPLORATORY LAPAROTOMY, REOPENING OF RECENT (WRVU 17.63) performed by Meme Torres MD at [facility] OR ??? PRO REOPEN RECENT ABD EXPLORATORY Midline 05/16/2020 @EXPLORATORY LAPAROTOMY, REOPENING OF RECENT (WRVU 17.63) performed by Nakul Vega MD at [facility] OR ??? PRO REOPEN RECENT ABD EXPLORATORY Midline 05/18/2020 @EXPLORATORY LAPAROTOMY, REOPENING OF RECENT (WRVU 17.63) performed by Marco Silver MD at [facility] OR ??? PRO REPAIR PERF DUOD/JIMENA ULC-WND/INJ N/A 05/11/2020 GASTRORRHAPHY, SUTURE OF PERFORATED, ULCER, WOUND, INJURY (WRVU 22.83) performed by Meme oTrres MD at [facility] OR ??? PRO RESECT SMALL INTEST, SINGL RESEC/ANAS N/A 05/12/2020 @BOWEL RESECTION, SMALL INTESTINE SINGLE ANASTOMOSIS (WRVU 20.82) performed by Meme Torres MD at [facility] OR ??? PRO SUTURE ABD WALL-DEHIS/EVISCER Midline 05/20/2020 @SUTURE, SECONDARY, OF ABD WALL FOR EVISCERATION OR DEHISCENCE (WRVU 12.41) performed by Antonio Akbar MD at [facility] OR ? ? PRO UNLISTED PX ABD PRTM&OMENTUM N/A 05/20/2020 SUTURE OMENTUM (WRVU 11.1) performed by Antonio Akbar MD at [facility] OR ??? PRO UNLISTED PX ABDOMEN MUSCULOSKELETAL SYSTEM Midline 05/16/2020 WOUND CLOSURE, ABDOMINAL, PARTIAL W/ WOUND VAC (WRVU 6.39) performed by Nakul Vega MD at [facility] OR ??? PRO UPPER GI ENDOSCOPY, BIOPSY N/A 11/25/2020 EGD WITH BIOPSY (WRVU 2.49) performed by Kervin Rubio MD at [facility] ENDOSCOPY Social History Tobacco Use ??? Smoking [...] Physical Exam: Preprocedure Vitals Current as of 06/01/22 0728 BP: 134/61 Pulse: 77 Resp: 18 SpO2: 94 Temp: 36.3 ??C (97.3 ??F) Height: 160 cm (5' 3) (06/01/22) Weight: 90.7 kg (200 lb) (06/01/22) BMI: 35.42 IBW: 52.4 kg (115 lb 7.7 oz) Last edited 06/01/22 0623 by Airway Assessment: Mallampati: III TM distance: >3 FB Neck ROM: full Cardiovascular Assessment: Rhythm: regular Rate: normal Pulmonary Assessment: breath sounds clear to auscultation Dental Assessment: Misc Assessment: Last Filed Perioperative Cognitive Screening None Anesthesia Plan: ASA 3 general, with a(n) intravenous induction Attending Assessment: Patient personally seen and examined. 57yo F 91kg BMI 35 with large ventral hernia presenting for repair. PMH: COPD, PAD s/p right AKA, HTN, CAD s/p BENSON to ostial OM 05/27, pAF, duodenal perforation 05/2020with an open abdomen and donavan-en-y- duodenojejunostomy (prolonged hospitalization, ICU course), h/oaddiction problem with oxycodone (no longer takes opioids, takes gabapentin for R AKA pain) TTE 06/02/2021: LVEF 60%, wall thickness mildly increased, basal-mid inferolateral wall and mid anterolateral wegment are hypokinetic. RV normal. No significant valvular disease. LHC 06/04/2021: 1-vessel CAD, s/p PCI to ostial OM2 EKG 05/2021: NSR at 65bpm, normal No recent URI. Able to lie flat w/o SOB or GERD symptoms. No CP/palpitations/lightheadedness. Limited functional status due to AKA, uses wheelchair No problems with anesthesia in the past. Meds: reviewed, stopped Eliquis 72hrs ago, Plavix 5 days ago NPO status adequate Last value Range last 24 hrs Heart Rate Heart Rate: 77 Heart Rate: (77) Blood Pressure BP: 134/61 BP: (134)/(61) Respiratory Rate Resp: 18 Resp: (18) SpO2 SpO2: 94 % SpO2: (94 %) Plan: - preop Tylenol, albuterol MDI - preop epidural - standard ASA monitors, PIV x2, post-induction arterial line - GETA The patient was informed of the risks, benefits and alternatives of anesthesia. These risks included, but were not limited to, post-operative nausea and/or vomiting, pain, sore throat, dental/lip injury, and other rare but serious complications such as cardiac instability/arrest, neurologic event, awareness, severe allergic reactions, position-related nerve injuries, and need blood transfusions. All questions sought and answered. Consent was signed and placed in chart. Douglas Sinha MD 06/01/2022 Region - Other Informed Consent: Anesthetic plan and risks discussed with patient. Use of blood products discussed with patient who consented to blood products. Plan discussed with SECURITY INFRASTRUCTURE ENGINEER. Anesthesia Screening documented in this encounter Plan of Treatment Not on file documented as of this encounter Procedures Procedure Name Priority Date/Time Associated Diagnosis Comments [id number] ONLY Routine 06/01/2022 7:15 AM EDT documented in this encounter Results * [id number] ONLY (06/01/2022 7:15 AM EDT) Narrative Timothy Murphy MD - 06/01/2022 7:15 AM EDT Elida Pickens MD ? 06/01/2022 12:13 PM Procedure: ?? Neuraxial Block Post-op Pain Control Post-op pain management at the request of surgeon. Type: Epidural The patient was greeted. The sedation plan, its benefits, risks and alternatives were discussed with the patient. ??The patient has consented to the procedure. ??The medical history and chart were reviewed. ??The timeout was performed. Start time: 06/01/2022 7:15 AM End time: 06/01/2022 7:25 AM Patient Location: Other - add comment (OR 19) Patient Prep Position: Prone Prep: Hand Hygiene, Hat, Mask, Sterile Gloves, Gown, Chlorhexidine and Patient Draped Injection technique: continuous Skin Anesthetic Lidocaine 1% ??5 ml Procedure Technique Level of needle insertion: L1-2 Needle approach: paramedian and left Needle Type: Tuohy Gauge: 17 Needle length: 3.5 in Needle insertion depth when JG achieved: 8 cm Technique for Loss of Resistance: JG saline A 21 guage catheter introduced into the space. Dressing/Secured with: Chlorhexidine Tegaderm and Tegaderm Number of attempts: 1 Medications: Date/Time: ??06/01/2022 7:15 AM Events/Notes Imaging: ??epidurogram obtained and fluoroscopy guided Level of Epidural Tip via Fluoroscopy: T8-9 Iohexol 240 mgI/mL, 2 mL Resident/SECURITY INFRASTRUCTURE ENGINEER: ? Second Resident/SECURITY INFRASTRUCTURE ENGINEER: SRNA: ? Fellow: ?Elida Pickens MD Attending Physician: ? Timothy Murphy MD ~~~~~~~~~~~~~~~~~~~~~~~~~~~~~~~~~~~~~~~~~~~~~~~~~~~~~~~~~~~~ Timothy Murphy MD [facility] documented in this encounter Visit Diagnoses Not on filedocumented in this encounter Administered Medications Inactive Administered Medications - up to 3 most recent administrations Medication Order MAR Action Action Date Dose Rate Site albumin (human) 5% 250 mL intravenous solution Intravenous, CONTINUOUS PRN, Starting on Wed06/01/22 at 0935, Until Wed06/01/22 at 1449, Anesthesia Intra-op, Routine New Bag 06/01/2022 9:35 AM EDT ceFAZolin (Ancef) 1 g in dextrose 5% 50 mL infusion Intravenous, PRN, Starting on Wed06/01/22 at 0859, Until Wed06/01/22 at 1449, Administer over 30 Minutes, Anesthesia Intra-op Given 06/01/2022 12:55 PM EDT 2 g Given 06/01/2022 8:59 AM EDT 2 g dexAMETHasone (Decadron) injection Intravenous, PRN, Starting on Wed06/01/22 at 0856, Until Wed06/01/22 at 1449, Anesthesia Intra-op, Routine Given 06/01/2022 8:56 AM EDT 4 mg electrolyte replacement solution (pH 7.4) (Normosol-R, Plasmalyte-A) infusion Intravenous, CONTINUOUS PRN, Starting on Wed06/01/22 at 0812, Until Wed06/01/22 at 1449, Anesthesia Intra-op New Bag 06/01/2022 8:12 AM EDT HYDROmorphone (pf) (10 mcg/mL), BUpivacaine (pf) 0.1% in sodium chloride 0.9% 250 mL epidural Epidural, Anesthesia Intra-op New Bag 06/01/2022 8:54 AM EDT 6 mL/hr 6 mL/hr lactated ringers infusion Intravenous, CONTINUOUS PRN, Starting on Wed06/01/22 at 0723, Until Wed06/01/22 at 1449, Anesthesia Intra-op New Bag 06/01/2022 12:58 PM EDT New Bag 06/01/2022 7:23 AM EDT lidocaine (pf) (Xylocaine) (20 mg/mL) 2% injection syringe Intravenous, PRN, Starting on Wed06/01/22 at 0806, Until Wed06/01/22 at 1449, Anesthesia Intra-op, Routine Given 06/01/2022 8:06 AM EDT 40 mg ondansetron (pf) (Zofran) (2 mg/mL) injection Intravenous, PRN, Starting on Wed06/01/22 at 1409, Until Wed06/01/22 at 1449, Anesthesia Intra-op, Routine Given 06/01/2022 2:09 PM EDT 8 mg PHENYLephrine (Giancarlo-Synephrine) (80 mcg/mL) in sodium chloride 0.9% 250 mL infusion Intravenous, CONTINUOUS PRN, Starting on Wed06/01/22 at 0814, Until Wed06/01/22 at 1449, Anesthesia Intra-op, Routine Rate/Dose Change 06/01/2022 1:48 PM EDT 20 mcg/min 15 mL/hr Restarted 06/01/2022 10:50 AM EDT 10 mcg/min 7.5 mL/hr Rate/Dose Change 06/01/2022 9:53 AM EDT 10 mcg/min 7.5 mL/ hr PHENYLephrine in NS (PF) (GIANCARLO-SYNEPHRINE) 0.8 mg/10 mL (80 mcg/mL) multi-dose injection Syrg Intravenous, PRN, Starting on Wed06/01/22 at 0813, Until Wed06/01/22 at 1449, Anesthesia Intra-op, Routine Given 06/01/2022 8:13 AM EDT 80 mcg propofoL (Diprivan) (10 mg/mL) infusion Intravenous, CONTINUOUS PRN, Starting on Wed06/01/22 at 0831, Until Wed06/01/22 at 1449, Anesthesia Intra-op, Routine Rate/Dose Change 06/01/2022 9:44 AM EDT 30 mcg/kg/min 16.326 mL/hr Rate/Dose Change 06/01/2022 8:51 AM EDT 50 mcg/kg/min 27.2 1 mL/hr New Bag 06/01/2022 8:31 AM EDT 100 mcg/kg/min 54.42 mL/ hr propofoL (Diprivan) 10 mg/mL bolus injection (Anesthesia) Intravenous, PRN, Starting on Wed06/01/22 at 0806, Until Wed06/01/22 at 1449, Anesthesia Intra-op Given 06/01/2022 8:09 AM EDT 50 mg Given 06/01/2022 8:06 AM EDT 100 mg rocuronium (Zemuron) (10 mg/mL) multi-dose injection Intravenous, PRN, Starting on Wed06/01/22 at 0806, Until Wed06/01/22 at 1449, Anesthesia Intra-op, Routine Given 06/01/2022 1:31 PM EDT 10 mg Given 06/01/2022 12:21 PM EDT 20 mg Given 06/01/2022 10:30 AM EDT 20 mg sugammadex (Bridion) 100 mg/mL injection Intravenous, PRN, Starting on Wed06/01/22 at 1416, Until Wed06/01/22 at 1449, Anesthesia Intra-op, Routine Given 06/01/2022 2:16 PM EDT 360 mg documented in this encounter Care Teams Hospital Security Officer Relationship Specialty Start Date End Date Nya Hernandez, MANAGER FINE DINING [address] [place] [id number] PCP - General Family Medicine 05/07/21 documented as of this encounter
--- OUTSIDE RECORDS SUMMARY | 2023-12-28 16:19 | XMS_ITS | Encounter Summary ---
Author Organization [facility] Address [facility] [place] [address] Care Team Providers Care Wine Pasteurizer Name Role Phone Nya Hernandez APRN Primary Care Provider [phone]- [phone] Encounter Details Date Type Department Care Team (Latest Contact Info) Description 04/07/2022 8:45 AM EST TH Visit (TeleHealth) [place] [address] [facility] [place] [address] Incisional hernia, without obstruction or gangrene Social History Tobacco Use Types Packs/Day Years [...] Progress Notes * Whit Nance MD - 04/07/2022 8:45 AM EST I followed up with Ms. Moya today after her nicotine test. This was negative. We have a date forsurgery for her on 06/01. I encouraged her to continue her smoking cessation efforts. We also discussed that she will need to stop her eliquis for 72 hours and her plavix for 5 days prior to surgery. She will likely be a candidate for an epidural for pain management. Has already been reviewed by [facility]. Whit Nance MD documented in this encounter Plan of Treatment Not on file documented as of this encounter Visit Diagnoses Diagnosis Incisional hernia, without obstruction or gangrene Incisional hernia without mention of obstruction or gangrene documented in this encounter Care Teams Wine Pasteurizer Relationship Specialty Start Date End Date Nya Hernandez APRN [address] [place] [id number] PCP - General Family Medicine 05/07/21 documented as of this encounter
--- OUTSIDE RECORDS SUMMARY | 2023-12-28 16:19 | XMS_ITS | Encounter Summary ---
Author Organization [facility] [place] [address] Care Team Providers Care Chiropractic Practice Manager Name Role Phone Nya Hernandez APRN Primary Care Provider [phone]- [phone] Encounter Details Date Type Department Care Team (Latest Contact Info) Description 03/19/2022 10:00 AM EST TH Visit (TeleHealth) [place] [address] Whit Nance MD [facility] [place] [address] Incisional hernia, without obstruction or gangrene Social [...] Progress Notes * Whit Nance MD - 03/19/2022 10:00 AM EST [facility] General Surgery Telehealth Follow up Subjective: I am following up with Ms. Moya today regarding her incisional hernia. She was scheduled for surgery with me on 02/20 but she cancelled. She wanted to spend the holidays with her family. I had her repeat a nicotine screen last week but this came back positive. She says she hasn't smoked in 1 month but has been around second hand smoke. She went to the ED locally this week for increased abdominal pain. A CT scan was done with no acute findings. She says her hernia has become larger but she is still having regular bowel function. Assessment/Plan: 57 yo woman with a large complex incisional hernia. I discussed that her positive nicotine screen is concerning. I will not proceed with surgery if this is positive. I have asked herto repeat this in 2 weeks. If it is negative we can give her a date for surgery. Whit Nance MD General Surgery Minimally Invasive Surgery [phone] documented in this encounter Plan of Treatment Not on file documented as of this encounter Visit Diagnoses Diagnosis Incisional hernia, without obstruction or gangrene Incisional hernia without mention of obstruction or gangrene documented in this encounter Care Teams Chiropractic Practice Manager Relationship Specialty Start Date End Date Nya Hernandez APRN [address] [place] [id number] PCP - General Family Medicine 05/07/21 documented as of this encounter
--- OUTSIDE RECORDS SUMMARY | 2023-12-28 16:19 | XMS_ITS | Encounter Summary ---
[facility] [place] [address] Care Team Providers Care Bead Flipper Name Role Phone Nya Hernandez SERGIO Primary Care Provider [phone]- [phone] Encounter Details Date Type Department Care Team (Late st Contact Info) Description 05/22/2022 Telephone [place] [address] Savita Shannon RN Social History Tobacco Use Types Packs/Day [...] encounter Miscellaneous Notes * Telephone Encounter - Savita Shannon RN - 05/22/2022 9:37 AM EDT I spoke with Eliza this morning and confirmed with her that her last dose of Plavix should be on 05/26 and last dose of Eliquis should be on 05/28, in preparation for her upcoming surgery with Dr. Nance. Eliza is in agreement with this plan and was appreciative of the reminder call. documented in this encounter Plan of Treatment Not on file documented as of this encounter Visit Diagnoses Not on filedocumented in this encounter Care Teams Bead Flipper Relationship Specialty Start Date End Date Nya Hernandez APRN [address] [place] [id number] PCP - General Family Medicine 05/07/21 documented as of this encounter
--- OUTSIDE RECORDS SUMMARY | 2023-12-28 16:19 | XMS_ITS | Encounter Summary ---
Author Organization Formerly [facility] [place] [address] Care Team Providers Care Platform Material Handling Supervisor Name Role Phone Nya Hernandez SERGIO Primary Care Provider [phone] Reason for Visit * Auth/Cert (Routine) Specialty Diagnoses / Procedures Referred By Tomas early Referred To Contact Diagnoses Incisional hernia Procedures PRO REPAIR AA HERNIA INITIAL > 10 CM INCARCERATED/STRANGULATED @REPAIR ANT. ABDOMINAL HERNIA(S) (IE, EPIGASTRIC, INCISIONAL, VENTRAL, UMBILICAL, SPIGELIAN), INITIAL, W-WO MESH; GREATER THAN 10 CM, INCARCERATED OR STRANGULATED MODIFIER MESH,BARD [address] Whit Nance MD [facility] [address] [address] [facility] Referral ID Status Reason Start Date Expiration Date Visits Re quested Visits Authorized [id number] 1 1 Encounter Details Date Type Department Care Team (Latest Contact Info) Description 06/01/2022 6:04 AM EDT - 06/05/2022 2:57 PM EDT Hospital Encounter Surgical Unit Level 3 [place] [address] Whit Nance MD [facility] [address] [address] Incisional hernia, without obstruction or gangrene; Chronic obstructive pulmonary disease, unspecified COPD type Discharge Disposition: Against Medical Advice Social History Tobacco Use Types Packs/Day Years [...] Sign Reading Time Taken Comments Blood Pressure 137/61 06/05/2022 7:29 AM EDT Pulse 98 06/03/2022 5:06 PM EDT Temperature 36.8 ??C (98.2 ??F) 06/05/2022 7:29 AM ED T Respiratory Rate 18 06/05/2022 7:29 AM EDT Oxygen Saturation 96% 06/05/2022 1:00 PM EDT Inhaled Oxygen Concentration - - [...] 57 y.o. : 1965 Attending Physician: Whit Nanec MD Date of Admission: 06/01/2022 Date of [...] who have questions please contact the health livestock caretaker that requested your imaging first. Electronically signed by: Desi Daniel MD, [facility] ([phone]), at 06/04/2022 9:15 AM SCAN DOC: CT [...] puff into the lungs daily. Generic drug: cmvdurmdpkg-oyaziuxvaudq-rbsmzxodvl 1 puff Refills: 0 UNREVIEWED medications - [...] PM Whit Nance MD General Surgery at [facility] Arrive at: Swimming Pool Installer And Servicer Area [phone] 06/29/2022 2:45 PM Whit Nance MD General Surgery at [facility] Arrive at: Swimming Pool Installer And Servicer Area Future Orders Complete By Expires Home Oxygen [...] (if performed) 3 - Signed and dated [id number] evaluation documenting the need for Oxygen Scheduling [...] hours please call the Surgery Clinic at [phone] before 5 PM on weekdays. For questions after hours and on weekends please call the hospital paper rewinder operator at [phone] and ask for the General Surgery resident oracle endeca consultant. They may not be familiar with your [...] yourself from the pain. Follow-up: Please call [phone] (clinic number for appointments) to confirm or change the date and time ofyour appointment. Future Appointments Date Time Provider Department Center 06/15/2022 1:45 PM Whit Nance MD [facility] SURG [facility] 06/29/2022 2:45 PM Whit Nance MD [facility] SURG [facility] General Instructions None Future Appointments and Orders Future Appointments and Orders Future Appointments Provider Department Dept Phone 06/15/2022 1:45 PM Whit Nance MD General Surgery at [facility] Arrive at: Swimming Pool Installer And Servicer Area 06/29/2022 2:45 PM Whit Nance MD General Surgery at [facility] Arrive at: Swimming Pool Installer And Servicer Area Future Orders Complete By Expires Home Oxygen [...] (if performed) 3 - Signed and dated [id number] evaluation documenting the need for Oxygen Scheduling [...] performed?: Oxygen Conserving Device (OCD) needed?: Signed: Ramnoa Arvizu MD 06/05/22 Primary [place] Physician: Nya Hernandez APRN [address] / [facility] [id number] documented in this encounter Discharge Instructions * [...] hours please call the Surgery Clinic at [phone] before 5 PM on weekdays. For questions after hours and on weekends please call the hospital paper rewinder operator at [phone] and ask for the General Surgery resident oracle endeca consultant. They may not be familiar with your [...] yourself from the pain. Follow-up: Please call [phone] (clinic number for appointments) to confirm or change the date and time ofyour appointment. Future Appointments Date Time Provider Department Center 06/15/2022 1:45 PM Whit Nance MD [facility] SURG [facility] 06/29/2022 2:45 PM Whit Nance MD [facility] SURG [facility] documented in this encounter Medications at Time [...] - 06/05/2022 3:12 PM EDT Pt left [facility] after signing AMA paperwork. Pt expressed she [...] after she had done so and left [facility]. I tried to call her and she [...] [facility] (Resp Supplies) Central Intake: Success: [place]: (They cover all of [place]) Expected date of discharge: 06/05. Referral routed to the Supervisor [place] for matching with agency/vendor and to provide [...] [facility] (Resp Supplies) Central Intake: Success: [place]: (They cover all of [place]) I anticipate that Eliza Moya will be [...] to attempt later as time allows. Pager: [phone] Charity Daniel OT 06/04/2022 Occupational Therapy Rehabilitation Department * Jerry Miller - 06/04/2022 1:01 PM EDT Canoe Builder Encounter Note Patient Name: Eliza Moya : [id number] MR#: [id number] Admit Date: 06/01/2022 6:04 AM Hospital Day 3 days Narrative:Visited to introduce and assess acceptance of Canoe Builder services. Assessment: Patient was awake, alert and [...] Outcome:Provided emotional, spiritual support and listening presence. Canoe Builder services accepted. Conversation to build trusting relationship. [...] 0700 In: 1682 [P.O.:800; I.V.:882] Out: 2124 [Urine:1925] Intake and Output: I/O last 3 completed [...] 750 mg 750 mg Oral TID Steph Bneítez PA 750 mg at ??? lidocaine (Lidoderm) [...] all four extremities spontaneously Recent Labs 06/04/22 0334 06/03/22 0359 06/02/22 0938 06/02/22 0347 06/01/22 1538 WBC 12.9* 12.4* 12.8* 14.2* 19.2* HGB 9.7* 10.6* 10.9* 10.9* 13.3 HCT 30.4* 33.7* 34.1* 34.4* 41.9 PLATELET 361* 317 400* 424* 430* Recent Labs 06/04/22 0334 06/03/22 0359 06/02/22 0938 06/02/22 03406/01/22 1538 NA 140 138 135 135 141 [...] Surgery 8:56 AM 06/04/22 MIS service pager: [phone] Addendum: Hemoglobin stable at 10.1 on 09 recheck, likely dilutional and not due to [...] DRAINAGE 05/27/2020 CT Guided Drain Peritoneal 05/27/2020 [facility] RAD CAT SCAN ??? CT PERITONEAL DRAINAGE 05/27/2020 CT Guided Drain Peritoneal 05/27/2020 [facility] RAD CAT SCAN ??? CT PERITONEAL DRAINAGE 05/27/2020 CT Guided Drain Peritoneal 05/27/2020 [facility] RAD CAT SCAN ??? IR CHEST TUBE PLACEMENT BILATERAL 05/15/2020 IR Chest Tube Placement Bilateral 05/15/2020 Ricky Hollis MD [facility] INTERVENTIONL RAD ??? PRO AMPUTATE THIGH, OPEN CIRCULAR Right 05/11/2020 AMPUTATION, ABOVE-KNEE, OPEN, GUILLOTINE (WRVU 10.98) performed by Christine Montgomery MD at [facility] OR ??? PRO AMPUTATE THIGH, SECONDRY CLOSUR Right 06/13/2020 AMPUTATION, ABOVE-KNEE, SECONDARY CLOSURE OR SCAR REVISION (WRVU 7.29) performed by Christine Montgomery MD at [facility] OR ??? PRO CHOLECYSTOENTER+DONAVAN-EN-Y+GASTROENT N/A 05/12/2020 @DONAVAN-EN-Y WITH GASTROENTEROSTOMY (WRVU 24.21) performed by Meme Torres MD at [facility] OR ??? PRO EXPLORATION OF ABDOMEN N/A 05/11/2020 @EXPLORATORY LAPAROTOMY, WITH/WITHOUT BIOPSY(S) (WRVU 12.54) performed by Meme Torres MD at [facility] OR ??? PRO GASTROJEJUNOSTOMY N/A 05/12/2020 @GASTROJEJUNOSTOMY (WRVU 22.53) performed by Meme Torres MD at [facility] OR ??? PRO MUSCLE-SKIN FLAP, TRUNK N/A 06/01/2022 FLAP, MYOCUTANEOUS OR FASCIOCUTANEOUS, TRUNK (WRVU 23) performed by Whit Nance MD at [facility] OR ??? PRO REOPEN RECENT ABD EXPLORATORY N/A 05/12/2020 @EXPLORATORY LAPAROTOMY, REOPENING OF RECENT (WRVU 17.63) performed by Meme Torres MD at [facility] OR ??? PRO REOPEN RECENT ABD EXPLORATORY Midline 05/16/2020 @EXPLORATORY LAPAROTOMY, REOPENING OF RECENT (WRVU 17.63) performed by Nakul Vega MD at [facility] OR ??? PRO REOPEN RECENT ABD EXPLORATORY Midline 05/18/2020 @EXPLORATORY LAPAROTOMY, REOPENING OF RECENT (WRVU 17.63) performed by Marco Silver MD at [facility] MAIN OR ? ? PRO REPAIR AA HERNIA INITIAL > 10 CM REDUCIBLE N/A 06/01/2022 REPAIR ANT. ABDOMINAL HERNIA(S) (IE, EPIGASTRIC, INCISIONAL, VENTRAL, UMBILICAL, SPIGELIAN), INITIAL, W-WO MESH; GREATER THAN 10 CM, REDUCIBLE (WRVU 13.94) performed by Whit Nance MD at [facility] MAIN OR ??? PRO REPAIR PERF DUOD/JIMENA ULC-WND/INJ N/A 05/11/2020 GASTRORRHAPHY, SUTURE OF PERFORATED, ULCER, WOUND, INJURY (WRVU 22.83) performed by Meme Torres MD at [facility] OR ??? PRO RESECT SMALL INTEST, SINGL RESEC/ANAS N/A 05/12/2020 @BOWEL RESECTION, SMALL INTESTINE SINGLE ANASTOMOSIS (WRVU 20.82) performed by Meme Torres MD at [facility] OR ??? PRO SUTURE ABD WALL-DEHIS/EVISCER Midline 05/20/2020 @SUTURE, SECONDARY, OF ABD WALL FOR EVISCERATION OR DEHISCENCE (WRVU 12.41) performed by Antonio Akbar MD at [facility] OR ? ? PRO UNLISTED PX ABD PRTM&OMENTUM N/A 05/20/2020 SUTURE OMENTUM (WRVU 11.1) performed by Antonio Akbar MD at [facility] OR ??? PRO UNLISTED PX ABDOMEN MUSCULOSKELETAL SYSTEM Midline 05/16/2020 WOUND CLOSURE, ABDOMINAL, PARTIAL W/ WOUND VAC (WRVU 6.39) performed by Nakul Vega MD at [facility] OR ??? PRO UPPER GI ENDOSCOPY, BIOPSY N/A 11/25/2020 EGD WITH BIOPSY (WRVU 2.49) performed by Kervin Rubio MD at [facility] ENDOSCOPY Social History: Home set-up: Lives with [...] with contact guard to min assist of engineer technical staff. ?? Please encourage up to chair for [...] 31 Billing Code: lashawn SCHMITT, PT Pager: [phone] Physical Therapy Inpatient Rehabilitation Department * Steph [...] Crystal Francois MD And ??? Neuraxial (Epidural) phma Epidural Continuous PRN Crystal Francois MD ??? [...] Nightly Ramona Arvizu MD 9 mg at 06/02/220 ??? ipratropium-albuteroL (Duoneb) 0.5 mg-3 mg(2.5 mg [...] Daily Ramona Arvizu MD 40 mg at 03 ??? traZODone (Desyrel) tablet 25 mg 25 [...] Q8H Rena Leon MD 975 mg at 06/03/22 0823 ??? gabapentin (Neurontin) capsule 300 mg 300 [...] spontaneously Recent Labs 06/03/22 0359 06/02/22 0938 06/02/227 06/01/22 1538 WBC 12.4* 12.8* 14.2* 19.2* HGB 10.6* 10.9* 10.9* 13.3 HCT 33.7* 34.1* 34.4* 41.9 PLATELET 317 400* 424* 430* Recent Labs 06/03/22 0359 06/02/22 0938 06/02/2234606/01/22 1538 NA 138 135 135 141 K [...] Surgery 9:30 AM 06/03/22 MIS service pager: [phone] Associated attestation - Whit Nance MD - [...] (non loading dose) may be administered anytime. IMELIDA, RN, have performed the documentation for this encounter in the presence of andacting as a scribe for Dr. Francois. I performed the above scribed service and agree with the accuracy of the note. Crystal Francois MD [facility] Nurse: Melida Lozoya RN Resident:: Danie Sandhu MD Fellow:: Elida [...] ordered benadryl to help with the pruritis. ICYRIL RN, have performed the documentation for this encounter in the presence of and acting as a scribe for Dr. Francois. I performed the above scribed service and agree with the accuracy of the note. Crystal Francois MD [facility] Nurse: Cyril Rouse RN Resident:: Danie Sandhu MD Fellow:: Elida [...] with dPCEA, patient reports she only hit FILAMENT CUTTER button by accident once, otherwise pain well [...] injection 12.5 mg 12.5 mg Intravenous Q6H [facility] Crystal Francois MD ??? aspirin chewable tablet [...] BID Ramona Arvizu MD 5 mL at 06/02/22 0908 ??? sodium chloride 0.9 % (flush) (BD [...] BID Ramona Arvizu MD 100 mg at 904 ??? albuteroL (Proventil, Ventolin) (2.5 mg/3 mL) [...] Surgery 10:13 AM 06/02/22 MIS service pager: [phone] * Laura Ramirez RN - 06/02/2022 5:34 [...] epidural. Lee draining. Pt assisted with repositioning. 0620 notified by tele that pt had 13 sec atach/SVT, then back to NSR HR 80s. Pt asymptomatic. Attempting to notify covering provider but paging and secure chat are blocked for #[phone]. * Deandra Basurto RN - 06/02/2022 12:32 [...] and Eliquis Ramona Arvizu MD 06/01/2022 * Antonio Bourne RN - 06/01/2022 6:16 PM EDT [...] Arvizu MD - 06/01/2022 7:20 AM EDT [facility] General Surgery History and Physical Eliza Moya [...] DRAINAGE 05/27/2020 CT Guided Drain Peritoneal 05/27/2020 [facility] RAD CAT SCAN ??? CT PERITONEAL DRAINAGE 05/27/2020 CT Guided Drain Peritoneal 05/27/2020 [facility] RAD CAT SCAN ??? CT PERITONEAL DRAINAGE 05/27/2020 CT Guided Drain Peritoneal 05/27/2020 [facility] RAD CAT SCAN ??? IR CHEST TUBE PLACEMENT BILATERAL 05/15/2020 IR Chest Tube Placement Bilateral 05/15/2020 Ricky Hollis MD [facility] INTERVENTIONL RAD ??? PRO AMPUTATE THIGH, OPEN CIRCULAR Right 05/11/2020 AMPUTATION, ABOVE-KNEE, OPEN, GUILLOTINE (WRVU 10.98) performed by Christine Montgomery MD at [facility] MAIN OR ??? PRO AMPUTATE THIGH, SECONDRY CLOSUR Right 06/13/2020 AMPUTATION, ABOVE-KNEE, SECONDARY CLOSURE OR SCAR REVISION (WRVU 7.29) performed by Christine Montgomery MD at [facility] MA[facility] OR ??? PRO CHOLECYSTOENTER+DONAVAN-EN-Y+GASTROENT N/A 05/12/2020 @DONAVAN-EN-Y WITH GASTROENTEROSTOMY (WRVU 24.21) performed by Meme Torres MD at [facility] OR ??? PRO EXPLORATION OF ABDOMEN N/A 05/11/2020 @EXPLORATORY LAPAROTOMY, WITH/WITHOUT BIOPSY(S) (WRVU 12.54) performed by Meme Torres MD at [facility] OR ??? PRO GASTROJEJUNOSTOMY N/A 05/12/2020 @GASTROJEJUNOSTOMY (WRVU 22.53) performed by Meme Torres MD at [facility] OR ??? PRO REOPEN RECENT ABD EXPLORATORY N/A 05/12/2020 @EXPLORATORY LAPAROTOMY, REOPENING OF RECENT (WRVU 17.63) performed by Meme Torres MD at [facility] OR ??? PRO REOPEN RECENT ABD EXPLORATORY Midline 05/16/2020 @EXPLORATORY LAPAROTOMY, REOPENING OF RECENT (WRVU 17.63) performed by Nakul Vega MD at [facility] OR ??? PRO REOPEN RECENT ABD EXPLORATORY Midline 05/18/2020 @EXPLORATORY LAPAROTOMY, REOPENING OF RECENT (WRVU 17.63) performed by Marco Silver MD at [facility] OR ??? PRO REPAIR PERF DUOD/JIMENA ULC-WND/INJ N/A 05/11/2020 GASTRORRHAPHY, SUTURE OF PERFORATED, ULCER, WOUND, INJURY (WRVU 22.83) performed by Meme Torres MD at [facility] OR ??? PRO RESECT SMALL INTEST, SINGL RESEC/ANAS N/A 05/12/2020 @BOWEL RESECTION, SMALL INTESTINE SINGLE ANASTOMOSIS (WRVU 20.82) performed by Meme Torres MD at [facility] OR ??? PRO SUTURE ABD WALL-DEHIS/EVISCER Midline 05/20/2020 @SUTURE, SECONDARY, OF ABD WALL FOR EVISCERATION OR DEHISCENCE (WRVU 12.41) performed by Antonio Akbar MD at [facility] OR ? ? PRO UNLISTED PX ABD PRTM&OMENTUM N/A 05/20/2020 SUTURE OMENTUM (WRVU 11.1) performed by Antonio Akbar MD at [facility] MA[facility] OR ??? PRO UNLISTED PX ABDOMEN MUSCULOSKELETAL SYSTEM Midline 05/16/2020 WOUND CLOSURE, ABDOMINAL, PARTIAL W/ WOUND VAC (WRVU 6.39) performed by Nakul Vega MD at [facility] MA[facility] OR ??? PRO UPPER GI ENDOSCOPY, BIOPSY N/A 11/25/2020 EGD WITH BIOPSY (WRVU 2.49) performed by Kervin Rubio MD at [facility] ENDOSCOPY Current Facility-Administered Medications: ??? sodium chloride [...] 100 mL Mini-Bag Plus, 2 g, Intravenous, Property Preservation Specialist to OR, Ramona Arvizu MD ??? heparin (porcine) (5,000 units/1 mL) subcutaneous injection 5,000 Units, 5,000 Units, Subcutaneous, Property Preservation Specialist to OR, Ramona Arvizu MD Patient Vitals for the past 24 hrs: Temp Pulse Resp BP SpO2 O2 Device 06/01/22622 36.3 ??C (97.3 ??F) 77 18 134/61 [...] from the original note were not included. [facility] Section of Pulmonary and Critical Care Medicine [...] after perforated duodenal ulcer], who presented to [facility] for midline incisional hernia repair now POD#3. [...] COPD history. She follows with Pulmonology at [facility]. 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 Patient had been on home oxygen in the past, but since quitting smoking ~2 years ago has not needed it. She did briefly need home oxygen1 year ago after discharge from [facility] for NSTEMI but this was quickly weaned [...] DRAINAGE 05/27/2020 CT Guided Drain Peritoneal 05/27/2020 [facility] RAD CAT SCAN ??? CT PERITONEAL DRAINAGE 05/27/2020 CT Guided Drain Peritoneal 05/27/2020 [facility] RAD CAT SCAN ??? CT PERITONEAL DRAINAGE 05/27/2020 CT Guided Drain Peritoneal 05/27/2020 [facility] RAD CAT SCAN ??? IR CHEST TUBE PLACEMENT BILATERAL 05/15/2020 IR Chest Tube Placement Bilateral 05/15/2020 Ricky Hollis MD [facility] INTERVENTIONL RAD ??? PRO AMPUTATE THIGH, OPEN CIRCULAR Right 05/11/2020 AMPUTATION, ABOVE-KNEE, OPEN, GUILLOTINE (WRVU 10.98) performed by Christine Montgomery MD at [facility] OR ??? PRO AMPUTATE THIGH, SECONDRY CLOSUR Right 06/13/2020 AMPUTATION, ABOVE-KNEE, SECONDARY CLOSURE OR SCAR REVISION (WRVU 7.29) performed by Christine Montgomery MD at [facility] OR ??? PRO CHOLECYSTOENTER+DONAVAN-EN-Y+GASTROENT N/A 05/12/2020 @DONAVAN-EN-Y WITH GASTROENTEROSTOMY (WRVU 24.21) performed by Meme Torres MD at [facility] OR ??? PRO EXPLORATION OF ABDOMEN N/A 05/11/2020 @EXPLORATORY LAPAROTOMY, WITH/WITHOUT BIOPSY(S) (WRVU 12.54) performed by Meme Torres MD at [facility] OR ??? PRO GASTROJEJUNOSTOMY N/A 05/12/2020 @GASTROJEJUNOSTOMY (WRVU 22.53) performed by Meme Torres MD at [facility] OR ??? PRO MUSCLE-SKIN FLAP, TRUNK N/A 06/01/2022 FLAP, MYOCUTANEOUS OR FASCIOCUTANEOUS, TRUNK (WRVU 23) performed by Whit Nance MD at [facility] OR ??? PRO REOPEN RECENT ABD EXPLORATORY N/A 05/12/2020 @EXPLORATORY LAPAROTOMY, REOPENING OF RECENT (WRVU 17.63) performed by Meme Torres MD at [facility] OR ??? PRO REOPEN RECENT ABD EXPLORATORY Midline 05/16/2020 @EXPLORATORY LAPAROTOMY, REOPENING OF RECENT (WRVU 17.63) performed by Nakul Vega MD at [facility] OR ??? PRO REOPEN RECENT ABD EXPLORATORY Midline 05/18/2020 @EXPLORATORY LAPAROTOMY, REOPENING OF RECENT (WRVU 17.63) performed by Marco Silver MD at [facility] OR ? ? PRO REPAIR AA HERNIA INITIAL > 10 CM REDUCIBLE N/A 06/01/2022 REPAIR ANT. ABDOMINAL HERNIA(S) (IE, EPIGASTRIC, INCISIONAL, VENTRAL, UMBILICAL, SPIGELIAN), INITIAL, W-WO MESH; GREATER THAN 10 CM, REDUCIBLE (WRVU 13.94) performed by Whit Nance MD at [facility] OR ??? PRO REPAIR PERF DUOD/JIMENA ULC-WND/INJ N/A 05/11/2020 GASTRORRHAPHY, SUTURE OF PERFORATED, ULCER, WOUND, INJURY (WRVU 22.83) performed by Meme Torres MD at [facility] OR ??? PRO RESECT SMALL INTEST, SINGL RESEC/ANAS N/A 05/12/2020 @BOWEL RESECTION, SMALL INTESTINE SINGLE ANASTOMOSIS (WRVU 20.82) performed by Meme Torres MD at [facility] OR ??? PRO SUTURE ABD WALL-DEHIS/EVISCER Midline 05/20/2020 @SUTURE, SECONDARY, OF ABD WALL FOR EVISCERATION OR DEHISCENCE (WRVU 12.41) performed by Antonio Akbar MD at [facility] OR ? ? PRO UNLISTED PX ABD PRTM&OMENTUM N/A 05/20/2020 SUTURE OMENTUM (WRVU 11.1) performed by Antonio Akbar MD at [facility] OR ??? PRO UNLISTED PX ABDOMEN MUSCULOSKELETAL SYSTEM Midline 05/16/2020 WOUND CLOSURE, ABDOMINAL, PARTIAL W/ WOUND VAC (WRVU 6.39) performed by Nakul Vega MD at [facility] OR ??? PRO UPPER GI ENDOSCOPY, BIOPSY N/A 11/25/2020 EGD WITH BIOPSY (WRVU 2.49) performed by Kervin Rubio MD at [facility] ENDOSCOPY Social and Occupational History: Social History [...] TID, Steph Benítez PA, 750 mg at 06/04/22 0932 ??? lidocaine (Lidoderm) 5% patch 1 patch, [...] 975 mg, 975 mg, Oral, Q6H LEMUEL, Setph Benítez PA, 975 mg at06/04/2232 ??? polyethylene glycoL (Miralax) packet 17 g, [...] Daily, Ramona Arvizu MD, 20 mg at 06/04/22 0930 ??? levothyroxine (Synthroid) tablet 50 mcg, 50 [...] who have questions please contact the health livestock caretaker that requested your imaging first. Electronically signed by: Desi Daniel MD, [facility] ([phone]), at 06/04/2022 9:15 AM Labs: Recent Labs [...] -Continue with current COPD therapy and restart Jennifer at discharge Case was discussed with the [...] outlined by Dr. Jones. Sanket Hitchcock MD creative services designer [id number] * Plan of Care - Tess Lozano [...] Pain control Mobilize PT / OT Epidural FILAMENT CUTTER Monitor LUIS drain output Lee D/c planning [...] applicable: n/a * Initial Assessments - Charity Daniel, OT - 06/02/2022 12:49 PM EDT Occupational [...] DRAINAGE 05/27/2020 CT Guided Drain Peritoneal 05/27/2020 [facility] RAD CAT SCAN ??? CT PERITONEAL DRAINAGE 05/27/2020 CT Guided Drain Peritoneal 05/27/2020 [facility] RAD CAT SCAN ??? CT PERITONEAL DRAINAGE 05/27/2020 CT Guided Drain Peritoneal 05/27/2020 [facility] RAD CAT SCAN ??? IR CHEST TUBE PLACEMENT BILATERAL 05/15/2020 IR Chest Tube Placement Bilateral 05/15/2020 Ricky Hollis MD [facility] INTERVENTIONL RAD ??? PRO AMPUTATE THIGH, OPEN CIRCULAR Right 05/11/2020 AMPUTATION, ABOVE-KNEE, OPEN, GUILLOTINE (WRVU 10.98) performed by Christine Montgomery MD at [facility] OR ??? PRO AMPUTATE THIGH, SECONDRY CLOSUR Right 06/13/2020 AMPUTATION, ABOVE-KNEE, SECONDARY CLOSURE OR SCAR REVISION (WRVU 7.29) performed by Christine Montgomery MD at [facility] OR ??? PRO CHOLECYSTOENTER+DONAVAN-EN-Y+GASTROENT N/A 05/12/2020 @DONAVAN-EN-Y WITH GASTROENTEROSTOMY (WRVU 24.21) performed by Meme Torres MD at [facility] OR ??? PRO EXPLORATION OF ABDOMEN N/A 05/11/2020 @EXPLORATORY LAPAROTOMY, WITH/WITHOUT BIOPSY(S) (WRVU 12.54) performed by Meme Torres MD at [facility] OR ??? PRO GASTROJEJUNOSTOMY N/A 05/12/2020 @GASTROJEJUNOSTOMY (WRVU 22.53) performed by Meme Torres MD at [facility] OR ??? PRO MUSCLE-SKIN FLAP, TRUNK N/A 06/01/2022 FLAP, MYOCUTANEOUS OR FASCIOCUTANEOUS, TRUNK (WRVU 23) performed by Whit Nance MD at [facility] OR ??? PRO REOPEN RECENT ABD EXPLORATORY N/A 05/12/2020 @EXPLORATORY LAPAROTOMY, REOPENING OF RECENT (WRVU 17.63) performed by Meme Torres MD at [facility] OR ??? PRO REOPEN RECENT ABD EXPLORATORY Midline 05/16/2020 @EXPLORATORY LAPAROTOMY, REOPENING OF RECENT (WRVU 17.63) performed by Nakul Vega MD at [facility] OR ??? PRO REOPEN RECENT ABD EXPLORATORY Midline 05/18/2020 @EXPLORATORY LAPAROTOMY, REOPENING OF RECENT (WRVU 17.63) performed by Marco Silver MD at [facility] OR ? ? PRO REPAIR AA HERNIA INITIAL > 10 CM REDUCIBLE N/A 06/01/2022 REPAIR ANT. ABDOMINAL HERNIA(S) (IE, EPIGASTRIC, INCISIONAL, VENTRAL, UMBILICAL, SPIGELIAN), INITIAL, W-WO MESH; GREATER THAN 10 CM, REDUCIBLE (WRVU 13.94) performed by Whit Nance MD at [facility] MAIN OR ??? PRO REPAIR PERF DUOD/JIMENA ULC-WND/INJ N/A 05/11/2020 GASTRORRHAPHY, SUTURE OF PERFORATED, ULCER, WOUND, INJURY (WRVU 22.83) performed by Meme Torres MD at [facility] MAIN OR ??? PRO RESECT SMALL INTEST, SINGL RESEC/ANAS N/A 05/12/2020 @BOWEL RESECTION, SMALL INTESTINE SINGLE ANASTOMOSIS (WRVU 20.82) performed by Meme Torres MD at [facility] MAIN OR ??? PRO SUTURE ABD WALL-DEHIS/EVISCER Midline 05/20/2020 @SUTURE, SECONDARY, OF ABD WALL FOR EVISCERATION OR DEHISCENCE (WRVU 12.41) performed by Antonio Akbar MD at [facility] MAIN OR ? ? PRO UNLISTED PX ABD PRTM&OMENTUM N/A 05/20/2020 SUTURE OMENTUM (WRVU 11.1) performed by Antonio Akbar MD at [facility] MAIN OR ??? PRO UNLISTED PX ABDOMEN MUSCULOSKELETAL SYSTEM Midline 05/16/2020 WOUND CLOSURE, ABDOMINAL, PARTIAL W/ WOUND VAC (WRVU 6.39) performed by Nakul Vega MD at [facility] MAIN OR ??? PRO UPPER GI ENDOSCOPY, BIOPSY N/A 11/25/2020 EGD WITH BIOPSY (WRVU 2.49) performed by Kervin Rubio MD at [facility] ENDOSCOPY Social History: Patient lives in [place], [place] with her son and sjmugbsj-do-ekg and states her gdjtiedt-sh-ouo will be able to care for/assist her. Home Setup: ramped entrance, 2 story home with bedroom on the main floor. Walk- in shower. DME: crutches, wheelchair, prosthetic Baseline ADL/Mobility: independent with ADLs and assistance from family with IADLs. Precautions/Special Considerations: Full code. Risk for falls. Risk for delirium. FILAMENT CUTTER. Wound vac. Slightly hard of hearing. Limit bending, lifting and twisting. Lee catheter. Subjective: Oh, my damqpmdu-rp-[id number] already has everything taken care of. Objective: [...] andDischarge planning. Total Minutes, Occupational Therapy: 22 ([id number] (evaluation)) 2017 OT Evaluation Code Rationale: ?? [...] and measurable assessment of functional outcome. Pager: [phone] Charity Daniel OT 06/02/2022 Occupational Therapy Rehabilitation [...] COVID test: Lab Results Component Value Date [id number] Not Detected 06/01/2021 Present on Admission: ??? [...] (medicaid [place]) ; Prescription Coverage: Preferred Pharmacy: [id number] - [place], [place] - [address] [place] [address] [address] [facility] [address] Advance Care Planning: Attempt Cardiopulmonary Resuscitation - [...] - quad, wheelchair - manual [address] [place] [address] Social & Family Supports: All names listed below confirmed with patient as current and correct Extended Emergency Contact Information Primary Emergency Contact: Denise Moya Address: [address] [place] [address] [facility] Relation: Son/Lnjclgla-ed-kmv Secondary Emergency Contact: Twin Moya Address: [address] [address] [facility] Mobile Relation: Child Current Care Provided [...] via car when medically ready. Registered Nurse Dielectric Tester / Joint Yarner will continue to follow patient???s progress and remain available if situation changes for coordination of care, psychosocial support and/or discharge planning. Office of Care Management VICTOR M Grimes,library acquisitions technician Team Case Management Pager #[phone] * Op Note - Whit Nance MD - 06/01/2022 9:09 AM EDT [facility] Operative Note Patient Name: Eliza Moya : [id number] MR#: [id number] Case Date: 06/01/2022 Surgeon: Surgeon(s) and Role: [...] IMPLANTATION (N/A) Findings: Large incisional hernia with malagasy cheese hernia defects along entire midline incision. Hernia sac kept intact and bilateral transversus abdominus release completed. Bard soft [id number] mesh placed in the retrorectus space. Drain [...] without obstruction or gangrene Muscle-Skin Flap, Trunk ([id number]) 06/01/2022 7:54 AM EDT Incisional hernia, without obstruction or gangrene MODIFIER MESH,BARD SOFT MESH 06/01/2022 7:54 AM EDT Incisional hernia, without obstruction or gangrene Repair AA Hernia Initial > 10 Cm Reducible ([id number]) 06/01/2022 7:54 AM EDT Incisional hernia, without obstruction or gangrene IMPLANTABLE DEVICES SCAN 06/01/2022 12:00 AM EDT documented in this encounter Results * (ABNORMAL) Differential, Automated (06/05/2022 3:15 AM EDT) Neutrophil % 66.7 % [facility] Neutrophil Absolute 8.11(H) 1.70 - 6.10 x10(3)/mc L [facility] Lymph % 17.3 % [facility] Lymphocytes Abs 2.1 0.9 - 3.2 x10(3)/mc L [facility] Monocyte % 8.2 % [facility] H[facility] ITAL [facility] Monocyte Abs 1.0(H) 0.3 - 0.9 x10(3)/mc L [facility] Eos % 6.4 % [facility] Eosinophils Abs 0.8(H) 0.0 - 0.4 x10(3)/[facility] LABORATORY Basophil % 0.8 % [facility] HOSP ITAL [facility] Baso Absolute 0.1 0.0 - 0.1 x10(3)/[facility] LABORATORY Immature Gran % 0.60 % [facility] Comment: Immature granulocytes(IG's)percentage and absolute count will include metamyelocytes, myelocytes, and promyelocytes. Blood smears from CBCs yielding IG's will be scanned manually for concordance. If this scan disagrees with the automated IG or if promyelocytes are noted, a manual differential will be performed. Immature Gran Absolute 0.07(H) 0.00 - 0.04 x10(3)/[facility]ATORY Blood 06/05/2022 3:15 AM EDT 06/05/2022 3:37 AM EDT Narrative Resulting Agency Comment Spec In Lab Ramona Arvizu MD HEMATOLOGY ORDERABLE S [facility] [place] [address] * (ABNORMAL) Hemogram (06/05/2022 3:15 AM EDT) White Blood Cell 12.2(H) 4.0 - 9.5 x10(3)/[facility] LABORATORY Red Blood Cell 3.66(L) 4.00 - 5.21 x10(6)/[facility] Hemoglobin 9.8(L) 11.7 - 15.5 g/dL [facility] Hematocrit 30.9(L) 35.7 - 45.8 % [facility] Mean Cell Volume 84.4 82.6 - 94.4 fL [facility] Mean Cell Hemoglobin 26.8(L) 27.1 - 32.0 pg [facility] Mean Cell Hemoglobin Concentration 31.7 31.7 - 35.0 g/dL [facility] Platelet 482(H) 145 - 357 x10(3)/ L [facility] RDW Standard Deviation 48.5(H) 37.0 - 46.0 fL [facility] RDW coefficient of variation 15.8(H) 11.5 - 14.1 % [facility] Mean Platelet Volume 9.5 7.6 - 12.9 fL [facility] NRBC% auto 0.0 % [facility] NRBC Absolute 0.000 0.000 - 0.000 x10(3)/mc L [facility] Blood 06/05/2022 3:15 AM EDT 06/05/2022 3:37 AM EDT Narrative Resulting Agency Comment Spec In Lab Ramona Arvizu MD HEMATOLOGY ORDERABLE S Performing Organization Address [facility]/ZIP Co de Phone Number [facility] [place] [address] * Phosphorus (06/05/2022 3:15 AM EDT) Phosphorus 3.5 2.5 - 4.5 mg/dL [facility] Blood 06/05/2022 3:15 AM EDT 06/05/2022 3:37 AM EDT Narrative Resulting Agency Comment Spec In Lab Whit Nance MD CHEMISTRY ORDERABLES Performing Organization Address [facility] Co de Phone Number [facility] [place] [address] * Magnesium (06/05/2022 3:15 AM EDT) Magnesium 0.84 0.69 - 1.07 mmol/L [facility] Blood 06/05/2022 3:15 AM EDT 06/05/2022 3:37 AM EDT Narrative Resulting Agency Comment Spec In Lab Whit Nance MD CHEMISTRY ORDERABLES Performing Organization Address [facility] Co de Phone Number [facility] [place] [address] * (ABNORMAL) Basic Metabolic Panel (non-fasting) (06/05/2022 3:15 AM EDT) Glucose 130 65 - 199 mg/dL [facility] Comment:Diabetes: >=200 mg/d L plus symptoms Blood Urea Nitrogen 7(L) 8 - 18 mg/dL [facility] Creatinine 0.61(L) 0.70 - 1.20 mg/dL [facility] Sodium 138 135 - 145 mmol/L [facility] Potassium 3.9 3.5 - 5.0 mmol/L [facility] Comment: Please note: ??Patients with WBC >100,000 may have falsely elevated Potassium levels. ??For accurate Potassium quantification in these patients send serum separator tube (gold top) for subsequent determinations. ??Contact the Clinical Chemistry Laboratory if there are any questions. Chloride 105 98 - 107 mmol/L [facility] Carbon Dioxide 25 22 - 31 mmol/L [facility] Anion Gap 8 5 - 15 mmol/L [facility] Calcium 8.3(L) 8.5 - 10.5 mg/dL [facility] Est Glomerular Filtration Rate 103 >=60 mL/min/1. 73 m?? [facility] Comment: This patient's estimated GFR [...] In Lab Whit Nance MD CHEMISTRY ORDERABLES [facility] [place] [address] * (ABNORMAL) Differential, Automated (06/04/2022 9:20 AM EDT) Neutrophil % 75.0 % [facility] Neutrophil Absolute 9.79(H) 1.70 - 6.10 x10(3)/mc L [facility] Lymph % 13.9 % [facility] Lymphocytes Abs 1.8 0.9 - 3.2 x10(3)/mc L [facility] Monocyte % 6.5 % [facility] Monocyte Abs 0.8 0.3 - 0.9 x10(3)/mc L [facility] Eos % 3.4 % [facility] Eosinophils Abs 0.4 0.0 - 0.4 x10(3)/ L [facility] Basophil % 0.7 % [facility] Baso Absolute 0.1 0.0 - 0.1 x10(3)/mc L [facility] Immature Gran % 0.50 % [facility] Comment: Immature granulocytes(IG's)percentage and absolute count will include metamyelocytes, myelocytes, and promyelocytes. Blood smears from CBCs yielding IG's will be scanned manually for concordance. If this scan disagrees with the automated IG or if promyelocytes are noted, a manual differential will be performed. Immature Gran Absolute 0.06(H) 0.00 - 0.04 x10(3)/ L [facility] Blood 06/04/2022 9:20 AM EDT 06/04/2022 9:31 AM EDT Narrative Resulting Agency Comment Spec In Lab Steph BEJARANO HEMATOLOGY ORDERABL ES [facility] [place] [address] * (ABNORMAL) Hemogram (06/04/2022 9:20 AM EDT) White Blood Cell 13.0(H) 4.0 - 9.5 x10(3)/mc L [facility] Red Blood Cell 3.75(L) 4.00 - 5.21 x10(6)/mc L [facility] Hemoglobin 10.1(L) 11.7 - 15.5 g/dL [facility] Hematocrit 33.0(L) 35.7 - 45.8 % [facility] Mean Cell Volume 88.0 82.6 - 94.4 fL [facility] Mean Cell Hemoglobin 26.9(L) 27.1 - 32.0 pg [facility] Mean Cell Hemoglobin Concentration 30.6(L) 31.7 - 35.0 g/dL [facility] Platelet 410(H) 145 - 357 x10(3)/mc L [facility] RDW Standard Deviation 50.5(H) 37.0 - 46.0 fL [facility] RDW coefficient of variation 15.7(H) 11.5 - 14.1 % [facility] Mean Platelet Volume 9.4 7.6 - 12.9 fL [facility] NRBC% auto 0.0 % [facility] NRBC Absolute 0.000 0.000 - 0.000 x10(3)/mc L [facility] Blood 06/04/2022 9:20 AM EDT 06/04/2022 9:31 AM EDT Narrative Resulting Agency Comment Spec In Lab Steph BEJARANO HEMATOLOGY ORDERABL ES Performing Organization Address City/State/[facility] Co de Phone Number [facility] [place] [address] * XR Chest PA & Lateral (Generic) [...] who have questions please contact the health livestock caretaker that requested your imaging first. ? Electronically signed by: Desi Daniel MD, [facility] ([phone]), at 06/04/2022 9:15 AM Narrative 06/04/2022 9:15 [...] patients who have questions please contactthe health livestock caretaker that requested your imaging first. Electronically signed by: Desi Daniel MD, [facility]([phone]), at 06/04/2022 9:15 AM Whit Nance MD IMG DX ORDERABLES * (ABNORMAL) Differential, Automated (06/04/2022 3:34 AM EDT) Neutrophil % 72.3 % [facility] Neutrophil Absolute 9.31(H) 1.70 - 6.10 x10(3)/mc L [facility] Lymph % 14.3 % [facility] Lymphocytes Abs 1.8 0.9 - 3.2 x10(3)/mc L [facility] Monocyte % 9.5 % [facility] Monocyte Abs 1.2(H) 0.3 - 0.9 x10(3)/mc L [facility] Eos % 2.6 % [facility] Eosinophils Abs 0.3 0.0 - 0.4 x10(3)/mc L [facility] Basophil % 0.6 % [facility] HOS[facility] ITAL [facility] Baso Absolute 0.1 0.0 - 0.1 x10(3)/mc L [facility] Immature Gran % 0.70 % [facility] Comment: Immature granulocytes(IG's)percentage and absolute count will include metamyelocytes, myelocytes, and promyelocytes. Blood smears from CBCs yielding IG's will be scanned manually for concordance. If this scan disagrees with the automated IG or if promyelocytes are noted, a manual differential will be performed. Immature Gran Absolute 0.09(H) 0.00 - 0.04 x10(3)/ L [facility] Blood 06/04/2022 3:34 AM EDT 06/04/2022 3:56 AM EDT Narrative Resulting Agency Comment Spec In Lab Ramona Arvizu MD HEMATOLOGY ORDERABLE S Performing Organization Address City/State/[facility] Co de Phone Number [facility] [place] [address] * (ABNORMAL) Hemogram (06/04/2022 3:34 AM EDT) White Blood Cell 12.9(H) 4.0 - 9.5 x10(3)/ L [facility] Red Blood Cell 3.61(L) 4.00 - 5.21 x10(6)/ L [facility] Hemoglobin 9.7(L) 11.7 - 15.5 g/dL [facility] Hematocrit 30.4(L) 35.7 - 45.8 % [facility] Mean Cell Volume 84.2 82.6 - 94.4 fL [facility] Mean Cell Hemoglobin 26.9(L) 27.1 - 32.0 pg [facility] Mean Cell Hemoglobin Concentration 31.9 31.7 - 35.0 g/dL [facility] Platelet 361(H) 145 - 357 x10(3)/mc L [facility] RDW Standard Deviation 47.5(H) 37.0 - 46.0 fL [facility] RDW coefficient of variation 15.6(H) 11.5 - 14.1 % [facility] Mean Platelet Volume 9.3 7.6 - 12.9 fL [facility] NRBC% auto 0.0 % [facility] H[facility] ITAL [facility] NRBC Absolute 0.000 0.000 - 0.000 x10(3)/mc L [facility] Blood 06/04/2022 3:34 AM EDT 06/04/2022 3:56 AM EDT Narrative Resulting Agency Comment Spec In Lab Ramona Arvizu MD HEMATOLOGY ORDERABLE S [facility] [place] [address] * Phosphorus (06/04/2022 3:34 AM EDT) Phosphorus 2.5 2.5 - 4.5 mg/dL [facility] Blood 06/04/2022 3:34 AM EDT 06/04/2022 3:56 AM EDT Narrative Resulting Agency Comment Spec In Lab Whit Nance MD CHEMISTRY ORDERABLES Performing Organization Address [facility] Co de Phone Number [facility] [place] [address] * Magnesium (06/04/2022 3:34 AM EDT) Magnesium 0.91 0.69 - 1.07 mmol/L [facility] Blood 06/04/2022 3:34 AM EDT 06/04/2022 3:56 AM EDT Narrative Resulting Agency Comment Spec In Lab Whit Nance MD CHEMISTRY ORDERABLES Performing Organization Address [facility]/ZIP Co de Phone Number [facility] [place] [address] * (ABNORMAL) Basic Metabolic Panel (non-fasting) (06/04/2022 3:34 AM EDT) Glucose 180 65 - 199 mg/dL [facility] Comment:Diabetes: >=200 mg/d L plus symptoms Blood Urea Nitrogen 10 8 - 18 mg/dL [facility] Creatinine 0.57(L) 0.70 - 1.20 mg/dL [facility] Sodium 140 135 - 145 mmol/L [facility] Potassium 3.8 3.5 - 5.0 mmol/L [facility] Comment: Please note: ??Patients with WBC >100,000 may have falsely elevated Potassium levels. ??For accurate Potassium quantification in these patients send serum separator tube (gold top) for subsequent determinations. ??Contact the Clinical Chemistry Laboratory if there are any questions. Chloride 106 98 - 107 mmol/L [facility] Carbon Dioxide 27 22 - 31 mmol/L [facility] Anion Gap 7 5 - 15 mmol/L [facility] Calcium 7.8(L) 8.5 - 10.5 mg/dL [facility] Est Glomerular Filtration Rate 105 >=60 mL/min/1. 73 m?? [facility] Comment: This patient's estimated GFR [...] In Lab Whit Nance MD CHEMISTRY ORDERABLES [facility] [place] [address] * (ABNORMAL) Differential, Automated (06/03/2022 3:59 AM EDT) Neutrophil % 71.2 % [facility] Neutrophil Absolute 8.83(H) 1.70 - 6.10 x10(3)/mc L [facility] Lymph % 15.1 % [facility] Lymphocytes Abs 1.9 0.9 - 3.2 x10(3)/mc L [facility] Monocyte % 11.5 % [facility] Monocyte Abs 1.4(H) 0.3 - 0.9 x10(3)/ L [facility] Eos % 0.8 % [facility] Eosinophils Abs 0.1 0.0 - 0.4 x10(3)/[facility] LABORATORY Basophil % 0.8 % [facility] IT[facility] Baso Absolute 0.1 0.0 - 0.1 x10(3)/[facility] LABORATORY Immature Gran % 0.60 % [facility] Comment: Immature granulocytes(IG's)percentage and absolute count will include metamyelocytes, myelocytes, and promyelocytes. Blood smears from CBCs yielding IG's will be scanned manually for concordance. If this scan disagrees with the automated IG or if promyelocytes are noted, a manual differential will be performed. Immature Gran Absolute 0.07(H) 0.00 - 0.04 x10(3)/[facility]ORY Blood 06/03/2022 3:59 AM EDT 06/03/2022 4:06 AM EDT Narrative Resulting Agency Comment Spec In Lab Ramona Arvizu MD HEMATOLOGY ORDERABLE S [facility] [place] [address] * (ABNORMAL) Hemogram (06/03/2022 3:59 AM EDT) White Blood Cell 12.4(H) 4.0 - 9.5 x10(3)/ L [facility] Red Blood Cell 3.95(L) 4.00 - 5.21 x10(6)/ L [facility] Hemoglobin 10.6(L) 11.7 - 15.5 g/dL [facility] Hematocrit 33.7(L) 35.7 - 45.8 % [facility] Mean Cell Volume 85.3 82.6 - 94.4 fL [facility] Mean Cell Hemoglobin 26.8(L) 27.1 - 32.0 pg [facility] Mean Cell Hemoglobin Concentration 31.5(L) 31.7 - 35.0 g/dL [facility] Platelet 317 145 - 357 x10(3)/mc L [facility] RDW Standard Deviation 47.9(H) 37.0 - 46.0 fL [facility] RDW coefficient of variation 15.3(H) 11.5 - 14.1 % [facility] Mean Platelet Volume 9.1 7.6 - 12.9 fL [facility] NRBC% auto 0.0 % [facility] NRBC Absolute 0.000 0.000 - 0.000 x10(3)/mc L [facility] Blood 06/03/2022 3:59 AM EDT 06/03/2022 4:06 AM EDT Narrative Resulting Agency Comment Spec In Lab Ramona Arvizu MD HEMATOLOGY ORDERABLE S [facility] [place] [address] * Phosphorus (06/03/2022 3:59 AM EDT) Phosphorus 2.5 2.5 - 4.5 mg/dL [facility] Comment: Result changed from 1.9 to 2.5 due to analytical error per Dr. Mathis. Corrected from 1.9 mg/dL [LOW] on 06/08/22 14:19:10 EDT by Darrin Alicia Blood 06/03/2022 3:59 AM EDT 06/03/2022 4:06 AM EDT Narrative Resulting Agency Comment Spec In Lab Whit Nance MD CHEMISTRY ORDERABLES [facility] [place] [address] * Magnesium (06/03/2022 3:59 AM EDT) Magnesium 0.79 0.69 - 1.07 mmol/L [facility] Blood 06/03/2022 3:59 AM EDT 06/03/2022 4:06 AM EDT Narrative Resulting Agency Comment Spec In Lab Whit Nance MD CHEMISTRY ORDERABLES Performing Organization Address [facility]/ZIP Co de Phone Number [facility] [place] [address] * (ABNORMAL) Basic Metabolic Panel (non-fasting) (06/03/2022 3:59 AM EDT) Glucose 146 65 - 199 mg/dL [facility] Comment:Diabetes: >=200 mg/d L plus symptoms Blood Urea Nitrogen 8 8 - 18 mg/dL [facility] Creatinine 0.66(L) 0.70 - 1.20 mg/dL [facility] Sodium 138 135 - 145 mmol/L [facility] Potassium 3.7 3.5 - 5.0 mmol/L [facility] Comment: Please note: ??Patients with WBC >100,000 may have falsely elevated Potassium levels. ??For accurate Potassium quantification in these patients send serum separator tube (gold top) for subsequent determinations. ??Contact the Clinical Chemistry Laboratory if there are any questions. Chloride 104 98 - 107 mmol/L [facility] Carbon Dioxide 25 22 - 31 mmol/L [facility] Anion Gap 9 5 - 15 mmol/L [facility] Calcium 7.9(L) 8.5 - 10.5 mg/dL [facility] Est Glomerular Filtration Rate 101 >=60 mL/min/1. 73 m?? [facility] Comment: This patient's estimated GFR [...] Nance MD CHEMISTRY ORDERABLES Performing Organization Address City/[facility]/[place] [address] * (ABNORMAL) Differential, Automated (06/02/2022 9:38 AM EDT) Neutrophil % 67.3 % [facility] Neutrophil Absolute 8.65(H) 1.70 - 6.10 x10(3)/ L [facility] Lymph % 18.7 % [facility] Lymphocytes Abs 2.4 0.9 - 3.2 x10(3)/ L [facility] Monocyte % 12.3 % [facility] Monocyte Abs 1.6(H) 0.3 - 0.9 x10(3)/[facility] Eos % 0.5 % [facility] Eosinophils Abs 0.1 0.0 - 0.4 x10(3)/[facility] Basophil % 0.7 % [facility] Baso Absolute 0.1 0.0 - 0.1 x10(3)/[facility] Immature Gran % 0.50 % [facility] Comment: Immature granulocytes(IG's)percentage and absolute count will include metamyelocytes, myelocytes, and promyelocytes. Blood smears from CBCs yielding IG's will be scanned manually for concordance. If this scan disagrees with the automated IG or if promyelocytes are noted, a manual differential will be performed. Immature Gran Absolute 0.07(H) 0.00 - 0.04 x10(3)/ L [facility] Blood 06/02/2022 9:38 AM EDT 06/02/2022 10:01 AM EDT Narrative Resulting Agency Comment Spec In Lab [facility] [place] [address] * (ABNORMAL) Hemogram (06/02/2022 9:38 AM EDT) White Blood Cell 12.8(H) 4.0 - 9.5 x10(3)/ L [facility] Red Blood Cell 4.07 4.00 - 5.21 x10(6)/mc L [facility] Hemoglobin 10.9(L) 11.7 - 15.5 g/dL [facility] Hematocrit 34.1(L) 35.7 - 45.8 % [facility] Mean Cell Volume 83.8 82.6 - 94.4 fL [facility] Mean Cell Hemoglobin 26.8(L) 27.1 - 32.0 pg [facility] Mean Cell Hemoglobin Concentration 32.0 31.7 - 35.0 g/dL [facility] Platelet 400(H) 145 - 357 x10(3)/mc L [facility] RDW Standard Deviation 46.0 37.0 - 46.0 fL [facility] RDW coefficient of variation 15.2(H) 11.5 - 14.1 % [facility] Mean Platelet Volume 9.2 7.6 - 12.9 fL [facility] NRBC% auto 0.0 % [facility] NRBC Absolute 0.000 0.000 - 0.000 x10(3)/mc L [facility] Blood 06/02/2022 9:38 AM EDT 06/02/2022 10:01 AM EDT Narrative Resulting Agency Comment Spec In Lab Steph BEJARANO HEMATOLOGY ORDERABL ES [facility] [place] [address] * (ABNORMAL) Basic Metabolic Panel (non-fasting) (06/02/2022 9:38 AM EDT) Glucose 122 65 - 199 mg/dL [facility] Comment:Diabetes: >=200 mg/d L plus symptoms Blood Urea Nitrogen 12 8 - 18 mg/dL [facility] Creatinine 0.64(L) 0.70 - 1.20 mg/dL [facility] Sodium 135 135 - 145 mmol/L [facility] Potassium 3.7 3.5 - 5.0 mmol/L [facility] Comment: Please note: ??Patients with WBC >100,000 may have falsely elevated Potassium levels. ??For accurate Potassium quantification in these patients send serum separator tube (gold top) for subsequent determinations. ??Contact the Clinical Chemistry Laboratory if there are any questions. Chloride 101 98 - 107 mmol/L [facility] Carbon Dioxide 25 22 - 31 mmol/L [facility] Anion Gap 9 5 - 15 mmol/L [facility] Calcium 7.5(L) 8.5 - 10.5 mg/dL [facility] Est Glomerular Filtration Rate 102 >=60 mL/min/1. 73 m?? [facility] Comment: This patient's estimated GFR [...] In Lab Whit Nance MD CHEMISTRY ORDERABLES [facility] [place] [address] * Scan, Peripheral Blood (06/02/2022 3:47 AM EDT) Plat estimate Increased [facility] RBC Morphology Abnormal [facility] Winger Cells 1-5 /HPF [facility] Blood 06/02/2022 3:47 AM EDT 06/02/2022 4:32 AM EDT Narrative Resulting Agency Comment Spec In Lab Ramona Arvizu MD HEMATOLOGY ORDERABLE S Performing Organization Address City/[facility]/ZIP Co de Phone Number [facility] [place] [address] * (ABNORMAL) Differential, Automated (06/02/2022 3:47 AM EDT) Neutrophil % 72.9 % [facility] Neutrophil Absolute 10.33(H) 1.70 - 6.10 x10(3)/mc L [facility] Lymph % 14.1 % [facility] Lymphocytes Abs 2.0 0.9 - 3.2 x10(3)/ L [facility] Monocyte % 12.0 % [facility] Monocyte Abs 1.7(H) 0.3 - 0.9 x10(3)/ L [facility] Eos % 0.1 % [facility] Eosinophils Abs 0.0 0.0 - 0.4 x10(3)/[facility] Basophil % 0.5 % [facility] Baso Absolute 0.1 0.0 - 0.1 x10(3)/ L [facility] Immature Gran % 0.40 % [facility] Comment: Immature granulocytes(IG's)percentage and absolute count will include metamyelocytes, myelocytes, and promyelocytes. Blood smears from CBCs yielding IG's will be scanned manually for concordance. If this scan disagrees with the automated IG or if promyelocytes are noted, a manual differential will be performed. Immature Gran Absolute 0.06(H) 0.00 - 0.04 x10(3)/ L [facility] Blood 06/02/2022 3:47 AM EDT 06/02/2022 4:32 AM EDT Narrative Resulting Agency Comment Spec In Lab Ramona Arvizu MD HEMATOLOGY ORDERABLE S Performing Organization Address City/State/[facility] Co de Phone Number [facility] [place] [address] * (ABNORMAL) Hemogram (06/02/2022 3:47 AM EDT) White Blood Cell 14.2(H) 4.0 - 9.5 x10(3)/ L [facility] Red Blood Cell 4.08 4.00 - 5.21 x10(6)/mc L [facility] Hemoglobin 10.9(L) 11.7 - 15.5 g/dL [facility] Hematocrit 34.4(L) 35.7 - 45.8 % [facility] Mean Cell Volume 84.3 82.6 - 94.4 fL [facility] Mean Cell Hemoglobin 26.7(L) 27.1 - 32.0 pg [facility] Mean Cell Hemoglobin Concentration 31.7 31.7 - 35.0 g/dL [facility] Platelet 424(H) 145 - 357 x10(3)/mc L [facility] RDW Standard Deviation 46.5(H) 37.0 - 46.0 fL [facility] RDW coefficient of variation 15.1(H) 11.5 - 14.1 % [facility] Mean Platelet Volume 9.7 7.6 - 12.9 fL [facility] NRBC% auto 0.0 % [facility] NRBC Absolute 0.000 0.000 - 0.000 x10(3)/mc L [facility] Blood 06/02/2022 3:47 AM EDT 06/02/2022 4:32 AM EDT Narrative Resulting Agency Comment Spec In Lab Ramona Arvizu MD HEMATOLOGY ORDERABLE S Performing Organization Address City/[facility]/ZIP Co de Phone Number [facility] [place] [address] * Phosphorus (06/02/2022 3:47 AM EDT) Phosphorus 3.1 2.5 - 4.5 mg/dL [facility] Blood 06/02/2022 3:47 AM EDT 06/02/2022 4:31 AM EDT Narrative Resulting Agency Comment Spec In Lab Whit Nance MD CHEMISTRY ORDERABLES Performing Organization Address [facility]/ZIP Co de Phone Number [facility] [place] [address] * Magnesium (06/02/2022 3:47 AM EDT) Magnesium 0.76 0.69 - 1.07 mmol/L [facility] Blood 06/02/2022 3:47 AM EDT 06/02/2022 4:31 AM EDT Narrative Resulting Agency Comment Spec In Lab Whit Nance MD CHEMISTRY ORDERABLES Performing Organization Address [facility]/ZIP Co de Phone Number [facility] [place] [address] * (ABNORMAL) Basic Metabolic Panel (non-fasting) (06/02/2022 3:47 AM EDT) Glucose 142 65 - 199 mg/dL [facility] Comment:Diabetes: >=200 mg/d L plus symptoms Blood Urea Nitrogen 15 8 - 18 mg/dL [facility] Creatinine 0.61(L) 0.70 - 1.20 mg/dL [facility] Sodium 135 135 - 145 mmol/L [facility] Potassium 4.1 3.5 - 5.0 mmol/L [facility] Comment: Please note: ??Patients with WBC >100,000 may have falsely elevated Potassium levels. ??For accurate Potassium quantification in these patients send serum separator tube (gold top) for subsequent determinations. ??Contact the Clinical Chemistry Laboratory if there are any questions. Chloride 101 98 - 107 mmol/L [facility] Carbon Dioxide 24 22 - 31 mmol/L [facility] Anion Gap 10 5 - 15 mmol/L [facility] Calcium 7.6(L) 8.5 - 10.5 mg/dL [facility] Est Glomerular Filtration Rate 103 >=60 mL/min/1. 73 m?? [facility] Comment: This patient's estimated GFR [...] Nance MD CHEMISTRY ORDERABLES Performing Organization Address City/[facility]/[place] [address] * (ABNORMAL) Differential, Automated (06/01/2022 3:38 PM EDT) Neutrophil % 88.7 % [facility] Neutrophil Absolute 17.07(H) 1.70 - 6.10 x10(3)/mc L [facility] Lymph % 4.7 % [facility] Lymphocytes Abs 0.9 0.9 - 3.2 x10(3)/ L [facility] Monocyte % 5.7 % [facility] Monocyte Abs 1.1(H) 0.3 - 0.9 x10(3)/[facility] Eos % 0.1 % [facility] Eosinophils Abs 0.0 0.0 - 0.4 x10(3)/[facility] Basophil % 0.3 % [facility] Baso Absolute 0.1 0.0 - 0.1 x10(3)/[facility] Immature Gran % 0.50 % [facility] Comment: Immature granulocytes(IG's)percentage and absolute count will include metamyelocytes, myelocytes, and promyelocytes. Blood smears from CBCs yielding IG's will be scanned manually for concordance. If this scan disagrees with the automated IG or if promyelocytes are noted, a manual differential will be performed. Immature Gran Absolute 0.10(H) 0.00 - 0.04 x10(3)/ L [facility] Blood 06/01/2022 3:38 PM EDT 06/01/2022 3:51 PM EDT Narrative Resulting Agency Comment Spec In Lab Ramona Arvizu MD [place] [address] * (ABNORMAL) Hemogram (06/01/2022 3:38 PM EDT) White Blood Cell 19.2(H) 4.0 - 9.5 x10(3)/ L [facility] Red Blood Cell 4.95 4.00 - 5.21 x10(6)/mc L [facility] Hemoglobin 13.3 11.7 - 15.5 g/dL [facility] Hematocrit 41.9 35.7 - 45.8 % [facility] Mean Cell Volume 84.6 82.6 - 94.4 fL [facility] Mean Cell Hemoglobin 26.9(L) 27.1 - 32.0 pg [facility] Mean Cell Hemoglobin Concentration 31.7 31.7 - 35.0 g/dL [facility] Platelet 430(H) 145 - 357 x10(3)/mc L [facility] RDW Standard Deviation 46.7(H) 37.0 - 46.0 fL [facility] RDW coefficient of variation 15.1(H) 11.5 - 14.1 % [facility] Mean Platelet Volume 9.5 7.6 - 12.9 fL [facility] NRBC% auto 0.0 % [facility] NRBC Absolute 0.000 0.000 - 0.000 x10(3)/mc L [facility] Blood 06/01/2022 3:38 PM EDT 06/01/2022 3:51 PM EDT Narrative Resulting Agency Comment Spec In Lab Ramona Arvizu MD HEMATOLOGY ORDERABLE S [facility] [place] [address] * Phosphorus (06/01/2022 3:38 PM EDT) Phosphorus 3.4 2.5 - 4.5 mg/dL [facility] Blood 06/01/2022 3:38 PM EDT 06/01/2022 3:51 PM EDT Narrative Resulting Agency Comment Spec In Lab Whit Nance MD CHEMISTRY ORDERABLES [facility] [place] [address] * Magnesium (06/01/2022 3:38 PM EDT) Magnesium 0.86 0.69 - 1.07 mmol/L [facility] Blood 06/01/2022 3:38 PM EDT 06/01/2022 3:51 PM EDT Narrative Resulting Agency Comment Spec In Lab Whit Nance MD CHEMISTRY ORDERABLES [facility] [place] [address] * (ABNORMAL) Basic Metabolic Panel (non-fasting) (06/01/2022 3:38 PM EDT) Pathologist [facility] Glucose 150 65 - 199 mg/dL [facility] Comment:Diabetes: >=200 mg/d L plus symptoms Blood Urea Nitrogen 16 8 - 18 mg/dL [facility] Creatinine 0.73 0.70 - 1.20 mg/dL [facility] Sodium 141 135 - 145 mmol/L [facility] Potassium 4.9 3.5 - 5.0 mmol/L [facility] Comment: Please note: ??Patients with WBC >100,000 may have falsely elevated Potassium levels. ??For accurate Potassium quantification in these patients send serum separator tube (gold top) for subsequent determinations. ??Contact the Clinical Chemistry Laboratory if there are any questions. Chloride 106 98 - 107 mmol/L [facility] Carbon Dioxide 23 22 - 31 mmol/L [facility] Anion Gap 12 5 - 15 mmol/L [facility] Calcium 8.0(L) 8.5 - 10.5 mg/dL [facility] Est Glomerular Filtration Rate 95 >=60 mL/min/1. 73 m?? [facility] Comment: This patient's estimated GFR [...] In Lab Whit Nance MD CHEMISTRY ORDERABLES [facility] [address] [place] [address] * (ABNORMAL) BLOOD GAS 2 VENOUS (06/01/2022 9:19 AM EDT) pH, Venous 7.38 7.32 - 7.42 [facility] PCO2, Venous 47 41 - 51 mmHg [facility] PO2, Venous 63(H) 25 - 40 mmHg [facility] Bicarbonate, Venous 27.5 mmol/L [facility] Base Excess, Venous 2.0 mmol/L [facility] Hgb Blood Gas 12.7 11.7 - 15.5 g/dL [facility] Oxyhemoglobin, Venous 90.8 % [facility] Carboxyhemoglob in, Venous 1.4 % [facility] Comment: Nonsmokers: 0.5-1.5% COHB Smokers: Variable, but usually less than 10% Toxic: 20-30% COHB Lethal: Greater than 60% COHB Methemoglobin, Venous 0.3 <=1.5 % [facility] Na Whole Blood 139 135 - 145 mmol/L [facility] K Whole Blood 3.9 3.5 - 5.0 mmol/L [facility] Comment: Please note: Patients with WBC >100,000 may have falsely elevated Potassium levels. Contact the Clinical Chemistry Laboratory if there are any questions. ICa Whole Blood 1.14(L) 1.15 - 1.33 mmol/L [facility] Comment: Note: ??Total bilirubin higher than 20 mg/dL may lead to falsely low ionized calcium. CL Whole Blood 105 98 - 107 mmol/L [facility] Gluc Whole Bld 120 65 - 199 mg/dL [facility] Comment:Diabetes: >=200 mg/d L plus symptoms Lactate WB 1.7 0.5 - 2.2 mmol/L [facility] Flow, Royal 0.4 LPM [facility] Blood Gas Source Venous [facility] Temperature, Venous 35.7 Celsius [facility] Blood 06/01/2022 9:19 AM EDT 06/01/2022 9:19 AM EDT Whit Nance MD POINT OF CARE TEST O RDERABLES [facility] [place] [address] * XR Fluoro No Rad <1Hr - [...] Chronic obstructive pulmonary disease, unspecified COPD type documented in this encounter Admitting Diagnoses Diagnosis Ventral hernia Ventral hernia, unspecified, without mention of obstruction or gangrene documented in this encounter Administered Medications Inactive Administered Medications - up to 3 most recent administrations Medication Order MAR Action Action Date Dose Rate Site acetaminophen (Ofirmev) (1,000 mg/100 mL) infusion 1,000 mg 1,000 mg, Intravenous, at 400 mL/hr, Administer over 15 Minutes, EVERY 8 HOURS SCHEDULED, 3 doses, First dose on 06/01/22 at 1545, Last dose on Wed06/02/22 at 0600, Maximum dose of acetaminophen is 4,000 mg from all sources in 24 hours. When ordered for pain, acetaminophen should be given even when other ordered pain medications are indicated. , Routine, Is ketorolac (Toradol) IV contraindicated? Yes, Can this patient tolerate oral medications or suppositories? No Given 06/01/2022 3:56 PM EDT 1,000 mg 400 mL/hr acetaminophen (Tylenol) tablet 1,000 mg 1,000 mg, Oral, ONCE, 1 dose, On Wed06/01/22 at 0645, Administer with SIP of H2O only. Maximum dose of acetaminophen is 4,000 mg from all sources in 24 hours., Day of Surgery (Day of Procedure), Routine Given 06/01/2022 6:45 AM EDT 1,000 mg acetaminophen (Tylenol) tablet 975 mg 975 mg, Oral, EVERY 8 HOURS, First dose on Wed06/02/22 at 0000, Until Discontinued, Maximum dose of acetaminophen is 4,000 mg from all sources in 24 hours. When ordered for pain, acetaminophen should be given even when other ordered pain medications are indicated. , Routine Given 06/03/2022 8:23 AM EDT 975 mg Given 06/02/2022 4:07 PM EDT 975 mg Given 06/02/2022 9:05 AM EDT 975 mg acetaminophen (Tylenol) tablet 975 [...] 4 HOURS PRN, Starting on Wed06/01/22 at 1939, Until Wed06/03/22 at 1212, Wheezing, Shortness of Breath, Routine Given 06/02/2022 1:01 AM EDT 2.5 mg albuteroL (Proventil, Ventolin) (2.5 mg/3 mL) [...] Approved indication of non-valvular atrial fibrillation Given 06/03/2022 8:31 PM EDT 5 mg apixaban (Eliquis) tablet 5 mg 5 mg, Oral, 2 TIMES DAILY, First dose on Wed06/04/22 at 1145, Until Discontinued, Anticoagulant, Routine, Restricted anticoagulant, choose the most appropriate response: Approved indication of non-valvular atrial fibrillation Given 06/05/2022 8:08 AM EDT 5 mg Given 06/04/2022 9:39 PM EDT 5 mg Given 06/04/2022 12:11 PM EDT 5 mg aspirin chewable tablet 81 mg 81 mg, Oral, DAILY, First dose on Wed06/02/22 at 0900, Until Discontinued, Routine Given 06/04/2022 9:30 AM EDT 81 mg Given 06/03/2022 2:08 PM EDT 81 mg Given 06/02/2022 9:42 AM EDT 81 mg atorvastatin (Lipitor) tablet 80 mg 80 [...] Given 06/04/2022 9:36 AM EDT 2 .Inhalation BUpivacaine (pf) 0.1 % in sodium chloride 0.9% 250 mL epidural (mixture) Epidural, Epidural Type: Continuous + PCEA, Continuous Rate: 6 mL/hr, PCEA Dose: 3 mL, PCEA Frequency: [...] a programmed frequency , Recovery (Recovery-Hospital Unit) New Bag 06/02/2022 10:38 AM E DT BUpivacaine (pf) 0.1 % in sodium chloride 0.9% 250 mL epidural (mixture) Epidural, Epidural Type: Continuous + PCEA, Continuous [...] a programmed frequency , Recovery (Recovery-Hospital Unit) New Bag 06/03/2022 10:51 AM E DT Rate/Dose Change 06/03/2022 8:31 AM EDT BUpivacaine (pf) 0.1 % in sodium chloride 0.9% 250 mL epidural (mixture) Epidural, Epidural Type: PCEA Only, PCEA Dose: [...] a programmed frequency , Recovery (Recovery-Hospital Unit) Rate/Dose Change 06/03/2022 12:34 PM EDT calcium carbonate (TUMS) chewable tablet 1,000 mg 1,000 mg, Oral, 2 TIMES DAILY, First dose on Wed06/02/22 at 0900, Until Discontinued, Routine Given 06/02/2022 9:09 PM EDT 1,000 mg Given 06/02/2022 9:03 AM EDT 1,000 mg calcium carbonate (TUMS) chewable tablet 1,000 mg [...] Given 06/04/2022 9:33 AM EDT 100 mg enoxaparin (Lovenox) (40 mg/0.4 mL) subcutaneous injection 40 mg 40 mg, Subcutaneous, ONCE, 1 dose, On Wed06/02/22 at 1200, Routine Given 06/02/2022 11:58 AM EDT 40 mg fentaNYL (PF) (50 mcg/mL) injection 25-50 mcg 25-50 mcg, Intravenous, EVERY 5 MIN PRN, Starting on Wed06/01/22 at 0608, Until Wed06/01/22 at 0745, Pain, For Epidural/Block sedation. Titrate to RASS -2, Routine Given 06/01/2022 7:35 AM EDT 50 mcg fexofenadine (Tricia) tablet 60 mg 60 mg, Oral, 2 TIMES DAILY, First dose on Wed06/02/22 at 0900, Until Discontinued Given 06/03/2022 8:23 AM EDT 60 m g Given 06/02/2022 9:09 PM EDT 60 mg Given 06/02/2022 9:44 AM EDT 60 mg furosemide (Lasix) tablet 20 mg 20 [...] Given 06/04/2022 9:32 AM EDT 300 mg heparin (porcine) (5,000 units/1 mL) subcutaneous injection 5,000 Units 5,000 Units, Subcutaneous, PRETZEL TWISTER TO O.R., 1 dose, On Wed06/01/22 at 0745, Routine Given 06/01/2022 7:46 AM EDT 5,000 Units HYDROmorphone (Dilaudid) (2 mg/mL) injection solution 0.2 mg 0.2 mg, Epidural, ONCE, 1 dose, On Wed06/01/22 at 0630, Routine Given 06/01/2022 7:47 AM EDT 0.2 mg HYDROmorphone (pf) (10 mcg/mL), BUpivacaine (pf) 0.1% in sodium chloride 0.9% 250 mL epidural Epidural, Epidural Type: Continuous + PCEA, Continuous Rate: 6 mL/hr, PCEA Dose: 3 mL, PCEA Frequency: [...] a programmed frequency , Recovery (Recovery-Hospital Unit) New Bag 06/02/2022 6:08 AM EDT 250 mLs 6 mL/h r Continued Bag 06/01/2022 2:52 PM EDT 250 mLs hydrOXYzine (Atarax) tablet 10 mg 10 mg, [...] Given 06/04/2022 6:02 AM EDT 3 mLs ketorolac (Toradol) (30 mg/mL) injection 15 mg 15 mg, Intravenous, EVERY 8 HOURS, First dose on Wed06/03/22 at 1645, Until Discontinued, Routine Given 06/03/2022 4:35 PM EDT 15 mg lactated Ringers 500 mL IV bolus at 250 mL/hr, Intravenous, ONCE, 1 dose, On Suzi 06/04/22 at 0315 New Bag 06/04/2022 3:38 AM EDT 250 mL/hr lactated ringers infusion 50 mL/hr, Intravenous, CONTINUOUS, Starting on Wed06/01/22 at 1545, Until Wed06/02/22 at 0917, Recovery (Recovery-Hospital Unit) New Bag 06/01/2022 3:57 PM EDT 50 mL/hr 50 mL/ hr levothyroxine (Synthroid) tablet 50 mcg 50 mcg, [...] AM EDT 1 patch 13- Abdomen (Left) magnesium sulfate 2 g in sterile water 50 mL infusion 2 g, Intravenous, ONCE, 1 dose, On Wed06/03/22 at 0715, Administer over 120 Minutes New Bag 06/03/2022 6:43 AM EDT 2 g 25 mL/hr melatonin tablet 9 mg 9 mg, Oral, [...] Given 06/04/2022 9:39 PM EDT 750 mg midazolam (pf) (Versed) (1 mg/mL) injection 0.5-2 mg 0.5-2 mg, Intravenous, EVERY 1 MIN PRN, Starting on Wed06/01/22 at 0608, Until Wed06/01/22 at 0745, Other, Anxiety, For epidural/nerve block/blood patch procedures only., Titrate to RASS -2, Routine Given 06/01/2022 7:35 AM EDT 1 mg oxyCODONE (Roxicodone) tablet 5 mg 5 mg, Oral, ONCE, 1 dose, On Wed06/03/22 at 0830, Routine Given 06/03/2022 9:03 AM EDT 5 mg oxyCODONE (Roxicodone) tablet 5-10 mg 5-10 [...] Given 06/03/2022 3:56 PM EDT 17 g potassium phosphate 15 mMol in sodium chloride 0.9% 250 mL infusion 15 mmol, Intravenous, EVERY 4 HOURS, 2 doses, First dose on Wed06/03/22 at 0715, Last dose on Wed06/03/22 at 1115, Administer over 4 Hours, Administer over 4-6 hours New Bag 06/03/2022 11:28 AM EDT 15 mmol 62.5 mL/hr New Bag 06/03/2022 6:57 AM EDT 15 mmol 62.5 mL/hr sodium chloride 0.9 % (flush) (BD PosiFlush [...] LPN)2030 (Given - Provider: Tess Lozano RN) 0338 (Given - Provider: Tess Lzoano RN)0932 (Given - Provider: Linda Jacob LPN)1552 [...] Jackson LPN)1635 (Given - Provider: Raghavendra Jackson LPN)2030 (Given - Provider: Tess Lozano RN) 0933 (Given - Provider: Linda Jacob LPN)1353 (Given - Provider: Linda Jacob LPN)1731 (Given - Provider: Linda Jacob LPN)213 (Given [...] response: Approved indication of non-valvular atrial fibrillation 121 (Given - Provider: Linda Jacob LPN)213 (Given [...] Jackson LPN)1407 (Given - Provider: Raghavendra Jackson LPN)2031 (Given - Provider: Tess Lozano RN) 0930 [...] Routine 0818 (Given - Provider: Raghavendra Jackson LPN)203 (Given - Provider: Tess Lozano RN) 0936 (Given - Provider: Linda Jacob LPN)2140 (Given - Provider: Tess Lozano RN) 0808 (Given - Provider: Patricia Mtz LPN) calcium carbonate (TUMS) chewable tablet 1,000 mg 1,000 mg, Oral, 2 TIMES DAILY, First dose on Wed06/04/22 at 0900, Until Discontinued, For low calcium, not reflux/heartburn, Routine 930 (Given - Provider: Linda Jacob LPN)2138 (Given - Provider: Tess Lozano RN) 08 (Given - Provider: Patricia Mtz LPN) clopidogreL (Plavix) tablet 75 mg 75 mg, Oral, DAILY, First dose on Wed06/05/22 at 0900, Until Discontinued, Routine 08 (Given - Provider: Patricia Mtz LPN) docusate sodium (Colace) capsule 100 mg 100 mg, Oral, 2 TIMES DAILY, First dose on Wed06/01/22 at 2100, Until Discontinued, Routine 08 (Given - Provider: Raghavendra Jackson LPN)2030 (Given - Provider: Tess Lozano RN) 09 (Given - Provider: Linda Jacob LPN)2137 (Given - Provider: Tess Lozano RN) 08 (Given - Provider: Patricia Mtz LPN) fexofenadine (Tricia) tablet 60 mg (CANCELED) 60 mg, Oral, 2 TIMES DAILY, First dose on Wed06/02/22 at 0900, Until Discontinued 822 (Given - Provider: Raghavendra Jackson LPN) furosemide (Lasix) tablet 20 mg 20 mg, Oral, DAILY, First dose on Wed06/02/22 at 0900, Until Discontinued, Hold if SBP<100, Routine 08 (Given - Provider: Raghavendra Jackson LPN) 09 (Given - Provider: Linda Jacob LPN) 08 (Given - Provider: Patricia Mtz LPN) gabapentin (Neurontin) capsule 300 mg 300 mg, Oral, 2 TIMES DAILY, First dose (after last modification) on Wed06/01/22 at 2215, Until Discontinued, Routine 0823 (Given - Provider: Raghavendra Jackson LPN)2030 (Given - Provider: Tess Lozano RN) 0932 (Given - Provider: Linda Jacob LPN)2138 (Given - Provider: Tess Lozano RN) 0809 [...] 250 mL/hr, Intravenous, ONCE, 1 dose, On Wed06/04/22 at 0315 0338 (New Bag - Provider: [...] Routine 0822 (Given - Provider: Raghavendra Jackson LPN)1406 (Given - Provider: Raghavendra Jackson LPN)203 (Given - Provider: Tess Lozano RN) 0932 [...] De Oca RN)1057 (Stopped - Provider: Nadia Ortez, FRANKIE)1128 (New Bag - Provider: Nadia Ortez RN)1528 [...] infusing)2031 (Given - Provider: Tess Lozano RN) 09 (Given - Provider: Linda Jacob LPN)2138 (Given - Provider: Tess Lozano RN) 0817 (Given - Provider: Patricia Mtz LPN) tiotropium bromide (Spiriva Respimat) 2.5 mcg/actuation inhaler 2 puff 2 puff, Inhalation, DAILY, First dose on Wed06/02/22 at 0945, Until Discontinued, Must be primed prior to first administration, Routine 08 (Given - Provider: Raghavendra Jackson LPN) 0936 [...] Unit) 1234 (Rate/Dose Change - Provider: Nadia Ortez, FRANKIE)1326 (Stopped - Provider: Melida Lozoya RN) PRN Medication Order 06/03/2022 06/04/2022 06/05/2022 hydrOXYzine (Atarax) tablet 10 mg 10 mg, Oral, 4 TIMES DAILY PRN, Starting on Tu06/02/22 at 1147, Until Wed06/05/22 at 1748, Itching, Routine 0338 (Given - Provider: Tess Lozano RN) ipratropium-albuteroL (Duoneb) 0.5 mg-3 mg(2.5 mg base)/3 [...] Unit) documented in this encounter Care Teams Platform Material Handling Supervisor Relationship Specialty Start Date End Date Nya Hernandez, SUPERVISOR TESTING [address] [place] [address] PCP - General Family Medicine 05/07/21 documented as of this encounter
--- OUTSIDE RECORDS SUMMARY | 2023-12-28 16:19 | XMS_ITS | Encounter Summary ---
[place] [address] Care Team Providers Care Budget Controller Name Role Phone Nya Hernandez APRN Primary Care Provider +1- [phone] Encounter Details Date Type Department Care Team (Late st Contact Info) Description 06/02/2022 11:59 PM EDT Anesthesia Event Surgical Unit Level 3 [place] [address] Rebekah Rouse RN Anesthesia Record Procedure Summary Procedure Name Responsible Anesthesiologist Anesthesia Start Time Anesthesia Stop Time Acute Pain Medicine Service (consult) Events No events on file. Meds * Agents No agents on file. * Blood No blood administrations on file. Lines, Drains, and Airways No LDAs on file. documented in this encounter Social History Tobacco [...] on filedocumented in this encounter Care Teams Budget Controller Relationship Specialty Start Date End Date Nya Hernandez APRN [address] [place] [id number] PCP - General Family Medicine 05/07/21 documented as of this encounter
--- OUTSIDE RECORDS SUMMARY | 2023-12-28 16:19 | XMS_ITS | Encounter Summary ---
Author Organization [facility] [place] [address] Care Team Providers Care Solar Electric Installer Name Role Phone Nya Hernandez APRN Primary Care Provider +1- [phone] Encounter Details Date Type Department Care Team (Latest Contact Info) Description 06/15/2022 Travel Social History Tobacco Use Types Packs/Day [...] on filedocumented in this encounter Care Teams Solar Electric Installer Relationship Specialty Start Date End Date Nya Hernandez APRN [address] [place] [address] PCP - General Family Medicine 05/07/21 documented as of this encounter
--- OUTSIDE RECORDS SUMMARY | 2023-12-28 16:20 | XMS_ITS | Encounter Summary ---
Author Organization [facility] [place] [address] Care Team Providers Care Relocation Director Name Role Phone Nya Hernandez APRN Primary Care Provider +1- [phone] Encounter Details Date Type Department Care Team (Late st Contact Info) Description 02/06/2022 9:00 AM EST TH Visit (TeleHealth) [place] [address] Social History Tobacco Use Types Packs/Day Years [...] on filedocumented in this encounter Care Teams Relocation Director Relationship Specialty Start Date End Date Nya Hernandez APRN [address] [place] [address] PCP - General Family Medicine 05/07/21 documented as of this encounter
--- OUTSIDE RECORDS SUMMARY | 2023-12-28 16:20 | XMS_ITS | Encounter Summary ---
Author Organization [facility] [place] [address] Care Team Providers Care Founder Ceo & President Name Role Phone Nya Hernandez APRN Primary Care Provider +1- [phone] Encounter Details Date Type Department Care Team (Late st Contact Info) Description 03/17/2022 2:45 PM EST Ancillary Procedure Radiology Library at [facility] [place] [id number] Nya Hernandez APRN [address] [place] [id number] Social History Tobacco Use Types Packs/Day Years [...] STORAGE ONLY CT ABDOMEN AND PELVIS Routine 03/17/2022 2:40 PM EST documented in this encounter Results * Film Library- Storage Only CT Abdomen & Pelvis (03/17/2022 2:40 PM EST) Narrative TICO NELSON - 03/17/2022 2:40 PM EST This exam is auto-finalizing. It's purpose is for storage only. Nya Hernandez APRN IMG FILM LIBRARY O RDERABLES [place], [place] documented in this encounter Visit Diagnoses Not on filedocumented in this encounter Care Teams Founder Ceo & President Relationship Specialty Start Date End Date Nya Hernandez APRN [address] [place] [id number] PCP - General Family Medicine 05/07/21 documented as of this encounter
--- OUTSIDE RECORDS SUMMARY | 2023-12-28 16:20 | XMS_ITS | Encounter Summary ---
Author Organization [facility] [place] [address] Care Team Providers Care Hide Buyer Name Role Phone Unavailable Primary Care Provider Unavailabl e Encounter Details Date Type Department Care Team (Late st Contact Info) Description 11/25/2020 12:00 PM EDT - 11/25/2020 12:30 PM EDT Surgery [place] [address] Kervin Rubio MD [facility] [place] [address] EGD WITH BIOPSY (WRVU 2.39) Social History Tobacco Use Types Packs/Day Years Used Date Smoking Tobacco: Former Cigarettes 1 40 0 05/1980 - 05/2020 Smokeless Tobacco: Never Comments:never vape Alcohol Use [...] Sign Reading Time Taken Comments Blood Pressure 130/89 11/25/2020 12:30 PM EDT Pulse 73 11/25/2020 12:05 PM EDT Temperature 36.6 ??C (97.8 ??F) 11/25/2020 11:02 AM E DT Respiratory Rate 15 11/25/2020 12:30 PM EDT Oxygen Saturation 93% 11/25/2020 12:30 PM EDT Inhaled Oxygen Concentration - - Weight 74.8 kg (165 lb) 11/25/2020 11:02 AM EDT Height 160 cm (5' 3) 11/25/2020 11:02 AM EDT Body Mass Index 29.23 11/25/2020 11:02 AM EDT documented in this encounter Discharge Instructions * Discharge Instructions* Pa Benitez RN - 11/25/2020 12:45 PM EDT Upper GI Endoscopy: What to Expect at Home Your Recovery You will be able to go home after your doctor or nurse checks to make sure you are not having any problems. You may have to stay overnight if you had treatment during the test. You may have a sore throat fora day or two after the test. This care sheet gives you a general idea about what to expect after the test. How can you care for yourself at home? Activity Rest when you feel tired. ?? You can do your normal activities when it feels okay to do so. Diet ?? Follow your doctor's directions for eating. ?? Unless your doctor has told you not to, drink plenty of fluids. This helps to replace the fluidsthat were lost during the prep. ?? Do not drink alcohol. Medicines ?? Your doctor will tell you if and when you can restart your medicines. He or she will also give you instructions about taking any new medicines. ?? If you take blood thinners, such as warfarin (Coumadin), clopidogrel (Plavix), or aspirin, be sure to talk to your doctor. He or she will tell you if and when to start taking those medicines again. Make sure that you understand exactly what your doctor wants you to do. ?? If polyps were removed or a biopsy was done during the test, your doctor may tell you not to take aspirin or other anti-inflammatory medicines for a few days. These include ibuprofen (Advil, Motrin) and naproxen (Aleve). ?? If you have a sore throat the day after the procedure, use an rzso-pzd-xihoudx spray to numb your throat. Sucking on throat lozenges and gargling with warm salt water may also help relieve your symptoms. Other instructions ?? For your safety, do not drive or operate machinery until the medicine wears off and you can think clearly. Your doctor may tell you not to drive or operate machinery until the day after your test. ?? Do not sign legal documents or make major decisions until the medicine wears off and you can think clearly. The anesthesia can make it hard for you to fully understand what you are agreeing to. Additional Information for Sedation Patients For patients who received sedation: ?? You may have received medications before and/or during your procedure which effects your judgement and reaction time. ?? Do not drive, operate machinery, drink alcoholic beverages or make important decisions for 24 hours. ?? Be careful on stairs as you may be unsteady on your feet. ?? You may eat a regular diet as tolerated. ?? Do not smoke if you are alone. ?? IV site: Slight redness or tenderness is normal, you can use a warm compress if you would like. If tenderness and/or redness increase or if foul drainage occurs, please contact your Doctor. Please call [phone] before 8pm Mon-Fri with problems, questions or concerns. If you call after 8pm or on weekends, call the Hospital at [phone] and ask to speak to the Oil Well Logger secretary to board of commissioners and the blade operator will contact that person for you. When should you call for help? Call 543 anytime you think you may need emergency care. For example, call if: ?? You passed out (lost consciousness). ?? You pass maroon or bloody stools. ?? You have trouble breathing. Call your doctor now or seek immediate medical care if: ?? You have pain that does not get better after you take pain medicine. ?? You are sick to your stomach or cannot drink fluids. ?? You have new or worse belly pain. ?? You have blood in your stools. ?? You have a fever. ?? You cannot pass stools or gas. Watch closely for changes in your health, and be sure to contact your doctor if you have any problems. Where can you learn more? [facility] View your After Visit Summary and more online at [email or web address] If you would like to provide feedback about your hospital experience, please call the Office of Patient and Family Relations at . If you have received this After Visit Summary in error, please immediately return it in person to the department, or notify the [facility] Privacy Office by calling toll free at between the hours of 8AM and 5PM to arrange for our retrieval of the documents at no cost to you. Content Version: 12.2 ?? [id number] [employer]. Care instructions adapted under license by [facility]. If you have questions about a medical condition or this instruction, always ask your healthcare professional. [employer] disclaims any warranty or liability for your use of this information. documented in this encounter Medications at Time of Discharge Medication Sig Dispensed Refills Start Date End Date Eliquis 5 mg Tablet TAKE ONE TABLET [...] Take 1 tablet by mouth daily. 06/28/2020 LORazepam (Ativan) 0.5 mg Tablet Take 0.5 mg by mouth every 6 hours as needed for Anxiety. 06/01/2021 acetaminophen (Tylenol) 500 mg Tablet Take 2 tablets by mouth every 6 hours as needed for Pain or Fever. 30 tablet 1 06/27/2020 06/15/2022 aspirin 81 mg Tablet, Chewable Take 81 mg by mouth daily. 30 tablet 3 06/28/2020 06/15/2022 bisacodyL (Dulcolax) [address] 1 suppository rectally daily as needed. 60 suppository 3 06/27/2020 06/01/2021 enoxaparin (Lovenox) 80 mg/0.8 mL Syringe Inject 0.7 mLs subcutaneously 2 times daily. 06/27/2020 06/01/2021 gabapentin (Neurontin) 300 mg Capsule Take 1 capsule by mouth 3 times daily. 90 capsule 12 06/27/2020 06/03/2021 melatonin 3 mg Tablet Take 3 tablets by mouth nightly. 06/27/2020 06/15/2022 metoclopramide (Reglan) 10 mg Tablet Take 1 tablet by mouth 4 times daily. 40 tablet 06/27/2020 06/01/2021 oxyCODONE (Roxicodone) 5 mg Tablet Take 1 tablet by mouth every 4 hours as needed for Pain. 12 tablet 06/27/2020 06/01/2021 pantoprazole EC (Protonix) 40 mg Tablet, Delayed Release (E.C.) Take 1 tablet by mouth 2 times daily. 90 tablet 3 06/27/2020 06/01/2021 documented as of this encounter H&P Notes * Kervin Rubio MD - 11/25/2020 10:55 AM EDT Gastroenterology and Hepatology Pre-Procedure History and Physical Exam Procedure: EGD: Indication: s/p perf DU with multiple reops assess healing Patient Active Problem List Diagnosis Code ??? Perforated viscus R19.8 EXAM: HEENT: Airway examined, oropharynx clear Mallampati Score: II (soft palate, uvula, fauces visible) LUNGS: Clear to auscultation HEART: Regular rate and rhythm, normal S1, S2 ABDOMEN: Normal bowel sounds, soft, non tender, non distended, A/P Proceed with the planned endoscopic procedure. ASA 2 - Patient with mild systemic disease with no functional limitations Sedation Plan: moderate (conscious sedation) Risks and benefits of the procedure explained to the patient. Consent signed. documented in this encounter Plan of Treatment Not on file documented as of this encounter Procedures Procedure Name Priority Date/Time Associated Diagnosis Comments SPECIMEN TO PATHOLOGY Routine 11/25/2020 12:03 PM EDT SURGICAL PATHOLOGY REPORT Routine 11/25/2020 11:56 AM EDT Upper Gi Endoscopy, Biopsy ([id number]) 11/25/2020 11:44 AM EDT s/p surgical repair perforated duodenal ulcer, will need EGD in approximately 6-8w to evaluate for full healing UPPER GI ENDOSCOPY Routine 11/25/2020 11 :43 AM EDT documented in this encounter Results * Specimen to Pathology (11/25/2020 12:03 PM EDT) AP Specimen 11/25/2020 12:0 3 PM EDT 11/25/2020 12:03 PM EDT Narrative [facility] - 11/25/2020 12:03 PM EDT Specimen requisition ordered. ??Separate Pathology report to follow Kervin Rubio MD PATHOLOGY/CYTOLOGY [facility] [place] [place] [address] * Surgical Pathology Report (11/25/2020 11:56 AM EDT) Final Diagnosis [id number] ? Location: 4T; EA06; A The signing pathologist has (i) examined the relevant preparation(s) for the specimen(s) and (ii) rendered or confirmed the diagnosis(es). . ?Surgical Pathology DIAGNOSIS A - Gastric biopsies r/o H Pylori, biopsy: - ??Gastric antrum-type and body/fundic-typ e mucosa, negative for diagnostic abnormality. CR-PX Electronically signed by: ?Chuck Jarquin MD Verified: ??11/29/2020 15:41 ??Pathologist Performed at: ??-[facility] [place], [place] SPECIMEN(S) SUBMITTED A - Gastric biopsies r/o H Pylori, biopsy (4) CLINICAL INFORMATION 55-year-old female with history of duodenal ulcer perforation SPECIMEN PROCESSING A - Labeled/Fixativ e: Gastric biopsies, rule out H. pylori, formalin. Quantity/Size: Six, ranging from 0.1-0.4 cm. Tissue Description: Soft, pink tissues. Sections/Proces sing: Submitted en toto ??in 2 cassettes labeled A1-A2. ??sns 11/29/2020 3:41 PM EDT [facility] GI Biopsy 11/25/2020 11:5 6 AM EDT 11/25/2020 11:56 AM EDT Kervin Rubio MD PATHOLOGY/CYTOLOGY Rickey NIÑO [facility] [place] [address] * UPPER GI ENDOSCOPY (11/25/2020 11:43 AM EDT) UPPER GI ENDOSCOPY [facility] Endoscopy Procedure Date: 11/25/2020 11:43 AM ? Patient Name: Eliza Moya ? N: [id number] ? Date of : 1965 ? Age: 55 ? Order #: [id number] ? Instrument Name: [id number] ? Procedure: ? Upper GI endoscopy Indications: ? Pt with h/o perforated duodenal ulcer ? s/p 4 surgeries 05/2020, s/p ? duodenojejunostomy Providers: ? Kervin Rubio MD, Abiodun Noel ? Shahram Lizarraga, Low Altitude Air Defense Officer Referring : ?Sugey Vasquez Medicines: ? Midazolam 4 mg IV, Fentanyl 150 ? micrograms IV Complications: ? No immediate complications. Procedure: ? The procedure, indications, benefits, ? risks and alternatives were explained ? to the patient. Specifically ? discussed were potential ? complications including, but not ? limited to, bleeding, perforation, ? infection, missing a cancer, and ? adverse medication reactions. The ? Endoscope was introduced through the ? mouth, and advanced to the fourth ? part of duodenum. The patient ? tolerated the procedure well. The ? upper GI endoscopy was accomplished ? without difficulty. The patient ? tolerated the procedure well. ? Findings: ? The examined esophagus was normal. ? The Z-line was regular and was found 40 cm from the ? incisors. ? The entire examined stomach was normal. Biopsies were ? taken with a cold forceps for Helicobacter pylori ? testing. ? The examined [place] duodenum was normal. No ? ulcerations. ? S/p duodenal bulb jejunostomy. 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 ? There was a jejunal limb that was traversed for 20 ? cm, normal ? Moderate Sedation: ? I was present during the intraservice time as ? documented by the sedation RN. Impression: ?- Normal esophagus. ? - Z-line regular, 40 cm from the ? incisors. ? - Normal stomach. Biopsied. ? - Normal examined [place] duodenum. ? S/p duodenojejunostomy, normal ? anastomosis, no inflammation ? 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 Ulcer has healed Recommendation: ?- Await pathology results. ? Consider maintenance with PPI if H ? Pylori is negative ? Attending Participation: ? I personally performed the entire procedure. ? Kervin Rubio MD 11/25/2020 12:10:16 PM This report has been signed electronically. Number of Addenda: 0 Note Initiated On: 11/25/2020 11:43 AM PROVATION 11/25/2020 11:4 3 AM EDT Sugey Vasquez INVESTOR RELATIONS SPECIALIST GENERAL SURGICAL ORD ERABLES PROVATION documented in this encounter Visit Diagnoses Not on filedocumented in this encounter Administered Medications Inactive Administered Medications - up to 3 most recent administrations Medication Order MAR Action Action Date Dose Rate Site benzocaine (Hurricane One) 20% spray (restricted to renato-procedural use) ONCE PRN, Starting on Wed11/25/20 at 1148, Until Wed11/25/20 at 1501, Intra-Operative (Intra-Procedure) Given 11/25/2020 11:48 AM EDT 1 spray fentaNYL (pf) (50 mcg/mL) multi-dose injection ONCE PRN, Starting on Wed11/25/20 at 1147, Until Wed11/25/20 at 1501, Intra-Operative (Intra-Procedure), Routine Given 11/25/2020 11:59 AM EDT 25 mcg Given 11/25/2020 11:53 AM EDT 25 mcg Given 11/25/2020 11:50 AM EDT 50 mcg lactated ringers infusion 100 mL/hr, Intravenous, CONTINUOUS, Starting on Wed11/25/20 at 1115, Until Wed11/25/20 at 1501, Endoscopy (Day of Procedure) New Bag 11/25/2020 11:15 AM EDT 100 mL/hr 100 mL/hr midazolam (pf) (Versed) (1 mg/mL) multi-dose injection ONCE PRN, Starting on Wed11/25/20 at 1147, Until Wed11/25/20 at 1501, Intra-Operative (Intra-Procedure), Routine Given 11/25/2020 11:59 AM EDT 1 mg Given 11/25/2020 11:53 AM EDT 1 mg Given 11/25/2020 11:50 AM EDT 1 mg documented in this encounter Active and Recently Administered Medications Times are shown in EDT. Continuous Medication Order 11/23/2020 11/24/2020 11/25/2020 lactated ringers infusion 100 mL/hr, Intravenous, CONTINUOUS, Starting on Wed11/25/20 at 1115, Until Wed11/25/20 at 1501, Endoscopy (Day of Procedure) 1115 (New Bag - Prov ider: Birdie Rodriguez, FRANKIE) PRN Medication Order 11/23/2020 11/24/2020 11/25/2020 benzocaine (Hurricane One) 20% spray (restricted to renato-procedural use) (CANCELED) ONCE PRN, Starting on Wed11/25/20 at 1148, Until Wed11/25/20 at 1501, Intra-Operative (Intra-Procedure) 1148 (Given - Provid er: Brissa Falcon RN) fentaNYL (pf) (50 mcg/mL) multi-dose injection (CANCELED) ONCE PRN, Starting on Wed11/25/20 at 1147, Until Wed11/25/20 at 1501, Intra-Operative (Intra-Procedure), Routine 1147 (Given - Provid er: Brissa Falcon RN)1150 (Given - Provider: Brissa Falcon RN)1153 (Given - Provider: Brissa Falcon RN)1159 (Given - Provider: Brissa Falcon RN) midazolam (pf) (Versed) (1 mg/mL) multi-dose injection (CANCELED) ONCE PRN, Starting on Wed11/25/20 at 1147, Until Wed11/25/20 at 1501, Intra-Operative (Intra-Procedure), Routine 1147 (Given - Provid er: Brissa Falcon RN)1150 (Given - Provider: Brissa Falcon RN)1153 (Given - Provider: Brissa Falcon RN)1159 (Given - Provider: Brissa Falcon RN) documented in this encounter
--- OUTSIDE RECORDS SUMMARY | 2023-12-28 16:20 | XMS_ITS | Encounter Summary ---
Author Organization [facility] [place] [address] Care Team Providers Care Electrification Adviser Name Role Phone Nya Hernandez APRN Primary Care Provider [phone] Reason for Referral * Consultation (Routine) - Closed Specialty Diagnoses / Procedures Referred By Tomas early Referred To Contact Diagnoses Non-ST elevation myocardial infarction (NSTEMI) Leonel Claire MD [facility] [place] [address] Cardiac Rehab, [address] [place] [address] Referral ID Status Reason Start Date Expiration Date V isits Requested Visits Authorized [id number] Closed Consult, Test & Treat 06/03/2021 11/30/2021 36 36 Reason for Visit * Auth/Cert Specialty Diagnoses / Procedures Referred By Tomas early Referred To Contact Diagnoses NSTEMI (non-ST elevated myocardial infarction) NSTEMI Procedures EMERGENCY IPI Referral ID Status Reason Start Date Expiration Date Visits Re quested Visits Authorized [id number] 1 1 Encounter Details Date Type Department Care Team (Latest Contact Info) Description 06/01/2021 11:26 AM EDT - 06/03/2021 11:05 AM EDT Hospital Encounter Cardiac [place] [address] Charlie Gaxiola MD [facility] [place] [address] Leonel Claire MD [facility] [place] [address] Non-ST elevation myocardial infarction (NSTEMI) Discharge Disposition: Home Social History Tobacco Use [...] Sign Reading Time Taken Comments Blood Pressure 114/64 06/03/2021 9:07 AM EDT Pulse 87 06/03/2021 9:07 AM EDT Temperature 36.6 ??C (97.9 ??F) 06/03/2021 7 :40 AM EDT Respiratory Rate 18 06/03/2021 9:07 AM EDT Oxygen Saturation 98% 06/03/2021 9:0 7 AM EDT Inhaled Oxygen Concentration - - Weight 90.8 kg (200 lb 2.8 oz) 06/03/2021 4:28 AM EDT bed zero performed before weight Height 160 cm (5' 2.99) 06/01/2021 1:0 5 PM EDT Body Mass Index 35.47 06/01/2021 1:05 PM EDT documented in this encounter Discharge Summaries * Julio Todd PA - 06/03/2021 10:29 AM EDT Images from the original note were not included. Discharge Summary Patient Name: Eliza Moya Patient Age: 56 y.o. Language: Albanian Race: White Ethnicity: Not nor Admit date: 06/01/2021 Discharge date and time: 06/03/2021 10:38 AM Attending Physician: Leonel Claire MD Discharge Physician: Leonel Claire MD Follow-up Recommendations for Providers: Eliza Moya is a 56 y.o. female who was admitted for evaluation and management of an NSTEMI. NSTEMI type I -Transthoracic echocardiogram 06/02/21 remarkable for a preserved LVEF of 60% and WMAs in the circumflex distribution. -LHC 06/02/21 remarkable for DESx1 to the midLCx/proximal OM2. -Dual-antiplatelet therapy: continue Aspirin 81 mg daily and Plavix 75 mg daily. Her Eliquis may beresumed. Continue triple therapy for a month, then discontinue the aspirin - continue Plavix 75 mg daily and Eliquis 5 mg BID therafter. Pantoprazole 40mg daily while on triple therapy. -Started Atorvastatin 80mg nightly -Continuing home losartan 50mg daily -Follow up with primary care scheduled in two weeks and with [facility] cardiology scheduled in 5 weeks Inpatient Provider Contact Information: MD Elias Samson APRN Anthony Machado, PA-C Cardiovascular Medicine [phone] Discharge Diagnoses (Hospital Problems) and Secondary Diagnoses (Chronic Problems): Active Hospital Problems Diagnosis ??? NSTEMI (non-ST elevated myocardial infarction) Resolved Hospital Problems No resolved problems to display. Active Non-Hospital Problems Diagnosis ??? Perforated viscus Studies and Procedures: Transthoracic echocardiogram 06/02/21 Interpretation Summary 1. Wall thickness is mildly increased. Left ventricular systolic function is normal. The left ventricular ejection fraction is 60% by Garcia's biplane. The basal to mid inferolateral wall and mid anterolateral segment are hypokinetic. 2. Right ventricle is normal in size and function. 3. No significant valvular disease noted on this study. See report for additional findings. Compared to the prior study 06/2020 the regional wall motion abnormalities in the circumflex distribution are new. Left heart catheterization 06/02/21 SUMMARY AND THERAPEUTIC RECOMMENDATIONS: ?? Eliza Moya presents with a NSTEMI. She had small and diffusely diseased vessels and her culprit was a 99% lesion in the mid LCX and prox OM2, which we stented using a 2.25 x 12 mm Synergy XD BENSON stent. ?? Please continue Aspirin 81 mg daily, Plavix 75 mg daily and high intensity statin. Her Eliquis may be resumed. Please continue triple therapy for a month, then discontinue the aspirin - continue Plavix 75 mg + Eliquis 5 mg BID. After a year Plavix may be replaced with Aspirin 81 mg. ?? The case was reviewed and discussed with the patient and Dr. Grant Claire. ?? I advised cardiac rehab. ?? I was present during the entire procedure and personally dictated or confirmed the above report. 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 ?? She presented to OSH early this morning for chest pain that developed last night after eating 4-5 meatballs. She was in her usual state of health up until this. Pain described as a burning sensation in her substernal area, did not radiate. The pain was associated with diaphoresis, nausea and vomiting, as well as eventual arm numbness from her wrist to her elbows bilaterally. She tried Maalox, a glass of milk, and yogurt however she had no relief and the pain persisted prompting her to call 911.At approximately 4 this morning, EMS transported her to [facility] where she ruled in for NSTEMI with HS troponins of 762 (ULN 51). Transfered to [facility] for further evaluation. ?? Of note, she has a fairly moderate sized abdominal hernia and is due to establish care with surgery in a few weeks to discuss next steps. No currently scheduled surgeries. Hospital Course: #NSTEMI type I #ASCVD s/p DESx1 to the proximal OM2 Eliza Moya is a 56 y.o. female who presented to??[facility]??with chest pain and??ruled in for NSTEMI with HS troponins of 762 (ULN 51). ??Transfered??to [facility] for further ischemic evaluation. Troponin continue to uptrend while here, peak troponin-T of 1.97. TTE 06/02/21 remarkable for a LVEF of 60% and WMAs in the circumflex distribution. She is now status post [facility] yesterday, 06/02/21 with successful stent to the midLCx/proxOM2. Right ular artery access site clean, dry, and intact without evidence of hematoma or bleeding. Stable from a cardiac standpoint and chest pain free at time of discharge.?? Dual-antiplatelet therapy recommendations: continue Aspirin 81 mg daily??and??Plavix 75 mg daily.??Her Eliquis may be resumed.??Continue triple therapy for a month, then discontinue the aspirin - continue Plavix 75 mg??daily and??Eliquis 5 mg BID??therafter. ?? #Paroxymal afib On continuous telemetry monitoring. Remained in sinus rhythm. Continue home eliquis 5mg twice daily. ?? #HTN Blood pressure trends over the past 12 hours were as follows: BP: (81-114)/(51-71) . Continue home losartan 50mg daily. #COPD, newly on 2L home O2 Chronic respiratory failure with hypoxia requiring 2L NC of O2. This was a continuation of her homeO2 requirement. Functional and Cognitive Status: Stable. Alert and orientedx3. Ambulation limited at baseline secondary to right above knee amputation. Important Studies and Lab Data: Labs: Lab Results Component Value Date WBC 12.0 (H) 06/03/2021 HGB 12.6 06/03/2021 HCT 40.4 06/03/2021 PLATELET 418 (H) 06/03/2021 No results for input(s): INR in the last 168 hours. Lab Results Component Value Date NA 138 06/03/2021 K 4.3 06/03/2021 CL 104 06/03/2021 CO2 22 06/03/2021 BUN 16 06/03/2021 CREATININE 0.78 06/03/2021 No results for input(s): TSH in the last 7068 hours. Recent Labs 06/02/21313 HA1C 5.6 Recent Labs 06/02/21 0314 06/01/21 2101 06/01/21 1452 TROPONINT 1.89* 1.97* 1.06* Lab Results Component Value Date CHLPL 166 06/02/2021 HDL 37 06/02/2021 CHOLHDL 4.5 06/02/2021 TRIG 203 06/02/2021 LDLDIRECT 102 06/02/2021 Pending Studies and Lab Data: None. Discharge Conditions/Prognosis: Stable. Alert and orientedx3. Ambulation limited at baseline secondary to right above knee amputation. Discharge to: Home with family. Updated Allergies/ADRs: Allergies Allergen Reactions ??? Doxycycline Other (See Comments) RADHA- unknown ??? Sulfa (Sulfonamide Antibiotics) Other (See Comments) RADHA- unknown ??? Vicodin [Hydrocodone-Acetaminophen] Other (See Comments) RADHA- unknown Immunizations Given this Hospitalization: There is no immunization history for the selected administration types on file for this patient. Discharge Medications: Your Medications New Medications Dose Details atorvastatin 80 mg Tab Commonly known as: Lipitor Take 1 tablet by mouth every evening. 80 mg Quantity: 90 tablet Refills: 3 clopidogreL 75 mg Tab Commonly known as: Plavix Take 1 tablet by mouth daily. Start taking on: June 04, 2021 75 mg Quantity: 90 tablet Refills: 3 nitroGLYcerin 0.4 mg Subl Commonly known as: Nitrostat Place 1 tablet under the tongue every 5 minutes as needed for Chest pain. 0.4 mg Quantity: 25 tablet Refills: PRN Continued medications with new dosing Dose Details pantoprazole EC 40 mg Tbec Commonly known as: Protonix Take 1 tablet by mouth daily. Take one tablet by mouth daily for one month. Then you can stop. Start taking on: June 04, 2021 What changed: ?? when to take this ?? additional instructions 40 mg Quantity: 30 tablet Refills: 0 traZODone 50 mg Tab Commonly known as: Desyrel Take 0.5 tablets by mouth nightly. What changed: how much to take 25 mg Quantity: 90 tablet Refills: 3 Continued medications, unchanged Dose Details acetaminophen 500 mg Tab Commonly known as: Tylenol Take 2 tablets by mouth every 6 hours as needed for Pain or Fever. 1,000 mg Quantity: 30 tablet Refills: 1 albuteroL 90 mcg/actuation Hfaa INHALE TWO PUFFS BY MOUTH EVERY 4 TO 6 HOURS NEEDED FOR COUGH Refills: 0 aspirin 81 mg Chew Take 81 mg by mouth daily. 81 mg Quantity: 30 tablet Refills: 3 Eliquis 5 mg Tab TAKE ONE TABLET BY MOUTH TWICE A DAY Generic drug: apixaban Refills: 0 furosemide 20 mg Tab Commonly known as: Lasix daily. Refills: 0 gabapentin 300 mg Cap Commonly known as: Neurontin Take 1 capsule by mouth Daily at Noon. 300 mg Quantity: 90 capsule Refills: 12 levothyroxine 50 mcg Tab Commonly known as: Synthroid Take 1 tablet by mouth every morning. 50 mcg Quantity: 90 tablet Refills: 3 losartan 50 mg Tab Commonly known as: Cozaar Take 50 mg by mouth daily. 50 mg Refills: 0 melatonin 3 mg Tab Take 3 tablets by mouth nightly. 9 mg Refills: 0 multivitamin with minerals 9 mg iron-400 mcg Tab Commonly known as: Thera M Take 1 tablet by mouth daily. 1 tablet Refills: 0 STOPPED Medications bisacodyL 10 mg Supp Commonly known as: Dulcolax diclofenac EC 75 mg Tbec Commonly known as: Voltaren enoxaparin 80 mg/0.8 mL Syrg Commonly known as: Lovenox LORazepam 0.5 mg Tab Commonly known as: Ativan metoclopramide 10 mg Tab Commonly known as: Reglan oxyCODONE 5 mg Tab Commonly known as: Roxicodone Smoking Status at Discharge: Social History Tobacco Use Smoking Status Former Smoker ??? Packs/day: 1.00 ??? Years: 40.00 ??? Pack years: 40.00 ??? Types: Cigarettes ??? Quit date: 05/2020 ??? Years since quittin.0 Smokeless Tobacco Never Used Tobacco Comment never vape Instructions Given to Patient at Discharge: Patient Instructions You were hospitalized for evaluation and treatment of your chest pain/pressure. You had elevated heart enzymes which indicate your heart was under stress. You underwent an ultrasound of your heart, also called an echocardiogram, which showed that your heart had normal pump function, but one of the [place] of your heart was pumping differently, sometimes this is caused by a blockage of a heart artery. In order to treat this, you underwent a cardiac catheterization at which time a stent was placed to the second obtuse marginal coronary artery, this is an artery that comes off the middle portion of the left circumflex coronary artery. In order to protect your stent from blood clots forming, you will need to remain on two antiplatelet medications called aspirin and clopidogrel (or Plavix). Start taking these to medications, once per day, every day, immediately on discharge. These are very important medications and you cannot missyour daily dose. Since you are taking another, different type of blood thinning agent, apixaban (or Eliquis), we ask that you stop taking aspirin after 30 days. After this you will continue your twice daily apixaban (Eliquis) and the clopidogrel (Plavix) every day for 12 months. First 30 days: Aspirin 81mg once daily + clopidogrel (Plavix) 75mg once daily + apixaban (Eliquis) 5mg twice daily For the next 11 months after: Clopidogrel (Plavix) 75mg once daily + apixaban (Eliquis) 5mg twice daily You were also started on a statin called atorvastatin which will help reduce your cholesterol as well as help to reduce inflammation in your heart arteries. You will continue another one of your homemedications Losartan. This medication helps reduce your blood pressure and helps your heart heal properly. You were provided with a supply of sublingual nitroglycerin. Keep it with you at all times. If you have angina symptoms, such as chest pain or pressure, sit down and rest. Take the first dose of nitroglycerin and let it melt under your tongue. If symptoms go away, do not take any additional. If your symptoms get worse or are not getting better within 5 minutes, take a second nitro tab and call 911 right away. Stay on the phone. The emergency waterworks pump station operator will tell you what to do. Nitroglycerin is an emergency use medication. If you are taking this more than once in a week please alert your provider. Nitroglycerin in the original bottle is good for 1 year once the bottle is opened or until the date on the bottle is not used. If the bottom of the bottle is obscured by powder,or the label falls of discard the nitroglycerin and get a new bottle. You may resume light activity after your discharge. Do not do any strenuous activity for the first week after your catheterization, including no lifting anything over 10 lbs. This is to help protect your cardiac cath access site and to continue to let it heal properly. You may shower, but do not submerge your cardiac cath access site in water for 1 week (no tubs, hot tubs, lakes, or pools). General Instructions Call your doctor if: Chest pain, dyspnea, pain or swelling in legs occurs, or for weight gain of 2 pounds overnight or 5pounds in 5 days. If you have non-emergent questions, prior to your follow-up visit call: Wednesday-Wednesday between the hours of 8AM-5PM please call the Cardiology Clinic [phone] to speak with a nurse. All other hours please call the Hospital Mixing Plant Operator [phone] and ask to speak to the perl programmer on-call. Follow up Appointments: Doctor Where Phone # Date Time PCP Nya Hernandez APRN [address] [place] [phone] WednesdayJune 17 2:00pm Environmental Science Program Director Dr. Chayo Keen [address] [place] [address] [phone] WednesdayJuly 08 11:20am Future Appointments and Orders Future Appointments and Orders Future Appointments Provider Department Dept Phone 06/11/2021 11:00 AM Nirav Bowen MD General Surgery at [facility] Arrive at: [facility] Future Orders Complete By Expires Referral to Cardiac Rehab [[id number] Custom] As directed Process Instructions: If no progress note charted, please enter Clinical details in comments. Scheduling Instructions: Questions: My question or request is: NSTEMI. [facility] at [facility] Discharge References/Attachments None Julio Todd PA-C 06/03/2021 documented in this encounter Discharge Instructions * Discharge Instructions* Julio Todd PA - 06/03/2021 10:13 AM EDT Call your doctor if: Chest pain, dyspnea, pain or swelling in legs occurs, or for weight gain of 2 pounds overnight or 5pounds in 5 days. If you have non-emergent questions, prior to your follow-up visit call: Wednesday-Wednesday between the hours of 8AM-5PM please call the Cardiology Clinic [phone] to speak with a nurse. All other hours please call the Hospital Mixing Plant Operator [phone] and ask to speak to the perl programmer on-call. Follow up Appointments: Doctor Where Phone # Date Time PCP Nya Hernandez APRN [address] [place] [phone] WednesdayJune 17 2:00pm Environmental Science Program Director Dr. Chayo Keen [address] [place] [address] WednesdayJuly 08 11:20am * Patient Instructions* Julio Todd PA - 06/03/2021 9:56 AM EDT You were hospitalized for evaluation and treatment of your chest pain/pressure. You had elevated heart enzymes which indicate your heart was under stress. You underwent an ultrasound of your heart, also called an echocardiogram, which showed that your heart had normal pump function, but one of the pemberton of your heart was pumping differently, sometimes this is caused by a blockage of a heart artery. In order to treat this, you underwent a cardiac catheterization at which time a stent was placed to the second obtuse marginal coronary artery, this is an artery that comes off the middle portion of the left circumflex coronary artery. In order to protect your stent from blood clots forming, you will need to remain on two antiplatelet medications called aspirin and clopidogrel (or Plavix). Start taking these to medications, once per day, every day, immediately on discharge. These are very important medications and you cannot missyour daily dose. Since you are taking another, different type of blood thinning agent, apixaban (or Eliquis), we ask that you stop taking aspirin after 30 days. After this you will continue your twice daily apixaban (Eliquis) and the clopidogrel (Plavix) every day for 12 months. First 30 days: Aspirin 81mg once daily + clopidogrel (Plavix) 75mg once daily + apixaban (Eliquis) 5mg twice daily For the next 11 months after: Clopidogrel (Plavix) 75mg once daily + apixaban (Eliquis) 5mg twice daily You were also started on a statin called atorvastatin which will help reduce your cholesterol as well as help to reduce inflammation in your heart arteries. You will continue another one of your homemedications Losartan. This medication helps reduce your blood pressure and helps your heart heal properly. You were provided with a supply of sublingual nitroglycerin. Keep it with you at all times. If you have angina symptoms, such as chest pain or pressure, sit down and rest. Take the first dose of nitroglycerin and let it melt under your tongue. If symptoms go away, do not take any additional. If your symptoms get worse or are not getting better within 5 minutes, take a second nitro tab and call 911 right away. Stay on the phone. The emergency waterworks pump station operator will tell you what to do. Nitroglycerin is an emergency use medication. If you are taking this more than once in a week please alert your provider. Nitroglycerin in the original bottle is good for 1 year once the bottle is opened or until the date on the bottle is not used. If the bottom of the bottle is obscured by powder,or the label falls of discard the nitroglycerin and get a new bottle. You may resume light activity after your discharge. Do not do any strenuous activity for the first week after your catheterization, including no lifting anything over 10 lbs. This is to help protect your cardiac cath access site and to continue to let it heal properly. You may shower, but do not submerge your cardiac cath access site in water for 1 week (no tubs, hot tubs, lakes, or pools). documented in this encounter Medications at Time of Discharge Medication Sig Dispensed Refills Start Date End Date atorvastatin (Lipitor) 80 mg Tablet Take 1 [...] Take 1 tablet by mouth daily. 06/28/2020 nitroGLYcerin (Nitrostat) 0.4 mg Tablet, Sublingual Place [...] as of this encounter Progress Notes * Elias Overton RN - 06/03/2021 10:46 AM EDT AVS reviewed with pt and son, questions answered and copy provided. IV/tele removed. * Julio Todd PA - 06/03/2021 9:27 AM EDT Images from the original note were not included. Inpatient Cardiology Progress Note Patient Name: Eliza Moya Service: SPRAY PAINTER / PA Responsible Attending: Leonel Claire MD Reason for continued hospitalization: NSTEMI, type I ASCVD s/p DESx1 to midLCx/proxOM2 Active Problems: Active Hospital Problems Diagnosis ??? NSTEMI (non-ST elevated myocardial infarction) Resolved Hospital Problems No resolved problems to display. Interval History: No acute events overnight. Patient has remained chest pain and dyspnea free sincearrival. She is now status post [facility] yesterday, 06/02/21 with successful stent to the midLCx/proxOM2.Right ular artery access site clean, dry, and intact without evidence of hematoma or bleeding. Agreeable for discharge today. Review of Systems: Review of Systems Constitutional: Negative for chills, diaphoresis, fatigue and fever. Respiratory: Negative for cough, chest tightness, shortness of breath and wheezing. Cardiovascular: Negative for chest pain, palpitations and leg swelling. Gastrointestinal: Positive for abdominal distention (Chronic, wears binder). Negative for constipation, diarrhea, nausea and vomiting. Musculoskeletal: S/p right AKA Neurological: Negative for dizziness, speech difficulty and light-headedness. Telemetry: Sinus rhythm with occasional PACs HR: 60s-80s Meds: Scheduled Meds: ??? metoprolol succinate XL 25 mg Oral Daily ??? aspirin 81 mg Oral Daily ??? gabapentin 300 mg Oral Daily at Noon ??? levothyroxine 50 mcg Oral QAM ??? clopidogreL 75 mg Oral Daily ??? atorvastatin 80 mg Oral QPM ??? losartan 50 mg Oral Daily ??? fluticasone propionate 1 puff Inhalation BID ??? tiotropium bromide 2 puff Inhalation Daily ??? traZODone 50 mg Oral Nightly Continuous Infusions: PRN Meds:acetaminophen, nitroGLYcerin Physical Exam: Vital Signs: Last value Range last 12 hrs Temperature Temp: 36.6 ??C (97.9 ??F) Temp: [36.6 ??C (97.9 ??F)] Heart Rate Heart Rate: 64 Heart Rate: [64-72] Blood Pressure BP: 112/59 BP: (81-112)/(51-71) Respiratory Rate Resp: 18 Resp: [17-19] SpO2 SpO2: 97 % SpO2: [96 %-98 %] Physical Exam Vitals and nursing note reviewed. Constitutional: General: She is not in acute distress. Appearance: She is obese. HENT: Head: Normocephalic and atraumatic. Eyes: General: Right eye: No discharge. Left eye: No discharge. Extraocular Movements: Extraocular movements intact. Conjunctiva/sclera: Conjunctivae normal. Cardiovascular: Rate and Rhythm: Normal rate and regular rhythm. Pulses: Normal pulses. Heart sounds: Normal heart sounds. No murmur heard. No friction rub. No gallop. Pulmonary: Effort: Pulmonary effort is normal. Breath sounds: No wheezing (improved), rhonchi or rales (improved). Abdominal: General: Bowel sounds are normal. There is distension (chronic, binder in place). Tenderness: There is no abdominal tenderness. There is no guarding. Musculoskeletal: Left lower leg: Edema (trace) present. Comments: Right Lower extremity AKA. Right ulnar artery access site clean, dry, and intact without evidence of hematoma or bleeding. Skin: General: Skin is warm and dry. Neurological: Mental Status: She is alert. Lab Comments: Recent Labs 06/03/21 0400 06/02/21 0314 06/01/21 1452 WBC 12.0* 10.4* 13.2* HGB 12.6 12.4 14.1 HCT 40.4 39.6 42.9 PLATELET 418* 427* 452* No results for input(s): INR in the last 168 hours. Recent Labs 06/03/21 0400 06/02/21 0314 NA 138 138 K 4.3 4.2 CL 104 102 CO2 22 25 BUN 16 16 CREATININE 0.78 0.74 No results for input(s): AST, ALT, ALKPHOS, BILITOT, BILIDIR in the last 168 hours. Recent Labs 06/03/21 0400 06/02/21 0314 CALCIUM 8.5 8.5 Recent Labs 06/02/21 0314 06/01/21 2101 06/01/21 1452 TROPONINT 1.89* 1.97* 1.06* Pertinent Radiographic/Diagnostic Results: Transthoracic echocardiogram 06/02/21 Interpretation Summary 1. Wall thickness is mildly increased. Left ventricular systolic function is normal. The left ventricular ejection fraction is 60% by Garcia's biplane. The basal to mid inferolateral wall and mid anterolateral segment are hypokinetic. 2. Right ventricle is normal in size and function. 3. No significant valvular disease noted on this study. See report for additional findings. Compared to the prior study 06/2020 the regional wall motion abnormalities in the circumflex distribution are new. ?? Left heart catheterization 06/02/21 SUMMARY AND THERAPEUTIC RECOMMENDATIONS: ?? Eliza Moya??presents with a NSTEMI. She had small and diffusely diseased vessels and her culprit was a 99% lesion in the??mid LCX and prox OM2, which we stented using a 2.25 x 12 mm Synergy XD BENSON stent.? Please continue Aspirin 81 mg daily,??Plavix 75 mg daily??and high intensity statin. Her Eliquismay be resumed. Please continue triple therapy for a month, then discontinue the aspirin - continuePlavix 75 mg + Eliquis 5 mg BID.??After a year Plavix may be replaced with Aspirin 81 mg. ?? The case was reviewed and discussed with the patient and Dr.??Grant Claire. ?? I advised cardiac rehab. ?? I was present during the entire procedure and personally dictated or confirmed the above report. Assessment: Eliza Moya is a 56 y.o. female with a PMH COPD on 2L, PAD, HTN, paroxysmal AF, duodenal perforation s/p gastric bypass (05/2020) with hospital course complicated by critical limb ischemia s/p RLE AKA, sepsis, acute renal failure requiring CVVH, and small right LL PE started on AC. Presented to [facility] with chest pain and ruled in for NSTEMI with HS troponins of 762 (ULN 51). Transfered to [facility] for further ischemic evaluation. Troponin continue to uptrend while here, peak troponin-T of 1.97. TTE 06/02/21 remarkable for a LVEF of 60% and WMAs in the circumflex distribution. She is now status post [facility] yesterday, 06/02/21 with successful stent to the midLCx/proxOM2.Right ular artery access site clean, dry, and intact without evidence of hematoma or bleeding. Stable for discharge today. Dual-antiplatelet therapy recommendations: continue Aspirin 81 mg daily and??Plavix 75 mg daily. Her Eliquis may be resumed. Continue triple therapy for a month, then discontinue the aspirin - continue Plavix 75 mg daily and Eliquis 5 mg BID therafter. ?? TREATMENT PLAN: #NSTEMI, type I #ASCVD s/p BENSON to midLCx/proxOM2 Telemetry monitoring Chest pain protocol Continue atorvastatin and losartan DAPT/triple therapy recommendations, as above Starting Pantoprazole daily for one month while on triple therapy TTE 06/02/21 with LVEF of 60% and WMAs in the circumflex distribution [facility] 06/02/21 remarkable for DESx1 to midLCx/proxOM2 ?? #Paroxymal afib Currently in SR Continue new metoprolol, as above Restart eliquis today ?? #HTN BP: (81-112)/(51-71) Stable trends Continue losartan ?? #COPD, 2L O2 dependent PRN duo nebs Code Status: Full code DVT Prophylaxis: Restarting eliquis this morning Discussed with MD Julio Samson PA-C Pager [phone] 06/03/2021 Associated attestation - Leonel Claire MD - 06/03/2021 10:41 PM EDT I have seen and examined the patient, have reviewed labs, pertinent images, and EKGs. I agree with the H&P, formulation, and plan as directed by the Julio Todd Patient presents with nste-acs. Culprit lesion om2. This was intervened 06/02 without issue. TAT x 1 month, then stop asa (leaving plavix + eliquis) x 11 months. Ok for discharge today * Julio Todd PA - 06/02/2021 9:24 AM EDT Images from the original note were not included. Inpatient Cardiology Progress Note Patient Name: Eliza Moya Service: SPRAY PAINTER / PA Responsible Attending: Leonel Claire MD Reason for continued hospitalization: NSTEMI, concerning for type I Active Problems: Active Hospital Problems Diagnosis ??? NSTEMI (non-ST elevated myocardial infarction) Resolved Hospital Problems No resolved problems to display. Interval History: No acute events overnight. Patient is chest pain and dyspnea free since arrival. Continues on IV heparin infusion. Troponin up-trending since arrival. NPO since midnight for [facility] today. Review of Systems: Review of Systems Respiratory: Positive for cough. Negative for chest tightness, shortness of breath and wheezing. Cardiovascular: Positive for leg swelling (LLE edema). Negative for chest pain and palpitations. Gastrointestinal: Positive for abdominal distention (Chronic, wears binder). Negative for constipation, diarrhea, nausea and vomiting. Musculoskeletal: S/p right AKA Neurological: Negative for dizziness, speech difficulty and light-headedness. Telemetry: Sinus rhythm with occasional PACs HR: 60s-80s Meds: Scheduled Meds: ??? aspirin 81 mg Oral Daily ??? gabapentin 300 mg Oral Daily at Noon ??? levothyroxine 50 mcg Oral QAM ??? clopidogreL 75 mg Oral Daily ??? atorvastatin 80 mg Oral QPM ??? metoprolol tartrate 12.5 mg Oral Q6H LEMUEL ??? losartan 50 mg Oral Daily ??? fluticasone propionate 1 puff Inhalation BID ??? tiotropium bromide 2 puff Inhalation Daily ??? traZODone 50 mg Oral Nightly Continuous Infusions: ??? heparin (porcine) infusion 1,200 Units/hr (06/02/21 9521) PRN Meds:acetaminophen, nitroGLYcerin, heparin (porcine) infusion AND heparin (porcine) Physical Exam: Vital Signs: Last value Range last 12 hrs Temperature Temp: 36.7 ??C (98.1 ??F) Temp: [36.7 ??C (98.1 ??F)] Heart Rate Heart Rate: 75 Heart Rate: [67-78] Blood Pressure BP: 108/63 BP: (91-108)/(53-63) Respiratory Rate Resp: 16 Resp: [16-21] SpO2 SpO2: 99 % SpO2: [85 %-99 %] Physical Exam Vitals and nursing note reviewed. Constitutional: General: She is not in acute distress. Appearance: She is obese. HENT: Head: Normocephalic and atraumatic. Eyes: General: Right eye: No discharge. Left eye: No discharge. Extraocular Movements: Extraocular movements intact. Conjunctiva/sclera: Conjunctivae normal. Cardiovascular: Rate and Rhythm: Normal rate and regular rhythm. Pulses: Normal pulses. Heart sounds: Normal heart sounds. No murmur heard. No friction rub. No gallop. Pulmonary: Effort: Pulmonary effort is normal. Breath sounds: Wheezing (mild, R>L) and rales (mild bibasilar, R>L) present. No rhonchi. Abdominal: General: Bowel sounds are normal. There is distension (chronic, binder in place). Tenderness: There is no abdominal tenderness. There is no guarding. Musculoskeletal: Left lower leg: Edema (1-2+) present. Comments: Right Lower extremity AKA Skin: General: Skin is warm and dry. Neurological: Mental Status: She is alert. Lab Comments: Recent Labs 06/02/21 0314 06/01/21 1452 WBC 10.4* 13.2* HGB 12.4 14.1 HCT 39.6 42.9 PLATELET 427* 452* No results for input(s): INR in the last 168 hours. Recent Labs 06/02/21 0314 NA 138 K 4.2 CL 102 CO2 25 BUN 16 CREATININE 0.74 No results for input(s): AST, ALT, ALKPHOS, BILITOT, BILIDIR in the last 168 hours. Recent Labs 06/02/21 0314 CALCIUM 8.5 Recent Labs 06/02/21 0314 06/01/21 2101 06/01/21 1452 TROPONINT 1.89* 1.97* 1.06* Pertinent Radiographic/Diagnostic Results: Left heart catheterization Awaiting study Transthoracic echocardiogram 06/02/21 Awaiting final interpretation Assessment: Eliza Moya is a 56 y.o. female with a PMH COPD on 2L, PAD, HTN, paroxysmal AF, duodenal perforation s/p gastric bypass (05/2020) with hospital course complicated by critical limb ischemia s/p RLE AKA, sepsis, acute renal failure requiring CVVH, and small right LL PE started on AC. Presented to [facility] with chest pain and ruled in for NSTEMI with HS troponins of 762 (ULN 51). Transfered to [facility] for further ischemic evaluation. Troponin continue to uptrend while here, peak troponin-T of 1.97. Will plan for further evaluation via transthoracic echocardiogram and left heart catheterization today. ?? TREATMENT PLAN: #NSTEMI, concerning for type I Telemetry monitoring Trend troponin Aspirin 81 mg (loaded with 324 mg at OSH 06/01/2021) Plavix 75 mg daily (loaded with 300 mg at OSH 06/01/2021) Continue IV Heparin infusionp Metoprolol tartrate 12.5 mg q 6 with holding parameters Start Lipitor 80 mg SLNTG prn EKG PRN for chest pain TTE 06/02/21, awaiting final interpretation NPO since midnight for coronary angiography, likely today ?? #Paroxymal afib Currently in SR Continue new metoprolol, as above Holding Eliquis - Continue IV heparin ?? #HTN BP: (91-108)/(53-63) Stable trends Continue losartan 50 mg daily ?? #COPD, 2L O2 dependent PRN samio jorge Code Status: Full code DVT Prophylaxis: IV Heparin infusion Discussed with MD Julio Samson PA-C Pager [phone] 06/02/2021 Associated attestation - Leonel Claire MD - 06/02/2021 2:15 PM EDT I have seen and examined the patient, have reviewed labs, pertinent images, and EKGs. I agree with the H&P, formulation, and plan as directed by Dr Garcia Patient presented with chest pain. Found to have significant disease in OM, which received PCI x 1.Non-obstructive disease in RCA and LAD. Ischemic CDM with preserved EF. Anticipate d/c tomorrow * Deandra Young RN - 06/02/2021 2:30 AM EDT 06/01/[id number] Adult Vital Signs SpO2 (!) 85 % (!) 87 % 94 % Oxygen Therapy O2 Device RA NC NC O2 Flow Rate (L/min) -- 1 L/min 2 L/min documented in this encounter H&P Notes * Elias Hassan APRN - 06/01/2021 11:37 AM EDT Images from the original note were not included. Cardiology Admission H&P Patient Name: Eliza Moya Date of : 1965 Age: 56 y.o. Hospital Admit Date: 06/01/2021 Inpatient Attending: Leonel Claire MD PCP: Sugey Vasquez APRN Presenting Diagnosis/Chief Complaint: NSTEMI Active Problem List: There are no hospital problems to display for this patient. History of Present Illness: Eliza Moya is a 56 year old F with a PMH COPD on 2L, PAD, HTN, paroxysmal AF, duodenal perforation s/p gastric bypass (05/2020) with hospital course complicated by critical limb ischemia s/p RLE amputation, sepsis, acute renal failure requiring CVVH, and small right LL PE started on AC. She presented to OSH early this morning for chest pain that developed last night after eating 4-5 meatballs. She was in her usual state of health up until this. Pain described as a burning sensation in her substernal area, did not radiate. The pain was associated with diaphoresis, nausea and vomiting, as well as eventual arm numbness from her wrist to her elbows bilaterally. She tried Maalox, a glass of milk, and yogurt however she had no relief and the pain persisted prompting her to call 911.At approximately 4 this morning, EMS transported her to [facility] where she ruled in for NSTEMI with HS troponins of 762 (ULN 51). Transfered to [facility] for further evaluation. Of note, she has a fairly moderate sized abdominal hernia and is due to establish care with surgery in a few weeks to discuss next steps. No currently scheduled surgeries. OSH labs: HS Trop 762 ( ULN 51) CPK 187 Na 135 K+ 4.2 Cl 98 Mag 2.1 BUN/creat 24/0.9 T bili 0.40 Alp 164 ALT 45 AST 25 WBC 15.7 H/H 14.2/45.1 Plt 516 CXR: No acute process Meds given: ASA 324 mg Plavix 300 mg IV heparin IV Zofran 4 mg Past Medical History: No past medical history on file. Surgical History/Problems: Past Surgical History: Procedure Laterality Date ??? CT PERITONEAL DRAINAGE 05/27/2020 CT Guided Drain Peritoneal 05/27/2020 [facility] RAD CAT SCAN ??? CT PERITONEAL DRAINAGE 05/27/2020 CT Guided Drain Peritoneal 05/27/2020 [facility] RAD CAT SCAN ??? CT PERITONEAL DRAINAGE 05/27/2020 CT Guided Drain Peritoneal 05/27/2020 [facility] RAD CAT SCAN ??? IR CHEST TUBE PLACEMENT BILATERAL 05/15/2020 IR Chest Tube Placement Bilateral 05/15/2020 Ricky Hollis MD [facility] INTERVENTIONL RAD ??? PRO AMPUTATE THIGH, OPEN CIRCULAR Right 05/11/2020 AMPUTATION, ABOVE-KNEE, OPEN, GUILLOTINE (WRVU 10.98) performed by Christine Montgomery MD at [facility] OR ??? PRO AMPUTATE THIGH, SECONDRY CLOSUR Right 06/13/2020 AMPUTATION, ABOVE-KNEE, SECONDARY CLOSURE OR SCAR REVISION (WRVU 7.29) performed by Christine Montgomery MD at [facility] OR ??? PRO CHOLECYSTOENTER+DONAVAN-EN-Y+GASTROENT N/A 05/12/2020 @DONAVAN-EN-Y WITH GASTROENTEROSTOMY (WRVU 24.21) performed by Meme Torres MD at [facility] OR ??? PRO EXPLORATORY OF ABDOMEN N/A 05/11/2020 @EXPLORATORY LAPAROTOMY, WITH/WITHOUT BIOPSY(S) (WRVU 12.54) performed by Meme Torres MD at [facility] OR ??? PRO GASTROJEJUNOSTOMY N/A 05/12/2020 @GASTROJEJUNOSTOMY (WRVU 22.53) performed by Meme Torres MD at [facility] OR ??? PRO REOPEN RECENT ABD EXPLORATORY N/A 05/12/2020 @EXPLORATORY LAPAROTOMY, REOPENING OF RECENT (WRVU 17.63) performed by Meme Torres MD at [facility] OR ??? PRO REOPEN RECENT ABD EXPLORATORY Midline 05/16/2020 @EXPLORATORY LAPAROTOMY, REOPENING OF RECENT (WRVU 17.63) performed by Nakul Vega MD at [facility] OR ??? PRO REOPEN RECENT ABD EXPLORATORY Midline 05/18/2020 @EXPLORATORY LAPAROTOMY, REOPENING OF RECENT (WRVU 17.63) performed by Marco Silver MD at [facility] OR ??? PRO REPAIR PERF DUOD/JIMENA ULC-WND/INJ N/A 05/11/2020 GASTRORRHAPHY, SUTURE OF PERFORATED, ULCER, WOUND, INJURY (WRVU 22.83) performed by Meme Torres MD at [facility] OR ??? PRO RESECT SMALL INTEST, SINGL RESEC/ANAS N/A 05/12/2020 @BOWEL RESECTION, SMALL INTESTINE SINGLE ANASTOMOSIS (WRVU 20.82) performed by Meme Torres MD at [facility] MAIN OR ??? PRO SUTURE ABD WALL-DEHIS/EVISCER Midline 05/20/2020 @SUTURE, SECONDARY, OF ABD WALL FOR EVISCERATION OR DEHISCENCE (WRVU 12.41) performed by Rima Akbar MD at [facility] MAIN OR ? ? PRO UNLISTED PX ABD PRTM&OMENTUM N/A 05/20/2020 SUTURE OMENTUM (WRVU 11.1) performed by Rima Akbar MD at [facility] MAIN OR ??? PRO UNLISTED PX ABDOMEN MUSCULOSKELETAL SYSTEM Midline 05/16/2020 WOUND CLOSURE, ABDOMINAL, PARTIAL W/ WOUND VAC (WRVU 6.39) performed by Nakul Vega MD at [facility] MAIN OR ??? PRO UPPER GI ENDOSCOPY, BIOPSY N/A 11/25/2020 EGD WITH BIOPSY (WRVU 2.49) performed by Kervin Rubio MD at [facility] ENDOSCOPY Significant Family History: No family history on file. Social History: Social History Socioeconomic History ??? Marital status: Spouse name: Not on file ??? Number of children: Not on file ??? Years of education: Not on file ??? Highest education level: Not on file Occupational History ??? Not on file Tobacco Use ??? Smoking status: Former Smoker Packs/day: 1.00 Years: 40.00 Pack years: 40.00 Types: Cigarettes Quit date: 05/2020 Years since quittin.0 ??? Smokeless tobacco: Never Used ??? Tobacco comment: never vape Vaping Use ??? Vaping Use: Never used Substance and Sexual Activity ??? Alcohol use: Yes Comment: none since 06/2020 ??? Drug use: Never ??? Sexual activity: Yes Comment: deferred Other Topics Concern ??? Not on file Social History Narrative ??? Not on file Social Determinants of Health Financial Resource Strain: Not on file Food Insecurity: Not on file Transportation Needs: Not on file Physical Activity: Not on file Housing Stability: Not on file REVIEW OF SYSTEMS: Review of Systems Constitutional: Negative for activity change, chills, fatigue, fever and unexpected weight change. Respiratory: Negative for cough and shortness of breath. Cardiovascular: Positive for chest pain. Negative for palpitations and leg swelling. Gastrointestinal: Positive for nausea (with chest pain) and vomiting. Negative for abdominal pain. Hernia Skin: Positive for wound (healed abdominal wound). Neurological: Negative for dizziness and light-headedness. All other systems reviewed and are negative. Medications: Medications Prior to Admission Medication Sig Dispense Refill Last Dose ??? Eliquis 5 mg Tablet TAKE ONE TABLET BY MOUTH TWICE A DAY ??? furosemide (Lasix) 20 mg Tablet TAKE ONE TABLET BY MOUTH EVERY DAY NEEDED ??? albuteroL 90 mcg/actuation HFA Aerosol Inhaler INHALE TWO PUFFS BY MOUTH EVERY 4 TO 6 HOURS NEEDED FOR COUGH ??? LORazepam (Ativan) 0.5 mg Tablet Take 0.5 mg by mouth every 6 hours as needed for Anxiety. ??? traZODone (Desyrel) 50 mg Tablet Take 0.5 tablets by mouth nightly. 90 tablet 3 ??? acetaminophen (Tylenol) 500 mg Tablet Take 2 tablets by mouth every 6 hours as needed for Pain or Fever. 30 tablet 1 ??? aspirin 81 mg Tablet, Chewable Take 81 mg by mouth daily. 30 tablet 3 ??? bisacodyL (Dulcolax) [address] 1 suppository rectally daily as needed. 60 suppository 3 ??? enoxaparin (Lovenox) 80 mg/0.8 mL Syringe Inject 0.7 mLs subcutaneously 2 times daily. ??? gabapentin (Neurontin) 300 mg Capsule Take 1 capsule by mouth 3 times daily. 90 capsule 12 ??? levothyroxine (Synthroid) 50 mcg Tablet Take 1 tablet by mouth every morning. 90 tablet 3 ??? melatonin 3 mg Tablet Take 3 tablets by mouth nightly. ??? metoclopramide (Reglan) 10 mg Tablet Take 1 tablet by mouth 4 times daily. 40 tablet 0 ??? multivitamin with minerals (THERA-M) 9 mg iron-400 mcg Tablet Take 1 tablet by mouth daily. ??? oxyCODONE (Roxicodone) 5 mg Tablet Take 1 tablet by mouth every 4 hours as needed for Pain. 12 tablet 0 ??? pantoprazole EC (Protonix) 40 mg Tablet, Delayed Release (E.C.) Take 1 tablet by mouth 2 times daily. 90 tablet 3 Allergies: Allergies Allergen Reactions ??? Doxycycline Other (See Comments) RADHA- unknown ??? Sulfa (Sulfonamide Antibiotics) Other (See Comments) RADHA- unknown ??? Vicodin [Hydrocodone-Acetaminophen] Other (See Comments) RADHA- unknown PHYSICAL EXAM: Last set of vital signs: There were no vitals taken for this visit. Physical Exam Vitals and nursing note reviewed. Constitutional: Appearance: She is obese. HENT: Head: Normocephalic. Cardiovascular: Rate and Rhythm: Normal rate and regular rhythm. Pulses: Normal pulses. Heart sounds: Normal heart sounds. Pulmonary: Effort: Pulmonary effort is normal. Breath sounds: Normal breath sounds. Abdominal: General: Bowel sounds are normal. Palpations: Abdomen is soft. Hernia: A hernia is present. Musculoskeletal: General: Deformity (right AKA) present. Skin: General: Skin is warm and dry. Capillary Refill: Capillary refill takes less than 2 seconds. Neurological: General: No focal deficit present. Mental Status: She is alert and oriented to person, place, and time. Psychiatric: Mood and Affect: Mood normal. Behavior: Behavior normal. Diagnostics: ECG: LABS: No results found for this or any previous visit (from the past 24 hour(s)). ASSESSMENT: Eliza Moya is a 56 year old F with a PMH COPD on 2L, PAD, HTN, paroxysmal AF, duodenal perforation s/p gastric bypass (05/2020) with hospital course complicated by critical limb ischemia s/p RLE amputation, sepsis, acute renal failure requiring CVVH, and small right LL PE started onAC. Presented to [facility] with chest pain and ruled in for NSTEMI with HS troponins of 762 (ULN 51). Transfered to [facility] for further evaluation. Will plan to cycle troponins. If down trending, could consider pharmacologic stress test vs cardiac catheterization. TTE tomorrow. TREATMENT PLAN: #NSTEMI Admit to cardiology Trend troponin Aspirin 81 mg (loaded with 324 mg at OSH 06/01/2021) Plavix 75 mg daily (loaded with 300 mg at OSH 06/01/2021) Heparin drip Metoprolol tartrate 12.5 mg q 6 with holding parameters Start Lipitor 80 mg SLNTG prn EKG PRN for chest pain TTE NPO after MN for pharmacologic NST vs coronary angiography #Paroxymal afib Currently in SR Starting metoprolol for above Holding Eliquis - Continue IV heparin #HTN Stable trends Continue losartan 50 mg daily #COPD, 2L O2 dependent PRN duo nebs #DVT prophylaxis: IV heparin #Code Status: Full Code Discussed with Leonel Claire MD Provider: Elias Hassan APRN Cardiovascular Medicine Provider #: [id number] 06/01/2021 Associated attestation - Leonel Claire MD - 06/02/2021 2:22 PM EDT I have seen and examined the patient, have reviewed labs, pertinent images, and EKGs. I agree with the H&P, formulation, and plan as directed by the Elias Hassan documented in this encounter Miscellaneous Notes * Care Management Discharge - Linda Willis RN - 06/03/2021 11:05 AM EDT CARE MANAGEMENT FINAL DISCHARGE NOTE Chart reviewed, care reviewed with primary team and at interdisciplinary rounds. Patient is medically ready for discharge to home. Needs for Transition of Care: Per discharge instructions. Plan for discharge is: Home w/o Services Outpatient Agency/Support Group Needs: None Resp Needs: Home O2 Company: [employer] Medical Status: *Current client Agency Referrals & Follow-up Care: Contact information for follow-up Cardiac Rehab, [facility] [address] [place] [address] Transportation: family or friend will provide *Ooxtzsog-az-uke/caregiver Denise [phone] Wheelchair van/Ambulance? No Functional status prior to admission: Assistive Equipment and Assistive Person Home Environment: Others in the home: child(carmita), adult (Son Twin and [id number] Denise are independent in IADLs including driving). Current Living Arrangements: home/apartment/condo. Accessibility Concerns:No concerns. Current Functional Ability: Assistive Person and Equipment DME used at home: walker - standard, wheelchair - manual, prosthesis (prosthetic leg) DME Needed at Discharge: None Patient is insured through: Primary Insurance: MEDICARE Payor: MEDICARE / Plan: MEDICARE PART A & B / Product Type: *No Product type* / Secondary Insurance: MEDICAID [place] Prescription Coverage: Preferred Pharmacy: [phone] - [place], [place] - [address] [place] [address] This plan was formulated with input from patient, (please identify family/friend involved if applicable) and team. All are in agreement with plan. * Consult Note - Ivone Garcia RN - 06/03/2021 9:55 AM EDT Eliza Moya was seen today by Cardiac Rehabilitation for: NSTEMI, s/p PCI to OM2 Activity evaluation - Patient currently using a wheelchair. Her right LE prosthesis is being worked on per patient. Sheis not sure when she will be back to using her prosthetic leg again. Educational packet regarding CAD, cardiac risk factors, and managing angina given to the patient. Heart diagram reviewed. Reviewed managing angina /use of sl nitroglycerin. Mediterranean diet guidelines briefly reviewed. Participation in an outpatient cardiac rehabilitation program at [facility] was discussed. Patient agrees to a referral to this program. She would like to attend cardiac rehab and use the arm bike until she is able to use her LE prosthesis again. The referral will be sent at discharge and the patient should be contacted by the Program within 1- 2 weeks from discharge. * Plan of Care - Julio Todd PA - 06/02/2021 5:31 PM EDT Post Cardiac Cath Note S: Patient reports no chest pain or shortness of breath. Patient reports no back pain or right wrist pain. O: Right ulnar artery access site is clean, dry, intact without hematoma or bleeding. TR band has been removed. CMS intact. Last value Range last 12 hrs Temperature Temp: 36.5 ??C (97.7 ??F) Temp: [36.5 ??C (97.7 ??F)] Heart Rate Heart Rate: 78 Heart Rate: [70-83] Blood Pressure BP: (!) 118/93 BP: (81-147)/(56-99) Respiratory Rate Resp: 20 Resp: [15-26] SpO2 SpO2: 97 % SpO2: [90 %-100 %] A/P. Post cardiac cath without complications. CARLEE Hall-C Pager #[phone] 06/02/2021 * Plan of Care - Julio Todd PA - 06/02/2021 11:16 AM EDT Images from the original note were not included. Cardiac cath Pre Procedure Note The indications, expected benefits and potential risks of heart catheterization were reviewed in detail with the patient. The potential for , heart attack, stroke, kidney failure, hemorrhage, allergic reaction, vascular complications and infection were reviewed in detail. The possibility of stenting and other percutaneous intervention with associated risk was reviewed. The possible need for emergent coronary artery bypass surgery was reviewed. After a discussion about the above, and havinganswered all questions posed, the patient was provided with a consent which was reviewed and signed. ASA: 3: Patient with severe systemic disease Mallampati: III: only the base of the uvula can be seen Sedation Plan: moderate (conscious sedation) Assessment and Plan: Proceed with cardiac cath today, see progress note from today for further details. CARLEE Bueno 06/02/2021 Pager [phone] * Brief Op Note - Toan Birch MD - 06/02/2021 9:36 AM EDT Images from the original note were not included. [facility] [place] 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 She presented to OSH early this morning for chest pain that developed last night after eating4-5 meatballs. She was in her usual state of health up until this. Pain described as a burning sensation in her substernal area, did not radiate. The pain was associated with diaphoresis, nausea and vomiting, as well as eventual arm numbness from her wrist to her elbows bilaterally. She tried Maalox, a glass of milk, and yogurt however she had no relief and the pain persisted prompting her to call 911. At approximately 4 this morning, EMS transported her to [facility] where she ruled in for NSTEMI with HS troponins of 762 (ULN 51). Transfered to [facility] for further evaluation. She isnow undergoing cardiac catheterization to evaluate her NSTEMI. CT angiogram with calcified PVD of aorta and Iliac/femoral system, small vessels. No palpable right radial, small right Ulnar. Large abdo men, open lower abdominal wound with hernia. We decided to proceed with Right Ulnar access. PROCEDURES PERFORMED: ?? Left heart cath, coronary angiogram. ?? PCI of the mid LCX and proximal OM2 99% lesion. ?? PROCEDURE: ?? The risks, benefits and alternatives of the procedures and moderate sedation were explained to the patient and informed consent was obtained. The patient was brought to the catheter builder and placed on the table. Time out was performed. The planned puncture sites were prepped and draped in the usual sterile fashion. The patient was sedated for the procedure. Cardiac catheterization performed. ?? Rt Radial artery access. The puncture site was infiltrated with 2 % lidocaine. The vessel was accessed using the modified Seldinger technique, a wire was threaded into the vessel, and a 6 Fr glidesheath slender was advanced over the wire into the vessel. Vasodilators and heparin were given after access obtained. ?? Left coronary artery angiography. A 5 Fr Satinder catheter was advanced to the aorta and positionedin the vessel ostia under fluoroscopic guidance. Angiography was performed in multiple projections.Intracoronary nitroglycerin was given in order to achieve maximal vasodilatation. ?? Right coronary artery angiography. A 5 Fr Satinder catheter was advanced to the aorta and positioned in the vessel ostia under fluoroscopic guidance. Angiography was performed in multiple projections. Intracoronary nitroglycerin was given in order to achieve maximal vasodilatation. ?? Weight-based heparin was given for procedural anticoagulation to maintain an ACT of 250 seconds by Hemochron throughout the case. ?? Percutaneous coronary intervention of the mid LCX and proximal OM2 99% lesion. ? Contrast given. 130 ml Optiray 350. ? At the end of the case, a Trans Radial Band was applied to the right wrist and the arterial sheath was removed with hemostasis obtained. The patient was transported to the post-procedure holding area in stable condition. ?? There were no procedural complications. ?? I provided direct owdi-hn-exlw monitoring of conscious sedation which was administered by an independent trained nurse. ?? RESULTS: Coronary circulation: The coronary circulation is??right dominant. She has small diffusely diseasedvessels. There was??severe 99% proximal OM2 disease:? Left main: Angiography showed??mild to moderate diffuse disease. ?? LAD: Angiography showed a 40% prox LAD lesion, and mild to??moderate diffuse disease.??The [id number] mild to moderate diffuse disease. ?? Circumflex: Angiography showed moderate 50% mid LCX lesion, then a proximal OM2 99% lesion, which is the culprit for her NSTEMI. The AV groove vessel showed moderate diffuse disease. ?? RCA: Angiography showed??a mid RCA 40% lesion and a distal RCA 40% lesion. The RPD and RPL have mild diffuse disease. ? PCI REPORT: Pre: Post: PCI of the mid LCX and proximal OM2 99% lesion: A successful trans ULNAR PCI was performed on the 99% lesion in the mid LCX and prox OM2. We used a6 Fr IKARI Left 3.5 guide. We administered heparin as the anticoagulant and loaded Plavix as the antiplatelet agent. We used a RunThrough wire to cross the lesion. We dilated the lesion using a 2.0 x12 mm balloon to 10 sandra. We then delivered a 2.25 x 12 mm Synergy XD BENSON stent in the lesion and dep loyed it at 12 sandra for a 90 sec long inflation. We then used the stent balloon to post-dilate the lesion to 12 sandra pressure. Following intervention there was 0% residual stenosis. There were no site complications. ?? SUMMARY AND THERAPEUTIC RECOMMENDATIONS: ??? Eliza Moya presents with a NSTEMI. She had small and diffusely diseased vessels and her culprit was a 99% lesion in the mid LCX and prox OM2, which we stented using a 2.25 x 12 mm Synergy XDDES stent. ??? Please continue Aspirin 81 mg daily, Plavix 75 mg daily and high intensity statin. Her Eliquis may be resumed. Please continue triple therapy for a month, then discontinue the aspirin - continue Plavix 75 mg + Eliquis 5 mg BID. After a year Plavix may be replaced with Aspirin 81 mg. ??? The case was reviewed and discussed with the patient and Dr. Grant Claire. ??? I advised cardiac rehab. ??? I was present during the entire procedure and personally dictated or confirmed the above report. Toan Birch MD MS KATHERINE 06/02/2021 1:00 PM * Initial Assessments - Marti Anthony RN - 06/01/2021 5:58 PM EDTSummary: No CM discharge needs identified Office of Care Management Initial Assessment Medical record reviewed. 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 Presented to [facility] with chest pain and ruled in for NSTEMI with HS troponins of 762(ULN 51). Transfered to [facility] for further evaluation. Will plan to cycle troponins. If down trending, could consider pharmacologic stress test vs cardiac catheterization. TTE tomorrow. (from 06/01/21 Cardiology H&P) Last COVID test: Lab Results Component Value Date [id number] Not Detected 06/01/2021 Present on Admission: ??? NSTEMI (non-ST elevated myocardial infarction) Hospitalizations Within the Past 30 Days: other (see comments) (Transferred from [facility] ([facility] Patient receiving hospital care under Inpatient status. Admission order reviewed. Primary Insurance on file: [place]ICAID [place] Secondary Insurance on file: None Primary care provider on file: Nya Hernandez, CONTRACT ADMIN [phone] Pharmacy: No Pharmacies Listed Advance Care Planning: Attempt Cardiopulmonary Resuscitation - Inpatient Received -Advanced Directive: Yes, on file Who is your DPOA-HC?: Child (Son Twin of [facility] [phone] is primary DPOAH; yaesadzq-ks-zve Denise [phone] secondary.) Current Functional Ability: Assistive Equipment and Assistive Person Functional Status Prior to Admission: Assistive Equipment and Assistive Person Home Environment: Others in the home: child(carmita), adult (Son Twin and wsnhgazr-zs-dja Denise are independent in IADLs including driving). Current Living Arrangements: home/apartment/condo. Accessibility Concerns:No concerns. Current DME: walker - standard, wheelchair - manual, prosthesis (prosthetic leg) [address] [facility] [address] Social & Family Supports: All names listed below confirmed with lavon Murcia and odpfomrd-zq-dgy Denise as current and correct Extended Emergency Contact Information Primary Emergency Contact: Twin Moya Address: [address] [place] [address] [facility] Home Phone: [phone] Mobile Relation: Child Secondary Emergency Contact: TONI MOYA Mobile Relation: Child Current Care Provided by: self, child(carmita) (Zbujwfcl-ay-ney Denise assists at home) Transportation: no concerns Transportation Anticipated: family or friend will provide (Rhkotadm-la-ehq/caregiver Denise) Assessment: Patient with no apparent RNCM/SW needs at this time. No housing, transportation, insurance, resources concerns identified at this time. Supports in place to achieve a safe post-hospital transition. No identified barriers to accessing necessary care and/or follow-up after discharge. Plan: Patient to d/c to home via private transport when medically ready. Registered Nurse Community Development Planner / Snaker Tractor Driver will continue to follow patient???s progress and remain available if situation changes for coordination of care, psychosocial support and/or discharge planning. documented in this encounter Plan of Treatment Scheduled Orders Name Type Priority Associated Diagnoses Orde r Schedule EKG 12 Lead ECG Routine Non-ST elevation myocardial infarction (NSTEMI) One Time for 1 Occurrences starting 06/02/2021 until 06/02/2021 Scheduled Referrals Name Type Priority Associated Diagnoses Orde r Schedule Referral to Cardiac Rehab Outpatient Referral Routine Non-ST elevation myocardial infarction (NSTEMI) Ordered: 06/03/2021 documented as of this encounter Procedures Procedure Name Priority Date/Time Associated Diagnosis Comments EKG 12-LEAD Routine 06/03/2021 6:18 AM EDT Non-ST elevation myocardial infarction (NSTEMI) HC VENIPUNCTURE Routine 06/03/2021 4:00 AM EDT HEMOGRAM Routine 06/03/2021 4:00 AM EDT DIFFERENTIAL, AUTOMATED Routine 06/04/19 4:00 AM EDT HC CBC,PLT & AUTO DIFF Routine 4:00 AM EDT EKG 12-LEAD Routine 06/02/2021 1:00 PM EDT Non-ST elevation myocardial infarction (NSTEMI) CARDIAC CATHETERIZATION Routine 06/03/19 12:50 PM EDT ECHO COMPLETE W CONTRAST Routine 06/02/2021 9:39 AM EDT Non-ST elevation myocardial infarction (NSTEMI) EKG 12-LEAD Routine 06/02/2021 6:16 AM EDT Non-ST elevation myocardial infarction (NSTEMI) HC UNFRACTIONATED HEPARIN (HEP UFH) Routine 06/02/2021 3:14 AM EDT BMP W/FASTING GLUCOSE Routine 06/02/2021 3:14 AM EDT HEMOGRAM Routine 06/02/2021 3:14 AM EDT DIFFERENTIAL, AUTOMATED Routine 06/03/19 3:14 AM EDT HC CBC,PLT & AUTO DIFF Routine 3:14 AM EDT HC TROPONIN T STAT 06/02/2021 3:14 AM EDT HC TRIGLYCERIDES Routine 06/02/2021 3:14 AM EDT HC LDL CHOLESTEROL, DIRECT Routine 06/02/2021 3:14 AM EDT HC CHOLESTEROL Routine 06/02/2021 3:14 AM EDT HC HEMOGLOBIN A1C Routine 06/02/2021 3:1 4 AM EDT HC UNFRACTIONATED HEPARIN (HEP UFH) Routine 06/01/2021 9:01 PM EDT HC VENIPUNCTURE STAT 06/01/2021 9:01 PM EDT HC UNFRACTIONATED HEPARIN (HEP UFH) Routine 06/01/2021 2:52 PM EDT HEMOGRAM Routine 06/01/2021 2:52 PM EDT DIFFERENTIAL, AUTOMATED Routine 06/02/19 2:52 PM EDT HC CBC,PLT & AUTO DIFF Routine 2:52 PM EDT HC VENIPUNCTURE STAT 06/01/2021 2:52 PM EDT EKG 12-LEAD STAT 06/01/2021 1:47 PM EDT Non-ST elevation myocardial infarction (NSTEMI) RAPID COVID-19 PCR ([facility]) Routine 06/01/2021 1:27 PM EDT documented in this encounter Results * EKG 12 Lead (06/03/2021 6:18 AM EDT) Ventricular rate 65 BPM MUSE SYSTEM Atrial Rate 65 BPM MUSE SYSTEM P-R Interval 146 ms MUSE SYSTEM QRS Duration 86 ms MUSE SYSTEM Q-T Interval 428 ms MUSE SYSTEM QTC Calculated (Bezet) 445 ms MUSE SYSTEM Calculated P Woodstock 40 degrees MUSE SYSTEM Calculated R [place] 19 degrees MUSE SYSTEM Calculated T [place] 92 degrees MUSE SYSTEM INTERPRETATION Normal sinus rhythm Normal ECG When compared with ECG of 02-JUN-2021 13:00, No significant change was found I personally reviewed the tracing and edited the fellows interpretation Confirmed by fellow Chito Reynolds ([id number]) on 06/03/2021 11:30:57 AM Confirmed by MD Trammell Danette ([id number]) on 06/03/2021 11:34:11 AM MUSE SYSTEM 06/03/2021 6:18 AM EDT 06/03/2021 11:34 AM EDT Elias Hassan APRN ECG ORDERABLES MUSE SYSTEM * (ABNORMAL) Differential, Automated (06/03/2021 4:00 AM EDT) Pathologist [facility] Neutrophil % 54.2 % [facility] Neutrophil Absolute 6.52(H) 1.70 - 6.10 x10(3)/mc L [facility] Lymph % 28.2 % [facility] Lymphocytes Abs 3.4(H) 0.9 - 3.2 x10(3)/mc L [facility] Monocyte % 9.3 % [facility] Monocyte Abs 1.1(H) 0.3 - 0.9 x10(3)/mc L [facility] Eos % 5.5 % [facility] Eosinophils Abs 0.7(H) 0.0 - 0.4 x10(3)/mc L [facility] Basophil % 1.2 % [facility] Baso Absolute 0.2(H) 0.0 - 0.1 x10(3)/mc L [facility] Immature Gran % 1.60 % [facility] Comment: Immature granulocytes(IG's)percentage and absolute count will include metamyelocytes, myelocytes, and promyelocytes. Blood smears from CBCs yielding IG's will be scanned manually for concordance. If this scan disagrees with the automated IG or if promyelocytes are noted, a manual differential will be performed. Immature Gran Absolute 0.19(H) 0.00 - 0.04 x10(3)/mc L [facility] Blood 06/03/2021 4:00 AM EDT 06/03/2021 4:38 AM EDT Narrative Resulting Agency Comment Spec In Lab Elias Hassan APRN HEMATOLOGY ORDERABLE S [facility] [place] [address] * (ABNORMAL) Hemogram (06/03/2021 4:00 AM EDT) White Blood Cell 12.0(H) 4.0 - 9.5 x10(3)/mc L [facility] Red Blood Cell 4.57 4.00 - 5.21 x10(6)/mc L [facility] Hemoglobin 12.6 11.7 - 15.5 g/dL [facility] Hematocrit 40.4 35.7 - 45.8 % [facility] Mean Cell Volume 88.4 82.6 - 94.4 fL [facility] Mean Cell Hemoglobin 27.6 27.1 - 32.0 pg [facility] Mean Cell Hemoglobin Concentration 31.2(L) 31.7 - 35.0 g/dL [facility] Platelet 418(H) 145 - 357 x10(3)/mc L [facility] RDW Standard Deviation 46.3(H) 37.0 - 46.0 fL [facility] RDW coefficient of variation 14.5(H) 11.5 - 14.1 % [facility] Mean Platelet Volume 9.2 7.6 - 12.9 fL [facility] NRBC% auto 0.0 % [facility] NRBC Absolute 0.000 0.000 - 0.000 x10(3)/mc L [facility] Blood 06/03/2021 4:00 AM EDT 06/03/2021 4:38 AM EDT Narrative Resulting Agency Comment Spec In Lab Elias Hassan APRN HEMATOLOGY ORDERABLE S [facility] [place] [address] * (ABNORMAL) BMP w/fasting Glucose (06/03/2021 4:00 AM EDT) Glucose Fasting 114(H) 65 - 99 mg/dL [facility] Comment: ?Fasting* Glucose Interpretive Criteria Normal ?65-99 mg/dL Impaired Fasting glucose ?100-125 mg/dL Consistent with Diabetes Mellitus ? >or= 126 mg/dL *Fasting is defined as no caloric intake for at least 8 hours In the absence of unequivocal hyperglycemia a plasma glucose value of >or= 126 mg/dL should be repeated on a subsequent day. Diagnosis and Classification of Diabetes Mellitus, Position Statement from the [place] [employer]. ??Diabetes Care, Volume 33, Supplement 1, Mar 2009 Blood Urea Nitrogen 16 8 - 18 mg/dL [facility] Creatinine 0.78 0.70 - 1.20 mg/dL [facility] Sodium 138 135 - 145 mmol/L [facility] Potassium 4.3 3.5 - 5.0 mmol/L [facility] Comment: Please note: ??Patients with WBC >100,000 may have falsely elevated Potassium levels. ??For accurate Potassium quantification in these patients send serum separator tube (gold top) for subsequent determinations. ??Contact the Clinical Chemistry Laboratory if there are any questions. Chloride 104 98 - 107 mmol/L [facility] Carbon Dioxide 22 22 - 31 mmol/L [facility] Anion Gap 12 5 - 15 mmol/L [facility] Calcium 8.5 8.5 - 10.5 mg/dL [facility] Est Glomerular Filtration Rate 84 >=60 mL/min/1. 73 m?? [facility] Comment: This patient? s estimated glomerular filtration rate (eGFR) is between 84 mL/min/1.73 m2 (patients with less muscle mass) and 97 mL/min/1.73 m2 (patients with more muscle mass) as determined by the CKD-EPI equation. Assessment of eGFR is not appropriate when creatinine concentrations are rapidly changing. For clinical decisions where creatinine clearance will affect therapy, a 24-hour urine creatinine clearance may be advised. Assignment of CKD stage 1 - 5 for patients with an eGFR near the transition point between stages may be based on clinical assessment of muscle mass and symptoms in addition to eGFR. Blood 06/03/2021 4:00 AM EDT 06/03/2021 4:38 AM EDT Narrative Resulting Agency Comment Spec In Lab Elias Hassan APRN CHEMISTRY ORDERABLES [facility] [place] [address] * EKG 12 Lead (06/02/2021 1:00 PM EDT) Ventricular rate 71 BPM MUSE SYSTEM Atrial Rate 71 BPM MUSE SYSTEM P-R Interval 158 ms MUSE SYSTEM QRS Duration 84 ms MUSE SYSTEM Q-T Interval 418 ms MUSE SYSTEM QTC Calculated (Bezet) 454 ms MUSE SYSTEM Calculated P [place] 77 degrees MUSE SYSTEM Calculated R [place] 57 degrees MUSE SYSTEM Calculated T [place] 93 degrees MUSE SYSTEM INTERPRETATION Normal sinus rhythm Normal ECG When compared with ECG of 02-JUN-2021 06:16, No significant change was found Confirmed by MD Garrett, Rima Mclaughlin ([id number]) on 06/02/2021 1:42:50 PM MUSE SYSTEM 06/02/2021 1:00 PM EDT 06/02/2021 1:42 PM EDT Leonel Claire MD ECG ORDERABLES MUSE SYSTEM * CARDIAC CATHETERIZATION (06/02/2021 12:50 PM EDT) Anatomical Region Laterality Modality Other Narrative 06/02/2021 1:14 PM EDT ?[facility] ? Cardiac Catheterization/Intervention Report ? Patient Name: Moya, Eliza ? Procedure Date: 06/02/2021 ? A #: [id number] ? Primary Physician: Birch, Toan P ? Case #: [id number] ? File Name: [id number] ? Catheterization Order Number: [id number] ? [facility] ? Final Report [place], [place] ? Patient Name: ? Eliza Moya ?ID#: ?[id number] ? : ?1965 ? Procedure Date: ? June 02, 2021 ? Case #: ? [id number] ? Room: ? 2 ? Case Physician: ? Toan Birch M.D. ?Start: ?12:09 ?Fellow: ? Ej Tee M.D. ?Admission: ??06/01/2021 ? Referring Physician: ??Nya ??H Chute, CONTRACT ADMIN ? Procedures: ?* Coronary Angiography ?* Coronary Stent Insertion ?* Vascular Ultrasound ? History ?Eliza Moya is a 56 year old woman. She has hypertension and a family ?history of coronary artery disease. The patient's smoking status is ?Former. She has hypercholesterolemia. The patient is status post an acute ?non-ST elevation myocardial infarction. She has a history of atrial ?fibrillation/atrial flutter. The patient has a history of peripheral ?vascular disease with intermittent claudication and critical limb ?ischemia. She also has a history of chronic obstructive pulmonary ?disease. Prior to the initiation of this procedure, the patient was ?designated as ASA Class III. The CSHA clinical frailty scale is 4: ?Vulnerable. ? Diagnostic Tests: ?Prior Coronary Angiography: ? LV ejection fraction within 6 months is 60%. ?Electrocardiography: ? EKG was assessed by ECG. EKG was Abnormal. EKG showed other ? abnormality. ?Medications Prior to Procedure: ? Aspirin, Angiotensin II Receptor Pascual, Beta Pascual and Statin. ? Indications for Diagnostic Cath: ?The priority of the diagnostic procedure was Urgent. The indication for ?the catheter builder visit is ACS greater than 24 hrs. Chest pain symptom ?assessment was: Typical Angina. ? Technique: ?A 5 SLFr sheath was inserted in the right ulnar artery utilizing the ?Seldinger technique. The left coronary artery was injected utilizing a ?5Fr IL 3.5 catheter. A 5Fr IL 3.5 catheter was used to inject the right ?coronary artery. Coronary stent insertion was performed and the equipment ?utilized will be described in the intervention summary section. 8,000 ?units of heparin were administered. A total of 100cc of Omnipaque were ?opened, 83cc of Omnipaque were administered and 17cc of Omnipaque were ?wasted. Radiation: Fluoro time was 8.2 minutes, dose area product was ?61,412 mGYcm2 and air kerma was 1,137 mGY. See the case log for ?additional details. ?The patient received the following medications prior to and during the ?procedure: ? Unfractionated Heparin and Clopidogrel. ? Hemodynamics: ?Left Heart Pressures ? Resting: ? Syst Diast ? EDP ?a ?v ? m ?Ao 104 ?? 52 ?74 ? Coronary Angiography: ?Dominance: Right ?Left Main ? There was mild diffuse (<=25% stenosis) disease of the entire vessel ? segment of the left main artery. ?Left Anterior Descending ? There was mild diffuse (<=25% stenosis) disease of the entire vessel ? segment of the left anterior descending artery (LAD). ?Left Circumflex ? There was mild diffuse (<=25% stenosis) disease of the entire vessel ? segment of the left circumflex artery (LCX). ??The proximal segment ? of the LCX had a single discrete 40% stenosis. ? There was a 99% single discrete stenosis of the ostial segment of ? the second obtuse marginal branch (OM2) of the LCX. ??The OM2 was ? small. ?Right Coronary Artery ? There was mild diffuse (<=25% stenosis) disease of the entire vessel ? segment of the right coronary artery (RCA). ??The mid segment of the ? RCA had 40% stenosis. ??There also was a 40% stenosis of the distal ? segment of the RCA. ? Indication for Intervention: ?Coronary intervention was indicated for primary therapy for an acute ?myocardial infarction. The priority for the procedure was Urgent. The ?NCDR indication for the procedure was NSTE-ACS. LVEF within one week was ?60%. Syntax Score was Low. ? Intervention Summary: ?Second Obtuse Marginal Branch of the LCX ? Ostial 99% ? Stent insertion was performed on the 99% stenosis in the ? ostial segment of the OM2. This was a de perez lesion. ? According to the ACC/AHA classification system, this lesion ? was a type B1 low risk lesion. Primary prevention of ? restenosis was the indication for stent insertion. A guidewire ? was placed across this lesion. Vessel flow pre intervention ? was HAYDEE 2. Lesion length was 12mm. ? Stent insertion was accomplished through a 6 Fr. Ikari Left ? 3.5 guide. ??The lesion was predilated with a 2.00mm EUPHORA 12 ? MM balloon with a maximum inflation pressure of 14 ? atmospheres. ??A premounted 2.25 x 12 mm Synergy XD (BENSON) was ? deployed with a maximum inflation pressure of 12 atmospheres. ? The final outcome was defined as successful. A coronary ? arteriolar vasodilator was administered as part of the ? intervention on this lesion. There was no residual stenosis ? following this intervention. The final HAYDEE flow was 3. ? PCI of the mid LCX and proximal OM2 99% lesion: ? A successful trans ULNAR PCI was performed on the 99% lesion ? in the mid LCX and prox OM2. We used a 6 Fr IKARI Left 3.5 ? guide. We administered heparin as the anticoagulant and loaded ? Plavix as the antiplatelet agent. We used a RunThrough wire to ? cross the lesion. We dilated the lesion using a 2.0 x 12 mm ? balloon to 10 sandra. We then delivered a 2.25 x 12 mm Synergy XD ? BENSON stent in the lesion and deployed it at 12 sandra for a 90 sec ? long inflation. We then used the stent balloon to post- dilate ? the lesion to 12 sandra pressure. Following intervention there ? was 0% residual stenosis. There were no site complications. ? Vascular Access: ?Vascular Access Management: ? Mechanical Compression of the right ulnar artery access site was ? performed. ? Dual Antiplatelet (DAPT) Recommendations: ?Drug eluting stent (BENSON) inserted. ?P2Y12 Loading dose administered prior to arrival in the [facility]. ?Recommended anti-platelet/anti-thrombotic regimen: ?Continue aspirin 81 mg daily for 1 month then stop. Restart aspirin 81 mg ?daily in 12 months and continue unless contraindicated. ?Continue clopidogrel 75 mg daily for 12 months then stop. ?Continue apixaban 5 mg twice daily for indefinitely. ?These recommendations are made at the time of the intervention. Patient ?and provider preferences or a changing clinical situation may require ?modification of this regimen. Consult [facility] for ?questions. ?The 1 year bleeding risk as calculated by the PRECISE DAPT score is High ?risk. ?High Bleeding Risk - Anticoagulation and DAPT: ?- ??Assess ischemic and bleeding risks using validated risk predictors ?(e.g. CHADS2-VASC, HAS-BLED, PRECISE DAPT, DAPT Score) ?- ??Keep anticoagulant and antiplatelet therapy duration as short as ?possible ?- ??Consider a target INR of 2.0-2.5 if warfarin is used ?- ??Clopidogrel is the P2Y12 inhibitor of choice ?- ??Use low-dose (less than 100 mg daily) aspirin if aspirin is used ?- ??PPIs (pantoprazole preferred) should be used in patients with a ?history of gastrointestinal bleeding and are reasonable to use in ?patients with increased risk of gastrointestinal bleeding ?- ??(Rec javier 2.1 ??21 Jul 2019) ? Conclusions: ?* One vessel coronary artery disease (LCX) ?* Successful stent insertion of the ostial OM2 lesion ?* See Dual Antiplatelet (DAPT) Recommendations above ? Complications/Events: ?The patient had no complications during these procedures. ? Comments: ?SUMMARY AND THERAPEUTIC RECOMMENDATIONS: ?Eliza Moya presents with a NSTEMI. She had small and diffusely ?diseased vessels and her culprit was a 99% lesion in the mid LCX and prox ?OM2, which we stented using a 2.25 x 12 mm Netsocket XD BENSON stent. ?Please continue Aspirin 81 mg daily, Plavix 75 mg daily and high ?intensity statin. Her Eliquis may be resumed. Please continue triple ?therapy for a month, then discontinue the aspirin - continue Plavix 75 mg ?+ Eliquis 5 mg BID. After a year Plavix may be replaced with Aspirin 81 ?mg. ?The case was reviewed and discussed with the patient and Dr. Grant Claire. ?I advised cardiac rehab. ?The attending physician was present for the entire procedure. ?Dr. Toan Birch M.D. was present during the moderate sedation intraservice ?time as documented by the sedation nurse. ??Case time = 00:36. ?Dr. Toan Birch M.D. performed the coronary angiography, vascular ?ultrasound and stent insertion-coronary. ? Toan P Birch, M.D. ? Electronically Signed by: Toan P Birch, M.D. ? Report Finalized: 06/02/2021 ??13:07 ? Report Last Ammended: 06/04/2021 ??07:54 ? Toan Birch MD CARDIAC CATH ORDERAB LES * ECHO COMPLETE W CONTRAST (06/02/2021 9:39 AM EDT) Anatomical Region Laterality Modality Other 06/02/2021 7:54 AM EDT Narrative 06/02/2021 10:05 AM EDT ?[facility] ?[address] ? [place] [address] ?Voice: ?Fax: ? Echocardiogram Report Name: ELIZA MOYA ?Study Date: 06/02/2021 07:54 AMBP: 108/63 mmHg ? [facility] : 1965 ? Height: 160 cm ? Account: [id number] Age: 56 yrs ? Weight: 93 kg Gender: Female ?BSA: 2.0 m2 Ordering Physician: ELIAS HASSAN Referring Physician: RIMA GRIMM Performed By: Danie Darnell RDCS Reason For Study: Cardiac disease History: NSTEMI Exam Location: [facility]. Interpretation Summary 1. Wall thickness is mildly increased. Left ventricular systolic function is normal. The left ventricular ejection fraction is 60% by Garcia's biplane. The basal to mid inferolateral wall and mid anterolateral segment are hypokinetic. 2. Right ventricle is normal in size and function. 3. No significant valvular disease noted on this study. See report for additional findings. Compared to the prior study 06/2020 the regional wall motion abnormalities in the circumflex distribution are new. Procedure Complete-[id number]. Image enhancement Optison was used for both Doppler and ventricular definition. Suboptimal quality. There is normal sinus rhythm. Left Ventricle Left ventricle is of normal size. No membranous ventricular septal defect. Wall thickness is mildly increased. Left ventricular systolic function is normal. The left ventricular ejection fraction is 60% by Garcia's biplane. Inferolateral wall is hypokinetic. Right Ventricle The right ventricle is of normal size. Right ventricular systolic function is normal. Left Atrium The left atrium is normal. There is no evidence for a patent foramen ovale. Right Atrium The right atrium is normal. Aortic Valve The aortic valve is structurally normal. There is no aortic stenosis. There is trace aortic regurgitation. Mitral Valve The mitral valve is structurally and functionally normal. There is trace mitral regurgitation. Tricuspid Valve The tricuspid valve is structurally normal. There is trace tricuspid regurgitation. Pulmonic Valve The pulmonic valve appears to be structurally and functionally normal. There is trace pulmonic valve regurgitation. Great Arteries The aortic root is of normal size. No abnormalities are identified. Ascending aorta is normal in size. Venous Inferior vena cava collapse greater than 50% with respiration. Inferior vena cava is dilated. Pericardium/Pleural The pericardium appears normal. Hemodynamics The right ventricular systolic pressure is normal. Left ventricular diastolic function is normal. Left ventricular filling pressure is normal. Ejection Fraction ?2D Measurements ? Volumes LV Biplane EF: 60.4 % ? IVSd: 1.3 cm ? LA Volume Index: ?LVIDd: 4.5 cm ?LVIDs: 3.5 cm ?27.2 ml/m2 ?LVPWd: 1.1 cm ?EDV Biplane: 93.3 ml ? EDV Biplane Index: 47.7 ?LV mass(C)d: 198.9 grams ? ESV Biplane: 36.9 ml ?LV mass(C)dI: 101.8 grams/m2 ?? ESV Biplane Index: 18.9 ?Ao root diam: 2.7 cm ? SV(LVOT): 84.1 ml ?Ao root diam index: 1.4 ?LV Stroke Volume: 84.1 ml ?asc Aorta Diam: 3.1 cm ?LVOT diam: 2.0 cm ?SI(LVOT): 43.1 ml/m2 Doppler TR max josh: 238.8 cm/sec RVSP(TR): 30.8 mmHg MV E max josh: 76.0 cm/sec MV A max josh: 80.7 cm/sec MV E/A: 0.94 MV dec time: 0.14 sec Lat Peak E' Josh: 7.3 cm/sec E/ e' (lat): 10.5 Med Peak E' Josh: 7.6 cm/sec E/e' (med): 10.0 E/e' Average: 10.2 I ?WMSI = 1.19 ? % Normal = 81 ?There is a small ?sized posterior ?wall motion ?abnormality with ?hypokinesis of ?the segments. ?Segments ??Size X - Cannot ?2 - ?4 - ?1-2 ? small Interpret ?1 - Normal ?? Hypokinetic 3 - Akinetic Dyskinetic ?? 3-5 ? moderate 5 - ? 6-14 ?large Aneurysmal ?15-16 ?? diffuse Procedure Note April Covarrubias MD - 06/02/2021 [place] [address] Voice: Fax: Echocardiogram Report Name: ELIZA MOYA Study Date: 207:54 AMBP: 108/63 mmHg Patient Location:[facility]A : 1965 Height: 160 cm Account: [id number] Age: 56 yrs Weight: 93 kg Gender: Female BSA: 2.0 m2 Ordering Physician: ELIAS HASSAN Referring Physician: RIMA GRIMM Performed By: Danie Darnell RDCS Reason For Study: Cardiac disease History: NSTEMI Exam Location: [facility]. Interpretation Summary 1. Wall thickness is mildly increased. Left ventricular systolic functionis normal. The left ventricular ejection fraction is 60% by Garcia'sbiplane. The basal to mid inferolateral wall and mid anterolateral segment arehypokinetic. 2. Right ventricle is normal in size and function. 3. No significant valvular disease noted on this study. See report for additional findings. Compared to the prior study 06/2020 the regional wall motion abnormalitiesin the circumflex distribution are new. Procedure Complete-[id number]. Image enhancement Optison was used for both Doppler and ventricular definition. Suboptimal quality. There is normal sinusrhythm. Left Ventricle Left ventricle is of normal size. No membranous ventricular septal defect.Wall thickness is mildly increased. Left ventricular systolic function isnormal. The left ventricular ejection fraction is 60% by Garcia's biplane.Inferolateral wall is hypokinetic. Right Ventricle The right ventricle is of normal size. Right ventricular systolic functionis normal. Left Atrium The left atrium is normal. There is no evidence for a patent foramenovale. Right Atrium The right atrium is normal. Aortic Valve The aortic valve is structurally normal. There is no aortic stenosis.There is trace aortic regurgitation. Mitral Valve The mitral valve is structurally and functionally normal. There is tracemitral regurgitation. Tricuspid Valve The tricuspid valve is structurally normal. There is trace tricuspid regurgitation. Pulmonic Valve The pulmonic valve appears to be structurally and functionally normal.There is trace pulmonic valve regurgitation. Great Arteries The aortic root is of normal size. No abnormalities are identified.Ascending aorta is normal in size. Venous Inferior vena cava collapse greater than 50% with respiration. Inferiorvena cava is dilated. Pericardium/Pleural The pericardium appears normal. Hemodynamics The right ventricular systolic pressure is normal. Left ventriculardiastolic function is normal. Left ventricular filling pressure is normal. Ejection Fraction 2D Measurements Volumes LV Biplane EF: 60.4 % IVSd: 1.3 cm LA VolumeIndex: LVIDd: 4.5 cm LVIDs: 3.5 cm 27.2 ml/m2 LVPWd: 1.1 cm EDV Biplane: 93.3ml EDV BiplaneIndex: 47.7 LV mass(C)d: 198.9 grams ESV Biplane: 36.9ml LV mass(C)dI: 101.8 grams/m2 ESV BiplaneIndex: 18.9 Ao root diam: 2.7 cm SV(LVOT): 84.1ml Ao root diam index: 1.4 LV Stroke Volume:84.1 ml asc Aorta Diam: 3.1 cm LVOT diam: 2.0 cm SI(LVOT): 43.1ml/m2 Doppler TR max josh: 238.8 cm/sec RVSP(TR): 30.8 mmHg MV E max josh: 76.0 cm/sec MV A max josh: 80.7 cm/sec MV E/A: 0.94 MV dec time: 0.14 sec Lat Peak E' Josh: 7.3 cm/sec E/ e' (lat): 10.5 Med Peak E' Josh: 7.6 cm/sec E/e' (med): 10.0 E/e' Average: 10.2 I WMSI = 1.19 % Normal = 81 There is asmall sizedposterior wallmotion abnormality with hypokinesis of thesegments. SegmentsSize X - Cannot 2 - 4 - 1-2small Interpret 1 - Normal Hypokinetic 3 - Akinetic Dyskinetic 3-5moderate 5 - 6-14large Aneurysmal 15-16diffuse Elias Hassan APRN ECHO ORDERABLES * EKG 12 Lead (06/02/2021 6:16 AM EDT) Ventricular rate 71 BPM MUSE SYSTEM Atrial Rate 71 BPM MUSE SYSTEM P-R Interval 152 ms MUSE SYSTEM QRS Duration 84 ms MUSE SYSTEM Q-T Interval 434 ms MUSE SYSTEM QTC Calculated (Bezet) 471 ms MUSE SYSTEM Calculated P [place] 75 degrees MUSE SYSTEM Calculated R [place] 33 degrees MUSE SYSTEM Calculated T [place] 97 degrees MUSE SYSTEM INTERPRETATION Normal sinus rhythm Normal ECG When compared with ECG of 01-JUN-2021 13:47, (unconfirmed) No significant change was found I personally reviewed the tracing and edited the fellows interpretation Confirmed by fellow Chito Reynolds ([id number]) on 06/02/2021 10:00:28 AM Confirmed by MD Minor, Charlie ([id number]) on 06/02/2021 10:02:38 AM MUSE SYSTEM 06/02/2021 6:16 AM EDT 06/02/2021 10:02 AM EDT Elias Hassan APRN ECG ORDERABLES MUSE SYSTEM * Heparin (unfractionated) Level (06/02/2021 3:14 AM EDT) UF Heparin 0.23 IU/mL [facility] Comment: Specimen drawn more than one hour prior to testing. Results may not be reliable for heparin monitoring. Result may be falsely low. Heparin (anti-Xa) levels should be determined in a plasma sample that has been drawn 6 hours after a dose change to approximate steady-state for continuous heparin infusions. Indication specific Heparin (anti-Xa) levels based on order set selection: Acute DVT or PE treatment: 0.3 ? 0.7 IU/mL Thrombosis Prevention (eg. atrial fibrillation, renato-procedural bridging, mechanical valves): 0.3 ? 0.7 IU/mL Acute Coronary Syndrome: 0.3 ? 0.7 IU/mL Stroke Indications: 0.3 ? 0.5 IU/mL Ultra-low intensity (select indications in cardiac surgery): 0.1 ? 0.3 IU/mL Blood 06/02/2021 3:14 AM EDT 06/02/2021 4:37 AM EDT Narrative Resulting Agency Comment Spec In Lab Elias Hassan APRN HEMATOLOGY ORDERABLE S Performing Organization Address City/State/[facility] Co de Phone Number [facility] [place] [address] * (ABNORMAL) Differential, Automated (06/02/2021 3:14 AM EDT) Neutrophil % 57.6 % [facility] Neutrophil Absolute 6.01 1.70 - 6.10 x10(3)/mc L [facility] Lymph % 25.5 % [facility] Lymphocytes Abs 2.7 0.9 - 3.2 x10(3)/mc L [facility] Monocyte % 8.6 % [facility] Monocyte Abs 0.9 0.3 - 0.9 x10(3)/mc L [facility] Eos % 5.9 % [facility] Eosinophils Abs 0.6(H) 0.0 - 0.4 x10(3)/mc L [facility] Basophil % 1.2 % [facility] Baso Absolute 0.1 0.0 - 0.1 x10(3)/mc L [facility] Immature Gran % 1.20 % [facility] Comment: Immature granulocytes(IG's)percentage and absolute count will include metamyelocytes, myelocytes, and promyelocytes. Blood smears from CBCs yielding IG's will be scanned manually for concordance. If this scan disagrees with the automated IG or if promyelocytes are noted, a manual differential will be performed. Immature Gran Absolute 0.12(H) 0.00 - 0.04 x10(3)/mc L [facility] Blood 06/02/2021 3:14 AM EDT 06/02/2021 4:37 AM EDT Narrative Resulting Agency Comment Spec In Lab Elias Hassan APRN HEMATOLOGY ORDERABLE S [facility] [place] [address] * (ABNORMAL) Hemogram (06/02/2021 3:14 AM EDT) White Blood Cell 10.4(H) 4.0 - 9.5 x10(3)/mc L [facility] Red Blood Cell 4.48 4.00 - 5.21 x10(6)/mc L [facility] Hemoglobin 12.4 11.7 - 15.5 g/dL [facility] Hematocrit 39.6 35.7 - 45.8 % [facility] Mean Cell Volume 88.4 82.6 - 94.4 fL [facility] Mean Cell Hemoglobin 27.7 27.1 - 32.0 pg [facility] Mean Cell Hemoglobin Concentration 31.3(L) 31.7 - 35.0 g/dL [facility] Platelet 427(H) 145 - 357 x10(3)/mc L [facility] RDW Standard Deviation 45.7 37.0 - 46.0 fL [facility] RDW coefficient of variation 14.2(H) 11.5 - 14.1 % [facility] Mean Platelet Volume 9.5 7.6 - 12.9 fL [facility] NRBC% auto 0.0 % [facility] NRBC Absolute 0.000 0.000 - 0.000 x10(3)/mc L [facility] Blood 06/02/2021 3:14 AM EDT 06/02/2021 4:37 AM EDT Narrative Resulting Agency Comment Spec In Lab Elias Hassan APRN HEMATOLOGY ORDERABLE S [facility] [place] [address] * (ABNORMAL) BMP w/fasting Glucose (06/02/2021 3:14 AM EDT) Glucose Fasting 114(H) 65 - 99 mg/dL [facility] Comment: ?Fasting* Glucose Interpretive Criteria Normal ?65-99 mg/dL Impaired Fasting glucose ?100-125 mg/dL Consistent with Diabetes Mellitus ? >or= 126 mg/dL *Fasting is defined as no caloric intake for at least 8 hours In the absence of unequivocal hyperglycemia a plasma glucose value of >or= 126 mg/dL should be repeated on a subsequent day. Diagnosis and Classification of Diabetes Mellitus, Position Statement from the [place] [employer]. ??Diabetes Care, Volume 33, Supplement 1, Mar 2009 Blood Urea Nitrogen 16 8 - 18 mg/dL [facility] Creatinine 0.74 0.70 - 1.20 mg/dL [facility] Sodium 138 135 - 145 mmol/L [facility] Potassium 4.2 3.5 - 5.0 mmol/L [facility] Comment: Please note: ??Patients with WBC >100,000 may have falsely elevated Potassium levels. ??For accurate Potassium quantification in these patients send serum separator tube (gold top) for subsequent determinations. ??Contact the Clinical Chemistry Laboratory if there are any questions. Chloride 102 98 - 107 mmol/L [facility] Carbon Dioxide 25 22 - 31 mmol/L [facility] Anion Gap 11 5 - 15 mmol/L [facility] Calcium 8.5 8.5 - 10.5 mg/dL [facility] Est Glomerular Filtration Rate 89 >=60 mL/min/1. 73 m?? [facility] Comment: This patient? s estimated glomerular filtration rate (eGFR) is between 89 mL/min/1.73 m2 (patients with less muscle mass) and 103 mL/min/1.73 m2 (patients with more muscle mass) as determined by the CKD-EPI equation. Assessment of eGFR is not appropriate when creatinine concentrations are rapidly changing. For clinical decisions where creatinine clearance will affect therapy, a 24-hour urine creatinine clearance may be advised. Assignment of CKD stage 1 - 5 for patients with an eGFR near the transition point between stages may be based on clinical assessment of muscle mass and symptoms in addition to eGFR. Blood 06/02/2021 3:14 AM EDT 06/02/2021 4:37 AM EDT Narrative Resulting Agency Comment Spec In Lab Elias Hassan APRN CHEMISTRY ORDERABLES [facility] [place] [address] * Triglyceride (06/02/2021 3:14 AM EDT) Triglyceride 203 mg/dL [facility] Comment: Average Risk/Lower Risk: <150 mg/dL Borderline High Risk: 150-199 mg/dL High Risk: 200-499 mg/dL Very High Risk: >ng=426 mg/dL Blood 06/02/2021 3:14 AM EDT 06/02/2021 4:37 AM EDT Narrative Resulting Agency Comment Spec In Lab Elias Hassan APRN CHEMISTRY ORDERABLES [facility] [place] [address] * HDL/Cholesterol Profile (06/02/2021 3:14 AM EDT) Cholesterol, Total 166 mg/dL Rose PEREZ [facility] Comment: Lower Risk: <200 mg/dL Average Risk: 200-239 mg/dL Higher Risk: >lw=551 mg/dL HDL Cholesterol 37 mg/dL [facility] Comment: Males: ?? Higher Risk: <40 mg/dL Females: ?? Higher Risk: <50 mg/dL Cholesterol/HDL Ratio 4.5 ratio [facility] Chol/HDL Interpretation See Note [facility] Comment: Lipid management should be guided by a patient? s ASCVD risk, goals and preferences. ACC/AHA Guidelines recommend high intensity statin if clinical ASCVD or LDL greater than or equal to 190 mg/dL. http://MeshApp.com/LWO-EKP-Rrhaxozks Measure LDL if Total Cholesterol minus HDL Cholesterol is greater than 220 mg/dL. Adults aged 40-75 with LDL 70-189 mg/dL should have their 10 year ASCVD risk estimated with the ACC/AHA ASCVD risk auto job estimator http://tools.acc.org/WXVQJ-Lovw-Ikeftnpsx/ Statin should be discussed if risk greater [...] Narrative Resulting Agency Comment Spec In Lab Elias Hassan APRN CHEMISTRY ORDERABLES [facility] [place] [address] * LDL Cholesterol, Direct (06/02/2021 3:14 AM EDT) LDL Cholesterol, Direct 102 mg/dL [facility] Comment: Lowest Risk: <100 mg/dL Lower Risk: 100-129 mg/dL Borderline High Risk: 130-159 mg/dL High Risk: 160-189 mg/dL Very High Risk: >kh=568 mg/dL Blood 06/02/2021 3:14 AM EDT 06/02/2021 4:37 AM EDT Narrative Resulting Agency Comment Spec In Lab Elias Hassan APRN CHEMISTRY ORDERABLES [facility] [place] [address] * Hemoglobin A1c (06/02/2021 3:14 AM EDT) Hemoglobin A1c 5.6 4.3 - 5.6 % [facility] Comment: Reference Range: 4.3 - 5.6% 5.7 - 6.4% - Increased Risk of Developing Diabetes Mellitus >= 6.5% - Consistent with diagnosis of Diabetes Mellitus In the absence of hyperglycemia (i.e. plasma glucose > 200 mg/dL) or classic symptoms of hyperglycemia a repeat measurement of HbA1c should be performed on a separate sample to confirm the diagnosis. Diagnosis and Classification of Diabetes Mellitus, Diabetes Care 2013; 36: Suppl. 1, Z13-85 Estimated Average Glucose 115 mg/dL [facility] Comment: eAG equivalents for HbA1c percentages: HbA1c(%) ?eAG(mg/dL) 6.0 ?126 6.5 ?140 7.0 ?154 7.5 ?169 8.0 ?183 8.5 ?197 9.0 ?212 9.5 ?226 10.0 ? 240 Limitations: The eAG calculation has not been validated on women, individuals below 18 years old and above 70 years old, and individuals with hemoglobinopathies. Additional resources are available on the ADA website. Chaitanya HOBSON, Mitchell J, Lety R, et al. ??Translating the A1C assay into estimated average glucose values. ??Diabetes Care 2008:31(8):8404-6695. Blood 06/02/2021 3:14 AM EDT 06/02/2021 4:37 AM EDT Narrative Resulting Agency Comment Spec In Lab Elias Hassan APRN CHEMISTRY ORDERABLES [facility] [place] [address] * (ABNORMAL) Troponin (06/02/2021 3:14 AM EDT) Troponin-T 1.89(H) 0.00 - 0.00 ng/mL [facility] Comment: The 99th percentile for Troponin T is less than 0.01 ng/mL, any detectable cTnT concentration using this assay should be considered elevated. According to the third universal definition of myocardial infarction the following criteria with a clinical presentation consistent with acute myocardial ischemia meets the diagnosis for a myocardial infarction (NE). Detection of a rise and/or fall of cTnT, with at least one value greater than the 99th percentile (> or = 0.01) and with at least one of the following ?? Symptoms of ischemia ?? New or presumed new significant WA-ahrvusl-T wave (ST-T) changes or new left bundle branch block (LBBB) ?? Development of pathologic Q waves in the ECG ?? Imaging evidence of new loss of viable myocardium or new regional wall motion abnormality ?? Identification of an intracoronary thrombus by angiography or autopsy Samples for cTnT testing should be obtained serially upon first assessment and again 3 to 6 hours later. If the clinical suspicion is high and previous samples have been negative an additional sample may be indicated. Reference: Third Brooks Definition of Myocardial Infarction. Journal of the [place] [employer] 2012;60:1581-98 Blood 06/02/2021 3:14 AM EDT 06/02/2021 4:37 AM EDT Narrative Resulting Agency Comment Spec In Lab Elias Hassan SERGIO CHEMISTRY ORDERABLES Performing Organization Address City/[facility]/ZIP Co de Phone Number [facility] [place] [address] * Heparin (unfractionated) Level (06/01/2021 9:01 PM EDT) Pathologist [facility] UF Heparin 0.37 IU/mL [facility] Comment: Heparin (anti-Xa) levels should be determined in a plasma sample that has been drawn 6 hours after a dose change to approximate steady-state for continuous heparin infusions. Indication specific Heparin (anti-Xa) levels based on order set selection: Acute DVT or PE treatment: 0.3 ? 0.7 IU/mL Thrombosis Prevention (eg. atrial fibrillation, renato-procedural bridging, mechanical valves): 0.3 ? 0.7 IU/mL Acute Coronary Syndrome: 0.3 ? 0.7 IU/mL Stroke Indications: 0.3 ? 0.5 IU/mL Ultra-low intensity (select indications in cardiac surgery): 0.1 ? 0.3 IU/mL Blood 06/01/2021 9:01 PM EDT 06/01/2021 9:13 PM EDT Narrative Resulting Agency Comment Spec In Lab Elias Hassan SERGIO HEMATOLOGY ORDERABLE S Performing Organization Address City/[facility]/ZIP Co de Phone Number [facility] [place] [address] * (ABNORMAL) Troponin (06/01/2021 9:01 PM EDT) Pathologist [facility] Troponin-T 1.97(H) 0.00 - 0.00 ng/mL [facility] Comment: result rechecked-nb The 99th percentile for Troponin T is less than 0.01 ng/mL, any detectable cTnT concentration using this assay should be considered elevated. According to the third universal definition of myocardial infarction the following criteria with a clinical presentation consistent with acute myocardial ischemia meets the diagnosis for a myocardial infarction (NE). Detection of a rise and/or fall of cTnT, with at least one value greater than the 99th percentile (> or = 0.01) and with at least one of the following ?? Symptoms of ischemia ?? New or presumed new significant NX-yatqnek-L wave (ST-T) changes or new left bundle branch block (LBBB) ?? Development of pathologic Q waves in the ECG ?? Imaging evidence of new loss of viable myocardium or new regional wall motion abnormality ?? Identification of an intracoronary thrombus by angiography or autopsy Samples for cTnT testing should be obtained serially upon first assessment and again 3 to 6 hours later. If the clinical suspicion is high and previous samples have been negative an additional sample may be indicated. Reference: Third Brooks Definition of Myocardial Infarction. Journal of the [place] [employer] 2012;60:1581-98 Blood 06/01/2021 9:01 PM EDT 06/01/2021 9:13 PM EDT Narrative Resulting Agency Comment Spec In Lab Elias Hassan APRN CHEMISTRY ORDERABLES [facility] [place] [address] * Heparin (unfractionated) Level (06/01/2021 2:52 PM EDT) UF Heparin 0.39 IU/mL [facility] Comment: Heparin (anti-Xa) levels should be determined in a plasma sample that has been drawn 6 hours after a dose change to approximate steady-state for continuous heparin infusions. Indication specific Heparin (anti-Xa) levels based on order set selection: Acute DVT or PE treatment: 0.3 ? 0.7 IU/mL Thrombosis Prevention (eg. atrial fibrillation, renato-procedural bridging, mechanical valves): 0.3 ? 0.7 IU/mL Acute Coronary Syndrome: 0.3 ? 0.7 IU/mL Stroke Indications: 0.3 ? 0.5 IU/mL Ultra-low intensity (select indications in cardiac surgery): 0.1 ? 0.3 IU/mL Blood 06/01/2021 2:52 PM EDT 06/01/2021 3:04 PM EDT Narrative Resulting Agency Comment Spec In Lab Elias J Mo CONTRACT ADMIN HEMATOLOGY ORDERABLE S Performing Organization Address City/[facility]/ZIP Co de Phone Number [facility] [place] [address] * (ABNORMAL) Differential, Automated (06/01/2021 2:52 PM EDT) Neutrophil % 65.7 % [facility] Neutrophil Absolute 8.63(H) 1.70 - 6.10 x10(3)/mc L [facility] Lymph % 22.2 % [facility] Lymphocytes Abs 2.9 0.9 - 3.2 x10(3)/mc L [facility] Monocyte % 6.9 % [facility] Monocyte Abs 0.9 0.3 - 0.9 x10(3)/mc L [facility] Eos % 3.4 % [facility] Eosinophils Abs 0.4 0.0 - 0.4 x10(3)/mc L [facility] Basophil % 1.1 % [facility] Baso Absolute 0.2(H) 0.0 - 0.1 x10(3)/mc L [facility] Immature Gran % 0.70 % [facility] Comment: Immature granulocytes(IG's)percentage and absolute count will include metamyelocytes, myelocytes, and promyelocytes. Blood smears from CBCs yielding IG's will be scanned manually for concordance. If this scan disagrees with the automated IG or if promyelocytes are noted, a manual differential will be performed. Immature Gran Absolute 0.09(H) 0.00 - 0.04 x10(3)/mc L [facility] Blood 06/01/2021 2:52 PM EDT 06/01/2021 3:04 PM EDT Narrative Resulting Agency Comment Spec In Lab Elias Hassan CONTRACT ADMIN HEMATOLOGY ORDERABLE S Performing Organization Address City/[facility]/ZIP Co de Phone Number [facility] [place] [address] * (ABNORMAL) Hemogram (06/01/2021 2:52 PM EDT) Pathologist [facility] White Blood Cell 13.2(H) 4.0 - 9.5 x10(3)/mc L [facility] Red Blood Cell 4.97 4.00 - 5.21 x10(6)/mc L [facility] Hemoglobin 14.1 11.7 - 15.5 g/dL [facility] Hematocrit 42.9 35.7 - 45.8 % [facility] Mean Cell Volume 86.3 82.6 - 94.4 fL [facility] Mean Cell Hemoglobin 28.4 27.1 - 32.0 pg [facility] Mean Cell Hemoglobin Concentration 32.9 31.7 - 35.0 g/dL [facility] Platelet 452(H) 145 - 357 x10(3)/[facility] LABORAT[facility] RDW Standard Deviation 44.4 37.0 - 46.0 fL [facility] RDW coefficient of variation 14.2(H) 11.5 - 14.1 % [facility] Mean Platelet Volume 9.0 7.6 - 12.9 fL [facility] NRBC% auto 0.0 % [facility] NRBC Absolute 0.000 0.000 - 0.000 x10(3)/[facility] Blood 06/01/2021 2:52 PM EDT 06/01/2021 3:04 PM EDT Narrative Resulting Agency Comment Spec In Lab Elias Hassan APRN HEMATOLOGY ORDERABLE S [facility] [place] [address] * (ABNORMAL) Troponin (06/01/2021 2:52 PM EDT) [facility] Troponin-T 1.06(H) 0.00 - 0.00 ng/mL [facility] Comment: The 99th percentile for Troponin T is less than 0.01 ng/mL, any detectable cTnT concentration using this assay should be considered elevated. According to the third universal definition of myocardial infarction the following criteria with a clinical presentation consistent with acute myocardial ischemia meets the diagnosis for a myocardial infarction (NE). Detection of a rise and/or fall of cTnT, with at least one value greater than the 99th percentile (> or = 0.01) and with at least one of the following ?? Symptoms of ischemia ?? New or presumed new significant ML-ezpceir-L wave (ST-T) changes or new left bundle branch block (LBBB) ?? Development of pathologic Q waves in the ECG ?? Imaging evidence of new loss of viable myocardium or new regional wall motion abnormality ?? Identification of an intracoronary thrombus by angiography or autopsy Samples for cTnT testing should be obtained serially upon first assessment and again 3 to 6 hours later. If the clinical suspicion is high and previous samples have been negative an additional sample may be indicated. Reference: Third Brooks Definition of Myocardial Infarction. Journal of the [place] [employer] 2012;60:1581-98 Blood 06/01/2021 2:52 PM EDT 06/01/2021 3:04 PM EDT Narrative Resulting Agency Comment Spec In Lab Elias Hassan APRN CHEMISTRY ORDERABLES [facility] [place] [address] * EKG 12 Lead (06/01/2021 1:47 PM EDT) Ventricular rate 77 BPM MUSE SYSTEM Atrial Rate 77 BPM MUSE SYSTEM P-R Interval 160 ms MUSE SYSTEM QRS Duration 78 ms MUSE SYSTEM Q-T Interval 404 ms MUSE SYSTEM QTC Calculated (Bezet) 457 ms MUSE SYSTEM Calculated P [place] 65 degrees MUSE SYSTEM Calculated R [place] 21 degrees MUSE SYSTEM Calculated T [place] 71 degrees MUSE SYSTEM INTERPRETATION Normal sinus rhythm Poor R-wave progression Otherwise normal ECG When compared with ECG of 18-JUN-2020 17:13, Sinus rhythm has replaced Ectopic atrial rhythm Confirmed by MD Jp, Heidi ([id number]) on 06/02/2021 9:27:06 AM MUSE SYSTEM 06/01/2021 1:47 PM EDT 06/02/2021 9:27 AM EDT Elias Hassan APRN ECG ORDERABLES MUSE SYSTEM * COVID-19 PCR (06/01/2021 1:27 PM EDT) SARS-CoV-2 RNA (Rapid) Not Detected Not Detected [facility] Comment: This result should be interpreted in combination with the clinical observations, patient history and epidemiological information. For testing of asymptomatic individuals, assay performance characteristics and clinical utility have not been evaluated. Testing for SARS-CoV-2 (Severe acute respiratory syndrome coronavirus 2, formerly known as 2019 novel coronavirus or 2019-nCoV) to aid in the diagnosis of COVID-19 is performed using the Simplexa COVID-19 Direct Assay by [employer] as authorized by the FDA issued Emergency Use Authorization (EUA). This assay is intended for In-vitro Diagnostic (IVD) use with nasopharyngeal swabs collected from individuals meeting the CDC criteria for testing. The assay is performed based on the instructions for use and additional guidance provided by the FDA. Testing is performed in the Microbiology Laboratory within the Department of Pathology and Laboratory Medicine at [facility], certified under the Clinical Laboratory Improvement Amendments of 1988 (CLIA), 42 U.S.C. section 263a, to perform high complexity tests. Assay performance has been verified according to clinical laboratory regulatory requirements. Test results are provided above. A result of Not Detected indicates that the viral RNA target is not present but does not preclude SARS-CoV-2 infection. False negative results may occur if a specimen is improperly collected, transported or handled; if amplification inhibitors are present; or if inadequate numbers of viral particles are present in the specimen. A result of Detected suggests a current or recent infection and the patient is presumed to be infected. Positive and negative predictive values for this test are highly dependent on disease prevalence. A result of Invalid indicates the inability to conclusively determine the presence or absence of SARS-CoV-2 RNA in the sample which can be due to a variety of factors. Recollection is recommended in the case of an invalid result. CDC COVID-19 criteria for testing on human specimens and clinical management guidance information are available at the CDC Coronavirus Disease 2019 (COVID-19) webpage under Information for Healthcare Professionals (https://www.cdc.gov/coronavirus/2019-ncov/hcp/index.html). Additional information about this and other EUA tests can be found in provider and patient fact sheets at the following FDA website: https://www.fda.gov/medical-devices/runcybprekh-lghqxma-9158-eiffk-54-babbsudcg- use-a vojcufeqiqdyc-vuauphe-qxokoci/ufwii-woxgssiiwdj-wsjc SARS-CoV-2 Source [employer] Swab [facility] Nasopharyngeal Swab 06/02/19 1:27 PM EDT 06/01/2021 2:18 PM EDT Comment:Symptoms->Surveillan ce Narrative Resulting Agency Comment Spec In Lab Elias Hassan APRN MICROBIOLOGY - GENER AL ORDERABLES Performing Organization Address City/State/[facility] Co de Phone Number [facility] [place] [address] documented in this encounter Visit Diagnoses Diagnosis Non-ST elevation myocardial infarction (NSTEMI) Acute myocardial infarction, subendocardial infarction, episode of care unspecified NSTEMI (non-ST elevated myocardial infarction) Acute myocardial infarction, subendocardial infarction, episode of care unspecified documented in this encounter Admitting Diagnoses Diagnosis NSTEMI (non-ST elevated myocardial infarction) Acute myocardial infarction, subendocardial infarction, episode of care unspecified documented in this encounter Administered Medications Inactive Administered Medications - up to 3 most recent administrations Medication Order MAR Action Action Date Dose Rate Site acetaminophen (Tylenol) tablet 650 mg 650 mg, Oral, EVERY 6 HOURS PRN, Starting on Wed06/02/21 at 0200, Until Wed06/03/21 at 1310, Pain, Maximum dose of acetaminophen is 4000 mg from all sources in 24 hours. When ordered for pain, acetaminophen should be given even when other ordered pain medications are indicated. , Routine Given 06/02/2021 8:41 PM EDT 650 mg Given 06/02/2021 2:08 AM EDT 650 mg apixaban (Eliquis) tablet 5 mg 5 mg, Oral, 2 TIMES DAILY, First dose on Wed06/03/21 at 0900, Until Discontinued, Anticoagulant, Routine, Restricted anticoagulant, choose the most appropriate response: Approved indication of non-valvular atrial fibrillation Given 06/03/2021 9:11 AM EDT 5 mg aspirin chewable tablet 81 mg 81 mg, Oral, DAILY, First dose on Wed06/02/21 at 0900, Until Discontinued, Routine Given 06/03/2021 9:10 AM EDT 81 mg Given 06/02/2021 9:38 AM EDT 81 mg atorvastatin (Lipitor) tablet 80 mg 80 mg, Oral, EVERY EVENING, First dose on Wed06/01/21 at 1700, Until Discontinued, Routine Given 06/02/2021 5:30 PM EDT 80 mg Given 06/01/2021 5:21 PM EDT 80 mg clopidogreL (Plavix) tablet 75 mg 75 mg, Oral, DAILY, First dose on Wed06/02/21 at 0900, Until Discontinued, Routine Given 06/03/2021 9:11 AM EDT 75 mg Given 06/02/2021 9:38 AM EDT 75 mg fluticasone propionate (Flovent HFA) 110 mcg/actuation inhaler 1 puff 1 puff, Inhalation, 2 TIMES DAILY, First dose on Wed06/01/21 at 2100, Until Discontinued, Shake well; Rinse mouth after administration., Routine, Does your patient meet one of the mometasone HFA (Asmanex) restrictions from the order instructions above? Yes gabapentin (Neurontin) capsule 300 mg 300 mg, Oral, DAILY AT NOON, First dose on Wed06/02/21 at 1200, Until Discontinued, Routine Given 06/02/2021 3:04 PM EDT 300 mg heparin (porcine) 50 units/mL in sodium chloride 0.45% 500 mL infusion 0-5,000 Units/hr (0-100 mL/hr), Intravenous, CONTINUOUS, Starting on Wed06/01/21 at 1500, Until Wed06/02/21 at 1743, Begin infusion at 1,000 units per hr (12 units/kg/hr). Maximum initial infusion rate is 1,000 units/hr. Infusion doses are rounded to the nearest 50 units. Target Heparin UFH Level (anti-Xa activity) = 0.3 - 0.7 international unit/mL Start adjustment schedule 6 hours after starting infusion. If Heparin UFH Level is: - Less than 0.1 international unit/mL: Administer PRN bolus and increase rate by 350 units per hr (4 units/kg/hr) - 0.1 - 0.19 international unit/mL: Administer PRN bolus and increase rate by 200 units per hr (2 units/kg/hr) - 0.2 - 0.29 international unit/mL: NO BOLUS and increase rate by 200 units per hr (2 units/kg/hr) - 0.3 - 0.7 international unit/mL: No change - 0.71 - 0.79 international unit/mL: NO BOLUS and decrease rate by 100 units per hr (1 units/kg/hr) - 0.8 - 0.99 international unit/mL: NO BOLUS and decrease rate by 200 units per hr (2 units/kg/hr) - Greater than or equal to 1.00 international unit/mL: Hold infusion for 60 minutes then decrease rate by 250 units per hour (3 units/kg/hr) Repeat Heparin UFH Level 6 hours after initiating heparin. Then 6 hours after each dose adjustment. When 2 consecutive Heparin UFH Level within target range of 0.3 - 0.7 international unit/mL, change Heparin UFH Level to once every 24 hours with A.M. labs while on heparin. RN to order required Heparin UFH Level - Per Protocol, Routine Rate/Dose Change 06/02/2021 4:57 AM EDT 1,200 Units/hr 24 mL/hr New Bag 06/01/2021 11:40 AM EDT 1,000 Units/hr 20 mL/hr levothyroxine (Synthroid) tablet 50 mcg 50 mcg, Oral, EVERY MORNING, First dose on Wed06/02/21 at 0700, Until Discontinued, Routine Given 06/03/2021 6:03 AM EDT 50 mcg Given 06/02/2021 6:08 AM EDT 50 mcg losartan (Cozaar) tablet 50 mg 50 mg, Oral, DAILY, First dose on Wed06/01/21 at 1500, Until Discontinued, Routine Given 06/03/2021 9:11 AM EDT 50 mg Given 06/02/2021 9:38 AM EDT 50 mg Given 06/01/2021 2:38 PM EDT 50 mg metoprolol tartrate (Lopressor) tablet 12.5 mg 12.5 mg, Oral, EVERY 6 HOURS SCHEDULED, First dose on Wed06/01/21 at 1415, Until Discontinued, Hold for SBP less than 90 or HR less than 50, Routine Given 06/03/2021 5:17 AM EDT 12.5 mg Given 06/02/2021 5:31 PM EDT 12.5 mg Given 06/02/2021 3:04 PM EDT 12.5 mg pantoprazole EC (Protonix) tablet 40 mg 40 mg, Oral, DAILY, First dose on Wed06/03/21 at 0900, Until Discontinued, DO NOT CRUSH OR OPEN Given 06/03/2021 9:11 AM EDT 40 mg perflutren protein-A microsphers (Optison) (0.22 mg/mL) injection 1 mL 1 mL, Intravenous, ONCE PRN, 1 dose, Starting on Wed06/02/21 at 0939, Until Wed06/02/21 at 0820, for enhancement of sub-optimal echo images, Echo Lab (Intra-Procedure), Routine Given 06/02/2021 8:20 AM EDT 1 mL sodium chloride 0.9% infusion 100 mL/hr, Intravenous, CONTINUOUS, Starting on Wed06/02/21 at 1315, Until Wed06/02/21 at 1714, Recovery (Recovery-Hospital Unit) New Bag 06/02/2021 2:35 PM EDT 100 mL/hr 100 mL /hr tiotropium bromide (Spiriva Respimat) 2.5 mcg/actuation inhaler 2 puff 2 puff, Inhalation, DAILY, First dose on Wed06/01/21 at 2045, Until Discontinued, Must be primed prior to first administration, Routine traZODone (Desyrel) tablet 50 mg 50 mg, Oral, NIGHTLY, First dose on Wed06/01/21 at 2100, Until Discontinued, Routine Given 06/02/2021 8:41 PM EDT 50 mg Given 06/01/2021 8:50 PM EDT 50 mg documented in this encounter Active and Recently Administered Medications Times are shown in EDT. Scheduled Medication Order 06/01/2021 06/02/2021 06/03/2021 apixaban (Eliquis) tablet 5 mg 5 mg, Oral, 2 TIMES DAILY, First dose on Wed06/03/21 at 0900, Until Discontinued, Anticoagulant, Routine, Restricted anticoagulant, choose the most appropriate response: Approved indication of non-valvular atrial fibrillation 0911 (Given - Provider: Elias Overton RN) aspirin chewable tablet 81 mg 81 mg, Oral, DAILY, First dose on Wed06/02/21 at 0900, Until Discontinued, Routine 0938 (Given - Provider: Precious Wood RN)1144 ([facility] Hold - Provider: Admin Adt - Reason: Transfer to a Procedural area)1456 ([facility] Unhold - Provider: Admin Adt) 0910 (Given - Provider: Elias Overton RN) atorvastatin (Lipitor) tablet 80 mg 80 mg, Oral, EVERY EVENING, First dose on 06/01/21 at 1700, Until Discontinued, Routine 1721 (Given - Provider: Precious Wood RN) 1144 ([facility] Hold - Provider: Admin Adt - Reason: Transfer to a Procedural area)1456 ([facility] Unhold - Provider: Admin Adt)1730 (Given - Provider: Precious Wood RN) clopidogreL (Plavix) tablet 75 mg 75 mg, Oral, DAILY, First dose on Wed06/02/21 at 0900, Until Discontinued, Routine 0938 (Given - Provider: Precious Wood RN)1144 ([facility] Hold - Provider: Admin Adt - Reason: Transfer to a Procedural area)1456 ([facility] Unhold - Provider: Admin Adt) 0911 (Given - Provider: Elias Overton RN) fluticasone propionate (Flovent HFA) 110 mcg/actuation inhaler 1 puff 1 puff, Inhalation, 2 TIMES DAILY, First dose on 06/01/21 at 2100, Until Discontinued, Shake well; Rinse mouth after administration., Routine, Does your patient meet one of the mometasone HFA (Asmanex) restrictions from the order instructions above? Yes 2100 (Not Given - Provider: Deandra Young RN - Reason: See comment - Comment: pt requesting to take this in AM with other inhaler only) 0900 (Not Given - Provider: Precious Wood RN - Reason: Patient/family refused)1144 ([facility] Hold - Provider: Admin Adt - Reason: Transfer to a Procedural area)1456 ([facility] Unhold - Provider: Admin Adt)2100 (Not Given - Provider: Deandra Young RN - Reason: Patient/family refused) 0900 (Not Given - Provider: Elias Overton RN - Reason: Patient/family refused) gabapentin (Neurontin) capsule 300 mg 300 mg, Oral, DAILY AT NOON, First dose on Wed06/02/21 at 1200, Until Discontinued, Routine 1144 ([facility] Hold - Provider: Admin Adt - Reason: Transfer to a Procedural area)1456 ([facility] Unhold - Provider: Admin Adt)1504 (Given - Provider: Precious Wood RN) levothyroxine (Synthroid) tablet 50 mcg 50 mcg, Oral, EVERY MORNING, First dose on Wed06/02/21 at 0700, Until Discontinued, Routine 0608 (Given - Provider: Deandra Young RN)1144 ([facility] Hold - Provider: Admin Adt - Reason: Transfer to a Procedural area)1456 ([facility] Unhold - Provider: Admin Adt) 0603 (Given - Provider: Deandra Young RN) losartan (Cozaar) tablet 50 mg 50 mg, Oral, DAILY, First dose on Wed06/01/21 at 1500, Until Discontinued, Routine 1438 (Given - Provider: Precious Wood RN) 0938 (Given - Provider: Precious Wood RN)1144 ([facility] Hold - Provider: Admin Adt - Reason: Transfer to a Procedural area)1456 ([facility] Unhold - Provider: Admin Adt) 0911 (Given - Provider: Elias Overton RN) metoprolol tartrate (Lopressor) tablet 12.5 mg (CANCELED) 12.5 mg, Oral, EVERY 6 HOURS SCHEDULED, First dose on Wed06/01/21 at 1415, Until Discontinued, Hold for SBP less than 90 or HR less than 50, Routine 1438 (Given - Provider: Precious Wood RN)1720 (Given - Provider: Precious Wood RN)2308 (Given - Provider: Deandra Young RN) 0608 (Given - Provider: Deandra Young RN)1144 ([facility] Hold - Provider: Admin Adt - Reason: Transfer to a Procedural area)1456 ([facility] Unhold - Provider: Admin Adt)1504 (Given - Provider: Precious Wood RN)1731 (Given - Provider: Precious Wood RN) 0000 (Not Given - Provider: Deandra Young RN - Reason: Order parameters not met)0517 (Given - Provider: Deandra N Snow, RN) pantoprazole EC (Protonix) tablet 40 mg 40 mg, Oral, DAILY, First dose on Wed06/03/21 at 0900, Until Discontinued, DO NOT CRUSH OR OPEN 0911 (Given - Provider: Elias Overton RN) tiotropium bromide (Spiriva Respimat) 2.5 mcg/actuation inhaler 2 puff 2 puff, Inhalation, DAILY, First dose on Wed06/01/21 at 204, Until Discontinued, Must be primed prior to first administration, Routine 2044 (Not Given - Provider: Deandra Young RN - Reason: See comment - Comment: due in AM per pt and MAY) 0900 (Not Given - Provider: Precious Wood RN - Reason: Patient/family refused)1144 ([facility] Hold - Provider: Admin Adt - Reason: Transfer to a Procedural area)1456 ([facility] Unhold - Provider: Admin Adt) 0900 (Not Given - Provider: Elias Overton RN - Reason: Patient/family refused) traZODone (Desyrel) tablet 50 mg 50 mg, Oral, NIGHTLY, First dose on Wed06/01/21 at 2100, Until Discontinued, Routine 2049 (Given - Provider: Deandra Young RN) 1144 ([facility] Hold - Provider: Admin Adt - Reason: Transfer to a Procedural area)1456 ([facility] Unhold - Provider: Admin Adt)2040 (Given - Provider: Deandra Young RN) Continuous Medication Order 06/01/2021 06/02/2021 06/03/2021 heparin (porcine) 50 units/mL in sodium chloride 0.45% 500 mL infusion (CANCELED)(Linked Group 1) 0-5,000 Units/hr (0-100 mL/hr), Intravenous, CONTINUOUS, Starting on Wed06/01/21 at 1500, Until Wed06/02/21 at 1743, Begin infusion at 1,000 units per hr (12 units/kg/hr). Maximum initial infusion rate is 1,000 units/hr. Infusion doses are rounded to the nearest 50 units. Target Heparin UFH Level (anti-Xa activity) = 0.3 - 0.7 international unit/mL Start adjustment schedule 6 hours after starting infusion. If Heparin UFH Level is: - Less than 0.1 international unit/mL: Administer PRN bolus and increase rate by 350 units per hr (4 units/kg/hr) - 0.1 - 0.19 international unit/mL: Administer PRN bolus and increase rate by 200 units per hr (2 units/kg/hr) - 0.2 - 0.29 international unit/mL: NO BOLUS and increase rate by 200 units per hr (2 units/kg/hr) - 0.3 - 0.7 international unit/mL: No change - 0.71 - 0.79 international unit/mL: NO BOLUS and decrease rate by 100 units per hr (1 units/kg/hr) - 0.8 - 0.99 international unit/mL: NO BOLUS and decrease rate by 200 units per hr (2 units/kg/hr) - Greater than or equal to 1.00 international unit/mL: Hold infusion for 60 minutes then decrease rate by 250 units per hour (3 units/kg/hr) Repeat Heparin UFH Level 6 hours after initiating heparin. Then 6 hours after each dose adjustment. When 2 consecutive Heparin UFH Level within target range of 0.3 - 0.7 international unit/mL, change Heparin UFH Level to once every 24 hours with A.M. labs while on heparin. RN to order required Heparin UFH Level - Per Protocol, Routine 1140 (New Bag - Provider: Precious Wood RN) 0457 (Rate/Dose Change - Provider: Deandra Young RN)1144 ([facility] Hold - Provider: Admin Adt - Reason: Transfer to a Procedural area)1300 (Stopped - Provider: Precious Wood RN)1456 ([facility] Unhold - Provider: Admin Adt) sodium chloride 0.9% infusion () 100 mL/hr, Intravenous, CONTINUOUS, Starting on Wed06/02/21 at 1315, Until Wed06/02/21 at 1714, Recovery (Recovery-Hospital Unit) 1435 (New Bag - Provider: Chanda Last RN) PRN Medication Order 06/01/2021 06/02/2021 06/03/2021 acetaminophen (Tylenol) tablet 650 mg 650 mg, Oral, EVERY 6 HOURS PRN, Starting on Wed06/02/21 at 0200, Until Wed06/03/21 at 1310, Pain, Maximum dose of acetaminophen is 4000 mg from all sources in 24 hours. When ordered for pain, acetaminophen should be given even when other ordered pain medications are indicated. , Routine 0208 (Given - Provider: Deandra Young RN)1144 (MAY Hold - Provider: Admin Adt - Reason: Transfer to a Procedural area)1456 (MAY Unhold - Provider: Admin Adt)2040 (Given - Provider: Deandra Young RN) fentaNYL (pf) (50 mcg/mL) multi-dose injection (CANCELED) ONCE PRN, Starting on Wed06/02/21 at 1154, Until Wed06/02/21 at 1250, Cath (Intra-Procedure), Routine 1154 (Given - Provider: Jc Mckeon)1159 (Given - Provider: Jc Mckeon) heparin (porcine) (1,000 units/mL) injection (CANCELED) ONCE PRN, Starting on Wed06/02/21 at 1212, Until Wed06/02/21 at 1250, Cath (Intra-Procedure), Routine 1212 (Given - Provider: Francisco Phillips)1228 (Given - Provider: Jc Mckeon) iohexoL (Omnipaque) (350 mg/mL) solution (CANCELED) ONCE PRN, Starting on Wed06/02/21 at 1247, Until Wed06/02/21 at 1250, Cath (Intra-Procedure), Routine 1247 (Given - Provider: Toan Birch MD) midazolam (pf) (Versed) (1 mg/mL) multi-dose injection (CANCELED) ONCE PRN, Starting on Wed06/02/21 at 1154, Until Wed06/02/21 at 1250, Cath (Intra-Procedure), Routine 1154 (Given - Provider: Jc Mckeon) niCARdipine (Cardene) (100 mcg/mL) dilution (ATTENDANT COIN OPERATED LAUNDRY) (CANCELED) ONCE PRN, Starting on Wed06/02/21 at 1241, Until Wed06/02/21 at 1250, Intra-Operative (Intra-Procedure), Routine 1241 (Given - Provider: Toan Birch MD) nitroGLYcerin (Nitrostat) disintegrating tablet 0.4 mg 0.4 mg, Sublingual, EVERY 5 MIN PRN, Starting on Wed06/01/21 at 1323, Until Wed06/03/21 at 1310, Chest pain, May repeat every 5 minutes for a total of three doses. Notify provider if chest pain not relieved with nitroglycerin. Do not administer nitroglycerin if the patient has received or taken phosphodiesterase (PDE-5) inhibitors such as sildenafil, tadalafil or vardenafil within the last 24 to 72 hours., Routine 1144 (MAY Hold - Provider: Admin Adt - Reason: Transfer to a Procedural area)1456 (MAY Unhold - Provider: Admin Adt) nitroGLYcerin 100 mcg/mL intracoronary dilution (CANCELED) ONCE PRN, Starting on Wed06/02/21 at 1209, Until Wed06/02/21 at 1250, Cath (Intra-Procedure), Routine 1209 (Given - Provider: Toan Birch MD) perflutren protein-A microsphers (Optison) (0.22 mg/mL) injection 1 mL (COMPLETED) 1 mL, Intravenous, ONCE PRN, 1 dose, Starting on Wed06/02/21 at 0939, Until Wed06/02/21 at 0820, for enhancement of sub-optimal echo images, Echo Lab (Intra-Procedure), Routine 0820 (Given - Provider: Danie Darnell) verapamiL (Isoptin) (2.5 mg/mL) injection (CANCELED) ONCE PRN, Starting on Wed06/02/21 at 1209, Until Wed06/02/21 at 1250, Administer over 2 Minutes, Cath (Intra-Procedure) 1209 (Given - Provider: Toan Birch MD)1222 (Given - Provider: Toan Birch MD) Linked Groups Order Group 1: heparin (porcine) 50 units/mL in sodium chloride 0.45% 500 mL infusion (CANCELED)Jump to med 0-5,000 Units/hr (0-100 mL/hr), Intravenous, CONTINUOUS, Starting on Wed06/01/21 at 1500, Until Wed06/02/21 at 1743, Begin infusion at 1,000 units per hr (12 units/kg/hr). Maximum initial infusion rate is 1,000 units/hr. Infusion doses are rounded to the nearest 50 units. Target Heparin UFH Level (anti-Xa activity) = 0.3 - 0.7 international unit/mL Start adjustment schedule 6 hours after starting infusion. If Heparin UFH Level is: - Less than 0.1 international unit/mL: Administer PRN bolus and increase rate by 350 units per hr (4 units/kg/hr) - 0.1 - 0.19 international unit/mL: Administer PRN bolus and increase rate by 200 units per hr (2 units/kg/hr) - 0.2 - 0.29 international unit/mL: NO BOLUS and increase rate by 200 units per hr (2 units/kg/hr) - 0.3 - 0.7 international unit/mL: No change - 0.71 - 0.79 international unit/mL: NO BOLUS and decrease rate by 100 units per hr (1 units/kg/hr) - 0.8 - 0.99 international unit/mL: NO BOLUS and decrease rate by 200 units per hr (2 units/kg/hr) - Greater than or equal to 1.00 international unit/mL: Hold infusion for 60 minutes then decrease rate by 250 units per hour (3 units/kg/hr) Repeat Heparin UFH Level 6 hours after initiating heparin. Then 6 hours after each dose adjustment. When 2 consecutive Heparin UFH Level within target range of 0.3 - 0.7 international unit/mL, change Heparin UFH Level to once every 24 hours with A.M. labs while on heparin. RN to order required Heparin UFH Level - Per Protocol, Routine And heparin (porcine) (1,000 units/mL) injection 0-4,000 Units (CANCELED) 0-4,000 Units, Intravenous, BOLUS PER HEPARIN PROTOCOL, Starting on 06/01/21 at 1406, Until 06/02/21 at 1743, Per Protocol, START ADJUSTMENT SCHEDULE 6 HOURS AFTER STARTING INFUSION Bolus doses are rounded to the nearest 100 units. If Heparin UFH Level is: - Less than 0.1 international unit/mL: Bolus 60 units/kg (Maximum of 4,000 units) = Bolus 4,000 units - 0.1 - 0.19 International unit/mL: Bolus 30 units/kg (Maximum of 2,000 units) = Bolus 2,000 units - Equal to or greater than 0.2 international unit/mL: No Bolus, Routine documented in this encounter Care Teams Electrification Adviser Relationship Specialty Start Date End Date Nya Hernandez APRN [address] [id number] PCP - General Family Medicine 05/07/21 documented as of this encounter
--- OUTSIDE RECORDS SUMMARY | 2023-12-28 16:20 | XMS_ITS | Encounter Summary ---
Author Organization [facility] Address [facility] [place] [address] Care Team Providers Care Export Freight Manager Name Role Phone Nya Hernandez APRN Primary Care Provider [phone]- [phone] Encounter Details Date Type Department Care Team (Latest Contact Info) Description 11/13/2021 12:00 PM EDT TH Visit (TeleHealth) [place] [address] Whit Nance MD [facility] [address] Incisional hernia, without obstruction or gangrene; Cigarette nicotine dependence with nicotine-induced disorder; Class 1 obesity with body mass index (BMI) of 34.0 to 34.9 in adult, unspecified obesity type, unspecified whether serious comorbidity present Social History Tobacco Use Types Packs/Day Years Used Date Smoking Tobacco: Some Days Cigarettes 1 40 Started: 05/1980; Last attempted to quit: 05/2020 Smokeless Tobacco: Never Comments:never vape Alcohol Use Standard Drinks/Week Comments Yes 0 (1 standard drink = 0.6 oz pur e alcohol) none since 06/2020 Sex and Gender Information Value Date Recorded Sex Assigned at Not on file Gender Identity Not on file Sexual Orientation Not on file documented as of this encounter Progress Notes * Whit Nance MD - 11/13/2021 12:00 PM EDT Telehealth Visit Eliza Moya is a 56 yo woman with a history of COPD, PAD s/p right AKA, HTN, CAD s/p PCI 05/27,and paroxysmal atrial fibrillation who I am follow up with today regarding an incisional hernia. Ms. Moya had a complicated surgical history secondary to a prolonged hospitalization in May 2020.She was hospitalized at this time for a perforated duodenal ulcer and critical limb ischemia requiring a right AKA and multiple exploratory laparotomies. See course below: 05/11- ex-lap, washout, closure of duodenal perforation, abthera 05/12- falguni-en-y duodenojejunostomy with abdominal closure 05/16- Ex-lap to rule out ischemia, abthera 05/18- ex-lap, partial omentectomy, abthera 05/20- ex-lap, partial omentectomy, fascial closure, wound vac At her last in-person visit with me in July 2021, we discussed several issues that need to be addressed prior to surgery. We reviewed these problems today. I also spoke with her PCP, Nya Hernandez APRN following our video visit to help with additional planning. 1. Cardiac Optimization: Hx of NSTEMI in May 2021 s/p PCI with [facility]. She remains on eliquis and plavix. She says she had an appointment with her Machining Supervisor yesterday who said she can come off her blood thinners for surgery at this point. 2. Pulmonary Optimization: Hx of COPD. Per her PCP, she has not used supplemental O2 for 1 year. She has an appointment with a Security Controls Assessor on 12/03. 3. Smoking; she continues to try and quit smoking. She has not smoked for 2 weeks and is using patches. I explained that she will need to be completely nicotine free for 8 weeks prior to surgery. I also communicated this to her PCP who will work with Ms. Moya on weaning down from the patches. 4. Chronic wound: She attempted to show me a wound over her hernia which was difficult to evaluate via Zoom. She has had a wound chronically but says that the drainage appears yellowish/green now. Onreview of her CT scan, she is certainly at risk of an EC fistula. I think she would benefit from consistent follow up with a wound care team. Her PCP is going to look into this and if there is no wound care available in her area, she can be referred here [place] [facility] ?? 5. Obesity. Her current BMI is no prohibitive for surgery but continued weight loss can only help with surgical repair. Current weight is down to 187lbs. I will follow up with her in about 1 month for an in person visit to see her progress. Whit Nance MD documented in this encounter Plan of Treatment Not on file documented as of this encounter Visit Diagnoses Diagnosis Incisional hernia, without obstruction or gangrene Incisional hernia without mention of obstruction or gangrene Cigarette nicotine dependence with nicotine-induced disorder Unspecified drug-induced mental disorder Class 1 obesity with body mass index (BMI) of 34.0 to 34.9 in adult, unspecified obesity type, unspecified whether serious comorbidity present documented in this encounter Care Teams Export Freight Manager Relationship Specialty Start Date End Date Nya Hernandez APRN [address] [place] [id number] PCP - General Family Medicine 05/07/21 documented as of this encounter
--- OUTSIDE RECORDS SUMMARY | 2023-12-28 16:20 | XMS_ITS | Encounter Summary ---
Author Organization [facility] [place] [address] Care Team Providers Care Motorcycle Engine Assembler Name Role Phone Nya Hernandez APRN Primary Care Provider +1- [phone] Encounter Details Date Type Department Care Team (Latest Contact Info) Description 02/06/2022 Travel Social History Tobacco Use Types Packs/Day [...] on filedocumented in this encounter Care Teams Motorcycle Engine Assembler Relationship Specialty Start Date End Date Nya Hernandez APRN [address] [place] [id number] PCP - General Family Medicine 05/07/21 documented as of this encounter
--- OUTSIDE RECORDS SUMMARY | 2023-12-28 16:20 | XMS_ITS | Encounter Summary ---
Author Organization [facility] [place] [address] Care Team Providers Care Meat Seafood Associate Name Role Phone yNa Hernandez APRN Primary Care Provider +1- [phone] Encounter Details Date Type Department Care Team (Late st Contact Info) Description 12/19/2021 Orders Only [place] [address] Whit Nance MD [facility] [place] [address] Incisional hernia, without obstruction or gangrene Social [...] gangrene documented in this encounter Care Teams Meat Seafood Associate Relationship Specialty Start Date End Date Nya Hernandez APRN [address] [place] [phone] PCP - General Family Medicine 05/07/21 documented as of this encounter
--- OUTSIDE RECORDS SUMMARY | 2023-12-28 16:20 | XMS_ITS | Encounter Summary ---
Author Organization [facility] [place] [place] [address] Care Team Providers Care Bagging Salvager Name Role Phone Unavailable Primary Care Provider Unavailabl e Encounter Details Date Type Department Care Team (Late st Contact Info) Description 09/25/2020 9:30 AM EDT Office [place] [address] Crystal Coker, OFFICE CLERK ROUTINE [facility] [place] [address] Surgery follow-up Social History Tobacco Use Types Packs/Day Years Used Date Smoking Tobacco: Former Cigarettes Smokeless Tobacco: Never Alcohol Use Standard Drinks/Week Comments Yes 6 (1 standard drink = 0.6 oz pur e alcohol) reported by Son Sex and Gender Information Value Date Recorded Sex Assigned at Not on file Gender Identity Not on file Sexual Orientation Not on file documented as of this encounter Progress Notes * Crystal Coker, OFFICE CLERK ROUTINE - 09/25/2020 9:30 AM EDT Eliza Moya presents to general surgery clinic for wound check She was last seen on 08/14/20. Reports she has been feeling well over the interval. ?? Eliza is recuperating at [facility] in [facility]. She reports she will be going homeon 10/05/20 and is delighted with this. ?? She tells me she is feeling well, continues on her home O2. Denies fevers chills, appetite is good,denies sob or chest pain. Denies abd pain, nausea or vomiting. She is moving her bowels and voidingwithout difficulty. Denies any difficulty with her abdominal wound. ?? EXAM: Non toxic appearing. Abd soft non tender non distended. Midline abd wound is clean, granulating andflush with the skin.I cleaned the wound and placed aquaecll with mepilex border to cover. No erythema or fluctuance. No odor. ?? Impression/plan: Clean wound FU 1 month for wound check I am happy to see her back on an as needed basis over the interval documented in this encounter Plan of Treatment Not on file documented as of this encounter Visit Diagnoses Diagnosis Surgery follow-up Follow-up examination, following unspecified surgery documented in this encounter
--- OUTSIDE RECORDS SUMMARY | 2023-12-28 16:20 | XMS_ITS | Encounter Summary ---
Author Organization [facility] [place] [address] Care Team Providers Care Loan Specialist Name Role Phone Nya Hernandez SERGIO Primary Care Provider [phone] Reason for Visit * Auth/Cert Specialty Diagnoses / Procedures Referred By Tomas early Referred To Contact Diagnoses NSTEMI (non-ST elevated myocardial infarction) NSTEMI Procedures EMERGENCY IPI Referral ID Status Reason Start Date Expiration Date Visits Re quested Visits Authorized [id number] 1 1 Encounter Details Date Type Department Care Team (Late st Contact Info) Description 06/02/2021 10:10 AM EDT - 06/02/2021 11:10 AM EDT [place] [address] Toan Birch MD [facility] [place] [address] CARDIAC CATHETERIZATION Social History Tobacco Use Types Packs/Day Years [...] Sign Reading Time Taken Comments Blood Pressure 108/63 06/02/2021 6:07 AM EDT Pulse 75 06/02/2021 6:07 AM EDT Temperature 36.7 ??C (98.1 ??F) 06/02/2021 3:18 AM ED T Respiratory Rate 16 06/02/2021 3:18 AM EDT Oxygen Saturation 99% 06/02/2021 3:18 AM EDT Inhaled Oxygen Concentration - - Weight 92.8 kg (204 lb 9.4 oz) 06/02/2021 3:17 A M EDT Height 160 cm (5' 2.99) 06/01/2021 1:05 PM EDT Body Mass Index 35.47 06/01/2021 1:05 PM EDT documented in this encounter Discharge Summaries * Julio Todd PA - 06/03/2021 10:29 AM EDT Images from the original note were not included. Discharge Summary Patient Name: Eliza Moya Patient Age: 56 y.o. Language: Sami Race: White Ethnicity: Not nor Admit date: [...] care scheduled in two weeks and with [facility] cardiology scheduled in 5 weeks Inpatient Provider Contact Information: MD Elias Samson, SERGIO Todd PA-C Cardiovascular Medicine [phone] Discharge Diagnoses (Hospital Problems) and Secondary Diagnoses [...] 4 this morning, EMS transported her to [facility] where she ruled in for NSTEMI with HS troponins of 762 (ULN 51). Transfered to [facility] for further evaluation. ?? Of note, she has a fairly moderate sized abdominal hernia and is due to establish care with surgery in a few weeks to discuss next steps. No currently scheduled surgeries. Hospital Course: #NSTEMI type I #ASCVD s/p DESx1 to the proximal OM2 Eliza Moya is a 56 y.o. female who presented to??[facility]??with chest pain and??ruled in for NSTEMI with HS troponins of 762 (ULN 51). ??Transfered??to [facility] for further ischemic evaluation. Troponin continue to uptrend while here, peak troponin-T of 1.97. TTE 06/02/21 remarkable for a LVEF of 60% and WMAs in the circumflex distribution. She is now status post [facility] yesterday, 06/02/21 with successful stent to the [...] in the last 7068 hours. Recent Labs 06/02/21 031 HA1C 5.6 Recent Labs 06/02/21 0314 06/01/21 [...] away. Stay on the phone. The emergency straddle bug operator will tell you what to do. [...] of 8AM-5PM please call the Cardiology Clinic [phone] to speak with a nurse. All other hours please call the Hospital Rope Maker [phone] and ask to speak to the javascript application developer on-call. Follow up Appointments: Doctor Where Phone # Date Time PCP SERGIO Muñoz [address] [place] [address] [phone] WednesdayJune 17 2:00pm Assisted Living Nursing Director Dr. Chayo Keen [address] [place] [phone] WednesdayJuly 08 11:20am Future Appointments and Orders Future Appointments and Orders Future Appointments Provider Department Dept Phone 06/11/2021 11:00 AM Nirav Bowen MD General Surgery at [facility] Arrive at: Dock Clerk Area 4L [phone] Future Orders Complete By Expires Referral to Cardiac Rehab [[id number] Custom] As directed Process Instructions: If no progress note charted, please enter Clinical details in comments. Scheduling Instructions: Questions: My question or request is: NSTEMI. Cardiac rehab at [facility]. Discharge References/Attachments None Julio Todd PA-C [...] of 8AM-5PM please call the Cardiology Clinic [phone] to speak with a nurse. All other hours please call the Hospital Rope Maker [phone] and ask to speak to the javascript application developer on-call. Follow up Appointments: Doctor Where Phone # Date Time PCP SERGIO Muñoz [address] [place] [phone] WednesdayJune 17 2:00pm Assisted Living Nursing Director Dr. Chayo Keen [address] [place] [address] [phone] WednesdayJuly 08 11:20am * Patient Instructions* Julio [...] away. Stay on the phone. The emergency straddle bug operator will tell you what to do. [...] Progress Note Patient Name: Eliza Moya Service: NOTCHED BLADE LOADER / PA Responsible Attending: Leonel Claire MD Reason for continued hospitalization: NSTEMI, type I ASCVD s/p DESx1 to midLCx/proxOM2 Active Problems: Active Hospital Problems Diagnosis ??? NSTEMI (non-ST elevated myocardial infarction) Resolved Hospital Problems No resolved problems to display. Interval History: No acute events overnight. Patient has remained chest pain and dyspnea free sincearrival. She is now status post [facility] yesterday, 06/02/21 with successful stent to the [...] LL PE started on AC. Presented to [facility] with chest pain and ruled in for NSTEMI with HS troponins of 762 (ULN 51). Transfered to [facility] for further ischemic evaluation. Troponin continue to uptrend while here, peak troponin-T of 1.97. TTE 06/02/21 remarkable for a LVEF of 60% and WMAs in the circumflex distribution. She is now status post [facility] yesterday, 06/02/21 with successful stent to the [...] 60% and WMAs in the circumflex distribution [facility] 06/02/21 remarkable for DESx1 to midLCx/proxOM2 ?? #Paroxymal afib Currently in SR Continue new metoprolol, as above Restart eliquis today ?? #HTN BP: (81-112)/(51-71) Stable trends Continue losartan ?? #COPD, 2L O2 dependent PRN duo nebs Code Status: Full code DVT Prophylaxis: Restarting eliquis this morning Discussed with MD Julio Samson PA-C Pager [phone] 06/03/2021 Associated attestation - Leonel Claire MD [...] Progress Note Patient Name: Eliza Moya Service: NOTCHED BLADE LOADER / PA Responsible Attending: Leonel Claire MD [...] up-trending since arrival. NPO since midnight for C today. Review of Systems: Review of Systems [...] ??? heparin (porcine) infusion 1,200 Units/hr (06/02/21 5116) PRN Meds:acetaminophen, nitroGLYcerin, heparin (porcine) infusion AND [...] She is alert. Lab Comments: Recent Labs 06/02/2131306/01/21 1452 WBC 10.4* 13.2* HGB 12.4 14.1 [...] LL PE started on AC. Presented to [facility] with chest pain and ruled in for NSTEMI with HS troponins of 762 (ULN 51). Transfered to [facility] for further ischemic evaluation. Troponin continue to [...] daily ?? #COPD, 2L O2 dependent PRN duo nebs Code Status: Full code DVT Prophylaxis: IV Heparin infusion Discussed with MD Julio Samson PA-C Pager [phone] 06/02/2021 Associated attestation - Leonel Claire MD [...] 4 this morning, EMS transported her to [facility] where she ruled in for NSTEMI with HS troponins of 762 (ULN 51). Transfered to [facility] for further evaluation. Of note, she has [...] DRAINAGE 05/27/2020 CT Guided Drain Peritoneal 05/27/2020 [facility] RAD CAT SCAN ??? CT PERITONEAL DRAINAGE 05/27/2020 CT Guided Drain Peritoneal 05/27/2020 [facility] RAD CAT SCAN ??? CT PERITONEAL DRAINAGE 05/27/2020 CT Guided Drain Peritoneal 05/27/2020 [facility] RAD CAT SCAN ??? IR CHEST TUBE PLACEMENT BILATERAL 05/15/2020 IR Chest Tube Placement Bilateral 05/15/2020 Ricky Hollis MD [facility] INTERVENTIONL RAD ??? PRO AMPUTATE THIGH, OPEN CIRCULAR Right 05/11/2020 AMPUTATION, ABOVE-KNEE, OPEN, GUILLOTINE (WRVU 10.98) performed by Christine Montgomery MD at [facility] MAIN OR ??? PRO AMPUTATE THIGH, SECONDRY CLOSUR Right 06/13/2020 AMPUTATION, ABOVE-KNEE, SECONDARY CLOSURE OR SCAR REVISION (WRVU 7.29) performed by Christine Montgomery MD at [facility] MAIN OR ??? PRO CHOLECYSTOENTER+DONAVAN-EN-Y+GASTROENT N/A 05/12/2020 @DONAVAN-EN-Y WITH GASTROENTEROSTOMY (WRVU 24.21) performed by Meme Torres MD at [facility] MAIN OR ??? PRO EXPLORATORY OF ABDOMEN N/A 05/11/2020 @EXPLORATORY LAPAROTOMY, WITH/WITHOUT BIOPSY(S) (WRVU 12.54) performed by Meme Torres MD at [facility] MAIN OR ??? PRO GASTROJEJUNOSTOMY N/A 05/12/2020 @GASTROJEJUNOSTOMY (WRVU 22.53) performed by Meme Torres MD at [facility] OR ??? PRO REOPEN RECENT ABD EXPLORATORY N/A 05/12/2020 @EXPLORATORY LAPAROTOMY, REOPENING OF RECENT (WRVU 17.63) performed by Meme Torres MD at [facility] OR ??? PRO REOPEN RECENT ABD EXPLORATORY Midline 05/16/2020 @EXPLORATORY LAPAROTOMY, REOPENING OF RECENT (WRVU 17.63) performed by Nakul Vega MD at [facility] OR ??? PRO REOPEN RECENT ABD EXPLORATORY Midline 05/18/2020 @EXPLORATORY LAPAROTOMY, REOPENING OF RECENT (WRVU 17.63) performed by Marco Silver MD at [facility] OR ??? PRO REPAIR PERF DUOD/JIMENA ULC-WND/INJ N/A 05/11/2020 GASTRORRHAPHY, SUTURE OF PERFORATED, ULCER, WOUND, INJURY (WRVU 22.83) performed by Meme Torres MD at [facility] OR ??? PRO RESECT SMALL INTEST, SINGL RESEC/ANAS N/A 05/12/2020 @BOWEL RESECTION, SMALL INTESTINE SINGLE ANASTOMOSIS (WRVU 20.82) performed by Meme Torres MD at [facility] OR ??? PRO SUTURE ABD WALL-DEHIS/EVISCER Midline 05/20/2020 @SUTURE, SECONDARY, OF ABD WALL FOR EVISCERATION OR DEHISCENCE (WRVU 12.41) performed by Rmia Akbar MD at [facility] OR ? ? PRO UNLISTED PX ABD PRTM&OMENTUM N/A 05/20/2020 SUTURE OMENTUM (WRVU 11.1) performed by Rima Akbar MD at [facility] OR ??? PRO UNLISTED PX ABDOMEN MUSCULOSKELETAL SYSTEM Midline 05/16/2020 WOUND CLOSURE, ABDOMINAL, PARTIAL W/ WOUND VAC (WRVU 6.39) performed by Nakul Vega MD at [facility] OR ??? PRO UPPER GI ENDOSCOPY, BIOPSY N/A 11/25/2020 EGD WITH BIOPSY (WRVU 2.49) performed by Kervin Rubio MD at [facility] ENDOSCOPY Significant Family History: No family history [...] right LL PE started onAC. Presented to [facility] with chest pain and ruled in for NSTEMI with HS troponins of 762 (ULN 51). Transfered to [facility] for further evaluation. Will plan to cycle [...] Elias Hassan APRN Cardiovascular Medicine Provider #: [id number] 06/01/2021 Associated attestation - Leonel Claire MD - 06/02/2021 2:22 PM EDT I have seen and examined the patient, have reviewed labs, pertinent images, and EKGs. I agree with the H&P, formulation, and plan as directed by the Elias Hassan documented in this encounter Miscellaneous Notes * Care Management Discharge - Linda Willis, RN - 06/03/2021 11:05 AM EDT CARE MANAGEMENT FINAL DISCHARGE NOTE Chart reviewed, care reviewed with primary team and at interdisciplinary rounds. Patient is medically ready for discharge to home. Needs for Transition of Care: Per discharge instructions. Plan for discharge is: Home w/o Services Outpatient Agency/Support Group Needs: None Resp Needs: Home O2 Company: [employer] Medical Status: *Current client Agency Referrals & Follow-up Care: Contact information for follow-up Cardiac Rehab, [facility] [address] [facility] [address] Transportation: family or friend will provide *Zjbvllaf-nz-otk/caregiver Denise [phone] Wheelchair van/Ambulance? No Functional status prior to admission: Assistive Equipment and Assistive Person Home Environment: Others in the home: child(carmita), adult (Son Twin and bhsrrffl-rv-reg Denise are independent in IADLs including driving). [...] Insurance: MEDICAID [place] Prescription Coverage: Preferred Pharmacy: [facility] - [place], [place] - [address] [facility] [address] [facility] [address] This plan was formulated with input from [...] in an outpatient cardiac rehabilitation program at [facility] was discussed. Patient agrees to a [...] %] A/P. Post cardiac cath without complications. Julio Todd PA-C Pager #[phone] 06/02/2021 * Plan of Care - Julio [...] for further details. CARLEE Bueno 06/02/2021 Pager [phone] * Brief Op Note - Toan Birch MD - 06/02/2021 9:36 AM EDT Images from the original note were not included[place] [id number] CORONARY ANGIOGRAM AND PERCUTANEOUS CORONARY INTERVENTION REPORT Patient: Eliza Moya : 1965 MR number: [id number] Date of Service: 06/02/2021 System Controller: Toan Birch MD Assist: CHERYL Aragon INDICATION: [...] 4 this morning, EMS transported her to [facility] where she ruled in for NSTEMI with HS troponins of 762 (ULN 51). Transfered to [facility] for further evaluation. She isnow undergoing cardiac [...] obtained. The patient was brought to the superintendent geophysical laboratory and placed on the table. Time out [...] no procedural complications. ?? I provided direct ybvm-ov-hzrp monitoring of conscious sedation which was administered by an independent trained nurse. ?? RESULTS: Coronary circulation: The coronary circulation is??right dominant. She has small diffusely diseasedvessels. There was??severe 99% proximal OM2 disease:? Left main: Angiography showed??mild to moderate diffuse disease. ?? LAD: Angiography showed a 40% prox LAD lesion, and mild to??moderate diffuse disease.??The Jxuu5hqn mild to moderate diffuse disease. ?? Circumflex: [...] LL PE started on AC. Presented to [facility] with chest pain and ruled in for NSTEMI with HS troponins of 762(ULN 51). Transfered to [facility] for further evaluation. Will plan to cycle troponins. If down trending, could consider pharmacologic stress test vs cardiac catheterization. TTE tomorrow. (from 06/01/21 Cardiology H&P) Last COVID test: Lab Results Component Value Date [id number] Not Detected 06/01/2021 Present on Admission: ??? NSTEMI (non-ST elevated myocardial infarction) Hospitalizations Within the Past 30 Days: other (see comments) (Transferred from [facility] ([facility] Patient receiving hospital care under Inpatient status. Admission order reviewed. Primary Insurance on file: MEDICAID [place] Secondary Insurance on file: None Primary care provider on file: Nya Hernandez, POTTERY STRIPER [phone] Pharmacy: No Pharmacies Listed Advance Care Planning: Attempt Cardiopulmonary Resuscitation - Inpatient Received -Advanced Directive: Yes, on file Who is your DPOA-HC?: Child (Son Twin of [facility] [phone] is primary DPOAH; fvzpcoax-ex-att Denise [phone] secondary.) Current Functional Ability: Assistive Equipment and Assistive Person Functional Status Prior to Admission: Assistive Equipment and Assistive Person Home Environment: Others in the home: child(carmita), adult (Son Twin and qpihalzw-zu-czy Denise are independent in IADLs including driving). Current Living Arrangements: home/apartment/condo. Accessibility Concerns:No concerns. Current DME: walker - standard, wheelchair - manual, prosthesis (prosthetic leg) [address] [place] [address] Social & Family Supports: All names listed below confirmed with son Twin and ksrrdpqq-zq-peu Denise as current and correct Extended Emergency Contact Information Primary Emergency Contact: Twin Moya Address: [address] [place] [address] [facility] Home Phone: [phone] Mobile Relation: Child Secondary Emergency Contact: TONI MOYA Mobile Relation: Child Current Care Provided by: self, child(carmita) (Ccsrytsc-tz-ycs Denise assists at home) Transportation: no concerns Transportation Anticipated: family or friend will provide (Ktytrnor-na-yoi/caregiver Denise) Assessment: Patient with no apparent RNCM/SW needs at this time. No housing, transportation, insurance, resources concerns identified at this time. Supports in place to achieve a safe post-hospital transition. No identified barriers to accessing necessary care and/or follow-up after discharge. Plan: Patient to d/c to home via private transport when medically ready. Registered Nurse Control Clerk Head / Senior Engineering Specialist will continue to follow patient???s progress and [...] (Bezet) 445 ms MUSE SYSTEM Calculated P [place] 40 degrees MUSE SYSTEM Calculated R [place] 19 degrees MUSE SYSTEM Calculated T [place] 92 degrees MUSE SYSTEM INTERPRETATION Normal sinus rhythm Normal ECG When compared with ECG of 02-JUN-2021 13:00, No significant change was found I personally reviewed the tracing and edited the fellows interpretation Confirmed by fellow Chito Reynolds ([id number]) on 06/03/2021 11:30:57 AM Confirmed by MD Trammell Danette ([id number]) on 06/03/2021 11:34:11 AM MUSE SYSTEM 06/03/2021 6:18 AM EDT 06/03/2021 11:34 AM EDT Elias Hassan APRN ECG ORDERABLES MUSE SYSTEM * (ABNORMAL) Differential, Automated (06/03/2021 4:00 AM EDT) Neutrophil % 54.2 % [facility] Neutrophil Absolute 6.52(H) 1.70 - 6.10 x10(3)/ L [facility] Lymph % 28.2 % [facility] Lymphocytes Abs 3.4(H) 0.9 - 3.2 x10(3)/[facility] Monocyte % 9.3 % [facility] Monocyte Abs 1.1(H) 0.3 - 0.9 x10(3)/ L [facility] Eos % 5.5 % [facility] Eosinophils Abs 0.7(H) 0.0 - 0.4 x10(3)/ L [facility] Basophil % 1.2 % [facility] Baso Absolute 0.2(H) 0.0 - 0.1 x10(3)/ L [facility] Immature Gran % 1.60 % [facility] Comment: Immature granulocytes(IG's)percentage and absolute count will include metamyelocytes, myelocytes, and promyelocytes. Blood smears from CBCs yielding IG's will be scanned manually for concordance. If this scan disagrees with the automated IG or if promyelocytes are noted, a manual differential will be performed. Immature Gran Absolute 0.19(H) 0.00 - 0.04 x10(3)/mc L [facility] Blood 06/03/2021 4:00 AM EDT 06/03/2021 4:38 AM EDT Narrative Resulting Agency Comment Spec In Lab Elias Hassan SERGIO HEMATOLOGY ORDERABLE S [facility] [place] [address] * (ABNORMAL) Hemogram (06/03/2021 4:00 AM EDT) White Blood Cell 12.0(H) 4.0 - 9.5 x10(3)/mc L [facility] Red Blood Cell 4.57 4.00 - 5.21 x10(6)/mc L [facility] Hemoglobin 12.6 11.7 - 15.5 g/dL [facility] Hematocrit 40.4 35.7 - 45.8 % [facility] Mean Cell Volume 88.4 82.6 - 94.4 fL [facility] Mean Cell Hemoglobin 27.6 27.1 - 32.0 pg [facility] Mean Cell Hemoglobin Concentration 31.2(L) 31.7 - 35.0 g/dL [facility] Platelet 418(H) 145 - 357 x10(3)/mc L [facility] RDW Standard Deviation 46.3(H) 37.0 - 46.0 fL [facility] RDW coefficient of variation 14.5(H) 11.5 - 14.1 % [facility] Mean Platelet Volume 9.2 7.6 - 12.9 [facility] NRBC% auto 0.0 % [facility] NRBC Absolute 0.000 0.000 - 0.000 x10(3)/mc L [facility] Blood 06/03/2021 4:00 AM EDT 06/03/2021 4:38 AM EDT Narrative Resulting Agency Comment Spec In Lab Elias Hassan SERGIO HEMATOLOGY ORDERABLE S [facility] [place] [address] * (ABNORMAL) BMP w/fasting Glucose (06/03/2021 4:00 AM EDT) [facility] Signature Glucose Fasting 114(H) 65 - 99 mg/dL [facility] Comment: ?Fasting* Glucose Interpretive [...] of Diabetes Mellitus, Position Statement from the [place] Diabetes Association. ??Diabetes Care, Volume 33, Supplement 1, Mar 2009 Blood Urea Nitrogen 16 8 - 18 mg/dL [facility] Creatinine 0.78 0.70 - 1.20 mg/dL [facility] Sodium 138 135 - 145 mmol/L [facility] Potassium 4.3 3.5 - 5.0 mmol/L [facility] Comment: Please note: ??Patients with WBC >100,000 may have falsely elevated Potassium levels. ??For accurate Potassium quantification in these patients send serum separator tube (gold top) for subsequent determinations. ??Contact the Clinical Chemistry Laboratory if there are any questions. Chloride 104 98 - 107 mmol/L [facility] Carbon Dioxide 22 22 - 31 mmol/L [facility] Anion Gap 12 5 - 15 mmol/L [facility] Calcium 8.5 8.5 - 10.5 mg/dL [facility] Est Glomerular Filtration Rate 84 >=60 mL/min/1. 73 m?? [facility] Comment: This patient? s [...] In Lab Elias Hassan APRN CHEMISTRY ORDERABLES Performing Organization Address [facility] Co de Phone Number [facility] [place] [address] * EKG 12 Lead (06/02/2021 1:00 PM EDT) Ventricular rate 71 BPM MUSE SYSTEM Atrial Rate 71 BPM MUSE SYSTEM P-R Interval 158 ms MUSE SYSTEM QRS Duration 84 ms MUSE SYSTEM Q-T Interval 418 ms MUSE SYSTEM QTC Calculated (Bezet) 454 ms MUSE SYSTEM Calculated P [place] 77 degrees MUSE SYSTEM Calculated R [place] 57 degrees MUSE SYSTEM Calculated T [place] 93 degrees MUSE SYSTEM INTERPRETATION Normal sinus rhythm Normal ECG When compared with ECG of 02-JUN-2021 06:16, No significant change was found Confirmed by MD Garrett, Rima Mclaughlin ([id number]) on 06/02/2021 1:42:50 PM MUSE SYSTEM 06/02/2021 1:00 PM EDT 06/02/2021 1:42 PM EDT Leonel Claire MD ECG ORDERABLES Performing Organization Address [facility]/ZIP Co de Phone Number MUSE SYSTEM * CARDIAC CATHETERIZATION (06/02/2021 12:50 PM EDT) Anatomical Region Laterality Modality Other Narrative 06/02/2021 1:14 PM EDT ?[facility] ? Cardiac Catheterization/Intervention Report ? Patient Name: Moya, Eliza ? Procedure Date: 06/02/2021 ? A #: [id number] ? Primary Physician: Birch, Toan P ? Case #: [id number] ? File Name: [id number] ? Catheterization Order Number: [id number] ? [facility] ? Final Report [place], [place] ? Patient Name: ? Eliza Moya ?ID#: ?[id number] ? : ?1965 ? Procedure Date: ? June 02, 2021 ? Case #: ? [id number] ? Room: ? 2 ? Case Physician: ? Toan Birch M.D. ?Start: ?12:09 ?Fellow: ? Ej Tee M.D. ?Admission: ??06/01/2021 ? Referring Physician: ??Nya ??Edvin Hernandez APRN ? Procedures: ?* Coronary Angiography ?* Coronary [...] procedure was Urgent. The indication for ?the superintendent geophysical laboratory visit is ACS greater than 24 hrs. [...] dose administered prior to arrival in the superintendent geophysical laboratory. ?Recommended anti-platelet/anti-thrombotic regimen: ?Continue aspirin 81 mg [...] may require ?modification of this regimen. Consult [facility] Interventional Cardiology for ?questions. ?The 1 year [...] x 12 mm Synergy XD BENSON stent. ?Please continue Aspirin 81 [...] vascular ?ultrasound and stent insertion-coronary. ? Toan Birch M.D. ? Electronically Signed by: Toan Birch M.D. ? Report Finalized: 06/02/2021 ??13:07 ? Report Last Ammended: 06/04/2021 ??07:54 ? Toan P Eyal MD CARDIAC CATH ORDERAB LES * ECHO COMPLETE W CONTRAST (06/02/2021 9:39 AM EDT) Anatomical Region Laterality Modality Other 06/02/2021 7:54 AM EDT Narrative 06/02/2021 10:05 AM EDT ?[facility] ?[address] ? [place] [address] ?Voice: ?Fax: ? Echocardiogram Report Name: ELIZA MOYA ?Study Date: 06/02/2021 07:54 AMBP: 108/63 mmHg ? Patient Location: [facility]^C434^A : 1965 ? Height: 160 cm ? Account: [id number] Age: 56 yrs ? Weight: 93 kg Gender: Female ?BSA: 2.0 m2 Ordering Physician: ELIAS HASSAN Referring Physician: RIMA GRIMM Performed By: Danie Darnell RDCS Reason For Study: Cardiac disease History: NSTEMI Exam Location: [facility]. Interpretation Summary 1. Wall thickness is mildly [...] in the circumflex distribution are new. Procedure Complete-[id number]. Image enhancement Optison was used for both [...] Procedure Note April Covarrubias MD - 06/02/2021 [facility] [address] [place] [id number] Voice: Fax: Echocardiogram Report Name: ELIZA MOYA Study Date: 207:54 AMBP: 108/63 mmHg Patient Location:[facility]^C434^A : 1965 Height: 160 cm Account: [id number] Age: 56 yrs Weight: 93 kg Gender: Female BSA: 2.0 m2 Ordering Physician: ELIAS HASSAN Referring Physician: RIMA GRIMM Performed By: Danie Darnell RDCS Reason For Study: Cardiac disease History: NSTEMI Exam Location: [facility]. Interpretation Summary 1. Wall thickness is mildly [...] abnormalitiesin the circumflex distribution are new. Procedure Complete-[id number]. Image enhancement Optison was used for both [...] (Bezet) 471 ms MUSE SYSTEM Calculated P [place] 75 degrees MUSE SYSTEM Calculated R [place] 33 degrees MUSE SYSTEM Calculated T [place] 97 degrees MUSE SYSTEM INTERPRETATION Normal sinus rhythm Normal ECG When compared with ECG of 01-JUN-2021 13:47, (unconfirmed) No significant change was found I personally reviewed the tracing and edited the fellows interpretation Confirmed by fellow Chito Reynolds ([id number]) on 06/02/2021 10:00:28 AM Confirmed by MD Minor, Charlie ([id number]) on 06/02/2021 10:02:38 AM MUSE SYSTEM 06/02/2021 6:16 AM EDT 06/02/2021 10:02 AM EDT Elias Hassan APRN ECG ORDERABLES Performing Organization Address City/[facility] Co de Phone Number MUSE SYSTEM * Heparin (unfractionated) Level (06/02/2021 3:14 AM EDT) UF Heparin 0.23 IU/mL [facility] Comment: Specimen drawn more than one [...] Lab Elias Hassan APRN HEMATOLOGY ORDERABLE S [facility] [place] [address] * (ABNORMAL) Differential, Automated (06/02/2021 3:14 AM EDT) Neutrophil % 57.6 % [facility] Neutrophil Absolute 6.01 1.70 - 6.10 x10(3)/ L [facility] Lymph % 25.5 % [facility] Lymphocytes Abs 2.7 0.9 - 3.2 x10(3)/ L [facility] Monocyte % 8.6 % [facility] Monocyte Abs 0.9 0.3 - 0.9 x10(3)/[facility] Eos % 5.9 % [facility] Eosinophils Abs 0.6(H) 0.0 - 0.4 x10(3)/[facility] Basophil % 1.2 % [facility] Baso Absolute 0.1 0.0 - 0.1 x10(3)/ L [facility] Immature Gran % 1.20 % [facility] Comment: Immature granulocytes(IG's)percentage and absolute count will include metamyelocytes, myelocytes, and promyelocytes. Blood smears from CBCs yielding IG's will be scanned manually for concordance. If this scan disagrees with the automated IG or if promyelocytes are noted, a manual differential will be performed. Immature Gran Absolute 0.12(H) 0.00 - 0.04 x10(3)/ L [facility] Blood 06/02/2021 3:14 AM EDT 06/02/2021 4:37 AM EDT Narrative Resulting Agency Comment Spec In Lab Elias Hassan APRN HEMATOLOGY ORDERABLE S Performing Organization Address City/[facility]/ZIP Co de Phone Number [facility] [place] [address] * (ABNORMAL) Hemogram (06/02/2021 3:14 AM EDT) [facility] White Blood Cell 10.4(H) 4.0 - 9.5 x10(3)/ L [facility] Red Blood Cell 4.48 4.00 - 5.21 x10(6)/mc L [facility] Hemoglobin 12.4 11.7 - 15.5 g/dL [facility] Hematocrit 39.6 35.7 - 45.8 % [facility] Mean Cell Volume 88.4 82.6 - 94.4 fL [facility] Mean Cell Hemoglobin 27.7 27.1 - 32.0 pg [facility] Mean Cell Hemoglobin Concentration 31.3(L) 31.7 - 35.0 g/dL [facility] Platelet 427(H) 145 - 357 x10(3)/[facility] RDW Standard Deviation 45.7 37.0 - 46.0 [facility] RDW coefficient of variation 14.2(H) 11.5 - 14.1 % [facility] Mean Platelet Volume 9.5 7.6 - 12.9 fL [facility] NRBC% auto 0.0 % [facility] NRBC Absolute 0.000 0.000 - 0.000 x10(3)/[facility] Blood 06/02/2021 3:14 AM EDT 06/02/2021 4:37 AM EDT Narrative Resulting Agency Comment Spec In Lab Elias Hassan APRN HEMATOLOGY ORDERABLE S [facility] [place] [address] * (ABNORMAL) BMP w/fasting Glucose (06/02/2021 3:14 AM EDT) [facility] Glucose Fasting 114(H) 65 - 99 mg/dL [facility] Comment: ?Fasting* Glucose Interpretive [...] of Diabetes Mellitus, Position Statement from the [place] Diabetes Association. ??Diabetes Care, Volume 33, Supplement 1, Mar 2009 Blood Urea Nitrogen 16 8 - 18 mg/dL [facility] Creatinine 0.74 0.70 - 1.20 mg/dL [facility] Sodium 138 135 - 145 mmol/L [facility] Potassium 4.2 3.5 - 5.0 mmol/L [facility] Comment: Please note: ??Patients with WBC >100,000 may have falsely elevated Potassium levels. ??For accurate Potassium quantification in these patients send serum separator tube (gold top) for subsequent determinations. ??Contact the Clinical Chemistry Laboratory if there are any questions. Chloride 102 98 - 107 mmol/L [facility] Carbon Dioxide 25 22 - 31 mmol/L [facility] Anion Gap 11 5 - 15 mmol/L [facility] Calcium 8.5 8.5 - 10.5 mg/dL [facility] Est Glomerular Filtration Rate 89 >=60 mL/min/1. 73 m?? [facility] Comment: This patient? s [...] In Lab Elias Hassan APRN CHEMISTRY ORDERABLES Performing Organization Address City/[facility]/ZIP Co de Phone Number [facility] [place] [address] * Triglyceride (06/02/2021 3:14 AM EDT) Triglyceride 203 mg/dL [facility] Comment: Average Risk/Lower Risk: <150 mg/dL Borderline High Risk: 150-199 mg/dL High Risk: 200-499 mg/dL Very High Risk: >sa=743 mg/dL Blood 06/02/2021 3:14 AM EDT 06/02/2021 4:37 AM EDT Narrative Resulting Agency Comment Spec In Lab Elias Hassan POTTERY STRIPER CHEMISTRY ORDERABLES Performing Organization Address City/[facility]/ZIP Co de Phone Number [facility] [place] [address] * HDL/Cholesterol Profile (06/02/2021 3:14 AM EDT) Cholesterol, Total 166 mg/dL [facility] Comment: Lower Risk: <200 mg/dL Average Risk: 200-239 mg/dL Higher Risk: >lk=385 mg/dL HDL Cholesterol 37 mg/dL [facility] Comment: Males: ?? Higher Risk: <40 mg/dL Females: ?? Higher Risk: <50 mg/dL Cholesterol/HDL Ratio 4.5 ratio [facility] Chol/HDL Interpretation See Note [facility] Comment: Lipid management should be guided by a patient? s ASCVD risk, goals and preferences. ACC/AHA Guidelines recommend high intensity statin if clinical ASCVD or LDL greater than or equal to 190 mg/dL. http://AirKasturl.com/IIR-LTT-Bpfgbtuoo Measure LDL if Total Cholesterol minus HDL Cholesterol is greater than 220 mg/dL. Adults aged 40-75 with LDL 70-189 mg/dL should have their 10 year ASCVD risk estimated with the ACC/AHA ASCVD risk senior estimator http://tools.acc.org/BRDFC-Sfcm-Ehhwzxadx/ Statin should be discussed if risk greater [...] Agency Comment Spec In Lab Elias J StudentboxN CHEMISTRY ORDERABLES Performing Organization Address City/[facility]/ZIP Co de Phone Number [facility] [place] [address] * LDL Cholesterol, Direct (06/02/2021 3:14 AM EDT) LDL Cholesterol, Direct 102 mg/dL [facility] Comment: Lowest Risk: <100 mg/dL Lower Risk: 100-129 mg/dL Borderline High Risk: 130-159 mg/dL High Risk: 160-189 mg/dL Very High Risk: >ti=868 mg/dL Blood 06/02/2021 3:14 AM EDT 06/02/2021 4:37 AM EDT Narrative Resulting Agency Comment Spec In Lab Elias Sharmaine StudentboxN CHEMISTRY ORDERABLES [facility] [place] [address] * Hemoglobin A1c (06/02/2021 3:14 AM EDT) Hemoglobin A1c 5.6 4.3 - 5.6 % [facility] Comment: Reference Range: 4.3 [...] Mellitus, Diabetes Care 2013; 36: Suppl. 1, V07-87 Estimated Average Glucose 115 mg/dL [facility] Comment: eAG equivalents for [...] into estimated average glucose values. ??Diabetes Care 2008:31(8):3850-4752. Blood 06/02/2021 3:14 AM EDT 06/02/2021 4:37 AM EDT Narrative Resulting Agency Comment Spec In Lab Elias Hassan APRN CHEMISTRY ORDERABLES [facility] [place] [address] * (ABNORMAL) Troponin (06/02/2021 3:14 AM EDT) Troponin-T 1.89(H) 0.00 - 0.00 ng/mL [facility] Comment: The 99th percentile for Troponin T is less than 0.01 ng/mL, any detectable cTnT concentration using this assay should be considered elevated. According to the third universal definition of myocardial infarction the following criteria with a clinical presentation consistent with acute myocardial ischemia meets the diagnosis for a myocardial infarction ([place]). Detection of a rise and/or fall of cTnT, with at least one value greater than the 99th percentile (> or = 0.01) and with at least one of the following ?? Symptoms of ischemia ?? New or presumed new significant UR-xqjzvqd-Y wave (ST-T) changes or new left bundle [...] additional sample may be indicated. Reference: Third [place] Definition of Myocardial Infarction. Journal of the [employer] College of Cardiology 2012;60:1581-98 Blood 06/02/2021 3:14 AM EDT 06/02/2021 4:37 AM EDT Narrative Resulting Agency Comment Spec In Lab Elias Hassan APRN CHEMISTRY ORDERABLES [facility] [place] [address] * Heparin (unfractionated) Level (06/01/2021 9:01 PM EDT) UF Heparin 0.37 IU/mL [facility] Comment: Heparin (anti-Xa) levels should be [...] APRN HEMATOLOGY ORDERABLE S Performing Organization Address City/[facility]/ZIP Co de Phone Number [facility] [place] [address] * (ABNORMAL) Troponin (06/01/2021 9:01 PM EDT) Troponin-T 1.97(H) 0.00 - 0.00 ng/mL [facility] Comment: result rechecked-nb The 99th percentile for Troponin T is less than 0.01 ng/mL, any detectable cTnT concentration using this assay should be considered elevated. According to the third universal definition of myocardial infarction the following criteria with a clinical presentation consistent with acute myocardial ischemia meets the diagnosis for a myocardial infarction ([place]). Detection of a rise and/or fall of cTnT, with at least one value greater than the 99th percentile (> or = 0.01) and with at least one of the following ?? Symptoms of ischemia ?? New or presumed new significant GL-defucge-F wave (ST-T) changes or new left bundle [...] additional sample may be indicated. Reference: Third [place] Definition of Myocardial Infarction. Journal of the [employer] College of Cardiology 2012;60:1581-98 Blood 06/01/2021 9:01 PM EDT 06/01/2021 9:13 PM EDT Narrative Resulting Agency Comment Spec In Lab Elias Hassan APRN CHEMISTRY ORDERABLES Performing Organization Address [facility]/ZIP Co de Phone Number [facility] [place] [address] * Heparin (unfractionated) Level (06/01/2021 2:52 PM EDT) [facility] UF Heparin 0.39 IU/mL [facility] Comment: Heparin (anti-Xa) levels should be [...] Lab Elias Hassan APRN HEMATOLOGY ORDERABLE S [facility] [place] [address] * (ABNORMAL) Differential, Automated (06/01/2021 2:52 PM EDT) [facility] Neutrophil % 65.7 % [facility] Neutrophil Absolute 8.63(H) 1.70 - 6.10 x10(3)/mc L [facility] Lymph % 22.2 % [facility] Lymphocytes Abs 2.9 0.9 - 3.2 x10(3)/mc L [facility] Monocyte % 6.9 % [facility] Monocyte Abs 0.9 0.3 - 0.9 x10(3)/mc L [facility] Eos % 3.4 % [facility] Eosinophils Abs 0.4 0.0 - 0.4 x10(3)/mc L [facility] Basophil % 1.1 % [facility] Baso Absolute 0.2(H) 0.0 - 0.1 x10(3)/[facility] Immature Gran % 0.70 % [facility] Comment: Immature granulocytes(IG's)percentage and absolute count will include metamyelocytes, myelocytes, and promyelocytes. Blood smears from CBCs yielding IG's will be scanned manually for concordance. If this scan disagrees with the automated IG or if promyelocytes are noted, a manual differential will be performed. Immature Gran Absolute 0.09(H) 0.00 - 0.04 x10(3)/[facility] Blood 06/01/2021 2:52 PM EDT 06/01/2021 3:04 PM EDT Narrative Resulting Agency Comment Spec In Lab Elias Hassan APRN HEMATOLOGY ORDERABLE S [facility] [place] [address] * (ABNORMAL) Hemogram (06/01/2021 2:52 PM EDT) White Blood Cell 13.2(H) 4.0 - 9.5 x10(3)/[facility] Red Blood Cell 4.97 4.00 - 5.21 x10(6)/[facility] Hemoglobin 14.1 11.7 - 15.5 g/dL [facility] Hematocrit 42.9 35.7 - 45.8 % [facility] Mean Cell Volume 86.3 82.6 - 94.4 fL [facility] Mean Cell Hemoglobin 28.4 27.1 - 32.0 pg [facility] Mean Cell Hemoglobin Concentration 32.9 31.7 - 35.0 g/dL [facility] Platelet 452(H) 145 - 357 x10(3)/[facility] RDW Standard Deviation 44.4 37.0 - 46.0 fL [facility] RDW coefficient of variation 14.2(H) 11.5 - 14.1 % [facility] Mean Platelet Volume 9.0 7.6 - 12.9 fL [facility] NRBC% auto 0.0 % [facility] NRBC Absolute 0.000 0.000 - 0.000 x10(3)/mc L [facility] Blood 06/01/2021 2:52 PM EDT 06/01/2021 3:04 PM EDT Narrative Resulting Agency Comment Spec In Lab Elias Hassan APRN HEMATOLOGY ORDERABLE S [facility] [place] [address] * (ABNORMAL) Troponin (06/01/2021 2:52 PM EDT) Troponin-T 1.06(H) 0.00 - 0.00 ng/mL [facility] Comment: The 99th percentile for Troponin T is less than 0.01 ng/mL, any detectable cTnT concentration using this assay should be considered elevated. According to the third universal definition of myocardial infarction the following criteria with a clinical presentation consistent with acute myocardial ischemia meets the diagnosis for a myocardial infarction ([place]). Detection of a rise and/or fall of cTnT, with at least one value greater than the 99th percentile (> or = 0.01) and with at least one of the following ?? Symptoms of ischemia ?? New or presumed new significant WW-nnoamrl-S wave (ST-T) changes or new left bundle [...] additional sample may be indicated. Reference: Third [place] Definition of Myocardial Infarction. Journal of the [employer] College of Cardiology 2012;60:1581-98 Blood 06/01/2021 2:52 PM EDT 06/01/2021 3:04 PM EDT Narrative Resulting Agency Comment Spec In Lab Elias Hassan SREGIO CHEMISTRY ORDERABLES [facility] [place] [address] * EKG 12 Lead (06/01/2021 1:47 PM EDT) Pathologist [facility] Ventricular rate 77 BPM MUSE SYSTEM Atrial Rate 77 BPM MUSE SYSTEM P-R Interval 160 ms MUSE SYSTEM QRS Duration 78 ms MUSE SYSTEM Q-T Interval 404 ms MUSE SYSTEM QTC Calculated (Bezet) 457 ms MUSE SYSTEM Calculated P [place] 65 degrees MUSE SYSTEM Calculated R [place] 21 degrees MUSE SYSTEM Calculated T [place] 71 degrees MUSE SYSTEM INTERPRETATION Normal sinus rhythm Poor R-wave progression Otherwise normal ECG When compared with ECG of 18-JUN-2020 17:13, Sinus rhythm has replaced Ectopic atrial rhythm Confirmed by MD Trammell Danette ([id number]) on 06/02/2021 9:27:06 AM MUSE SYSTEM 06/01/2021 1:47 PM EDT 06/02/2021 9:27 AM EDT Elias Schmid King SERGIO ECG ORDERABLES Performing Organization Address City/[facility] Co de Phone Number MUSE SYSTEM * COVID-19 PCR (06/01/2021 1:27 PM EDT) [facility] SARS-CoV-2 RNA (Rapid) Not Detected Not Detected [facility] Comment: This result should [...] using the Simplexa COVID-19 Direct Assay by [employer] as authorized by the FDA issued Emergency [...] Department of Pathology and Laboratory Medicine at [facility], certified under the Clinical Laboratory Improvement Amendments [...] fact sheets at the following FDA website: https://www.fda.gov/medical-devices/qvxudtmalvh-dtzvayl-6509-ihacz-35-wipcrunys- use-a fdoltibzgrfbb-ynovfnn-volidqp/gssgf-iwbxzyiuubw-mvfd SARS-CoV-2 Source NOTCHED BLADE LOADER Swab MA RY [facility] Nasopharyngeal Swab 06/02/19 1:27 PM EDT 06/01/2021 2:18 PM EDT Comment:Symptoms->Surveillan ce Narrative Resulting Agency Comment Spec In Lab Elias Hassan APRN MICROBIOLOGY - GENER AL ORDERABLES [facility] [place] [address] documented in this encounter Visit Diagnoses Not on filedocumented in this encounter Admitting Diagnoses Diagnosis NSTEMI [...] Given 06/02/2021 9:38 AM EDT 75 mg fentaNYL (pf) (50 mcg/mL) multi-dose injection ONCE PRN, Starting on Wed06/02/21 at 1154, Until Wed06/02/21 at 1250, Cath (Intra-Procedure), Routine Given 06/02/2021 11:59 AM EDT 25 mcg Given 06/02/2021 11:54 AM EDT 12.5 mcg fluticasone propionate (Flovent HFA) 110 mcg/actuation inhaler [...] 3:04 PM EDT 300 mg heparin (porcine) (1,000 units/mL) injection ONCE PRN, Starting on Wed06/02/21 at 1212, Until Wed06/02/21 at 1250, Cath (Intra-Procedure), Routine Given 06/02/2021 12:28 PM EDT 2,000 Units Given 06/02/2021 12:12 PM EDT 6,000 Units iohexoL (Omnipaque) (350 mg/mL) solution ONCE PRN, Starting on Wed06/02/21 at 1247, Until Wed06/02/21 at 1250, Cath (Intra-Procedure), Routine Given 06/02/2021 12:47 PM EDT 83 mLs levothyroxine (Synthroid) tablet 50 mcg 50 [...] Given 06/01/2021 2:38 PM EDT 50 mg midazolam (pf) (Versed) (1 mg/mL) multi-dose injection ONCE PRN, Starting on Wed06/02/21 at 1154, Until Wed06/02/21 at 1250, Cath (Intra-Procedure), Routine Given 06/02/2021 11:54 AM EDT 0.5 mg niCARdipine (Cardene) (100 mcg/mL) dilution (4TH GRADE MATH TEACHER) ONCE PRN, Starting on Wed06/02/21 at 1241, Until Wed06/02/21 at 1250, Intra-Operative (Intra-Procedure), Routine Given 06/02/2021 12:41 PM EDT 200 mcg nitroGLYcerin 100 mcg/mL intracoronary dilution ONCE PRN, Starting on Wed06/02/21 at 1209, Until Wed06/02/21 at 1250, Cath (Intra-Procedure), Routine Given 06/02/2021 12:09 PM EDT 150 mcg pantoprazole EC (Protonix) tablet 40 mg 40 mg, Oral, DAILY, First dose on Wed06/03/21 at 0900, Until Discontinued, DO NOT CRUSH OR OPEN Given 06/03/2021 9:11 AM EDT 40 mg tiotropium bromide (Spiriva Respimat) 2.5 mcg/actuation inhaler 2 puff 2 puff, Inhalation, DAILY, First dose on Wed06/01/21 at 2045, Until Discontinued, Must be primed prior to first administration, Routine traZODone (Desyrel) tablet 50 mg 50 mg, Oral, NIGHTLY, First dose on Wed06/01/21 at 2100, Until Discontinued, Routine Given 06/02/2021 8:41 PM EDT 50 mg Given 06/01/2021 8:50 PM EDT 50 mg verapamiL (Isoptin) (2.5 mg/mL) injection ONCE PRN, Starting on Wed06/02/21 at 1209, Until Wed06/02/21 at 1250, Administer over 2 Minutes, Cath (Intra-Procedure) Given 06/02/2021 12:22 PM EDT 2.5 mg Given 06/02/2021 12:09 PM EDT 2.5 mg documented in this encounter Active and [...] 0938 (Given - Provider: Precious Wood RN)1144 ([facility] Hold - Provider: Admin Adt - Reason: Transfer to a Procedural area)1456 ([facility] Unhold - Provider: Admin Adt) 0910 (Given - Provider: Elias Overton RN) atorvastatin (Lipitor) tablet 80 mg 80 mg, Oral, EVERY EVENING, First dose on 06/01/21 at 1700, Until Discontinued, Routine 1721 (Given - Provider: Precious Wood RN) 1144 ([facility] Hold - Provider: Admin Adt - Reason: Transfer to a Procedural area)1456 ([facility] Unhold - Provider: Admin Adt)1730 (Given - Provider: Precious Wood RN) clopidogreL (Plavix) tablet 75 mg 75 mg, Oral, DAILY, First dose on Wed06/02/21 at 0900, Until Discontinued, Routine 0938 (Given - Provider: Precious Wood RN)1144 ([facility] Hold - Provider: Admin Adt - Reason: Transfer to a Procedural area)1456 ([facility] Unhold - Provider: Admin Adt) 0911 (Given [...] Procedural area)1456 ([facility] Unhold - Provider: Admin Adt)1504 (Given - Provider: Precious Wood RN) levothyroxine (Synthroid) tablet 50 mcg 50 mcg, Oral, EVERY MORNING, First dose on Wed06/02/21 at 0700, Until Discontinued, Routine 0608 (Given - Provider: Deandra Young RN)1144 ([facility] Hold - Provider: Admin Adt - Reason: Transfer to a Procedural area)1456 ([facility] Unhold - Provider: Admin Adt) 0603 (Given - Provider: Deandra Young RN) losartan (Cozaar) tablet 50 mg 50 mg, Oral, DAILY, First dose on Wed06/01/21 at 1500, Until Discontinued, Routine 1438 (Given - Provider: Precious Wood RN) 0938 (Given - Provider: Precious Wood RN)1144 ([facility] Hold - Provider: Admin Adt - Reason: Transfer to a Procedural area)1456 ([facility] Unhold - Provider: Admin Adt) 0911 (Given [...] parameters not met)0517 (Given - Provider: Deandra Young RN) pantoprazole EC (Protonix) tablet 40 mg [...] area)1300 (Stopped - Provider: Precious Wood RN)1456 ([facility] Unhold - Provider: Admin Adt) sodium chloride [...] indicated. , Routine 0208 (Given - Provider: Deanrda Young RN)1144 ([facility] Hold - Provider: Admin [...] Jc Mckeon) niCARdipine (Cardene) (100 mcg/mL) dilution (4TH GRADE MATH TEACHER) (CANCELED) ONCE PRN, Starting on Wed06/02/21 at [...] Routine documented in this encounter Care Teams Loan Specialist Relationship Specialty Start Date End Date Nya Hernandez APRN [address] [place] [id number] PCP - General Family Medicine 05/07/21 documented as of this encounter
--- OUTSIDE RECORDS SUMMARY | 2023-12-28 16:20 | XMS_ITS | Encounter Summary ---
[place] [address] Care Team Providers Care Money Position Officer Name Role Phone Unavailable Primary Care Provider Unavailabl e Encounter Details Date Type Department Care Team (Late st Contact Info) Description 10/29/2020 Telephone [place] [id number] Ariela Lozada, RN Social History Tobacco Use Types Packs/Day [...]
--- OUTSIDE RECORDS SUMMARY | 2023-12-28 16:20 | XMS_ITS | Encounter Summary ---
[facility] [place] [address] Care Team Providers Care Television Parts Tester Name Role Phone Unavailable Primary Care Provider Unavailabl e Encounter Details Date Type Department Care Team (Late st Contact Info) Description 11/14/2020 [place] [id number] Aissatou Quiros Social History Tobacco Use Types Packs/Day Years [...] encounter Miscellaneous Notes * Telephone Encounter - Aissatou Quiros - 11/14/2020 12:13 PM EDT Eliza Griffin [id number] Diagnosis/Indication: s/p surgical repair perforated duodenal ulcer, will need EGD in approximately6-8w to evaluate for full healing 1. Have you ever had a/an Upper Endoscopy before? No If yes, did you have any problems with the procedure? No What type of sedation was used: None 2. Do you take any blood thinners or have you been diagnosed with a bleeding disorder that increases your risk of bleeding with procedures? No 3. Do you have a Pacemaker or Defibrillator device? No 4. Are you a diabetic? No 5. Do you have any Allergies to Eggs, Latex or Medications? Yes: EDH 6. Do you take any Oral Iron Supplements (Including multi-vitamins)? No 7. Do you have a history of three or more abdominal surgeries? No 8. Have you had a problem with sedation or anesthesia? No 9. Do you use a c-pap machine or oxygen tank? Neither 10. Do you take prescription narcotic pain medications, including suboxone or methodone? No 11. Do you have a preference regarding the gender of your provider? No Preference 12. Is there any other information you would like to us to note for the provider and nursing team who will perform your case? No 13. Say to patient: You must have a responsible democrat who will drive you to your procedure, stay oncampus for the entire duration of your procedure, and drive you home from your procedure? *Please Verify the height and weight, and adjust if height and/or weight have changed* Estimated body mass index is 25.15 kg/m?? as calculated from the following: Height as of 07/17/20: 160 cm (5' 3). Weight as of 07/17/20: 64.4 kg (142 lb). *Delete if not needed* Height: 5'4 Weight: 167 BMI: 28.7 Age:55 y.o. documented in this encounter Plan of Treatment Not on file documented as of this encounter Visit Diagnoses Not on filedocumented in this encounter
--- OUTSIDE RECORDS SUMMARY | 2023-12-28 16:20 | XMS_ITS | Encounter Summary ---
Author Organization [facility] [place] [address] Care Team Providers Care Mechanical Applications Engineer Name Role Phone Unavailable Primary Care Provider Unavailabl e Encounter Details Date Type Department Care Team (Late st Contact Info) Description 07/17/2020 11:00 AM EDT Office [place] [address] Rebecca Acevedo TELEPHONIC NURSE CASE MANAGER [facility] [place] [address] Unilateral AKA, right Social History Tobacco Use Types Packs/Day Years [...] Sign Reading Time Taken Comments Blood Pressure 134/76 07/17/2020 11:16 AM EDT Pulse 89 07/17/2020 11:16 AM EDT Temperature - - Respiratory Rate - - Oxygen Saturation - - Inhaled Oxygen Concentration - - Weight 64.4 kg (142 lb) 07/17/2020 11:16 AM EDT Reported Height 160 cm (5' 3) 07/17/2020 11:16 AM EDT Re ported Body Mass Index 25.15 07/17/2020 11:16 AM EDT documented in this encounter Progress Notes * Ranger, Dwayne R, CCMA - 07/17/2020 11:00 AM EDT Handwashing performed. Patient requested abdominal wounds to be looked at as well. Mepelix dressings removed from abdominal wounds. Handwashing performed. * Rebecca Acevedo APRN - 07/17/2020 11:00 AM EDT Images from the original note were not included. 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 Thigh muscles??with fatty replacement and fibrosis. SFA and femoral vein were identified and ligated with double suture ligation. Skin closed with tamra. Dressed with bacitracin, Xeroform, Kerlix gauze, MALI wrap, and Ioban Hospital Course: #Duodenal Ulcer Perforation On admission, the patient was taken directly to the operating room by??General??Surgery for an exploratory laparotomy. ??She was able to tolerate this procedure without intraoperative complications. ??Surgical exploration revealed over 2L of bilious ascites which was removed??from the abdomen as well as a 3cm perforation??in??the first portion of the duodenum, extending to include the pylorus. ??As a temporizing measure, the perforation was closed primarily with Abthera placement.?She?wasthen transported back to the ICU postoperatively with plans for reexploration/additional surgical intervention later 05/12.??She was started on IV protonix as well as??antibiotics??to cover intraabdominal sources/H. Pylori??given??her??persistent hypotension and elevated lactate suspicious for ongoing hypovolemic/septic shock. She was started on resuscitative IV fluids and received several boluses.She??also required pressors to maintain MAPs >60, initially on 10 of levo and low-dose vaso. ??Her??hemoglobin remained stable at 16.1 without indication for transfusion. ?? On 05/12, she??was taken for more definitive management with a??duodenojejunostomy in a Shari-en-Y fashion??which??she tolerated without complication.?She was??continued on IV Protonix. From??05/12??to??05/14, her??remained distended and moderately firm but with bladder pressures less than 20 suggesting against abdominal compartment syndrome. ??Per Gastroenterology, antibiotic coverage for H. Pylori??was??deferred pending stool antigen/pathology confirmed positive diagnosis. H. Pylori and C.diff??turned out??negative??so antibiotic therapy for??H pylori was stopped. ??She was started on ceftriaxone/flagyl for general coverage.??She was??later narrowed to a course of Zosyn which ended 05/23. She w as restarted on Zosyn 05/27 and also vancomycin from 05/27-05/[address] C/A/P showed multiple enhancing fluid collections, in which IR subsequently placed 3 drains.??A CT A/P on 06/03 was??not concerning for new intra-abdominal infection and these drains were sequentially removed. ?? Her wound vac was changed regularly until 06/26 when the wound was shallow enough to warrant coverage with aquacel Ag and a mepilex. This should be changed MWF. ?? #RLE Acute Limb Ischemia?? On arrival, the patient was found to have a mottled RLE without distal signals/pulses and poor passive flexion/extension of the ankle. ??Per vascular surgery, the patient most likely suffered profound ischemia secondary to a chronic right ABRIL occlusion exacerbated by the low flow state associated with her??hypovolemia. ?? In the afternoon of??05/11,??the??patient received a right guillotine through knee amputation??which was successful w/o intraoperative complications. ?? On 05/12 s/p??duodenojejunostomy,??Mrs. Moya was found to have a mottled L hand distal to the level of the arterial line w/o dopplerable pulses. She was evaluated at bedside by vascular surgery where an ulnar pulse was palpable, supportive care/warming was recommended.?Patient's vascular status continued??to be monitored daily. ??On 05/13, the patient had an absent right femoral pulse. ??She was sent for a CTA with runoff which showed chronic right iliac stenosis but no acute interval changesand some degree of patent flow. ??Right femoral pulse was eventually palpable again. Her right knee/post surgical site continued to be slightly mottled and cool above the amputation line. ??Vascular surgery was made aware with plans for eventual revascularization to heal formalization of AKA and defered formal AKA until 06/13. Her amputation developed some erythema with some serosanguinous drainageon 06/25 and the patient was started on a course of augmentin to end 07/03. The patient remained afebrile and HDS throughout and there was no purulent drainage. She will follow up with vascular surgerynext week for staple removal and wound check. ?? #Respiratory Failure?? On admission to the ICU, she??was intubated and sedated, and she remained so on??propofol and fentanyl (intermittently on Precedex) with stable minute ventilation and respiratory status until the evening of 05/13, at which point she was de-escalated??to pressure support as part of the ventilator weaning strategy. ??Her??respiratory status acutely decompensated and she began double stacking her breaths and became increasingly acidotic. ??She was transitioned back to volume control and sedation wasincreased but she??continued to be dyssynchronous with the vent. ??The underlying etiology of her??worsening respiratory status??was??likely a combination of fluid overload due to aggressive resuscitation s/p gastric perforation as well??and pulmonary edema. She was started on CVVH for gentle diuresis given??her ongoing??pressor requirement. Access was??a challenge,??and she required multiple catheter exchanges before??she tolerated??CVVH. Eventually, we were able to use CVVH consistently to remove fluid,??and she tolerated this well with no pressor requirements. Her fluid status improved andwas extubated on??05/23/20. ?? She was tolerating HFNC/mask??with adequate O2 saturations until 05/27/20??when??she had an acute desaturation??around the time of a turn in bed.??Her??O2 requirements??persistently increased??until the decision was made to intubate her.??She tolerated this well, however she was only saturating 88-92 % despite 100% FiO2 and confirmation of correct tube placement. Upon sitting her up and suctioning,her saturations rapidly improved to 100%, likely secondary to dislodgement of a mucus plug. ?? After transfer to the floor, her oxygen was weaned and she was satting well on a few liters NC. Shehad an aspiration event after emesis with a CT chest on 06/06 demonstrating likely pneumonia. She wascontinued on zosyn for this for a short course ending on 06/14. She intermittently will need O2 supplementation, but for the most part can be on RA without issue. ?? #Acute pulmonary embolus CTA chest after re-intubation revealed a nonocclusive segmental PE, for which heparin gtt was started 05/28. This was transitioned to therapeutic lovenox shortly after her formalized AKA to decrease her total volume in. ?? #Acute oliguric renal failure?? - Secondary to LESLIE in setting of sepsis due to bowel perforation and limb ischemia with elevated CK - Baseline creatinine unknown (3.74 at presentation) - Started on CVVH 05/15 for control of acidosis and volume overload - Filter managed by Nephrology, mostly run even to negative depending on pressor requirement and volume status. - CVVH held 05/30 and Lasix 100mg given IV with good response. Has been off the filter since, with persistent good response to IV Lasix. ?? #Bilateral pleural effusions, likely related to volume overload in setting of oliguric acute renal failure - Bilateral IR pigtail chest tubes placed 05/15 with large amount of output. These were removed on 05/22 with post-pull CXRs showing no pneumothorax and no radiographically evident pleural effusion. ?? #Non-ACS Demand ischemia Multiple episodes of tachycardia to 150 on 06/03, nonsustained, no associated hypotension. EKG showed sinus tachycardia. Cardiology was consulted for troponinemia to 1.1, recommending conservative treatment for non-ACS demand ischemia. She was continued on ASA and a heparin gtt. She again experienced crushing chest pain on 06/18 with an EKG unrevealing but troponins elevated to 0.3. Cardiology was re-engaged and an echo was performed which was within normal limits. Troponins were no longer trended per cardiology recommendations and again attributed this to a type 2 NSTEMI. Her chest pain resolved the following morning. ?? #Nutrition She was??noted to have a significant caloric deficiency and was??started on tube feeds but given her multiple returns to the OR, these were??frequently??held. We attempted to advance her tube feeds but she was noted to have return via the NG tube. She was started on TPN on 05/21 for caloric deficiency to supplement her nutrition status. She tolerated this well. Eventually,??her tube feeds were rest arted and advanced to goal without return via her NG tube and her TPN was stopped. Her GJ tube continued to reflux into the G portion with TFs going into the J portion and she was started on reglan, which was slowly increased and seemed to help some. However, she still had this persistent reflux issue of TFs coming out the G portion of the GJ. She was evaluated by speech and was cleared for a diet. Her GJ tube was removed on 06/26 as she was tolerating a diet and no longer would need TFs via GJ for nutrition since she was taking in good PO. Today: She is working hard at rehab Denies pain, fever, chill, N/V, SOB, chest pain, problems with R AKA incision. She is looking forward to getting prothesis. Wishes for me to look at abd wound. Right AKA incision intact with tamra removed No cellulitis. Abd wound clean with good granulation, minimal skin irritates around wound. No cellulitis ?? Picture below: Abdominal incisional wound followed by General surgery Assessment/Plan. 55 yo female with long complicated hospital stay 05/11/20- 06/27/20, including R AKA for CLI. Completion AKA 06/13/20. Incision healing tamra removed NO cellulitis. Abd wound clean no cellulitis Continue wound care and use skin prep to skin around wound. Lovenox should be addressed by PCP or General Surgery. Ms Moya may proceed with R AKA strawhat sizer and prosthetic fitting. Ms Moya has the ability or potential for ambulation with the ability to traverse low level environmental barriers such as curbs, stairs or uneven surfaces. Typical for the limited community ambulator. Visitreviewed with dr Valentina PADILLA PRN. She does have f/u next week 07/25/20 with Crystal Sheela TELEPHONIC NURSE CASE MANAGER in General Surgery. ?? documented in this encounter Plan of Treatment Not on file documented as of this encounter Procedures Procedure Name Priority Date/Time Associated Diagnosis Comments ORDS - PROVIDER CARE SCAN 07/08/2020 12:00 AM EDT documented in this encounter Results * SCAN DOC: ORDS - PROVIDER CARE (07/08/2020 12:00 AM EDT) Narrative 07/08/2020 12:00 AM EDT Ordered by an unspecified provider. Scanning Provider MEDIA MGR SCAN EXT O RDR/RSLT documented in this encounter Visit Diagnoses Diagnosis Unilateral AKA, right documented in this encounter
--- OUTSIDE RECORDS SUMMARY | 2023-12-28 16:20 | XMS_ITS | Encounter Summary ---
Author Organization [facility] [place] Hernandez [address] Care Team Providers Care Futures Trader Name Role Phone Nya Hernandez SERGIO Primary Care Provider [phone] Encounter Details Date Type Department Care Team (Late st Contact Info) Description 05/13/2021 Ancillary Procedure Radiology Library at [facility] [place] [address] Sugey Vasquez, STATE HISTORICAL SOCIETY DIRECTOR [address] [place] [address] Social History Tobacco Use Types Packs/Day Years [...] STORAGE ONLY CT ABDOMEN AND PELVIS Routine 05/13/2021 12:00 AM EST documented in this encounter Results * Film Library- Storage Only CT Abdomen & Pelvis (05/13/2021 12:00 AM EST) Narrative [facility] - 05/20/2021 9:44 AM EDT This exam is auto-finalizing. It's purpose is for storage only. Sugey Vasquez APRN IM FILM LIBRARY ORD ERABLES [facility] [place], [place] documented in this encounter Visit Diagnoses Not on filedocumented in this encounter Care Teams Futures Trader Relationship Specialty Start Date End Date Nya Hernandez APRN [address] [place] [id number] PCP - General Family Medicine 05/07/21 documented as of this encounter
--- OUTSIDE RECORDS SUMMARY | 2023-12-28 16:20 | XMS_ITS | Encounter Summary ---
Author Organization [facility] [place] [address] Care Team Providers Care Box Stacker Name Role Phone Unavailable Primary Care Provider Unavailabl e Encounter Details Date Type Department Care Team (Late st Contact Info) Description 08/14/2020 9:30 AM EDT Office Visit [place] [address] Crystal Coker, CRIMINAL INVESTIGATOR [employer] [facility] [place] [address] Surgery follow-up Social History Tobacco Use Types [...] this encounter Progress Notes * Crystal Coker, CRIMINAL INVESTIGATOR [employer] - 08/14/2020 9:30 AM EDT Eliza Moya presents to general surgery clinic for wound check She was last seen on 07/25/20. Reports she has been feeling well over the interval. lEiza is recuperating at [facility] in [facility]. ?? She tells me she is feeling [...] the skin.I cleaned the wound and placed mepilex ag with mepilex border to cover. No erythema or fluctuance. No odor. ?? Impression/plan: Clean wound Wound care as above change MWF FU 1 month for wound check I am happy to see her back on an as needed basis over the interval documented in this encounter Plan of Treatment Not on file documented as of this encounter Visit Diagnoses Diagnosis Surgery follow-up Follow-up examination, following unspecified surgery documented in this encounter
--- OUTSIDE RECORDS SUMMARY | 2023-12-28 16:20 | XMS_ITS | Encounter Summary ---
[place] [address] Care Team Providers Care Cloth Checker Name Role Phone Nya Hernandez APRN Primary Care Provider [phone]- [phone] Encounter Details Date Type Department Care Team (Late st Contact Info) Description 07/31/2021 Telephone [place] [id number] Maddy Guerin Social History Tobacco Use Types Packs/Day Years [...] on filedocumented in this encounter Care Teams Cloth Checker Relationship Specialty Start Date End Date Nya Hernandez APRN [address] [place] [address] PCP - General Family Medicine 05/07/21 documented as of this encounter
--- OUTSIDE RECORDS SUMMARY | 2023-12-28 16:20 | XMS_ITS | Encounter Summary ---
[place] [address] Care Team Providers Care Learning Support Teacher Name Role Phone Nya Hernandez SERGIO Primary Care Provider +1- [phone] Reason for Referral * Consultation (Routine) - Closed Specialty Diagnoses / Procedures Referred By Contac t Referred To Contact Primary Care Diagnoses Chronic obstructive pulmonary disease, unspecified COPD type Whit Nance MD [facility] [place] [address] [facility] [place] [address] Referral ID Status Reason Start Date Expiration Date V isits Requested Visits Authorized [id number] Closed Consult, Test & Treat 07/29/2021 07/29/2022 1 1 * Consultation (Routine) - Closed Specialty Diagnoses / Procedures Referred By Contac t Referred To Contact Diagnoses Chronic obstructive pulmonary disease, unspecified COPD type Whit Nance MD [facility] [place] [place] [address] Referral ID Status Reason Start Date Expiration Date V isits Requested Visits Authorized [id number] Closed Consult, Test & Treat 07/29/2021 01/25/2022 1 1 Reason for Visit * Reason Comments Establish Care * Consultation (Routine) - Closed Specialty Diagnoses / Procedures Referred By Tomas t Referred To Contact General Surgery Diagnoses Hernia of abdominal wall Lauri De La Torre MD [address] [place] [address] [facility] [address] [place] [address] Referral ID Status Reason Start Date Expiration Date V isits Requested Visits Authorized [id number] Closed Consult, Test & Treat PCP Updated and/or Approved 05/20/2021 05/20/2022 6 6 Encounter Details Date Type Department Care Team (Late st Contact Info) Description 07/29/2021 9:30 AM EDT Office [place] [address] Whit Nance MD [facility] [place] [place] [address] Incisional hernia, without obstruction or gangrene; Chronic obstructive pulmonary disease, unspecified COPD type; Coronary artery disease, unspecified vessel or lesion type, unspecified whether angina present, unspecified whether [place] or transplanted heart Social History Tobacco Use Types Packs/Day Years [...] Sign Reading Time Taken Comments Blood Pressure 119/71 07/29/2021 9:27 AM EDT Pulse 71 07/29/2021 9:27 AM EDT Temperature - - Respiratory Rate 18 07/29/2021 9:27 AM EDT Oxygen Saturation 97% 07/29/2021 9:27 AM EDT Inhaled Oxygen Concentration - - Weight 90.4 kg (199 lb 4.8 oz) 07/29/2021 9:27 A M EDT Height - - Body Mass Index 35.31 06/01/2021 1:05 PM EDT documented in this encounter Progress Notes * Whit Nance MD - 07/29/2021 9:30 AM EDT [facility] General Surgery History and Physical History of Present Illness: Eliza Moya is a 56 y.o. female with a history of COPD on 2L NC, PAD s/p right AKA, HTN, CAD s/p PCI 05/27, and paroxysmal atrial fibrillation who referred by Sugey Vasquez APRN for an incisional hernia. Ms. Moya had a complicated [facility] was hospitalized at this time for a perforated duodenal ulcer and critical limb ischemia requiring a right AKA and multiple exploratory laparotomies. See course below: 05/11- ex-lap, washout, closure of duodenal perforation, abthera 05/12- donavan-en-y duodenojejunostomy with abdominal closure 05/16- Ex-lap to rule out ischemia, abthera 05/18- ex-lap, partial omentectomy, abthera 05/20- ex-lap, partial omentectomy, fascial closure, wound vac Ultimately, she had a wound vac and thinks things healed up around August. She was discharged home from rehab in September 2020. She still has some drainage from her wound an puts ointments on it daily. Shesays prior to May 2020, she had a small umbilical hernia. She noticed a bulge almost immediately after she was discharged. It is getting larger. It is uncomfortable but not necessarily painful. Prior to this hospitalization she was drinking 24oz cans of beer daily. She would go through a case in 3 days. She started drinking heavily 7-8 years ago but stopped after this hospitalization last year. Recent admission for an NSTEMI type 1 this May 2021. Had a left heart cath 06/02/21 and had a drugeluding stent placed. She is currently on DAPT with aspirin and plavix. She is also on eliquis but there are plans to stop aspirin and continue plavix and eliquis. She was told she needs to be on DAPT for 4-6 months. Hernia Risk Factors: ??? Constipation- no ??? Frequent Heavy Lifting- transfers ??? Straining with urination- no ??? Cough- yes ??? Smoking history- she is trying to stop smoking; she wants to go cold turkey. 41 year smoking history 1.5ppd. Does NOT follow regularly with a Electro Winning Operator. Her daughter in law caught her smokinglast week. ??? Weight gain- 50lbs in the last year; was 146lbs when discharged from rehab in September 2020. ??? BMI- 35 ??? Hemoglobin A1c- n/a ? ? >4 METS- no Past Medical History: Patient Active Problem List Diagnosis Code ??? Perforated viscus R19.8 ??? NSTEMI (non-ST elevated myocardial infarction) I21.4 ??? CAD (coronary artery disease) I25.10 ??? COPD (chronic obstructive pulmonary disease) J44.9 ??? HTN (hypertension) I10 ??? Hypothyroid E03.9 ??? PAD (peripheral artery disease) I73.9 Past Surgical History: Past Surgical History: Procedure Laterality Date ??? CT PERITONEAL DRAINAGE 05/27/2020 CT Guided Drain Peritoneal 05/27/2020 [facility] RAD CAT SCAN ??? CT PERITONEAL DRAINAGE 05/27/2020 CT Guided Drain Peritoneal 05/27/2020 [facility] RAD CAT SCAN ??? CT PERITONEAL DRAINAGE 05/27/2020 CT Guided Drain Peritoneal 05/27/2020 [facility] RAD CAT SCAN ??? IR CHEST TUBE PLACEMENT BILATERAL 05/15/2020 IR Chest Tube Placement Bilateral 05/15/2020 Ricky Hollis MD [facility] INTERVENTIONL RAD ??? PRO AMPUTATE THIGH, OPEN CIRCULAR Right 05/11/2020 AMPUTATION, ABOVE-KNEE, OPEN, GUILLOTINE (WRVU 10.98) performed by Christine Montgomery MD at [facility] MAIN OR ??? PRO AMPUTATE THIGH, SECONDRY CLOSUR Right 06/13/2020 AMPUTATION, ABOVE-KNEE, SECONDARY CLOSURE OR SCAR REVISION (WRVU 7.29) performed by Christine Montgomery MD at [facility] MAIN OR ??? PRO CHOLECYSTOENTER+DONAVAN-EN-Y+GASTROENT N/A 05/12/2020 @DONAVAN-EN-Y WITH GASTROENTEROSTOMY (WRVU 24.21) performed by Meme Torres MD at [facility] OR ??? PRO EXPLORATORY OF ABDOMEN N/A 05/11/2020 @EXPLORATORY LAPAROTOMY, WITH/WITHOUT BIOPSY(S) (WRVU 12.54) performed by Meme Torres MD at [facility] OR ??? PRO GASTROJEJUNOSTOMY N/A 05/12/2020 @GASTROJEJUNOSTOMY (WRVU 22.53) performed by Meme Torres MD at [facility] OR ??? PRO REOPEN RECENT ABD EXPLORATORY N/A 05/12/2020 @EXPLORATORY LAPAROTOMY, REOPENING OF RECENT (WRVU 17.63) performed by Meme Torres MD at [facility] OR ??? PRO REOPEN RECENT ABD EXPLORATORY Midline 05/16/2020 @EXPLORATORY LAPAROTOMY, REOPENING OF RECENT (WRVU 17.63) performed by Nakul Vega MD at [facility] OR ??? PRO REOPEN RECENT ABD EXPLORATORY Midline 05/18/2020 @EXPLORATORY LAPAROTOMY, REOPENING OF RECENT (WRVU 17.63) performed by Marco Silver MD at [facility] OR ??? PRO REPAIR PERF DUOD/JIMENA ULC-WND/INJ N/A 05/11/2020 GASTRORRHAPHY, SUTURE OF PERFORATED, ULCER, WOUND, INJURY (WRVU 22.83) performed by Meme Torres MD at [facility] OR ??? PRO RESECT SMALL INTEST, SINGL RESEC/ANAS N/A 05/12/2020 @BOWEL RESECTION, SMALL INTESTINE SINGLE ANASTOMOSIS (WRVU 20.82) performed by Meme Torres MD at [facility] OR ??? PRO SUTURE ABD WALL-DEHIS/EVISCER Midline 05/20/2020 @SUTURE, SECONDARY, OF ABD WALL FOR EVISCERATION OR DEHISCENCE (WRVU 12.41) performed by Antonio kAbar MD at [facility] OR ? ? PRO UNLISTED PX ABD PRTM&OMENTUM N/A 05/20/2020 SUTURE OMENTUM (WRVU 11.1) performed by Antonio Akbar MD at [facility] MAIN OR ??? PRO UNLISTED PX ABDOMEN MUSCULOSKELETAL SYSTEM Midline 05/16/2020 WOUND CLOSURE, ABDOMINAL, PARTIAL W/ WOUND VAC (VU 6.39) performed by Nakul Vega MD at [facility] MAIN OR ??? PRO UPPER GI ENDOSCOPY, BIOPSY N/A 11/25/2020 EGD WITH BIOPSY (VU 2.49) performed by Kervin Rubio MD at [facility] ENDOSCOPY Medications: Current Outpatient Medications on File Prior to Visit Medication Sig Dispense Refill ??? atorvastatin (Lipitor) 80 mg Tablet Take 1 tablet by mouth every evening. 90 tablet 3 ??? clopidogreL (Plavix) 75 mg Tablet Take 1 tablet by mouth daily. 90 tablet 3 ??? nitroGLYcerin (Nitrostat) 0.4 mg Tablet, Sublingual Place 1 tablet under the tongue every 5 minutes as needed for Chest pain. 25 tablet PRN ??? pantoprazole EC (Protonix) [...] by mouth nightly.) 90 tablet 3 ??? aspirin 81 mg Tablet, Chewable Take 81 mg by mouth daily. 30 tablet 3 ??? levothyroxine (Synthroid) 50 mcg Tablet Take 1 tablet by mouth every morning. 90 tablet 3 ??? multivitamin with minerals (THERA-M) 9 mg iron-400 mcg Tablet Take 1 tablet by mouth daily. ??? acetaminophen (Tylenol) 500 mg Tablet Take 2 tablets by mouth every 6 hours as needed for Pain or Fever. 30 tablet 1 ??? melatonin 3 mg Tablet Take 3 tablets by mouth nightly. No current facility-administered medications on file prior to visit. Allergies: Doxycycline, Sulfa (sulfonamide antibiotics), and Vicodin [hydrocodone-acetaminophen] Family History: No family history on file. No history of bleeding disorders, clotting disorders, or complications from anesthesia. Social History: reports that she has been smoking cigarettes. She has a 40.00 pack-year smoking history. She has never used smokeless tobacco. She reports current alcohol use. She reports that she does not use drugs. Review of Systems: A 10 point review of systems was performed. Pertinent positives and negatives are listed in the above HPI. All other systems are negative. Physical Exam: Vital Signs: BP 119/71 (BP Location (NBP): Left arm, Patient Position: Sitting, BP Cuff Sizes: Adult (25-34 cm)) Pulse 71 Resp 18 Wt 90.4 kg (199 lb 4.8 oz) SpO2 97% BMI 35.31 kg/m?? General appearance: Alert and oriented, appears stated age, well groomed HEENT: No scleral icterus, normocephalic, atraumatic Neck: No carotid bruits Skin: No jaundice Heart: Regular rate and rhythm Lungs: Symmetric chest rise, no distress, clear breath sounds bilaterally Abdomen: midline laparotomy scar. Large reducible incisional hernia in the lower incision ~9cm in width. Mildly tender to palpation. There are small spots of weeping from incision. Serous drainage. Extremities: right AKA Studies: Imaging: My review of CT A/P 05/13/21: british cheese incisional hernia defect. 10cm defect in lower abdomen containing bowel Assessment and Recommendation: A 56 y.o.-old female with a complex medical and surgical history and a large incisional hernia. The patient was educated on the natural history of hernias and we reviewed her CT scan images together. I explained that given the size of her hernia, she will need a component separation and likely a bilateral TAR. However, there are several issues that need to be addressed/optimized prior to surgery. 1. Smoking cessation: the patient admits to continuing to smoke and said her daughter in law caughther last week. I explained that she will need to be nicotine free for 8 weeks prior to surgery. I offered her a referral to the tobacco cessation program through [facility]. I placed the referral and explained this program has better success than if patients tried to quit on their own. 2. Cardiac optimization: She recently had an NSTEMI in May 2021 and is currently on DAPT and eliquis. Her daughter in law tells me that they were told she could come off her DAPT in September for surgery if needed. We will need to confirm from Cardiology that she is optimized and that she is safe to stop her DAPT when the time for surgery comes. 3. Pulmonary optimization: She has a diagnosis of COPD and was previously on home O2 but is not currently. She does not follow regularly with a Electro Winning Operator. I have placed a referral for her to get re-established with a Electro Winning Operator for optimization prior to surgery. [facility] I will plan to follow up with her in September via video visit to check on the above progress and to seeif she is ready for definitive surgical planning. Thank you for the referral and for allowing me to participate in the care of Eliza Moya. Whit Nance MD General Surgery Minimally Invasive Surgery [phone] documented in this encounter Plan of Treatment Scheduled Referrals Name Type Priority Associated Diagnoses Orde r Schedule Referral to Pulmonology Outpatient Referral Routine Chronic obstructive pulmonary disease, unspecified COPD type Ordered: 07/29/2021 Referral to Smoking Cessation Program Outpatient Referral Routine Chronic obstructive pulmonary disease, unspecified COPD type Ordered: 07/29/2021 documented as of this encounter Visit Diagnoses Diagnosis Incisional hernia, without obstruction or gangrene Incisional hernia without mention of obstruction or gangrene Chronic obstructive pulmonary disease, unspecified COPD type Coronary artery disease, unspecified vessel or lesion type, unspecified whether angina present, unspecified whether [place] or transplanted heart documented in this encounter Care Teams Learning Support Teacher Relationship Specialty Start Date End Date Nya Hernandez APRN [address] [place] [id number] PCP - General Family Medicine 05/07/21 documented as of this encounter
--- OUTSIDE RECORDS SUMMARY | 2023-12-28 16:20 | XMS_ITS | Encounter Summary ---
[place] [address] Care Team Providers Care Delivery Coordinator Name Role Phone Nya Hernandez SERGIO Primary Care Provider +1- [phone] Reason for Referral * Consultation (Routine) - Closed Specialty Diagnoses / Procedures Referred By Tomas early Referred To Contact General Surgery Diagnoses Hernia of abdominal wall Lauri De La Torre MD [address] [place] [address] [facility] Gen Surgery [address] [place] [address] Referral ID Status Reason Start Date Expiration Date V isits Requested Visits Authorized [id number] Closed Consult, Test & Treat PCP Updated and/or Approved 05/20/2021 05/20/2022 6 6 Encounter Details Date Type Department Care Team (Latest Contact Info) Description 05/20/2021 Transcribe Orders [place] [address] Rasheeda Haque, PT [address] [facility] [address] [place] [id number] Hernia of abdominal wall Social History Tobacco Use Types Packs/Day Years [...] Associated Diagnoses Orde r Schedule Referral to General Surgery Outpatient Referral Routine Hernia of abdominal wall Ordered: 05/20/2021 documented as of this encounter Visit Diagnoses Diagnosis Hernia of abdominal wall Ventral hernia, unspecified, without mention of obstruction or gangrene documented in this encounter Care Teams Delivery Coordinator Relationship Specialty Start Date End Date Nya Hernandez APRN [address] [place] [id number] PCP - General Family Medicine 05/07/21 documented as of this encounter
--- OUTSIDE RECORDS SUMMARY | 2023-12-28 16:20 | XMS_ITS | Encounter Summary ---
Author Organization [facility] [place] [address] Care Team Providers Care Strategy Intern Name Role Phone Nya Hernandez APRN Primary Care Provider +1- [phone] Encounter Details Date Type Department Care Team (Latest Contact Info) Description 01/21/2022 Travel Social History Tobacco Use Types Packs/Day [...] on filedocumented in this encounter Care Teams Strategy Intern Relationship Specialty Start Date End Date Nya Hernanedz APRN [address] [place] [id number] PCP - General Family Medicine 05/07/21 documented as of this encounter
--- OUTSIDE RECORDS SUMMARY | 2023-12-28 16:20 | XMS_ITS | Encounter Summary ---
Author Organization [facility] [place] [address] Care Team Providers Care Clinic Physician Name Role Phone Nya Hernandez SERGIO Primary Care Provider +1- [phone] Reason for Visit * Reason Comments Follow-up Encounter Details Date Type Department Care Team (Late st Contact Info) Description 12/16/2021 10:45 AM EDT Office [place] [address] Whit Nance MD [facility] [place] [address] Incisional hernia, without obstruction or gangrene; Coronary artery disease, unspecified vessel or lesion type, unspecified whether angina present, unspecified whether capitan grande or transplanted heart; Other myocardial infarction type Social History Tobacco Use Types Packs/Day Years [...] Sign Reading Time Taken Comments Blood Pressure 124/66 12/16/2021 10:40 AM EDT Pulse 76 12/16/2021 10:40 AM EDT Temperature - - Respiratory Rate - - Oxygen Saturation 97% 12/16/2021 10:40 AM EDT Inhaled Oxygen Concentration - - Weight - - Height 160 cm (5' 2.99) 12/16/2021 10:40 AM EDT Body Mass Index - - documented in this encounter Progress Notes * Whit Nance MD - 12/16/2021 10:45 AM EDT Images from the original note were not included. [facility] General Surgery History and Physical History of Present Illness: Eliza Moya is a 56 y.o. female with a history of COPD, PAD s/p right AKA, HTN, CAD s/p PCI 05/27, and paroxysmal atrial fibrillation who I am follow up with today regarding an incisional hernia.Ms. Moya had a complicated surgical history secondary to a prolonged hospitalization in May 2020. ??She was hospitalized at this time for a perforated duodenal ulcer and critical limb ischemia requiring a right AKA and multiple exploratory laparotomies. ??See course below: 05/11- ex-lap, washout, closure of duodenal perforation, abthera 05/12- donavan-en-y duodenojejunostomy with abdominal closure 05/16- Ex-lap to rule out ischemia, abthera 05/18- ex-lap, partial omentectomy, abthera 05/20- ex-lap, partial omentectomy, fascial closure, wound vac Since her last visit with me on 11/13, she has stopped smoking. She says she briefly used nicotine patches or gum but has stopped this as well. She says the smell of cigarettes makes her nauseas. She has been working with wound care and says the wounds over her hernia are nearly completely healed. She is feeling good overall. She has been evaluated by Cardiology and Pulmonology and seems optimized for surgery. Past Medical History: Patient Active Problem List [...] DRAINAGE 05/27/2020 CT Guided Drain Peritoneal 05/27/2020 [facility] RAD CAT SCAN ??? CT PERITONEAL DRAINAGE 05/27/2020 CT Guided Drain Peritoneal 05/27/2020 [facility] RAD CAT [facility] ??? CT PERITONEAL DRAINAGE 05/27/2020 CT Guided Drain Peritoneal 05/27/2020 [facility] RAD CAT SCAN ??? IR CHEST TUBE PLACEMENT BILATERAL 05/15/2020 IR Chest Tube Placement Bilateral 05/15/2020 Ricky Hollis MD [facility] INTERVENTIONL RAD ??? PRO AMPUTATE THIGH, OPEN CIRCULAR Right 05/11/2020 AMPUTATION, ABOVE-KNEE, OPEN, GUILLOTINE (WRVU 10.98) performed by Christine Montgomery MD at [facility] OR ??? PRO AMPUTATE THIGH, SECONDRY CLOSUR Right 06/13/2020 AMPUTATION, ABOVE-KNEE, SECONDARY CLOSURE OR SCAR REVISION (WRVU 7.29) performed by Christine Montgomery MD at [facility] OR ??? PRO CHOLECYSTOENTER+DONAVAN-EN-Y+GASTROENT N/A 05/12/2020 @DONAVAN-EN-Y WITH GASTROENTEROSTOMY (WRVU 24.21) performed by Meme Torres MD at [facility] OR ??? PRO EXPLORATION OF ABDOMEN N/A 05/11/2020 @EXPLORATORY LAPAROTOMY, WITH/WITHOUT BIOPSY(S) (WRVU 12.54) performed by Meme Torres MD at [facility] OR ??? PRO GASTROJEJUNOSTOMY N/A 05/12/2020 @GASTROJEJUNOSTOMY (WRVU 22.53) performed by Meme Torres MD at [facility] OR ??? PRO REOPEN RECENT ABD EXPLORATORY N/A 05/12/2020 @EXPLORATORY LAPAROTOMY, REOPENING OF RECENT (WRVU 17.63) performed by Meme Torres MD at [facility] OR ??? PRO REOPEN RECENT ABD EXPLORATORY Midline 05/16/2020 @EXPLORATORY LAPAROTOMY, REOPENING OF RECENT (WRVU 17.63) performed by Nakul Vega MD at [facility] OR ??? PRO REOPEN RECENT ABD EXPLORATORY Midline 05/18/2020 @EXPLORATORY LAPAROTOMY, REOPENING OF RECENT (WRVU 17.63) performed by Marco Silver MD at [facility] OR ??? PRO REPAIR PERF DUOD/JIMENA ULC-WND/INJ N/A 05/11/2020 GASTRORRHAPHY, SUTURE OF PERFORATED, ULCER, WOUND, INJURY (WRVU 22.83) performed by Meme Torres MD at [facility] OR ??? PRO RESECT SMALL INTEST, SINGL RESEC/ANAS N/A 05/12/2020 @BOWEL RESECTION, SMALL INTESTINE SINGLE ANASTOMOSIS (WRVU 20.82) performed by Meme Torres MD at [facility] OR ??? PRO SUTURE ABD WALL-DEHIS/EVISCER Midline 05/20/2020 @SUTURE, SECONDARY, OF ABD WALL FOR EVISCERATION OR DEHISCENCE (WRVU 12.41) performed by Antonio Akbar MD at [facility] OR ? ? PRO UNLISTED PX ABD PRTM&OMENTUM N/A 05/20/2020 SUTURE OMENTUM (WRVU 11.1) performed by Antonio Akbar MD at [facility] OR ??? PRO UNLISTED PX ABDOMEN MUSCULOSKELETAL SYSTEM Midline 05/16/2020 WOUND CLOSURE, ABDOMINAL, PARTIAL W/ WOUND VAC (WRVU 6.39) performed by Nakul Vega MD at [facility] OR ??? PRO UPPER GI ENDOSCOPY, BIOPSY N/A 11/25/2020 EGD WITH BIOPSY (WRVU 2.49) performed by Kervin Rubio MD at [facility] ENDOSCOPY Medications: Current Outpatient Medications on File Prior to Visit Medication Sig Dispense Refill ??? atorvastatin (Lipitor) 80 mg Tablet Take 1 tablet by mouth every evening. 90 tablet 3 ??? clopidogreL (Plavix) 75 mg Tablet Take 1 tablet by mouth daily. 90 tablet 3 ??? pantoprazole EC (Protonix) 40 mg Tablet, [...] furosemide (Lasix) 20 mg Tablet daily. ??? traZODone (Desyrel) 50 mg Tablet Take [...] Take 1 tablet by mouth daily. ??? Trelegy Ellipta 100-62.5-25 mcg Inhale 1 puff into the lungs daily. ??? nitroGLYcerin (Nitrostat) 0.4 mg Tablet, Sublingual Place 1 tablet under the tongue every 5 minutes as needed for Chest pain. (Patient not taking: Reported on 12/16/2021) 25 tablet PRN ??? albuteroL 90 mcg/actuation HFA Aerosol Inhaler INHALE TWO PUFFS BY MOUTH EVERY 4 TO 6 HOURS NEEDED FOR COUGH ??? acetaminophen (Tylenol) 500 mg Tablet Take [...] from anesthesia. Social History: reports that she quit smoking about 2 months ago. Her smoking use included cigarettes. She has a 40.00 pack-year smoking history. She has never used smokeless tobacco. She reports current alcohol use. She reports that she does not use drugs. Review of Systems: A 10 point review of systems was performed. Pertinent positives and negatives are listed in the above HPI. All other systems are negative. Physical Exam: Vital Signs: BP 124/66 (BP Location (NBP): Left arm) Pulse 76 Ht 160 cm (5' 2.99) SpO2 97% BMI 35.31 kg/m?? General appearance: Alert and oriented, appears stated age, well groomed HEENT: No scleral icterus, normocephalic, atraumatic Skin: No jaundice Heart: Regular rate and rhythm Lungs: Symmetric chest rise, no distress Abdomen: Non distended, soft, large incisional hernia with underlying bowel visible under her skin. Extremities: Right AKA Studies: Office Visit on 12/16/2021 Component Date Value Ref Range Status ??? WBC 12/16/2021 14.3 (A) 4.0 - 9.5 x10(3)/mcL Final ??? RBC 12/16/2021 4.90 4.00 - 5.21 x10(6)/mcL Final ??? Hemoglobin 12/16/2021 13.1 11.7 - 15.5 g/dL Final ??? Hematocrit 12/16/2021 41.2 35.7 - 45.8 % Final ??? MCV 12/16/2021 84.1 82.6 - 94.4 fL Final ??? MCH 12/16/2021 26.7 (A) 27.1 - 32.0 pg Final ??? MCHC 12/16/2021 31.8 31.7 - 35.0 g/dL Final ??? Platelets 12/16/2021 453 (A) 145 - 357 x10(3)/mcL Final ??? RDWSD 12/16/2021 48.6 (A) 37.0 - 46.0 fL Final ??? RDWCV 12/16/2021 15.8 (A) 11.5 - 14.1 % Final ??? MPV 12/16/2021 9.3 7.6 - 12.9 fL Final ??? nRBC % Auto 12/16/2021 0.0 % Final ??? nRBC Abs Auto 12/16/2021 0.000 0.000 - 0.000 x10(3)/mcL Final ??? Hemoglobin A1C 12/16/2021 5.8 (A) 4.3 - 5.6 % Final Comment: Reference Range: 4.3 - 5.6% 5.7 [...] Mellitus, Diabetes Care 2013; 36: Suppl. 1, S67-74 ??? Est Avg Gluc 12/16/2021 119 mg/dL Final Comment: eAG equivalents for HbA1c percentages: HbA1c(%) eAG(mg/dL) 6.0 126 6.5 140 7.0 154 7.5 169 8.0 183 8.5 197 9.0 212 9.5 226 10.0 240 Limitations: The eAG calculation has not been validated on women, individuals below 18 years old and above 70 years old, and individuals with hemoglobinopathies. Additional resources are available on the ADA website. Chaitanya HOBSON, Mitchell J, Lety R, et al. Translating the A1C assay into estimated average glucose values. Diabetes Care 2008:31(8):9705-7705. ??? Glucose Lvl 12/16/2021 103 65 - 199 mg/dL Final Diabetes: >=200 mg/dL plus symptoms ??? BUN 12/16/2021 15 8 - 18 mg/dL Final ??? Creatinine 12/16/2021 0.65 (A) 0.70 - 1.20 mg/dL Final ??? Sodium 12/16/2021 141 135 - 145 mmol/L Final ??? Potassium 12/16/2021 4.0 3.5 - 5.0 mmol/L Final Comment: Please note: Patients with WBC >100,000 may have falsely elevated Potassium levels. For accurate Potassium quantification in these patients send serum separator tube (gold top) for subsequent determinations. Contact the Clinical Chemistry Laboratory if there are any questions. ??? Chloride 12/16/2021 104 98 - 107 mmol/L Final ??? CO2 12/16/2021 27 22 - 31 mmol/L Final ??? Anion Gap 12/16/2021 10 5 - 15 mmol/L Final ??? Calcium 12/16/2021 9.1 8.5 - 10.5 mg/dL Final ??? Total Protein 12/16/2021 6.9 6.1 - 8.0 g/dL Final ??? Albumin 12/16/2021 4.0 3.2 - 5.2 g/dL Final ??? AST 12/16/2021 13 0 - 30 unit/L Final ??? ALT 12/16/2021 16 0 - 30 unit/L Final ??? Alk Phos 12/16/2021 144 (A) 35 - 105 unit/L Final ??? Total Bilirubin 12/16/2021 0.4 0.2 - 1.3 mg/dL Final ? ? Estimated GFR 12/16/2021 102 >=60 mL/min/1.73 m?? Final Comment: This patient's estimated GFR was calculated [...] mass and symptoms in addition to eGFR. Lab Results Component Value Date/Time WBC 14.3 (H) 12/16/2021 12:13 PM HGB 13.1 12/16/2021 12:13 PM HCT 41.2 12/16/2021 12:13 PM Lab Results Component Value Date/Time NA 141 12/16/2021 12:13 PM K 4.0 12/16/2021 12:13 PM CL 104 12/16/2021 12:13 PM CO2 27 12/16/2021 12:13 PM BUN 15 12/16/2021 12:13 PM Lab Results Component Value Date/Time AST 13 12/16/2021 12:13 PM ALT 16 12/16/2021 12:13 PM Imaging: Assessment and Recommendation: A 56 y.o.-old female with a complex medical history and a large incisional hernia. At this point, her BMI is 35, she has stopped smoking (1 month), and she has been seen by Cardiology and Pulmonologywho feel she is optimized. She has also been following with wound care and her wound appears almostcompletely healed. I think we can proceed with getting her a date for surgery at this point. I explained that she will need an exploratory laparotomy and I expect there to be extensive adhesions given her previous surgical history. I explained that he is a high risk of enterotomies given herprevious surgical history as well as the proximity of her bowel to her skin. I explained that she may require a bowel resection and in that case I would still try to use a permanent macroporous mesh for the repair but she would be at a slightly higher risk of wound infection. This has been studied and has been shown to have a similar safety profile compared to biologic mesh (Sanjiv MJ, Bhakti DM, Yola CC, Capri A, Kirit J, Keiko BK, Victor Hugo A, Tim C, Maxx J, Tristan . Biologic vs Synthetic Mesh for Single-stage Repair of Contaminated Ventral Hernias: A Randomized Clinical Trial. JORGE Surg. 2021Jun 06;157(4):293-301. doi: 10.1001/jamasurg.2020.6902. PMID: [id number]; PMCID: [id number].). I explained that I would only use a if I felt that the contamination was minimal and controlled. I explained that she will need a component separation and I will plan for a TAR. I anticipate a 4-5 day hospital stay. I explained that she will have drains when she wakes up and may need to keep those up to 2 week. We also reviewed other risks of surgery including bleeding, infection, damage to surrounding structures, need for additional procedures, hernia recurrence, cardiac complications, pulmonary complications, stroke, blood clots and . She will need to hold her plavix 5 days preop and her eliquis 2 days preop. Given her extensive medical history, will have her consult with anesthesia preoperatively. Whit Nance MD General Surgery Minimally Invasive Surgery [phone] documented in this encounter Plan of Treatment Not on file documented as of this encounter Procedures Procedure Name Priority Date/Time Associated Diagnosis Comments HC VENIPUNCTURE Routine 12/16/2021 12:13 PM EDT Incisional hernia, without obstruction or gangrene Coronary artery disease, unspecified vessel or lesion type, unspecified whether angina present, unspecified whether capitan grande or transplanted heart HC HEMOGRAM Routine 12/16/2021 12:13 PM EDT Incisional hernia, without obstruction or gangrene Coronary artery disease, unspecified vessel or lesion type, unspecified whether angina present, unspecified whether capitan grande or transplanted heart HC HEMOGLOBIN A1C Routine 12/16/2021 12: 13 PM EDT Incisional hernia, without obstruction or gangrene Coronary artery disease, unspecified vessel or lesion type, unspecified whether angina present, unspecified whether capitan grande or transplanted heart Other myocardial infarction type COMPREHENSIVE METABOLIC PANEL Routine 12/16/2021 12:13 PM EDT Incisional hernia, without obstruction or gangrene Coronary artery disease, unspecified vessel or lesion type, unspecified whether angina present, unspecified whether capitan grande or transplanted heart documented in this encounter Results * (ABNORMAL) Nicotine and Metabolites (12/16/2021 12:13 PM EDT) Nicotine (JULY) <3.0 <3.0 ng/mL [facility] Comment: Test Performed by: [facility] [employer] [place] [address] Mems Engineer: Gumaro Peters M.D. Ph.D.; CLIA# [id number] Cotinine (JULY) 29(H) <3.0 ng/mL [facility] Comment: ADDITIONAL INFORMATION This test was developed and its performance characteristics determined by [facility] in a manner consistent with CLIA requirements. This test has not been cleared or approved by the U.S. Food and Drug Administration. Test Performed by: [facility] [employer] [place] [address] Mems Engineer: Gumaro Peters M.D. Ph.D.; CLIA# [id number] Blood 12/16/2021 12:1 3 PM EDT 12/16/2021 3:48 PM EDT Narrative Resulting Agency Comment Spec In Lab Whit Nance MD LAB SEND OUT ORDERAB LES [facility] [place] [address] * (ABNORMAL) Hemogram (12/16/2021 12:13 PM EDT) White Blood Cell 14.3(H) 4.0 - 9.5 x10(3)/mc L [facility] Red Blood Cell 4.90 4.00 - 5.21 x10(6)/mc L [facility] Hemoglobin 13.1 11.7 - 15.5 g/dL [facility] Hematocrit 41.2 35.7 - 45.8 % [facility] Mean Cell Volume 84.1 82.6 - 94.4 fL [facility] Mean Cell Hemoglobin 26.7(L) 27.1 - 32.0 pg [facility] Mean Cell Hemoglobin Concentration 31.8 31.7 - 35.0 g/dL [facility] Platelet 453(H) 145 - 357 x10(3)/mc L [facility] RDW Standard Deviation 48.6(H) 37.0 - 46.0 fL [facility] RDW coefficient of variation 15.8(H) 11.5 - 14.1 % [facility] Mean Platelet Volume 9.3 7.6 - 12.9 fL [facility] NRBC% auto 0.0 % [facility] NRBC Absolute 0.000 0.000 - 0.000 x10(3)/mc L [facility] Blood 12/16/2021 12:1 3 PM EDT 12/16/2021 12:27 PM EDT Narrative Resulting Agency Comment Spec In Lab Whit Nance MD HEMATOLOGY ORDERABLE S [facility] [place] [address] * (ABNORMAL) Hemoglobin A1c (12/16/2021 12:13 PM EDT) Hemoglobin A1c 5.8(H) 4.3 - 5.6 % [facility] Comment: Reference Range: 4.3 - [...] Mellitus, Diabetes Care 2013; 36: Suppl. 1, B06-63 Estimated Average Glucose 119 mg/dL [facility] Comment: eAG equivalents for HbA1c [...] into estimated average glucose values. ??Diabetes Care 2008:31(8):1901-9626. Blood 12/16/2021 12:1 3 PM EDT 12/16/2021 12:27 PM EDT Narrative Resulting Agency Comment Spec In Lab Whit Nance MD CHEMISTRY ORDERABLES [facility] [place] [address] * (ABNORMAL) Comprehensive metabolic panel (non-fasting) (12/16/2021 12:13 PM EDT) Glucose 103 65 - 199 mg/dL [facility] Comment:Diabetes: >=200 mg/d L plus symptoms Blood Urea Nitrogen 15 8 - 18 mg/dL [facility] Creatinine 0.65(L) 0.70 - 1.20 mg/dL [facility] Sodium 141 135 - 145 mmol/L [facility] Potassium 4.0 3.5 - 5.0 mmol/L [facility] Comment: Please note: ??Patients with WBC >100,000 may have falsely elevated Potassium levels. ??For accurate Potassium quantification in these patients send serum separator tube (gold top) for subsequent determinations. ??Contact the Clinical Chemistry Laboratory if there are any questions. Chloride 104 98 - 107 mmol/L [facility] Carbon Dioxide 27 22 - 31 mmol/L [facility] Anion Gap 10 5 - 15 mmol/L [facility] Calcium 9.1 8.5 - 10.5 mg/dL [facility] Protein, Total 6.9 6.1 - 8.0 g/dL [facility] Albumin 4.0 3.2 - 5.2 g/dL [facility] Aspartate Aminotransferase 13 0 - 30 unit/L [facility] Alanine Aminotransferase 16 0 - 30 unit/L [facility] Alkaline Phosphatase 144(H) 35 - 105 unit/L [facility] Bilirubin, Total 0.4 0.2 - 1.3 mg/dL [facility] Est Glomerular Filtration Rate 102 >=60 mL/min/1. 73 m?? [facility] Comment: This patient's estimated GFR [...] and symptoms in addition to eGFR. Blood 12/16/2021 12:1 3 PM EDT 12/16/2021 12:27 PM EDT Narrative Resulting Agency Comment Spec In Lab Whit Nance MD CHEMISTRY ORDERABLES [facility] [place] [address] documented in this encounter Visit Diagnoses Diagnosis Incisional hernia, without obstruction or gangrene Incisional hernia without mention of obstruction or gangrene Coronary artery disease, unspecified vessel or lesion type, unspecified whether angina present, unspecified whether capitan grande or transplanted heart Other myocardial infarction type documented in this encounter Care Teams Clinic Physician Relationship Specialty Start Date End Date Nya Hernandez APRN [address] [place] [id number] PCP - General Family Medicine 05/07/21 documented as of this encounter
--- OUTSIDE RECORDS SUMMARY | 2023-12-28 16:20 | XMS_ITS | Encounter Summary ---
Author Organization [facility] Address [facility] [place] [address] Care Team Providers Care Plywood Layup Line Back Feeder Name Role Phone Nya Hernandez APRN Primary Care Provider +1- [phone] Encounter Details Date Type Department Care Team (Late st Contact Info) Description 06/01/2021 [place] [address] Nate Redman Jr., MD [facility] [place] [address] Social History Tobacco Use Types Packs/Day Years [...] encounter Miscellaneous Notes * Telephone Encounter - Nate Redman Jr., MD - 06/01/2021 6:23 AM EDT Images from the original note were not included. Contacted by [facility] ED for cardiology consultation. History taking and objective data are per the [facility] ED provider/staff member. Referring Location: [facility] Referring Provider: Antonio Urbina MD [address] [place] [address] Eliza Moya 56 y.o. w / a pmh sig for COPD on 2L, 37 pack year smoking, PAD, HTN, paroxysmal AF-on eliquis, thrombocytosis, R AKA and bowel perforation requiring gastric bypass presenting with chest pain that began at 8pm last night. Pain is pressure like, and located substernal w/ associated nausea, vomiting, and hand tightness. The pt thought it was related to acid reflux, but did not improve w/ maalox. Vomited 2 times since the pain began. Chest pressure and nausea continued throughout the night, so she presented to the ED. She has received 1L nitro w/ some improvement in pain. The pt has also been given 324 Aspirin, 300 plavix, and heparin. Vitals ? Temp HR RR B/P O2 Sat FiO2 96.2 88 18 185/118 97 RA Repeat Vitlals: BP 155/87 HR 71 Trop: 762 (upper limit normal 51) Creatinine: 0.9 WBC: 14 H/H: 14.2/45.1 Platelets: 516 EKG: NSR, normal axis, low voltage, Normal R wave progression, Up-sloping ST depression in the inferior leads. A/P: Given above history, presentation, and data, this episode most likely represents Type I NSTEMI. Recommended an additional 300 mg of plavix to complete the load. They will also continue Asprin and heparin. The pt has been accepted in transfer. Asked that the ED provider contact us if chest painprogresses or is resistant to nitro gtt as we may want her to be transferred more urgently in that case. documented in this encounter Plan of Treatment Not on file documented as of this encounter Visit Diagnoses Not on filedocumented in this encounter Care Teams [employer] Back Feeder Relationship Specialty Start Date End Date Nya Hernandez APRN [address] [place] [address] PCP - General Family Medicine 05/07/21 documented as of this encounter
--- OUTSIDE RECORDS SUMMARY | 2023-12-28 16:20 | XMS_ITS | Encounter Summary ---
[place] [address] Care Team Providers Care Candy Puller Name Role Phone Nya Hernandez APRN Primary Care Provider +1- [phone] Encounter Details Date Type Department Care Team (Late st Contact Info) Description 06/01/2021 External [place] [address] Social History Tobacco Use Types Packs/Day Years [...] Procedure Name Priority Date/Time Associated Diagnosis Comments ECG SCAN Routine 06/01/2021 documented in this encounter Results * Scan Doc: ECG (06/01/2021) Historical Provider MD RODRIGUEZ MGJason SCAN EX T ORDR/RSLT documented in this encounter Visit Diagnoses Not on filedocumented in this encounter Care Teams Candy Puller Relationship Specialty Start Date End Date Nya Hernandez APRN [address] [place] [phone] PCP - General Family Medicine 05/07/21 documented as of this encounter
--- OUTSIDE RECORDS SUMMARY | 2023-12-28 16:20 | XMS_ITS | Encounter Summary ---
Author Organization [facility] [place] [address] Care Team Providers Care Compressor House Operator Name Role Phone Unavailable Primary Care Provider Unavailabl e Reason for Referral * Consultation (Routine) - Closed Specialty Diagnoses / Procedures Referred By Tomas early Referred To Contact Gastroenterology Diagnoses Duodenal ulcer Crystal Coker APRN [facility] [place] [address] [facility] Endoscopy [address] [place] [address] Referral ID Status Reason Start Date Expiration Date V isits Requested Visits Authorized [id number] Closed Consult, Test & Treat 07/25/2020 07/25/2021 1 1 Reason for Visit * Reason Comments Follow Up Surgery Encounter Details Date Type Department Care Team (Late st Contact Info) Description 07/25/2020 11:30 AM EDT Office [place] [address] Crystal Coker APRN [facility] [place] [address] Duodenal ulcer Social History Tobacco Use Types Packs/Day Years [...] this encounter Progress Notes * Crystal Coker, EVENT STAFF MEMBER - 07/25/2020 11:30 AM EDT Eliza Moya presents for generally surgery follow up. 05/11/20-06/27/20: Admission to [facility] for duodenal ulcer perforation. Eliza is a 55y F with COPD (2L home O2, finished prednisone taper in April), HTN, and visit toher ED 3 days prior to admission. At that time she was diagnosed mild sigmoid diverticulitis and sent home with antibiotics. She then re-presented with worsening abdominal pain and a cold, mottled RLE below the knee. She was hypotensive and acidotic with CT showing free air, large volume simple fluid significant wall edema and stranding near pylorus and D1/D2. In addition she was found to have omplete right iliac artery occlusion. Transferred to [facility] for further care. Operations/Procedures: 05/11 - Exploratory laparotomy, repair of perforated duodenal ulcer, right through knee guillotine amputation ?Over 2L of bilious ascites removed from abdomen. 3cm perforation in the first portion of the duodenum, extending to include the pylorus. Perforation closed primarily. Abthera placed with one visceral and one blue sponge. ?Minimal bleeding at knee level. No sign of infection. ? 05/12 - Exploratory laparotomy (reopening), Shari-en-Y duodenojejunostomy, GJ tube placement. ?No gross contamination. Previously placed stitches on perforation removed and retrocolic Shari-en-Y two-layer hand-sewn duodenojejunostomy performed, with distal cwlb-fs-bvfz stapled jejuno-jejunostomy. GJ tube placed. 19 Fr Oskar drain placed in RUQ near DJ. Fascia closed primarily and skin left open with wet-to-dry dressing. ?? 05/16 - Exploratory laparotomy (reopenening), abdominal washout and wound vac chnage ?Murky ascites noted along with a pocket of purulent fluid between liver edge and DJ anastomosis. No evidence of anastomotic breakdown or ongoing bilious leakage. JJ anastomosis intact. Entirety of colon and gallbladder unremarkable. Abthera VAC placed (2 blue sponges: 1 intraperitoneal, 1 subcutaneous). ?? 05/18 - Exploratory laparotomy (reopenining), wound vac change, LUIS swap, partial ometectomy ?Fibrinous/purulent debris along the underface of the liver and stomach. Along the previously placed LUIS drain, areas of some yeast colonies. The area was thoroughly irrigated. LUIS replaced (prior LUIS was clogged). The omentum was also noted to be poorly perfused, so a partial omentectomy was performed. ?? 05/20 - Wound vac change, partial omentectomy ?Abdomen clean, additional necrotic omentum resected, fascia closed, wound VAC placed with 2black sponges ?? 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 Thigh muscles??with fatty replacement and fibrosis. SFA and femoral vein were identified and ligated with double suture ligation. Skin closed with tamra. Dressed with bacitracin, Xeroform, Kerlix gauze, MALI wrap, and Ioban. Stool for H pylori neg on 05/16/20 Subocclusive RLL segmental pulmonary emboli identified 05/27/20 -currently on 70mg BID Lovenox Currently on pantoprazole 40mg bid Eliza is recuperating at [facility] in [facility]. She tells me she is feeling well, continues on her home O2. Denies fevers chills, appetite is good,denies sob or chest pain. Denies abd pain, nausea or vomiting. She is moving her bowels and voidingwithout difficulty. Denies any difficulty with her abdominal wound. She was seen by [facility] surgery last week. EXAM: Non toxic appearing. Abd soft non tender non distended. Midline abd wound is clean, granulating andflush with the skin.I cleaned the wound and placed aquacell ag with mepilex border to cover. No erythema or fluctuance. No odor. Impression/plan: Stable post discharge course. FU 3 weeks for wound check Will place referral for GI for EGD in approximately 6w to assure full healing of ulcer. She is to remain on the pantoprazole until she is instructed to stop by GI or her PCP. Will defer to PCP for anticoagulation management for PE documented in this encounter Plan of Treatment Scheduled Referrals Name Type Priority Associated Diagnoses Order Schedule Referral to Gastroenterology Outpatient Referral Routine Duodenal ulcer Ordered: 07/25/2020 documented as of this encounter Visit Diagnoses Diagnosis Duodenal ulcer Duodenal ulcer, unspecified as acute or chronic, without hemorrhage, perforation, or obstruction documented in this encounter
--- OUTSIDE RECORDS SUMMARY | 2023-12-28 16:20 | XMS_ITS | Encounter Summary ---
[place] [address] Care Team Providers Care Centrifuge Operator Name Role Phone Nya Hernandez APRN Primary Care Provider +1- [phone] Encounter Details Date Type Department Care Team (Late st Contact Info) Description 06/04/2021 External Results [place] [address] Social History Tobacco Use Types Packs/Day Years [...] Date/Time Associated Diagnosis Comments ECG SCAN Routine 06/04/2021 documented in this encounter Results * Scan Doc: ECG (06/04/2021) Historical Provider MD RODRIGUEZ MGR SCAN EX T ORDR/RSLT documented in this encounter Visit Diagnoses Not on filedocumented in this encounter Care Teams Centrifuge Operator Relationship Specialty Start Date End Date Nya Hernandez APRN [address] [place] [address] PCP - General Family Medicine 05/07/21 documented as of this encounter
--- OUTSIDE RECORDS SUMMARY | 2023-12-28 16:20 | XMS_ITS | Encounter Summary ---
Author Organization [facility] [place] [address] Care Team Providers Care Manager Career Name Role Phone Unavailable Primary Care Provider Unavailabl e Encounter Details Date Type Department Care Team (Latest Contact Info) Description 11/25/2020 10:37 AM EDT - 11/25/2020 1:00 PM EDT Hospital En[place] [address] Kervin Rubio MD [facility] [place] [address] Discharge Disposition: Home Social History Tobacco Use [...] Sign Reading Time Taken Comments Blood Pressure 129/72 11/25/2020 12:40 PM EDT Pulse 73 11/25/2020 12:05 PM EDT Temperature 36.6 ??C (97.8 ??F) 11/25/2020 11:02 AM E DT Respiratory Rate 14 11/25/2020 12:40 PM EDT Oxygen Saturation 95% 11/25/2020 12:40 PM EDT Inhaled Oxygen Concentration - - [...] the day after the procedure, use an ocly-gld-pzghjyu spray to numb your throat. Sucking on [...] occurs, please contact your Doctor. Please call [phone] before 8pm Mon-Fri with problems, questions or concerns. If you call after 8pm or on weekends, call the Hospital at [phone] and ask to speak to the Green Building Materials Designer certified nutritionist and the grinder operator tool will contact that person for you. When should you call for help? Call [phone] anytime you think you may need emergency [...] any problems. Where can you learn more? [facility] View your After Visit Summary and more online at [email or web address] If you would like to provide feedback [...] cost to you. Content Version: 12.2 ?? [id number] [employer]. Care instructions adapted under license by [facility]. If you have questions about a medical condition or this instruction, always ask your healthcare professional. [employer] disclaims any warranty or liability for your [...] 11:56 AM EDT Upper Gi Endoscopy, Biopsy ([id number]) 11/25/2020 11:44 AM EDT s/p surgical repair perforated duodenal ulcer, will need EGD in approximately 6-8w to evaluate for full healing UPPER GI ENDOSCOPY Routine 11/25/2020 11 :43 AM EDT documented in this encounter Results * Specimen to Pathology (11/25/2020 12:03 PM EDT) AP Specimen 11/25/2020 12:0 3 PM EDT 11/25/2020 12:03 PM EDT Narrative [facility] - 11/25/2020 12:03 PM EDT Specimen requisition ordered. ??Separate Pathology report to follow Kervin Rubio MD PATHOLOGY/CYTOLOGY O RENAY [facility] [place] [address] * Surgical Pathology Report (11/25/2020 11:56 AM EDT) Final Diagnosis [id number] ? Location: 4T; EA06; A The signing pathologist has (i) examined the relevant preparation(s) for the specimen(s) and (ii) rendered or confirmed the diagnosis(es). . ?Surgical Pathology DIAGNOSIS A - Gastric biopsies r/o H Pylori, biopsy: - ??Gastric antrum-type and body/fundic-typ e mucosa, negative for diagnostic abnormality. CR-PX Electronically signed by: ?Chuck Jarquin MD Verified: ??11/29/2020 15:41 ??Pathologist Performed at: ??-[facility] Dept. of Pathology, [place], [place] SPECIMEN(S) SUBMITTED A - Gastric biopsies r/o H Pylori, biopsy (4) CLINICAL INFORMATION 55-year-old female with history of duodenal ulcer perforation SPECIMEN PROCESSING A - Labeled/Fixativ e: Gastric biopsies, rule out H. pylori, formalin. Quantity/Size: Six, ranging from 0.1-0.4 cm. Tissue Description: Soft, pink tissues. Sections/Proces sing: Submitted en toto ??in 2 cassettes labeled A1-A2. ??sns 11/29/2020 3:41 PM EDT [facility] GI Biopsy 11/25/2020 11:5 6 AM EDT 11/25/2020 11:56 AM EDT Kervin Rubio MD PATHOLOGY/CYTOLOGY Rickey NIÑO [facility] [place] [address] * UPPER GI ENDOSCOPY (11/25/2020 11:43 AM EDT) UPPER GI ENDOSCOPY [facility] Endoscopy Procedure Date: 11/25/2020 11:43 AM ? Patient Name: Eliza Moya ? N: [id number] ? Date of : 1965 ? Age: 55 ? Order #: [id number] ? Instrument Name: [id number] ? Procedure: ? Upper GI endoscopy Indications: ? Pt with h/o perforated duodenal ulcer ? s/p 4 surgeries 05/2020, s/p ? duodenojejunostomy Providers: ? Kervin Rubio MD, Abiodun Noel ? Shahram Lizarraga, Foster Care Worker Referring : ?Sugey Vasquez Medicines: ? Midazolam [...] Helicobacter pylori ? testing. ? The examined [place] duodenum was normal. No ? ulcerations. ? [...] Normal stomach. Biopsied. ? - Normal examined [place] duodenum. ? S/p duodenojejunostomy, normal ? anastomosis, [...] PROVATION 11/25/2020 11:4 3 AM EDT Sugey Spivey Parveendougiedami [facility] PROVATION documented in this encounter Visit Diagnoses Not on filedocumented in this encounter Administered Medications Inactive Administered Medications - up to 3 most recent administrations Medication Order MAR Action Action Date Dose Rate Site lactated ringers infusion 100 mL/hr, Intravenous, CONTINUOUS, Starting on Wed11/25/20 at 1115, Until Wed11/25/20 at 1501, Endoscopy (Day of Procedure) New Bag 11/25/2020 11:15 AM EDT 100 mL/hr 100 mL/hr documented in this encounter Active and Recently Administered Medications Times are shown in EDT. Continuous Medication Order 11/23/2020 11/24/2020 11/25/2020 lactated ringers infusion 100 mL/hr, Intravenous, CONTINUOUS, Starting on Wed11/25/20 at 1115, Until Wed11/25/20 at 1501, Endoscopy (Day of Procedure) 1115 (New Bag - Prov ider: Birdie Rodriguez RN) PRN Medication Order 11/23/2020 11/24/2020 11/25/2020 benzocaine [...]
--- OUTSIDE RECORDS SUMMARY | 2023-12-28 16:20 | XMS_ITS | Encounter Summary ---
Author Organization [facility] [place] [address] Care Team Providers Care Field Health Officer Name Role Phone Nya Hernandez APRN Primary Care Provider +1- [phone] Encounter Details Date Type Department Care Team (Late st Contact Info) Description 12/19/2021 Orders Only [place] [address] Whit Nance MD [facility] [place] [address] Nicotine dependence with nicotine-induced disorder, unspecified nicotine product type Social History Tobacco Use Types Packs/Day [...] as of this encounter Visit Diagnoses Diagnosis Nicotine dependence with nicotine-induced disorder, unspecified nicotine product type documented in this encounter Care Teams Field Health Officer Relationship Specialty Start Date End Date Nya Hernandez APRN [address] [place] [id number] PCP - General Family Medicine 05/07/21 documented as of this encounter
--- OUTSIDE RECORDS SUMMARY | 2023-12-28 16:20 | XMS_ITS | Encounter Summary ---
Author Organization [facility] [place] [address] Care Team Providers Care Ore Storage Drier Name Role Phone Nya Hernandez SERGIO Primary Care Provider +1- [phone] Encounter Details Date Type Department Care Team (Late st Contact Info) Description 02/20/2022 11:59 PM EST Anesthesia Event [place] [address] Chaitanya Hamlin MD [facility] [place] [address] Anesthesia Record Procedure Summary Procedure Name Responsible Anesthesiologist Anesthesia Start Time Anesthesia Stop Time HERNIA REPAIR, RECURRENT INCISIONAL OR VENTRAL, REDUCIBLE (WRVU 12.37) (Abdomen) Events No events on file. Meds * Agents No agents on file. * Blood No blood administrations on file. Lines, Drains, and Airways Type Details Placement Removal (RETIRED) Peripheral IV Line - Single Lumen 07/24/22 (present on admission from OSH); [id number]/24/222051 by Gerri Kat RN External Catheter 07/26/22; 2099; exte rnal catheter applied 07/26/222099 by Leyla Soto RN documented in this encounter Social History [...] of this encounter OR Notes * Anesthesia Preprocedure Evaluation - Chaitanya Hamlin MD - 01/21/2022 8:48 AM EST Pre-Anesthesia Evaluation for: Eliza Moya a 56 y.o. female. Procedure(s): HERNIA REPAIR, RECURRENT INCISIONAL OR VENTRAL, REDUCIBLE (WRVU 12.37) MODIFIER MESH,BARD VENTRALIGHT ST Patient Active Problem [...] CT Guided Drain Peritoneal 05/27/2020 [facility] RAD CAT SCAN ??? CT PERITONEAL DRAINAGE 05/27/2020 CT Guided Drain Peritoneal 05/27/2020 [facility] RAD CAT SCAN ??? CT PERITONEAL DRAINAGE 05/27/2020 CT Guided Drain Peritoneal 05/27/2020 [facility] RAD CAT SCAN ??? IR CHEST TUBE PLACEMENT BILATERAL 05/15/2020 IR Chest Tube Placement Bilateral 05/15/2020 Ricky Hollis MD [facility] INTERVENTIONL RAD ??? PRO AMPUTATE THIGH, OPEN CIRCULAR Right 05/11/2020 AMPUTATION, ABOVE-KNEE, OPEN, GUILLOTINE (WRVU 10.98) performed by Christine Montgomery MD at [facility] MAIN OR ??? PRO AMPUTATE THIGH, SECONDRY CLOSUR Right 06/13/2020 AMPUTATION, ABOVE-KNEE, SECONDARY CLOSURE OR SCAR REVISION (WRVU 7.29) performed by Christine Montgomery MD at [facility] OR ??? PRO CHOLECYSTOENTER+DONAVAN-EN-Y+GASTROENT N/A 05/12/2020 @DONAVAN-EN-Y WITH GASTROENTEROSTOMY (WRVU 24.21) performed by Meme Torres MD at [facility] OR ??? PRO EXPLORATION OF ABDOMEN N/A 05/11/2020 @EXPLORATORY LAPAROTOMY, WITH/WITHOUT BIOPSY(S) (WRVU 12.54) performed by Meme Torres MD at [facility] OR ??? PRO GASTROJEJUNOSTOMY N/A 05/12/2020 @GASTROJEJUNOSTOMY (WRVU 22.53) performed by Meme Torres MD at [facility] OR ??? PRO REOPEN RECENT ABD EXPLORATORY N/A 05/12/2020 @EXPLORATORY LAPAROTOMY, REOPENING OF RECENT (WRVU 17.63) performed by Meme Torres MD at [facility] OR ??? PRO REOPEN RECENT ABD EXPLORATORY Midline 05/16/2020 @EXPLORATORY LAPAROTOMY, REOPENING OF RECENT (WRVU 17.63) performed by Nakul Vega MD at [facility] OR ??? PRO REOPEN RECENT ABD EXPLORATORY Midline 05/18/2020 @EXPLORATORY LAPAROTOMY, REOPENING OF RECENT (WRVU 17.63) performed by Marco Silver MD at [facility] OR ??? PRO REPAIR PERF DUOD/JIMENA ULC-WND/INJ N/A 05/11/2020 GASTRORRHAPHY, SUTURE OF PERFORATED, ULCER, WOUND, INJURY (WRVU 22.83) performed by Meme Torres MD at [facility] OR ??? PRO RESECT SMALL INTEST, SINGL RESEC/ANAS N/A 05/12/2020 @BOWEL RESECTION, SMALL INTESTINE SINGLE ANASTOMOSIS (WRVU 20.82) performed by Meme Torres MD at [facility] OR ??? PRO SUTURE ABD WALL-DEHIS/EVISCER Midline 05/20/2020 @SUTURE, SECONDARY, OF ABD WALL FOR EVISCERATION OR DEHISCENCE (WRVU 12.41) performed by Antonio Akbar MD at [facility] MAIN OR ? ? PRO UNLISTED PX ABD PRTM&OMENTUM N/A 05/20/2020 SUTURE OMENTUM (WRVU 11.1) performed by Antonio Akbar MD at [facility] MAIN OR ??? PRO UNLISTED PX ABDOMEN MUSCULOSKELETAL SYSTEM Midline 05/16/2020 WOUND CLOSURE, ABDOMINAL, PARTIAL W/ WOUND VAC (WRVU 6.39) performed by Nakul Vega MD at [facility] MAIN OR ??? PRO UPPER GI ENDOSCOPY, BIOPSY N/A 11/25/2020 EGD WITH BIOPSY (WRVU 2.49) performed by Kervin Rubio MD at [facility] ENDOSCOPY Social History Tobacco Use ??? Smoking status: Former Packs/day: 1.00 Years: 40.00 Pack years: 40.00 Types: Cigarettes Quit date: 10/07/2021 Years since quittin.2 ??? Smokeless tobacco: Never ??? Tobacco comments: never vape Substance Use Topics ??? Alcohol use: Yes Comment: none since 06/2020 Social History Substance and Sexual Activity Drug Use Never Allergies Allergen Reactions ??? Doxycycline Rash RADHA- unknown ??? Sulfa (Sulfonamide Antibiotics) Rash RADHA- unknown ??? Vicodin [Hydrocodone-Acetaminophen] Other (See Comments) RADHA- unknown Medications: MAR and/or home medications have been reviewed. Physical Exam: Preprocedure Vitals Current as of 01/21/22 0848 No BP, pulse, respiration, SpO2, or temperature recorded. Height: 160 cm (5' 2.99) (12/16/21) Weight: BMI: IBW: Anesthesia Physical Exam Last Filed Perioperative Cognitive Screening None Anesthesia Plan Anesthesia Screening Note: Date and Time of Entry: 01/21/2022 9:26 AM Entered By: Chaitanya Hamlin MD Reason for Evaluation: Surgeon Request Hx of Anesthesia Problem: Cardiac and pulmonary comorbidities Findings, Assessment and Plan: PRELIMINARY NOTE PRIOR TO [facility] INTERVIEW BASED ON CHART REVIEW Eliza Moya is a 56 y.o. female (BMI 35) with a large midline incisional hernia presenting to [facility] for pre operative evaluation in the setting of cardiopulmonary comorbidities. She is scheduled for an ex lap for repair with Dr. Nance which could also include bowel resection, enterostomies, etc. Eliza has a history of HTN, paroxysmal Afib on eliquis as well as NSTEMI s/p BENSON (LCx/OM) in May 2021, now on Plavix (aspirin discontinued). She follows with cardiology at [facility] and was evaluated in November ahead of this planned surgery. From her last TTE in May, her LV function is preserved(60%) despite hypokinesis in the LCx distribution. She has no valvular disease, RV dysfunction, or pHTN. Cardiology suggested that she was appropriate for surgery but that her Eliquis should be held 5 days prior and her Plavix 2 days prior. She also has a history of COPD and follows with Pulmonology at [facility], last seen this November. She remains on 2 inhalers. Although she is at increased risk of pulmonary complications, she appears to be stable/at her pulmonary baseline. She is not on home O2. She reports that she quit smoking about two months ago. Pulmonology recommended pre and post operative IS/acapella therapies to reduce risk of pulmonary compromise. In May 2020, Eliza had a perforated duodenal ulcer resulting in an ex lap (later developed thisincisional hernia), and a prolonged hospital stay. It was complicated by right leg CLI now s/p right AKA, as well as a PE. Her procedures are belwoow: 05/11- ex-lap, washout, closure of duodenal perforation, abthera 05/12- donavan-en-y duodenojejunostomy with abdominal closure 05/16- Ex-lap to rule out ischemia, abthera 05/18- ex-lap, partial omentectomy, abthera 05/20/20- ex-lap, partial omentectomy, fascial closure, wound vac Activity tolerance: DASI unknown Anesthesia Hx: Past airway: easy mask, Grade 1 view Mac 3. Would consider GETA and the possibility of an arterial line. She'll be at increased risk for prolonged intubation and ICU admission post operatively. A pre operative thoracic epidural could be largely beneficial for both analgesia and her post operative respiratory course. She has instructions to appropriately hold Plavix (5 days pre op) but ideally her Eliquis would be held 72 hrs prior to surgery according to TIMI guidelines (her instructions are currently to hold for 2 days). This will have to be discussed with her surgical and cardiology teams. Chaitanya Hamlin MD 01/21/2022 documented in this encounter Plan of Treatment Not on file documented as of this encounter Visit Diagnoses Not on filedocumented in this encounter Care Teams Ore Storage Drier Relationship Specialty Start Date End Date Nya Hernandez, SERGIO [address] [place] [address] PCP - General Family Medicine 05/07/21 documented as of this encounter
--- OUTSIDE RECORDS SUMMARY | 2023-12-28 16:21 | XMS_ITS | Encounter Summary ---
Author Organization [facility] [place] [address] Care Team Providers Care Expander Name Role Phone Unavailable Primary Care Provider Unavailabl e Encounter Details Date Type Department Care Team (Late st Contact Info) Description 06/28/2020 Telephone [place] [phone] Myriam Howard, RN Social History Tobacco Use Types Packs/Day Years Used Date Smoking Tobacco: Every Day Cigarettes Smokeless Tobacco: Never Alcohol Use Standard Drinks/Week Comments Yes 6 (1 standard drink = 0.6 oz pur e alcohol) reported by Son Sex and Gender Information Value Date Recorded Sex Assigned at Not on file Gender Identity Not on file Sexual Orientation Not on file documented as of this encounter Miscellaneous Notes * Telephone Encounter - Myriam Howard, RN - 06/28/2020 4:07 PM EDT I received a call from Rupesh at [facility]. He needs orders converted to the supplies available where Eliza is residing. Opticell Ag will be placed on her abdominal wound - covered by a bordered Island Dressing. This will be reinforced if necessary with an Omnifix tape. This will be changed Wednesday, Wednesday and Fridays. At her old g tube site a dry steri dressing will be placed - covered / secured with Omnifix tape and changed prn. Rupesh's Phone number is [phone] The Fax number is [phone]. The Orders were faxed. documented in this encounter Plan of Treatment Not on file documented as of this encounter Visit Diagnoses Not on filedocumented in this encounter
--- OUTSIDE RECORDS SUMMARY | 2023-12-28 16:21 | XMS_ITS | Encounter Summary ---
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 Procedures EMERGENCY IPI Referral ID Status Reason Start Date Expiration Date Visits Re quested Visits Authorized [id number] 1 1 Encounter Details Date Type Department Care Team (Late st Contact Info) Description 06/13/2020 7:44 AM EDT Anesthesia [place] [address] Shravan Ortiz MD [facility] [place] [address] Keon Barger MD [facility] [place] [address] Anesthesia Record Procedure Summary Procedure Name Responsible Anesthesiologist Anesthesia Start Time Anesthesia Stop Time AMPUTATION, ABOVE-KNEE, SECONDARY CLOSURE OR SCAR REVISION (WRVU 7.29) (Right: Leg Upper) Shravan Ortiz MD 06/13/20 0744 06/13/20 1020 Events Date Time Event Comment 06/13/2020 0722 0744 AN Verify 0744 Start 0744 An Start Data 0750 An Induction 0754 An Intubation 0801 Anesthesia Ready 0824 Procedure Start 1015 Extubation/LMA Out 1017 an stop data 1020 Recovery or ICU Handoff Jaylin ent care was transferred to the destination unit staff after review of the patient's medical history, current anesthetic/surgical status and plan, according to the Provider Handoff Checklist. 1020 Stop Meds Name Total fentaNYL 50 mcg IV Lidocaine 100 mg Propofol 150 mg Rocuronium 50 mg Ondansetron 4 mg Dexamethasone 4 mg piperacillin-tazobactam (Zos yn) 3.375 g vial attach to sodium chloride 0.9% 50 mL Mini-Bag Plus 0 g ceFAZolin (Ancef) 2 g in dextrose 5% 100 mL infusion 2 g acetaminophen IV 1,000 mg PHENYLephrine INF 1,010 mcg Albuterol Inhaler 6 puff Sugammadex 200 mg Lactated Ringers 400 mL * Agents Name O2 Air N2O Sevoflurane (et) * Blood No blood administrations on file. Lines, Drains, and Airways Type Details Placement Removal Incision 05/11/20; 0241; midl ine; upper quadrant; midline; 11/03/21 (LDA cleanup utility RA#[id number]); 1715 (LDA cleanup utility RA#[id number]) 05/11/20 0241 by Beverly Sánchez RN 11/03/21 1715 by Jody Lara NPWT 05/11/20; 1200; midl ine; abdomen; 06/26/20 (removed by provider at bedside); 1746 05/11/20 1200 by Katia Love RN 06/26/20 1746 by Linda Dobbs RN Incision 05/11/20; 1645; Righ t; knee; transverse; 06/22/20 (AKA); 1531 05/11/20 1645 by Alexandra Mackey RN 06/22/20 1531 by Marie Medeiros RN Enterostomy Tube 05/12/20; 1106; percutaneous endoscopic gastrostomy-jejunostomy (18Fr FRANCISCO J G-J Tube); 45; LUQ (left upper quadrant); 06/26/20 (by provider at bedside); 1746 05/12/20 1106 by Mary Porter RN 06/26/20 1746 by iLnda Dobbs RN (RETIRED) PICC Line - Triple Lumen 06/06/20; 1557; basilic vein (medial side of arm), right; pressure injectable catheter, open-ended catheter; 5 Fr; 0 cm; 41 cm; 41 cm; placement verified by x-ray; caval atrial junction; MARIANNA SHIELDS RN; intradermal injection, tolerated well, appears comfortable; no longer indicated, removed per policy/procedure, site care per policy/procedure, catheter/device intact; 06/21/20; 1815 06/06/20 1557 by Blu Shields, FRANKIE 06/21/20 1815 by Rebeka Elam Wound 06/07/20; 1627; Righ t, other (see comments); (under breast); excoriation; 11/03/21 (LDA cleanup utility RA#[id number]); 171 (LDA cleanup utility RA#[id number]) 06/07/20 162 by Priscila Pablo RN 11/03/21 1715 by Jody Lara Urethral Catheter 06/09/20; 0109; Physician order; Acute urinary retention or obstruction, Immobility without alternative; indwelling single lumen catheter; 14; inserted at this facility; 1; 10; 10; drainage bag to dependent drainage; 06/18/20; 1345 06/09/20 0109 by Ivana Monique RN 06/18/20 1345 by Bonnie Alicia, RN ETT Mask Ventilation: Adjunct (2); ETT Type: Cuffed; ETT Size: 7 mm; Mac Blade: 3; Notes: Asleep, Pre-O2, Stylette; Attempts: 1; Laryngoscopy Grade: 1; ETT Placement Verified By: Auscultation, Capnometry, Visual; Secured at Teeth: 22 cm; Inserted by: katie; Removal Date: 06/13/20; Removal Time: 1015 06/13/20 0759 by Char Romero MD 06/13/20 1015 by Char Romero MD Incision 06/13/20; 0824; Rigtasha t; thigh; horizontal; 11/03/21 (LDA cleanup utility RA#[id number]); 171 (LDA cleanup utility RA#[id number]) 06/13/20 0824 by Alexandra Mackey RN 11/03/21 1715 by Jody Lara Drain/Device Site 06/13/20; 0945; Rigtasha t; thigh (at stump site); collapsible closed device (10 mm LUIS); Dr Montgomery; Sterile prep and drape; MDs removed; 06/16/20; 0844 06/13/20 0945 by Alexandra Mackey RN 06/16/20 0844 by Bonnie Alicia RN documented in this encounter Social History [...] OR Notes * Anesthesia Postprocedure Evaluation - Shravan Ortiz MD - 06/13/2020 10:48 AM EDT Department of Anesthesiology Post-procedure Note Patient: Eliza Moya Procedure Summary Date: 06/13/20 Room / Location: [facility] [place] OR [address] [place] [address] MAIN OR Anesthesia Start: 743 Anesthesia Stop: 1019 Procedure: AMPUTATION, ABOVE-KNEE, SECONDARY CLOSURE OR SC[facility] RE[facility]ION [facility] (Right Leg Upper)Diagnosis: (Open Amputation) Surgeons: Christine Montgomery MD Responsible Provider: Shravan Ortiz MD Anesthesia Type: general ASA Status: 3 All Anesthesia Providers: Anesthesiologist: Shravan Ortiz MD Muck Miner: Char Romero MD Vitals Value Taken Time BP 135/70 06/13/20 1045 Temp 36.7 ??C (98.1 ??F) 06/13/20 1022 Pulse 92 06/13/20 1047 Resp 29 06/13/20 1047 SpO2 93 % 06/13/20 1047 Pain Level Vitals shown include unvalidated device data. Patient Location: PACU/[facility] Level of Consciousness: Awake and Alert Pain Management: Satisfactory Analgesia PONV: None Cardiovascular Status: At Baseline Respiratory Status: At Baseline Postoperative Fluid Status: Intravascular EUvolemia Possible Anesthetic Complications: NONE apparent at time of evaluation Final Primary Anesthesia Type: General (The anesthetic type performed was the same as planned.) Comments: * Anesthesia Preprocedure Evaluation - Shravan Ortiz MD - 06/12/2020 3:21 PM EDT Images from the original note were not included. Pre-Anesthesia Evaluation for: Eliza Moya a 55 y.o. female. Procedure(s): AMPUTATION, ABOVE-KNEE, SECONDARY CLOSURE OR SCAR REVISION ([facility]) Patient Active Problem List Diagnosis ??? Perforated viscus No past medical history on file. Past Surgical History: Procedure Laterality Date ??? CT PERITONEAL DRAINAGE 05/27/2020 CT Guided Drain Peritoneal 05/27/2020 [facility] [place] RAD CAT SCAN ??? CT PERITONEAL DRAINAGE 05/27/2020 CT Guided Drain Peritoneal 05/27/2020 [facility] [place] RAD CAT SCAN ??? CT PERITONEAL DRAINAGE 05/27/2020 CT Guided Drain Peritoneal 05/27/2020 [facility] [place] RAD CAT SCAN ??? IR CHEST TUBE PLACEMENT BILATERAL 05/15/2020 IR Chest Tube Placement Bilateral 05/15/[address] [facility] [place] INTERVENTIONL RAD ??? PRO AMPUTATE THIGH, OPEN CIRCULAR Right 05/11/2020 AMPUTATION, ABOVE-KNEE, OPEN, GUILLOTINE (VU 10.98) performed by Christine Montgomery MD at [facility] OR ??? PRO CHOLECYSTOENTER+DONAVAN-EN-Y+GASTROENT N/A 05/12/2020 @DONAVAN-EN-Y WITH GASTROENTEROSTOMY (WRVU 24.21) performed by Meme Torres MD at [facility] OR ??? PRO EXPLORATORY OF ABDOMEN N/A 05/11/2020 @EXPLORATORY LAPAROTOMY, WITH/WITHOUT BIOPSY(S) (VU 12.54) performed by Meme Torres MD at [facility] OR ??? PRO GASTROJEJUNOSTOMY N/A 05/12/2020 @GASTROJEJUNOSTOMY (WRVU 22.53) performed by Meme Torres MD at [facility] MAIN OR ??? PRO REOPEN RECENT ABD EXPLORATORY N/A 05/12/2020 @EXPLORATORY LAPAROTOMY, REOPENING OF RECENT (WRVU 17.63) performed by Meme Torres MD at [facility] OR ??? PRO REOPEN RECENT ABD EXPLORATORY Midline 05/16/2020 @EXPLORATORY LAPAROTOMY, REOPENING OF RECENT (WRVU 17.63) performed by Nakul Vega MD at [facility] [place] MAIN OR ??? PRO REOPEN RECENT ABD EXPLORATORY Midline 05/18/2020 @EXPLORATORY LAPAROTOMY, REOPENING OF RECENT (WRVU 17.63) performed by Marco Silver MD at [facility] [place] MAIN OR ??? PRO REPAIR PERF DUOD/JIMENA ULC-WND/INJ N/A 05/11/2020 GASTRORRHAPHY, SUTURE OF PERFORATED, ULCER, WOUND, INJURY (WRVU 22.83) performed by Meme Torres MD at [facility] OR ??? PRO RESECT SMALL INTEST, SINGL RESEC/ANAS N/A 05/12/2020 @BOWEL RESECTION, SMALL INTESTINE SINGLE ANASTOMOSIS (WRVU 20.82) performed by Meme Torres MD at [facility] [place] MAIN OR ??? PRO SUTURE ABD WALL-DEHIS/EVISCER Midline 05/20/2020 @SUTURE, SECONDARY, OF ABD WALL FOR EVISCERATION OR DEHISCENCE (WRVU 12.41) performed by Antonio Akbar MD at [facility] OR ? ? PRO UNLISTED PX ABD PRTM&OMENTUM N/A 05/20/2020 SUTURE OMENTUM (WRVU 11.1) performed by Antonio Akbar MD at [facility] OR ??? PRO UNLISTED PX ABDOMEN MUSCULOSKELETAL SYSTEM Midline 05/16/2020 WOUND CLOSURE, ABDOMINAL, PARTIAL W/ WOUND VAC (WRVU 6.39) performed by Nakul Vega MD at [facility] OR Social History Tobacco Use ??? Smoking status: Current Every Day Smoker Types: Cigarettes ??? Smokeless tobacco: Never Used Substance Use Topics ??? Alcohol use: Yes Alcohol/week: 6.0 standard drinks Types: 6 Cans of beer per week Comment: reported by Son Social History Substance and Sexual Activity Drug Use Not Currently Comment: Unable to assess Allergies Allergen Reactions ??? Doxycycline Other (See Comments) RADHA- unknown ??? Sulfa (Sulfonamide Antibiotics) Other (See Comments) RADHA- unknown ??? Vicodin [Hydrocodone-Acetaminophen] Other (See Comments) RADHA- unknown Medications: MAR and/or home medications have been reviewed. Physical Exam: Preprocedure Vitals Current as of 06/12/20 1521 BP: 146/74 Pulse: Resp: 18 SpO2: 96 Temp: 36.8 ??C (98.2 ??F) Height: 157 cm (5' 1.81) (06/06/20) Weight: 74.1 kg (163 lb 5.8 oz) (06/12/20) BMI: 30.06 IBW: 49.7 kg (109 lb 7.9 oz) Last edited 06/12/20 1139 by Airway Assessment: Mallampati: III Cardiovascular Assessment: Rhythm: regular Rate: normal Pulmonary Assessment: (+) wheezes PE comment: 4L NC Dental Assessment: Misc Assessment: IV access: PICC line Last Filed Perioperative Cognitive Screening None Anesthesia Plan: ASA 3 general, with a(n) intravenous induction 55 y.o., 74 kg female presenting for right AKA PMH significant for COPD on 2L home O2, currently on 4L NC) and HTN. She was admitted with duodenalperforation now s/p repair of duodenal perforation with Donavan-en-Y duodenojejunostomy and distal jejuno-jejunostomy (currently on tube feeds). 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 Also apparently with NSTEMI and pneumonia last week, as well previously requiring CVVH. Allergies to doxycycline and sulfa abx. Currently on zosyn, fluconazole, heparin gtt, daily inhalers. She is appropriately NPO, tube feeds off since midnight. She feels nauseous this morning and had emesis. She feels wheezy and is requesting a breathing tx, bedside RN notified. Anesthetic hx: No reported prior complications with anesthesia Airway hx: mac 3 gr 1 ECHO (06/04): shows Normal fxn w/o WMA Labs: Hgb 8.3, plt 786, K 3.5, Cr 0.44 Anesthetic Plan: GA with ETT given nausea/vomiting Standard ASA monitoring In situ PICC Region - Other Informed Consent: Anesthetic plan and risks discussed with patient. Use of blood products discussed with patient who consented to blood products. Plan discussed with attending and resident. PAT Clinic Note documented in this encounter Plan of Treatment Not on file documented as of this encounter Visit Diagnoses Not on filedocumented in this encounter Administered Medications Inactive Administered Medications - up to 3 most recent administrations Medication Order MAR Action Action Date Dose Rate Site acetaminophen (Ofirmev) (1000 mg/100 mL) infusion Intravenous, Administer over 15 Minutes, PRN, Starting on Suzi 06/13/20 at 0808, Until Suzi 06/13/20 at 1035, Anesthesia Intra-op, Routine Given 06/13/2020 8:08 AM EDT 1,000 mg albuteroL 90 mcg/actuation inhaler Inhalation, PRN, Starting on Suzi 06/13/20 at 0956, Until Suzi 06/13/20 at 1035, Anesthesia Intra-op, Routine Given 06/13/2020 9:56 AM EDT 6 puffs ceFAZolin (Ancef) 2 g in dextrose 5% 100 mL infusion 2 g, Intravenous, ONCE, 1 dose, On Suzi 06/13/20 at 0800, Administer over 30 Minutes, Please administer on-call to OR., Indication for (Active or Suspected): Prophylaxis Given 06/13/2020 8:04 AM EDT 2 g dexamethasone (Decadron) injection Intravenous, PRN, Starting on Suzi 06/13/20 at 0804, Until Suzi 06/13/20 at 1035, Anesthesia Intra-op, Routine Given 06/13/2020 8:04 AM EDT 4 mg fentaNYL (pf) (50 mcg/mL) multi-dose injection Intravenous, PRN, Starting on Suzi 06/13/20 at 0808, Until Suzi 06/13/20 at 1035, Anesthesia Intra-op, Routine Given 06/13/2020 9:57 AM EDT 25 mcg Given 06/13/2020 8:08 AM EDT 25 mcg lactated ringers infusion Intravenous, CONTINUOUS PRN, Starting on Suzi 06/13/20 at 0744, Until Suzi 4/8/21 at 1035, Anesthesia Intra-op New Bag 06/13/2020 7:44 AM EDT lidocaine (pf) (Xylocaine) (20 mg/mL) 2% injection syringe Intravenous, PRN, Starting on Suzi 06/13/20 at 0750, Until Suzi 06/13/20 at 1035, Anesthesia Intra-op, Routine Given 06/13/2020 7:50 AM EDT 100 mg ondansetron (pf) (Zofran) (2 mg/mL) injection Intravenous, PRN, Starting on Suzi 06/13/20 at 0946, Until Suzi 06/13/20 at 1035, Anesthesia Intra-op, Routine Given 06/13/2020 9:46 AM EDT 4 mg PHENYLephrine (Giancarlo-Synephrine) (80 mcg/mL) in sodium chloride 0.9% 250 mL infusion Intravenous, CONTINUOUS PRN, Starting on Suzi 06/13/20 at 0814, Until Suzi 06/13/20 at 1035, Anesthesia Intra-op, Routine Rate/Dose Change 06/13/2020 9:23 AM EDT 10 mcg/min 7.5 mL/hr Restarted 06/13/2020 9:13 AM EDT 20 mcg/min 15 mL/hr Rate/Dose Change 06/13/2020 8:29 AM EDT 20 mcg/min 15 mL/h r propofoL (Diprivan) 10 mg/mL bolus injection (Anesthesia) Intravenous, PRN, Starting on Suzi 06/13/20 at 0750, Until Suzi 06/13/20 at 1035, Anesthesia Intra-op Given 06/13/2020 7:50 AM EDT 150 mg rocuronium (Zemuron) (10 mg/mL) multi-dose injection Intravenous, PRN, Starting on Suzi 06/13/20 at 0750, Until Suzi 06/13/20 at 1035, Anesthesia Intra-op, Routine Given 06/13/2020 7:50 AM EDT 50 mg sugammadex (Bridion) 100 mg/mL injection Intravenous, PRN, Starting on Suzi 06/13/20 at 1006, Until Suzi 06/13/20 at 1035, Anesthesia Intra-op, Routine Given 06/13/2020 10:06 AM EDT 200 mg documented in this encounter
--- OUTSIDE RECORDS SUMMARY | 2023-12-28 16:21 | XMS_ITS | Encounter Summary ---
Author Organization [facility] [place] [address] Care Team Providers Care Vat House Laborer Name Role Phone Unavailable Primary Care Provider Unavailabl e Encounter Details Date Type Department Care Team (Late st Contact Info) Description 06/04/2020 Orders [place] [id number] Unknown None Social History Tobacco Use Types Packs/Day Years [...] Procedure Name Priority Date/Time Associated Diagnosis Comments ECHOCARDIOGRAM TRANSTHORACIC Routine 06/04/2020 documented in this encounter Results * Echo Transthoracic (Complete) (06/04/2020) Anatomical Region Laterality Modality Other 06/04/2020 Narrative 06/04/2020 3:44 PM EDT Amended Report Procedure: ?Transthoracic Echocardiogram Patient: ?DILAN BORRERO ? (Age): 1965(55y) Med Rec#: ? [id number] ?Sex: ?F ? Site Loc: ? [facility] ?Ht / Wt: ??157(cm)/70(kg) Pt. Loc: ?ICU ? BSA: ?1.71 Study Date: ?? 06/04/2020 ?Pt. Type: Inpatient Tape: ? Referring: Steve Ku Reading: Dustin Toney ([id number]) Commissary Manager: La Nena German Diagnosis: *Limited Echo for Wall Motion Abnormalities. BP: ? 141/75 SUMMARY: 1. Technically limited and focused study for segmental wall motion abnormalities. 2. The left ventricular chamber size is normal. There is mild septal hypertrophy of the left ventricle. ??There is normal global left ventricular systolic function. ??Ejection fraction is estimated to be 65%. There are no left ventricular segmental wall motion abnormalities. Findings ? : Study Quality: ? Technically limited Left Ventricle: ? The left ventricular chamber size is normal. ?There is mild septal hypertrophy of the left ventricle. ?There is no evidence of LVOT obstruction. ?No ventricular septal defect is visualized. ?There is normal global left ventricular systolic function. ??Ejection fraction is estimated to be 65%. ?There are no left ventricular segmental wall motion abnormalities. Right Ventricle: ? The right ventricle is normal in size. ?Right ventricular global systolic function is normal. Aorta: ? The aortic root is normal in size. ?The ascending aorta is normal in size. Misc: ? Two-dimensional echo, limited spectral Doppler and color Doppler performed. Chambers 2D ?Value ?Units (Range) ? IVSd (2D) ? 1.28 ? cm ? LVPWd (2D) ?0.95 ? cm ? IVS:LVPW ratio (2D) 1.35 ? ratio ? RWT (2D) ?0.49 ? ratio ? RWT PW (2D) ? 0.42 ? ratio ? LVIDd (2D) ?4.52 ? cm ? LVIDs (2D) ?3.34 ? cm ? LVIDd (2D) index ?2.64 ? cm/m2 ? LVIDs (2D) index ?1.95 ? cm/m2 ? LV FS (2D) ?26.16 ?% ? EF Teichholz (2D) ?? 51.44 ?% ? Volumes/Mass ?Value ?Units (Range) ? LV mass (2D) ?179.71 ? g ? LV mass (2D) index ??105.2 ?g/m2 ? Diastolic/Systolic Function ?Value ?Units (Range) ? MV E-wave Vmax ?0.89 ? m/sec ? MV deceleration time60.34 ?msec ? MV A-wave Vmax ?0.96 ? m/sec ? MV E:A ratio ?0.93 ? ratio ? LV septal e' Vmax ?? 0.07 ? m/sec ? LV lateral e' Vmax ??0.1 ?m/sec ? LV average e' Vmax ??0.09 ? m/sec ? LV E:e' septal ratio12.69 ?ratio ? LV E:e' lateral rati8.88 ? ratio ? LV average E:e' rati10.45 ?ratio ? This report has been electronically signed by: Dustin Toney MD ? 06/04/2020 15:44:34 Images reviewed and interpretation verified [facility] Cardiac Ultrasound Laboratory Procedure Note Dustin Toney MD - 06/04/2020 Amended Report Procedure: Transthoracic Echocardiogram Patient: DILAN CENTENO(Age): 1965(55y) Med Rec#: [id number] Sex: F [facility] [place] [facility] Ht / Wt: 157(cm)/70(kg) Pt. Loc: ICU BSA: 1.71 Study Date: 06/04/2020 Pt. Type: Inpatient Tape: Referring: Steve Ku Reading: Dustin Toney ([id number]) Commissary Manager: La Nena German Diagnosis: *Limited Echo for Wall Motion Abnormalities. BP: 141/75 SUMMARY: 1. Technically limited and focused study for segmental wall motion abnormalities. 2. The left ventricular chamber size is normal. There is mild septal hypertrophy of the left ventricle. There is normal global left ventricular systolic function. Ejection fraction is estimated to be 65%. There are no left ventricular segmental wall motion abnormalities. Findings : Study Quality: Technically limited Left Ventricle: The left ventricular chamber size is normal. There is mild septal hypertrophy of the left ventricle. There is no evidence of LVOT obstruction. No ventricular septal defect is visualized. There is normal global left ventricular systolic function. Ejection fraction is estimated to be 65%. There are no left ventricular segmental wall motion abnormalities. Right Ventricle: The right ventricle is normal in size. Right ventricular global systolic function is normal. Aorta: The aortic root is normal in size. The ascending aorta is normal in size. Misc: Two-dimensional echo, limited spectral Doppler and color Doppler performed. Chambers 2D Value Units (Range) IVSd (2D) 1.28 cm LVPWd (2D) 0.95 cm IVS:LVPW ratio (2D) 1.35 ratio RWT (2D) 0.49 ratio RWT PW (2D) 0.42 ratio LVIDd (2D) 4.52 cm LVIDs (2D) 3.34 cm LVIDd (2D) index 2.64 cm/m2 LVIDs (2D) index 1.95 cm/m2 LV FS (2D) 26.16 % EF Teichholz (2D) 51.44 % Volumes/Mass Value Units (Range) LV mass (2D) 179.71 g LV mass (2D) index 105.2 g/m2 Diastolic/Systolic Function Value Units (Range) MV E-wave Vmax 0.89 m/sec MV deceleration time60.34 msec MV A-wave Vmax 0.96 m/sec MV E:A ratio 0.93 ratio LV septal e' Vmax 0.07 m/sec LV lateral e' Vmax 0.1 m/sec LV average e' Vmax 0.09 m/sec LV E:e' septal ratio12.69 ratio LV E:e' lateral rati8.88 ratio LV average E:e' rati10.45 ratio This report has been electronically signed by: Dustin Toney MD 06/04/2020 15:44:34 Images reviewed and interpretation verified [facility] Cardiac Ultrasound Laboratory Unknown ECHO ORDERABLES documented in this encounter Visit Diagnoses Not on filedocumented in this encounter Additional Health Concerns Infection Onset Date Last Indicated Resolved Time Rule Out C. difficile 06/04/2020 06/05/20202020 2:13 PM EDT documented as of this encounter
--- OUTSIDE RECORDS SUMMARY | 2023-12-28 16:21 | XMS_ITS | Encounter Summary ---
[facility] [place] [address] Care Team Providers Care Plant Maintenance Worker Name Role Phone Unavailable Primary Care Provider Unavailabl e Encounter Details Date Type Department Care Team (Late st Contact Info) Description 07/02/2020 Telephone [place] [id number] Larissa Jarvis Social History Tobacco Use Types Packs/Day Years [...] encounter Miscellaneous Notes * Telephone Encounter - Larissa Jarvis - 07/02/2020 9:02 AM EDT Left message for Jing Stringer at [facility] to get Desiree rescheduled for her hospital follow up appt. Needs HCK with Dr. Montgomery or a mid level. MARK. documented in this encounter Plan of Treatment Not on file documented as of this encounter Visit Diagnoses Not on filedocumented in this encounter
--- OUTSIDE RECORDS SUMMARY | 2023-12-28 16:21 | XMS_ITS | Encounter Summary ---
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 [place] [address] Stella Salazar Anesthesia Record Procedure Summary Procedure Name Responsible Anesthesiologist Anesthesia Start Time Anesthesia Stop Time @EXPLORATORY LAPAROTOMY, REOPENING OF RECENT (WRVU 17.63) (Midline: Abdomen) Emanuel Pugh MD 05/16/20180005/16/201951 Events Date Time Event Comment 05/16/2020 1656 1759 AN Verify 1801 Start 180 An Start Data 1802 Anesthesia Ready 1900 Procedure Start 1933 Transport 1934 an stop data 1951 Stop 1951 Recovery or ICU Handoff Jaylin ent care was transferred to the destination unit staff after review of the patient's medical history, current anesthetic/surgical status and plan, according to the Provider Handoff Checklist. Meds Name Total Rocuronium 50 mg fentaNYL (PF) (50 mcg/mL) infusion syrin ge 50 mL 186.67 mcg NORepinephrine (Levophed) (1 6 mcg/mL) in sodium chloride 0.9% 250 mL infusion 224 mcg propofoL (Diprivan) infusion 271.49 mg metroNIDAZOLE 500 mg Lactated Ringers 50 mL * Agents Name O2 Air N2O Sevoflurane (et) * Blood No blood administrations on file. Lines, Drains, and Airways Type Details Placement Removal NG/OG Tube 18 Fr; left nostril; Nasal Septum Halter; with ease, tubing intact; 05/30/20; 1139 05/11/20 0310 by 05/30/20 1139 by Rasheeda Cardona RN Urethral Catheter 05/11/20; 0121; pres ent on admission to this facility; urethral catheter removed; 05/18/20; 1215 05/11/20 0121 by Heather Yan RN 05/18/20 1215 by Katia Love RN (RETIRED) Percutaneous Central Line - Triple Lumen 05/11/20; 0155; internal jugular vein, right; no longer indicated; 05/19/20; 1506 05/11/20 0155 by Heather Yan RN 05/19/20 1506 by Katia Love RN Incision 05/11/20; 0241; midline; upper quadrant; midline; 11/03/21 (LDA cleanup utility RA#[id number]); 1715 (LDA cleanup utility RA#[id number]) 05/11/20 0241 by Beverly Snáchez RN 11/03/21 1715 by Jody Lara NPWT 05/11/20; 1200; midline; abdomen; 06/26/20 (removed by provider at bedside); 1746 05/11/20 1200 by Katia Love RN 06/26/20 1746 by Linda Dobbs RN Incision 05/11/20; 1645; Righ t; knee; transverse; 06/22/20 (AKA); 1531 05/11/20 1645 by Alexandra Mackey RN 06/22/20 1531 by Marie Medeiros RN ETT ETT Type: Oral; ETT Size: 7.5 mm; Secured at Teeth: 23 cm; Removal Date: 05/23/20; Removal Time: 1345 05/11/20 1920 by Elida Velez SOCIAL WORK MANAGER 05/23/20 1345 by Lopez Luong RCP Drain/Device Site 05/12/20; Right; abdomen; collapsible closed device; 19Fr Round drain connected to 100ml bulb suction.; 06/12/20; 1635 05/12/20 0000 by Mary Porter RN 06/12/20 1635 by Jacquelyn Reveles LNA Enterostomy Tube 05/12/20; 1106; percutaneous endoscopic gastrostomy-jejunostomy (18Fr FRANCISCO J G-J Tube); 45; LUQ (left upper quadrant); 06/26/20 (by provider at bedside); 1746 05/12/20 1106 by Mary Porter RN 06/26/20 1746 by Linda Dobbs RN Chest Tube 05/15/20; 0800; Righ t; lateral; Removed by MD. ; 05/21/20; 1200 05/15/20 0800 by Mayte Gregorio RN 05/21/20 1200 by Rocky Velazquez RN Chest Tube 05/15/20; 0830; Left ; lateral; 05/22/20; 1053 05/15/20 0830 by Mayte Gregorio RN 05/22/20 1053 by Rebeka Olvera, FRANKIE (RETIRED) Percutaneous Central Line - Triple Lumen 05/15/20; 2200; internal jugular vein, left; dialysis/apheresis catheter; no longer indicated; 05/19/20; 1445 05/15/20 2200 by Chaitanya Sorto RN 05/19/20 1445 by Katia Love RN Rectal Tube 05/16/20; 0330; 05/17/20; 1630 05/16/20 0330 by Chaitanya Sorto RN 05/17/20 1630 by Lynne Green RN documented in this encounter Social History [...] OR Notes * Anesthesia Postprocedure Evaluation - Emanuel Pugh MD - 05/16/2020 8:05 PM EST Department of Anesthesiology Post-procedure Note Patient: Eliza Moya Procedure Summary Date: 05/16/20 Room / Location: [address] MAIN OR Anesthesia Start: 1800 Anesthesia Stop: 1951 Procedures: @EXPLORATORY LAPAROTOMY, REOPENING OF RECENT (WRVU 17.63) (Midline Abdomen) MODIFIER ABDOMINAL WASHOUT (Midline Abdomen) WOUND CLOSURE, ABDOMINAL, PARTIAL W/ WOUND VAC (WRVU 6.39) (Midline Abdomen) Diagnosis: (ischemic colitis) Surgeons: Nakul Vega MD Responsible Provider: Emanuel Pugh MD Anesthesia Type: general ASA Status: 4 All Anesthesia Providers: Anesthesiologist: Emanuel Pugh MD HEALTHCARE ADMINISTRATION INTERN: Annie Vazquez CRNA Student Nurse Heat Treater Apprentice: Stella Salazar Vitals Value Taken Time BP 102/62 05/16/201955 Temp 37.1 ??C (98.8 ??F) 05/16/201955 Pulse 94 05/16/202002 Resp 19 05/16/202003 SpO2 95 % 05/16/202002 Pain Level Vitals shown include unvalidated device data. Patient Location: ICU Level of Consciousness: Sedated (Pharmacologic/Intentional) Pain Management: Satisfactory Analgesia PONV: None Cardiovascular Status: At Baseline Respiratory Status: At Baseline and Intubated/Ventilated Postoperative Fluid Status: Intravascular EUvolemia Possible Anesthetic Complications: NONE apparent at time of evaluation Final Primary Anesthesia Type: General (The anesthetic type performed was the same as planned.) Comments: Remained overall stable, on low dose levo gtt at anesthesia stop. Emanuel Pugh MD * Anesthesia Preprocedure Evaluation - Emanuel Pugh MD - 05/16/2020 4:50 PM EST Pre-Anesthesia Evaluation for: Eliza Moya a 55 y.o. female. Procedure(s): @EXPLORATORY LAPAROTOMY, REOPENING OF RECENT (WRVU 17.63) MODIFIER ABDOMINAL WASHOUT WOUND CLOSURE, ABDOMINAL, PARTIAL W/ WOUND VAC (WRVU 6.39) Patient Active Problem List Diagnosis ??? Perforated viscus No past medical history on file. Past Surgical History: Procedure Laterality Date ??? IR CHEST TUBE PLACEMENT BILATERAL 05/15/2020 IR Chest Tube Placement Bilateral 05/15/2020 Ricky Hollis MD [facility] INTERVENTIONL RAD ??? PRO AMPUTATE THIGH, OPEN CIRCULAR Right 05/11/2020 AMPUTATION, ABOVE-KNEE, OPEN, GUILLOTINE (WRVU 10.98) performed by Christine Montgomery MD at [facility] MAIN OR ??? PRO CHOLECYSTOENTER+DONAVAN-EN-Y+GASTROENT N/A 05/12/2020 @DONAVAN-EN-Y WITH GASTROENTEROSTOMY (WRVU 24.21) performed by Meme Torres MD at [facility] MAIN OR ??? PRO EXPLORATORY OF ABDOMEN N/A 05/11/2020 @EXPLORATORY LAPAROTOMY, WITH/WITHOUT BIOPSY(S) (WRVU 12.54) performed by Meme Torres MD at [facility] OR ??? PRO GASTROJEJUNOSTOMY N/A 05/12/2020 @GASTROJEJUNOSTOMY (WRVU 22.53) performed by Meme Torres MD at [facility] OR ??? PRO REOPEN RECENT ABD EXPLORATORY N/A 05/12/2020 @EXPLORATORY LAPAROTOMY, REOPENING OF RECENT (WRVU 17.63) performed by Meme Torres MD at [facility] MAIN OR ??? PRO REPAIR PERF DUOD/JIMENA ULC-WND/INJ N/A 05/11/2020 GASTRORRHAPHY, SUTURE OF PERFORATED, ULCER, WOUND, INJURY (WRVU 22.83) performed by Meme Torres MD at [facility] MAIN OR ??? PRO RESECT SMALL INTEST, SINGL RESEC/ANAS N/A 05/12/2020 @BOWEL RESECTION, SMALL INTESTINE SINGLE ANASTOMOSIS (WRVU 20.82) performed by Meme Torres MD at [facility] MAIN OR Social History Tobacco Use ??? Smoking [...] home medications have been reviewed. Physical Exam: Patient Vitals for the past 24 hrs: Temp Heart Rate From SP02 Pulse Resp BP SpO2 FiO2 (%) O2 Device 05/15/201999 -- (!) 101 bpm (!) 101 11 -- 95 % 40 % Ventilator 05/15/202020 -- -- (!) 102 -- 111/47 -- -- -- 05/15/20 2146 37.6 ??C (99.7 ??F) 96 bpm 96 14 -- 96 % 40 % Ventilator 05/15/20 2300 -- (!) 119 bpm (!) 118 15 -- 97 % -- -- 05/16/20 0025 37 ??C (98.6 ??F) (!) 119 bpm (!) 119 14 -- 91 % 40 % Ventilator 05/16/20 0155 36.9 ??C (98.4 ??F) -- (!) 106 14 -- -- 40 % Ventilator 05/16/20 0400 36.9 ??C (98.4 ??F) (!) 115 bpm (!) 114 16 103/71 96 % 40 % Ventilator 05/16/20 0448 -- (!) 106 bpm (!) 106 16 (!) 79/48 97 % -- -- 05/16/20 0502 -- -- -- 16 -- 97 % -- -- 05/16/20 0548 36.6 ??C (97.9 ??F) -- -- -- -- -- -- -- 05/16/20 0600 -- 90 bpm 91 16 103/61 96 % 40 % Ventilator 05/16/20 0752 -- -- -- 16 -- 93 % -- -- 05/16/20 0800 36.5 ??C (97.7 ??F) -- 94 16 104/65 -- 40 % Ventilator 05/16/20 0900 -- -- 90 16 105/57 -- -- -- 05/16/20 1000 36.5 ??C (97.7 ??F) -- 75 16 (!) 86/56 -- 40 % Ventilator 05/16/20 1100 -- -- 73 16 104/56 -- -- -- 05/16/20 1127 -- -- 71 16 -- -- -- -- 05/16/20 1200 36.1 ??C (97 ??F) -- 72 16 105/58 -- 50 % Ventilator 05/16/20 1300 -- 74 bpm 74 16 97/56 96 % 45 % Ventilator 05/16/20 1400 36.3 ??C (97.3 ??F) -- 74 16 94/58 -- 40 % Ventilator 05/16/20 1500 -- -- 78 16 107/63 -- -- -- 05/16/20 1605 36.5 ??C (97.7 ??F) 100 bpm 100 16 140/73 97 % 40 % Ventilator 05/16/20 1625 -- -- -- 16 -- 97 % -- -- 05/16/20 1700 36.5 ??C (97.7 ??F) 89 bpm 89 16 101/51 97 % 40 % Ventilator Body mass index is 37.28 kg/m??. Height: 157 cm (5' 1.81) Weight: 91.9 kg (202 lb 9.6 oz) Airway Assessment: Mallampati: (Unable to Assess) Cardiovascular Assessment: Rhythm: regular Rate: normal Pulmonary Assessment: unlabored breathing Dental Assessment: Misc Assessment: Patient is wearing No contact(s). IV access: Peripheral line Anesthesia Plan: ASA 4 general, with a(n) intravenous induction Eliza Moya is a 55 y.o. 92 kg female presenting for exploratory laparotomy. Pt has a PMH of COPD on home O2, HTN, obesity, and admitted for perforated viscus to ICU. Currentlyintubated, on low dose levo gtt, and acidotic likely due to acute renal failure. Prior anesthetic hx: Tolerated multiple GA previously. Previously Gr 1 w Mac 3 Labs were reviewed Allergies: -- Doxycycline -- Other (See Comments) -- RADHA- unknown -- Sulfa (Sulfonamide Antibiotics) -- Other (See Comments) -- RADHA- unknown -- Vicodin (Hydrocodone-Acetaminophen) -- Other (See Comments) -- RADHA- unknown NPO Status: Appropriate Anesthetic Plan: GA with ETT Standard ASA monitoring Adequate IV access Emanuel Pugh MD PhD #[id number] Region - Other Informed Consent: Anesthetic plan and risks discussed with healthcare power of energy attorney. Plan discussed with HEALTHCARE ADMINISTRATION INTERN. PAT Clinic Note documented in this encounter Plan of Treatment Not on file documented as of this encounter Visit Diagnoses Not on filedocumented in this encounter Administered Medications Inactive Administered Medications - up to 3 most recent administrations Medication Order MAR Action Action Date Dose Rate Site fentaNYL (PF) (50 mcg/mL) infusion syringe 50 mL 0-200 mcg/hr (0-4 mL/hr), Intravenous, CONTINUOUS, Starting on 05/11/20 at 0245, Until Suzi 05/23/20 at 1401, Pain Scale Goal Less than or equal to 3 or to patient verbalized goal. Initial Infusion rate: 50 mcg/hour; ??Adjust hourly rate by 50% AND bolus 50% of new hourly rate every 15 minutes to achieve goal. ??Rate not to exceed 200 mcg/hr. ?? Pain assessment every 15 minutes initially and reassess pain 15 minutes after each bolus given. Pain assessment MUST be documented prior to rate change., Routine Rate/Dose Verify 05/23/2020 7:30 AM EDT 50 mcg/hr 1 mL/hr Rate/Dose Change 05/23/2020 6:02 AM EDT 50 mcg/hr 1 mL/hr Rate/Dose Change 05/23/2020 2:05 AM EDT 75 mcg/hr 1.5 mL/ hr lactated ringers infusion Intravenous, CONTINUOUS PRN, Starting on Suzi 05/16/20 at 1759, Until Suzi 05/16/20 at 2004, Anesthesia Intra-op New Bag 05/16/2020 5:59 PM EST metroNIDAZOLE (Flagyl) 500 mg in sodium chloride 0.9% 100 mL infusion Intravenous, PRN, Starting on Suzi 05/16/20 at 1840, Until Suzi 05/16/20 at 2004, Administer over 30 Minutes, Anesthesia Intra-op Given 05/16/2020 6:40 PM EST 500 mg NORepinephrine (Levophed) (16 mcg/mL) in sodium chloride 0.9% 250 mL infusion 0-100 mcg/min (0-375 mL/hr), Intravenous, CONTINUOUS, Starting on 05/11/20 at 0615, Until Suzi 05/23/20 at 1401, Titrate to keep MAP greater than 65 mmHg. Start at 2 mcg/min and increase by 2 mcg/min every 3 minutes until goal reached. Do not exceed 200 mcg/min. Warning Vesicant/Irritant Medication, Routine Restarted 05/20/2020 9:43 AM EDT 4 mcg/min 15 mL/hr Rate/Dose Change 05/20/2020 9:21 AM EDT 4 mcg/min 15 mL/h r Rate/Dose Change 05/20/2020 9:06 AM EDT 6 mcg/min 22.5 mL /hr propofoL (Diprivan) infusion 0-50 mcg/kg/min ? 80.8 kg (0-24.24 mL/hr, rounded to 0-24.2 mL/hr), Intravenous, CONTINUOUS, Starting on 05/11/20 at 0815, Until Suzi 05/23/20 at 1401, Titrate to sedation level of RASS Goal (-)1 to 0 . Start at 20 mcg/kg/min, adjust rate by 10 mcg/kg/min every 3 minutes. Once stable, reassess patient every 30 minutes. Rate not to exceed 50 mcg/kg/minute. Change rate only after assessing and documenting RASS. Reassess sedation scores within 30 minutes after every rate change. If under sedated, increase rate by 10 mcg/kg/min. If over sedated, hold sedative until target RASS (-)1 to 0 achieved and then restart at 50% of previous rate. Call bottle house cleaners supervisor if goal not achieved at maximum rate. If SAT is ordered and if patient meets criteria for Spontaneous Awakening Trial, titrate per protocol., Routine Rate/Dose Verify 05/23/2020 7:15 AM EDT 25 mcg/kg/min 12.1 mL/hr Rate/Dose Change 05/23/2020 5:14 AM EDT 25 mcg/kg/min 12.1 mL/hr Rate/Dose Change 05/22/2020 8:20 PM EDT 20 mcg/kg/min 9.7 mL/hr rocuronium (Zemuron) (10 mg/mL) multi-dose injection Intravenous, PRN, Starting on Suzi 05/16/20 at 1753, Until Suzi 05/16/20 at 2004, Anesthesia Intra-op, Routine Given 05/16/2020 5:53 PM EST 50 mg documented in this encounter
--- OUTSIDE RECORDS SUMMARY | 2023-12-28 16:21 | XMS_ITS | Encounter Summary ---
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 Procedures EMERGENCY IPI Referral ID Status Reason Start Date Expiration Date Visits Re quested Visits Authorized [id number] 1 1 Encounter Details Date Type Department Care Team (Late st Contact Info) Description 05/20/2020 7:25 AM EDT Anesthesia [place] [address] Shravan Ortiz MD [facility] [place] [address] Deandra Barbosa CRNA [facility] [place] [address] Anesthesia Record Procedure Summary Procedure Name Responsible Anesthesiologist Anesthesia Start Time Anesthesia Stop Time @SUTURE, SECONDARY, OF ABD WALL FOR EVISCERATION OR DEHISCENCE (WRVU 12.41) (Midline: Abdomen) Shravan Ortiz MD 05/20/20 0725 05/20/20 0950 Events Date Time Event Comment 05/20/2020 0725 AN Verify 0725 Start 0725 Transport Patient transpo rted from IC 4 to OR 20 with ASA monitors in place and emergency medications/equipment at bedside. ETT secured in place with oxygen delivery via bag valve mask at 15 L/min. Bilateral chest tubes to water seal per primary RN with serous drainage. Hemodynamically stable throughout transport. 0726 0733 An Start Data 0734 An Induction 0737 Quick Note Patient to cont inue on scheduled antibiotics per surgeon. 0744 Anesthesia Ready 0804 Procedure Start 0925 Procedure Stop 0939 an stop data Patient transpo rted from OR 20 to IC 4 with ASA monitors in place and emergency medications/equipment at bedside. ETT secured in place with oxygen delivery via bag valve mask at 15 L/min. Hemodynamically stable throughout transport. 0939 Transport 0944 Recovery or ICU Handoff Jaylin ent care was transferred to the destination unit staff after review of the patient's medical history, current anesthetic/surgical status and plan, according to the Provider Handoff Checklist. 0950 Stop Meds Name Total Midazolam 2 mg fentaNYL 100 mcg propofoL (Diprivan) infusion 119.99 mg Rocuronium 70 mg potassium chloride 20 mEq in sterile estrella er 100 mL infusion Cannot be calculated piperacillin-tazobactam (Zos yn) 3.375 g vial attach to sodium chloride 0.9% 50 mL Mini-Bag Plus 0 g fentaNYL (PF) (50 mcg/mL) infusion syrin ge 50 mL 181.25 mcg NORepinephrine (Levophed) (1 6 mcg/mL) in sodium chloride 0.9% 250 mL infusion 646 mcg PHENYLephrine 160 mcg Lactated Ringers 200 mL * Agents Name O2 Air N2O Sevoflurane (et) * Blood No blood administrations on file. Lines, Drains, and Airways Type Details Placement Removal NG/OG Tube 18 Fr; left nostril; Nasal Septum Halter; with ease, tubing intact; 05/30/20; 1139 05/11/20 0310 by 05/30/20 1139 by Rasheeda Cardona RN Incision 05/11/20; 0241; midline; upper quadrant; [...] 23 cm; Removal Date: 05/23/20; Removal Time: 13405/11/20 1920 by Elida Velez, CELL INSPECTOR 05/23/20 1345 by Lopez Luong, [facility] Drain/Device Site 05/12/20; Right; abdomen; collapsible closed [...] Mayte Gregorio RN 05/22/20 1053 by Rebeka Olvera RN Arterial Line 05/17/20; 0200; radi al artery; 20 gauge; continuous blood pressure monitoring; 05/27/20; 0500 05/17/20 0200 by Chaitanya Sorto RN 05/27/20 0500 by Lesia Preciado RN Pressure Injury 05/17/20; 1500; Righ t; other (see comments) (upper lip); (mucosal); LDA not present upon assessment; 06/04/20; 0800 05/17/20 1500 by Priscila Pablo RN 06/04/20 0800 by Sita Greco RN Urethral Catheter 05/18/20; 1230; Physician order; Q1-2hr UOP in ICU patient without alternative; inserted at this facility; none; 06/06/20; 0500 05/18/20 1230 by Katia Love RN 06/06/20 0500 by Janelle Ramesh RN (RETIRED) Percutaneous Central Line - Triple Lumen 05/19/20; 1500; internal jugular vein, left; CVC Bundle Performed; 06/06/20; 3 05/19/20 1500 by Katia Love RN 06/06/203 by Rebekah Quintana RN (RETIRED) Percutaneous Central Line - Triple Lumen 05/19/20; 1506; internal jugular vein, right; dialysis/apheresis catheter; 12 Fr; site care per policy/procedure, catheter/device intact; 05/20/20; 1608 05/19/20 1506 by Katia Love RN 05/20/20 1608 by Rasheeda Cardona RN documented in this encounter Social History [...] Postprocedure Evaluation - Shravan Ortiz MD - 05/20/2020 10:56 AM EDT Department of Anesthesiology Post-procedure Note Patient: Eliza Moya Procedure Summary Date: 05/20/20 Room / Location: [facility] OR [address] [place] [address] MAIN OR Anesthesia Start: 724 Anesthesia Stop: 949 Procedures: @SUTURE, SECONDARY, OF ABD WALL FOR EVISCERATION OR DEHISCENCE (WRVU 12.41) (Midline Abdomen) SUTURE OMENTUM (WRVU 11.1) (N/A Abdomen) MODIFIER WOUND VAC (N/A ) Diagnosis: (duodenal perforation) Surgeons: Antonio Akbar MD Responsible Provider: Shravan Ortiz MD Anesthesia Type: general ASA Status: 3 All Anesthesia Providers: Anesthesiologist: Shravan Ortiz MD HELP DESK COORDINATOR: Deandra Barbosa CRNA Student Nurse Supervisor Conditioning Yard: Francisco Graf Vitals Value Taken Time BP Temp Pulse Resp 18 05/20/20 0955 SpO2 97 % 05/20/20 0947 Pain Level Vitals shown include unvalidated device data. Patient Location: PACU/[facility] Level of Consciousness: Awake and Alert Pain Management: Satisfactory Analgesia PONV: None Cardiovascular Status: At Baseline Respiratory Status: Intubated/Ventilated Postoperative Fluid Status: Intravascular EUvolemia Possible Anesthetic Complications: NONE apparent at time of evaluation Final Primary Anesthesia Type: General (The anesthetic type performed was the same as planned.) Comments: * Anesthesia Preprocedure Evaluation - Shravan Ortiz MD - 05/20/2020 7:25 AM EDT Pre-Anesthesia Evaluation for: Eliza Moya a 55 y.o. female. Procedure(s): @EXPLORATORY LAPAROTOMY, REOPENING OF RECENT (WRVU 17.63) Patient Active Problem List Diagnosis ??? Perforated viscus No past medical history on file. Past Surgical History: Procedure Laterality Date ??? IR CHEST TUBE PLACEMENT BILATERAL 05/15/2020 IR Chest Tube Placement Bilateral 05/15/2020 Ricky Hollis MD [facility] INTERVENTIONL RAD ??? PRO AMPUTATE THIGH, OPEN CIRCULAR Right 05/11/2020 AMPUTATION, ABOVE-KNEE, OPEN, GUILLOTINE (WRVU 10.98) performed by Christine Montgomery MD at [facility] MAIN OR ??? PRO CHOLECYSTOENTER+DONAVAN-EN-Y+GASTROENT N/A 05/12/2020 @DONAVAN-EN-Y WITH GASTROENTEROSTOMY (WRVU 24.21) performed by Meme Torres MD at [facility] OR ??? PRO EXPLORATORY OF ABDOMEN N/A 05/11/2020 @EXPLORATORY LAPAROTOMY, WITH/WITHOUT BIOPSY(S) (WRVU 12.54) performed by Meme Torres MD at [facility] OR ??? PRO GASTROJEJUNOSTOMY N/A 05/12/2020 @GASTROJEJUNOSTOMY (WRVU 22.53) performed by Meme Torres MD at [facility] OR ??? PRO REOPEN RECENT ABD EXPLORATORY N/A 05/12/2020 @EXPLORATORY LAPAROTOMY, REOPENING OF RECENT (WRVU 17.63) performed by Meme Torres MD at [facility] OR ??? PRO REOPEN RECENT ABD EXPLORATORY Midline 05/16/2020 @EXPLORATORY LAPAROTOMY, REOPENING OF RECENT (WRVU 17.63) performed by Nakul Vega MD at [facility] OR ??? PRO REPAIR PERF DUOD/JIMENA ULC-WND/INJ N/A 05/11/2020 GASTRORRHAPHY, SUTURE OF PERFORATED, ULCER, WOUND, INJURY (WRVU 22.83) performed by Meme Torres MD at [facility] OR ??? PRO RESECT SMALL INTEST, SINGL RESEC/ANAS N/A 05/12/2020 @BOWEL RESECTION, SMALL INTESTINE SINGLE ANASTOMOSIS (WRVU 20.82) performed by Meme Torres MD at [facility] OR ??? PRO UNLISTED PX ABDOMEN MUSCULOSKELETAL SYSTEM Midline 05/16/2020 WOUND CLOSURE, ABDOMINAL, PARTIAL W/ WOUND VAC (WRVU 6.39) performed by Nakul Vega MD at [facility] OR Social History Tobacco Use ??? Smoking [...] the past 24 hrs: Temp Pulse Resp SpO2 FiO2 (%) O2 Device 05/19/20 0800 37.4 ??C (99.3 ??F) (!) 106 15 91 % 35 % Ventilator 05/19/20 0810 -- (!) 103 14 90 % -- -- 05/19/20 0820 -- (!) 101 15 (!) 88 % -- -- 05/19/20 0830 -- 93 15 92 % -- -- 05/19/20 0900 -- (!) 101 13 94 % -- -- 05/19/20 1000 37.2 ??C (99 ??F) (!) 101 14 96 % 35 % Ventilator 05/19/20 1100 -- 97 13 96 % -- -- 05/19/20 1120 -- -- 14 95 % -- -- 05/19/20 1200 -- 99 16 94 % -- -- 05/19/20 1230 -- 92 13 93 % -- -- 05/19/20 1300 -- 89 13 94 % -- -- 05/19/20 1400 37.6 ??C (99.7 ??F) 87 14 95 % -- -- 05/19/20 1500 -- 97 17 94 % -- -- 05/19/20 1522 -- -- 17 95 % -- -- 05/19/20 1600 37.8 ??C (100 ??F) 92 15 93 % 40 % Ventilator 05/19/20 1700 -- 100 16 95 % -- -- 05/19/20 1800 37.4 ??C (99.3 ??F) 100 15 93 % 40 % Ventilator 05/19/20 1834 -- (!) 104 16 -- -- -- 05/19/20 1900 -- (!) 101 16 95 % -- -- 05/19/20 1912 -- -- 14 -- -- -- 05/19/20 2000 37 ??C (98.6 ??F) (!) 102 16 91 % 40 % Ventilator 05/19/20 2100 -- 93 15 97 % -- -- 05/19/20 2200 37.1 ??C (98.8 ??F) (!) 105 13 97 % 40 % Ventilator 05/19/20 2300 -- 95 14 95 % -- -- 05/20/20 0000 37 ??C (98.6 ??F) 97 14 98 % 40 % Ventilator 05/20/20 0057 -- -- 14 -- -- -- 05/20/20 0200 36.7 ??C (98.1 ??F) 96 14 95 % 40 % Ventilator 05/20/20 0400 37 ??C (98.6 ??F) 100 15 96 % 40 % Ventilator 05/20/20 0440 37 ??C (98.6 ??F) 97 13 95 % -- -- 05/20/20 0452 -- -- 17 95 % -- -- 05/20/20 0455 37.2 ??C (99 ??F) 92 15 -- -- -- 05/20/20 0530 -- 92 15 97 % -- -- 05/20/20 0600 37 ??C (98.6 ??F) 94 13 96 % 40 % Ventilator 05/20/20 0716 -- -- 14 95 % -- -- Body mass index is 36.59 kg/m??. Height: 157 cm (5' 1.81) Weight: 90.2 kg (198 lb 13.7 oz) Airway Assessment: Mallampati: (Unable to Assess) Cardiovascular Assessment: Rhythm: regular Rate: normal Pulmonary Assessment: breath sounds clear to auscultation Dental Assessment: Misc Assessment: Anesthesia Plan: ASA 3 general, with a(n) intravenous induction 55 year old intubated and ventilated for ex lap. Region - Other Informed Consent: Plan discussed with HELP DESK COORDINATOR and attending. PAT Clinic Note documented in this encounter [...] AM EDT 75 mcg/hr 1.5 mL/ hr fentaNYL (pf) (50 mcg/mL) multi-dose injection Intravenous, PRN, Starting on Wed05/20/20 at 0748, Until Wed05/20/20 at 0950, Anesthesia Intra-op, Routine Given 05/20/2020 7:48 AM EDT 100 mcg lactated ringers infusion Intravenous, CONTINUOUS PRN, Starting on Wed05/20/20 at 0725, Until Wed05/20/20 at 0950, Anesthesia Intra-op New Bag 05/20/2020 7:25 AM EDT midazolam (pf) (Versed) (1 mg/mL) multi-dose injection Intravenous, PRN, Starting on Wed05/20/20 at 0729, Until Wed05/20/20 at 0950, Anesthesia Intra-op, Routine Given 05/20/2020 7:29 AM EDT 2 mg NORepinephrine (Levophed) (16 mcg/mL) in sodium [...] AM EDT 6 mcg/min 22.5 mL /hr PHENYLephrine in NS (PF) (MERISSA-SYNEPHRINE) 0.8 mg/10 mL (80 mcg/mL) multi-dose injection Syrg Intravenous, PRN, Starting on Wed05/20/20 at 0737, Until Wed05/20/20 at 0950, Anesthesia Intra-op, Routine Given 05/20/2020 7:37 AM EDT 160 mcg propofoL (Diprivan) infusion 0-50 mcg/kg/min ? 80.8 [...] restart at 50% of previous rate. Call dye house worker if goal not achieved at maximum rate. [...] mg/mL) multi-dose injection Intravenous, PRN, Starting on Wed05/20/20 at 0748, Until 05/20/20 at 0950, Anesthesia Intra-op, Routine Given 05/20/2020 8:57 AM EDT 10 mg Given 05/20/2020 8:27 AM EDT 20 mg Given 05/20/2020 7:48 AM EDT 40 mg documented in this encounter
--- OUTSIDE RECORDS SUMMARY | 2023-12-28 16:21 | XMS_ITS | Encounter Summary ---
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 Procedures EMERGENCY IPI Referral ID Status Reason Start Date Expiration Date Visits Re quested Visits Authorized [id number] 1 1 Encounter Details Date Type Department Care Team (Late st Contact Info) Description 05/18/2020 6:15 PM EST Anesthesia Event [place] [address] Jeanmarie Rondon MD [facility] [place] [address] Timothy Murphy MD [facility] [place] [address] Anesthesia Record Procedure Summary Procedure Name Responsible Anesthesiologist Anesthesia Start Time Anesthesia Stop Time @EXPLORATORY LAPAROTOMY, REOPENING OF RECENT (WRVU 17.63) (Midline: Abdomen) Jeanmarie Rondon MD 05/18/20181405/18/20 1935 Events Date Time Event Comment 05/18/2020 181 AN Verify 1815 Start 1814 An Start Data 182 Anesthesia Ready 183 Procedure Start 1838 1909 Handoff Intra-procedure anesthesia care was transferred after review of the patient's history, current anesthetic/surgical status and procedural plan, anticipated issues and expected post-operative course (including disposition.) Rimma Mora MD 1923 Procedure Stop 1923 an stop data 1924 Transport 1934 Stop Meds Name Total Propofol 30 mg Rocuronium 50 mg propofoL (Diprivan) infusion 92.92 mg * Agents Name O2 Air N2O Isoflurane (et) * Blood No blood administrations on file. Lines, Drains, and Airways Type Details Placement Removal NG/OG Tube 18 Fr; left nostril; Nasal Septum Halter; with ease, tubing intact; 05/30/20; 1139 05/11/20 0310 by 05/30/20 1139 by Rasheeda Cardona RN (RETIRED) Percutaneous Central Line - Triple [...] Time: 1345 05/11/20 1920 by Elida Velez RCP 05/23/20 1345 by Lopez Luong RCP Drain/Device [...] 05/15/20; 0800; Righ t; lateral; Removed by . ; 05/21/20; 1200 05/15/20 0800 by Mayte Gregorio RN 05/21/20 1200 by Rocky Velazquez RN Chest Tube 05/15/20; 0830; Left ; lateral; 05/22/20; 1053 05/15/20 0830 by Mayte Gregorio RN 05/22/20 1053 by Rebeka Olvera RN (RETIRED) Percutaneous Central Line - Triple Lumen 05/15/20; 2200; internal jugular vein, left; dialysis/apheresis catheter; no longer indicated; 05/19/20; 1445 05/15/20 2200 by Chaitanya Sorto RN 05/19/20 1445 by Katia Love RN Arterial Line 05/17/20; 0200; radi al [...] RN 06/06/20 0500 by Janelle Ramesh RN documented in this encounter Social History [...] OR Notes * Anesthesia Postprocedure Evaluation - Jeanmarie Rondon MD - 05/19/2020 8:10 AM EDT Department of Anesthesiology Post-procedure Note Patient: Eliza Moya Procedure Summary Date: 05/18/20 Room / Location: [address] MAIN OR Anesthesia Start: 1814 Anesthesia Stop: Procedure: @EXPLORATORY LAPAROTOMY, REOPENING OF RECENT (WRVU 17.63) (Midline Abdomen) Diagnosis: (duodenal perforation) Surgeons: Marco Silver MD Responsible Provider: Jeanmarie Rondon MD Anesthesia Type: general ASA Status: 4 All Anesthesia Providers: Anesthesiologist: Timothy Murphy MD; Jeanmarie Rondon MD Lard Maker: Lars Joaquin MD; Rimma Mora MD; Harman Pacheco MD Vitals Value Taken Time BP Temp 37.4 ??C (99.3 ??F) 05/19/20 0600 Pulse 103 05/19/20 0810 Resp 14 05/19/20 0810 SpO2 90 % 05/19/20 0810 Pain Level 0 05/19/20 0600 Vitals shown include unvalidated device data. Patient Location: ICU Level of Consciousness: Sedated (Pharmacologic/Intentional) Pain Management: Pain Being Addressed PONV: None Cardiovascular Status: At Baseline Respiratory Status: At Baseline and Intubated/Ventilated Postoperative Fluid Status: Intravascular EUvolemia Possible Anesthetic Complications: NONE apparent at time of evaluation Final Primary Anesthesia Type: General (The anesthetic type performed was the same as planned.) Comments: JEANMARIE RONDON MD * Anesthesia Preprocedure Evaluation - Timothy Murphy MD - 05/18/2020 6:38 PM EST Pre-Anesthesia Evaluation for: Eliza Moya [...] Bilateral 05/15/2020 Ricky Hollis MD [facility] INTERVENTIONL RAD ??? PRO AMPUTATE THIGH, OPEN CIRCULAR Right 05/11/2020 AMPUTATION, ABOVE-KNEE, OPEN, GUILLOTINE (WRVU 10.98) performed by Christine Montgomery MD at [facility] MAIN OR ??? PRO CHOLECYSTOENTER+DONAVAN-EN-Y+GASTROENT N/A 05/12/2020 @DONAVAN-EN-Y WITH GASTROENTEROSTOMY (WRVU 24.21) performed by Meme Torres MD at [facility] MAIN OR ??? PRO EXPLORATORY OF ABDOMEN N/A 05/11/2020 @EXPLORATORY LAPAROTOMY, WITH/WITHOUT BIOPSY(S) (WRVU 12.54) performed by Meme Torres MD at [facility] MAIN OR ??? PRO GASTROJEJUNOSTOMY N/A 05/12/2020 @GASTROJEJUNOSTOMY (WRVU 22.53) performed by Meme Torres MD at [facility] MAIN OR ??? PRO REOPEN RECENT ABD EXPLORATORY N/A 05/12/2020 @EXPLORATORY LAPAROTOMY, REOPENING OF RECENT (WRVU 17.63) performed by Meme Torres MD at [facility] MAIN OR ??? PRO REOPEN RECENT ABD EXPLORATORY Midline 05/16/2020 @EXPLORATORY LAPAROTOMY, REOPENING OF RECENT (WRVU 17.63) performed by Nakul Vega MD at [facility] MAIN OR ??? PRO REPAIR PERF DUOD/JIMENA ULC-WND/INJ N/A 05/11/2020 GASTRORRHAPHY, SUTURE OF PERFORATED, ULCER, WOUND, INJURY (WRVU 22.83) performed by Meme Torres MD at [facility] MAIN OR ??? PRO RESECT SMALL INTEST, SINGL RESEC/ANAS N/A 05/12/2020 @BOWEL RESECTION, SMALL INTESTINE SINGLE ANASTOMOSIS (WRVU 20.82) performed by Meme Torres MD at [facility] MAIN OR ??? PRO UNLISTED PX ABDOMEN MUSCULOSKELETAL SYSTEM Midline 05/16/2020 WOUND CLOSURE, ABDOMINAL, PARTIAL W/ WOUND VAC (WRVU 6.39) performed by Nakul Vega MD at [facility] MAIN OR Social History Tobacco Use ??? [...] home medications have been reviewed. Physical Exam: No data found. There is no height or weight on file to calculate BMI. Airway Assessment: Mallampati: (Unable to Assess) Cardiovascular [...] and admitted for perforated viscus to ICU. Currentlyintubated Prior anesthetic hx: Tolerated multiple GA previously. Previously Gr 1 w Mac 3 Labs were reviewed Allergies: -- Doxycycline -- Other (See Comments) -- RADHA- unknown -- Sulfa (Sulfonamide Antibiotics) -- Other (See Comments) -- RADHA- unknown -- Vicodin (Hydrocodone-Acetaminophen) -- Other (See Comments) -- RADHA- unknown NPO Status: Appropriate Anesthetic Plan: GA with ETT Standard ASA monitoring Adequate IV access Region - Other Informed Consent: Anesthetic plan and risks discussed with healthcare power of metallurgical specialist. Plan discussed with CHEMISTRY QUALITY CONTROL ANALYST. PAT Clinic Note documented in this encounter Plan of Treatment Not on file documented as of this encounter Visit Diagnoses Not on filedocumented in this encounter Administered Medications Inactive Administered Medications - up to 3 most recent administrations Medication Order MAR Action Action Date Dose Rate Site propofoL (Diprivan) 10 mg/mL bolus injection (Anesthesia) Intravenous, PRN, Starting on 05/18/20 at 1815, Until 05/19/20 at 0811, Anesthesia Intra-op Given 05/18/2020 6:15 PM EST 30 mg propofoL (Diprivan) infusion 0-50 mcg/kg/min ? 80.8 [...] restart at 50% of previous rate. Call seasonal warehouse associate if goal not achieved at maximum rate. [...] mg/mL) multi-dose injection Intravenous, PRN, Starting on 05/18/20 at 1815, Until 05/19/20 at 0811, Anesthesia Intra-op, Routine Given 05/18/2020 6:15 PM EST 50 mg documented in this encounter
--- OUTSIDE RECORDS SUMMARY | 2023-12-28 16:21 | XMS_ITS | Encounter Summary ---
Author Organization [facility] [place] [address] Care Team Providers Care Forestry Supervisor Name Role Phone Unavailable Primary Care Provider Unavailabl e Encounter Details Date Type Department Care Team (Late st Contact Info) Description 06/28/2020 Telephone [place] [phone] Carly Jaquez RN Social History Tobacco Use Types Packs/Day [...] encounter Miscellaneous Notes * Telephone Encounter - Carly Jaquez RN - 06/28/2020 3:07 PM EDT [place] [facility]. Afterspeaking with Rupesh and hearing his questions, this call was deferred to gen surg as it was those wounds he has questions about. Salbador gave him the number to call them so he can clarify with that service. Rupesh understood and was going to call them. documented in this encounter Plan of Treatment Not on file documented as of this encounter Visit Diagnoses Not on filedocumented in this encounter
--- OUTSIDE RECORDS SUMMARY | 2023-12-28 16:21 | XMS_ITS | Encounter Summary ---
Author Organization Formerly [facility] [place] [address] Care Team Providers Care Crayon Sorting Machine Feeder Name Role Phone Unavailable Primary Care Provider Unavailabl e Encounter Details Date Type Department Care Team (Late st Contact Info) Description 06/11/2020 4:00 PM EDT Anesthesia [place] [address] Abiodun Frank MD [facility] DR [place] [address] Anesthesia Record Procedure Summary Procedure Name Responsible Anesthesiologist Anesthesia Start Time Anesthesia Stop Time AMPUTATION, ABOVE-KNEE, SECONDARY CLOSURE OR SCAR REVISION (WRVU 7.29) (Right: Leg Upper) Events No events on file. Meds * [...] OR Notes * Anesthesia Preprocedure Evaluation - Harman Pacheco N - 06/11/2020 2:52 PM EDT Pre-Anesthesia Evaluation for: Eliza Moya a 55 y.o. female. Procedure(s): AMPUTATION, ABOVE-KNEE, SECONDARY CLOSURE OR SCAR REVISION (WRVU 7.29) Patient Active Problem List Diagnosis ??? Perforated viscus No past medical history on file. Past Surgical History: Procedure Laterality Date ??? CT PERITONEAL DRAINAGE 05/27/2020 CT Guided Drain Peritoneal 05/27/2020 [facility] RAD CAT SCAN ??? CT PERITONEAL DRAINAGE 05/27/2020 CT Guided Drain Peritoneal 05/27/2020 [facility] RAD CAT SCAN ??? CT PERITONEAL DRAINAGE 05/27/2020 CT Guided Drain Peritoneal 05/27/2020 [facility] RAD CAT SCAN ??? IR CHEST TUBE PLACEMENT BILATERAL 05/15/2020 IR Chest Tube Placement Bilateral 05/15/2020 Ricky Hollis MD [facility] INTERVENTIONL RAD ??? PRO AMPUTATE THIGH, OPEN CIRCULAR Right 05/11/2020 AMPUTATION, ABOVE-KNEE, OPEN, GUILLOTINE (WRVU 10.98) performed by Christine Montgomery MD at [facility] MAIN OR ??? PRO CHOLECYSTOENTER+DONAVAN-EN-Y+GASTROENT N/A 05/12/2020 @DONAVAN-EN-Y WITH GASTROENTEROSTOMY (WRVU 24.21) performed by Meme Torres MD at [facility] MAIN OR ??? PRO EXPLORATORY OF ABDOMEN N/A 05/11/2020 @EXPLORATORY LAPAROTOMY, WITH/WITHOUT BIOPSY(S) (WRVU 12.54) performed by Meme Torres MD at [facility] OR ??? PRO GASTROJEJUNOSTOMY N/A 05/12/2020 @GASTROJEJUNOSTOMY (WRVU 22.53) performed by Meme Torres MD at [facility] OR ??? PRO REOPEN RECENT ABD EXPLORATORY N/A 05/12/2020 @EXPLORATORY LAPAROTOMY, REOPENING OF RECENT (WRVU 17.63) performed by Meme Torres MD at [facility] OR ??? PRO REOPEN RECENT ABD EXPLORATORY Midline 05/16/2020 @EXPLORATORY LAPAROTOMY, REOPENING OF RECENT (WRVU 17.63) performed by Nakul Vega MD at [facility] OR ??? PRO REOPEN RECENT ABD EXPLORATORY Midline 05/18/2020 @EXPLORATORY LAPAROTOMY, REOPENING OF RECENT (WRVU 17.63) performed by Marco Silver MD at [facility] OR ??? PRO REPAIR PERF DUOD/JIMENA ULC-WND/INJ N/A 05/11/2020 GASTRORRHAPHY, SUTURE OF PERFORATED, ULCER, WOUND, INJURY (WRVU 22.83) performed by Meme Torres MD at [facility] OR ??? PRO RESECT SMALL INTEST, SINGL RESEC/ANAS N/A 05/12/2020 @BOWEL RESECTION, SMALL INTESTINE SINGLE ANASTOMOSIS (WRVU 20.82) performed by Meme Torres MD at [facility] OR ??? PRO SUTURE ABD WALL-DEHIS/EVISCER Midline 05/20/2020 @SUTURE, SECONDARY, OF ABD WALL FOR EVISCERATION OR DEHISCENCE (WRVU 12.41) performed by Antonio Akbar MD at [facility] OR ? ? PRO UNLISTED PX ABD PRTM&OMENTUM N/A 05/20/2020 SUTURE OMENTUM (WRVU 11.1) performed by Antonio Akbar MD at [facility] OR ??? PRO UNLISTED PX ABDOMEN MUSCULOSKELETAL SYSTEM Midline 05/16/2020 WOUND CLOSURE, ABDOMINAL, PARTIAL W/ WOUND VAC (WRVU 6.39) performed by Nakul Vega MD at [facility] OR Social History Tobacco Use ??? Smoking [...] Physical Exam: Preprocedure Vitals Current as of 06/11/20 1452 BP: 132/73 Pulse: 87 Resp: 18 SpO2: 95 Temp: 36.7 ??C (98.1 ??F) Height: 157 cm (5' 1.81) (06/06/20) Weight: 74.3 kg (163 lb 12.8 oz) (06/11/20) BMI: 30.14 IBW: 49.7 kg (109 lb 7.9 oz) Last edited 06/11/20 1114 by Anesthesia Physical Exam Last Filed Perioperative Cognitive Screening None Anesthesia Plan: ASA 3 general, with a(n) intravenous induction This is a preliminary note, finalized note will follow after patient has been seen 72 kg female presenting for AKA. Pt has a PMH of COPD on home O2, HTN, obesity, and originally admitted for perforated viscus to ICUw/ additional concern for thrombosed and cold extremity, has since had bowel repair with amputation, now presenting for AKA. Prior MAC 3 grade 1 view Note allergies to doxy + sulfa 06/04 l;imited echo shows Normal fxn w/o WMA Notable labs include hgb at 8.2 this AM, plt at 776, Cr normal at 0.43 Lab Results Component Value Date HGB 8.2 (L) 06/11/2020 PLATELET 776 (H) 06/11/2020 INR 1.1 05/28/2020 NA 135 06/11/2020 K 3.8 06/11/2020 CREATININE 0.43 (L) 06/11/2020 06/09/20 05/28/20 05/20/20 05/16/20 05/11/20 1225 0254 0245 1720 0247 ABORH O Pos O Pos O Pos O Pos O Pos Allergies: -- Doxycycline -- Other (See Comments) -- RADHA- unknown -- Sulfa (Sulfonamide Antibiotics) -- Other (See Comments) -- RADHA- unknown -- Vicodin (Hydrocodone-Acetaminophen) -- Other (See Comments) -- RADHA- unknown NPO Status: Appropriate Anesthetic Plan: GA with ETT vs LMA Standard ASA monitoring Adequate IV access, PIVx2 in place Region - Other Informed Consent: Anesthetic plan and risks discussed with patient. Use of blood products discussed with patient who consented to blood products. Plan discussed with resident and attending. PAT Clinic Note documented in this encounter Plan of Treatment Not on file documented as of this encounter Visit Diagnoses Not on filedocumented in this encounter
--- OUTSIDE RECORDS SUMMARY | 2023-12-28 16:22 | XMS_ITS | Encounter Summary ---
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 Procedures EMERGENCY IPI Referral ID Status Reason Start Date Expiration Date Visits Re quested Visits Authorized [id number] 1 1 Encounter Details Date Type Department Care Team (Late st Contact Info) Description 05/11/2020 4:26 PM EST Anesthesia Event [place] [id number] Marce Bhatti MD [facility] [place] [address] Anesthesia Record Procedure Summary Procedure Name Responsible Anesthesiologist Anesthesia Start Time Anesthesia Stop Time @AMPUTATION, ABOVE-KNEE, OPEN, GUILLOTINE (WRVU 10.98) (Right: Leg Upper) Marce Bhatti MD 05/11/20 1626 05/11/20 1706 Events Date Time Event Comment 05/11/2020 1626 AN Verify 1626 Start 1626 An Start Data 1635 Anesthesia Ready 1706 Extubation/LMA Out 1706 an stop data 1706 Recovery or ICU Handoff Jaylin ent care was transferred to the destination unit staff after review of the patient's medical history, current anesthetic/surgical status and plan, according to the Provider Handoff Checklist. 1706 Stop 1748 Meds Name Total piperacillin-tazobactam (Zos yn) 3.375 g vial attach to sodium chloride 0.9% 50 mL Mini-Bag Plus 0 g fentaNYL (PF) (50 mcg/mL) infusion syrin ge 50 mL 0 mcg NORepinephrine (Levophed) (16 mcg/mL) in sodium chloride 0.9% 250 mL infusion 675 mcg vasopressin 20 units in sodium chloride 0.9% 100 mL infusion 0 Units propofoL (Diprivan) infusion 0 mg lactated ringers infusion 0 mL * Agents Name O2 Air N2O Sevoflurane (et) * Blood No blood administrations on file. Lines, Drains, and Airways Type Details Placement Removal NG/OG Tube 18 Fr; left nostril; Nasal Septum Halter; with ease, tubing intact; 05/30/20; 1139 05/11/20 0310 by 05/30/20 1139 by Rasheeda Cardona RN (RETIRED) Peripheral IV Line - Single Lumen 05/11/20; 0119; median cubital vein (antecubital fossa), left; 20 gauge (from OSH); removed per policy/procedure; 05/12/20; 1325 05/11/20 0119 by Heather Yan RN 05/12/20 1325 by Chaitanya Trejo RN (RETIRED) Peripheral IV Line - Single Lumen 05/11/20; 0120; median cubital vein (antecubital fossa), right; 18 gauge (from osh); (osh); lumen/catheter not patent, removed per policy/procedure, catheter/device intact; 05/13/20; 1541 05/11/20 0120 by Heather Yan RN 05/13/20 1541 by Chaitanya Trejo RN Urethral Catheter 05/11/20; 0121; pres ent on admission to this facility; urethral catheter removed; 05/18/20; 1215 05/11/20 0121 by Heather Yan RN 05/18/20 1215 by Katia Love RN Arterial Line 05/11/20; 0127; ankita montserrat per policy, other (see comments) (per bender helper); 05/12/20; 1324 05/11/20 0127 by Heather Yan RN 05/12/20 1324 by Chaitanya Trejo RN (RETIRED) Percutaneous Central Line - Triple Lumen 05/11/20; 0155; internal jugular vein, right; no longer indicated; 05/19/20; 1506 05/11/20 0155 by Heather Yan RN 05/19/20 1506 by Katia Love RN ETT Mask Ventilation: No t Attempted (0); ETT Type: Cuffed, Oral; ETT Size: 7.5 mm; Mac Blade: 3; Notes: Asleep, Pre-O2, RSI; Attempts: 1; Laryngoscopy Grade: 1; ETT Placement Verified By: Auscultation, Capnometry; Secured at Teeth: 21 cm; Removal Date: 05/11/20; Removal Time: 170505/11/20 0225 by Harman Pacheco 05/11/20 1706 by Antonio Carbajal Incision 05/11/20; 0241; midline; upper quadrant; midline; [...] RN 06/22/20 1531 by Marie Medeiros RN documented in this encounter Social History Tobacco Use Types Packs/Day Years Used Date Smoking Tobacco: Never Assessed Sex and Gender Information Value Date Recorded Sex Assigned at Not on file Gender Identity Not on file Sexual Orientation Not on file documented as of this encounter OR Notes * Anesthesia Postprocedure Evaluation - Antonio Carbajal - 05/11/2020 5:21 PM EST Department of Anesthesiology Post-procedure Note Patient: Eliaz Moya Procedure Summary Date: 05/11/20 Room / [facility] Anesthesia Start: 1626 Anesthesia Stop: 1706 Procedure: AMPUTATION, ABOVE-KNEE, OPEN, GUILLOTINE (WRVU 10.98) (Right Leg Upper) Diagnosis: (Ischemic RLE) Surgeons: Christine Montgomery MD Responsible Provider: Marce Bhatti MD Anesthesia Type: general ASA Status: 4 - Emergent All Anesthesia Providers: Anesthesiologist: Marce Bhatti MD Supervisor Dog License Officer: Antonio Carbajal MD Vitals Value Taken Time BP Temp Pulse Resp 17 05/11/20 1721 SpO2 Pain Level Vitals shown include unvalidated device data. Patient Location: ICU Level of Consciousness: Sedated (Pharmacologic/Intentional) Pain Management: Satisfactory Analgesia PONV: None Cardiovascular Status: At Baseline Respiratory Status: Intubated/Ventilated Postoperative Fluid Status: Intravascular EUvolemia Possible Anesthetic Complications: NONE apparent at time of evaluation Final Primary Anesthesia Type: General (The anesthetic type performed was the same as planned.) Comments: Returned to ICU room with assistance of RT, on original ventilator settings. Weaning to original settings on Levo. * Anesthesia Preprocedure Evaluation - Rimma Mora MD - 05/11/2020 3:11 PM EST Pre-Anesthesia Evaluation for: Eliza Moya a 55 y.o. female. Procedure(s): AMPUTATION, ABOVE-KNEE, OPEN, GUILLOTINE (WRVU 10.98) Patient Active Problem List Diagnosis ??? Perforated viscus No past medical history on file. No past surgical history on file. Social History Tobacco Use ??? Smoking status: Not on file Substance Use Topics ??? Alcohol use: Not on file Social History Substance and Sexual Activity Drug Use Not on file Allergies Allergen Reactions ??? Doxycycline Other (See Comments) RADHA- unknown ??? Sulfa (Sulfonamide Antibiotics) Other (See Comments) RADHA- unknown ??? Vicodin [Hydrocodone-Acetaminophen] Other (See Comments) RADHA- unknown Medications: MAR and/or home medications have been reviewed. Physical Exam: Patient Vitals for the past 24 hrs: Temp Heart Rate From SP02 Pulse Resp BP SpO2 FiO2 (%) O2 Flow Rate (L/min) O2 Device 05/11/20 0100 36.5 ??C (97.7 ??F) -- (!) 110 (!) 31 (!) 126/101 -- -- 6 L/min NC 05/11/20 0130 -- 83 bpm 83 30 104/88 91 % -- -- -- 05/11/20 0132 -- 84 bpm 85 29 98/76 90 % 100 % 15 L/min NRB 05/11/20 0154 -- 88 bpm 88 20 -- 94 % 100 % 15 L/min NRB 05/11/20 0453 -- -- -- 16 -- 93 % -- -- -- 05/11/20 0500 36.5 ??C (97.7 ??F) 84 bpm 81 16 -- 99 % 35 % -- Ventilator 05/11/20 0600 36.4 ??C (97.5 ??F) 73 bpm 72 16 -- 94 % 35 % -- Ventilator 05/11/20 0700 -- 73 bpm 74 16 -- 98 % -- -- -- 05/11/20 0746 -- -- 78 16 -- -- -- -- -- 05/11/20 0753 -- -- -- 16 -- -- -- -- -- 05/11/20 0800 37 ??C (98.6 ??F) 81 bpm 77 16 -- 98 % -- -- -- 05/11/20 0811 -- 78 bpm 77 16 -- 93 % -- -- -- 05/11/20 0824 -- -- 80 16 -- -- -- -- -- 05/11/20 0900 -- 82 bpm 82 16 -- 95 % -- -- -- 05/11/20 1000 37 ??C (98.6 ??F) 86 bpm 84 16 -- 93 % 35 % -- Ventilator 05/11/20 1100 -- 75 bpm 81 16 -- 93 % -- -- -- 05/11/20 1200 37.2 ??C (99 ??F) -- 72 16 -- -- 35 % -- Ventilator 05/11/20 1300 -- -- 73 17 -- -- -- -- -- 05/11/20 1400 37.4 ??C (99.3 ??F) -- 75 16 -- -- -- -- -- Body mass index is 32.78 kg/m??. Height: 157 cm (5' 1.81) Weight: 80.8 kg (178 lb 2.1 oz) Airway Assessment: Mallampati: (Unable to Assess) Cardiovascular Assessment: Rhythm: regular Rate: normal system normal Pulmonary Assessment: unlabored breathing Dental Assessment: Misc Assessment: Anesthesia Plan: ASA 4 emergent general, 55 y.o. female BMI 32 with R iliac artery occlusion and acute limb ischemia presenting for R AKA. Patient presented on 05/10/20 in septic shock from perforated duodenal ulcer. Currently intubated, sedated, in ICU on vasopressin, norepinephrine, propofol, fentanyl. PMH limited but notable for: COPD on 2L NC at baseline ADR: -- Doxycycline -- Other (See Comments) -- RADHA- unknown -- Sulfa (Sulfonamide Antibiotics) -- Other (See Comments) -- RADHA- unknown -- Vicodin (Hydrocodone-Acetaminophen) -- Other (See Comments) -- RADHA- unknown BP Readings from Last 3 Encounters: 05/11/20 : 98/76 Anesthesia Hx: 05/11/20 Ex Lap - Easy mask, Mac3, G1v, septic throughout case on 20 of norepi at case start and 8 atcase end Lab Results Component Value Date [id number] Not Detected 05/11/2020 No results found for: COVID19 Plan GA with current ETT Standard ASA monitors + current arterial line Remain intubated post-op to ICU. Rimma Mora MD 05/11/2020 [employer]rers Pager #[phone] Informed Consent: Anesthetic plan and risks discussed with daughter/son. Use of blood products discussed with daughter/son who consented to blood products. Plan discussed with attending. PAT Clinic Note documented in this encounter Plan of Treatment Not on file documented as of this encounter Visit Diagnoses Not on filedocumented in this encounter Administered Medications Inactive Administered Medications - up to 3 most recent administrations Medication Order MAR Action Action Date Dose Rate Site lactated ringers infusion 200 mL/hr, Intravenous, CONTINUOUS, Starting on 05/11/20 at 0030, Until 05/12/20 at 0748 Rate/Dose Change 05/12/2020 6:40 AM EST 200 mL/hr 200 mL/hr Rate/Dose Verify 05/12/2020 5:40 AM EST 100 mL/hr 100 mL/ hr Rate/Dose Verify 05/12/2020 3:59 AM EST 100 mL/hr 100 mL/ hr NORepinephrine (Levophed) (16 mcg/mL) in sodium chloride [...] AM EDT 6 mcg/min 22.5 mL /hr documented in this encounter
--- OUTSIDE RECORDS SUMMARY | 2023-12-28 16:22 | XMS_ITS | Encounter Summary ---
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 Procedures EMERGENCY IPI Referral ID Status Reason Start Date Expiration Date Visits Re quested Visits Authorized [id number] 1 1 Encounter Details Date Type Department Care Team (Late st Contact Info) Description 05/12/2020 9:11 AM EST Anesthesia Event [place] [address] Gibson Rosado MD [facility] [place] [address] Curt Dennis MD [facility] [place] [address] Anesthesia Record Procedure Summary Procedure Name Responsible Anesthesiologist Anesthesia Start Time Anesthesia Stop Time @EXPLORATORY LAPAROTOMY, REOPENING OF RECENT (WRVU 17.63) (Abdomen) Gibson Rosado MD 05/12/20 0911 05/12/20 1249 Events Date Time Event Comment 05/12/2020 0911 AN Verify 0911 Start 0911 Transport 0911 An Start Data 0911 An Induction 0917 Anesthesia Ready 0923 0928 Procedure Start 1218 an stop data 1218 Transport 1249 Recovery or ICU Handoff Jaylin ent care was transferred to the destination unit staff after review of the patient's medical history, current anesthetic/surgical status and plan, according to the Provider Handoff Checklist. 1249 Stop Meds Name Total fentaNYL 200 mcg Rocuronium 150 mg NORepinephrine (Levophed) (1 6 mcg/mL) in sodium chloride 0.9% 250 mL infusion 304.5 mcg vasopressin 20 units in sodium chloride 0.9% 100 mL infusion 8.28 Units propofoL (Diprivan) infusion 352.29 mg electrolyte (pH 7.4) (NORMOSOL-R; PLASMA LYTE-A) injection 500 mL Sodium Chloride 0.9% 1,000 mL * Agents Name O2 Air N2O Isoflurane [...] montserrat per policy, other (see comments) (per supervisor electronics assembly); 05/12/20; 1324 05/11/20 0127 by Heather Yan [...] Time: 1345 05/11/20 1920 by Elida Velez MANAGER ADVERTISING 05/23/20 1345 by Lopez Luong [facility] Drain/Device Site 05/12/20; Right; abdomen; collapsible closed device; 19Fr Round drain connected to 100ml bulb suction.; 06/12/20; 1635 05/12/20 0000 by Mary Porter RN 06/12/20 1635 by Jacquelyn Reveles V, MEASUREMENT SUPERVISOR Enterostomy Tube 05/12/20; 1106; percutaneous endoscopic gastrostomy-jejunostomy (18Fr FRANCISCO J G-J Tube); 45; LUQ (left upper quadrant); 04/21/21 (by provider at bedside); 1746 05/12/20 1106 by Mary Porter RN 06/26/20 1746 by Linda Dobbs RN documented in this encounter Social History [...] OR Notes * Anesthesia Postprocedure Evaluation - Gibson Rosado MD - 05/12/2020 1:37 PM EST Department of Anesthesiology Post-procedure Note Patient: Eliza Moya Procedure Summary Date: 05/12/20 Room / Location: [facility] OR [address] [place] [address] MAIN OR Anesthesia Start: 910 Anesthesia Stop: 1248 Procedures: @EXPLORATORY LAPAROTOMY, REOPENING OF RECENT (WRVU 17.63) (N/A Abdomen) @DONAVAN-EN-Y WITH GASTROENTEROSTOMY (WRVU 24.21) (N/A Abdomen) @BOWEL RESECTION, SMALL INTESTINE SINGLE ANASTOMOSIS (WRVU 20.82) (N/A Abdomen) @GASTROJEJUNOSTOMY (WRVU 22.53) (N/A Abdomen) Diagnosis: (Duodenal perforation) Surgeons: Meme Torres MD Responsible Provider: Gibson Rosado MD Anesthesia Type: general ASA Status: 4 - Emergent All Anesthesia Providers: Anesthesiologist: Gibson Rosado MD Scallop Binder: Flaquito Lynne MD Vitals Value Taken Time BP 106/62 05/12/20 1320 Temp 37.1 ??C (98.8 ??F) 05/12/20 1315 Pulse 74 05/12/20 1336 Resp 12 05/12/20 1337 SpO2 98 % 05/12/20 1336 Pain Level Vitals shown include unvalidated device data. Patient Location: ICU Level of Consciousness: Sedated (Pharmacologic/Intentional) Pain Management: Satisfactory Analgesia PONV: None Cardiovascular Status: Hypotension (received treatment) Respiratory Status: Intubated/Ventilated Postoperative Fluid Status: Intravascular EUvolemia Possible Anesthetic Complications: NONE apparent at time of evaluation Final Primary Anesthesia Type: General (The anesthetic type performed was the same as planned.) Comments: * Anesthesia Preprocedure Evaluation - Gibson Rosado MD - 05/12/2020 7:59 AM EST Pre-Anesthesia Evaluation for: Eliza Moya a 55 y.o. female. Procedure(s): AMPUTATION, ABOVE-KNEE, OPEN, GUILLOTINE (WRVU 10.98) Patient Active Problem List Diagnosis ??? Perforated viscus No past medical history on file. Past Surgical History: Procedure Laterality Date ??? PRO AMPUTATE THIGH, OPEN CIRCULAR Right 05/11/2020 AMPUTATION, ABOVE-KNEE, OPEN, GUILLOTINE (WRVU 10.98) performed by Christine Montgomery MD at [facility] MAIN OR ??? PRO EXPLORATORY OF ABDOMEN N/A 05/11/2020 @EXPLORATORY LAPAROTOMY, WITH/WITHOUT BIOPSY(S) (WRVU 12.54) performed by Meme Torres MD at [facility] MAIN OR ??? PRO REPAIR PERF DUOD/JIMENA ULC-WND/INJ N/A 05/11/2020 GASTRORRHAPHY, SUTURE OF PERFORATED, ULCER, WOUND, INJURY (WRVU 22.83) performed by Meme Torres MD at [facility] MAIN OR Social History Tobacco Use ??? [...] breathing Dental Assessment: Misc Assessment: IV access: Central line, A-line and Peripheral line Anesthesia Plan: ASA 4 emergent general, with a(n) intravenous induction 55 y.o. female with R iliac artery occlusion and acute limb ischemia now s/p AKA with initial presentation on 05/10/20 in septic shock from perforated duodenal ulcer. Currently intubated, sedated, in ICU on vasopressin, norepinephrine, propofol, fentanyl. Additional PMHx limited but notable for: COPDon 2L NC at baseline ADR: -- Doxycycline -- Other (See Comments) -- RADHA- unknown -- Sulfa (Sulfonamide Antibiotics) -- Other (See Comments) -- RADHA- unknown -- Vicodin (Hydrocodone-Acetaminophen) -- Other (See Comments) -- RADHA- unknown Anesthesia Hx: 05/11/20 Ex Lap - Easy mask, Mac3, G1v, septic throughout case on 20 of norepi at case start and 8 atcase end Lab Results Component Value Date [id number] Not Detected 05/11/2020 No results found for: COVID19 Plan GA with ETT in situ Standard ASA monitors + current arterial line Remain intubated post-op to ICU. Discussed anesthetic plan with son and consent obtained Attending addendum Agree with above. Case discussed with Kenji Torres and Yasmine. Region - Other Informed Consent: Anesthetic plan [...] MAR Action Action Date Dose Rate Site electrolyte (pH 7.4) (NORMOSOL-R; PLASMALYTE-A) injection Intravenous, CONTINUOUS PRN, Starting on 05/12/20 at 1055, Until 05/12/20 at 1249, Anesthesia Intra-op New Bag 05/12/2020 10:55 AM EST fentaNYL (pf) (50 mcg/mL) multi-dose injection Intravenous, PRN, Starting on 05/12/20 at 0927, Until 05/12/20 at 1249, Anesthesia Intra-op, Routine Given 05/12/2020 11:01 AM EST 50 mcg Given 05/12/2020 9:57 AM EST 50 mcg Given 05/12/2020 9:30 AM EST 50 mcg NORepinephrine (Levophed) (16 mcg/mL) in sodium [...] restart at 50% of previous rate. Call linen room houseperson if goal not achieved at maximum rate. [...] mg/mL) multi-dose injection Intravenous, PRN, Starting on 05/12/20 at 0911, Until 05/12/20 at 1249, Anesthesia Intra-op, Routine Given 05/12/2020 10:40 AM EST 50 mg Given 05/12/2020 9:28 AM EST 50 mg Given 05/12/2020 9:11 AM EST 50 mg sodium chloride 0.9% infusion Intravenous, CONTINUOUS PRN, Starting on 05/12/20 at 0911, Until 05/12/20 at 1249, Anesthesia Intra-op New Bag 05/12/2020 9:11 AM EST vasopressin 20 units in sodium chloride 0.9% 100 mL infusion 0.04 Units/min (12 mL/hr), Intravenous, CONTINUOUS, Starting on 05/11/20 at 0615, Until 05/14/20 at 0747, DO NOT TITRATE: Do not exceed 0.04 units/min. Warning Vesicant/Irritant Medication New Bag 05/12/2020 2:17 PM EST 0.04 Units/min 12 mL/hr Rate/Dose Verify 05/12/2020 1:00 PM EST 0.04 Units/min 12 mL/hr Restarted 05/12/2020 9:43 AM EST 0.04 Units/min 12 mL/hr documented in this encounter
--- OUTSIDE RECORDS SUMMARY | 2023-12-28 16:23 | XMS_ITS | Encounter Summary ---
Author Organization [facility] [place] [address] Care Team Providers Care Ultrasound Coordinator Name Role Phone None Primary Care Provider Unavailabl e Encounter Details Date Type Department Care Team (Late st Contact Info) Description 05/08/2020 Ancillary Procedure Radiology Library at [facility] [place] [phone] Meme Torres MD [facility] [place] [address] Social History Tobacco Use Types Packs/Day Years [...] Diagnosis Comments FILM LIBRARY STORAGE ONLY CT CHEST ABDOMEN PELVIS Routine 05/08/2020 12:00 AM EST documented in this encounter Results * Film Library- Storage Only CT Chest Abdomen Pelvis (05/08/2020 12:00 AM EST) Narrative OMAR - 05/10/2020 11:14 PM EST This exam is auto-finalizing. It's purpose is for storage only. Meme Torres MD IMG FILM LIBRARY ORD ERABLES [place] documented in this encounter Visit Diagnoses Not on filedocumented in this encounter Care Teams Ultrasound Coordinator Relationship Specialty Start Date End Date None None PCP - General 05/06/20 05/10/20 documented as of this encounter
--- OUTSIDE RECORDS SUMMARY | 2023-12-28 16:23 | XMS_ITS | Encounter Summary ---
Author Organization [facility] [place] [address] Care Team Providers Care Mechanical Engineering Professor Name Role Phone None Primary Care Provider Unavailabl e Encounter Details Date Type Department Care Team (Late st Contact Info) Description 05/10/2020 9:30 PM EST Ancillary Procedure Radiology Library at [facility] [place] [place] [facility] [address] Meme Torres MD [facility] [place] [address] Social History Tobacco Use Types Packs/Day Years [...] STORAGE ONLY CT ABDOMEN AND PELVIS Routine 05/10/2020 9:29 PM EST documented in this encounter Results * Film Library- Storage Only CT Abdomen & Pelvis (05/10/2020 9:29 PM EST) Narrative OMAR - 05/10/2020 9:29 PM EST This exam is auto-finalizing. It's purpose is for storage only. Meme Torres MD G FILM LIBRARY ORD ERABLES [place], [place] documented in this encounter Visit Diagnoses Not on filedocumented in this encounter Care Teams Mechanical Engineering Professor Relationship Specialty Start Date End Date None None PCP - General 05/06/20 05/10/20 documented as of this encounter
--- OUTSIDE RECORDS SUMMARY | 2023-12-28 16:23 | XMS_ITS | Encounter Summary ---
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 Procedures EMERGENCY IPI Referral ID Status Reason Start Date Expiration Date Visits Re quested Visits Authorized [id number] 1 1 Encounter Details Date Type Department Care Team (Late st Contact Info) Description 05/11/2020 2:11 AM EST Anesthesia Event [place] [id number] Timothy Murphy MD [facility] [place] [address] Anesthesia Record Procedure Summary Procedure Name Responsible Anesthesiologist Anesthesia Start Time Anesthesia Stop Time @EXPLORATORY LAPAROTOMY, WITH/WITHOUT BIOPSY(S) (WRVU 12.54) (Abdomen) Timothy Murphy MD 05/11/20 02105/11/20 0443 Events Date Time Event Comment 05/11/2020 0211 AN Verify 0211 Start 0211 An Start Data 0217 An Induction 0220 An Intubation 0223 Anesthesia Ready 0303 Quick Note Surgeon notes l arge proximal small bowel tear 0429 an stop data 0443 Stop 0652 Meds Name Total Midazolam 2 mg fentaNYL 100 mcg Rocuronium 100 mg PHENYLephrine 240 mcg Etomidate 20 mg Piperacillin-Tazobactam 3.375 g NORepinephrine INF 1,701 mcg lactated ringers infusion 1,000 mL Albumin (human) 5% 250 mL * Agents Name O2 Air N2O [...] montserrat per policy, other (see comments) (per maintenance porter); 05/12/20; 1324 05/11/20 0127 by Heather Yan [...] 21 cm; Removal Date: 05/11/20; Removal Time: 1706 05/11/20 0225 by Harman Pacheco 05/11/20 1706 by Antonio Carbajal Incision 05/11/20; 0241; midline; upper quadrant; midline; 11/03/21 (LDA cleanup utility RA#[id number]); 1715 (LDA cleanup utility RA#[id number]) 05/11/20 0241 by Beverly Sánchez RN 11/03/21 1715 by Joyd Lara documented in this encounter Social History Tobacco Use Types Packs/Day Years Used Date Smoking Tobacco: Never Assessed Sex and Gender Information Value Date Recorded Sex Assigned at Not on file Gender Identity Not on file Sexual Orientation Not on file documented as of this encounter OR Notes * Anesthesia Postprocedure Evaluation - Timothy Murphy MD - 05/11/2020 6:53 AM EST Department of Anesthesiology Post-procedure Note Patient: Eliza Moya Procedure Summary Date: 05/11/20 Room / Location: [facility] OR [address] [place] [address] MAIN OR Anesthesia Start: 210 Anesthesia Stop: 442 Procedures: @EXPLORATORY LAPAROTOMY, WITH/WITHOUT BIOPSY(S) (WRVU 12.54) (N/A Abdomen) GASTRORRHAPHY, SUTURE OF PERFORATED, ULCER, WOUND, INJURY (WRVU 22.83) (N/A Abdomen) Diagnosis: (perforated viscous) Surgeons: Meme Torres MD Responsible Provider: Timothy Murphy MD Anesthesia Type: general ASA Status: 5 - Emergent All Anesthesia Providers: Anesthesiologist: Timothy Murphy MD Practicing Dermatologist: Harman Pacheco MD Vitals Value Taken Time BP Temp 36.4 ??C (97.5 ??F) 05/11/20 0600 Pulse 72 05/11/20 0652 Resp 16 05/11/20 0652 SpO2 98 % 05/11/20 0652 Pain Level 8 05/11/20 0600 Vitals shown include unvalidated device data. Patient Location: ICU Level of Consciousness: Sedated (Pharmacologic/Intentional) Pain Management: Satisfactory Analgesia PONV: None Cardiovascular Status: Hypotension (received treatment) Respiratory Status: Supplemental O2 (NC or FM) Postoperative Fluid Status: Intravascular HYPOvolemia Possible Anesthetic Complications: NONE apparent at time of evaluation Final Primary Anesthesia Type: General (The anesthetic type performed was the same as planned.) Comments: * Anesthesia Preprocedure Evaluation - Harman Pacheco - 05/11/2020 2:56 AM EST Pre-Anesthesia Evaluation for: Eliza Moya a 55 y.o. female. Procedure(s): @EXPLORATORY LAPAROTOMY, WITH/WITHOUT BIOPSY(S) [facility] Patient Active Problem List Diagnosis ??? Perforated viscus No past medical history on file. No past surgical history on file. Social History Tobacco Use ??? Smoking status: Not on file Substance Use Topics ??? Alcohol use: Not on file Social History Substance and Sexual Activity Drug Use Not on file Not on File Medications: MAR and/or home medications have been reviewed. Physical Exam: Patient Vitals for the past 24 hrs: Temp Heart Rate From SP02 Pulse Resp BP SpO2 FiO2 (%) O2 Flow Rate (L/min) O2 Device 05/11/20 0100 36.5 ??C (97.7 ??F) -- (!) 110 (!) 31 (!) 126/101 -- -- 6 L/min NC 05/11/20129 -- 83 bpm 83 30 104/88 91 % -- -- -- 05/11/20131 -- 84 bpm 85 29 98/76 90 % 100 % 15 L/min NRB 05/11/20 0154 -- 88 bpm 88 20 -- 94 % 100 % 15 L/min NRB There is no height or weight on file to calculate BMI. Airway Assessment: Mallampati: III TM distance: >3 FB Neck ROM: full Cardiovascular Assessment: Rhythm: regular Pulmonary Assessment: (+) decreased breath sounds Dental Assessment: Misc Assessment: Patient is wearing No contact(s). IV access: Peripheral line, Central line and A-line Anesthesia Plan: ASA 5 emergent general, with a(n) intravenous induction 55yo female, little known about past medical history. Patient poor historian, per report, has COPD and used 2L nasal canula at baseline. She has no heart, lung, or liver issues to her knowledge, though based on labs has either LESLIE and/or CKD with chronic malnutrition based on albumin. Presents to hospital with ischemic RLE as well as suspected perforated viscus. Is on high dose pressors, acidotic, with heparin drip on arrival. Arterial access as well as central access in place. Will plan to proceed with verbal consent given urgency of procedure. Lab Results Component Value Date HGB 16.1 (H) 05/11/2020 PLATELET 425 (H) 05/11/2020 INR 1.5 05/11/2020 CREATININE 3.74 (H) 05/11/2020 No results for input(s): ABORH in the last 7068 hours. Allergies: Not on File NPO Status: Appropriate Anesthetic Plan: GA with ETT Standard ASA monitoring Adequate IV access, PIVx2, arterial access, central access Region - Other Informed Consent: Anesthetic [...] intravenous solution Intravenous, CONTINUOUS PRN, Starting on 05/11/20 at 0228, Until 05/11/20 at 0653, Anesthesia Intra-op, Routine New Bag 05/11/2020 2:28 AM EST etomidate (Amidate) (2 mg/mL) injection Intravenous, PRN, Starting on 05/11/20 at 0217, Until 05/11/20 at 0653, Anesthesia Intra-op, Routine Given 05/11/2020 2:17 AM EST 20 mg fentaNYL (pf) (50 mcg/mL) multi-dose injection Intravenous, PRN, Starting on 05/11/20 at 0235, Until 05/11/20 at 0653, Anesthesia Intra-op, Routine Given 05/11/2020 3:16 AM EST 50 mcg Given 05/11/2020 2:35 AM EST 50 mcg lactated ringers infusion 200 mL/hr, Intravenous, CONTINUOUS, Starting on 05/11/20 at 0030, Until 05/12/20 at 0748 Rate/Dose Change 05/12/2020 6:40 AM EST 200 mL/hr 200 mL/hr Rate/Dose Verify 05/12/2020 5:40 AM EST 100 mL/hr 100 mL/ hr Rate/Dose Verify 05/12/2020 3:59 AM EST 100 mL/hr 100 mL/ hr midazolam (pf) (Versed) (1 mg/mL) multi-dose injection Intravenous, PRN, Starting on 05/11/20 at 0243, Until 05/11/20 at 0653, Anesthesia Intra-op, Routine Given 05/11/2020 2:43 AM EST 2 mg NORepinephrine (Levophed) (16 mcg/mL) in sodium chloride 0.9% 250 mL infusion Intravenous, CONTINUOUS PRN, Starting on 05/11/20 at 0211, Until 05/11/20 at 0653, Anesthesia Intra-op, Routine Rate/Dose Change 05/11/2020 4:12 AM EST 8 mcg/min 30 mL/hr Rate/Dose Change 05/11/2020 4:07 AM EST 6 mcg/min 22.5 mL /hr Rate/Dose Change 05/11/2020 3:30 AM EST 10 mcg/min 37.5 mL /hr PHENYLephrine in NS (PF) (MERISSA-SYNEPHRINE) 0.8 mg/10 mL (80 mcg/mL) multi-dose injection Syrg Intravenous, PRN, Starting on 05/11/20 at 0217, Until 05/11/20 at 0653, Anesthesia Intra-op, Routine Given 05/11/2020 2:17 AM EST 240 mcg piperacillin-tazobactam (Zosyn) injection Intravenous, PRN, Starting on 05/11/20 at 0254, Until 05/11/20 at 0653, Anesthesia Intra-op, Routine Given 05/11/2020 2:54 AM EST 3.375 g rocuronium (Zemuron) (10 mg/mL) multi-dose injection Intravenous, PRN, Starting on 05/11/20 at 0217, Until 05/11/20 at 0653, Anesthesia Intra-op, Routine Given 05/11/2020 2:17 AM EST 100 mg documented in this encounter
--- OUTSIDE RECORDS SUMMARY | 2023-12-28 16:23 | XMS_ITS | Encounter Summary ---
Author Organization [facility] [place] [address] Care Team Providers Care Enterprise Sales Person Name Role Phone None Primary Care Provider Unavailabl e Encounter Details Date Type Department Care Team (Late st Contact Info) Description 05/10/2020 11:45 PM EST Ancillary Procedure Radiology Library at [facility], [place] [address] Meme Torres MD [facility] [place] [address] Social History Tobacco Use Types Packs/Day Years [...] 2ND READ CT ABDOMEN AND PELVIS Routine 05/10/2020 11:42 PM EST documented in this encounter Results * Request For 2nd Read CT Abdomen & Pelvis (05/10/2020 11:42 PM EST) Anatomical Region Laterality Modality Abdomen, Pelvis SO Impressions 05/13/2020 8:40 AM EST 1. ??Perforated bowel; first segment of the duodenum. Question ulcer. 2. ??Although this was not a CT angiogram, the degree of calcification in the right common iliac artery is worrisome for either high-grade stenosis or occlusion. Clinical correlation with examination is needed. 3. ??Complete collapse of the right middle and left lower lobes. Thank you for letting us participate in the care of this patient. For questions regarding this report, please contact the number below. ? Electronically signed by: Radha Villareal MD, [facility] ([phone]), at 05/13/2020 8:40 AM Narrative 05/13/2020 8:40 AM EST EXAMINATION: REQUEST FOR 2ND READ CT ABDOMEN AND PELVIS CLINICAL HISTORY: Concern for gastric perf and right common iliac occlusion; What Modality is the exam? CT Scan; Body Part (please add comments as necessary): Abdomen and pelvis; Sending Institution [facility]; Date of exam 20200510; I believe a reinterpretation of this exam may alter care of Patient. Yes TECHNIQUE: Axial, sagittal, and coronal images from an IV contrast enhanced CT scan from [facility] are submitted for interpretation. Scan date 05/10/2020 COMPARISON: CT chest from [facility] 05/08/2020 FINDINGS: Lower chest: There is complete collapse of the right middle lobe and likely complete collapse of the left lower lobe, unchanged from prior. Lingular scarring is unchanged. No basilar pericardial or pleural effusion. Liver: Normal size and attenuation with patent hepatic and portal veins. Small irregular area of low density adjacent to the falciform ligament is favored to represent focal fatty infiltration, unchanged. Bile ducts: Nondilated. Gallbladder: No calcified gallstones. Normal caliber wall. Pancreas: Normal attenuation without ductal dilatation. Spleen: Normal. Adrenals: Normal. Kidneys: Partially duplicated right renal collecting system is present. No hydronephrosis. Solitary 5 mm low-attenuation lesion in the upper pole is too small to characterize. There is a 12 mm left upper pole simple cyst. No collecting system dilatation or calculi. Urinary Bladder: Completely decompressed. Vasculature: Patent extrahepatic portal vein, splenic vein and SMV. Diffuse atherosclerotic calcifications are present, very dense in the right common iliac artery, highly suspicious for hemodynamically significant stenosis or occlusion. No aortic aneurysm. Lymph Nodes: No enlarged lymph nodes. Bowel: No dilated small or large bowel loops or bowel wall thickening. Normal terminal ileum. The appendix is not identified. There is discontinuity of the right lateral wall of the first segment of the duodenum (series 601 image 53, series 2 image 264). Peritoneum and mesentery: Diffuse moderate volume pneumoperitoneum is present, and there is large volume ascites. Free fluid is in continuity with the mural defect in the duodenum. Abdominal wall: There are 2 adjacent paraumbilical hernias, one containing free intraperitoneal air, the second containing fat. Reproductive organs: Uterus is surgically absent. Neither ovary is identified. There are no adnexal masses. Osseous structures: Moderate L5/S1 degenerative disc disease is present and there is mild facet arthropathy at same level. Right femoral bone island is noted. No suspicious lytic or sclerotic osseous lesions. Procedure Note Radha Villareal MD - 05/13/2020 EXAMINATION: REQUEST FOR 2ND READ CT ABDOMEN AND PELVIS CLINICAL HISTORY: Concern for gastric perf and right common iliacocclusion; What Modality is the exam? CT Scan; Body Part (please add comments as necessary): Abdomen and pelvis; Sending Institution [facility]; Date of exam 20200510; I believe a reinterpretation of this exam may alter careof Patient. Yes TECHNIQUE: Axial, sagittal, and coronal images from an IV contrast enhanced [facility] scanfrom [facility] are submitted for interpretation. Scan date05/10/2020 COMPARISON: CT chest from [facility] 05/08/2020 FINDINGS: Lower chest: There is complete collapse of the right middle lobe andlikely complete collapse of the left lower lobe, unchanged from prior. Lingular scarring is unchanged. No basilar pericardial or pleural effusion. Liver: Normal size and attenuation with patent hepatic and portal veins.Small irregular area of low density adjacent to the falciform ligament isfavored to represent focal fatty infiltration, unchanged. Bile ducts: Nondilated. Gallbladder: No calcified gallstones. Normal caliber wall. Pancreas: Normal attenuation without ductal dilatation. Spleen: Normal. Adrenals: Normal. Kidneys: Partially duplicated right renal collecting system is present.No hydronephrosis. Solitary 5 mm low-attenuation lesion in the upper pole istoo small to characterize. There is a 12 mm left upper pole simple cyst. No collecting system dilatation or calculi. Urinary Bladder: Completely decompressed. Vasculature: Patent extrahepatic portal vein, splenic vein and SMV.Diffuse atherosclerotic calcifications are present, very dense in the right commoniliac artery, highly suspicious for hemodynamically significant stenosis orocclusion. No aortic aneurysm. Lymph Nodes: No enlarged lymph nodes. Bowel: No dilated small or large bowel loops or bowel wall thickening.Normal terminal ileum. The appendix is not identified. There is discontinuity ofthe right lateral wall of the first segment of the duodenum (series 601 image53, series 2 image 264). Peritoneum and mesentery: Diffuse moderate volume pneumoperitoneum ispresent, and there is large volume ascites. Free fluid is in continuity with themural defect in the duodenum. Abdominal wall: There are 2 adjacent paraumbilical hernias, one containingfree intraperitoneal air, the second containing fat. Reproductive organs: Uterus is surgically absent. Neither ovary isidentified. There are no adnexal masses. Osseous structures: Moderate L5/S1 degenerative disc disease is presentand there is mild facet arthropathy at same level. Right femoral bone islandis noted. No suspicious lytic or sclerotic osseous lesions. IMPRESSION 1. Perforated bowel; first segment of the duodenum. Question ulcer. 2. Although this was not a CT angiogram, the degree of calcification inthe right common iliac artery is worrisome for either high-grade stenosis or occlusion. Clinical correlation with examination is needed. 3. Complete collapse of the right middle and left lower lobes. Thank you for letting us participate in the care of this patient. Forquestions regarding this report, please contact the number below. Electronically signed by: Radha Villareal MD, [facility]([phone]), at 05/13/2020 8:40 AM Meme Torres MD IMG OUTSIDE INTERPRE TATION ORDERABLES documented in this encounter Visit Diagnoses Not on filedocumented in this encounter Additional Health Concerns Infection Onset Date Last Indicated Resolved Time Rule Out C. difficile 05/16/2020 05/16/20202020 2:05 PM EST documented as of this encounter Care Teams Enterprise Sales Person Relationship Specialty Start Date End Date None None PCP - General 05/06/20 05/10/20 documented as of this encounter
[2023-12-28 19:28] LABS: HCT 45.6 % (36.0-46.0); HGB 14.5 g/dL (11.2-15.7); MCH 30.3 pg (27.0-33.0); MCHC 31.8 % (32.0-36.0); MCV 95 fL (80-95); MPV 10.4 fL (8.0-11.0); Platelet Count 323 10^3/uL (130-400); RBC 4.78 10^6/uL (3.93-5.22); RDW 13.3 % (11.7-14.6); RDW-SD 47.5 fL; WBC 8.85 10^3/uL (4.4-10.8)
[2023-12-28 19:40] LABS: Iron 111 ug/dL (50-170); Total Iron Binding Capacity 228 ug/dL (250-450); Transferrin Sat 49 % (15-50)
[2023-12-28 19:51] LABS: Ferritin 279 ng/mL (8-252)
== END 2023-12-28 16:13 | disposition home or self-care (01) ==
LOC: NCHCN 16:12
PROVIDERS: PCP Nurse Practitioner Family; Visit Provider Nurse Practitioner Family
DX: D50.9 Iron deficiency anemia, unspecified (principal)
CPT/HCPCS: 85027; 82728; 83540; 83550

== ENCOUNTER 2024-04-25 19:38 | Outpatient (REF) | payer MEDICARE, MEDICAID, SELFPAY ==
[2024-04-25 22:38] LABS: ALT 35 U/L (14-59); AST 16 U/L (15-37); Albumin 3.8 g/dL (3.4-5.0); Alkaline Phosphatase 120 U/L (46-116); Anion Gap 3.6 mmol/L (3-11); BUN 20 mg/dL (7-18); Bilirubin, Total 0.82 mg/dL (0.2-1.0); CO2 32.4 mmol/L (21.0-32.0); CREATININE 0.9 mg/dL (0.55-1.02); Calcium 9.2 mg/dL (8.5-10.1); Chloride 107 mmol/L (98-107); Estimated GFR 72.73 (mL/min/1.73m2); Glucose 117 mg/dL (74-106); Potassium 4.1 mmol/L (3.5-5.1); Sodium 143 mmol/L (136-145); Total Protein 6.8 g/dL (6.4-8.2)
== END 2024-04-25 19:39 | disposition home or self-care (01) ==
LOC: NCHCN 19:38
PROVIDERS: PCP Nurse Practitioner Family; Visit Provider Nurse Practitioner Family
DX: E03.9 Hypothyroidism, unspecified (principal); I10 Essential (primary) hypertension
CPT/HCPCS: 80053; 84443